=== PATIENT | female | born 1950 | race American Indian/Alaskan Native ===

== ENCOUNTER 2016-10-02 19:10 | Inpatient (IN) | payer MEDICARE ==
[2016-10-02 19:10] VITALS: BMI 28.3
--- NOTE | 2016-10-02 20:00 | C.PDOC ---
History Of Present Illness Patient with a Hx of a spinal tumor presents to the ER with a complaint of a dull, aching, cramping, abdominal pain. Patient is currently speaking in complete sentences; denies nausea, vomiting, or urinary symptoms. Time Seen by Provider: 10/02/16 20:00 Chief Complaint (Nursing): Abdominal Pain History Per: Patient History/Exam Limitations: no limitations Onset/Duration Of Symptoms: Hrs Current Symptoms Are (Timing): Still Present Severity: Moderate Pain Scale Rating Of: 4 Location Of Pain/Discomfort: Diffuse Radiation Of Pain To:: None Quality Of Discomfort: Dull, Aching, Cramping Associated Symptoms: denies: Fever, Chills, Nausea, Vomiting Exacerbating Factors: None Alleviating Factors: None Recent travel outside of the [place]: No Abnormal Vaginal Bleeding: No Past Medical History Reviewed: Historical Data, Nursing Documentation, Vital Signs Vital Signs: Last Vital Signs Temp 97.3 F L 10/02/16 19:15 Pulse 105 H 10/03/16 00:20 Resp 20 10/03/16 00:20 BP 115/78 10/03/16 00:20 Pulse Ox 100 10/03/16 00:20 - Medical History PMH: HTN, Parkinson's Disease Surgical History: No Surg Hx Family History: States: No Known Family Hx - Social History Hx Alcohol Use: No Hx Substance Use: No - Immunization History Hx Tetanus Toxoid Vaccination: Yes Hx Influenza Vaccination: No Hx Pneumococcal Vaccination: No Review Of Systems Constitutional: Negative for: Fever, Chills Gastrointestinal: Positive for: Abdominal Pain. Negative for: Nausea, Vomiting Physical Exam - Physical Exam Appears: Non-toxic Skin: Warm, Dry Head: Normacephalic Eye(s): bilateral: Normal Inspection Oral Mucosa: Dry Neck: Supple Chest: Symmetrical, No Tenderness, Other (port r chest) Cardiovascular: Rhythm Regular, No Murmur Respiratory: Rales (r>L), No Rhonchi, No Wheezing Gastrointestinal/Abdominal: Soft, Tenderness (Diffuse), No Distention, No Rebound Back: No CVA Tenderness Extremity: No Tenderness Extremity: Bilateral: Atraumatic, Normal Color And Temperature Pulses: Left Dorsalis Pedis: Normal, Right Dorsalis Pedis: Normal Neurological/Psych: Oriented x3, Normal Speech, Normal Cognition Gait: Steady ED Course And Treatment - Laboratory Results Result Diagrams: 10/02/16 20:43 10/02/16 20:43 O2 Sat by Pulse Oximetry: 98 (Room air) Pulse Ox Interpretation: Normal Progress Note: Blood work and urinalysis ordered. Pepcid, morphine, zofran, and IV fluids administered. Disposition Discussed With DrJose E: Charu Gustafson Comment: accepted the pt on her service and took over the care at 1AM Doctor Will See Patient In The: Hospital Counseled Patient/Family Regarding: Studies Performed, Diagnosis - Disposition Disposition: HOSPITALIZED Disposition Time: 20:00 Condition: FAIR Forms: Factor 14 (Croatian) - POA Present On Arrival: Poor Glycemic Control - Clinical Impression Clinical Impression: Abdominal pain, Dyspnea, CHF (congestive heart failure), Leukopenia - Scribe Statement The provider has reviewed the documentation as recorded by the Scribe Eugenio Paez All medical record entries made by the Scribe were at my direction and personally dictated by me. I have reviewed the chart and agree that the record accurately reflects my personal performance of the history, physical exam, medical decision making, and the department course for this patient. I have also personally directed, reviewed, and agree with the discharge instructions and disposition. Decision To Admit - Pt Status Changed To: Hospital Disposition Of: Inpatient - Admit Certification Admit to Inpatient:: After my assessment, the patient will require hospitalization for at least two midnights. This is because of the severity of symptoms shown, intensity of services needed, and/or the medical risk in this patient being treated as an outpatient. - InPatient: Physician Admission Certification:: After my assessment, the patient will require hospitalization for at least two midnights. This is because of the severity of symptoms shown, intensity of services needed, and/or the medical risk in this patient being treated as an outpatient. - . Bed Request Type: Telemetry Admitting Physician: Charu Gustafson Patient Diagnosis: Abdominal pain, Dyspnea, CHF (congestive heart failure), Leukopenia
[2016-10-02] MEDS ORDERED: Sodium Chloride 0.9% 1,000 ML IV ONE (20:09)
[2016-10-02 20:47] LABS: BASO % 0.6 % (0.0-2.0); EOS % 0.4 % (0.0-4.0); HEMATOCRIT 42.4 % (34.0-47.0); LYMPH # 1.5 K/uL (1.0-4.3); LYMPH % 48.6 % (20.0-40.0); MEAN CELL VOLUME 95.7 fL (81.0-99.0); MEAN CORPUSCULAR HEMOGLOBIN 31.5 pg (27.0-31.0); MEAN CORPUSCULAR HGB CONC 32.9 g/dL (33.0-37.0); MEAN PLATELET VOLUME 9.8 fL (7.2-11.7); MONO # 0.4 K/uL (0.0-0.8); MONO % 12.2 % (0.0-10.0); NRBC % 0.2 % (0.0-2.0)
[2016-10-02 20:58] LABS: CHLORIDE 106 mmol/L (98-107)
[2016-10-02 20:59] LABS: INR 1.3; POTASSIUM 3.3 mmol/L (3.6-5.2); SODIUM 142 mmol/L (132-148)
[2016-10-02 21:01] LABS: ALB/GLOB RATIO 1.6 (1.0-2.1); AST/SGOT 25 U/L (14-36); BILIRUBIN,TOTAL 1.1 mg/dL (0.2-1.3); BLOOD UREA NITROGEN 18 mg/dL (7-17); CARBON DIOXIDE 20 mmol/L (22-30); GFR AFRICAN-AMERICAN > 60; TOTAL PROTEIN 5.7 g/dL (6.3-8.3)
[2016-10-02 21:02] LABS: ALKALINE PHOSPHATASE 92 U/L (38-126); ALT/SGPT 20 U/L (9-52); GLUCOSE,RANDOM 112 mg/dL (65-105)
[2016-10-02] MEDS ORDERED: Iodixanol 320 MG/ML 100 ML BOTTLE IV ONE (21:26)
--- NOTE | 2016-10-02 22:58 | CT ---
EXAM: CT Abdomen and Pelvis With Intravenous Contrast CLINICAL HISTORY: 65 years old, female; Pain and condition or disease; Cancer; Other: Lymphoma/spine; Abdominal pain; Generalized; Additional info: Abd pain, spinal ca TECHNIQUE: Axial computed tomography images of the abdomen and pelvis with intravenous contrast. This CT exam was performed using one or more of the following dose reduction techniques: automated exposure control, adjustment of the mA and/or kV according to patient size, and/or use of iterative reconstruction technique. Coronal and sagittal reformatted images were created and reviewed. CONTRAST: 100 mL of visipaque 320 administered intravenously. COMPARISON: No relevant prior studies available. FINDINGS: Lower thorax: Moderate bilateral pleural effusions are identified, right greater than left with adjacent compressive atelectasis. The heart is enlarged, with a small pericardial effusion. ABDOMEN: Liver: No acute findings. Gallbladder and bile ducts: The gallbladder is minimally distended, without calcified stones. Pericholecystic fluid is detected with adjacent inflammatory change. No significant intra- or extrahepatic biliary ductal dilation. Pancreas: Enhances homogeneously. No ductal dilation. No discrete mass. Spleen: No acute findings. Adrenals: No acute findings. Kidneys and ureters: No acute findings. No hydronephrosis or renal calculi. No discrete solid mass. PELVIS: Bladder: No acute findings. Reproductive: No acute findings. Appendix: The appendix is of normal caliber (series 3, image 132; series 601, image 47) . ABDOMEN and PELVIS: Stomach and bowel: No obstruction. Trace mural thickening within the pylorus, as well as within multiple loops of nondistended small bowel, possibly reactive. Peritoneum: Free fluid is identified within the right paracolic gutter and retroperitoneum extending into the pelvis. Lymph nodes: Minimally enlarged lymph nodes are identified within the retroperitoneum and at the root of the mesentery, a nonspecific finding. Vasculature: Calcified atherosclerotic disease. Bones: No acute fracture. Prior vertebral augmentation is present within the L4 vertebral body. IMPRESSION: Minimal distention of the gallbladder with pericholecystic fluid and adjacent inflammatory change, for which dedicated ultrasound is suggested.
[2016-10-02 23:22] LABS: RBC URINE 1 /hpf (0-3); URINE BACTERIA OCC (<OCC); URINE BILIRUBIN 1+ (NEGATIVE); URINE BLOOD NEGATIVE (NEGATIVE); URINE COLOR Amber (YELLOW); URINE GLUCOSE (UA) NORMAL (Normal); URINE KETONE 1+ mg/dL (NEGATIVE); URINE LEUKOCYTE ESTERASE NEG Leu/uL (Negative); URINE PROTEIN 1+ mg/dL (NEGATIVE); URINE UROBILINOGEN NORMAL mg/dL (0.2-1.0); WBC URINE 3 /hpf (0-5)
[2016-10-03 01:02] LABS: TROPONIN I 0.061 ng/mL (0.00-0.120)
[2016-10-03] MEDS ORDERED: Potassium Chloride 10 mEq ER Tab PO STA (04:39)
[2016-10-03] MEDS ORDERED: Potassium Chloride 20 mEq ER Tab PO ONE ×2 (05:14→20:15)
--- NOTE | 2016-10-03 08:16 | RAD ---
PROCEDURE: CHEST RADIOGRAPH, 1 VIEW HISTORY: Shortness of breath COMPARISON: None available. FINDINGS: LUNGS: Right chest wall port with tip extending to the cavoatrial junction. Diffuse increased interstitial lung markings bilaterally suggestive for edema and or infiltrate. Right hilar prominence. Prominent increased markings at both lung bases suggestive for infiltrate and or edema. Consolidative changes at the right lung base. Blunted right costophrenic angle. PLEURA: As above. CARDIOVASCULAR: Cardiomegaly. OSSEOUS STRUCTURES: Degenerative changes in the spine with paravertebral osteophytes. VISUALIZED UPPER ABDOMEN: Normal. OTHER FINDINGS: None. IMPRESSION: Right chest wall port with tip extending to the cavoatrial junction. Diffuse increased interstitial lung markings bilaterally suggestive for edema and or infiltrate. Right hilar prominence. Prominent increased markings at both lung bases suggestive for infiltrate and or edema. Consolidative changes at the right lung base. Blunted right costophrenic angle.
[2016-10-03] MEDS ORDERED: HYDROmorphone 0.5 mg/0.5 ml ISec IVP PRN (15:15)
[2016-10-03] MEDS ORDERED: Carbidopa/Levodopa 25/100 CR PO SCH (18:00)
[2016-10-03] MEDS: Carbidopa/Levodopa 25/100 CR PO SCH (19:31)
--- NOTE | 2016-10-04 02:46 | CP.PCM.CON ---
History of Present Illness - History of Present Illness History of Present Illness: Consultation for evaluation of CHF HPI : 65-year-old female with past medical history significant for Parkinson's disease that was diagnosed 3 years ago according to her family members. History was obtained with the help of yi Truong and her sister who are at the bedside. 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 She initially had gone to be [facility] and was subsequently transferred over to [facility] due to inability to walk . After the diagnosis of the lymphoma she had undergone a kyphoplasty. She was followed by Dr. Khushboo Pimentel at [place] who also has a office in [place]. She had undergone chemotherapy and had undergone a PET scan about 10 days ago at [facility] on September 24. According to yi Truong she has been reasonably active was in [place] for 3 month and subsequently in [place] for 3 months and then recently she has been here for the last few months. At baseline she was doing well until recently when she started to have severe shortness of breath wheezing and abdominal discomfort. She was brought to the hospital by her brother for evaluation of worsening shortness of breath new onset and evaluation. She was seen by some bed operator about 5-6 months ago at [facility] and was told that she will have further workup as outpatient was would not follow through. Currently she is laying in bed comfortably. And into initial presentation her BNP was noted to be very high at 6000 for which further workup has to be ordered. Review of Systems - Review of Systems All systems: reviewed and no additional remarkable complaints except - Constitutional Constitutional: As Per HPI, Fatigue, Lethargy, Malaise. absent: Anorexia, Chills, Daytime Sleepiness, Excessive Sweating, Fever, Frequent Falls, Headache , Increased Appetite, Night Sweats, Snoring, Sleep Apnea, Weight Gain, Weight Loss, Weakness, Other - EENT Eyes: As Per HPI. absent: Blind Spots, Blurred Vision, Change in Vision, Decreased Night Vision, Diplopia, Discharge, Dry Eye, Exophthalmos, Floaters, Irritation, Itchy Eyes, Loss of Peripheral Vision, Pain, Photophobia, Requires Corrective Lenses, Sees Flashes, Spots in Vision, Tunnel Vision, Other Visual Disturbances, Loss of Vision, Other Ears: As Per HPI. absent: Decreased Hearing, Ear Discharge, Ear Pain, Tinnitus , Abnormal Hearing, Disequilibrium, Dizziness, Other Nose/Mouth/Throat: As Per HPI. absent: Epistaxis, Nasal Congestion, Nasal Discharge, Nasal Obstruction, Nasal Trauma, Nose Pain, Post Nasal Drip, Sinus Pain, Sinus Pressure, Bleeding Gums, Change in Voice, Dental Pain, Dry Mouth, Dysphagia, Halitosis, Hoarsness, Lip Swelling, Mouth Lesions, Mouth Pain, Odynophagia, Sore Throat, Throat Swelling, Tongue Swelling, Facial Pain, Neck Pain, Neck Mass, Other - Breasts Breasts: As Per HPI. absent: Change in Shape, Mass, Pain, Nipple Discharge, Nipple Inversion, Skin Changes, Swelling, Other - Cardiovascular Cardiovascular: Dyspnea on Exertion, Orthopnea, Paroxysmal Nocturnal Dyspnea, Rapid Heart Rate. absent: As Per HPI, Acrocyanosis, Chest Pain, Chest Pain at Rest, Chest Pain with Activity, Claudication, Diaphoresis, Dyspnea, Edema, Irregular Heart Rhythm, Pain Radiating to Arm/Neck/Jaw, Leg Edema, Leg Ulcers, Lightheadedness, Palpitations, Pedal Edema, Radiating Pain, Slow Heart Rate, Syncope, Other - Respiratory Respiratory: As Per HPI, Cough, Dyspnea, Dyspnea on Exertion. absent: Hemoptysis, Wheezing, Snoring, Stridor, Pain on Inspiration, Chest Congestion, Excessive Mucous Production, Change in Mucous Color, Pain with Coughing, Other - Gastrointestinal Gastrointestinal: As Per HPI, Abdominal Pain, Constipation, Dyspepsia, Nausea. absent: Belching, Bloating, Change in Bowel Habits, Change in Stool Character, Coffee Ground Emesis, Cramping, Diarrhea, Dysphagia, Early Satiety, Excessive Flatus, Fecal Incontinence, Heartburn, Hematemesis, Hematochezia, Loose Stools, Melena, Odynophagia, Temesmus, Vomiting, Other - Genitourinary Genitourinary: As Per HPI. absent: Change in Urinary Stream, Difficulty Urinating, Dysuria, Flank Pain, Hematuria, Pyuria, Nocturia, Urinary Incontinence, Urinary Frequency, Urinary Hesitance, Urinary Urgency, Voiding Freq/Small Amts, Freq UTI, Hx Renal/Bladder Calculi, Hx /Renal Surgery, Bladder Distension, Other - Musculoskeletal Musculoskeletal: As Per HPI. absent: Abnormal Gait, Arthralgias, Atrophy, Back Pain, Deformity, Joint Swelling, Limited Range of Motion, Loss of Height, Muscle Cramps, Muscle Weakness, Myalgias, Neck Pain, Numbness, Radiating Pain into Limb, Stiffness, Tingling, Other - Integumentary Integumentary: As Per HPI - Neurological Neurological: As Per HPI, Abnormal Gait. absent: Abnormal Hearing, Abnormal Movements, Abnormal Speech, Behavioral Changes, Burning Sensations, Confusion, Convulsions, Disequilibrium, Dizziness, Numbness, Focal Weakness, Frequent Falls , Headaches, Lack of Coordination, Loss of Vision, Memory Loss, Paresthesias, Radicular Pain, Restless Legs, Sensory Deficit, Syncope, Tingling, Tremor, Vertigo, Weakness, Other Visual Disturbances, Other - Psychiatric Psychiatric: As Per HPI, Depression. absent: Abnormal Sleep Pattern, Anhedonia , Anxiety, Auditory Hallucinations, Behavioral Changes, Change in Appetite, Change in Libido, Confusion, Difficulty Concentrating, Hallucinations, Homicidal Ideation, Hopelessness, Irritability, Memory Loss, Mood Swings, Panic Attacks, Paranoia, Suicidal Ideation, Visual Hallucinations, Tactile Hallucinations, Other - Endocrine Endocrine: As Per HPI. absent: Change in Body Appearance, Change in Libido, Cold Intolorance, Deepening of Voice, Excessive Sweating, Fatigue, Flushing, Heat Intolorance, Increase in Ring/Shoe/Hat Size, Palpitations, Polydipsia, Polyphagia, Polyuria, Other - Hematologic/Lymphatic Hematologic: As Per HPI. 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 ) Hx Chemotherapy: Yes (R-CHOP therapy ) Other/Comment: " I HAVE SOME KIND OF CANCER IN MY BACK" - MUSCULOSKELETAL/RHEUMATOLOGICAL Hx Back Pain: Yes (kyphoplasty ) Hx Falls: No Hx Herniated Disk: Yes - GASTROINTESTINAL Hx Constipation: Yes - PSYCHIATRIC Hx Substance Use: No - ANESTHESIA Hx Anesthesia: Yes Hx Anesthesia Reactions: No Meds Allergies/Adverse Reactions: Allergies Allergy/AdvReac Type Severity Reaction Status Date / Time No Known Allergies Allergy Unverified 11/29/15 17:54 - Medications Medications: Current Medications Carbidopa/Levodopa (Sinemet Cr) 1 tab PO BID [facility] Last Admin: 10/03/16 19:31 Dose: 1 tab Docusate Sodium (Colace) 100 mg PO TID [facility] Last Admin: 10/03/16 19:23 Dose: 100 mg Entacapone (Comtan) 200 mg PO BID [facility] Last Admin: 10/03/16 19:23 Dose: 200 mg Famotidine (Pepcid) 40 mg PO DAILY [facility] Furosemide (Lasix) 40 mg IVP Q12H [facility] Last Admin: 10/03/16 20:22 Dose: 40 mg Hydromorphone HCl (Dilaudid) 0.5 mg IVP Q4H PRN PRN Reason: Pain, Mild (1-3) Potassium Chloride (K-Dur 20 Meq Er Tab) 20 meq PO DAILY [facility] Sennosides (Senokot Tab) 8.6 mg PO DAILY [facility] Physical Exam - Constitutional Appears: Well - Head Exam Head Exam: ATRAUMATIC, NORMAL INSPECTION, NORMOCEPHALIC - Eye Exam Eye Exam: EOMI, Normal appearance, PERRL Pupil Exam: NORMAL ACCOMODATION, PERRL - ENT Exam ENT Exam: Mucous Membranes Moist, Normal Exam - Neck Exam Neck exam: Positive for: Normal Inspection - Respiratory Exam Respiratory Exam: Rales, Rhonchi, NORMAL BREATHING PATTERN - Cardiovascular Exam Cardiovascular Exam: Tachycardia, REGULAR RHYTHM, +S1, +S2, Systolic Murmur - GI/Abdominal Exam GI & Abdominal Exam: Normal Bowel Sounds, Soft, Tenderness - Extremities Exam Extremities exam: Positive for: normal inspection - Back Exam Back exam: NORMAL INSPECTION - Neurological Exam Neurological exam: Alert, CN II-XII Intact, Oriented x3, Reflexes Normal - Psychiatric Exam Psychiatric exam: Normal Affect, Normal Mood - Skin Skin Exam: Dry, Intact, Normal Color, Warm Results - Vital Signs Recent Vital Signs: Last Vital Signs Temp 97.9 F 10/03/16 23:30 Pulse 113 H 10/03/16 23:44 Resp 20 10/03/16 23:30 BP 105/65 10/03/16 23:30 Pulse Ox 96 10/03/16 23:30 - Labs Result Diagrams: 10/02/16 20:43 10/04/16 10:59 Labs: Laboratory Results - last 24 hr 08/11/1110/03/16 10/03/16 06:26 13:51 22:45 Total Creatine Kinase 74 51 51 CK-MB (Mass) 0.82 0.78 0.72 Troponin I, Quant 0.0480 0.0470 0.0730 Assessment & Plan (1) CHF (congestive heart failure) Assessment and Plan: Acute on chronic systolic heart failure class IV stage D. New onset congestive heart failure. Will need to be have evaluation with her high BNP. Initiate her on low-dose Lasix and rest modulators her creatinine function is normal. Dr. Arnett from oncology told me that she had R CHOP therapy about 6 months ago. An echocardiogram done prior to the arch showed normal ejection fraction. She was not on any rest modulators prior to this admission. Check echocardiogram and if depending on the ejection fraction will need further ischemic evaluation. Status: Acute (2) Dyspnea Status: Acute (3) H/O lymphoma Status: Acute
[2016-10-04] MEDS: Potassium Chloride 20 mEq ER Tab PO SCH (10:21)
[2016-10-04] MEDS: Carbidopa/Levodopa 25/100 CR PO SCH ×3 (10:21→21:03)
[2016-10-04] MEDS: Enoxaparin 40 mg Syringe SC SCH (10:21)
[2016-10-04 11:20] LABS: BLOOD UREA NITROGEN 18 mg/dL (7-17); CALCIUM 8.8 mg/dl (8.6-10.4); CARBON DIOXIDE 26 mmol/L (22-30); CHLORIDE 104 mmol/L (98-107); GFR AFRICAN-AMERICAN > 60; GLUCOSE,RANDOM 119 mg/dL (65-105); POTASSIUM 3.2 mmol/L (3.6-5.2); SODIUM 144 mmol/L (132-148)
--- NOTE | 2016-10-04 11:38 | CP.PCM.CON ---
History of Present Illness - History of Present Illness History of Present Illness: 65 yo female admitted with Sob and exacerbation of CHF. Noted to have diffuse abdominal pain, mainly in upper to mid abdomen, for past 3-4 days. Noted to be constipated and no stool for past [address] showed thickening of GB wall and pericholecystic fluid. NO h/o stones. No bleeding or melena. Has h/o lymphoma deemed to be in remission. Review of Systems - Review of Systems Systems not reviewed;Unavailable: Language Barrier - Cardiovascular Cardiovascular: Dyspnea, Dyspnea on Exertion, Orthopnea - Respiratory Respiratory: Cough, Dyspnea - Gastrointestinal Gastrointestinal: As Per HPI Past Patient History - Past Social History Smoking Status: Never Smoked Alcohol: None Drugs: Denies - CARDIAC Hx Hypertension: Yes - NEUROLOGICAL Hx Parkinson's Disease: Yes - HEMATOLOGICAL/ONCOLOGICAL Other/Comment: " I HAVE SOME KIND OF CANCER IN MY BACK" - MUSCULOSKELETAL/RHEUMATOLOGICAL Hx Falls: No - PSYCHIATRIC Hx Substance Use: No - ANESTHESIA Hx Anesthesia: No Hx Anesthesia Reactions: No Meds Allergies/Adverse Reactions: Allergies Allergy/AdvReac Type Severity Reaction Status Date / Time No Known Allergies Allergy Unverified 11/29/15 17:54 - Medications Medications: Current Medications Carbidopa/Levodopa (Sinemet Cr) 1 tab PO BID REPLACED BY [facility] Last Admin: 10/04/16 10:21 Dose: 1 tab Docusate Sodium (Colace) 100 mg PO TID REPLACED BY [facility] Last Admin: 10/04/16 10:21 Dose: 100 mg Enoxaparin Sodium (Lovenox) 40 mg SC DAILY REPLACED BY [facility] Last Admin: 10/04/16 10:21 Dose: 40 mg Entacapone (Comtan) 200 mg PO BID REPLACED BY [facility] Last Admin: 10/04/16 10:23 Dose: 200 mg Famotidine (Pepcid) 40 mg PO DAILY [facility]PL[facility] BY [facility] Last Admin: 10/04/16 10:21 Dose: 40 mg Furosemide (Lasix) 40 mg IVP Q12H REPLACED BY [facility] Last Admin: 10/04/16 08:50 Dose: Not Given Hydromorphone HCl (Dilaudid) 0.5 mg IVP Q4H PRN PRN Reason: Pain, Mild (1-3) Potassium Chloride (K-Dur 20 Meq Er Tab) 20 meq PO DAILY [facility]PL[facility]ED BY [facility] Last Admin: 10/04/16 10:21 Dose: 20 meq Sennosides (Senokot Tab) 8.6 mg PO DAILY [facility] Last Admin: 10/04/16 10:21 Dose: 8.6 mg Physical Exam - Constitutional Appears: No Acute Distress - Head Exam Head Exam: ATRAUMATIC, NORMOCEPHALIC - Respiratory Exam Respiratory Exam: Decreased Breath Sounds, NORMAL BREATHING PATTERN - Cardiovascular Exam Cardiovascular Exam: REGULAR RHYTHM, +S1 - GI/Abdominal Exam GI & Abdominal Exam: Distended, Normal Bowel Sounds, Soft, Tenderness. absent: Mass, Organomegaly, Rebound Additional comments: Mild midabdominal tenderness to deep palpation with mild gaseous distension. No mass or guarding. - Rectal Exam Rectal Exam: Deferred - Extremities Exam Extremities exam: Positive for: normal inspection - Neurological Exam Neurological exam: Alert Additional comments: Mildly confused to time - Psychiatric Exam Psychiatric exam: Normal Affect, Normal Mood - Skin Skin Exam: Dry, Warm Results - Vital Signs Recent Vital Signs: Last Vital Signs Temp 98.0 F 10/04/16 08:02 Pulse 103 H 10/04/16 10:31 Resp 20 10/04/16 08:02 BP 92/60 L 10/04/16 10:31 Pulse Ox 100 10/04/16 08:02 - Labs Result Diagrams: 10/02/16 20:43 10/04/16 10:59 Labs: Laboratory Results - last 24 hr 10/03/16 10/03/16 10/04/16 13:51 22:45 10:59 Sodium 144 Potassium 3.2 L Chloride 104 Carbon Dioxide 26 Anion Gap 17 BUN 18 H Creatinine 0.7 Est GFR ( Amer) > 60 Est GFR (Non-Af Amer) > 60 Random Glucose 119 H Calcium 8.8 Total Creatine Kinase 51 51 CK-MB (Mass) 0.78 0.72 Troponin I, Quant 0.0470 0.0730 - Imaging and Cardiology CT scan - abdomen Status: Image reviewed by me, Report reviewed by me Assessment & Plan (1) Upper abdominal pain Assessment and Plan: r/o cholecystitis, partial SBO, lymphoma with mesenteric nodes/ascites, other etiology. May be related to constipation. Sono and HIDA Scan ordered to r/o acalculous cholecystitis Stool softener + Miralax prn. Status: Acute (2) Cholecystitis Assessment and Plan: pericholecystic fluid and GB thickening suspicious for cholecystitis. Sono pending per Dr Hawkins Advise HIDA Scan. Status: Acute (3) H/O lymphoma Status: Chronic
--- NOTE | 2016-10-04 11:41 | CP.PCM.HP ---
History of Present Illness - History of Present Illness History of Present Illness: Admitted this patient because of abdominal pains and SOB. Patient claims she started to have the pains all over her abdomen shortness o9f breath for a fews days. No chest pains associated, or palpitations. No nauisrea or vomiting assocaited. She claims she has been Constipated x 3 days now. Present on Admission - Present on Admission Any Indicators Present on Admission: No Review of Systems - Review of Systems Systems not reviewed;Unavailable: Altered Mental Status - Cardiovascular Cardiovascular: Dyspnea - Gastrointestinal Gastrointestinal: Abdominal Pain, Constipation - Reproductive: Female Reproductive:Female: Menopausal - Integumentary Integumentary: absent: As Per HPI, Acne, Alopecia, Bleeding Lesions, Change in Hair, Change in Nails, Change in Pigmentation, Changing Lesions, Dry Skin, Erythema, Furuncle, Hirsutism, Lesions, New Lesions, Non-Healing Lesions, Photosensitivity, Pruritus, Rash, Skin Pain, Skin Ulcer, Sores, Striae, Swelling , Unusual Bruising, Wounds, Jaundice, Other - Neurological Neurological: Confusion Past Patient History - Tetanus Immunizations Tetanus Immunization: Unknown - Past Medical History & Family History Past Medical History?: Yes - Past Social History Smoking Status: Never Smoked Chewing Tobacco Use: No Cigar Use: No Drugs: Denies - CARDIAC Hx Cardiac Disorders: No Hx Hypertension: Yes - PULMONARY Hx Respiratory Disorders: No - NEUROLOGICAL Hx Neurological Disorder: No Hx Parkinson's Disease: Yes - HEENT Hx HEENT Problems: No - RENAL Hx Chronic Kidney Disease: No - HEMATOLOGICAL/ONCOLOGICAL Hx Blood Disorders: No Other/Comment: " I HAVE SOME KIND OF CANCER IN MY BACK" - INTEGUMENTARY Hx Dermatological Problems: No - MUSCULOSKELETAL/RHEUMATOLOGICAL Hx Back Pain: Yes Hx Falls: No - GASTROINTESTINAL Hx Gastrointestinal Disorders: No - PSYCHIATRIC Hx Substance Use: No - ANESTHESIA Hx Anesthesia: No Hx Anesthesia Reactions: No Meds Allergies/Adverse Reactions: Allergies Allergy/AdvReac Type Severity Reaction Status Date / Time No Known Allergies Allergy Unverified 11/29/15 17:54 Physical Exam - Constitutional Appears: Chronically Ill - Head Exam Head Exam: ATRAUMATIC, NORMAL INSPECTION, NORMOCEPHALIC - Eye Exam Eye Exam: Normal appearance Pupil Exam: NORMAL ACCOMODATION, PERRL - ENT Exam ENT Exam: Mucous Membranes Moist, Normal External Ear Exam - Neck Exam Neck exam: Positive for: Tenderness - Respiratory Exam Respiratory Exam: Rales, NORMAL BREATHING PATTERN - Cardiovascular Exam Cardiovascular Exam: Irregular Rhythm - GI/Abdominal Exam GI & Abdominal Exam: Normal Bowel Sounds, Soft, Tenderness - Rectal Exam Rectal Exam: Deferred - Extremities Exam Extremities exam: Positive for: full ROM, normal inspection - Back Exam Back exam: NORMAL INSPECTION - Neurological Exam Neurological exam: Altered - Psychiatric Exam Psychiatric exam: Anxious - Skin Skin Exam: Dry, Intact, Warm Results - Vital Signs Recent Vital Signs: Last Vital Signs Temp 98.0 F 10/04/16 08:02 Pulse 103 H 10/04/16 10:31 Resp 20 10/04/16 08:02 BP 92/60 L 10/04/16 10:31 Pulse Ox 100 10/04/16 08:02 - Labs Result Diagrams: 10/02/16 20:43 10/04/16 10:59 Labs: Laboratory Results - last 24 hr 10/03/16 10/03/16 10/04/16 13:51 22:45 10:59 Sodium 144 Potassium 3.2 L Chloride 104 Carbon Dioxide 26 Anion Gap 17 BUN 18 H Creatinine 0.7 Est GFR ( Amer) > 60 Est GFR (Non-Af Amer) > 60 Random Glucose 119 H Calcium 8.8 Total Creatine Kinase 51 51 CK-MB (Mass) 0.78 0.72 Troponin I, Quant 0.0470 0.0730 Assessment & Plan (1) Abdominal pain Status: Acute (2) CHF (congestive heart failure) Status: Acute (3) Dyspnea Status: Acute - Assessment and Plan (Free Text) Assessment: Assessment: CHF Cardiac arrythymia V Tach. Spinal lymphoma. Situational confusion. Abdominal pains. Plan: Plan: Cardiology consult. GI consult. US abdomen. Fluids PO.
[2016-10-04 12:59] LABS: AMYLASE 45 U/L (30-110)
--- NOTE | 2016-10-04 13:30 | US ---
HISTORY: Abdominal pain COMPARISON: CT abdomen and pelvis with IV contrast performed 10/14/16 TECHNIQUE: Sonographic evaluation of the abdomen. FINDINGS: LIVER: Measures 12.9 cm in sagittal dimension. Echogenic liver may be seen in setting of hepatic parenchymal disease or fatty infiltration. No focal hepatic mass identified. The main portal vein appears patent with normal directional flow. No intrahepatic bile duct dilatation. Perihepatic ascites. GALLBLADDER: No gallstones. Gallbladder wall appears thickened measuring up to 5 mm. Negative sonographic Gallagher's sign as assessed by the rock mason. COMMON BILE DUCT: Measures 2 mm. PANCREAS: Not well visualized. RIGHT KIDNEY: Measures 10.5 x 3.7 x 5.2cm. No obstructing calculus or hydronephrosis identified. 1.2 x 1.0 x 1.3 cm right renal cyst. LEFT KIDNEY: Measures 10.6 x 5.0 x 5.3cm. No obstructing calculus or hydronephrosis identified. SPLEEN: Measures approximately 6.1 cm. AORTA: Limited views appear unremarkable. IVC: Limited views appear unremarkable. OTHER FINDINGS: Incidental note is made of right pleural effusion. IMPRESSION: Echogenic liver may be seen in setting of hepatic parenchymal disease or fatty infiltration. Gallbladder wall appears thickened measuring up to 5 mm. No evidence of gallstones. Negative sonographic Gallagher's sign as assessed by the rock mason. 1.3 cm right renal cyst. Incidental note is made of right-sided pleural effusion. Small perihepatic ascites
--- NOTE | 2016-10-04 19:02 | CP.PCM.PN ---
Subjective - Date & Time of Evaluation Date of Evaluation: 10/04/16 Time of Evaluation: 18:59 - Subjective Subjective: was given a dose of lasix had significant diuresis feeling SOB mildly improved echo done today Objective - Vital Signs/Intake and Output Vital Signs (last 24 hours): Temp Pulse Resp BP Pulse Ox 97.9 F 105 H 20 93/62 L 99 10/04/16 16:00 10/04/16 17:10 10/04/16 16:00 10/04/16 16:00 10/04/16 16:00 Intake and Output: 10/04/16 10/04/16 06:59 18:59 Intake Total 170 500 Output Total 1000 Balance -830 500 - Medications Medications: Current Medications Carbidopa/Levodopa (Sinemet Cr) 2 tab PO QID [facility] Last Admin: 10/04/16 18:19 Dose: 2 tab Docusate Sodium (Colace) 100 mg PO TID [facility] Last Admin: 10/04/16 17:58 Dose: 100 mg Enoxaparin Sodium (Lovenox) 40 mg SC DAILY [facility] Last Admin: 10/04/16 10:21 Dose: 40 mg Entacapone (Comtan) 200 mg PO BID [facility] Last Admin: 10/04/16 17:59 Dose: 200 mg Famotidine (Pepcid) 40 mg PO DAILY [facility] Last Admin: 10/04/16 10:21 Dose: 40 mg Furosemide (Lasix) 40 mg IVP Q12H [facility] Last Admin: 10/04/16 08:50 Dose: Not Given Hydromorphone HCl (Dilaudid) 0.5 mg IVP Q4H PRN PRN Reason: Pain, Mild (1-3) Magnesium Hydroxide (Milk Of Magnesia) 30 ml PO ONCE ONE Stop: 10/04/16 20:01 Potassium Chloride (K-Dur 20 Meq Er Tab) 20 meq PO DAILY [facility] Last Admin: 10/04/16 10:21 Dose: 20 meq Sennosides (Senokot Tab) 8.6 mg PO DAILY [facility] Last Admin: 10/04/16 10:21 Dose: 8.6 mg - Labs Labs: 10/04/16 10:59 PT 14.3 SECONDS (9.7-12.2) H 10/02/16 20:43 INR 1.3 10/02/16 20:43 APTT 30 SECONDS (21-34) 10/02/16 20:43 - Constitutional Appears: Well - Head Exam Head Exam: ATRAUMATIC, NORMAL INSPECTION, NORMOCEPHALIC - Eye Exam Eye Exam: EOMI, Normal appearance, PERRL Pupil Exam: NORMAL ACCOMODATION, PERRL - ENT Exam ENT Exam: Mucous Membranes Moist, Normal Exam - Neck Exam Neck Exam: Full ROM, Normal Inspection. absent: Lymphadenopathy - Respiratory Exam Respiratory Exam: Clear to Ausculation Bilateral, Rales, NORMAL BREATHING PATTERN - Cardiovascular Exam Cardiovascular Exam: Tachycardia, +S1, +S2, Murmur - GI/Abdominal Exam GI & Abdominal Exam: Soft, Normal Bowel Sounds. absent: Tenderness - Extremities Exam Extremities Exam: Full ROM, Normal Capillary Refill, Normal Inspection. absent : Joint Swelling, Pedal Edema - Back Exam Back Exam: NORMAL INSPECTION - Neurological Exam Neurological Exam: Alert, Awake, CN II-XII Intact, Oriented x3 - Psychiatric Exam Psychiatric exam: Normal Affect, Normal Mood - Skin Skin Exam: Dry, Intact, Normal Color, Warm Assessment and Plan (1) CHF (congestive heart failure) Assessment & Plan: Echo reviewed shows EF of 20-25% with MR and TR and dilated LV BB and ACEi low dose lasix therapy plan for complete heart catheterization in am NPO p MN Status: Acute (2) Dyspnea Assessment & Plan: 2' to CHF and pulmonary congestion low dose diuretic therapy Status: Acute (3) H/O lymphoma Assessment & Plan: in remission per oncologist had R-Chop about 6 months ago and had f/u PET scan on 09/24 results of which are not available Status: Acute
[2016-10-04] MEDS ORDERED: Metoprolol Succinate 25 mg XL Tab PO STA (19:07)
[2016-10-04] MEDS ORDERED: Metoprolol Succinate 12.5 mg XL PO ONE (19:30)
[2016-10-04] MEDS ORDERED: Magnesium Hydroxide Susp 30 ml UD PO ONE (20:00)
[2016-10-04] MEDS ORDERED: Potassium Chloride 20 mEq ER Tab PO STA (20:23)
[2016-10-04] MEDS: POLYETHYLENE GLYCOL 3350 17 GM/Dose PACKET PO PRN (22:23)
--- NOTE | 2016-10-05 01:04 | CARD ---
APPROVED REPORT EXAM: Two-dimensional and M-mode echocardiogram with Doppler and color Doppler. Other Information Quality : GoodRhythm : NSR INDICATION Dyspnea Congestive Heart Failure RISK FACTORS Hypertension 2D DIMENSIONS IVSd0.8 (0.7-1.1cm)LVDd5.3 (3.9-5.9cm) PWd0.7 (0.7-1.1cm)LVDs4.8 (2.5-4.0cm) FS (%) 9.3 %LVEF (%)20.4 (>50%) M-Mode DIMENSIONS RVDd2.25 (2.1-3.2cm)Left Atrium (MM)4.83 (2.5-4.0cm) IVSd0.81 (0.7-1.1cm)Aortic Root2.62 (2.2-3.7cm) LVDd6.23 (4.0-5.6cm)Aortic Cusp Exc.0.77 (1.5-2.0cm) PWd0.74 (0.7-1.1cm)FS (%) 13 % LVDs5.42 (2.0-3.8cm)LVEF (%)27 (>50%) Aortic Valve AI P 1/2 [id number] Mitral Valve MV E Owjvuusi35.6cm/sE/A ratio0.0 TDI E/Lateral E'0.0E/Medial E'0.0 Tricuspid Valve TR Peak [id number]/sTR Peak [id number] LEFT VENTRICLE The Left Ventricle is moderately dilated. There is normal left ventricular wall thickness. Left ventricle systolic function is severely impaired. The Ejection Fraction is 25-30%. There is severe dyskinesis in the globally. The left ventricular diastolic function is normal. No left ventricle thrombus noted on this study. RIGHT VENTRICLE The right ventricle is mildly dilated. There is normal right ventricular wall thickness. Systolic function is severely reduced. ATRIA The left atrium is moderately dilated. The right atrium is severely dilated. The interatrial septum is intact with no evidence for an atrial septal defect. AORTIC VALVE The aortic valve is normal in structure. No aortic regurgitation is present. There is no aortic valvular stenosis. There is no aortic valvular vegetation. MITRAL VALVE The mitral valve is normal in structure. There is no evidence of mitral valve prolapse. There is no mitral valve stenosis. Mitral regurgitation is mild to moderate. TRICUSPID VALVE The tricuspid valve is normal in structure. There is mild to moderate tricuspid regurgitation. Right ventricular systolic pressure is estimated at 30-40 mmHg. There is mild pulmonary hypertension. PULMONIC VALVE The pulmonic valve is not well visualized. There is mild pulmonic valvular regurgitation. GREAT VESSELS The aortic root is normal in size. PERICARDIAL EFFUSION There is no significant pericardial effusion. <Conclusion> Dilated cardiomyopathy. Left ventricle systolic function is severely impaired. The Ejection Fraction is 25-30%. No aortic regurgitation is present. Mitral regurgitation is mild to moderate. There is mild to moderate tricuspid regurgitation. There is mild pulmonary hypertension. There is mild pulmonic valvular regurgitation.
--- NOTE | 2016-10-05 06:37 | CP.PCM.PN ---
Subjective - Date & Time of Evaluation Date of Evaluation: 10/05/16 Time of Evaluation: 06:37 - Subjective Subjective: s/p CHCx showing severely elevated filling pressures and severe pulmonary HTN Objective - Vital Signs/Intake and Output Vital Signs (last 24 hours): Temp Pulse Resp BP Pulse Ox 97.8 F 81 20 106/62 97 10/05/16 05:00 10/05/16 05:00 10/05/16 05:00 10/05/16 05:00 10/05/16 05:00 Intake and Output: 10/04/16 10/05/16 18:59 06:59 Intake Total 500 Balance 500 - Medications Medications: Current Medications Carbidopa/Levodopa (Sinemet Cr) 2 tab PO QID [facility] Last Admin: 10/04/16 21:03 Dose: 2 tab Docusate Sodium (Colace) 100 mg PO TID [facility] Last Admin: 10/04/16 17:58 Dose: 100 mg Enoxaparin Sodium (Lovenox) 40 mg SC DAILY [facility] Last Admin: 10/04/16 10:21 Dose: 40 mg Entacapone (Comtan) 200 mg PO BID [facility] Last Admin: 10/04/16 17:59 Dose: 200 mg Famotidine (Pepcid) 40 mg PO DAILY [facility] Last Admin: 10/04/16 10:21 Dose: 40 mg Furosemide (Lasix) 40 mg IVP Q24H [facility] Last Admin: 10/04/16 20:27 Dose: 40 mg Hydromorphone HCl (Dilaudid) 0.5 mg IVP Q4H PRN PRN Reason: Pain, Mild (1-3) Lisinopril (Zestril) 5 mg PO DAILY [facility] Polyethylene Glycol (Miralax) 17 gm PO HS PRN PRN Reason: Constipation Stop: 10/11/16 22:19 Last Admin: 10/04/16 22:23 Dose: 17 gm Potassium Chloride (K-Dur 20 Meq Er Tab) 20 meq PO DAILY [facility] Last Admin: 10/04/16 10:21 Dose: 20 meq - Labs Labs: 10/04/16 10:59 PT 14.3 SECONDS (9.7-12.2) H 10/02/16 20:43 INR 1.3 10/02/16 20:43 APTT 30 SECONDS (21-34) 10/02/16 20:43 - Constitutional Appears: Well - Head Exam Head Exam: ATRAUMATIC, NORMAL INSPECTION, NORMOCEPHALIC - Eye Exam Eye Exam: EOMI, Normal appearance, PERRL Pupil Exam: NORMAL ACCOMODATION, PERRL - ENT Exam ENT Exam: Mucous Membranes Moist, Normal Exam - Neck Exam Neck Exam: Full ROM, Normal Inspection. absent: Lymphadenopathy - Respiratory Exam Respiratory Exam: Rales, Rhonchi, NORMAL BREATHING PATTERN - Cardiovascular Exam Cardiovascular Exam: Tachycardia, +S1, +S2, Murmur - GI/Abdominal Exam GI & Abdominal Exam: Soft, Normal Bowel Sounds. absent: Tenderness - Extremities Exam Extremities Exam: Full ROM, Normal Capillary Refill, Normal Inspection. absent : Joint Swelling, Pedal Edema - Back Exam Back Exam: NORMAL INSPECTION - Neurological Exam Neurological Exam: Alert, Awake, CN II-XII Intact, Normal Gait, Oriented x3 - Psychiatric Exam Psychiatric exam: Normal Affect, Normal Mood - Skin Skin Exam: Dry, Intact, Normal Color, Warm Assessment and Plan (1) CHF (congestive heart failure) Assessment & Plan: Severely decompensated acute systolic heart failure will need inotropic support to help compensated as RA pressures / filling pressure very high consider intiation of milrinone therapy and then titrate RAAS modulation based on BP response after lengthy discussion , pt's PCP who I contacted last evening twice wants to have her pitch worker follow patient patient's family member aunmarva franklin also would like to follow PCP recommendations Status: Acute (2) Dyspnea Status: Acute (3) H/O lymphoma Status: Chronic
[2016-10-05] MEDS ORDERED: Nitroglycerin 50mg in D5W 50 MG/250 ML BOTTLE IV ONE (07:02)
[2016-10-05] MEDS ORDERED: DiphenhydrAMINE 50 mg/ml Inj ONE (07:13)
[2016-10-05] MEDS ORDERED: Midazolam 2 MG/2 ML VIAL ONE (07:14)
[2016-10-05 07:35] LABS: BASO % 0.8 % (0.0-2.0); EOS % 1.5 % (0.0-4.0); HEMATOCRIT 42.8 % (34.0-47.0); LYMPH # 1.4 K/uL (1.0-4.3); LYMPH % 60.2 % (20.0-40.0); MEAN CORPUSCULAR HEMOGLOBIN 31.7 pg (27.0-31.0); MEAN CORPUSCULAR HGB CONC 33.4 g/dL (33.0-37.0); MEAN PLATELET VOLUME 9.7 fL (7.2-11.7); MONO # 0.3 K/uL (0.0-0.8); MONO % 13.6 % (0.0-10.0); NRBC % 0.4 % (0.0-2.0); WHITE BLOOD COUNT 2.4 K/uL (4.8-10.8)
[2016-10-05 07:36] LABS: CHLORIDE 103 mmol/L (98-107); SODIUM 140 mmol/L (132-148)
[2016-10-05 07:37] LABS: POTASSIUM 3.4 mmol/L (3.6-5.2)
[2016-10-05 07:38] LABS: GFR AFRICAN-AMERICAN > 60
[2016-10-05 07:39] LABS: ALB/GLOB RATIO 1.5 (1.0-2.1); ALKALINE PHOSPHATASE 82 U/L (38-126); ALT/SGPT 22 U/L (9-52); AST/SGOT 24 U/L (14-36); BILIRUBIN,DIRECT 0.4 mg/dL (0.0-0.4); BILIRUBIN,TOTAL 1.4 mg/dL (0.2-1.3); BLOOD UREA NITROGEN 14 mg/dL (7-17); CALCIUM 9.3 mg/dl (8.6-10.4); CARBON DIOXIDE 26 mmol/L (22-30); GLUCOSE,RANDOM 78 mg/dL (65-105); TOTAL PROTEIN 5.8 g/dL (6.3-8.3)
--- NOTE | 2016-10-05 08:03 | HP ---
This is a 65-year-old female. The patient was seen in the emergency room on 10/03/2016 with the family. CHIEF COMPLAINT: Weak and tired. HISTORY OF PRESENT ILLNESS: with spinal tumor came to the emergency room complaining of dull aching cramping pain and abdominal pain and denies nausea, vomiting, or urinary symptoms. The patient's sister in law was sitting on the bedside also. Actually, I was carbon blocks press operator, that is why the patient was admitted under my service because according to ER record, patient's family primary care physician does not come in [facility], which is under my service. I saw the patient, put orders. Later on Dr. Diana Hawkins called me that her private patient and then I have discussion with her and we will transfer this patient to her service. As per patient release note exacerbating or relieving factor, patient's pain was moderate, diffuse, dull, aching, cramping. Denies fever, chills, nausea, vomiting. No hematuria, no hematochezia, no swelling of the leg. PAST MEDICAL HISTORY: The patient has a history of hypertension, Parkinson's disease. ALLERGIES: The patient is not allergic with any medications. HABITS: No smoking, no drug, no ethanol. FAMILY HISTORY: Father and mother noncontributory. HOME MEDICATIONS: Reviewed by me. REVIEW OF SYSTEMS: The patient was seen and examined in the emergency room, looks comfortable, positive for abdominal pain. Negative for nausea, vomiting, fever, chills, headache, dizziness. No hematuria or hematochezia. PHYSICAL EXAMINATION VITAL SIGNS: Temperature 97.3, pulse 105, respiratory rate 20, blood pressure 160/78, pulse oximetry 100%. HEENT: Head is normocephalic and atraumatic. Eyes: PERRLA. Extraocular muscles intact. Conjunctivae clear. Nose patent. Mucous membranes moist. NECK: Supple. No carotid bruit. No JVD or thyromegaly. CHEST: Bilaterally symmetrical. HEART: S1 and S2 positive, regular rate and rhythm. LUNGS: Rales more on the right than the left, no rhonchi, no wheezing. ABDOMEN: Soft, tenderness diffuse. No distention and no rebound. EXTREMITIES: No edema, no cyanosis. NEUROLOGIC: The patient is awake, oriented x3, normal speech, moving all 4 extremities. LABORATORY DATA: White blood cells 3.0, hemoglobin 13.9, hematocrit 42.2, platelets 165. Sodium 142, potassium 3.3, BUN 18, creatinine 0.7, glucose 112, BNP 6430. ASSESSMENT AND PLAN: 65-year-old lady with hypokalemia, increased BUN, looks like dehydrated, hyperglycemia, congestive heart failure, BNP is high, leukopenia, ketonuria, Chest x-ray is done. CAT scan of the abdomen and pelvis done, reviewed by me. The patient has minimal distention of the gallbladder with pericholecystic fluid and adjacent inflammatory changes for which a dedicated ultrasound is suggested. The patient came with abdominal pain, weakness, and history of hypertension, Parkinson's disease, admitted for dyspnea, congestive heart failure. The patient still has history of constipation, Colace given. For abdominal pain, hydromorphone and Dilaudid given, replaced potassium,.Lasix given for congestive heart failure, Pepcid for GI prophylaxis. The patient is getting Sinemet for Parkinson's disease, Repeat labs, GI and DVT prophylaxis, and consult with cardiology, Dr. Joaquin Rebolledo for congestive heart failure. We will followup. Charu Gustafson MD MTDD
[2016-10-05 08:06] LABS: ARTERIAL BLOOD HGB O2 SAT 90.6 % (95.0-98.0); CARBOXYHEMOGLOBIN 2.6 % (0.5-1.5); DRAW SITE CATH LAB; HHB 5.7 % (0.0-5.0); METHEMOGLOBIN 1.2 % (0.0-3.0)
[2016-10-05 08:10] LABS: DRAW SITE P VENOUS; VENOUS BLOOD GAS BASE EXCESS 5.3 mmol/L (0.0-2.0); VENOUS BLOOD GAS PCO2 46 mmHg (40-60); VENOUS BLOOD PH 7.43 (7.32-7.43)
[2016-10-05] MEDS: Enoxaparin 40 mg Syringe SC SCH (10:29)
[2016-10-05] MEDS: Potassium Chloride 20 mEq ER Tab PO SCH (10:42)
[2016-10-05] MEDS: Carbidopa/Levodopa 25/100 CR PO SCH ×4 (10:42→21:58)
--- NOTE | 2016-10-05 11:38 | CP.PCM.PN ---
Subjective - Date & Time of Evaluation Date of Evaluation: 10/05/16 Time of Evaluation: 11:30 - Subjective Subjective: Patint is more alert and oriented today. Apparently she had a cardiac cath done by Dr. Rebolledo this Am. I was not informed about this procedure to be done. And I have cancelled this consultatioin with Dr. Rebolledo yesterday at about 11:45 yesterday. The Nurses apparently told Dr. Rebolledo that he is off the case and he told them that he has seen this patient and that he is going to do the procedure anyway. I have consulted Dr. Colin yesterday and he saw the patient yesterday at 8;[address] Rebolledo to get off the case and the patient's aunt was told this and she agreed with me. Objective - Vital Signs/Intake and Output Vital Signs (last 24 hours): Temp Pulse Resp BP Pulse Ox 97.4 F L 77 20 118/83 96 10/05/16 10:39 10/05/16 10:39 10/05/16 10:39 10/05/16 10:39 10/05/16 09:57 - Medications Medications: Current Medications Carbidopa/Levodopa (Sinemet Cr) 2 tab PO QID [facility] Last Admin: 10/05/16 10:42 Dose: 2 tab Docusate Sodium (Colace) 100 mg PO TID [facility] Last Admin: 10/05/16 10:42 Dose: 100 mg Enoxaparin Sodium (Lovenox) 40 mg SC DAILY [facility] Last Admin: 10/05/16 10:29 Dose: Not Given Entacapone (Comtan) 200 mg PO BID [facility] Last Admin: 10/05/16 10:41 Dose: 200 mg Famotidine (Pepcid) 40 mg PO DAILY [facility] Last Admin: 10/05/16 10:42 Dose: 40 mg Furosemide (Lasix) 40 mg IVP Q24H [facility] Last Admin: 10/04/16 20:27 Dose: 40 mg Hydromorphone HCl (Dilaudid) 0.5 mg IVP Q4H PRN PRN Reason: Pain, Mild (1-3) Lisinopril (Zestril) 5 mg PO DAILY [facility] Last Admin: 10/05/16 10:42 Dose: 5 mg Polyethylene Glycol (Miralax) 17 gm PO HS PRN PRN Reason: Constipation Stop: 10/11/16 22:19 Last Admin: 10/04/16 22:23 Dose: 17 gm Potassium Chloride (K-Dur 20 Meq Er Tab) 20 meq PO DAILY [facility] Last Admin: 10/05/16 10:42 Dose: 20 meq - Labs Labs: 10/05/16 07:09 10/05/16 07:09 PT 14.3 SECONDS (9.7-12.2) H 10/02/16 20:43 INR 1.3 10/02/16 20:43 APTT 30 SECONDS (21-34) 10/02/16 20:43 - Constitutional Appears: No Acute Distress, Chronically Ill - Head Exam Head Exam: ATRAUMATIC, NORMAL INSPECTION, NORMOCEPHALIC - Eye Exam Pupil Exam: NORMAL ACCOMODATION - Neck Exam Neck Exam: Full ROM, Normal Inspection - Respiratory Exam Respiratory Exam: NORMAL BREATHING PATTERN - Cardiovascular Exam Cardiovascular Exam: Tachycardia - GI/Abdominal Exam GI & Abdominal Exam: Soft, Tenderness - Rectal Exam Rectal Exam: Deferred - Back Exam Back Exam: NORMAL INSPECTION - Neurological Exam Neurological Exam: Alert, Awake - Psychiatric Exam Psychiatric exam: Normal Affect - Skin Skin Exam: Dry, Intact, Normal Color Assessment and Plan (1) Abdominal pain Status: Acute (2) CHF (congestive heart failure) Status: Acute (3) Dyspnea Status: Acute - Assessment and Plan (Free Text) Assessment: Assessment: Status acute. 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 Abdominal pains cause to be determined Plan: Paln: For Hida Scan Low dose lasia. K as needed. MRI head
--- NOTE | 2016-10-05 13:34 | CP.PCM.PN ---
Subjective - Date & Time of Evaluation Date of Evaluation: 10/05/16 Time of Evaluation: 13:32 - Subjective Subjective: Paatient feelling better with less pain. Had bowel movement In transit to HIDA scan Objective - Vital Signs/Intake and Output Vital Signs (last 24 hours): Temp Pulse Resp BP Pulse Ox 97.4 F L 77 20 107/72 96 10/05/16 10:39 10/05/16 10:39 10/05/16 10:39 10/05/16 12:44 10/05/16 09:57 - Medications Medications: Current Medications Carbidopa/Levodopa (Sinemet Cr) 2 tab PO QID [facility] Last Admin: 10/05/16 10:42 Dose: 2 tab Docusate Sodium (Colace) 100 mg PO TID [facility] Last Admin: 10/05/16 10:42 Dose: 100 mg Enoxaparin Sodium (Lovenox) 40 mg SC DAILY [facility] Last Admin: 10/05/16 10:29 Dose: Not Given Entacapone (Comtan) 200 mg PO BID [facility] Last Admin: 10/05/16 10:41 Dose: 200 mg Famotidine (Pepcid) 40 mg PO DAILY [facility] Last Admin: 10/05/16 10:42 Dose: 40 mg Furosemide (Lasix) 40 mg IVP DAILY [facility] Last Admin: 10/05/16 12:44 Dose: 40 mg Hydromorphone HCl (Dilaudid) 0.5 mg IVP Q4H PRN PRN Reason: Pain, Mild (1-3) Lisinopril (Zestril) 5 mg PO DAILY [facility] Last Admin: 10/05/16 10:42 Dose: 5 mg Polyethylene Glycol (Miralax) 17 gm PO HS PRN PRN Reason: Constipation Stop: 10/11/16 22:19 Last Admin: 10/04/16 22:23 Dose: 17 gm Potassium Chloride (K-Dur 20 Meq Er Tab) 20 meq PO DAILY [facility] Last Admin: 10/05/16 10:42 Dose: 20 meq - Labs Labs: 10/05/16 07:09 10/05/16 07:09 PT 14.3 SECONDS (9.7-12.2) H 10/02/16 20:43 INR 1.3 10/02/16 20:43 APTT 30 SECONDS (21-34) 10/02/16 20:43 - Constitutional Appears: No Acute Distress - Head Exam Head Exam: ATRAUMATIC, NORMOCEPHALIC - Eye Exam Eye Exam: EOMI, PERRL - Respiratory Exam Respiratory Exam: NORMAL BREATHING PATTERN - Cardiovascular Exam Cardiovascular Exam: REGULAR RHYTHM, +S1 - GI/Abdominal Exam GI & Abdominal Exam: Distended, Soft, Normal Bowel Sounds. absent: Tenderness, Organomegaly - Extremities Exam Extremities Exam: Normal Inspection Assessment and Plan (1) Upper abdominal pain Assessment & Plan: Pain improved. Continue current RX Status: Acute (2) Cholecystitis Assessment & Plan: Awaiting HIDA Scan. No stones or obstruction seen on Sono. GB thickening again noted. Status: Acute (3) H/O lymphoma Status: Chronic (4) Constipation Assessment & Plan: Colace and Miralax ordered Colonoscopy can be done as outpatient if needed. Unclear as to prior examination dates?? Status: Acute
--- NOTE | 2016-10-05 16:31 | NM ---
PROCEDURE: Nuclear Medicine Hepatobiliary Scan HISTORY: probable cholecystitis by CT SCan COMPARISON: None available. TECHNIQUE: 6.1 mCi of technetium 99m Mebrofenin was administered intravenously. Planar images of the abdomen were obtained at 5 min intervals to 60 mins. Delayed images were also obtained. FINDINGS: LIVER: Timely and homogenous uptake. COMMON BILE DUCT: identified at 5-10 mins. GALLBLADDER: identified at 15 mins. SMALL BOWEL: Identified at 45 mins. IMPRESSION: Normal Hepatobiliary Scan. No nuclear evidence of cystic or common duct obstruction.
--- NOTE | 2016-10-05 17:10 | MRI ---
PROCEDURE: MRI BRAIN WITH AND WITHOUT CONTRAST HISTORY: confusion COMPARISON: None. TECHNIQUE: Multiplanar, multisequence MR images of the brain were obtained with and without intravenous contrast enhancement. FINDINGS: HEMORRHAGE: None DWI: No evidence of an acute or early subacute infarction. BRAIN PARENCHYMA: No mass,mass effect or edema. Mild atrophy and chronic microvascular ischemic changes. ENHANCEMENT: No abnormal intracranial enhancement. VENTRICLES: Unremarkable. No hydrocephalus. CRANIUM: Unremarkable. ORBITS: Grossly unremarkable. PARANASAL SINUSES/MASTOIDS: Left mastoiditis is incidentally noted. VASCULAR SYSTEM: Skull base flow voids intact. OTHER FINDINGS: Motion artifacts distort numerous sequences, the FLAIR series in particular.. IMPRESSION: Limited examination due to motion artifacts. And mild age related neuro degenerative changes are identified with no suspicious enhancement following intravenous gadolinium throughout the brain. No intracranial enhancing mass identified.
--- NOTE | 2016-10-05 23:51 | CP.PCM.PN ---
Subjective - Date & Time of Evaluation Date of Evaluation: 10/05/16 Time of Evaluation: 19:30 - Subjective Subjective: Patient has no complaint. R and L heart cath and coronary angio this AM reveals normal coronary arteries, marked global hypokinesia of the LV, elevated RV pressure and Pulmonary wedge pressure, compatible with a non ischemic cardiomyopathy. HIDA is also normal. Abdominal pain has resolved. Objective - Vital Signs/Intake and Output Vital Signs (last 24 hours): Temp Pulse Resp BP Pulse Ox 98.1 F 109 H 20 106/73 96 10/05/16 23:00 10/05/16 23:00 10/05/16 23:00 10/05/16 15:40 10/05/16 23:00 Intake and Output: 10/05/16 10/06/16 18:59 06:59 Intake Total 100 Balance 100 - Medications Medications: Current Medications Carbidopa/Levodopa (Sinemet Cr) 2 tab PO QID [facility] Last Admin: 10/05/16 21:58 Dose: 2 tab Docusate Sodium (Colace) 100 mg PO TID [facility] Last Admin: 10/05/16 17:53 Dose: 100 mg Enoxaparin Sodium (Lovenox) 40 mg SC DAILY [facility] Last Admin: 10/05/16 10:29 Dose: Not Given Entacapone (Comtan) 200 mg PO BID [facility] Last Admin: 10/05/16 17:54 Dose: 200 mg Famotidine (Pepcid) 40 mg PO DAILY [facility] Last Admin: 10/05/16 10:42 Dose: 40 mg Furosemide (Lasix) 40 mg IVP DAILY [facility] Last Admin: 10/05/16 12:44 Dose: 40 mg Hydromorphone HCl (Dilaudid) 0.5 mg IVP Q4H PRN PRN Reason: Pain, Mild (1-3) Lisinopril (Zestril) 5 mg PO DAILY [facility] Last Admin: 10/05/16 10:42 Dose: 5 mg Polyethylene Glycol (Miralax) 17 gm PO HS PRN PRN Reason: Constipation Stop: 10/11/16 22:19 Last Admin: 10/04/16 22:23 Dose: 17 gm Potassium Chloride (K-Dur 20 Meq Er Tab) 20 meq PO DAILY [facility] Last Admin: 10/05/16 10:42 Dose: 20 meq - Labs Labs: 10/05/16 07:09 10/05/16 07:09 PT 14.3 SECONDS (9.7-12.2) H 10/02/16 20:43 INR 1.3 10/02/16 20:43 APTT 30 SECONDS (21-34) 10/02/16 20:43 - Constitutional Appears: No Acute Distress - Head Exam Head Exam: NORMAL INSPECTION - Eye Exam Eye Exam: Normal appearance - ENT Exam ENT Exam: Normal Exam - Neck Exam Neck Exam: Normal Inspection - Respiratory Exam Additional comments: Decreased breathing sounds both bases. - Cardiovascular Exam Cardiovascular Exam: REGULAR RHYTHM, Murmur - GI/Abdominal Exam GI & Abdominal Exam: Soft, Normal Bowel Sounds - Rectal Exam Rectal Exam: Deferred - Extremities Exam Extremities Exam: Normal Inspection Additional comments: Right groin slightly tender, but no hematoma. All peripheral pulses palpable. - Back Exam Back Exam: NORMAL INSPECTION - Neurological Exam Neurological Exam: Alert, Awake, Oriented x3 - Psychiatric Exam Psychiatric exam: Anxious - Skin Skin Exam: Dry, Intact, Normal Color, Warm Assessment and Plan (1) Acute systolic heart failure Assessment & Plan: To continue Metoprolol, Lasix and Lisinopril. Status: Acute (2) Non-ischemic cardiomyopathy Status: Acute (3) History of B-cell lymphoma Status: Acute
[2016-10-06 01:35] LABS: BASO % 0.3 % (0.0-2.0); EOS % 0.3 % (0.0-4.0); HEMATOCRIT 43.6 % (34.0-47.0); LYMPH # 0.5 K/uL (1.0-4.3); LYMPH % 14.6 % (20.0-40.0); MEAN CELL VOLUME 94.6 fL (81.0-99.0); MEAN CORPUSCULAR HEMOGLOBIN 31.1 pg (27.0-31.0); MEAN CORPUSCULAR HGB CONC 32.8 g/dL (33.0-37.0); MEAN PLATELET VOLUME 9.1 fL (7.2-11.7); MONO # 0.4 K/uL (0.0-0.8); NRBC % 0.1 % (0.0-2.0); RED CELL DISTRIBUTION WIDTH 17.7 % (11.5-14.5); WHITE BLOOD COUNT 3.7 K/uL (4.8-10.8)
[2016-10-06 01:51] LABS: VENOUS BLOOD GAS BASE EXCESS 8.5 mmol/L (0.0-2.0); VENOUS BLOOD GAS PCO2 38 mmHg (40-60); VENOUS BLOOD PH 7.53 (7.32-7.43)
[2016-10-06] MEDS ORDERED: Potassium Chloride 20 mEq/15 ml LIQ UD PO ONE (02:15)
[2016-10-06 08:08] LABS: BASO % 0.4 % (0.0-2.0); EOS % 0.4 % (0.0-4.0); HEMATOCRIT 44.6 % (34.0-47.0); LYMPH % 20.7 % (20.0-40.0); MEAN CELL VOLUME 94.7 fL (81.0-99.0); MEAN CORPUSCULAR HEMOGLOBIN 31.7 pg (27.0-31.0); MEAN CORPUSCULAR HGB CONC 33.5 g/dL (33.0-37.0); MEAN PLATELET VOLUME 9.4 fL (7.2-11.7); MONO # 0.5 K/uL (0.0-0.8); MONO % 11.2 % (0.0-10.0); NRBC % 0.1 % (0.0-2.0); RED CELL DISTRIBUTION WIDTH 18.2 % (11.5-14.5); WHITE BLOOD COUNT 4.7 K/uL (4.8-10.8)
--- NOTE | 2016-10-06 08:21 | CP.PCM.PN ---
Subjective - Date & Time of Evaluation Date of Evaluation: 10/06/16 Time of Evaluation: 07:15 - Subjective Subjective: Patient is more lucid today. Becomes tachycardic when she moves around. DR. Rodriguez 's notes noted regardingcardiac cath. results. Normal coronarys with global hypokineses. Abdominal US normal. Hida scan negative. Patient given Miralax to evacuate. Patient feels better. Abdominal pains is getting better. Objective - Vital Signs/Intake and Output Vital Signs (last 24 hours): Temp Pulse Resp BP Pulse Ox 98.5 F 94 H 20 100/68 95 10/06/16 07:30 10/06/16 07:49 10/06/16 07:30 10/06/16 07:49 10/06/16 07:30 Intake and Output: 10/06/16 10/06/16 06:59 18:59 Intake Total 200 Balance 200 - Medications Medications: Current Medications Carbidopa/Levodopa (Sinemet Cr) 2 tab PO QID [facility] Last Admin: 10/05/16 21:58 Dose: 2 tab Docusate Sodium (Colace) 100 mg PO TID [facility] Last Admin: 10/05/16 17:53 Dose: 100 mg Enoxaparin Sodium (Lovenox) 40 mg SC DAILY [facility] Last Admin: 10/05/16 10:29 Dose: Not Given Entacapone (Comtan) 200 mg PO BID [facility] Last Admin: 10/05/16 17:54 Dose: 200 mg Famotidine (Pepcid) 40 mg PO DAILY [facility] Last Admin: 10/05/16 10:42 Dose: 40 mg Furosemide (Lasix) 20 mg IVP BID [facility] Hydromorphone HCl (Dilaudid) 0.5 mg IVP Q4H PRN PRN Reason: Pain, Mild (1-3) Lisinopril (Zestril) 5 mg PO DAILY [facility] Last Admin: 10/05/16 10:42 Dose: 5 mg Polyethylene Glycol (Miralax) 17 gm PO HS PRN PRN Reason: Constipation Stop: 10/11/16 22:19 Last Admin: 10/04/16 22:23 Dose: 17 gm Potassium Chloride (K-Dur 20 Meq Er Tab) 20 meq PO DAILY [facility] Last Admin: 10/05/16 10:42 Dose: 20 meq - Labs Labs: 10/06/16 01:27 10/05/16 07:09 PT 14.3 SECONDS (9.7-12.2) H 10/02/16 20:43 INR 1.3 10/02/16 20:43 APTT 30 SECONDS (21-34) 10/02/16 20:43 - Constitutional Appears: No Acute Distress, Chronically Ill - Head Exam Head Exam: ATRAUMATIC, NORMAL INSPECTION, NORMOCEPHALIC - Eye Exam Pupil Exam: PERRL - ENT Exam ENT Exam: Normal External Ear Exam - Neck Exam Neck Exam: Full ROM - Respiratory Exam Respiratory Exam: Clear to Ausculation Bilateral - Cardiovascular Exam Cardiovascular Exam: Tachycardia, REGULAR RHYTHM, +S1, +S2 - GI/Abdominal Exam GI & Abdominal Exam: Soft, Normal Bowel Sounds - Rectal Exam Rectal Exam: Deferred - Extremities Exam Extremities Exam: Full ROM, Normal Capillary Refill - Back Exam Back Exam: NORMAL INSPECTION - Neurological Exam Neurological Exam: Alert, Awake - Psychiatric Exam Psychiatric exam: Normal Affect - Skin Skin Exam: Dry, Intact, Normal Color, Warm Assessment and Plan (1) Abdominal pain Status: Acute (2) CHF (congestive heart failure) Status: Acute (3) Dyspnea Status: Acute (4) Acute systolic heart failure Status: Acute (5) Constipation Status: Acute - Assessment and Plan (Free Text) Assessment: Assessment: Acute Systolic cardiomyopathy. Hx of Large cells diffuse lymphoma. Constipation Plan: Plan: Continue cardiac monitoring. Continue Lasix, Zestril and Metoprolol. Laxatives.
[2016-10-06 08:30] LABS: ALB/GLOB RATIO 1.4 (1.0-2.1); ALKALINE PHOSPHATASE 88 U/L (38-126); ALT/SGPT 28 U/L (9-52); AST/SGOT 25 U/L (14-36); BILIRUBIN,TOTAL 2.8 mg/dL (0.2-1.3); BLOOD UREA NITROGEN 14 mg/dL (7-17); CALCIUM 9.4 mg/dl (8.6-10.4); CARBON DIOXIDE 28 mmol/L (22-30); CHLORIDE 97 mmol/L (98-107); GFR AFRICAN-AMERICAN > 60; GLUCOSE,RANDOM 87 mg/dL (65-105); POTASSIUM 3.8 mmol/L (3.6-5.2); SODIUM 136 mmol/L (132-148); TOTAL PROTEIN 6.4 g/dL (6.3-8.3)
[2016-10-06] MEDS: Metoprolol Succinate 12.5 mg XL PO SCH (09:47)
[2016-10-06] MEDS: Potassium Chloride 20 mEq ER Tab PO SCH (09:54)
[2016-10-06] MEDS: Carbidopa/Levodopa 25/100 CR PO SCH ×4 (09:54→21:59)
--- NOTE | 2016-10-06 10:43 | CP.PCM.PN ---
Subjective - Date & Time of Evaluation Date of Evaluation: 10/06/16 Time of Evaluation: 10:41 - Subjective Subjective: Covering Dr Anguiano CC: abdominal pain Poor historian. Some lower abdominal discomfort and constipation. Denies dyspnea or chest pain. Total bilirubin up today, normal LFTs otherwise Sono and HIDA are not consistent with cholecystitis. Says she has no BMs. On Miralax. No BMs recorded eother Objective - Vital Signs/Intake and Output Vital Signs (last 24 hours): Temp Pulse Resp BP Pulse Ox 98.5 F 100 H 20 89/49 L 99 10/06/16 07:30 10/06/16 09:45 10/06/16 09:45 10/06/16 09:47 10/06/16 09:45 Intake and Output: 10/06/16 10/06/16 06:59 18:59 Intake Total 200 Balance 200 - Medications Medications: Current Medications Carbidopa/Levodopa (Sinemet Cr) 2 tab PO QID [facility] Last Admin: 10/06/16 09:54 Dose: 2 tab Docusate Sodium (Colace) 100 mg PO TID [facility] Last Admin: 10/06/16 09:55 Dose: 100 mg Enoxaparin Sodium (Lovenox) 40 mg SC DAILY [facility] Last Admin: 10/05/16 10:29 Dose: Not Given Entacapone (Comtan) 200 mg PO BID [facility] Last Admin: 10/06/16 09:55 Dose: 200 mg Famotidine (Pepcid) 40 mg PO DAILY [facility] Last Admin: 10/06/16 09:54 Dose: 40 mg Furosemide (Lasix) 20 mg IVP BID [facility] Last Admin: 10/06/16 09:47 Dose: Not Given Hydromorphone HCl (Dilaudid) 0.5 mg IVP Q4H PRN PRN Reason: Pain, Mild (1-3) Lisinopril (Zestril) 5 mg PO DAILY [facility] Last Admin: 10/06/16 09:47 Dose: Not Given Metoprolol Succinate (Toprol Xl) 12.5 mg PO DAILY [facility] Last Admin: 10/06/16 09:47 Dose: Not Given Polyethylene Glycol (Miralax) 17 gm PO HS PRN PRN Reason: Constipation Stop: 10/11/16 22:19 Last Admin: 10/04/16 22:23 Dose: 17 gm Potassium Chloride (K-Dur 20 Meq Er Tab) 20 meq PO DAILY [facility] Last Admin: 10/06/16 09:54 Dose: 20 meq - Labs Labs: 10/06/16 07:56 10/06/16 07:56 PT 14.3 SECONDS (9.7-12.2) H 10/02/16 20:43 INR 1.3 10/02/16 20:43 APTT 30 SECONDS (21-34) 10/02/16 20:43 - Constitutional Appears: No Acute Distress, Chronically Ill - Head Exam Head Exam: NORMOCEPHALIC - Eye Exam Eye Exam: absent: Scleral icterus - Respiratory Exam Respiratory Exam: Clear to Ausculation Bilateral - GI/Abdominal Exam GI & Abdominal Exam: Soft. absent: Tenderness, Mass, Organomegaly, Rebound Assessment and Plan (1) Hyperbilirubinemia Assessment & Plan: Isolated total birirubin elevation. No evidence of acute liver disease on imaging studies. Patient has cardiac EF 25%, perhaps element of CHF, also blood pressures are running low- to be addressed by Cardiology following patient. Rec: check direct bilirubin and monitor Status: Acute (2) Abdominal pain Assessment & Plan: Lower abdominal pain. Likely related to fecal stasis Status: Acute (3) Constipation Assessment & Plan: On Miralax. No documented BMs. Will order additional laxatives and monitor Status: Acute (4) Non-ischemic cardiomyopathy Assessment & Plan: Managed by Cardiology Status: Acute
[2016-10-06] MEDS: Enoxaparin 40 mg Syringe SC SCH (10:58)
[2016-10-06 11:18] LABS: BILIRUBIN,DIRECT 0.9 mg/dL (0.0-0.4)
--- NOTE | 2016-10-06 13:22 | PCM.RRTMUL ---
CLIENT COORDINATOR Nurses Assessment - Situation CLIENT COORDINATOR Responder Arrival Time:: 12:59 Location:: [address] [place] [address] Room Number:: 656A CLIENT COORDINATOR Called By: RN - IV IV Inserted during CLIENT COORDINATOR?: No - Respiratory Oxygen Delivery Method:: Room Air - Diagnostic Test Ordered EKG:: Yes CPR started during CLIENT COORDINATOR?: No - Vital Signs Blood Pressure:: 92/60 Pulse Rate:: 100 Respiratory Rate:: 20 Temperature:: 98.2 F Oxygen Saturation:: 95 - Armando Coma Scale Coma Scale Eye Opening:: Spontaneous Coma Scale Motor:: Obeys Commands Movement Coma Scale Verbal:: Oriented Coma Scale Total:: 15 - Time CLIENT COORDINATOR Ended Time CLIENT COORDINATOR Ended:: 13:10 - Vital Signs at end of CLIENT COORDINATOR Blood Pressure:: 92/60 Pulse Rate:: 115 O2 Sat by Pulse Oximetry:: 95 - Recommendations 5) CLIENT COORDINATOR Level of Care Recommendations: Remain in current setting 6) Notifications: Family or Designated Caregiver I.Reason for CLIENT COORDINATOR - A) Acute Change in Patient: (Select all that apply): Staff member or family is worried about patient Subjective: Rapid response was called to Room 656A at 12:58PM. Patient was found to have weakness by her TORQUE TESTER after helping her back into her bed from the bathroom. Patient just a bowel movement in the bathroom. Patient was given 10mg of Dulcolax [place] 30 minutes prior due to her constipation. Patient never loss consciousness or had any falls during the event. Patient was placed in Trendelenburg position and the symptoms resolved shortly after. At the beginning of the CLIENT COORDINATOR patient BP was found to 92/60 and ended at 114/76 without any intervention. EKG ordered and review, NSR appreciated. Patient's brother and attending notified. - A) Initial Vital Signs: Blood Pressure: 92/60 Pulse Rate: 115 O2 Sat by Pulse Oximetry: 95 - B) Neurological Status (Select all that apply): Alert, Responsive, Oriented, Verbal, Follows Commands - C) Respiratory Oxygen Delivery Method: Room Air - Constitutional Appears: Well, No Acute Distress - Head Head Exam: ATRAUMATIC, NORMAL INSPECTION - Eyes Eye Exam: Normal appearance - Respiratory Exam Respiratory Exam: NORMAL BREATHING PATTERN. absent: Respiratory Distress - Cardiovascular Exam Cardiovascular Exam: REGULAR RHYTHM, +S1, +S2 - GI/Abdominal Exam GI & Abdominal Exam: Soft, Normal Bowel Sounds. absent: Tenderness - Neurological Exam Neurological Exam: Alert, Awake, Oriented x3 - Extremities Exam Extremities Exam: Normal Capillary Refill, Normal Inspection Plan - A. End of CLIENT COORDINATOR Vital Signs: Blood Pressure: 114/76 Pulse Rate: 86 - B. Assessment of Findings&Treatment Plan Vasovagal episode -Patient was placed in trendelenburg position -Symptoms resolved without medical intervention -EKG review, NSR appreciated -Patient's attending Dr. Hawkins was notified after CLIENT COORDINATOR ended
[2016-10-07 07:45] LABS: ALB/GLOB RATIO 1.4 (1.0-2.1); BILIRUBIN,DIRECT 0.5 mg/dL (0.0-0.4); BILIRUBIN,TOTAL 1.8 mg/dL (0.2-1.3)
--- NOTE | 2016-10-07 08:33 | CP.PCM.PN ---
Subjective - Date & Time of Evaluation Date of Evaluation: 10/07/16 Time of Evaluation: 08:29 - Subjective Subjective: Rapid response was called yesterday afternoon after patient complained of weakness and was found to be hypotensive, BP 92/60. She recovered without specific intervention. This morning, she states that the abdominal discomfort is much improved. She denies having nausea or vomiting. She had a soft bowel movement yesterday after taking Dulcolax. Objective - Vital Signs/Intake and Output Vital Signs (last 24 hours): Temp Pulse Resp BP Pulse Ox 98.2 F 111 H 18 91/58 L 97 10/07/16 00:14 10/07/16 04:26 10/07/16 00:14 10/07/16 00:14 10/07/16 00:14 Intake and Output: 10/07/16 10/07/16 06:59 18:59 Intake Total 440 Balance 440 - Medications Medications: Current Medications Carbidopa/Levodopa (Sinemet Cr) 2 tab PO QID [facility] Last Admin: 10/06/16 21:59 Dose: 2 tab Docusate Sodium (Colace) 100 mg PO TID [facility] Last Admin: 10/06/16 18:32 Dose: 100 mg Enoxaparin Sodium (Lovenox) 40 mg SC DAILY [facility] Last Admin: 10/06/16 10:58 Dose: 40 mg Entacapone (Comtan) 200 mg PO BID [facility] Last Admin: 10/06/16 18:31 Dose: 200 mg Famotidine (Pepcid) 40 mg PO DAILY [facility] Last Admin: 10/06/16 09:54 Dose: 40 mg Furosemide (Lasix) 20 mg IVP BID [facility] Last Admin: 10/06/16 18:33 Dose: Not Given Hydromorphone HCl (Dilaudid) 0.5 mg IVP Q4H PRN PRN Reason: Pain, Mild (1-3) Lisinopril (Zestril) 5 mg PO DAILY [facility] Last Admin: 10/06/16 09:47 Dose: Not Given Metoprolol Succinate (Toprol Xl) 12.5 mg PO DAILY [facility] Last Admin: 10/06/16 09:47 Dose: Not Given Polyethylene Glycol (Miralax) 17 gm PO HS PRN PRN Reason: Constipation Stop: 10/11/16 22:19 Last Admin: 10/04/16 22:23 Dose: 17 gm Potassium Chloride (K-Dur 20 Meq Er Tab) 20 meq PO DAILY [facility] Last Admin: 10/06/16 09:54 Dose: 20 meq - Labs Labs: 10/06/16 07:56 10/06/16 07:56 PT 14.3 SECONDS (9.7-12.2) H 10/02/16 20:43 INR 1.3 10/02/16 20:43 APTT 30 SECONDS (21-34) 10/02/16 20:43 - Constitutional Appears: No Acute Distress - Head Exam Head Exam: ATRAUMATIC, NORMOCEPHALIC - Eye Exam Eye Exam: EOMI, PERRL - Neck Exam Neck Exam: absent: Lymphadenopathy, Thyromegaly - Respiratory Exam Respiratory Exam: NORMAL BREATHING PATTERN. absent: Rales, Rhonchi, Wheezes - Cardiovascular Exam Cardiovascular Exam: REGULAR RHYTHM, +S1, +S2. absent: Gallop, Rubs, Murmur - GI/Abdominal Exam GI & Abdominal Exam: Soft, Normal Bowel Sounds. absent: Tenderness, Mass, Organomegaly - Rectal Exam Rectal Exam: Deferred - Extremities Exam Extremities Exam: absent: Calf Tenderness, Pedal Edema Assessment and Plan (1) Abdominal pain Assessment & Plan: Abdominal pain is improving. Sonogram suggested thickening of the wall of the GB, but HIDA scan showed no cystic duct obstruction. The total bilirubin came down to 1.8 (from 2.8), with direct bilirubin 0.5 (0.9). She had a bowel movement after taking Dulcolax. Recommend repeat LFTs, haptoglobin, BNP. Status: Acute
[2016-10-07] MEDS: Enoxaparin 40 mg Syringe SC SCH (10:55)
[2016-10-07] MEDS: Carbidopa/Levodopa 25/100 CR PO SCH ×4 (10:55→21:39)
[2016-10-07] MEDS: Potassium Chloride 20 mEq ER Tab PO SCH (10:56)
[2016-10-07] MEDS: Metoprolol Succinate 12.5 mg XL PO SCH (11:00)
--- NOTE | 2016-10-07 16:02 | CP.PCM.PN ---
Subjective - Date & Time of Evaluation Date of Evaluation: 10/07/16 Time of Evaluation: 03:50 - Subjective Subjective: Patient is more oriented today. Claims she still has SOB, Abdominal pains is improving. Patient had a soft stool yesterday after taking Dulcolax.Anorexic. Patient had an epoisode of feeling weak and faint yesterday when she was 8in the bathroom. BP was 124 sytolic aaaaaaaaaaaand tachycardic which she had before. Parient felt better after the episode no treatment given. Objective - Vital Signs/Intake and Output Vital Signs (last 24 hours): Temp Pulse Resp BP Pulse Ox 98.2 F 88 20 90/55 L 99 10/07/16 08:00 10/07/16 08:00 10/07/16 08:00 10/07/16 10:50 10/07/16 08:00 Intake and Output: 10/07/16 10/07/16 06:59 18:59 Intake Total 440 Balance 440 - Medications Medications: Current Medications Carbidopa/Levodopa (Sinemet Cr) 2 tab PO QID [facility] Last Admin: 10/07/16 14:29 Dose: 2 tab Docusate Sodium (Colace) 100 mg PO TID [facility] Last Admin: 10/07/16 14:29 Dose: 100 mg Enoxaparin Sodium (Lovenox) 40 mg SC DAILY [facility] Last Admin: 10/07/16 10:55 Dose: 40 mg Entacapone (Comtan) 200 mg PO BID [facility] Last Admin: 10/07/16 10:55 Dose: 200 mg Famotidine (Pepcid) 40 mg PO DAILY [facility] Last Admin: 10/07/16 10:56 Dose: 40 mg Furosemide (Lasix) 20 mg IVP BID [facility] Last Admin: 10/07/16 11:00 Dose: Not Given Lisinopril (Zestril) 5 mg PO DAILY [facility] Last Admin: 10/07/16 11:00 Dose: Not Given Metoprolol Succinate (Toprol Xl) 12.5 mg PO DAILY [facility] Last Admin: 10/07/16 11:00 Dose: Not Given Polyethylene Glycol (Miralax) 17 gm PO HS PRN PRN Reason: Constipation Stop: 10/11/16 22:19 Last Admin: 10/04/16 22:23 Dose: 17 gm Potassium Chloride (K-Dur 20 Meq Er Tab) 20 meq PO DAILY [facility] Last Admin: 10/07/16 10:56 Dose: 20 meq - Labs Labs: 10/06/16 07:56 10/06/16 07:56 PT 14.3 SECONDS (9.7-12.2) H 10/02/16 20:43 INR 1.3 10/02/16 20:43 APTT 30 SECONDS (21-34) 10/02/16 20:43 - Constitutional Appears: No Acute Distress, Chronically Ill - Head Exam Head Exam: ATRAUMATIC, NORMAL INSPECTION, NORMOCEPHALIC - Eye Exam Eye Exam: Scleral icterus Pupil Exam: PERRL - Neck Exam Neck Exam: Full ROM, Normal Inspection - Respiratory Exam Respiratory Exam: Clear to Ausculation Bilateral, NORMAL BREATHING PATTERN - Cardiovascular Exam Cardiovascular Exam: Tachycardia, +S1, +S2 - GI/Abdominal Exam GI & Abdominal Exam: Soft, Normal Bowel Sounds - Rectal Exam Rectal Exam: Deferred - Extremities Exam Extremities Exam: Full ROM, Normal Inspection - Back Exam Back Exam: Full ROM, NORMAL INSPECTION - Neurological Exam Neurological Exam: Awake, Oriented x3, Reflexes Normal - Psychiatric Exam Psychiatric exam: Normal Affect - Skin Skin Exam: Dry, Intact, Normal Color, Warm Assessment and Plan (1) Abdominal pain Status: Acute (2) CHF (congestive heart failure) Status: Acute (3) Dyspnea Status: Acute (4) Acute systolic heart failure Status: Acute (5) Constipation Status: Acute - Assessment and Plan (Free Text) Assessment: Assssment: Status--Acute. Acute systolic cardiomyopathy. Diffuse large B Cell Lympoma in remission. Abdominal pains? constipation Hypokalemia. Plan: Plan: Continue cardiac monitoring. K supplement,PO. Lasix, Metoprolol, Lisinopril when her BP is 100 systolic and above. Laxatives.
[2016-10-08] MEDS: POLYETHYLENE GLYCOL 3350 17 GM/Dose PACKET PO PRN (00:40)
--- NOTE | 2016-10-08 07:20 | CARDCATH ---
PROCEDURE DATE: 10/05/2016 INDICATIONS: Ms. Fam Walker is a 65-year-old female with the history of lymphoma status post R-CHOP chemotherapy presenting with symptoms or shortness of breath and abdominal discomfort. The patient was found to be in acute decompensated heart failure, new onset CHF, ejection fraction of 20% to 25% echocardiogram. Therefore, she was brought to the lab rn for evaluation of new onset cardiomyopathy. PROCEDURES PERFORMED: Complete heart catheterization via 6-[place] right femoral and 7-[place] right femoral venous access. TECHNIQUE PROCEDURE: After obtaining informed consent, the patient was brought to the cardiac lab in post-absorptive non-sedated state. The patient was prepped and draped in the usual sterile fashion. A 2% lidocaine was used for infiltration anesthesia. Using a modified Seldinger technique, a 6-[place] sheath was introduced into the right femoral artery and a 7-[place] sheath was introduced into the right femoral vein. Subsequently over a J-wire, 6-[place] JL-4 and JR-4 diagnostic catheters and a pigtail catheter were advanced across the aortic valve into the LV. Selective coronary artery angiograms of the left and right coronary systems were obtained in different orthogonal views and an LV gram was obtained in the LOMAX view. After obtaining the diagnostic coronary angiogram, attention was paid to the right heart cath balloon inflated, [place]-Sha catheter was serially advanced under fluoroscopic guidance through the IVC into the RA, RV, PA and wedge position. Serial saturations along with hemodynamics were obtained. Right heart cath findings: Right atrial pressures 38/34/32 with a mean right atrial pressure of 32, RV pressure 64/23/32 with RV EDP of 32. Pulmonary arterial pressures; 69/49/58, mean pulmonary arterial pressure of 58. Pulmonary capillary wedge pressures 50/47/44. Left heart findings: Left coronary system showed left main artery bifurcating into the left anterior descending and left circumflex coronary artery. The left main is a large size vessel which bifurcates into a large sized left anterior descending and a circumflex artery. The left anterior descending artery gives off one large sized diagonal branch and three small diagonals after that. LAD had mild luminal irregularities, the diagonal mild luminal irregularities. The last medium sized diagonal had ostial 55% stenosis. The left circumflex gives off a large OM and two small sized OM's, mild luminal irregularities noted. Right coronary artery bifurcates into the right PDA and PLV branches, which has mild luminal irregularities. IMPRESSION: 1)Nonobstructive coronary artery disease. 2) Left ventricularejection fraction 20 to 25% consistent with nonischemic cardiomyopathy. 3) Severely elevated filling pressures. 4) Severe pulmonary hypertension. RECOMMENDATIONS: The patient is to be titrated for acute decompensated heart failure. We will initiate the patient on IV Milrinone and IV Lasix therapy and add RAAS modulators for preload and afterload optimization. Thank you Dr. Diana Hawkins for letting me participate in the care of patient. Joaquin Rebolledo MD MTDD
[2016-10-08 07:33] LABS: CHLORIDE 94 mmol/L (98-107)
[2016-10-08 07:34] LABS: SODIUM 131 mmol/L (132-148)
[2016-10-08 07:36] LABS: ALB/GLOB RATIO 1.3 (1.0-2.1); AST/SGOT 20 U/L (14-36); BILIRUBIN,DIRECT 0.5 mg/dL (0.0-0.4); BILIRUBIN,TOTAL 1.3 mg/dL (0.2-1.3); BLOOD UREA NITROGEN 16 mg/dL (7-17); CARBON DIOXIDE 30 mmol/L (22-30); GFR AFRICAN-AMERICAN > 60; TOTAL PROTEIN 6.1 g/dL (6.3-8.3)
[2016-10-08 07:37] LABS: ALKALINE PHOSPHATASE 80 U/L (38-126); ALT/SGPT 22 U/L (9-52); CALCIUM 9.1 mg/dl (8.6-10.4); GLUCOSE,RANDOM 93 mg/dL (65-105)
[2016-10-08 08:23] LABS: T4 6.43 ug/dL (5.5-11.0)
--- NOTE | 2016-10-08 08:26 | CP.PCM.PN ---
Subjective - Date & Time of Evaluation Date of Evaluation: 10/08/16 Time of Evaluation: 08:24 - Subjective Subjective: Pain is better after bowel movement Still claims to be SOB appears comfortable Objective - Vital Signs/Intake and Output Vital Signs (last 24 hours): Temp Pulse Resp BP Pulse Ox 98.3 F 83 20 90/59 L 98 10/07/16 23:10 10/08/16 04:45 10/07/16 23:10 10/07/16 23:10 10/07/16 23:10 Intake and Output: 10/08/16 10/08/16 06:59 18:59 Intake Total 560 Balance 560 - Medications Medications: Current Medications Carbidopa/Levodopa (Sinemet Cr) 2 tab PO QID [facility] Last Admin: 10/07/16 21:39 Dose: 2 tab Docusate Sodium (Colace) 100 mg PO TID [facility] Last Admin: 10/07/16 18:07 Dose: 100 mg Enoxaparin Sodium (Lovenox) 40 mg SC DAILY [facility] Last Admin: 10/07/16 10:55 Dose: 40 mg Entacapone (Comtan) 200 mg PO BID [facility] Last Admin: 10/07/16 18:07 Dose: 200 mg Famotidine (Pepcid) 40 mg PO DAILY [facility] Last Admin: 10/07/16 10:56 Dose: 40 mg Furosemide (Lasix) 20 mg IVP BID [facility] Last Admin: 10/07/16 18:08 Dose: Not Given Lisinopril (Zestril) 5 mg PO DAILY [facility] Last Admin: 10/07/16 11:00 Dose: Not Given Metoprolol Succinate (Toprol Xl) 12.5 mg PO DAILY [facility] Last Admin: 10/07/16 11:00 Dose: Not Given Polyethylene Glycol (Miralax) 17 gm PO HS PRN PRN Reason: Constipation Stop: 10/11/16 22:19 Last Admin: 10/08/16 00:40 Dose: 17 gm Potassium Chloride (K-Dur 20 Meq Er Tab) 20 meq PO DAILY [facility] Last Admin: 10/07/16 10:56 Dose: 20 meq - Labs Labs: 10/06/16 07:56 10/08/16 07:18 PT 14.3 SECONDS (9.7-12.2) H 10/02/16 20:43 INR 1.3 10/02/16 20:43 APTT 30 SECONDS (21-34) 10/02/16 20:43 - Constitutional Appears: No Acute Distress - Head Exam Head Exam: ATRAUMATIC, NORMOCEPHALIC - Respiratory Exam Respiratory Exam: Decreased Breath Sounds, NORMAL BREATHING PATTERN - Cardiovascular Exam Cardiovascular Exam: REGULAR RHYTHM, +S1 - GI/Abdominal Exam GI & Abdominal Exam: Soft, Normal Bowel Sounds. absent: Distended, Tenderness, Mass, Rebound - Rectal Exam Rectal Exam: Deferred - Extremities Exam Extremities Exam: Normal Inspection Assessment and Plan (1) Upper abdominal pain Assessment & Plan: Likely related to constipation Still not stable from CHF standpoint as BNP elevated and reports SOB Defer any endoscopic work up at this time. Would benefit from colonoscopy, if not done recently, to assess the pain and constipation. This can be done as outpatient if needed. Status: Acute (2) Cholecystitis Status: Ruled-out (3) H/O lymphoma Status: Chronic (4) Constipation Assessment & Plan: Better with Dulcolax Continue Colace and Miralax hs prn. Status: Acute (5) Abnormal bilirubin test Assessment & Plan: Bilirubin improving. Possibly due to hepatic congestion due to CHF. LFTs normal today. Status: Acute
[2016-10-08 08:34] LABS: THYROID STIMULATING HORMONE 6.61 mIU/L (0.46-4.68)
[2016-10-08] MEDS ORDERED: Aluminum Hydroxide/Magnesium Hydroxide Susp (30 mL) PO ONE (09:49)
[2016-10-08] MEDS ORDERED: Potassium Chloride 20 mEq ER Tab PO STA (10:38)
[2016-10-08] MEDS: Carbidopa/Levodopa 25/100 CR PO SCH ×4 (10:57→21:32)
[2016-10-08] MEDS: Enoxaparin 40 mg Syringe SC SCH (10:58)
[2016-10-08] MEDS: Metoprolol Succinate 12.5 mg XL PO SCH (10:58)
[2016-10-08] MEDS: Potassium Chloride 20 mEq ER Tab PO SCH (15:00)
--- NOTE | 2016-10-08 20:40 | CP.PCM.PN ---
Subjective - Date & Time of Evaluation Date of Evaluation: 10/08/16 Time of Evaluation: 08:35 - Subjective Subjective: Pain at abdomen subsiding. Pateient claims she feels better when she has a BM. Dr. Anguiano notes appreciated. Lasix and metoprolo can not be given due to BP of below 100 systolic. She becomes very tachycardic when she moves. Objective - Vital Signs/Intake and Output Vital Signs (last 24 hours): Temp Pulse Resp BP Pulse Ox 98.2 F 112 H 20 90/63 L 100 10/08/16 15:00 10/08/16 15:00 10/08/16 15:00 10/08/16 17:59 10/08/16 15:00 Intake and Output: 10/08/16 10/09/16 18:59 06:59 Intake Total 400 Balance 400 - Medications Medications: Current Medications Carbidopa/Levodopa (Sinemet Cr) 2 tab PO QID [facility] Last Admin: 10/08/16 18:18 Dose: 2 tab Docusate Sodium (Colace) 100 mg PO TID [facility] Last Admin: 10/08/16 17:58 Dose: 100 mg Enoxaparin Sodium (Lovenox) 40 mg SC DAILY [facility] Last Admin: 10/08/16 10:58 Dose: 40 mg Entacapone (Comtan) 200 mg PO BID [facility] Last Admin: 10/08/16 17:58 Dose: 200 mg Famotidine (Pepcid) 40 mg PO DAILY [facility] Last Admin: 10/08/16 10:57 Dose: 40 mg Furosemide (Lasix) 20 mg IVP BID [facility] Last Admin: 10/08/16 17:59 Dose: Not Given Lisinopril (Zestril) 5 mg PO DAILY [facility] Last Admin: 10/08/16 13:00 Dose: Not Given Metoprolol Succinate (Toprol Xl) 12.5 mg PO DAILY [facility] Last Admin: 10/08/16 10:58 Dose: 12.5 mg Polyethylene Glycol (Miralax) 17 gm PO HS PRN PRN Reason: Constipation Stop: 10/11/16 22:19 Last Admin: 10/08/16 00:40 Dose: 17 gm Potassium Chloride (K-Dur 20 Meq Er Tab) 20 meq PO DAILY [facility] Last Admin: 10/08/16 15:00 Dose: 20 meq - Labs Labs: 10/06/16 07:56 10/08/16 07:18 PT 14.3 SECONDS (9.7-12.2) H 10/02/16 20:43 INR 1.3 10/02/16 20:43 APTT 30 SECONDS (21-34) 10/02/16 20:43 - Constitutional Appears: Chronically Ill - Head Exam Head Exam: ATRAUMATIC, NORMAL INSPECTION, NORMOCEPHALIC - Eye Exam Pupil Exam: NORMAL ACCOMODATION, PERRL - ENT Exam ENT Exam: Mucous Membranes Moist - Neck Exam Neck Exam: Tenderness - Respiratory Exam Respiratory Exam: Clear to Ausculation Bilateral - Cardiovascular Exam Cardiovascular Exam: Tachycardia, +S1, +S2 - GI/Abdominal Exam GI & Abdominal Exam: Soft - Rectal Exam Rectal Exam: Deferred - Extremities Exam Extremities Exam: Full ROM, Normal Inspection - Back Exam Back Exam: Full ROM, NORMAL INSPECTION - Neurological Exam Neurological Exam: Alert, Awake, Oriented x3 - Skin Skin Exam: Dry, Intact, Normal Color, Warm Assessment and Plan (1) Abdominal pain Status: Acute (2) CHF (congestive heart failure) Status: Acute (3) Dyspnea Status: Acute (4) Acute systolic heart failure Status: Acute (5) Constipation Status: Acute - Assessment and Plan (Free Text) Assessment: Assessment: Status-Acute 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 Acute systolic cardiomyopathy. Acute comgestive heart . Plan: Plan: Continue cardiac monitoring. Lasix, metoprolo,l and Zestril when BP is 100 and above.
[2016-10-09 07:11] LABS: CHLORIDE 96 mmol/L (98-107); POTASSIUM 3.5 mmol/L (3.6-5.2); SODIUM 135 mmol/L (132-148)
[2016-10-09 07:13] LABS: AST/SGOT 23 U/L (14-36); CARBON DIOXIDE 31 mmol/L (22-30); GFR AFRICAN-AMERICAN > 60
[2016-10-09 07:14] LABS: ALB/GLOB RATIO 1.3 (1.0-2.1); ALKALINE PHOSPHATASE 84 U/L (38-126); ALT/SGPT 19 U/L (9-52); BLOOD UREA NITROGEN 17 mg/dL (7-17); CALCIUM 9.4 mg/dl (8.6-10.4); GLUCOSE,RANDOM 96 mg/dL (65-105); TOTAL PROTEIN 6.2 g/dL (6.3-8.3)
--- NOTE | 2016-10-09 10:29 | CP.PCM.PN ---
Subjective - Date & Time of Evaluation Date of Evaluation: 10/09/16 Time of Evaluation: 10:26 - Subjective Subjective: Feeling better after bowel movements No pain complaints today, tolerating breakfast tray Objective - Vital Signs/Intake and Output Vital Signs (last 24 hours): Temp Pulse Resp BP Pulse Ox 98.1 F 101 H 20 99/64 L 96 10/09/16 08:12 10/09/16 08:12 10/09/16 08:12 10/09/16 08:12 10/09/16 08:12 - Medications Medications: Current Medications Carbidopa/Levodopa (Sinemet Cr) 2 tab PO QID [facility] Last Admin: 10/08/16 21:32 Dose: 2 tab Docusate Sodium (Colace) 100 mg PO TID [facility] Last Admin: 10/08/16 17:58 Dose: 100 mg Enoxaparin Sodium (Lovenox) 40 mg SC DAILY [facility] Last Admin: 10/08/16 10:58 Dose: 40 mg Entacapone (Comtan) 200 mg PO BID [facility] Last Admin: 10/08/16 17:58 Dose: 200 mg Famotidine (Pepcid) 40 mg PO DAILY [facility] Last Admin: 10/08/16 10:57 Dose: 40 mg Furosemide (Lasix) 20 mg IVP BID [facility] Last Admin: 10/08/16 17:59 Dose: Not Given Lisinopril (Zestril) 5 mg PO DAILY [facility] Last Admin: 10/08/16 13:00 Dose: Not Given Metoprolol Succinate (Toprol Xl) 12.5 mg PO DAILY [facility] Last Admin: 10/08/16 10:58 Dose: 12.5 mg Polyethylene Glycol (Miralax) 17 gm PO HS PRN PRN Reason: Constipation Stop: 10/11/16 22:19 Last Admin: 10/08/16 00:40 Dose: 17 gm Potassium Chloride (K-Dur 20 Meq Er Tab) 20 meq PO DAILY [facility] Last Admin: 10/08/16 15:00 Dose: 20 meq - Labs Labs: 10/06/16 07:56 10/09/16 06:07 PT 14.3 SECONDS (9.7-12.2) H 10/02/16 20:43 INR 1.3 10/02/16 20:43 APTT 30 SECONDS (21-34) 08/08/17 20:43 - Head Exam Head Exam: NORMAL INSPECTION - Eye Exam Eye Exam: EOMI, PERRL - Respiratory Exam Respiratory Exam: NORMAL BREATHING PATTERN - Cardiovascular Exam Cardiovascular Exam: REGULAR RHYTHM - GI/Abdominal Exam GI & Abdominal Exam: Soft, Normal Bowel Sounds. absent: Distended, Guarding, Tenderness, Mass, Rebound Assessment and Plan (1) Upper abdominal pain Assessment & Plan: Clinically improved Continue PPI Status: Acute (2) Cholecystitis Status: Ruled-out (3) H/O lymphoma Status: Chronic (4) Constipation Assessment & Plan: Continue Colace plus Miralax hs as needed Consider outpatient colonoscopy when medically stable and CHF controlled ( patient unaware if one has been done recently) Will discuss with Dr Hawkins Will follow as needed Thank you. Status: Acute (5) Abnormal bilirubin test Status: Resolved
[2016-10-09] MEDS: Carbidopa/Levodopa 25/100 CR PO SCH ×4 (10:45→21:31)
[2016-10-09] MEDS: Enoxaparin 40 mg Syringe SC SCH (10:45)
[2016-10-09] MEDS: Metoprolol Succinate 12.5 mg XL PO SCH (10:45)
[2016-10-09] MEDS: Potassium Chloride 20 mEq ER Tab PO SCH (10:45)
--- NOTE | 2016-10-09 11:30 | RAD ---
HISTORY: CHF COMPARISON: 10/02/2016 TECHNIQUE: Chest PA and lateral FINDINGS: LUNGS: The prior right basal infiltrate/atelectasis and pleural effusion has cleared with right basal improved aeration now present. No residual underlying pathology here appreciated. Elsewhere, lungs are clear. PLEURA: No significant pleural effusion identified. No pneumothorax apparent. CARDIOVASCULAR: Cardiomegaly-as before. No pulmonary vascular congestion suggested. Right Port-A-Cath inserted tip superior vena cava - right atrial junction as before. OSSEOUS STRUCTURES: Thoracic spondylosis VISUALIZED UPPER ABDOMEN: Normal. OTHER FINDINGS: None. IMPRESSION: Interval clearance of the prior right basal pathology. No residual or interval pathology suggested
--- NOTE | 2016-10-09 15:11 | CP.PCM.PN ---
Subjective - Date & Time of Evaluation Date of Evaluation: 10/09/16 Time of Evaluation: 15:08 - Subjective Subjective: Patient less SOB. BP: 99/60 HR: 106 Na+: 135 K+:3.5 Creatinine 0.7 BUN: 17 TSH: 6.6 CXR: clear lungs. Will reduce Lasix: 20 mg IV qd and add Spironolactone 25 mg PO qd. Objective - Vital Signs/Intake and Output Vital Signs (last 24 hours): Temp Pulse Resp BP Pulse Ox 98.1 F 101 H 20 99/71 L 96 10/09/16 08:12 10/09/16 08:12 10/09/16 08:12 10/09/16 11:25 10/09/16 08:12 - Medications Medications: Current Medications Carbidopa/Levodopa (Sinemet Cr) 2 tab PO QID [facility] Last Admin: 10/09/16 14:55 Dose: 2 tab Docusate Sodium (Colace) 100 mg PO TID [facility] Last Admin: 10/09/16 14:55 Dose: 100 mg Enoxaparin Sodium (Lovenox) 40 mg SC DAILY [facility] Last Admin: 10/09/16 10:45 Dose: 40 mg Entacapone (Comtan) 200 mg PO BID [facility] Last Admin: 10/09/16 10:45 Dose: 200 mg Famotidine (Pepcid) 20 mg PO DAILY [facility] Furosemide (Lasix) 20 mg IVP Q12 [facility] Lisinopril (Zestril) 5 mg PO DAILY [facility] Last Admin: 10/09/16 10:45 Dose: Not Given Metoprolol Succinate (Toprol Xl) 12.5 mg PO DAILY [facility] Last Admin: 10/09/16 10:45 Dose: Not Given Polyethylene Glycol (Miralax) 17 gm PO HS PRN PRN Reason: Constipation Stop: 10/11/16 22:19 Last Admin: 10/08/16 00:40 Dose: 17 gm Potassium Chloride (K-Dur 20 Meq Er Tab) 20 meq PO DAILY [facility] Last Admin: 10/09/16 10:45 Dose: 20 meq - Labs Labs: 10/06/16 07:56 10/09/16 06:07 PT 14.3 SECONDS (9.7-12.2) H 10/02/16 20:43 INR 1.3 10/02/16 20:43 APTT 30 SECONDS (21-34) 10/02/16 20:43 - Constitutional Appears: Well, Chronically Ill - Head Exam Head Exam: NORMAL INSPECTION - Eye Exam Eye Exam: Normal appearance Pupil Exam: NORMAL ACCOMODATION - ENT Exam ENT Exam: Normal Exam - Neck Exam Neck Exam: Normal Inspection - Respiratory Exam Additional comments: Few crackles heard at both bases. - Cardiovascular Exam Cardiovascular Exam: REGULAR RHYTHM - GI/Abdominal Exam GI & Abdominal Exam: Soft, Normal Bowel Sounds - Extremities Exam Extremities Exam: Normal Inspection - Back Exam Back Exam: NORMAL INSPECTION - Neurological Exam Neurological Exam: Alert, Awake, Oriented x3 - Skin Skin Exam: Dry, Intact, Normal Color, Warm Assessment and Plan (1) Acute systolic heart failure Assessment & Plan: Much improved. To reduce Lasix to 20 mg IV qd and add Spironolactone 25 mg PO qd Status: Acute (2) Non-ischemic cardiomyopathy Assessment & Plan: Rx as above. To reassess LV function in 3 months with Echocardiogram before deciding for an ICD. Status: Acute (3) History of B-cell lymphoma Assessment & Plan: As per Oncologist. Status: Acute
--- NOTE | 2016-10-09 18:18 | CP.PCM.PN ---
Subjective - Date & Time of Evaluation Date of Evaluation: 10/09/16 Time of Evaluation: 06:15 - Subjective Subjective: Lessr SOB. Still tachycardic specialy when she moves . Chest x-ray pleural effusion has resolved. Metropolol, and lisinopril could not be given at this time for her BP is below 100. Spironolactone was added and lasix reduced to 20 mgm. daily. Objective - Vital Signs/Intake and Output Vital Signs (last 24 hours): Temp Pulse Resp BP Pulse Ox 97.8 F 107 H 20 98/62 L 96 10/09/16 15:00 10/09/16 15:00 10/09/16 15:00 10/09/16 15:00 10/09/16 15:00 - Medications Medications: Current Medications Carbidopa/Levodopa (Sinemet Cr) 2 tab PO QID [facility] Last Admin: 10/09/16 14:55 Dose: 2 tab Docusate Sodium (Colace) 100 mg PO TID [facility] Last Admin: 10/09/16 14:55 Dose: 100 mg Enoxaparin Sodium (Lovenox) 40 mg SC DAILY [facility] Last Admin: 10/09/16 10:45 Dose: 40 mg Entacapone (Comtan) 200 mg PO BID [facility] Last Admin: 10/09/16 10:45 Dose: 200 mg Famotidine (Pepcid) 20 mg PO DAILY [facility] Furosemide (Lasix) 20 mg IVP DAILY [facility] Lisinopril (Zestril) 5 mg PO DAILY [facility] Last Admin: 10/09/16 10:45 Dose: Not Given Metoprolol Succinate (Toprol Xl) 12.5 mg PO DAILY [facility] Last Admin: 10/09/16 10:45 Dose: Not Given Polyethylene Glycol (Miralax) 17 gm PO HS PRN PRN Reason: Constipation Stop: 10/11/16 22:19 Last Admin: 10/08/16 00:40 Dose: 17 gm Potassium Chloride (K-Dur 20 Meq Er Tab) 20 meq PO DAILY [facility] Last Admin: 10/09/16 10:45 Dose: 20 meq Spironolactone (Aldactone) 25 mg PO DAILY [facility] - Labs Labs: 10/06/16 07:56 10/09/16 06:07 PT 14.3 SECONDS (9.7-12.2) H 10/02/16 20:43 INR 1.3 10/02/16 20:43 APTT 30 SECONDS (21-34) 10/02/16 20:43 - Constitutional Appears: No Acute Distress, Chronically Ill - Head Exam Head Exam: ATRAUMATIC, NORMAL INSPECTION, NORMOCEPHALIC - Eye Exam Pupil Exam: PERRL - ENT Exam ENT Exam: Mucous Membranes Moist, Normal External Ear Exam - Neck Exam Neck Exam: Full ROM, Normal Inspection - Respiratory Exam Respiratory Exam: Clear to Ausculation Bilateral - Cardiovascular Exam Cardiovascular Exam: Tachycardia - GI/Abdominal Exam GI & Abdominal Exam: Soft, Normal Bowel Sounds - Rectal Exam Rectal Exam: Deferred - Extremities Exam Extremities Exam: Full ROM, Normal Inspection - Back Exam Back Exam: Full ROM, NORMAL INSPECTION - Neurological Exam Neurological Exam: Alert, Awake - Skin Skin Exam: Intact, Normal Color Assessment and Plan (1) Abdominal pain Status: Acute (2) CHF (congestive heart failure) Status: Acute (3) Dyspnea Status: Acute (4) Acute systolic heart failure Status: Acute (5) Constipation Status: Acute - Assessment and Plan (Free Text) Assessment: Assessment: Status-acute Acute cardiomyopathy Hx of diffuse large cell lymphoma. Constipation Plan: Plan: Continue cardiac monitoring . PT evaluation for subacute rehab. Continue aldactone and lasix
[2016-10-10 07:37] LABS: CHLORIDE 101 mmol/L (98-107)
[2016-10-10 07:38] LABS: POTASSIUM 3.3 mmol/L (3.6-5.2); SODIUM 135 mmol/L (132-148)
[2016-10-10 07:40] LABS: GFR AFRICAN-AMERICAN > 60
[2016-10-10 07:41] LABS: BLOOD UREA NITROGEN 16 mg/dL (7-17); CALCIUM 9.7 mg/dl (8.6-10.4); CARBON DIOXIDE 25 mmol/L (22-30); GLUCOSE,RANDOM 98 mg/dL (65-105)
[2016-10-10 08:10] LABS: FREE T4 1.26 ng/dL (0.78-2.19)
[2016-10-10 08:24] LABS: THYROID STIMULATING HORMONE 7.24 mIU/L (0.46-4.68)
--- NOTE | 2016-10-10 11:04 | CP.PCM.PN ---
Subjective - Date & Time of Evaluation Date of Evaluation: 10/10/16 Time of Evaluation: 11:00 - Subjective Subjective: Afebrile. Lesser SOB. Patient' s BP 104 systolic this AM. Still tachycardic at 100. No pedal edema. Objective - Vital Signs/Intake and Output Vital Signs (last 24 hours): Temp Pulse Resp BP Pulse Ox 98.2 F 100 H 20 105/66 97 10/10/16 07:00 10/10/16 07:00 10/10/16 07:00 10/10/16 07:00 10/10/16 07:00 Intake and Output: 10/10/16 10/10/16 06:59 18:59 Intake Total 400 Output Total 300 Balance 100 - Medications Medications: Current Medications Carbidopa/Levodopa (Sinemet Cr) 2 tab PO QID [facility] Last Admin: 10/09/16 21:31 Dose: 2 tab Docusate Sodium (Colace) 100 mg PO TID [facility] Last Admin: 10/09/16 18:22 Dose: 100 mg Enoxaparin Sodium (Lovenox) 40 mg SC DAILY [facility] Last Admin: 10/09/16 10:45 Dose: 40 mg Entacapone (Comtan) 200 mg PO BID [facility] Last Admin: 10/09/16 18:23 Dose: 200 mg Famotidine (Pepcid) 20 mg PO DAILY [facility] Furosemide (Lasix) 20 mg IVP DAILY [facility] Lisinopril (Zestril) 5 mg PO DAILY [facility] Last Admin: 10/09/16 10:45 Dose: Not Given Metoprolol Succinate (Toprol Xl) 12.5 mg PO DAILY [facility] Last Admin: 10/09/16 10:45 Dose: Not Given Polyethylene Glycol (Miralax) 17 gm PO PRN PRN Reason: Constipation Stop: 10/11/16 22:19 Last Admin: 10/08/16 00:40 Dose: 17 gm Potassium Chloride (K-Dur 20 Meq Er Tab) 20 meq PO DAILY [facility] Last Admin: 10/09/16 10:45 Dose: 20 meq Spironolactone (Aldactone) 25 mg PO DAILY [facility] - Labs Labs: 10/06/16 07:56 10/10/16 07:00 PT 14.3 SECONDS (9.7-12.2) H 10/02/16 20:43 INR 1.3 10/02/16 20:43 APTT 30 SECONDS (21-34) 10/02/16 20:43 - Constitutional Appears: No Acute Distress, Chronically Ill - Head Exam Head Exam: ATRAUMATIC, NORMAL INSPECTION, NORMOCEPHALIC - Eye Exam Pupil Exam: PERRL - ENT Exam ENT Exam: Normal Exam - Neck Exam Neck Exam: Full ROM, Normal Inspection - Respiratory Exam Respiratory Exam: Clear to Ausculation Bilateral - Cardiovascular Exam Cardiovascular Exam: Tachycardia, REGULAR RHYTHM, +S1, +S2 - GI/Abdominal Exam GI & Abdominal Exam: Soft, Normal Bowel Sounds - Rectal Exam Rectal Exam: Deferred - Extremities Exam Extremities Exam: Normal Inspection - Back Exam Back Exam: Full ROM, NORMAL INSPECTION - Neurological Exam Neurological Exam: Alert, Awake, Oriented x3 - Psychiatric Exam Psychiatric exam: Flat Affect - Skin Skin Exam: Dry, Intact, Normal Color, Warm Assessment and Plan (1) Abdominal pain Status: Resolved (2) CHF (congestive heart failure) Status: Acute (3) Dyspnea Status: Acute (4) Acute systolic heart failure Status: Acute (5) Constipation Status: Chronic - Assessment and Plan (Free Text) Assessment: Status-Acute Assessment: Acute systolic non ischemic congestive cardiomyopathy Diffuse Large Cell Lymphoma underwent R Chop therapy in remission. Abdominal pains resolved. Plan: Plan Continue Spironolactone, Lasix Physial therapy. Possible tranfer to Subacute Rehab.
[2016-10-10] MEDS: Carbidopa/Levodopa 25/100 CR PO SCH ×4 (11:09→22:00)
[2016-10-10] MEDS: Enoxaparin 40 mg Syringe SC SCH (11:10)
[2016-10-10] MEDS: Potassium Chloride 20 mEq ER Tab PO SCH (11:11)
[2016-10-10] MEDS: Metoprolol Succinate 12.5 mg XL PO SCH (11:14)
[2016-10-10] MEDS ORDERED: Potassium Chloride 20 mEq ER Tab PO STA (18:25)
--- NOTE | 2016-10-10 19:16 | CP.PCM.PN ---
Subjective - Date & Time of Evaluation Date of Evaluation: 10/10/16 Time of Evaluation: 19:13 - Subjective Subjective: Patient has no SOB, but is slightly hypotensive, tachycardic, with a poor appetite. All her cardiac meds on hold because of the low BP. K+: 3.3 TSH: 7.7. Will replace K= and start on Levothyroxine 25 mcg PO qd. May go to subacute rehab. Objective - Vital Signs/Intake and Output Vital Signs (last 24 hours): Temp Pulse Resp BP Pulse Ox 97.9 F 123 H 22 91/59 L 98 10/10/16 17:01 10/10/16 17:01 10/10/16 17:01 10/10/16 17:01 10/10/16 17:01 - Medications Medications: Current Medications Carbidopa/Levodopa (Sinemet Cr) 2 tab PO QID [facility] Last Admin: 10/10/16 18:28 Dose: 2 tab Docusate Sodium (Colace) 100 mg PO TID [facility] Last Admin: 10/10/16 18:28 Dose: 100 mg Enoxaparin Sodium (Lovenox) 40 mg SC DAILY [facility] Last Admin: 10/10/16 11:10 Dose: 40 mg Entacapone (Comtan) 200 mg PO BID [facility] Last Admin: 10/10/16 18:29 Dose: 200 mg Famotidine (Pepcid) 20 mg PO DAILY [facility] Last Admin: 10/10/16 11:10 Dose: 20 mg Furosemide (Lasix) 20 mg IVP DAILY [facility] Last Admin: 10/10/16 11:13 Dose: Not Given Levothyroxine Sodium (Synthroid) 25 mcg PO DAILY@0630 [facility] Lisinopril (Zestril) 5 mg PO DAILY [facility] Last Admin: 10/10/16 11:12 Dose: Not Given Metoprolol Succinate (Toprol Xl) 12.5 mg PO DAILY [facility] Last Admin: 10/10/16 11:14 Dose: Not Given Polyethylene Glycol (Miralax) 17 gm PO HS PRN PRN Reason: Constipation Stop: 10/11/16 22:19 Last Admin: 10/08/16 00:40 Dose: 17 gm Potassium Chloride (K-Dur 20 Meq Er Tab) 20 meq PO DAILY [facility] Last Admin: 10/10/16 11:11 Dose: 20 meq Spironolactone (Aldactone) 25 mg PO DAILY [facility] Last Admin: 10/10/16 11:09 Dose: 25 mg - Labs Labs: 10/06/16 07:56 10/10/16 07:00 PT 14.3 SECONDS (9.7-12.2) H 10/02/16 20:43 INR 1.3 10/02/16 20:43 APTT 30 SECONDS (21-34) 10/02/16 20:43 - Constitutional Appears: No Acute Distress, Chronically Ill - Head Exam Head Exam: NORMAL INSPECTION - Eye Exam Eye Exam: Normal appearance - ENT Exam ENT Exam: Normal Exam - Neck Exam Neck Exam: Normal Inspection - Respiratory Exam Respiratory Exam: Clear to Ausculation Bilateral - Cardiovascular Exam Cardiovascular Exam: REGULAR RHYTHM - GI/Abdominal Exam GI & Abdominal Exam: Soft, Normal Bowel Sounds - Extremities Exam Extremities Exam: Normal Inspection - Back Exam Back Exam: NORMAL INSPECTION - Neurological Exam Neurological Exam: Alert, Awake, Oriented x3 - Psychiatric Exam Psychiatric exam: Anxious - Skin Skin Exam: Dry, Intact, Normal Color Assessment and Plan (1) Acute systolic heart failure Assessment & Plan: Much improved. To continue same meds. Status: Acute (2) Non-ischemic cardiomyopathy Assessment & Plan: To continue same meds. Status: Acute (3) History of B-cell lymphoma Assessment & Plan: As per her Oncologist. Status: Acute
[2016-10-11 01:51] VITALS: RESP 20
[2016-10-11] MEDS: Levothyroxine 25 MCG TAB PO SCH (05:39)
[2016-10-11 07:46] LABS: BASO % 0.4 % (0.0-2.0); EOS % 1.2 % (0.0-4.0); HEMATOCRIT 41.6 % (34.0-47.0); LYMPH % 33.9 % (20.0-40.0); MEAN CELL VOLUME 94.1 fL (81.0-99.0); MEAN CORPUSCULAR HEMOGLOBIN 31.2 pg (27.0-31.0); MEAN CORPUSCULAR HGB CONC 33.2 g/dL (33.0-37.0); MONO # 0.6 K/uL (0.0-0.8); NRBC % 0.1 % (0.0-2.0); RED CELL DISTRIBUTION WIDTH 17.1 % (11.5-14.5)
--- NOTE | 2016-10-11 10:47 | CP.PCM.PN ---
Subjective - Date & Time of Evaluation Date of Evaluation: 10/11/16 Time of Evaluation: 10:45 - Subjective Subjective: Lesser SOB. Patient is more comfortable. Still with slight tachycardia. K is 3.2 yesterday despite patient on aldactone and k suplement. Objective - Vital Signs/Intake and Output Vital Signs (last 24 hours): Temp Pulse Resp BP Pulse Ox 97.6 F 95 H 20 91/58 L 99 10/11/16 07:00 10/11/16 07:55 10/11/16 07:00 10/11/16 07:00 10/11/16 07:00 Intake and Output: 10/11/16 10/11/16 06:59 18:59 Intake Total 240 Output Total 200 Balance 40 - Medications Medications: Current Medications Carbidopa/Levodopa (Sinemet Cr) 2 tab PO QID [facility] Last Admin: 10/10/16 22:00 Dose: 2 tab Docusate Sodium (Colace) 100 mg PO TID [facility] Last Admin: 10/10/16 18:28 Dose: 100 mg Enoxaparin Sodium (Lovenox) 40 mg SC DAILY [facility] Last Admin: 10/10/16 11:10 Dose: 40 mg Entacapone (Comtan) 200 mg PO BID [facility] Last Admin: 10/10/16 18:29 Dose: 200 mg Famotidine (Pepcid) 20 mg PO DAILY [facility] Last Admin: 10/10/16 11:10 Dose: 20 mg Furosemide (Lasix) 20 mg IVP DAILY [facility] Last Admin: 10/10/16 11:13 Dose: Not Given Levothyroxine Sodium (Synthroid) 25 mcg PO DAILY@0630 [facility] Last Admin: 10/11/16 05:39 Dose: 25 mcg Lisinopril (Zestril) 5 mg PO DAILY [facility] Last Admin: 10/10/16 11:12 Dose: Not Given Metoprolol Succinate (Toprol Xl) 12.5 mg PO DAILY [facility] Last Admin: 10/10/16 11:14 Dose: Not Given Polyethylene Glycol (Miralax) 17 gm PO HS PRN PRN Reason: Constipation Stop: 10/11/16 22:19 Last Admin: 10/08/16 00:40 Dose: 17 gm Potassium Chloride (K-Dur 20 Meq Er Tab) 20 meq PO DAILY [facility] Last Admin: 10/10/16 11:11 Dose: 20 meq Spironolactone (Aldactone) 25 mg PO DAILY [facility] Last Admin: 10/10/16 11:09 Dose: 25 mg - Labs Labs: 10/11/16 07:18 10/10/16 07:00 PT 14.3 SECONDS (9.7-12.2) H 10/02/16 20:43 INR 1.3 10/02/16 20:43 APTT 30 SECONDS (21-34) 10/02/16 20:43 - Constitutional Appears: No Acute Distress, Chronically Ill - Head Exam Head Exam: ATRAUMATIC, NORMAL INSPECTION, NORMOCEPHALIC - Eye Exam Pupil Exam: PERRL - ENT Exam ENT Exam: Normal External Ear Exam - Neck Exam Neck Exam: Full ROM - Respiratory Exam Respiratory Exam: Clear to Ausculation Bilateral, NORMAL BREATHING PATTERN - Cardiovascular Exam Cardiovascular Exam: Tachycardia, REGULAR RHYTHM - GI/Abdominal Exam GI & Abdominal Exam: Soft - Rectal Exam Rectal Exam: Deferred - Back Exam Back Exam: Full ROM, NORMAL INSPECTION - Neurological Exam Neurological Exam: Alert, Awake, Oriented x3 - Psychiatric Exam Psychiatric exam: Flat Affect - Skin Skin Exam: Dry, Intact, Normal Color, Warm Assessment and Plan (1) Abdominal pain Status: Resolved (2) CHF (congestive heart failure) Status: Acute (3) Dyspnea Status: Acute (4) Acute systolic heart failure Status: Acute (5) Constipation Status: Resolved - Assessment and Plan (Free Text) Assessment: Status-Acute Assessment: Acute systolic non ischemic cardiomyopathy. Diffuse large ce3ll lymphoma in remission. Abdominal pains resolved Hypokalemia. Plan: Plan: For discaharge in AM if approved by the Ins. Co. to the Subacute Facility. To continue Lasix, Aldactone, To continue Lisinopril and metoprolol if BP is 100 sys and above. Physical therapy.
[2016-10-11] MEDS: Enoxaparin 40 mg Syringe SC SCH (10:56)
[2016-10-11] MEDS: Carbidopa/Levodopa 25/100 CR PO SCH ×4 (11:10→22:16)
[2016-10-11] MEDS: Potassium Chloride 20 mEq ER Tab PO SCH (11:10)
[2016-10-11 13:13] LABS: CHLORIDE 101 mmol/L (98-107); POTASSIUM 3.3 mmol/L (3.6-5.2); SODIUM 135 mmol/L (132-148)
[2016-10-11 13:16] LABS: BLOOD UREA NITROGEN 17 mg/dL (7-17); CALCIUM 9.5 mg/dl (8.6-10.4); CARBON DIOXIDE 26 mmol/L (22-30); GFR AFRICAN-AMERICAN > 60; GLUCOSE,RANDOM 104 mg/dL (65-105)
[2016-10-12] MEDS: Levothyroxine 25 MCG TAB PO SCH (05:30)
[2016-10-12 08:25] VITALS: BP 94/65; PULSE 100; TEMP 98; O2SAT 99
[2016-10-12] MEDS: Potassium Chloride 20 mEq ER Tab PO SCH (09:12)
[2016-10-12] MEDS: Metoprolol Succinate 12.5 mg XL PO SCH (09:15)
[2016-10-12] MEDS: Carbidopa/Levodopa 25/100 CR PO SCH ×2 (09:15→13:51)
--- NOTE | 2016-10-12 11:11 | CP.PCM.PN ---
Subjective - Date & Time of Evaluation Date of Evaluation: 10/12/16 Time of Evaluation: 11:10 - Subjective Subjective: Lesser4 SOB. More comfortable today. Still tachycardic on exertion. BP still in the 90's. For discharge to subacute Facility this AM. Objective - Vital Signs/Intake and Output Vital Signs (last 24 hours): Temp Pulse Resp BP Pulse Ox 98.0 F 100 H 20 94/65 L 99 10/12/16 07:00 10/12/16 07:00 10/12/16 07:00 10/12/16 07:00 10/12/16 07:00 Intake and Output: 10/12/16 10/12/16 06:59 18:59 Intake Total 340 Balance 340 - Medications Medications: Current Medications Carbidopa/Levodopa (Sinemet Cr) 2 tab PO QID [facility] Last Admin: 10/12/16 09:15 Dose: 2 tab Docusate Sodium (Colace) 100 mg PO TID [facility] Last Admin: 10/12/16 09:12 Dose: 100 mg Entacapone (Comtan) 200 mg PO BID [facility] Last Admin: 10/12/16 09:14 Dose: 200 mg Famotidine (Pepcid) 20 mg PO DAILY [facility] Last Admin: 10/12/16 09:12 Dose: 20 mg Furosemide (Lasix) 20 mg IVP DAILY [facility] Last Admin: 10/12/16 09:15 Dose: Not Given Levothyroxine Sodium (Synthroid) 25 mcg PO DAILY@0630 [facility] Last Admin: 10/12/16 05:30 Dose: 25 mcg Lisinopril (Zestril) 5 mg PO DAILY [facility] Last Admin: 10/12/16 09:15 Dose: Not Given Metoprolol Succinate (Toprol Xl) 12.5 mg PO DAILY [facility] Last Admin: 10/12/16 09:15 Dose: Not Given Potassium Chloride (K-Dur 20 Meq Er Tab) 20 meq PO DAILY [facility] Last Admin: 10/12/16 09:12 Dose: 20 meq Spironolactone (Aldactone) 25 mg PO DAILY [facility] Last Admin: 10/12/16 09:15 Dose: Not Given - Labs Labs: 10/11/16 07:18 10/11/16 10:55 PT 14.3 SECONDS (9.7-12.2) H 10/02/16 20:43 INR 1.3 10/02/16 20:43 APTT 30 SECONDS (21-34) 10/02/16 20:43 - Constitutional Appears: No Acute Distress, Chronically Ill - Head Exam Head Exam: ATRAUMATIC, NORMAL INSPECTION, NORMOCEPHALIC - Eye Exam Pupil Exam: PERRL - ENT Exam ENT Exam: Mucous Membranes Moist - Neck Exam Neck Exam: Full ROM, Normal Inspection - Respiratory Exam Respiratory Exam: Clear to Ausculation Bilateral - Cardiovascular Exam Cardiovascular Exam: Tachycardia, +S1, +S2 - GI/Abdominal Exam GI & Abdominal Exam: Soft, Normal Bowel Sounds - Rectal Exam Rectal Exam: Deferred - Extremities Exam Extremities Exam: Full ROM - Back Exam Back Exam: Full ROM - Neurological Exam Neurological Exam: Alert, Awake, Oriented x3 - Psychiatric Exam Psychiatric exam: Flat Affect - Skin Skin Exam: Dry, Intact, Normal Color, Warm Assessment and Plan (1) Abdominal pain Status: Resolved (2) CHF (congestive heart failure) Status: Acute (3) Dyspnea Status: Acute (4) Acute systolic heart failure Status: Acute (5) Constipation Status: Resolved - Assessment and Plan (Free Text) Assessment: Status--Improved. Assessment: Acute systolic non ischemic cardiomyopathy. Acute congestive heart failure. Hx. of Diffuse Large Cell Lymphoma in remission. S/P R Chop therapy. Hypokalemia [id number] debility. Plan: Plan: Discharge to Subacute Rehabilitation today.
--- NOTE | 2016-10-12 11:54 | CP.PCM.DIS ---
Provider - Provider Date of Admission: 10/03/16 01:04 Attending physician: Diana Hawkins MD Time Spent in preparation of Discharge (in minutes): 60 Diagnosis - Discharge Diagnosis (1) Abdominal pain Status: Resolved (2) CHF (congestive heart failure) Status: Acute (3) Dyspnea Status: Acute (4) Acute systolic heart failure Status: Acute (5) Constipation Status: Resolved Hospital Course - Lab Results Lab Results: Most Recent Lab Values WBC 3.0 K/uL (4.8-10.8) L 10/11/16 07:18 RBC 4.43 Mil/uL (3.80-5.20) 10/11/16 07:18 Hgb 13.8 g/dL (11.0-16.0) 10/11/16 07:18 Hct 41.6 % (34.0-47.0) 10/11/16 07:18 MCV 94.1 fL (81.0-99.0) 10/11/16 07:18 MCH 31.2 pg (27.0-31.0) H 10/11/16 07:18 MCHC 33.2 g/dL (33.0-37.0) 10/11/16 07:18 RDW 17.1 % (11.5-14.5) H 10/11/16 07:18 Plt Count 193 K/uL (130-400) 10/11/16 07:18 MPV 9.0 fL (7.2-11.7) 10/11/16 07:18 Neut % (Auto) 45.5 % (50.0-75.0) L 10/11/16 07:18 Lymph % (Auto) 33.9 % (20.0-40.0) 10/11/16 07:18 [place] % (Auto) 19.0 % (0.0-10.0) H 10/11/16 07:18 Eos % (Auto) 1.2 % (0.0-4.0) 10/11/16 07:18 Baso % (Auto) 0.4 % (0.0-2.0) 10/11/16 07:18 Neut # 1.4 K/uL (1.8-7.0) L 10/11/16 07:18 Lymph # 1.0 K/uL (1.0-4.3) 10/11/16 07:18 [place] # 0.6 K/uL (0.0-0.8) 10/11/16 07:18 Eos # 0.0 K/uL (0.0-0.7) 10/11/16 07:18 Baso # 0.0 K/uL (0.0-0.2) 10/11/16 07:18 Haptoglobin 82 mg/dL (43-212) 10/08/16 07:18 PT 14.3 SECONDS (9.7-12.2) H 10/02/16 20:43 INR 1.3 10/02/16 20:43 APTT 30 SECONDS (21-34) 10/02/16 20:43 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 10/05/16 08:03 pCO2 49 mm/Hg (35-45) H 10/05/16 08:03 pO2 56 mm/Hg (30-55) H 10/06/16 01:46 HCO3 28.9 mmol/L (21-28) H 10/05/16 08:03 ABG pH 7.41 (7.35-7.45) 10/05/16 08:03 ABG Total CO2 32.6 mmol/L (22-28) H 10/05/16 08:03 ABG O2 Saturation 94.1 % (95-98) L 10/05/16 08:03 ABG Base Excess 5.3 mmol/L (-2.0-3.0) H 10/05/16 08:03 ABG Hemoglobin 13.8 g/dL (11.7-17.4) 10/05/16 08:03 ABG Carboxyhemoglobin 2.6 % (0.5-1.5) H 10/05/16 08:03 POC ABG HHb (Measured) 5.7 % (0.0-5.0) H 10/05/16 08:03 ABG Methemoglobin 1.2 % (0.0-3.0) 10/05/16 08:03 [place] Test Na 10/05/16 08:03 VBG pH 7.53 (7.32-7.43) H 10/06/16 01:46 VBG pCO2 38 mmHg (40-60) L 10/06/16 01:46 VBG HCO3 31.4 mmol/L 10/06/16 01:46 VBG Total CO2 33.0 mmol/L (22-28) H 10/06/16 01:46 VBG O2 Sat (Calc) 91.4 % (40-65) H 10/06/16 01:46 VBG Base Excess 8.5 mmol/L (0.0-2.0) H 10/06/16 01:46 VBG Potassium 2.8 mmol/L (3.6-5.2) L 10/06/16 01:46 Hgb O2 Saturation 90.6 % (95.0-98.0) L 10/05/16 08:03 Sodium 136.0 mmol/l (132-148) 10/06/16 01:46 Chloride 100.0 mmol/L (98-107) 10/06/16 01:46 Glucose 100 mg/dl (65-105) 10/06/16 01:46 Lactate 1.1 mmol/L (0.7-2.1) 10/06/16 01:46 Sodium 135 mmol/L (132-148) 10/11/16 10:55 Potassium 3.3 mmol/L (3.6-5.2) L 10/11/16 10:55 Chloride 101 mmol/L (98-107) 10/11/16 10:55 Carbon Dioxide 26 mmol/L (22-30) 10/11/16 10:55 Anion Gap 12 (10-20) 10/11/16 10:55 BUN 17 mg/dL (7-17) 10/11/16 10:55 Creatinine 0.5 MG/DL (0.7-1.2) L 10/11/16 10:55 Est GFR ( Amer) > 60 10/11/16 10:55 Est GFR (Non-Af Amer) > 60 10/11/16 10:55 POC Glucose (mg/dL) 106 mg/dL (65-110) 10/06/16 13:02 Random Glucose 104 mg/dL (65-105) 10/11/16 10:55 Calcium 9.5 mg/dl (8.6-10.4) 10/11/16 10:55 Magnesium 2.0 mg/dL (1.6-2.3) 10/05/16 07:09 Total Bilirubin 1.0 mg/dL (0.2-1.3) 10/09/16 06:07 Direct Bilirubin 0.5 mg/dL (0.0-0.4) H 10/08/16 07:18 AST 23 U/L (14-36) 10/09/16 06:07 ALT 19 U/L (9-52) 10/09/16 06:07 Alkaline Phosphatase 84 U/L (38-126) 10/09/16 06:07 Total Creatine Kinase 51 U/L (30-135) 10/03/16 22:45 CK-MB (Mass) 0.72 ng/mL (0.0-3.38) 10/03/16 22:45 Troponin I 0.0610 ng/mL (0.00-0.120) 10/03/16 00:35 Troponin I, Quant 0.0730 ng/mL (0.00-0.120) 10/03/16 22:45 NT-Pro-B Natriuret Pep 3140 pg/mL (0-900) H 10/08/16 07:18 Total Protein 6.2 g/dL (6.3-8.3) L 10/09/16 06:07 Albumin 3.5 g/dL (3.5-5.0) 10/09/16 06:07 Globulin 2.7 gm/dL (2.2-3.9) 10/09/16 06:07 Albumin/Globulin Ratio 1.3 (1.0-2.1) 10/09/16 06:07 Amylase 45 U/L (30-110) 10/04/16 10:59 Lipase 64 U/L (23-300) 10/04/16 10:59 Free T4 1.26 ng/dL (0.78-2.19) 10/10/16 07:00 Thyroxine (T4) 6.43 ug/dL (5.5-11.0) 10/08/16 07:18 TSH 3rd Generation 7.24 mIU/L (0.46-4.68) H 10/10/16 07:00 Venous Blood Potassium 2.8 mmol/L (3.6-5.2) L 10/06/16 01:46 Urine Color [place] (YELLOW) 10/02/16 23:09 Urine Clarity Hazy (Clear) 10/02/16 23:09 Urine pH 5.0 (5.0-8.0) 10/02/16 23:09 Ur Specific [place] 1.036 (1.003-1.030) H 10/02/16 23:09 Urine Protein 1+ mg/dL (NEGATIVE) H 10/02/16 23:09 Urine Glucose (UA) Normal mg/dL (Normal) 10/02/16 23:09 Urine Ketones 1+ mg/dL (NEGATIVE) H 10/02/16 23:09 Urine Blood Negative (NEGATIVE) 10/02/16 23:09 Urine Nitrate Negative (NEGATIVE) 10/02/16 23:09 Urine Bilirubin 1+ (NEGATIVE) H 10/02/16 23:09 Urine Urobilinogen Normal mg/dL (0.2-1.0) 10/02/16 23:09 Ur Leukocyte Esterase Neg Martine/uL (Negative) 10/02/16 23:09 Urine WBC (Auto) 3 /hpf (0-5) 10/02/16 23:09 Urine RBC (Auto) 1 /hpf (0-3) 10/02/16 23:09 Ur Squamous Epith Cells 100 /hpf (0-5) H 10/02/16 23:09 Urine Bacteria Occ (<OCC) H 10/02/16 23:09 - Hospital Course Hospital Course: Patient5 was ademitted via the ER because of abdominal pains and SOB. Patient [facility] she was tachaycardic for a few months prior to admission and she was sdvised by another MD to be admitted for a work-up which she did not do. 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 In the ER an abdominal CAT scan was done which showed a perichole inflamatory like picture. She was also constipated. Patient was in congestive heart failure and an Echo done showed an EF 25to35. Cardiac cath was done which was normal. Her abdominal pains subsided when she was given laxatives. Iniatiall her chest x-ray on admission showed a right sided pleural effusion which subsided on discharge. Patient's BP was always on the low side of below 100 thereby Lsix and metoprolol could not be given. Patient is very weak she could hardly hardly amubulate so she has to go to a subacute facility for rehab. On discharge patient's SOB still persist especially on exertion and ambulation. Still with tachycardia . All of these sypmtoms will persist for as long as her EF is this low, but we can not push the medications because of a very low BP. Will continue the Spirinolactone and metropolol and lisnopril if her BP is 100 systolic and above. An ICD will be considered when patient is more stable. - Date & Time of H&P Date of H&P: 10/12/16 Time of H&P: 11:20 Discharge Exam - Head Exam Head Exam: ATRAUMATIC, NORMAL INSPECTION, NORMOCEPHALIC - Eye Exam Pupil Exam: PERRL - Neck Exam Neck exam: Full Rom, Normal Inspection - Respiratory Exam Respiratory Exam: Clear to PA & Lateral - Cardiovascular Exam Cardiovascular Exam: Tachycardia, REGULAR RHYTHM, +S1, +S2 - GI/Abdominal Exam GI & Abdominal Exam: Normal Bowel Sounds, Soft - Rectal Exam Rectal Exam: Deferred - Back Exam Back exam: FULL ROM - Neurological Exam Neurological exam: Alert, Oriented x3, Reflexes Normal - Psychiatric Exam Psychiatric exam: Flat Affect - Skin Skin Exam: Dry, Intact, Normal Color, Warm Discharge Plan - Discharge Medications Prescriptions: Furosemide [Lasix] 20 mg PO DAILY #100 tab Levothyroxine Sodium 50 mcg PO AC #100 tablet Metoprolol Succinate XL [Toprol XL] 12.5 mg PO BRK #100 tab Lisinopril [Zestril] 2.5 mg PO DAILY #100 tablet - Follow Up Plan Condition: FAIR
--- NOTE | 2016-10-12 17:15 | PCM.HF ---
Heart Failure Core Measure - Heart Failure Ejection Fraction: Less Than 40 % JOSIANE Inhibitor Prescribed: Yes Beta-Angel Prescribed: Metoprolol Succinate Angiotensin II Receptor Angel Prescribed: No Contraindication/Reason for not providing: ON JOSIANE AnticoagulationTherapy for Atrial Fibrillation/Atrialflutter: No Contraindication/Reason for not providing: NO AFIB Aldosterone Antagonist Prescribed: No Contraindication/Reason for not providing: HYPOTENSION; WILL HAVE ICD PLACED ONCE MORE STABLE OUTPATIENT Hydralazine Nitrate Prescribed: No Contraindication/Reason for not providing: HYPOTENSION; WILL HAVE ICD PLACED ONCE MORE STABLE OUTPATIENT Implantable Cardioverter Defibrillator Therapy: No Contraindication/Reason for not providing: WILL HAVE ICD PLACED ONCE MORE STABLE OUTPATIENT Cardiac Resynchronization Therapy Prescribed: No Contraindication/Reason for not providing: WILL HAVE ICD PLACED ONCE MORE STABLE OUTPATIENT - Follow up Will be discharged to: [facility] ([facility]) Follow Up Date (must be within 7 days from discharge): 10/15/16 Follow Up Time: 09:00
--- NOTE | 2016-10-16 20:28 | CARD ---
APPROVED REPORT EKG Measurement Heart [id number] 134P35 [id number] <Conclusion> Normal sinus rhythm T wave abnormality, consider lateral ischemia Abnormal ECG
--- NOTE | 2016-10-17 14:32 | CARD ---
APPROVED REPORT EKG Measurement Heart [id number] 156P51 [id number] <Conclusion> Sinus tachycardia Cannot rule out Anterior infarct, age undetermined Abnormal ECG
--- NOTE | 2016-10-17 14:33 | CARD ---
APPROVED REPORT EKG Measurement Heart [id number] <Conclusion> Sinus tachycardia Low voltage QRS Septal infarct, age undetermined Abnormal ECG
--- NOTE | 2016-10-18 12:57 | CARD ---
APPROVED REPORT EKG Measurement Heart [id number] 164P50 [id number] <Conclusion> Sinus tachycardia Nonspecific T wave abnormality Abnormal ECG
== END 2016-10-12 14:36 | DRG 287 ==
LOC: C.ER 19:10 → C.9E 10-03 01:04 → C.6T 10-03 10:09
PROVIDERS: ADMIT Legal Medicine; ATTEND Legal Medicine
PROC: 4A023N8 Measurement of Cardiac Sampling and Pressure, Bilateral, Percutaneous Approach (ICD-10-PCS; principal; 2016-10-05)
PROC: B2151ZZ Fluoroscopy of Left Heart using Low Osmolar Contrast (ICD-10-PCS; 2016-10-05)
PROC: B2111ZZ Fluoroscopy of Multiple Coronary Arteries using Low Osmolar Contrast (ICD-10-PCS; 2016-10-05)
DX: I11.0 Hypertensive heart disease with heart failure (principal); I47.2 Ventricular tachycardia; I95.9 Hypotension, unspecified; G20 Parkinson's disease; C83.39 Diffuse large B-cell lymphoma, extranodal and solid organ sites; I42.0 Dilated cardiomyopathy; I27.2 Other secondary pulmonary hypertension; E86.0 Dehydration; K81.9 Cholecystitis, unspecified; I50.23 Acute on chronic systolic (congestive) heart failure; I25.10 Atherosclerotic heart disease of native coronary artery without angina pectoris; E87.6 Hypokalemia; D72.819 Decreased white blood cell count, unspecified; K59.00 Constipation, unspecified; Z85.6 Personal history of leukemia; Z82.0 Family history of epilepsy and other diseases of the nervous system; Z82.5 Family history of asthma and other chronic lower respiratory diseases; Z82.49 Family history of ischemic heart disease and other diseases of the circulatory system; Z83.3 Family history of diabetes mellitus; R73.9 Hyperglycemia, unspecified; Z92.21 Personal history of antineoplastic chemotherapy

== ENCOUNTER 2016-12-11 12:21 | Inpatient (IN) | payer MEDICARE, BC ==
[2016-12-11 12:22] VITALS: BMI 28.3
[2016-12-11 13:30] LABS: VENOUS BLOOD GAS BASE EXCESS -3.1 mmol/L (0.0-2.0); VENOUS BLOOD GAS PCO2 39 mmHg (40-60); VENOUS BLOOD PH 7.36 (7.32-7.43)
[2016-12-11] MEDS ORDERED: Cefepime 1 GM in Sodium Chloride 0.9% 50 ML IVPB ONE (13:39)
[2016-12-11 13:41] LABS: LYMPH # 0.4 K/uL (1.0-4.3); MONO # 0.8 K/uL (0.0-0.8)
--- NOTE | 2016-12-11 13:42 | RAD ---
HISTORY: Confusion. Technique: Single view portable semi erect @ 13:25. COMPARISON: 10/09/2016. FINDINGS: LUNGS: No active pulmonary disease. PLEURA: No significant pleural effusion identified, no pneumothorax apparent. CARDIOVASCULAR: Cardiomegaly. No evidence of acute, significant cardiovascular disease. Venous access catheter in stable, satisfactory position. OSSEOUS STRUCTURES: No significant abnormalities. VISUALIZED UPPER ABDOMEN: Normal. OTHER FINDINGS: None. IMPRESSION: No active disease. No significant interval change compared to the prior examination(s). Please note: No preliminary report/ innterpretation of this examination provided by emergency department personnel.
[2016-12-11 13:45] LABS: BASO % 0.2 % (0.0-2.0); EOS % 0.2 % (0.0-4.0); HEMATOCRIT 36.7 % (34.0-47.0); MEAN CELL VOLUME 93.1 fL (81.0-99.0); MEAN CORPUSCULAR HEMOGLOBIN 31.2 pg (27.0-31.0); MEAN CORPUSCULAR HGB CONC 33.5 g/dL (33.0-37.0); MEAN PLATELET VOLUME 10.2 fL (7.2-11.7); MONO % 8.3 % (0.0-10.0); PLATELET COUNT 119 K/uL (130-400); RED CELL DISTRIBUTION WIDTH 19.7 % (11.5-14.5); WHITE BLOOD COUNT 9.1 K/uL (4.8-10.8)
[2016-12-11 13:47] LABS: POTASSIUM 4.8 mmol/L (3.6-5.2)
[2016-12-11 13:49] LABS: BILIRUBIN,TOTAL 4.1 mg/dL (0.2-1.3); INR 1.5
[2016-12-11 13:50] LABS: ALB/GLOB RATIO 1.1 (1.0-2.1); CALCIUM 8.8 mg/dl (8.6-10.4); TOTAL PROTEIN 6.6 g/dL (6.3-8.3)
[2016-12-11 13:50] LABS: RBC URINE 76 /hpf (0-3); URINE BACTERIA FEW (<OCC); URINE BILIRUBIN NEGATIVE (NEGATIVE); URINE BLOOD 3+ (NEGATIVE); URINE COLOR Amber (YELLOW); URINE GLUCOSE (UA) NORMAL (Normal); URINE KETONE NEGATIVE (NEGATIVE); URINE LEUKOCYTE ESTERASE 3+ Leu/uL (Negative); URINE PROTEIN 2+ mg/dL (NEGATIVE); URINE UROBILINOGEN NORMAL mg/dL (0.2-1.0); WBC CLUMPS MANY /hpf; WBC URINE 988 /hpf (0-5)
--- NOTE | 2016-12-11 13:53 | C.PDOC ---
History Of Present Illness 65 y/o F c PMHx HTN, CHF, Parkinson's Disease p/w altered mental status x 2 weeks. Family states patient has been with increased confusion, hallucinations, and decreased appetite for the last 2 weeks. Parkinson's medications were recently decreased due to these symptoms. Patient answers simple questions, denies pain or shortness of breath. Full ROS unobtainable due to clinical condition. Time Seen by Provider: 12/11/16 13:04 Chief Complaint (Nursing): Altered Mental Status Past Medical History Vital Signs: Last Vital Signs Temp 99.5 F 12/11/16 13:10 Pulse 118 H 12/11/16 14:12 Resp 36 H 12/11/16 14:12 BP 114/87 12/11/16 14:12 Pulse Ox 100 12/11/16 15:15 - Medical History PMH: CHF, HTN, Parkinson's Disease Denies: Chronic Kidney Disease - [facility] Procedures FLUOROSCOPY OF LEFT HEART USING LOW OSMOLAR CONTRAST (10/03/16) FLUOROSCOPY OF MULT COR ART USING L OSM CONTRAST (10/03/16) MEASURE CARDIAC SAMPL & PRESSURE, BILATERAL, PERC (10/03/16) Family History: States: No Known Family Hx - Social History Hx Alcohol Use: No Hx Substance Use: No - Immunization History Hx Tetanus Toxoid Vaccination: (unk) Hx Influenza Vaccination: Yes (2016) Hx Pneumococcal Vaccination: No (unk) Review Of Systems Review Of Systems: ROS cannot be obtained secondary to pt's inabilty to answer questions. Physical Exam - Physical Exam Additional Physical Exam Comments: Constitutional: No acute distress. Head: Normocephalic. Atraumatic. Eyes: PERRL. ENT: Moist mucous membranes. Neck: Supple. Cardiovascular: Tachycardic. Radial pulse 2+ bilaterally. Chest: No tenderness. Respiratory: Clear to auscultation bilaterally. GI: Soft. Nontender. Nondistended. : Malodorous urine. Back: No CVA tenderness. Musculoskeletal: No tenderness or swelling of extremities. Skin: No rash. Neurologic: Oriented x 2 (person/place). ED Course And Treatment - Laboratory Results Result Diagrams: 12/11/16 13:34 12/11/16 13:34 O2 Sat by Pulse Oximetry: 100 Medical Decision Making Medical Decision Making: Lactate over 2. CODE SEPSIS called. Will not administer full dose of IVF 30cc/ kg due to history of CHF with stable blood pressure. Antibiotics administered. EKG 128 bpm, normal sinus, no ST/T wave changes. FINDINGS: LUNGS: No active pulmonary disease. PLEURA: No significant pleural effusion identified, no pneumothorax apparent. CARDIOVASCULAR: Cardiomegaly. No evidence of acute, significant cardiovascular disease. Venous access catheter in stable, satisfactory position. OSSEOUS STRUCTURES: No significant abnormalities. VISUALIZED UPPER ABDOMEN: Normal. OTHER FINDINGS: None. IMPRESSION: No active disease. No significant interval change compared to the prior examination(s). Dr. Hawkins accepts patient to her service. Recommends CT Head due to history of lymphoma. States that HR is at this rate at baseline. ICU consulted, Dr. Lyles recommends telemetry admission at this time. Disposition Discussed With : Diana Hawkins Doctor Will See Patient In The: Hospital - Disposition Disposition: HOSPITALIZED Disposition Time: 14:20 Condition: GUARDED Forms: [facility] (Thai) - POA Core Measure Indicators: Code Sepsis - Clinical Impression Clinical Impression: UTI (urinary tract infection), Sepsis
[2016-12-11] MEDS ORDERED: Cefepime 1 GM in Sodium Chloride 0.9% 100 ML IVPB ONE (14:00)
[2016-12-11 14:02] LABS: TROPONIN I 0.049 ng/mL (0.00-0.120)
[2016-12-11 14:07] LABS: NEUTROPHIL 81 % (50-75); NUCLEATED RED BLOOD CELL 1 % (0-0); TOTAL CELLS COUNTED 100
[2016-12-11] MEDS ORDERED: Vancomycin 1 GM 1 GM/250 ML BAG IVPB ONE (14:58)
--- NOTE | 2016-12-11 15:52 | CT ---
PROCEDURE: CT HEAD WITHOUT CONTRAST. HISTORY: confusion, h/o lymphoma COMPARISON: Brain MRI without contrast 10/05/2016. TECHNIQUE: Axial computed tomography images were obtained through the head/brain without intravenous contrast. Radiation dose: Total exam DLP = 982.82 mGy-cm. This CT exam was performed using one or more of the following dose reduction techniques: Automated exposure control, adjustment of the mA and/or kV according to patient size, and/or use of iterative reconstruction technique. FINDINGS: HEMORRHAGE: No intracranial hemorrhage. BRAIN: Mild diffuse cerebral atrophy and chronic microangiopathy appear reiterated. No suspicious interval findings are identified. There is no mass effect or suspicious extra-axial collection identified. Midline brain and appears grossly nonfocal once again. The visualized craniocervical junction appears intact. VENTRICLES: Unremarkable. No hydrocephalus. CALVARIUM: Unremarkable. PARANASAL SINUSES: Unremarkable as visualized. No significant inflammatory changes. MASTOID AIR CELLS: Unremarkable as visualized. No inflammatory changes. OTHER FINDINGS: None. IMPRESSION: Stable limited age related neuro degenerative changes appear reiterated without definite acute interval findings as discussed above. Follow-up CT or MRI are available as clinically warranted.
[2016-12-11 17:12] LABS: VENOUS BLOOD GAS BASE EXCESS -3.8 mmol/L (0.0-2.0); VENOUS BLOOD GAS PCO2 35 mmHg (40-60); VENOUS BLOOD PH 7.38 (7.32-7.43)
[2016-12-11] MEDS ORDERED: SODIUM CHLORIDE 0.9% IVPB SCH (18:45)
[2016-12-11] MEDS ORDERED: VANCOMYCIN IVPB SCH (18:45)
[2016-12-11] MEDS ORDERED: Cefepime IV 1 gm in Dextrose 1 GM/50 ML BAG IVPB SCH (18:45)
[2016-12-11] MEDS ORDERED: Dextrose 5%/0.45% NS 1,000 ML IV SCH (19:00)
--- NOTE | 2016-12-11 19:04 | CP.PCM.HP ---
History of Present Illness - History of Present Illness History of Present Illness: Admitted this patient age 65 because Of confusion and not eating for the past 4 days. Patient was just discharged from the subacute rehabilatation faci for debility for Non ischemic cardiomyopathy, Parkinson's disease, congestive heart failure, and hypotension, and diffuse large cell lymphoma on remission. Present on Admission - Present on Admission Any Indicators Present on Admission: No Review of Systems - Review of Systems Systems not reviewed;Unavailable: Altered Mental Status - EENT Nose/Mouth/Throat: Dry Mouth - Cardiovascular Cardiovascular: Palpitations - Reproductive: Female Reproductive:Female: Menopausal - Menstruation Menstruation: Post Menopausal - Musculoskeletal Musculoskeletal: Muscle Weakness Past Patient History - Tetanus Immunizations Tetanus Immunization: Unknown - Past Medical History & Family History Past Medical History?: Yes - Past Social History Smoking Status: Never Smoked Alcohol: None Drugs: Denies Home Situation {Lives}: With Family Domestic Violence: Negative - CARDIAC Hx Cardiac Disorders: Yes Hx Congestive Heart Failure: Yes - PULMONARY Hx Respiratory Disorders: No - NEUROLOGICAL Hx Parkinson's Disease: Yes - HEENT Hx HEENT Problems: No - RENAL Hx Chronic Kidney Disease: No - ENDOCRINE/METABOLIC Hx Endocrine Disorders: No - HEMATOLOGICAL/ONCOLOGICAL Hx Blood Disorders: No Hx Lymphoma: Yes Other/Comment: " I HAVE SOME KIND OF CANCER IN MY BACK" - INTEGUMENTARY Hx Dermatological Problems: No - MUSCULOSKELETAL/RHEUMATOLOGICAL Hx Falls: No - GASTROINTESTINAL Hx Constipation: Yes - PSYCHIATRIC Hx Hallucinations: Yes Hx Substance Use: No - SURGICAL HISTORY Hx Surgeries: Yes Other/Comment: R subclavian shunt - ANESTHESIA Hx Anesthesia: Yes Hx Anesthesia Reactions: No Meds Allergies/Adverse Reactions: Allergies Allergy/AdvReac Type Severity Reaction Status Date / Time No Known Allergies Allergy Verified 12/11/16 12:40 Physical Exam - Constitutional Appears: Agitated, Confused, Chronically Ill - Head Exam Head Exam: ATRAUMATIC, NORMAL INSPECTION, NORMOCEPHALIC - Eye Exam Eye Exam: Normal appearance Pupil Exam: PERRL - ENT Exam ENT Exam: Mucous Membranes Dry - Neck Exam Neck exam: Positive for: Full Rom - Respiratory Exam Respiratory Exam: Clear to Auscultation Bilateral, NORMAL BREATHING PATTERN - Cardiovascular Exam Cardiovascular Exam: Tachycardia, +S1, +S2 - GI/Abdominal Exam GI & Abdominal Exam: Normal Bowel Sounds - Rectal Exam Rectal Exam: Deferred - Extremities Exam Extremities exam: Positive for: normal inspection - Back Exam Back exam: NORMAL INSPECTION - Neurological Exam Neurological exam: Altered - Skin Skin Exam: Intact, Normal Color Results - Vital Signs Recent Vital Signs: Last Vital Signs Temp 99.1 F 12/11/16 18:10 Pulse 118 H 12/11/16 18:10 Resp 20 12/11/16 18:10 BP 93/62 L 12/11/16 18:10 Pulse Ox 100 12/11/16 18:10 - Labs Result Diagrams: 12/11/16 13:34 12/11/16 13:34 Labs: Laboratory Results - last 24 hr 12/11/16 12/11/16 12/11/16 13:26 13:34 13:34 WBC 9.1 D RBC 3.95 Hgb 12.3 Hct 36.7 MCV 93.1 MCH 31.2 H MCHC 33.5 RDW 19.7 H Plt Count 119 L D MPV 10.2 Neut % (Auto) 87.3 H Lymph % (Auto) 4.0 L [place] % (Auto) 8.3 Eos % (Auto) 0.2 Baso % (Auto) 0.2 Neut # 7.9 H Lymph # 0.4 L [place] # 0.8 Eos # 0.0 Baso # 0.0 Neutrophils % (Manual) 81 H Band Neutrophils % 11 H* Lymphocytes % (Manual) 4 L Monocytes % (Manual) 4 Nucleated RBC % 1 H Platelet Estimate Slightly decreased L Poikilocytosis (manual Slight Anisocytosis (manual) Moderate Target Cells Slight [place] Cells Moderate PT 16.7 H INR 1.5 APTT 30 pO2 18 L VBG pH 7.36 VBG pCO2 39 L VBG HCO3 20.5 VBG Total CO2 23.2 VBG O2 Sat (Calc) 23.0 L VBG Base Excess -3.1 L VBG Potassium 4.8 Sodium 139.0 Chloride 107.0 Glucose 97 Lactate 2.3 H Potassium Carbon Dioxide Anion Gap BUN Creatinine Est GFR ( Amer) Est GFR (Non-Af Amer) Random Glucose Calcium Total Bilirubin AST ALT Alkaline Phosphatase Total Creatine Kinase CK-MB (Mass) Troponin I NT-Pro-B Natriuret Pep Total Protein Albumin Globulin Albumin/Globulin Ratio Lipase Venous Blood Potassium 4.8 Urine Color Urine Clarity Urine pH Ur Specific [place] Urine Protein Urine Glucose (UA) Urine Ketones Urine Blood Urine Nitrate Urine Bilirubin Urine Urobilinogen Ur Leukocyte Esterase Urine WBC (Auto) Urine RBC (Auto) Urine WBC Clumps (Auto) Ur Squamous Epith Cells Urine Bacteria 12/11/16 12/11/16 12/11/16 13:34 13:41 16:58 WBC RBC Hgb Hct MCV MCH MCHC RDW Plt Count MPV Neut % (Auto) Lymph % (Auto) [place] % (Auto) Eos % (Auto) Baso % (Auto) Neut # Lymph # [place] # Eos # Baso # Neutrophils % (Manual) Band Neutrophils % Lymphocytes % (Manual) Monocytes % (Manual) Nucleated RBC % Platelet Estimate Poikilocytosis (manual Anisocytosis (manual) Target Cells [place] Cells PT INR APTT pO2 22 L VBG pH 7.38 VBG pCO2 35 L VBG HCO3 20.3 VBG Total CO2 21.8 L VBG O2 Sat (Calc) 33.5 L VBG Base Excess -3.8 L VBG Potassium 5.0 Sodium 136 139.0 Chloride 105 107.0 Glucose 94 Lactate 3.7 H Potassium 4.8 Carbon Dioxide 22 Anion Gap 14 BUN 49 H Creatinine 1.3 H Est GFR ( Amer) 49 Est GFR (Non-Af Amer) 41 Random Glucose 85 Calcium 8.8 Total Bilirubin 4.1 H AST 23 ALT 44 Alkaline Phosphatase 74 Total Creatine Kinase 73 CK-MB (Mass) 0.63 Troponin I 0.0490 NT-Pro-B Natriuret Pep 93139 H Total Protein 6.6 Albumin 3.5 Globulin 3.1 Albumin/Globulin Ratio 1.1 Lipase 18 L Venous Blood Potassium 5.0 Urine Color [place] Urine Clarity Hazy Urine pH 5.0 Ur Specific [place] 1.015 Urine Protein 2+ H Urine Glucose (UA) Normal Urine Ketones Negative Urine Blood 3+ H Urine Nitrate Negative Urine Bilirubin Negative Urine Urobilinogen Normal Ur Leukocyte Esterase 3+ H Urine WBC (Auto) 988 H Urine RBC (Auto) 76 H Urine WBC Clumps (Auto) Many H Ur Squamous Epith Cells 1 Urine Bacteria Few H Assessment & Plan (1) Altered mental status Status: Acute (2) Sepsis Status: Acute (3) UTI (urinary tract infection) Status: Acute Priority: High (4) History of B-cell lymphoma Status: Acute (5) Parkinson disease Status: Acute - Assessment and Plan (Free Text) Assessment: Assessment: Dehydration Urosepsis. Non Ischemic cardiomyopathy Hx Of CHF parkinsons Diffuse large cell lymphoma. lactic acid acidosis. Plan: Plan: ID consult with Dr. Prudence Lynn Vancomycin by IV. Maxipine by IV. Continue Contam and Sinemet Iv Fluids.
--- NOTE | 2016-12-11 21:06 | CP.PCM.CON ---
History of Present Illness - History of Present Illness History of Present Illness: INFECTIOUS DISEASE CONSULT; HPI. 65 y/o F c PMHx HTN, CHF, Parkinson's Disease p/w altered mental status x 2 weeks. Family states patient has been with increased confusion, hallucinations, and decreased appetite for the last 2 weeks. Parkinson's medications were recently decreased due to these symptoms. Patient answers simple questions, denies pain or shortness of breath. Patient was just discharged from the subacute rehabilatation for debility for Non ischemic cardiomyopathy, Parkinson's disease, congestive heart failure, and hypotension, and diffuse large cell lymphoma presumably in remission. patient was found to have increased bandemia and also with urinalysis showing 3 + blood and many WBCs of 988 with 3+ urinary leukocytes Patient was given a dose of IV vancomycin 1 g in the ER and started on IV Maxipime 1 g every 12 hourly. PMH: CHF, HTN, Parkinson's Disease Denies: Chronic Kidney Disease - [facility] Procedures FLUOROSCOPY OF LEFT HEART USING LOW OSMOLAR CONTRAST (10/03/16) FLUOROSCOPY OF MULT COR ART USING L OSM CONTRAST (10/03/16) MEASURE CARDIAC SAMPL & PRESSURE, BILATERAL, PERC (10/03/16) Family History: States: No Known Family Hx - Social History Hx Alcohol Use: No Hx Substance Use: No - Immunization History Hx Tetanus Toxoid Vaccination: (unk) Hx Influenza Vaccination: Yes (2016) Hx Pneumococcal Vaccination: No (unk) Allergy; NKA Full ROS unobtainable due to clinical condition Past Patient History - Tetanus Immunizations Tetanus Immunization: Unknown - Past Medical History & Family History Past Medical History?: Yes - Past Social History Smoking Status: Never Smoked Alcohol: None Drugs: Denies Home Situation {Lives}: With Family Domestic Violence: Negative - CARDIAC Hx Cardiac Disorders: Yes Hx Congestive Heart Failure: Yes - PULMONARY Hx Respiratory Disorders: No - NEUROLOGICAL Hx Parkinson's Disease: Yes - HEENT Hx HEENT Problems: No - RENAL Hx Chronic Kidney Disease: No - ENDOCRINE/METABOLIC Hx Endocrine Disorders: No - HEMATOLOGICAL/ONCOLOGICAL Hx Blood Disorders: Yes Other/Comment: " I HAVE SOME KIND OF CANCER IN MY BACK" - INTEGUMENTARY Hx Dermatological Problems: No - MUSCULOSKELETAL/RHEUMATOLOGICAL Hx Falls: No - GASTROINTESTINAL Hx Constipation: Yes - PSYCHIATRIC Hx Hallucinations: Yes Hx Substance Use: No - SURGICAL HISTORY Hx Surgeries: Yes Other/Comment: R subclavian shunt - ANESTHESIA Hx Anesthesia: Yes Hx Anesthesia Reactions: No Meds Allergies/Adverse Reactions: Allergies Allergy/AdvReac Type Severity Reaction Status Date / Time No Known Allergies Allergy Verified 12/11/16 12:40 - Medications Medications: Current Medications Carbidopa/Levodopa (Sinemet ) 2 tab PO TID [facility] Entacapone (Comtan) 200 mg PO ACBD [facility] Furosemide (Lasix) 20 mg PO DAILY [facility] Dextrose/Sodium Chloride (Dextrose 5%/0.45% Ns 1000 Ml) 1,000 mls @ 50 mls/hr IV .Q20H [facility] Last Admin: 12/11/16 19:20 Dose: 50 mls/hr Cefepime HCl (Maxipime Iv 1 Gm Premix) 1 gm in 50 mls @ 100 mls/hr IVPB Q12H [facility] Vancomycin HCl/Dextrose (Vancocin) 500 mg in 100 mls @ 100 mls/hr IVPB Q24H [facility] Stop: 12/17/16 03:01 Spironolactone (Aldactone) 25 mg PO DAILY [facility] Physical Exam - Constitutional Appears: Cachectic, Chronically Ill - Head Exam Head Exam: NORMAL INSPECTION - Eye Exam Eye Exam: PERRL, Scleral icterus - ENT Exam ENT Exam: Normal Oropharynx - Neck Exam Neck exam: Positive for: Normal Inspection - Respiratory Exam Respiratory Exam: Decreased Breath Sounds - Cardiovascular Exam Cardiovascular Exam: REGULAR RHYTHM, +S1, +S2 - GI/Abdominal Exam GI & Abdominal Exam: Normal Bowel Sounds, Soft - Extremities Exam Extremities exam: Positive for: pedal edema, pedal pulses present. Negative for : calf tenderness - Neurological Exam Neurological exam: Altered, CN II-XII Intact - Psychiatric Exam Psychiatric exam: Flat Affect - Skin Skin Exam: Dry, Warm Results - Vital Signs Recent Vital Signs: Last Vital Signs Temp 99.1 F 12/11/16 18:10 Pulse 118 H 12/11/16 18:10 Resp 20 12/11/16 18:10 BP 93/62 L 12/11/16 18:10 Pulse Ox 100 12/11/16 18:10 - Labs Result Diagrams: 12/12/16 07:59 12/12/16 07:59 Labs: Laboratory Results - last 24 hr 12/11/16 12/11/16 12/11/16 13:26 13:34 13:34 WBC 9.1 D RBC 3.95 Hgb 12.3 Hct 36.7 MCV 93.1 MCH 31.2 H MCHC 33.5 RDW 19.7 H Plt Count 119 L D MPV 10.2 Neut % (Auto) 87.3 H Lymph % (Auto) 4.0 L [place] % (Auto) 8.3 Eos % (Auto) 0.2 Baso % (Auto) 0.2 Neut # 7.9 H Lymph # 0.4 L [place] # 0.8 Eos # 0.0 Baso # 0.0 Neutrophils % (Manual) 81 H Band Neutrophils % 11 H* Lymphocytes % (Manual) 4 L Monocytes % (Manual) 4 Nucleated RBC % 1 H Platelet Estimate Slightly decreased L Poikilocytosis (manual Slight Anisocytosis (manual) Moderate Target Cells Slight [place] Cells Moderate PT 16.7 H INR 1.5 APTT 30 pO2 18 L VBG pH 7.36 VBG pCO2 39 L VBG HCO3 20.5 VBG Total CO2 23.2 VBG O2 Sat (Calc) 23.0 L VBG Base Excess -3.1 L VBG Potassium 4.8 Sodium 139.0 Chloride 107.0 Glucose 97 Lactate 2.3 H Potassium Carbon Dioxide Anion Gap BUN Creatinine Est GFR ( Amer) Est GFR (Non-Af Amer) Random Glucose Lactic Acid Calcium Total Bilirubin AST ALT Alkaline Phosphatase Total Creatine Kinase CK-MB (Mass) Troponin I NT-Pro-B Natriuret Pep Total Protein Albumin Globulin Albumin/Globulin Ratio Lipase Venous Blood Potassium 4.8 Urine Color Urine Clarity Urine pH Ur Specific [place] Urine Protein Urine Glucose (UA) Urine Ketones Urine Blood Urine Nitrate Urine Bilirubin Urine Urobilinogen Ur Leukocyte Esterase Urine WBC (Auto) Urine RBC (Auto) Urine WBC Clumps (Auto) Ur Squamous Epith Cells Urine Bacteria 12/11/16 12/11/16 12/11/16 13:34 13:41 16:58 WBC RBC Hgb Hct MCV MCH MCHC RDW Plt Count MPV Neut % (Auto) Lymph % (Auto) [place] % (Auto) Eos % (Auto) Baso % (Auto) Neut # Lymph # [place] # Eos # Baso # Neutrophils % (Manual) Band Neutrophils % Lymphocytes % (Manual) Monocytes % (Manual) Nucleated RBC % Platelet Estimate Poikilocytosis (manual Anisocytosis (manual) Target Cells [place] Cells PT INR APTT pO2 22 L VBG pH 7.38 VBG pCO2 35 L VBG HCO3 20.3 VBG Total CO2 21.8 L VBG O2 Sat (Calc) 33.5 L VBG Base Excess -3.8 L VBG Potassium 5.0 Sodium 136 139.0 Chloride 105 107.0 Glucose 94 Lactate 3.7 H Potassium 4.8 Carbon Dioxide 22 Anion Gap 14 BUN 49 H Creatinine 1.3 H Est GFR ( Amer) 49 Est GFR (Non-Af Amer) 41 Random Glucose 85 Lactic Acid Calcium 8.8 Total Bilirubin 4.1 H AST 23 ALT 44 Alkaline Phosphatase 74 Total Creatine Kinase 73 CK-MB (Mass) 0.63 Troponin I 0.0490 NT-Pro-B Natriuret Pep 33174 H Total Protein 6.6 Albumin 3.5 Globulin 3.1 Albumin/Globulin Ratio 1.1 Lipase 18 L Venous Blood Potassium 5.0 Urine Color [place] Urine Clarity Hazy Urine pH 5.0 Ur Specific [place] 1.015 Urine Protein 2+ H Urine Glucose (UA) Normal Urine Ketones Negative Urine Blood 3+ H Urine Nitrate Negative Urine Bilirubin Negative Urine Urobilinogen Normal Ur Leukocyte Esterase 3+ H Urine WBC (Auto) 988 H Urine RBC (Auto) 76 H Urine WBC Clumps (Auto) Many H Ur Squamous Epith Cells 1 Urine Bacteria Few H 12/11/16 19:29 WBC RBC Hgb Hct MCV MCH MCHC RDW Plt Count MPV Neut % (Auto) Lymph % (Auto) [place] % (Auto) Eos % (Auto) Baso % (Auto) Neut # Lymph # [place] # Eos # Baso # Neutrophils % (Manual) Band Neutrophils % Lymphocytes % (Manual) Monocytes % (Manual) Nucleated RBC % Platelet Estimate Poikilocytosis (manual Anisocytosis (manual) Target Cells [place] Cells PT INR APTT pO2 VBG pH VBG pCO2 VBG HCO3 VBG Total CO2 VBG O2 Sat (Calc) VBG Base Excess VBG Potassium Sodium Chloride Glucose Lactate Potassium Carbon Dioxide Anion Gap BUN Creatinine Est GFR ( Amer) Est GFR (Non-Af Amer) Random Glucose Lactic Acid 1.5 Calcium Total Bilirubin AST ALT Alkaline Phosphatase Total Creatine Kinase CK-MB (Mass) Troponin I NT-Pro-B Natriuret Pep Total Protein Albumin Globulin Albumin/Globulin Ratio Lipase Venous Blood Potassium Urine Color Urine Clarity Urine pH Ur Specific [place] Urine Protein Urine Glucose (UA) Urine Ketones Urine Blood Urine Nitrate Urine Bilirubin Urine Urobilinogen Ur Leukocyte Esterase Urine WBC (Auto) Urine RBC (Auto) Urine WBC Clumps (Auto) Ur Squamous Epith Cells Urine Bacteria - Imaging and Cardiology Chest x-ray Status: Report reviewed by me (no active disease) Assessment & Plan (1) Altered mental status Status: Acute (2) Sepsis Status: Acute (3) UTI (urinary tract infection) Status: Chronic Priority: High (4) CHF (congestive heart failure) Status: Chronic (5) History of B-cell lymphoma Status: Chronic (6) Parkinson disease Status: Acute - Assessment and Plan (Free Text) Plan: PANCULTURES. ESR CRP. CONTINUE iv MAXIPIME 1 G EVERY 12 HOURLY. 12/11/16. D/C IV VANCOMYCIN. IV AMIKACIN 500 MG STAT DOSE FOR BROADER ESBL-ENTEROBACTERICIAE COVERAGE. VANCO RANDOM LEVEL IN A.M. BMP IN A.M. CBC WITH DIFFERENTIAL IN A.M. FOLLOW-UP CULTURES TO ADJUST ANTIBIOTICS. REVIEW CT SCAN OF THE HEAD. MONITOR CLOSELY NEURO STATUS. WILL FOLLOW WITH YOU,AND MAKE ADJUSTMENTS NEEDED. THANK YOU.
[2016-12-12] MEDS: Cefepime IV 1 gm in Dextrose 1 GM/50 ML BAG IVPB SCH ×2 (01:05→13:00)
[2016-12-12] MEDS ORDERED: Vancomycin 500mg/D5W 100 ml 500 MG/100 ML BAG IVPB SCH (03:00)
[2016-12-12 08:18] LABS: BASO % 0.1 % (0.0-2.0); EOS % 0.4 % (0.0-4.0); HEMATOCRIT 37.9 % (34.0-47.0); LYMPH # 0.2 K/uL (1.0-4.3); LYMPH % 2.9 % (20.0-40.0); MEAN CELL VOLUME 93.2 fL (81.0-99.0); MEAN CORPUSCULAR HEMOGLOBIN 30.9 pg (27.0-31.0); MEAN CORPUSCULAR HGB CONC 33.1 g/dL (33.0-37.0); MEAN PLATELET VOLUME 10.1 fL (7.2-11.7); MONO # 0.4 K/uL (0.0-0.8); MONO % 5.6 % (0.0-10.0); NRBC % 0.1 % (0.0-2.0); PLATELET COUNT 112 K/uL (130-400); RED CELL DISTRIBUTION WIDTH 19.7 % (11.5-14.5); WHITE BLOOD COUNT 7.8 K/uL (4.8-10.8)
[2016-12-12 08:30] LABS: CHLORIDE 107 mmol/L (98-107); POTASSIUM 4.4 mmol/L (3.6-5.2); SODIUM 137 mmol/L (132-148)
[2016-12-12 08:32] LABS: ALB/GLOB RATIO 1.2 (1.0-2.1); ALKALINE PHOSPHATASE 66 U/L (38-126); AST/SGOT 27 U/L (14-36); BILIRUBIN,DIRECT 1.6 mg/dL (0.0-0.4); BLOOD UREA NITROGEN 46 mg/dL (7-17); CARBON DIOXIDE 19 mmol/L (22-30); GFR AFRICAN-AMERICAN > 60; GLUCOSE,RANDOM 102 mg/dL (65-105); TOTAL PROTEIN 5.6 g/dL (6.3-8.3)
[2016-12-12 08:33] LABS: ALT/SGPT 44 U/L (9-52); CALCIUM 8.5 mg/dl (8.6-10.4)
[2016-12-12 10:26] LABS: NEUTROPHIL 72 % (50-75); REACTIVE LYMPHOCYTES 2 % (0-0); TOTAL CELLS COUNTED 100
--- NOTE | 2016-12-12 10:49 | CP.PCM.PN ---
Subjective - Date & Time of Evaluation Date of Evaluation: 12/12/16 Time of Evaluation: 10:45 - Subjective Subjective: Patient is afebrile. Confused and disoriented. Urine ouypuy last night was 600 cc. Urine culture preliminary was gram negative rods, sensitivity pending. WBC count not elevated but the bands increased to 14% this AM. Pt. is not eating well. On IV fluids 5% d/0.45 NSS at 50 cc /hourly. On Amikacin by IV and Maxipine by IVPB Objective - Vital Signs/Intake and Output Vital Signs (last 24 hours): Temp Pulse Resp BP Pulse Ox 97.6 F 114 H 18 95/56 L 95 12/12/16 07:20 12/12/16 08:33 12/12/16 07:20 12/12/16 09:40 12/12/16 07:20 Intake and Output: 12/12/16 12/12/16 06:59 18:59 Intake Total 400 400 Output Total 600 Balance -200 400 - Medications Medications: Current Medications Carbidopa/Levodopa (Sinemet Cr) 1 tab PO QID [facility] Entacapone (Comtan) 200 mg PO ACBD [facility] Last Admin: 12/12/16 08:00 Dose: 200 mg Furosemide (Lasix) 20 mg PO DAILY [facility] Last Admin: 12/12/16 09:40 Dose: Not Given Dextrose/Sodium Chloride (Dextrose 5%/0.45% Ns 1000 Ml) 1,000 mls @ 50 mls/hr IV .Q20H [facility] Last Admin: 12/11/16 19:20 Dose: 50 mls/hr Cefepime HCl (Maxipime Iv 1 Gm Premix) 1 gm in 50 mls @ 100 mls/hr IVPB Q12H [facility] Last Admin: 12/12/16 01:05 Dose: 100 mls/hr Spironolactone (Aldactone) 25 mg PO DAILY [facility] Last Admin: 12/12/16 09:42 Dose: Not Given - Labs Labs: 12/12/16 07:59 12/12/16 07:59 PT 16.7 SECONDS (9.7-12.2) H 12/11/16 13:34 INR 1.5 12/11/16 13:34 APTT 30 SECONDS (21-34) 12/11/16 13:34 - Constitutional Appears: Confused, Chronically Ill - Head Exam Head Exam: ATRAUMATIC, NORMAL INSPECTION, NORMOCEPHALIC - Eye Exam Pupil Exam: PERRL - ENT Exam ENT Exam: Mucous Membranes Dry - Neck Exam Neck Exam: Full ROM - Respiratory Exam Respiratory Exam: Clear to Ausculation Bilateral, NORMAL BREATHING PATTERN - Cardiovascular Exam Cardiovascular Exam: Tachycardia, +S1, +S2 - GI/Abdominal Exam GI & Abdominal Exam: Soft, Normal Bowel Sounds - Rectal Exam Rectal Exam: Deferred - Extremities Exam Extremities Exam: Normal Inspection - Back Exam Back Exam: NORMAL INSPECTION - Neurological Exam Neurological Exam: Altered, Awake - Skin Skin Exam: Dry, Intact Assessment and Plan (1) Altered mental status Status: Acute (2) Sepsis Status: Acute (3) UTI (urinary tract infection) Status: Chronic (4) History of B-cell lymphoma Status: Chronic (5) Parkinson disease Status: Acute (6) CHF (congestive heart failure) Status: Chronic (7) Congestive cardiomyopathy Status: Chronic - Assessment and Plan (Free Text) Assessment: Status---Acute Plan: Plan: Increase IV fluids to 75 cc/hourly Continue IV Amikacin and Vanco. ABG stat. I&O Continue Sinemet and Contam
[2016-12-12 11:17] LABS: ABG ALLEN TEST POS; DRAW SITE RRA
[2016-12-12] MEDS: Dextrose 5%/0.45% NS 1,000 ML IV SCH (11:30)
--- NOTE | 2016-12-12 13:33 | CP.PCM.PN ---
Subjective - Date & Time of Evaluation Date of Evaluation: 12/12/16 Time of Evaluation: 13:33 Objective - Vital Signs/Intake and Output Vital Signs (last 24 hours): Temp Pulse Resp BP Pulse Ox 97.6 F 114 H 18 95/56 L 95 12/12/16 07:20 12/12/16 08:33 12/12/16 07:20 12/12/16 09:40 12/12/16 07:20 Intake and Output: 12/12/16 12/12/16 06:59 18:59 Intake Total 400 400 Output Total 600 Balance -200 400 - Medications Medications: Current Medications Carbidopa/Levodopa (Sinemet Cr) 1 tab PO QID [facility] Entacapone (Comtan) 200 mg PO ACBD [facility] Last Admin: 12/12/16 08:00 Dose: 200 mg Furosemide (Lasix) 20 mg PO DAILY [facility] Last Admin: 12/12/16 09:40 Dose: Not Given Cefepime HCl (Maxipime Iv 1 Gm Premix) 1 gm in 50 mls @ 100 mls/hr IVPB Q12H [facility] Last Admin: 12/12/16 01:05 Dose: 100 mls/hr Dextrose/Sodium Chloride (Dextrose 5%/0.45% Ns 1000 Ml) 1,000 mls @ 75 mls/hr IV .[id number] [facility] Amikacin Sulfate 350 mg/ (Sodium Chloride) 251.4 mls @ 250 mls/hr IVPB Q24H [facility] Spironolactone (Aldactone) 25 mg PO DAILY [facility] Last Admin: 12/12/16 09:42 Dose: Not Given - Labs Labs: 12/12/16 07:59 12/12/16 07:59 PT 16.7 SECONDS (9.7-12.2) H 12/11/16 13:34 INR 1.5 12/11/16 13:34 APTT 30 SECONDS (21-34) 12/11/16 13:34 Assessment and Plan (1) Altered mental status Status: Acute (2) Sepsis Status: Acute (3) UTI (urinary tract infection) Status: Chronic (4) CHF (congestive heart failure) Status: Chronic (5) History of B-cell lymphoma Status: Chronic (6) Parkinson disease Status: Acute
--- NOTE | 2016-12-12 13:36 | CARD ---
APPROVED REPORT EKG Measurement Heart [id number] <Conclusion> Sinus tachycardia with premature supraventricular complexes Possible Left atrial enlargement Cannot rule out Anterior infarct, age undetermined Abnormal ECG
--- NOTE | 2016-12-12 13:40 | CARD ---
APPROVED REPORT EKG Measurement Heart [id number] <Conclusion> Sinus tachycardia Low voltage QRS Cannot rule out Anterior infarct, age undetermined Abnormal ECG
[2016-12-12] MEDS: SODIUM CHLORIDE 0.9% IVPB SCH (14:22)
[2016-12-12] MEDS: AMIKACIN SULFATE IVPB SCH (14:22)
[2016-12-12] MEDS: Carbidopa/Levodopa 25/100 CR PO SCH ×3 (14:23→22:44)
--- NOTE | 2016-12-12 18:26 | CP.PCM.CON ---
History of Present Illness - History of Present Illness History of Present Illness: Reason for consultation: Sepsis, change in mental status 65-year-old female with history of large cell lymphoma, cardiomyopathy/ congestive heart failure, Parkinson's disease, hypertension was admitted with increasing confusion, poor appetite for the past 2 weeks. In the emergency room patient found to have elevated lactate level with bandemia and many WBCs in the urine. Patient was seen by infectious disease and started on IV antibiotics. Review of Systems - Review of Systems Systems not reviewed;Unavailable: Altered Mental Status Past Patient History - Tetanus Immunizations Tetanus Immunization: Unknown - Past Medical History & Family History Past Medical History?: Yes - Past Social History Smoking Status: Never Smoked Alcohol: None Drugs: Denies Home Situation {Lives}: With Family Domestic Violence: Negative - CARDIAC Hx Cardiac Disorders: Yes Hx Congestive Heart Failure: Yes - PULMONARY Hx Respiratory Disorders: No - NEUROLOGICAL Hx Parkinson's Disease: Yes - HEENT Hx HEENT Problems: No - RENAL Hx Chronic Kidney Disease: No - ENDOCRINE/METABOLIC Hx Endocrine Disorders: No - HEMATOLOGICAL/ONCOLOGICAL Hx Blood Disorders: Yes Other/Comment: " I HAVE SOME KIND OF CANCER IN MY BACK" - INTEGUMENTARY Hx Dermatological Problems: No - MUSCULOSKELETAL/RHEUMATOLOGICAL Hx Falls: No - GASTROINTESTINAL Hx Constipation: Yes - PSYCHIATRIC Hx Hallucinations: Yes Hx Substance Use: No - SURGICAL HISTORY Hx Surgeries: Yes Other/Comment: R subclavian shunt - ANESTHESIA Hx Anesthesia: Yes Hx Anesthesia Reactions: No Meds Allergies/Adverse Reactions: Allergies Allergy/AdvReac Type Severity Reaction Status Date / Time No Known Allergies Allergy Verified 12/11/16 12:40 - Medications Medications: Current Medications Carbidopa/Levodopa (Sinemet Cr) 1 tab PO QID [facility] Last Admin: 12/12/16 14:23 Dose: 1 tab Entacapone (Comtan) 200 mg PO ACBD [facility] Last Admin: 12/12/16 08:00 Dose: 200 mg Furosemide (Lasix) 20 mg PO DAILY [facility] Last Admin: 12/12/16 09:40 Dose: Not Given Cefepime HCl (Maxipime Iv 1 Gm Premix) 1 gm in 50 mls @ 100 mls/hr IVPB Q12H [facility] Last Admin: 12/12/16 13:00 Dose: 100 mls/hr Dextrose/Sodium Chloride (Dextrose 5%/0.45% Ns 1000 Ml) 1,000 mls @ 75 mls/hr IV .[id number] [facility] Last Admin: 12/12/16 11:30 Dose: 75 mls/hr Amikacin Sulfate 350 mg/ (Sodium Chloride) 251.4 mls @ 250 mls/hr IVPB Q24H [facility] Last Admin: 12/12/16 14:22 Dose: 250 mls/hr Spironolactone (Aldactone) 25 mg PO DAILY [facility] Last Admin: 12/12/16 09:42 Dose: Not Given Physical Exam - Head Exam Head Exam: ATRAUMATIC, NORMOCEPHALIC - ENT Exam ENT Exam: Mucous Membranes Dry - Neck Exam Neck exam: Positive for: Normal Inspection - Respiratory Exam Respiratory Exam: Clear to Auscultation Bilateral - Cardiovascular Exam Cardiovascular Exam: REGULAR RHYTHM - GI/Abdominal Exam GI & Abdominal Exam: Normal Bowel Sounds - Extremities Exam Extremities exam: Positive for: normal inspection Results - Vital Signs Recent Vital Signs: Last Vital Signs Temp 97.5 F L 12/12/16 15:57 Pulse 120 H 12/12/16 15:57 Resp 20 12/12/16 15:57 BP 167/75 H 12/12/16 16:00 Pulse Ox 95 12/12/16 15:57 - Labs Result Diagrams: 12/12/16 07:59 12/12/16 07:59 Labs: Laboratory Results - last 24 hr 12/11/16 12/12/16 12/12/16 19:29 07:59 07:59 WBC 7.8 RBC 4.06 Hgb 12.5 Hct 37.9 MCV 93.2 MCH 30.9 MCHC 33.1 RDW 19.7 H Plt Count 112 L MPV 10.1 Neut % (Auto) 91.0 H Lymph % (Auto) 2.9 L [place] % (Auto) 5.6 Eos % (Auto) 0.4 Baso % (Auto) 0.1 Neut # 7.1 H Lymph # 0.2 L [place] # 0.4 Eos # 0.0 Baso # 0.0 Neutrophils % (Manual) 72 Band Neutrophils % 14 H* Lymphocytes % (Manual) 6 L Reactive Lymphs % 2 H Monocytes % (Manual) 6 Platelet Estimate Slightly decreased L Poikilocytosis (manual Slight Anisocytosis (manual) Moderate Target Cells Slight [place] Cells Marked Puncture Site pCO2 pO2 HCO3 ABG pH ABG Total CO2 ABG O2 Saturation ABG Base Excess [place] Test ABG Potassium A-a O2 Difference Respiratory Index Glucose Lactate Liter Flow FiO2 Sodium 137 Potassium 4.4 Chloride 107 Carbon Dioxide 19 L Anion Gap 15 BUN 46 H Creatinine 0.9 Est GFR ( Amer) > 60 Est GFR (Non-Af Amer) > 60 POC Glucose (mg/dL) Random Glucose 102 Lactic Acid 1.5 Calcium 8.5 L Total Bilirubin 3.0 H Direct Bilirubin 1.6 H AST 27 ALT 44 Alkaline Phosphatase 66 Total Protein 5.6 L Albumin 3.1 L Globulin 2.5 Albumin/Globulin Ratio 1.2 Arterial Blood Potassium Random Vancomycin 12/12/16 12/12/16 12/12/16 07:59 11:07 11:14 WBC RBC Hgb Hct MCV MCH MCHC RDW Plt Count MPV Neut % (Auto) Lymph % (Auto) [place] % (Auto) Eos % (Auto) Baso % (Auto) Neut # Lymph # [place] # Eos # Baso # Neutrophils % (Manual) Band Neutrophils % Lymphocytes % (Manual) Reactive Lymphs % Monocytes % (Manual) Platelet Estimate Poikilocytosis (manual Anisocytosis (manual) Target Cells [place] Cells Puncture Site Rra pCO2 22 L pO2 92 HCO3 19.8 L ABG pH 7.45 ABG Total CO2 16.0 L ABG O2 Saturation 98.7 H ABG Base Excess -6.6 L [place] Test Pos ABG Potassium 4.0 A-a O2 Difference 80.0 Respiratory Index 0.9 Glucose 158 H Lactate 3.7 H Liter Flow 2.0 FiO2 28.0 Sodium 139.0 Potassium Chloride 110.0 H Carbon Dioxide Anion Gap BUN Creatinine Est GFR ( Amer) Est GFR (Non-Af Amer) POC Glucose (mg/dL) 153 H Random Glucose Lactic Acid Calcium Total Bilirubin Direct Bilirubin AST ALT Alkaline Phosphatase Total Protein Albumin Globulin Albumin/Globulin Ratio Arterial Blood Potassium 4.0 Random Vancomycin 8.16 12/12/16 16:32 WBC RBC Hgb Hct MCV MCH MCHC RDW Plt Count MPV Neut % (Auto) Lymph % (Auto) [place] % (Auto) Eos % (Auto) Baso % (Auto) Neut # Lymph # [place] # Eos # Baso # Neutrophils % (Manual) Band Neutrophils % Lymphocytes % (Manual) Reactive Lymphs % Monocytes % (Manual) Platelet Estimate Poikilocytosis (manual Anisocytosis (manual) Target Cells [place] Cells Puncture Site pCO2 pO2 HCO3 ABG pH ABG Total CO2 ABG O2 Saturation ABG Base Excess [place] Test ABG Potassium A-a O2 Difference Respiratory Index Glucose Lactate Liter Flow FiO2 Sodium Potassium Chloride Carbon Dioxide Anion Gap BUN Creatinine Est GFR ( Amer) Est GFR (Non-Af Amer) POC Glucose (mg/dL) 95 Random Glucose Lactic Acid Calcium Total Bilirubin Direct Bilirubin AST ALT Alkaline Phosphatase Total Protein Albumin Globulin Albumin/Globulin Ratio Arterial Blood Potassium Random Vancomycin Assessment & Plan (1) Altered mental status Status: Acute Comment: Secondary to sepsis. IV antibiotics per infectious disease. Follow- up culture and sensitivity. Gentle hydration. Follow-up lactate level (2) Parkinson disease Status: Acute (3) Congestive cardiomyopathy Status: Chronic (4) History of B-cell lymphoma Status: Chronic
--- NOTE | 2016-12-12 19:44 | CP.PCM.PN ---
Subjective - Date & Time of Evaluation Date of Evaluation: 12/12/16 Time of Evaluation: 19:44 - Subjective Subjective: CHIEF COMPLAINTS TODAY : afebrile Awake but confused Unable to answer questions. Aunt by her side. patient with Rodriguez placed in ER-debbie colored and hazy. ROS..on observation only HEENT : N. Resp : No SOB wheezing, cough Cardio : No CP, PND orthopnea GI : No abd. Pain, n/v [employer] : No headache , focal deficit. Musculoskel : N Ext. : Pedal pulses intact, no edema or calf pain Derm : N Psych : N. PE. Pt. is awake ,CONFUSED,in no distress. V.S As noted in the chart Head ,ear nose,throat and eyes : Normal. Neck : Supple with normal carotids. Lungs: Clear air entry. Heart : S1 & S2 normal . . No murmur. S4 + Abd : Soft non tender with normal bowel sounds. Neuro : Moves all ext. with no localized deficit. Ext : No edema with intact pulses. Neg. calf tenderness Derm : No rashes or decubitus ulcer. Radiology/Labs . BLOOD CULTURES NEGATIVE GROWTH TO DATE .URINE CULTURE +VE GRAM-NEGATIVE ARETHA. CT HEAD UNREMARKABLE. Asssessment : SEPSIS SYNDROME/ AMS UROSEPSIS. CHF BY HISTORY HISTORY OF B CELL- LYMPHOMA ( IN REMISSION ) PARKINSONISM. Plan : CONTINUE iv MAXIPIME 1 G EVERY 12 HOURLY. 12/11/16 PATIENT GOT 1 DOSE OF AMIKACIN 500 MG ON 12/11/16. CONTINUE iv AMIKACIN 350 MG iv PIGGYBACK EVERY 24 HOURLY 2 DOSES FOLLOW-UP CULTURES TO ADJUST ANTIBIOTICS. fOLLOW-UP RENAL FUNCTIONS CLOSELY. Objective - Vital Signs/Intake and Output Vital Signs (last 24 hours): Temp Pulse Resp BP Pulse Ox 97.5 F L 120 H 20 167/75 H 95 12/12/16 15:57 12/12/16 15:57 12/12/16 15:57 12/12/16 16:00 12/12/16 15:57 Intake and Output: 12/12/16 12/13/16 18:59 06:59 Intake Total 400 Output Total 300 Balance 100 - Medications Medications: Current Medications Carbidopa/Levodopa (Sinemet Cr) 1 tab PO QID [facility] Last Admin: 12/12/16 19:03 Dose: 1 tab Entacapone (Comtan) 200 mg PO ACBD [facility] Last Admin: 12/12/16 18:59 Dose: 200 mg Furosemide (Lasix) 20 mg PO DAILY [facility] [place] Last Admin: 12/12/16 09:40 Dose: Not Given Cefepime HCl (Maxipime Iv 1 Gm Premix) 1 gm in 50 mls @ 100 mls/hr IVPB Q12H [facility] Last Admin: 12/12/16 13:00 Dose: 100 mls/hr Dextrose/Sodium Chloride (Dextrose 5%/0.45% Ns 1000 Ml) 1,000 mls @ 75 mls/hr IV .[id number] [facility] Last Admin: 12/12/16 11:30 Dose: 75 mls/hr Amikacin Sulfate 350 mg/ (Sodium Chloride) 251.4 mls @ 250 mls/hr IVPB Q24H [facility] Last Admin: 12/12/16 14:22 Dose: 250 mls/hr Spironolactone (Aldactone) 25 mg PO DAILY [facility] Last Admin: 12/12/16 09:42 Dose: Not Given - Labs Labs: 12/12/16 07:59 12/12/16 07:59 PT 16.7 SECONDS (9.7-12.2) H 12/11/16 13:34 INR 1.5 12/11/16 13:34 APTT 30 SECONDS (21-34) 12/11/16 13:34 Assessment and Plan (1) Altered mental status Status: Acute (2) Sepsis Status: Acute (3) UTI (urinary tract infection) Status: Chronic (4) CHF (congestive heart failure) Status: Chronic (5) History of B-cell lymphoma Status: Chronic (6) Parkinson disease Status: Acute
--- NOTE | 2016-12-12 22:08 | CP.PCM.CON ---
History of Present Illness - History of Present Illness History of Present Illness: 65 years old female brought to the ED because of increasing confusion, poor appetite and generalized weakness for the past few days. In the ED, she was found to be tachycardic, hypotensive, with a UTI and an elevated lactic acid. She was started on Cefepime, Vancomycine and Amikacin. She is known to me from the last admission for a non-ischemic dilated cardiomyopathy, a Parkinson's disease, a large B cell lymphoma in remission, a hypertension, a hypothyroidism. Her ECG revealed a sinus tachycardia, with no acute ST-T change. The CXR showed a cardomegaly with clear lungs. BUN:49 creatinine 1.6 and Pro-BNP 29,400. She denies any shortness of breath. Review of Systems - Review of Systems Systems not reviewed;Unavailable: Altered Mental Status - Constitutional Constitutional: Anorexia, Weakness - Cardiovascular Cardiovascular: Rapid Heart Rate - Musculoskeletal Musculoskeletal: Muscle Weakness - Neurological Neurological: Confusion - Psychiatric Psychiatric: Confusion Past Patient History - Tetanus Immunizations Tetanus Immunization: Unknown - Past Medical History & Family History Past Medical History?: Yes - Past Social History Smoking Status: Never Smoked Alcohol: None Drugs: Denies Home Situation {Lives}: With Family Domestic Violence: Negative - CARDIAC Hx Cardiac Disorders: Yes Hx Congestive Heart Failure: Yes - PULMONARY Hx Respiratory Disorders: No - NEUROLOGICAL Hx Parkinson's Disease: Yes - HEENT Hx HEENT Problems: No - RENAL Hx Chronic Kidney Disease: No - ENDOCRINE/METABOLIC Hx Endocrine Disorders: No - HEMATOLOGICAL/ONCOLOGICAL Hx Blood Disorders: Yes Hx Chemotherapy: Yes Hx Lymphoma: Yes Other/Comment: " I HAVE SOME KIND OF CANCER IN MY BACK" - INTEGUMENTARY Hx Dermatological Problems: No - MUSCULOSKELETAL/RHEUMATOLOGICAL Hx Falls: No - GASTROINTESTINAL Hx Constipation: Yes - PSYCHIATRIC Hx Hallucinations: Yes Hx Schizophrenia: Yes Hx Substance Use: No - SURGICAL HISTORY Hx Surgeries: Yes Hx Orthopedic Surgery: Yes (Spine surgery ) Other/Comment: R subclavian shunt - ANESTHESIA Hx Anesthesia: Yes Hx Anesthesia Reactions: No Meds Allergies/Adverse Reactions: Allergies Allergy/AdvReac Type Severity Reaction Status Date / Time No Known Allergies Allergy Verified 12/11/16 12:40 - Medications Medications: Current Medications Carbidopa/Levodopa (Sinemet Cr) 1 tab PO QID [facility] Last Admin: 12/12/16 19:03 Dose: 1 tab Entacapone (Comtan) 200 mg PO ACBD [facility] Last Admin: 12/12/16 18:59 Dose: 200 mg Furosemide (Lasix) 20 mg PO DAILY [facility] Last Admin: 12/12/16 09:40 Dose: Not Given Cefepime HCl (Maxipime Iv 1 Gm Premix) 1 gm in 50 mls @ 100 mls/hr IVPB Q12H [facility] Last Admin: 12/12/16 13:00 Dose: 100 mls/hr Dextrose/Sodium Chloride (Dextrose 5%/0.45% Ns 1000 Ml) 1,000 mls @ 75 mls/hr IV .[id number] [facility] Last Admin: 12/12/16 11:30 Dose: 75 mls/hr Amikacin Sulfate 350 mg/ (Sodium Chloride) 251.4 mls @ 250 mls/hr IVPB Q24H [facility] Last Admin: 12/12/16 14:22 Dose: 250 mls/hr Spironolactone (Aldactone) 25 mg PO DAILY [facility] Last Admin: 12/12/16 09:42 Dose: Not Given Physical Exam - Constitutional Appears: No Acute Distress, Confused, Chronically Ill - Head Exam Head Exam: NORMAL INSPECTION - Eye Exam Eye Exam: Normal appearance - ENT Exam ENT Exam: Normal Exam - Neck Exam Neck exam: Positive for: Normal Inspection - Respiratory Exam Respiratory Exam: Clear to Auscultation Bilateral, NORMAL BREATHING PATTERN - Cardiovascular Exam Cardiovascular Exam: Tachycardia, REGULAR RHYTHM - GI/Abdominal Exam GI & Abdominal Exam: Normal Bowel Sounds, Soft - Rectal Exam Rectal Exam: Deferred - Extremities Exam Extremities exam: Positive for: normal inspection - Back Exam Back exam: NORMAL INSPECTION - Neurological Exam Neurological exam: Alert Additional comments: Non verbal. - Psychiatric Exam Psychiatric exam: Flat Affect - Skin Skin Exam: Dry, Intact, Normal Color, Warm Results - Vital Signs Recent Vital Signs: Last Vital Signs Temp 97.5 F L 12/12/16 15:57 Pulse 120 H 12/12/16 15:57 Resp 20 12/12/16 15:57 BP 167/75 H 12/12/16 16:00 Pulse Ox 95 12/12/16 15:57 - Labs Result Diagrams: 12/12/16 07:59 12/12/16 07:59 Labs: Laboratory Results - last 24 hr 10/18/17 10/18/17 10/18/17 07:59 07:59 07:59 WBC 7.8 RBC 4.06 Hgb 12.5 Hct 37.9 MCV 93.2 MCH 30.9 MCHC 33.1 RDW 19.7 H Plt Count 112 L MPV 10.1 Neut % (Auto) 91.0 H Lymph % (Auto) 2.9 L [place] % (Auto) 5.6 Eos % (Auto) 0.4 Baso % (Auto) 0.1 Neut # 7.1 H Lymph # 0.2 L [place] # 0.4 Eos # 0.0 Baso # 0.0 Neutrophils % (Manual) 72 Band Neutrophils % 14 H* Lymphocytes % (Manual) 6 L Reactive Lymphs % 2 H Monocytes % (Manual) 6 Platelet Estimate Slightly decreased L Poikilocytosis (manual Slight Anisocytosis (manual) Moderate Target Cells Slight [place] Cells Marked Puncture Site pCO2 pO2 HCO3 ABG pH ABG Total CO2 ABG O2 Saturation ABG Base Excess [place] Test ABG Potassium A-a O2 Difference Respiratory Index Glucose Lactate Liter Flow FiO2 Sodium 137 Potassium 4.4 Chloride 107 Carbon Dioxide 19 L Anion Gap 15 BUN 46 H Creatinine 0.9 Est GFR ( Amer) > 60 Est GFR (Non-Af Amer) > 60 POC Glucose (mg/dL) Random Glucose 102 Calcium 8.5 L Total Bilirubin 3.0 H Direct Bilirubin 1.6 H AST 27 ALT 44 Alkaline Phosphatase 66 Total Protein 5.6 L Albumin 3.1 L Globulin 2.5 Albumin/Globulin Ratio 1.2 Arterial Blood Potassium Random Vancomycin 8.16 12/12/16 12/12/16 12/12/16 11:07 11:14 16:32 WBC RBC Hgb Hct MCV MCH MCHC RDW Plt Count MPV Neut % (Auto) Lymph % (Auto) [place] % (Auto) Eos % (Auto) Baso % (Auto) Neut # Lymph # [place] # Eos # Baso # Neutrophils % (Manual) Band Neutrophils % Lymphocytes % (Manual) Reactive Lymphs % Monocytes % (Manual) Platelet Estimate Poikilocytosis (manual Anisocytosis (manual) Target Cells [place] Cells Puncture Site Rra pCO2 22 L pO2 92 HCO3 19.8 L ABG pH 7.45 ABG Total CO2 16.0 L ABG O2 Saturation 98.7 H ABG Base Excess -6.6 L [place] Test Pos ABG Potassium 4.0 A-a O2 Difference 80.0 Respiratory Index 0.9 Glucose 158 H Lactate 3.7 H Liter Flow 2.0 FiO2 28.0 Sodium 139.0 Potassium Chloride 110.0 H Carbon Dioxide Anion Gap BUN Creatinine Est GFR ( Amer) Est GFR (Non-Af Amer) POC Glucose (mg/dL) 153 H 95 Random Glucose Calcium Total Bilirubin Direct Bilirubin AST ALT Alkaline Phosphatase Total Protein Albumin Globulin Albumin/Globulin Ratio Arterial Blood Potassium 4.0 Random Vancomycin 12/12/16 21:40 WBC RBC Hgb Hct MCV MCH MCHC RDW Plt Count MPV Neut % (Auto) Lymph % (Auto) [place] % (Auto) Eos % (Auto) Baso % (Auto) Neut # Lymph # [place] # Eos # Baso # Neutrophils % (Manual) Band Neutrophils % Lymphocytes % (Manual) Reactive Lymphs % Monocytes % (Manual) Platelet Estimate Poikilocytosis (manual Anisocytosis (manual) Target Cells [place] Cells Puncture Site pCO2 pO2 HCO3 ABG pH ABG Total CO2 ABG O2 Saturation ABG Base Excess [place] Test ABG Potassium A-a O2 Difference Respiratory Index Glucose Lactate Liter Flow FiO2 Sodium Potassium Chloride Carbon Dioxide Anion Gap BUN Creatinine Est GFR ( Amer) Est GFR (Non-Af Amer) POC Glucose (mg/dL) 128 H Random Glucose Calcium Total Bilirubin Direct Bilirubin AST ALT Alkaline Phosphatase Total Protein Albumin Globulin Albumin/Globulin Ratio Arterial Blood Potassium Random Vancomycin Assessment & Plan (1) Altered mental status Assessment and Plan: Secondary to sepsis caused by UTI. CT scan of the head was unremarkable. Status: Acute (2) Parkinson disease Assessment and Plan: To continue Sinemet Status: Acute (3) UTI (urinary tract infection) Assessment and Plan: Causing sepsis. To continue IV antibiotica as per Dr Prudence Lynn. Status: Acute Priority: High (4) Non-ischemic cardiomyopathy Assessment and Plan: So far, stable. To continue Lasix, Spironolactone, Lisinopril and Metoprolol when the BP is more stable. Status: Acute
[2016-12-13] MEDS: Dextrose 5%/0.45% NS 1,000 ML IV SCH ×2 (00:20→14:09)
[2016-12-13] MEDS: Cefepime IV 1 gm in Dextrose 1 GM/50 ML BAG IVPB SCH (02:41)
[2016-12-13 07:24] LABS: BASO % 0.6 % (0.0-2.0); EOS % 0.3 % (0.0-4.0); HEMATOCRIT 35.4 % (34.0-47.0); LYMPH # 0.4 K/uL (1.0-4.3); LYMPH % 6.6 % (20.0-40.0); MEAN CELL VOLUME 92.9 fL (81.0-99.0); MEAN CORPUSCULAR HEMOGLOBIN 31.3 pg (27.0-31.0); MEAN CORPUSCULAR HGB CONC 33.7 g/dL (33.0-37.0); MEAN PLATELET VOLUME 10.4 fL (7.2-11.7); MONO # 0.7 K/uL (0.0-0.8); MONO % 10.8 % (0.0-10.0); PLATELET COUNT 104 K/uL (130-400); RED CELL DISTRIBUTION WIDTH 19.5 % (11.5-14.5); WHITE BLOOD COUNT 6.2 K/uL (4.8-10.8)
[2016-12-13 07:34] LABS: CHLORIDE 110 mmol/L (98-107)
[2016-12-13 07:35] LABS: SODIUM 137 mmol/L (132-148)
[2016-12-13 07:37] LABS: ALB/GLOB RATIO 1.1 (1.0-2.1); AST/SGOT 29 U/L (14-36); BILIRUBIN,TOTAL 2.5 mg/dL (0.2-1.3); BLOOD UREA NITROGEN 40 mg/dL (7-17); CARBON DIOXIDE 19 mmol/L (22-30); GFR AFRICAN-AMERICAN > 60; TOTAL PROTEIN 5.3 g/dL (6.3-8.3)
[2016-12-13 07:38] LABS: ALKALINE PHOSPHATASE 66 U/L (38-126); ALT/SGPT 34 U/L (9-52); CALCIUM 8.3 mg/dl (8.6-10.4); GLUCOSE,RANDOM 106 mg/dL (65-105)
[2016-12-13] MEDS ORDERED: Propofol 10 mg/ml Inj (20 ML) ONE (07:54)
[2016-12-13] MEDS ORDERED: Midazolam 2 MG/2 ML VIAL ONE (07:54)
[2016-12-13] MEDS: Carbidopa/Levodopa 25/100 CR PO SCH ×5 (09:23→22:26)
[2016-12-13 09:40] LABS: NEUTROPHIL 73 % (50-75); TOTAL CELLS COUNTED 100
[2016-12-13 09:41] LABS: ACANTHOCYTES SLIGHT
--- NOTE | 2016-12-13 10:57 | CP.PCM.PN ---
Subjective - Date & Time of Evaluation Date of Evaluation: 12/13/16 Time of Evaluation: 10:50 - Subjective Subjective: Very confused. Will not take her medications today. Comtan and sinemet will come only in pill form. On IV 5% d/0.45NSS. Output is adequate. BUN-40 Normal creatinine and normal GFR. Blood c/ s came back positive for gram negative rods. Patient on IV Amikacin and Maxipine. Will get an MRI of the head W/WO contrast to evaluate cause of confusion. Objective - Vital Signs/Intake and Output Vital Signs (last 24 hours): Temp Pulse Resp BP Pulse Ox 97.8 F 128 H 20 122/85 100 12/13/16 08:50 12/13/16 09:05 12/13/16 08:50 12/13/16 08:50 12/13/16 08:50 Intake and Output: 12/13/16 12/13/16 06:59 18:59 Intake Total 1400 Output Total 500 Balance 900 - Medications Medications: Current Medications Carbidopa/Levodopa (Sinemet Cr) 1 tab PO QID [facility] Last Admin: 12/13/16 09:23 Dose: Not Given Entacapone (Comtan) 200 mg PO ACBD [facility] Last Admin: 12/13/16 09:24 Dose: Not Given Furosemide (Lasix) 20 mg PO DAILY [facility] Last Admin: 12/13/16 09:24 Dose: Not Given Cefepime HCl (Maxipime Iv 1 Gm Premix) 1 gm in 50 mls @ 100 mls/hr IVPB Q12H [facility] Last Admin: 12/13/16 02:41 Dose: 100 mls/hr Dextrose/Sodium Chloride (Dextrose 5%/0.45% Ns 1000 Ml) 1,000 mls @ 75 mls/hr IV .[id number] [facility] Last Admin: 12/13/16 00:20 Dose: Not Given Amikacin Sulfate 350 mg/ (Sodium Chloride) 251.4 mls @ 250 mls/hr IVPB Q24H [facility] Last Admin: 12/12/16 14:22 Dose: 250 mls/hr Metoprolol Tartrate (Lopressor) 12.5 mg PO BID [facility] Last Admin: 12/13/16 09:23 Dose: Not Given Spironolactone (Aldactone) 25 mg PO DAILY [facility] Last Admin: 12/13/16 09:24 Dose: Not Given - Labs Labs: 12/13/16 06:45 12/13/16 06:45 PT 16.7 SECONDS (9.7-12.2) H 12/11/16 13:34 INR 1.5 12/11/16 13:34 APTT 30 SECONDS (21-34) 12/11/16 13:34 - Constitutional Appears: Chronically Ill - Head Exam Head Exam: ATRAUMATIC, NORMAL INSPECTION, NORMOCEPHALIC - Eye Exam Pupil Exam: PERRL - ENT Exam ENT Exam: Mucous Membranes Dry - Neck Exam Neck Exam: Full ROM - Respiratory Exam Respiratory Exam: Clear to Ausculation Bilateral, NORMAL BREATHING PATTERN - Cardiovascular Exam Cardiovascular Exam: Tachycardia, REGULAR RHYTHM, +S1 - GI/Abdominal Exam GI & Abdominal Exam: Soft, Normal Bowel Sounds - Rectal Exam Rectal Exam: Deferred - Neurological Exam Neurological Exam: Altered, Awake - Skin Skin Exam: Dry, Intact, Normal Color Assessment and Plan (1) Altered mental status Status: Acute (2) Sepsis Status: Acute (3) UTI (urinary tract infection) Status: Acute (4) History of B-cell lymphoma Status: Chronic (5) Parkinson disease Status: Chronic (6) CHF (congestive heart failure) Status: Chronic (7) Congestive cardiomyopathy Status: Chronic - Assessment and Plan (Free Text) Plan: Status-Acute Plan: Continue Comtan and sinemet. Continue IV antibiotics Amikacin and Maxipine. Continue IV fluids. MRI of the brain. Continue Spironolacton and Lasix
[2016-12-13] MEDS ORDERED: Gadodiamide 287 MG/ML VIAL (15ML) IV ONE (12:25)
[2016-12-13] MEDS: Imipenem/Cilastatin 500 MG in Dextrose 5% In Water 100 ML IVPB SCH ×2 (14:05→18:04)
--- NOTE | 2016-12-13 14:09 | MRI ---
PROCEDURE: MRI BRAIN WITH AND WITHOUT CONTRAST HISTORY: AMS, HX OF LYMPHOMA COMPARISON: Comparison is made to the previous exam dated 10/05/2016 TECHNIQUE: Multiplanar, multisequence MR images of the brain were obtained with and without intravenous contrast enhancement. 12 mL of Omniscan was injected intravenously. FINDINGS: This study is again suboptimal due to patient's motion. HEMORRHAGE: None DWI: No evidence of an acute or early subacute infarction. BRAIN PARENCHYMA: No mass,mass effect or edema. Mild age-appropriate volume loss is again noted. ENHANCEMENT: No abnormal intracranial enhancement. VENTRICLES: Unremarkable. No hydrocephalus. CRANIUM: Unremarkable. ORBITS: Grossly unremarkable. PARANASAL SINUSES/MASTOIDS: Partial opacification of the left mastoid is again noted. No evidence of acute sinusitis. VASCULAR SYSTEM: Skull base flow voids intact. OTHER FINDINGS: None . IMPRESSION: Optimal study due to patient's motion. No evidence of acute pathology in the brain. No evidence of enhancing mass lesion mass effect or midline shift. No significant interval change noted since the previous exam.
[2016-12-13] MEDS: SODIUM CHLORIDE 0.9% IVPB SCH (14:47)
[2016-12-13] MEDS: AMIKACIN SULFATE IVPB SCH (14:47)
--- NOTE | 2016-12-13 16:26 | CP.PCM.PN ---
Subjective - Date & Time of Evaluation Date of Evaluation: 12/13/16 Time of Evaluation: 16:22 - Subjective Subjective: Patient lethargic, refuses all PO meds. On IVF at 75 ml/Hr. BP:120/60 HR: 120/ 60 HR: 120 ( sinus tachycardia) Afebrile, in no respiratory distress. Lungs: clear on auscultation. Heart: S1, S2 regular Urine output: 350 ml, concentrated. Objective - Vital Signs/Intake and Output Vital Signs (last 24 hours): Temp Pulse Resp BP Pulse Ox 97.8 F 128 H 20 122/85 100 12/13/16 08:50 12/13/16 09:05 12/13/16 08:50 12/13/16 08:50 12/13/16 08:50 Intake and Output: 12/13/16 12/13/16 06:59 18:59 Intake Total 1400 Output Total 500 Balance 900 - Medications Medications: Current Medications Carbidopa/Levodopa (Sinemet Cr) 1 tab PO QID [facility] Last Admin: 12/13/16 14:05 Dose: Not Given Entacapone (Comtan) 200 mg PO ACBD [facility] Last Admin: 12/13/16 09:24 Dose: Not Given Furosemide (Lasix) 20 mg PO DAILY [facility] Last Admin: 12/13/16 09:24 Dose: Not Given Dextrose/Sodium Chloride (Dextrose 5%/0.45% Ns 1000 Ml) 1,000 mls @ 75 mls/hr IV .[id number] [facility] Last Admin: 12/13/16 14:09 Dose: Not Given Amikacin Sulfate 350 mg/ (Sodium Chloride) 251.4 mls @ 250 mls/hr IVPB Q24H [facility] Last Admin: 12/13/16 14:47 Dose: 250 mls/hr Imipenem/Cilastatin Sodium 500 (mg/ Dextrose) 100 mls @ 100 mls/hr IVPB Q6H [facility] Last Admin: 12/13/16 14:05 Dose: 100 mls/hr Metoprolol Tartrate (Lopressor) 12.5 mg PO BID [facility] Last Admin: 12/13/16 09:23 Dose: Not Given Spironolactone (Aldactone) 25 mg PO DAILY [facility] Last Admin: 12/13/16 09:24 Dose: Not Given - Labs Labs: 12/13/16 06:45 12/13/16 06:45 PT 16.7 SECONDS (9.7-12.2) H 12/11/16 13:34 INR 1.5 12/11/16 13:34 APTT 30 SECONDS (21-34) 12/11/16 13:34 - Constitutional Appears: No Acute Distress, Confused, Chronically Ill - Head Exam Head Exam: NORMAL INSPECTION - Eye Exam Eye Exam: Normal appearance - ENT Exam ENT Exam: Normal Exam - Neck Exam Neck Exam: Normal Inspection - Respiratory Exam Respiratory Exam: Clear to Ausculation Bilateral, NORMAL BREATHING PATTERN - Cardiovascular Exam Cardiovascular Exam: Tachycardia, REGULAR RHYTHM - GI/Abdominal Exam GI & Abdominal Exam: Soft, Normal Bowel Sounds - Rectal Exam Rectal Exam: Deferred - Extremities Exam Extremities Exam: Normal Inspection - Back Exam Back Exam: NORMAL INSPECTION - Neurological Exam Additional comments: Arousable, non verbal. - Psychiatric Exam Psychiatric exam: Flat Affect - Skin Skin Exam: Dry, Intact, Normal Color, Warm Assessment and Plan (1) Altered mental status Assessment & Plan: Probable secondary to UTI, sepis. No clinical sign of heart failure. Status: Acute (2) Parkinson disease Assessment & Plan: To continue Sinemet PO if patient agrees to take her medications PO. Status: Chronic (3) UTI (urinary tract infection) Assessment & Plan: IV antibiotics as per DR. Prudence CORTES. Status: Acute (4) Non-ischemic cardiomyopathy Assessment & Plan: Stable. No sign of CHF. Status: Chronic
--- NOTE | 2016-12-13 20:05 | CP.PCM.PN ---
Subjective - Date & Time of Evaluation Date of Evaluation: 12/13/16 Time of Evaluation: 20:05 - Subjective Subjective: CHIEF COMPLAINTS TODAY : afebrile more confused Unable to answer questions. REFUSING MEDS BLOOD CULTURE +VE GRAM-NEGATIVE RODS. URINE CULTURE +VE ESBL E. COLI S-Primaxin/ amikacin R- CEFEPIME ROS..on observation only HEENT : N. Resp : No SOB wheezing, cough Cardio : No CP, PND orthopnea GI : No abd. Pain, n/v [employer] : No headache , focal deficit. Musculoskel : N Ext. : Pedal pulses intact, no edema or calf pain Derm : N Psych : N. PE. Pt. is awake ,CONFUSED,in no distress. V.S As noted in the chart Head ,ear nose,throat and eyes : Normal. Neck : Supple with normal carotids. Lungs: Clear air entry. Heart : S1 & S2 normal . . No murmur. S4 + Abd : Soft non tender with normal bowel sounds. Neuro : Moves all ext. with no localized deficit. Ext : No edema with intact pulses. Neg. calf tenderness Derm : No rashes or decubitus ulcer. Radiology/Labs . wbc 6.2, HEMOGLOBIN 11.9. pLATELETS 104 K-DECREASING CREATININE 0.8/bun 40 LFTS -N CT HEAD UNREMARKABLE. Asssessment : GRAM-NEGATIVE SEPSIS SEPSIS SYNDROME/ AMS UROSEPSIS. CHF BY HISTORY HISTORY OF B CELL- LYMPHOMA ( IN REMISSION ) PARKINSONISM. Plan : DC iv MAXIPIME 1 G EVERY 12 HOURLY. 12/11/16 START iv pRIMAXIN 500 MG EVERY 6 HOURLY .12/13/16. iNFUSE SLOWLY OVER 30MIN wATCH FOR SEIZURES PATIENT GOT 1 DOSE OF AMIKACIN 500 MG ON 12/11/16. CONTINUE iv AMIKACIN 350 MG iv PIGGYBACK EVERY 24 HOURLY 2 DOSES FOLLOW-UP CULTURES TO ADJUST ANTIBIOTICS. fOLLOW-UP RENAL FUNCTIONS CLOSELY. Objective - Vital Signs/Intake and Output Vital Signs (last 24 hours): Temp Pulse Resp BP Pulse Ox 97.4 F L 104 H 22 92/52 L 96 12/13/16 16:00 12/13/16 16:00 12/13/16 16:00 12/13/16 16:00 12/13/16 16:00 - Medications Medications: Current Medications Carbidopa/Levodopa (Sinemet Cr) 1 tab PO QID [facility] Last Admin: 10/19/17 18:06 Dose: Not Given Entacapone (Comtan) 200 mg PO ACBD [facility] Last Admin: 12/13/16 18:05 Dose: Not Given Furosemide (Lasix) 20 mg PO DAILY [facility] Last Admin: 12/13/16 09:24 Dose: Not Given Dextrose/Sodium Chloride (Dextrose 5%/0.45% Ns 1000 Ml) 1,000 mls @ 75 mls/hr IV .[id number] [facility] Last Admin: 12/13/16 14:09 Dose: Not Given Amikacin Sulfate 350 mg/ (Sodium Chloride) 251.4 mls @ 250 mls/hr IVPB Q24H [facility] Last Admin: 12/13/16 14:47 Dose: 250 mls/hr Imipenem/Cilastatin Sodium 500 (mg/ Dextrose) 100 mls @ 100 mls/hr IVPB Q6H [facility] Last Admin: 12/13/16 18:04 Dose: 100 mls/hr Metoprolol Tartrate (Lopressor) 12.5 mg PO BID [facility] Last Admin: 12/13/16 18:05 Dose: Not Given Spironolactone (Aldactone) 25 mg PO DAILY [facility] Last Admin: 12/13/16 09:24 Dose: Not Given - Labs Labs: 12/13/16 06:45 12/13/16 06:45 PT 16.7 SECONDS (9.7-12.2) H 12/11/16 13:34 INR 1.5 12/11/16 13:34 APTT 30 SECONDS (21-34) 12/11/16 13:34 Assessment and Plan (1) Altered mental status Status: Acute (2) Sepsis Status: Acute (3) UTI (urinary tract infection) Status: Acute (4) CHF (congestive heart failure) Status: Chronic (5) History of B-cell lymphoma Status: Chronic (6) Parkinson disease Status: Chronic
[2016-12-14] MEDS: Imipenem/Cilastatin 500 MG in Dextrose 5% In Water 100 ML IVPB SCH (00:53)
[2016-12-14] MEDS: Dextrose 5%/0.45% NS 1,000 ML IV SCH ×2 (05:49→17:09)
[2016-12-14 08:06] LABS: BASO % 0.2 % (0.0-2.0); EOS % 0.2 % (0.0-4.0); HEMATOCRIT 39.8 % (34.0-47.0); LYMPH # 0.7 K/uL (1.0-4.3); LYMPH % 12.8 % (20.0-40.0); MEAN CELL VOLUME 93.6 fL (81.0-99.0); MEAN CORPUSCULAR HEMOGLOBIN 31.2 pg (27.0-31.0); MEAN CORPUSCULAR HGB CONC 33.3 g/dL (33.0-37.0); MEAN PLATELET VOLUME 10.6 fL (7.2-11.7); MONO # 0.6 K/uL (0.0-0.8); MONO % 11.1 % (0.0-10.0); NRBC % 0.1 % (0.0-2.0); RED CELL DISTRIBUTION WIDTH 19.9 % (11.5-14.5); WHITE BLOOD COUNT 5.6 K/uL (4.8-10.8)
[2016-12-14 08:22] LABS: CHLORIDE 109 mmol/L (98-107)
[2016-12-14 08:23] LABS: POTASSIUM 3.7 mmol/L (3.6-5.2); SODIUM 140 mmol/L (132-148)
[2016-12-14 08:25] LABS: ALB/GLOB RATIO 1.1 (1.0-2.1); ALKALINE PHOSPHATASE 67 U/L (38-126); ALT/SGPT 39 U/L (9-52); AST/SGOT 22 U/L (14-36); BILIRUBIN,TOTAL 2.3 mg/dL (0.2-1.3); BLOOD UREA NITROGEN 31 mg/dL (7-17); CARBON DIOXIDE 20 mmol/L (22-30); GFR AFRICAN-AMERICAN > 60; GLUCOSE,RANDOM 99 mg/dL (65-105); TOTAL PROTEIN 5.7 g/dL (6.3-8.3)
[2016-12-14 08:28] LABS: CALCIUM 8.6 mg/dl (8.6-10.4)
[2016-12-14] MEDS: Carbidopa/Levodopa 25/100 CR PO SCH ×4 (10:46→21:03)
[2016-12-14] MEDS ORDERED: POLYETHYLENE GLYCOL 3350 17 GM/Dose PACKET PO PRN (11:09)
--- NOTE | 2016-12-14 11:15 | CP.PCM.PN ---
Subjective - Date & Time of Evaluation Date of Evaluation: 12/14/16 Time of Evaluation: 11:10 - Subjective Subjective: Patient still very confused. Ate a little bit this AM. Will barelly take her medications. MRI of the brain is negative. WBC is normal. Bands was not reported back today. BUN and creatinine wanda.; Blood culture is positive for gram negative rods. Sensitivity pending. Objective - Vital Signs/Intake and Output Vital Signs (last 24 hours): Temp Pulse Resp BP Pulse Ox 97.4 F L 106 H 18 94/52 L 106 H 12/14/16 07:05 12/14/16 09:00 12/14/16 07:05 12/14/16 10:43 12/14/16 10:00 Intake and Output: 12/14/16 12/14/16 06:59 18:59 Intake Total 600 Output Total 600 Balance 0 - Medications Medications: Current Medications Carbidopa/Levodopa (Sinemet Cr) 1 tab PO QID [facility] Last Admin: 12/14/16 10:46 Dose: 1 tab Docusate Sodium (Colace) 100 mg PO TID [facility] Entacapone (Comtan) 200 mg PO ACBD [facility] Last Admin: 12/14/16 08:30 Dose: 200 mg Furosemide (Lasix) 20 mg PO DAILY [facility] Last Admin: 12/14/16 10:43 Dose: Not Given Home Med (Polyethylene Glycol 3350 [Glycolax]) 119 gm PO Q8H PRN PRN Reason: Constipation Dextrose/Sodium Chloride (Dextrose 5%/0.45% Ns 1000 Ml) 1,000 mls @ 75 mls/hr IV .[id number] [facility] Last Admin: 12/14/16 05:49 Dose: 75 mls/hr Amikacin Sulfate 350 mg/ (Sodium Chloride) 251.4 mls @ 250 mls/hr IVPB Q24H [facility] Last Admin: 12/13/16 14:47 Dose: 250 mls/hr Imipenem/Cilastatin Sodium 500 (mg/ Sodium Chloride) 100 mls @ 100 mls/hr IVPB Q6H [facility] Metoprolol Tartrate (Lopressor) 12.5 mg PO BID [facility] Last Admin: 12/14/16 10:44 Dose: Not Given Spironolactone (Aldactone) 25 mg PO DAILY [facility] Last Admin: 12/14/16 10:42 Dose: Not Given Spironolactone (Aldactone) 25 mg PO DAILY [facility] - Labs Labs: 12/14/16 07:55 12/14/16 07:55 PT 16.7 SECONDS (9.7-12.2) H 12/11/16 13:34 INR 1.5 12/11/16 13:34 APTT 30 SECONDS (21-34) 12/11/16 13:34 - Constitutional Appears: Chronically Ill - Head Exam Head Exam: ATRAUMATIC, NORMAL INSPECTION, NORMOCEPHALIC - Eye Exam Pupil Exam: PERRL - ENT Exam ENT Exam: Mucous Membranes Dry - Respiratory Exam Respiratory Exam: Clear to Ausculation Bilateral, NORMAL BREATHING PATTERN - Cardiovascular Exam Cardiovascular Exam: Tachycardia, REGULAR RHYTHM, +S1, +S2 - GI/Abdominal Exam GI & Abdominal Exam: Soft, Normal Bowel Sounds - Rectal Exam Rectal Exam: Deferred - Extremities Exam Extremities Exam: Full ROM - Back Exam Back Exam: NORMAL INSPECTION - Neurological Exam Neurological Exam: Altered, Awake - Skin Skin Exam: Dry, Intact, Normal Color, Warm Assessment and Plan (1) Altered mental status Status: Acute (2) Sepsis Status: Acute (3) UTI (urinary tract infection) Status: Acute (4) History of B-cell lymphoma Status: Chronic (5) Parkinson disease Status: Chronic (6) CHF (congestive heart failure) Status: Chronic (7) Congestive cardiomyopathy Status: Chronic - Assessment and Plan (Free Text) Plan: Plan: Continue IV fluids and antibiotics Cosultation with Dr. Patricio FRITZ
[2016-12-14] MEDS: AMIKACIN SULFATE IVPB SCH (13:48)
[2016-12-14] MEDS: SODIUM CHLORIDE 0.9% IVPB SCH (13:48)
--- NOTE | 2016-12-14 13:49 | CP.PCM.PN ---
Subjective - Date & Time of Evaluation Date of Evaluation: 12/14/16 Time of Evaluation: 13:49 - Subjective Subjective: CHIEF COMPLAINTS TODAY : afebrile AWAKE BUT CONFUSED . Unable to answer questions. WENT FOR MRI OF THE BRAIN BLOOD CULTURE +VE 2:2 SETS ESBL +VE ESCHERICHIA COLI URINE CULTURE +VE ESBL E. COLI S-Primaxin/ amikacin R- CEFEPIME ROS..on observation only HEENT : N. Resp : No SOB wheezing, cough Cardio : No CP, PND orthopnea GI : No abd. Pain, n/v [employer] : No headache , focal deficit. Musculoskel : N Ext. : Pedal pulses intact, no edema or calf pain Derm : N Psych : N. PE. Pt. is awake ,CONFUSED,in no distress. V.S As noted in the chart Head ,ear nose,throat and eyes : Normal. Neck : Supple with normal carotids. Lungs: Clear air entry. Heart : S1 & S2 normal . . No murmur. S4 + Abd : Soft non tender with normal bowel sounds. Neuro : Moves all ext. with no localized deficit. Ext : No edema with intact pulses. Neg. calf tenderness Derm : No rashes or decubitus ulcer. Radiology/Labs . MRI of the brain NEGATIVE. See full report CT HEAD UNREMARKABLE. renal function stable. Asssessment : GRAM-NEGATIVE SEPSIS +VE ESBL +VE E. COLI 2:2 SETS source of sepsis most likely vs GI R/O BACTERIAL ENDOCARDITIS. SEPSIS SYNDROME/ AMS UROSEPSIS. CHF BY HISTORY HISTORY OF B CELL- LYMPHOMA ( IN REMISSION ) PARKINSONISM. Plan : 2 D ECHO R/O BACTERIAL ENDOCARDITIS. STOOLS FOR OCCULT BLOOD. ON IV PRIMAXIN 500 MG EVERY 6 HOURLY .12/13/16. iNFUSE SLOWLY OVER 30MIN WATCH FOR SEIZURES PATIENT GOT 1 DOSE OF AMIKACIN 500 MG ON 12/11/16. CONTINUE iv AMIKACIN 350 MG iv PIGGYBACK EVERY 24 HOURLY -DAY3 FOLLOW-UP repeat blood cultures in a.m. fOLLOW-UP RENAL FUNCTIONS CLOSELY. Objective - Vital Signs/Intake and Output Vital Signs (last 24 hours): Temp Pulse Resp BP Pulse Ox 97.4 F L 106 H 18 94/52 L 106 H 12/14/16 07:05 12/14/16 09:00 12/14/16 07:05 12/14/16 10:43 12/14/16 10:00 Intake and Output: 12/14/16 12/14/16 06:59 18:59 Intake Total 600 Output Total 600 Balance 0 - Medications Medications: Current Medications Carbidopa/Levodopa (Sinemet Cr) 1 tab PO QID [facility] Last Admin: 12/14/16 10:46 Dose: 1 tab Docusate Sodium (Colace) 100 mg PO TID [facility] Entacapone (Comtan) 200 mg PO ACBD [facility] Last Admin: 12/14/16 08:30 Dose: 200 mg Furosemide (Lasix) 20 mg PO DAILY [facility] Last Admin: 12/14/16 10:43 Dose: Not Given Home Med (Polyethylene Glycol 3350 [Glycolax]) 119 gm PO Q8H PRN PRN Reason: Constipation Dextrose/Sodium Chloride (Dextrose 5%/0.45% Ns 1000 Ml) 1,000 mls @ 75 mls/hr IV .[id number] [facility] Last Admin: 12/14/16 05:49 Dose: 75 mls/hr Amikacin Sulfate 350 mg/ (Sodium Chloride) 251.4 mls @ 250 mls/hr IVPB Q24H [facility] Last Admin: 12/13/16 14:47 Dose: 250 mls/hr Imipenem/Cilastatin Sodium 500 (mg/ Sodium Chloride) 100 mls @ 100 mls/hr IVPB Q6H [facility] Last Admin: 12/14/16 11:45 Dose: 100 mls/hr Metoprolol Tartrate (Lopressor) 12.5 mg PO BID [facility] Last Admin: 12/14/16 10:44 Dose: Not Given Spironolactone (Aldactone) 25 mg PO DAILY [facility] - Labs Labs: 12/14/16 07:55 12/14/16 07:55 PT 16.7 SECONDS (9.7-12.2) H 12/11/16 13:34 INR 1.5 12/11/16 13:34 APTT 30 SECONDS (21-34) 12/11/16 13:34 Assessment and Plan (1) Altered mental status Status: Acute (2) Sepsis Status: Acute (3) UTI (urinary tract infection) Status: Acute (4) CHF (congestive heart failure) Status: Chronic (5) History of B-cell lymphoma Status: Chronic (6) Parkinson disease Status: Chronic
--- NOTE | 2016-12-15 00:21 | CON ---
PSYCHIATRIC CONSULTATION DATE: 12/14/2016 CHIEF COMPLAINT AND REASON FOR CONSULTATION: The patient is referred by Dr. Hawkins for evaluation and co-management of the patient's history of Parkinson's that is exhibiting change in mental status, being increasingly getting confused, having hallucination, not eating, not drinking, and getting weak. HISTORY OF PRESENT ILLNESS: The patient is a 65-year-old female with history of Parkinson's according to her for about 2 years, history of CHF, hypertension. The patient was admitted here for altered mental status. According to the brother, the patient has not been eating and sleeping for the last few days and also not taking her medication. She also was reported to be hallucinating and getting more confused and getting weak. The patient was admitted here for urinary tract infection as noted by her urinalysis result and referred co-management because of persistent confusion. The patient was seen today with her brother, was noted to be somewhat confused, not really very verbal, and disoriented. She also has not been drinking enough fluids and also has not been eating well despite encouragement from the family. The patient has been also found not taking her medication. PAST PSYCHIATRIC HISTORY: Denies any. PAST MEDICAL HISTORY. As stated, history of Parkinson disease, history of hypertension, CHF. DRUG AND ALCOHOL HISTORY: Denies any. ALLERGIES: THE PATIENT HAS NO KNOWN ALLERGIES. SOCIAL HISTORY: The patient lives at two-family house. She is retired. LIST OF MEDICATIONS: Include spironolactone, Colace, Comtan, imipenem, duloxetine, Lasix, Lopressor, Sinemet. According to the patient, she was taking her medicine faithfully until a few days ago. PHYSICAL EXAMINATION VITAL SIGNS: Temperature is 97.4, pulse rate is 106, blood pressure is 94/53, respirations 18, oxygen saturation is about 100%. GENERAL: The patient is drowsy, but arousable, appears to have confused ans seen with brother. The patient is refusing to eat or drink. SKIN: No diaphoresis. HEENT: No headache or dizziness. NECK: Supple. RESPIRATORY: No dyspnea. CARDIOVASCULAR: No chest pain. GASTROINTESTINAL: Poor appetite. EXTREMITIES: Has bradykinesia and no tremors noted. MUSCULOSKELETAL: Feels weak. NEUROLOGIC: Alert with periods of confusion. GENITOURINARY: Not complaining of dysuria. MENTAL STATUS EXAMINATION: An elderly female, who looks stated age, alert with periods of confusion. Mental status seems to be waxing and waning. Affect is restricted to flat. Speech is slow, somewhat hypophonic. Mood is dysphoric. Thought process is confused off and on. Thought content, no overt paranoia or hallucinations. No suicidal or homicidal ideation. Attention and memory seem to be limited. Insight and judgment limited. Impulse control is fair at this time. LABORATORY DATA: Review of her labs, WBC is 5.6, platelets is 114. Her sodium is 140, creatinine is 0.6. Liver function tests are within normal limit. UA showed evidence of urinary tract infection. The patient also had a CAT scan of the head done as well as MRI did show no acute abnormalities. IMPRESSION: Delirium, metabolic encephalopathy secondary to urinary tract infection as well as possible drug-induced from the medications for Parkinson's. PLAN AND RECOMMENDATIONS: The patient is seen, meds reviewed, continue present management, continue antibiotics as ordered. For now, the patient is manageable. We will hold of any psych meds for now as the patient is redirectable. She is not having any florid psychotic symptoms and the patient is manageable currently as stated. We will hold off any psych meds for now. Continue treatment plan as outlined. Patricio Maciel MD MTDD
[2016-12-15 06:51] LABS: BASO % 0.5 % (0.0-2.0); EOS % 0.6 % (0.0-4.0); LYMPH # 0.8 K/uL (1.0-4.3); LYMPH % 15.9 % (20.0-40.0); MEAN CORPUSCULAR HEMOGLOBIN 30.9 pg (27.0-31.0); MEAN CORPUSCULAR HGB CONC 32.9 g/dL (33.0-37.0); MEAN PLATELET VOLUME 10.3 fL (7.2-11.7); MONO # 0.4 K/uL (0.0-0.8); MONO % 8.8 % (0.0-10.0); NRBC % 0.4 % (0.0-2.0); RED CELL DISTRIBUTION WIDTH 19.9 % (11.5-14.5); WHITE BLOOD COUNT 4.8 K/uL (4.8-10.8)
[2016-12-15 07:47] LABS: CHLORIDE 109 mmol/L (98-107); POTASSIUM 4.2 mmol/L (3.6-5.2); SODIUM 135 mmol/L (132-148)
[2016-12-15 07:49] LABS: ALB/GLOB RATIO 1.4 (1.0-2.1); ALKALINE PHOSPHATASE 64 U/L (38-126); AST/SGOT 25 U/L (14-36); BILIRUBIN,TOTAL 2.3 mg/dL (0.2-1.3); CARBON DIOXIDE 16 mmol/L (22-30); GFR AFRICAN-AMERICAN > 60; TOTAL PROTEIN 5.1 g/dL (6.3-8.3)
[2016-12-15 07:50] LABS: ALT/SGPT 30 U/L (9-52); BLOOD UREA NITROGEN 28 mg/dL (7-17); CALCIUM 8.1 mg/dl (8.6-10.4); GLUCOSE,RANDOM 87 mg/dL (65-105)
[2016-12-15] MEDS: Carbidopa/Levodopa 25/100 CR PO SCH (09:43)
[2016-12-15] MEDS: AMIKACIN SULFATE IVPB SCH (14:56)
[2016-12-15] MEDS: SODIUM CHLORIDE 0.9% IVPB SCH (14:56)
--- NOTE | 2016-12-15 16:12 | CP.PCM.PN ---
Subjective - Date & Time of Evaluation Date of Evaluation: 12/15/16 Time of Evaluation: 04:05 - Subjective Subjective: Awake. More responsive.Patient still not eating or drinking. On Iv Fluids. Tachycardic. BP on the low side so lasix, spironolactone and moroprolol could not be given. Objective - Vital Signs/Intake and Output Vital Signs (last 24 hours): Temp Pulse Resp BP Pulse Ox 98.1 F 120 H 20 99/65 L 98 12/15/16 07:00 12/15/16 07:00 12/15/16 07:00 12/15/16 10:00 12/15/16 07:00 Intake and Output: 12/15/16 12/15/16 06:59 18:59 Intake Total 650 Output Total 450 Balance 200 - Medications Medications: Current Medications Carbidopa/Levodopa (Sinemet) 1 tab PO QID [facility] Last Admin: 12/15/16 14:15 Dose: Not Given Docusate Sodium (Colace) 100 mg PO TID [facility] Last Admin: 12/15/16 14:14 Dose: Not Given Entacapone (Comtan) 200 mg PO ACBD [facility] Last Admin: 12/15/16 09:43 Dose: 200 mg Furosemide (Lasix) 20 mg PO DAILY [facility] Last Admin: 12/15/16 10:00 Dose: Not Given Amikacin Sulfate 350 mg/ (Sodium Chloride) 251.4 mls @ 250 mls/hr IVPB Q24H [facility] Last Admin: 12/15/16 14:56 Dose: 250 mls/hr Imipenem/Cilastatin Sodium 500 (mg/ Sodium Chloride) 100 mls @ 100 mls/hr IVPB Q6H [facility] Last Admin: 12/15/16 13:32 Dose: 100 mls/hr Metoprolol Tartrate (Lopressor) 12.5 mg PO BID [facility] Last Admin: 12/15/16 14:14 Dose: Not Given Polyethylene Glycol (Miralax) 17 gm PO Q8H PRN PRN Reason: Constipation Spironolactone (Aldactone) 25 mg PO DAILY [facility] Last Admin: 12/15/16 10:00 Dose: Not Given - Labs Labs: 12/15/16 06:44 12/15/16 06:44 PT 16.7 SECONDS (9.7-12.2) H 12/11/16 13:34 INR 1.5 12/11/16 13:34 APTT 30 SECONDS (21-34) 12/11/16 13:34 - Constitutional Appears: No Acute Distress, Chronically Ill - Head Exam Head Exam: ATRAUMATIC, NORMAL INSPECTION, NORMOCEPHALIC - Eye Exam Pupil Exam: PERRL - ENT Exam ENT Exam: Mucous Membranes Dry - Neck Exam Neck Exam: Full ROM - Respiratory Exam Respiratory Exam: Clear to Ausculation Bilateral, NORMAL BREATHING PATTERN - Cardiovascular Exam Cardiovascular Exam: Tachycardia, REGULAR RHYTHM, +S1, +S2 - GI/Abdominal Exam GI & Abdominal Exam: Soft - Rectal Exam Rectal Exam: Deferred - Back Exam Back Exam: NORMAL INSPECTION - Neurological Exam Neurological Exam: Altered, Awake - Psychiatric Exam Psychiatric exam: Anxious, Depressed - Skin Skin Exam: Dry, Intact Assessment and Plan (1) Altered mental status Status: Acute (2) Sepsis Status: Acute (3) UTI (urinary tract infection) Status: Acute (4) History of B-cell lymphoma Status: Chronic (5) Parkinson disease Status: Chronic (6) CHF (congestive heart failure) Status: Chronic (7) Congestive cardiomyopathy Status: Chronic - Assessment and Plan (Free Text) Plan: Plan: ABG stat Continue IV antibiotics. IV fluids PEG if patient continues to not eating or drinking.
[2016-12-15 16:32] LABS: DRAW SITE RB
--- NOTE | 2016-12-15 17:00 | CP.PCM.PN ---
Subjective - Date & Time of Evaluation Date of Evaluation: 12/15/16 Time of Evaluation: 14:30 - Subjective Subjective: patient seen and examined. Mental status improving But still that he feels with poor appetite Persistent tachycardia Afebrile Normal anion gap acidosis Escherichia coli in the urine and blood Lactate level is improving Objective - Vital Signs/Intake and Output Vital Signs (last 24 hours): Temp Pulse Resp BP Pulse Ox 98.1 F 120 H 20 99/65 L 98 12/15/16 07:00 12/15/16 07:00 12/15/16 07:00 12/15/16 10:00 12/15/16 07:00 Intake and Output: 12/15/16 12/15/16 06:59 18:59 Intake Total 650 830 Output Total 450 200 Balance 200 630 - Medications Medications: Current Medications Carbidopa/Levodopa (Sinemet) 1 tab PO QID [facility] Last Admin: 12/15/16 14:15 Dose: Not Given Docusate Sodium (Colace) 100 mg PO TID [facility] Last Admin: 12/15/16 14:14 Dose: Not Given Entacapone (Comtan) 200 mg PO ACBD [facility] Last Admin: 12/15/16 09:43 Dose: 200 mg Furosemide (Lasix) 20 mg PO DAILY [facility] Last Admin: 12/15/16 10:00 Dose: Not Given Amikacin Sulfate 350 mg/ (Sodium Chloride) 251.4 mls @ 250 mls/hr IVPB Q24H [facility] Last Admin: 12/15/16 14:56 Dose: 250 mls/hr Imipenem/Cilastatin Sodium 500 (mg/ Sodium Chloride) 100 mls @ 100 mls/hr IVPB Q6H [facility] Last Admin: 12/15/16 13:32 Dose: 100 mls/hr Metoprolol Tartrate (Lopressor) 12.5 mg PO BID [facility] Last Admin: 12/15/16 14:14 Dose: Not Given Polyethylene Glycol (Miralax) 17 gm PO Q8H PRN PRN Reason: Constipation Spironolactone (Aldactone) 25 mg PO DAILY [facility] Last Admin: 12/15/16 10:00 Dose: Not Given - Labs Labs: 12/15/16 06:44 12/15/16 06:44 PT 16.7 SECONDS (9.7-12.2) H 12/11/16 13:34 INR 1.5 12/11/16 13:34 APTT 30 SECONDS (21-34) 12/11/16 13:34 - Head Exam Head Exam: ATRAUMATIC - Eye Exam Eye Exam: Normal appearance - ENT Exam ENT Exam: Normal Exam - Neck Exam Neck Exam: Normal Inspection - Respiratory Exam Respiratory Exam: Clear to Ausculation Bilateral - Cardiovascular Exam Cardiovascular Exam: Tachycardia, REGULAR RHYTHM - GI/Abdominal Exam GI & Abdominal Exam: Soft, Normal Bowel Sounds - Neurological Exam Neurological Exam: Awake Assessment and Plan (1) Sepsis Assessment & Plan: Escherichia coli sepsis secondary to uterine tract infect Continue antibiotics Continue IV fluids Monitor lactate level Consider NG tube feeding Status: Acute (2) Parkinson disease Status: Chronic (3) Congestive cardiomyopathy Status: Chronic (4) History of B-cell lymphoma Status: Chronic
[2016-12-15] MEDS: Dextrose 5%/0.45% NS 1,000 ML IV SCH (18:55)
--- NOTE | 2016-12-15 20:13 | CP.PCM.PN ---
Subjective - Date & Time of Evaluation Date of Evaluation: 12/15/16 Time of Evaluation: 20:12 - Subjective Subjective: CHIEF COMPLAINTS TODAY : afebrile, BLOOD PRESSURE ON THE LOW SIDE Weak, appetite poor As per RN patient having loose stools. BLOOD CULTURE +VE 2:2 SETS ESBL +VE ESCHERICHIA COLI URINE CULTURE +VE ESBL E. COLI S-Primaxin/ amikacin R- CEFEPIME ROS..on observation only HEENT : N. Resp : No SOB wheezing, cough Cardio : No CP, PND orthopnea GI : No abd. Pain, n/v [employer] : No headache , focal deficit. Musculoskel : N Ext. : Pedal pulses intact, no edema or calf pain Derm : N Psych : N. PE. Pt. is more awake , in no distress. V.S As noted in the chart Head ,ear nose,throat and eyes : Normal. Neck : Supple with normal carotids. Lungs: Clear air entry. Heart : S1 & S2 normal .TACHYCARDIC . No murmur. Abd : Soft non tender with normal bowel sounds. Neuro : Moves all ext. with no localized deficit. Ext : No edema with intact pulses. Neg. calf tenderness Derm : No rashes or decubitus ulcer. Radiology/Labs . MRI of the brain NEGATIVE. See full report CT HEAD UNREMARKABLE. renal function stable. Asssessment : GRAM-NEGATIVE SEPSIS +VE ESBL +VE E. COLI 2:2 SETS source of sepsis most likely vs GI R/O BACTERIAL ENDOCARDITIS. SEPSIS SYNDROME UROSEPSIS. CHF BY HISTORY HISTORY OF B CELL- LYMPHOMA ( IN REMISSION ) PARKINSONISM. Plan : 2 D ECHO R/O BACTERIAL ENDOCARDITIS. STOOLS FOR OCCULT BLOOD. stools for C. difficile toxin CONTINUE IV PRIMAXIN 500 MG EVERY 6 HOURLY .12/13/16. iNFUSE SLOWLY OVER 30MIN WATCH FOR SEIZURES PATIENT GOT 1 DOSE OF AMIKACIN 500 MG ON 12/11/16. DISCONTINUE iv AMIKACIN 350 MG DAILY -DAY4 FOLLOW-UP repeat blood cultures . fOLLOW-UP RENAL FUNCTIONS. Objective - Vital Signs/Intake and Output Vital Signs (last 24 hours): Temp Pulse Resp BP Pulse Ox 98.3 F 129 H 18 112/79 99 12/15/16 15:21 12/15/16 15:21 12/15/16 15:21 12/15/16 15:21 12/15/16 15:21 Intake and Output: 12/15/16 12/16/16 18:59 06:59 Intake Total 830 Output Total 200 Balance 630 - Medications Medications: Current Medications Carbidopa/Levodopa (Sinemet) 1 tab PO QID [facility] Last Admin: 12/15/16 18:58 Dose: Not Given Docusate Sodium (Colace) 100 mg PO TID [facility] Last Admin: 12/15/16 18:41 Dose: 100 mg Entacapone (Comtan) 200 mg PO ACBD [facility] Last Admin: 12/15/16 18:57 Dose: Not Given Furosemide (Lasix) 20 mg PO DAILY [facility] Last Admin: 12/15/16 10:00 Dose: Not Given Amikacin Sulfate 350 mg/ (Sodium Chloride) 251.4 mls @ 250 mls/hr IVPB Q24H [facility] Last Admin: 12/15/16 14:56 Dose: 250 mls/hr Imipenem/Cilastatin Sodium 500 (mg/ Sodium Chloride) 100 mls @ 100 mls/hr IVPB Q6H [facility] Last Admin: 12/15/16 19:41 Dose: 100 mls/hr Metoprolol Tartrate (Lopressor) 12.5 mg PO BID [facility] Last Admin: 12/15/16 18:57 Dose: Not Given Polyethylene Glycol (Miralax) 17 gm PO Q8H PRN PRN Reason: Constipation Spironolactone (Aldactone) 25 mg PO DAILY [facility] Last Admin: 12/15/16 10:00 Dose: Not Given - Labs Labs: 12/15/16 06:44 12/15/16 06:44 PT 16.7 SECONDS (9.7-12.2) H 12/11/16 13:34 INR 1.5 12/11/16 13:34 APTT 30 SECONDS (21-34) 12/11/16 13:34 Assessment and Plan (1) Altered mental status Status: Acute (2) Sepsis Status: Acute (3) UTI (urinary tract infection) Status: Acute (4) CHF (congestive heart failure) Status: Chronic (5) History of B-cell lymphoma Status: Chronic (6) Parkinson disease Status: Chronic
--- NOTE | 2016-12-15 21:50 | CP.PCM.PN ---
Subjective - Date & Time of Evaluation Date of Evaluation: 12/15/16 Time of Evaluation: 18:30 - Subjective Subjective: Patient is more alert, but still with poor appetite. Had diarrhea x3 today. Stools for C. Difficile ordered. Appears to be in no respiratory diffficulty. Urine concenttrated. Still tachycardic. Will hold diuretics and continue IVF. Objective - Vital Signs/Intake and Output Vital Signs (last 24 hours): Temp Pulse Resp BP Pulse Ox 98.3 F 129 H 18 112/79 99 12/15/16 15:21 12/15/16 15:21 12/15/16 15:21 12/15/16 15:21 12/15/16 15:21 Intake and Output: 12/15/16 12/16/16 18:59 06:59 Intake Total 830 Output Total 200 Balance 630 - Medications Medications: Current Medications Carbidopa/Levodopa (Sinemet) 1 tab PO QID [facility] Last Admin: 12/15/16 18:58 Dose: Not Given Docusate Sodium (Colace) 100 mg PO TID [facility] Last Admin: 12/15/16 18:41 Dose: 100 mg Entacapone (Comtan) 200 mg PO ACBD [facility] Last Admin: 12/15/16 18:57 Dose: Not Given Furosemide (Lasix) 20 mg PO DAILY [facility] Last Admin: 12/15/16 10:00 Dose: Not Given Amikacin Sulfate 350 mg/ (Sodium Chloride) 251.4 mls @ 250 mls/hr IVPB Q24H [facility] Last Admin: 12/15/16 14:56 Dose: 250 mls/hr Imipenem/Cilastatin Sodium 500 (mg/ Sodium Chloride) 100 mls @ 100 mls/hr IVPB Q6H [facility] Last Admin: 12/15/16 19:41 Dose: 100 mls/hr Metoprolol Tartrate (Lopressor) 12.5 mg PO BID [facility] Last Admin: 12/15/16 18:57 Dose: Not Given Polyethylene Glycol (Miralax) 17 gm PO Q8H PRN PRN Reason: Constipation Spironolactone (Aldactone) 25 mg PO DAILY [facility] Last Admin: 12/15/16 10:00 Dose: Not Given - Labs Labs: 12/15/16 06:44 12/15/16 06:44 PT 16.7 SECONDS (9.7-12.2) H 12/11/16 13:34 INR 1.5 12/11/16 13:34 APTT 30 SECONDS (21-34) 12/11/16 13:34 - Constitutional Appears: No Acute Distress, Chronically Ill - Head Exam Head Exam: NORMAL INSPECTION - Eye Exam Eye Exam: Normal appearance - ENT Exam ENT Exam: Normal Exam - Neck Exam Neck Exam: Normal Inspection - Respiratory Exam Respiratory Exam: Clear to Ausculation Bilateral, NORMAL BREATHING PATTERN - Cardiovascular Exam Cardiovascular Exam: REGULAR RHYTHM - GI/Abdominal Exam GI & Abdominal Exam: Soft, Normal Bowel Sounds - Rectal Exam Rectal Exam: Deferred - Extremities Exam Extremities Exam: Normal Inspection - Back Exam Back Exam: NORMAL INSPECTION - Neurological Exam Additional comments: Patient arousable. - Psychiatric Exam Psychiatric exam: Flat Affect - Skin Skin Exam: Dry, Intact, Normal Color Assessment and Plan (1) Altered mental status Status: Acute (2) Parkinson disease Status: Chronic (3) UTI (urinary tract infection) Assessment & Plan: Blood culturre grew E. Coli. To continue IV antibiotics as per Dr Prudence Lynn. Status: Acute (4) Non-ischemic cardiomyopathy Assessment & Plan: So far stable. Status: Chronic
[2016-12-16 08:59] LABS: CHLORIDE 110 mmol/L (98-107)
[2016-12-16 09:00] LABS: SODIUM 138 mmol/L (132-148)
[2016-12-16 09:02] LABS: AST/SGOT 27 U/L (14-36); BILIRUBIN,TOTAL 2.3 mg/dL (0.2-1.3); CARBON DIOXIDE 19 mmol/L (22-30); GFR AFRICAN-AMERICAN > 60
[2016-12-16 09:03] LABS: ALKALINE PHOSPHATASE 68 U/L (38-126); ALT/SGPT 39 U/L (9-52); BLOOD UREA NITROGEN 26 mg/dL (7-17); CALCIUM 8.6 mg/dl (8.6-10.4); GLUCOSE,RANDOM 86 mg/dL (65-105); TOTAL PROTEIN 5.1 g/dL (6.3-8.3)
[2016-12-16 09:04] LABS: ALB/GLOB RATIO 1.6 (1.0-2.1)
--- NOTE | 2016-12-16 10:49 | CP.PCM.PN ---
Subjective - Date & Time of Evaluation Date of Evaluation: 12/16/16 Time of Evaluation: 10:45 - Subjective Subjective: Afebrile. Patient will not take her medications at all. Will not open her mouth. Intake is only 1250 / 24 hours. Output had decreased quite a bit to 150/24 hours and is concentrated. Patient' BP is still in he mid 90's. Diuretics can not be given due to the low BP. Creatinine is normal GFR is above 60. Objective - Vital Signs/Intake and Output Vital Signs (last 24 hours): Temp Pulse Resp BP Pulse Ox 97.6 F 113 H 20 95/73 L 100 12/16/16 08:32 12/16/16 08:32 12/16/16 08:32 12/16/16 08:32 12/16/16 08:32 Intake and Output: 12/16/16 12/16/16 06:59 18:59 Intake Total 625 Output Total 150 Balance 475 - Medications Medications: Current Medications Carbidopa/Levodopa (Sinemet) [address] [facility] Last Admin: 12/15/16 23:03 Dose: Not Given Docusate Sodium (Colace) [address] [facility] Last Admin: 12/15/16 18:41 Dose: 100 mg Entacapone (Comtan) [address] [facility] Last Admin: 12/15/16 18:57 Dose: Not Given Furosemide (Lasix) [address] [facility] Last Admin: 12/15/16 10:00 Dose: Not Given Imipenem/Cilastatin Sodium 500 (mg/ Sodium Chloride) 100 mls @ 100 mls/hr IVPB Q6H [facility] Last Admin: 12/16/16 06:26 Dose: 100 mls/hr Metoprolol Tartrate (Lopressor) 12.[address] [facility] Last Admin: 12/15/16 18:57 Dose: Not Given Polyethylene Glycol (Miralax) 17 gm PO Q8H PRN PRN Reason: Constipation Spironolactone (Aldactone) [address] [facility] Last Admin: 12/15/16 10:00 Dose: Not Given - Labs Labs: 12/15/16 06:44 12/16/16 08:20 PT 16.7 SECONDS (9.7-12.2) H 12/11/16 13:34 INR 1.5 10/17/17 13:34 APTT 30 SECONDS (21-34) 12/11/16 13:34 - Constitutional Appears: No Acute Distress, Chronically Ill - Eye Exam Pupil Exam: PERRL - ENT Exam ENT Exam: Mucous Membranes Dry - Neck Exam Neck Exam: Normal Inspection - Respiratory Exam Respiratory Exam: Clear to Ausculation Bilateral, NORMAL BREATHING PATTERN - Cardiovascular Exam Cardiovascular Exam: Tachycardia, +S1, +S2 - GI/Abdominal Exam GI & Abdominal Exam: Soft, Normal Bowel Sounds - Rectal Exam Rectal Exam: Deferred - Extremities Exam Extremities Exam: Normal Inspection - Back Exam Back Exam: NORMAL INSPECTION - Neurological Exam Neurological Exam: Altered, Awake - Psychiatric Exam Psychiatric exam: Depressed - Skin Skin Exam: Dry, Intact, Warm Assessment and Plan (1) Altered mental status Status: Acute (2) Sepsis Status: Acute (3) UTI (urinary tract infection) Status: Acute (4) History of B-cell lymphoma Status: Chronic (5) Parkinson disease Status: Chronic (6) CHF (congestive heart failure) Status: Chronic (7) Congestive cardiomyopathy Status: Chronic - Assessment and Plan (Free Text) Plan: Status---Acute Plan: Continue IV fluids for now. Continue IV antibiotics. Will try to increase IV fluds to 100/hr and give a dose of Lasix 20 mgm., if jamal with DR> Rekha.
[2016-12-16] MEDS: Dextrose 5%/0.45% NS 1,000 ML IV SCH (12:50)
--- NOTE | 2016-12-16 14:40 | PN ---
DATE: 12/16/2016 SUBJECTIVE: The patient is seen. The patient is more alert today and engageable, but still reluctant to take her medications according to her family member who was with her. The patient has been eating little by little. The patient is complaining of pain, but still has problems taking her medications for Parkinson. The patient is currently being treated for urinary tract infection. PHYSICAL EXAMINATION: VITAL SIGNS: Temperature 97.6, pulse rate 113, blood pressure 95/70, respirations 20, and oxygen saturation is 100%. GENERAL: The patient is more alert, verbal, still with periods of confusion, seen in her room with a family member trying at this time to feed her. SKIN: No diaphoresis. HEENT: No headache or dizziness. NECK: Supple. RESPIRATORY: No dyspnea. CARDIOVASCULAR: No chest pain. GASTROINTESTINAL: Appetite is still poor. No nausea or vomiting. EXTREMITIES: The patient is moving her extremities, but she is bradykinetic. MUSCULOSKELETAL: Feels weak. NEUROLOGIC: Alert with periods of confusion, but seems to be better. MENTAL STATUS EXAMINATION: Elderly female, who looks her age. Still with periods of confusion. Oriented to place and person. Affect is flat. Speech is hypophonic, slow. Mood is dysphoric, seems depressed. Thought process confused at times. Thought content, no overt psychosis. No suicidal or homicidal ideation. Attention and memory seems to be limited. Insight and judgment limited. Impulse control is fair at this time. IMPRESSION: Delirium, metabolic encephalopathy secondary to urinary tract infection versus drug induced and history of Parkinson's disease. RECOMMENDATIONS: The patient is seen. Medications reviewed. We will continue present management. For now, we will keep the patient off any psych medications. Continue treatment plan as outlined. Continue antibiotics as ordered. If the patient continues to deteriorate, we will have p.o. intake, the patient may benefit from PEG tube. She is not complaining of problem swallowing at this time, but she has no appetite and also reluctant to take her Parkinson's medications. Compliance to take her Parkinson's medications were enforced with the patient, so her Parkinson do not deteriorate. Patricio Maciel MD
--- NOTE | 2016-12-16 20:36 | PN ---
DATE: 12/15/2016 SUBJECTIVE: The patient is seen. The patient was noted to be very weak, still with periods of confusion, refusing to eat or drink despite encouragement and also reluctant to take her meds. She is not agitated at this time. The patient denies psych meds, but again encouraged to eat especially that she is refusing to take at times her Parkinson meds and according to one of her family visitors, the patient is probably swallowing. The patient can swallow, but she needs to take her Parkinson medication faithfully. PHYSICAL EXAMINATION VITAL SIGNS: Temperature is 98.1, pulse rate is 120, blood pressure 99/65, respirations 20, oxygen saturations 98%. GENERAL: The patient is currently not taking her psychiatric medications. The patient is alert, but feels very weak with periods of confusion, seen in her room. SKIN: No diaphoresis. HEENT: No headache or dizziness. NECK: Supple. RESPIRATORY: No dyspnea. CARDIOVASCULAR: No chest pain. GASTROINTESTINAL: The patient has very poor appetite. No nausea, no vomiting. EXTREMITIES: The patient is moving extremities, is still bradykinetic. MUSCULOSKELETAL: Feels weak. NEUROLOGIC: Alert with periods of confusion. GENITOURINARY: Not complaining of dysuria or hematuria. MENTAL STATUS EXAMINATION: A frail looking elderly female who looks stated age, oriented to place and person. Speech is slow, hypophonic. Affect is restricted to flat. Mood is depressed, dysphoric. Thought process, confused at times. Thought content, the patient is refusing to eat or take medicines even if encouraged by staff. No overt paranoia. No suicidal or homicidal ideation. Attention and memory seems to be impaired. Insight and judgement impaired. Impulse control is fair at this time. IMPRESSION: Delirium, metabolic encephalopathy secondary to the urinary tract infection versus drug-induced. PLAN AND RECOMMENDATIONS: The patient is seen, medications reviewed, continue present management, continue antibiotics as ordered. Encouraged the patient to eat. The patient is followed by Dr. Lynn, Infectious Disease, for her UTI. For now, we will hold off any psych meds. Patricio Maciel MD MTDD
[2016-12-17 09:17] LABS: CHLORIDE 111 mmol/L (98-107); POTASSIUM 4.1 mmol/L (3.6-5.2); SODIUM 138 mmol/L (132-148)
[2016-12-17 09:19] LABS: GFR AFRICAN-AMERICAN > 60
[2016-12-17 09:20] LABS: BLOOD UREA NITROGEN 25 mg/dL (7-17); CALCIUM 8.6 mg/dl (8.6-10.4); CARBON DIOXIDE 18 mmol/L (22-30); GLUCOSE,RANDOM 98 mg/dL (65-105)
--- NOTE | 2016-12-17 10:45 | CP.PCM.PN ---
<Mirta Armstrong - Last Filed: 12/17/16 11:55> Subjective - Date & Time of Evaluation Date of Evaluation: 12/17/16 Time of Evaluation: 08:00 - Subjective Subjective: Pulm progress note for Dr. Lyles: Patient seen and examined at bedside this morning. Patient is not verbally communicating but is awake. Per nursing she has poor appetite and is refusing meds. Remains afebrile but with lower BP and remains tachycardic. Saturating well on NC. Patient is septic with E coli in the urine and blood. Objective - Vital Signs/Intake and Output Vital Signs (last 24 hours): Temp Pulse Resp BP Pulse Ox 98.2 F 102 H 18 98/53 L 98 12/17/16 07:50 12/17/16 07:50 12/17/16 07:50 12/17/16 09:21 12/17/16 07:50 Intake and Output: 12/17/16 12/17/16 06:59 18:59 Intake Total 890 Output Total 250 Balance 640 - Medications Medications: Current Medications Carbidopa/Levodopa (Sinemet) 1 tab PO QID [facility] Last Admin: 12/17/16 09:22 Dose: 1 tab Docusate Sodium (Colace) 100 mg PO TID [facility] Last Admin: 12/17/16 09:20 Dose: 100 mg Entacapone (Comtan) 200 mg PO ACBD [facility] Last Admin: 12/17/16 09:20 Dose: 200 mg Furosemide (Lasix) 20 mg PO DAILY [facility] Last Admin: 12/17/16 09:21 Dose: Not Given Imipenem/Cilastatin Sodium 500 (mg/ Sodium Chloride) 100 mls @ 100 mls/hr IVPB Q6H [facility] Last Admin: 12/17/16 05:56 Dose: 100 mls/hr Metoprolol Tartrate (Lopressor) 12.5 mg PO BID [facility] Last Admin: 12/17/16 09:21 Dose: Not Given Polyethylene Glycol (Miralax) 17 gm PO Q8H PRN PRN Reason: Constipation Spironolactone (Aldactone) 25 mg PO DAILY [facility] Last Admin: 12/17/16 09:20 Dose: Not Given - Labs Labs: 12/15/16 06:44 12/17/16 08:37 PT 16.7 SECONDS (9.7-12.2) H 12/11/16 13:34 INR 1.5 12/11/16 13:34 APTT 30 SECONDS (21-34) 12/11/16 13:34 - Constitutional Appears: No Acute Distress, Chronically Ill - Head Exam Head Exam: ATRAUMATIC - Respiratory Exam Respiratory Exam: Clear to Ausculation Bilateral, NORMAL BREATHING PATTERN Additional comments: on NC - GI/Abdominal Exam GI & Abdominal Exam: Soft, Normal Bowel Sounds - Neurological Exam Neurological Exam: Awake. absent: Oriented x3 - Psychiatric Exam Psychiatric exam: Normal Affect, Normal Mood Assessment and Plan (1) Sepsis Assessment & Plan: Escherichia coli sepsis secondary to uterine tract infect Continue antibiotics Continue IV fluids Monitor lactate level Consider NG tube feeding Chest X ray no active disease on 12/11 - f/u repeat chest Xray Status: Acute (2) Congestive cardiomyopathy Status: Chronic (3) Parkinson disease Status: Chronic (4) History of B-cell lymphoma Status: Chronic <Yordan Lyles S - Last Filed: 12/17/16 13:23> Objective - Vital Signs/Intake and Output Vital Signs (last 24 hours): Temp Pulse Resp BP Pulse Ox 98.2 F 102 H 18 98/53 L 98 12/17/16 07:50 12/17/16 07:50 12/17/16 07:50 12/17/16 09:21 12/17/16 07:50 Intake and Output: 12/17/16 12/17/16 06:59 18:59 Intake Total 890 Output Total 250 Balance 640 - Medications Medications: Current Medications Carbidopa/Levodopa (Sinemet) 1 tab PO QID [facility] Last Admin: 12/17/16 09:22 Dose: 1 tab Docusate Sodium (Colace) 100 mg PO TID [facility] Last Admin: 12/17/16 09:20 Dose: 100 mg Entacapone (Comtan) 200 mg PO ACBD [facility] Last Admin: 12/17/16 09:20 Dose: 200 mg Furosemide (Lasix) 20 mg PO DAILY [facility] Last Admin: 12/17/16 09:21 Dose: Not Given Imipenem/Cilastatin Sodium 500 (mg/ Sodium Chloride) 100 mls @ 100 mls/hr IVPB Q6H [facility] Last Admin: 12/17/16 13:03 Dose: 100 mls/hr Metoprolol Tartrate (Lopressor) 12.5 mg PO BID [facility] Last Admin: 12/17/16 09:21 Dose: Not Given Polyethylene Glycol (Miralax) 17 gm PO Q8H PRN PRN Reason: Constipation Spironolactone (Aldactone) 25 mg PO DAILY [facility] Last Admin: 12/17/16 09:20 Dose: Not Given - Labs Labs: 12/15/16 06:44 12/17/16 08:37 PT 16.7 SECONDS (9.7-12.2) H 12/11/16 13:34 INR 1.5 12/11/16 13:34 APTT 30 SECONDS (21-34) 12/11/16 13:34 Assessment and Plan (1) Sepsis Status: Acute (2) Parkinson disease Status: Chronic (3) Congestive cardiomyopathy Status: Chronic (4) History of B-cell lymphoma Status: Chronic Attending/Attestation - Attestation I have personally seen and examined this patient.: Yes I have fully participated in the care of the patient.: Yes I have reviewed all pertinent clinical information, including history, physical exam and plan: Yes Notes (Text): 12/17/16 13:17 patient seen and examined Patient remains confused with poor appetite On and off shortness of breath Persistent tachycardia Afebrile Being treated for UTI Seen by cardiology Patient refusing meds
--- NOTE | 2016-12-17 13:36 | RAD ---
Chest x-ray single frontal view History: Shortness of breath. Comparison: 12/11/2016 Findings: Right chest wall port with tip extending to the cavoatrial junction. Moderate venous congestion with patchy bibasilar airspace opacities and small left pleural effusion. Right hilar prominence. Mild cardiomegaly. Calcification at the aortic knob. Impression: Right chest wall port with tip extending to the cavoatrial junction. Moderate venous congestion with patchy bibasilar airspace opacities and small left pleural effusion. Right hilar prominence. Mild cardiomegaly. Calcification at the aortic knob.
--- NOTE | 2016-12-17 14:13 | CP.PCM.PN ---
Subjective - Date & Time of Evaluation Date of Evaluation: 12/17/16 Time of Evaluation: 14:11 - Subjective Subjective: Patient awake, in no respiratory difficulty, answering questions adequately. Afebrile, slightly hypotensive but much less tachycardic. CXR today: right hiilar prominence. Drinks Ensure a little. Objective - Vital Signs/Intake and Output Vital Signs (last 24 hours): Temp Pulse Resp BP Pulse Ox 98.2 F 102 H 18 98/53 L 98 12/17/16 07:50 12/17/16 07:50 12/17/16 07:50 12/17/16 09:21 12/17/16 07:50 Intake and Output: 12/17/16 12/17/16 06:59 18:59 Intake Total 890 Output Total 250 Balance 640 - Medications Medications: Current Medications Carbidopa/Levodopa (Sinemet) 1 tab PO QID [facility] Last Admin: 12/17/16 09:22 Dose: 1 tab Docusate Sodium (Colace) 100 mg PO TID [facility] Last Admin: 12/17/16 09:20 Dose: 100 mg Entacapone (Comtan) 200 mg PO ACBD [facility] Last Admin: 12/17/16 09:20 Dose: 200 mg Furosemide (Lasix) 20 mg PO DAILY [facility] Last Admin: 12/17/16 09:21 Dose: Not Given Imipenem/Cilastatin Sodium 500 (mg/ Sodium Chloride) 100 mls @ 100 mls/hr IVPB Q6H [facility] Last Admin: 12/17/16 13:03 Dose: 100 mls/hr Metoprolol Tartrate (Lopressor) 12.5 mg PO BID [facility] Last Admin: 12/17/16 09:21 Dose: Not Given Polyethylene Glycol (Miralax) 17 gm PO Q8H PRN PRN Reason: Constipation Spironolactone (Aldactone) 25 mg PO DAILY [facility] Last Admin: 12/17/16 09:20 Dose: Not Given - Labs Labs: 12/15/16 06:44 12/17/16 08:37 PT 16.7 SECONDS (9.7-12.2) H 12/11/16 13:34 INR 1.5 12/11/16 13:34 APTT 30 SECONDS (21-34) 12/11/16 13:34 - Constitutional Appears: No Acute Distress, Confused, Cachectic, Chronically Ill - Head Exam Head Exam: NORMAL INSPECTION - Eye Exam Eye Exam: Normal appearance - ENT Exam ENT Exam: Normal Exam - Respiratory Exam Additional comments: Few rhonchi heard at both bases. - Cardiovascular Exam Cardiovascular Exam: REGULAR RHYTHM Additional comments: No gallop. - GI/Abdominal Exam GI & Abdominal Exam: Soft, Normal Bowel Sounds - Rectal Exam Rectal Exam: Deferred - Back Exam Back Exam: NORMAL INSPECTION - Neurological Exam Neurological Exam: Alert, Awake, Oriented x3 - Psychiatric Exam Psychiatric exam: Anxious - Skin Skin Exam: Dry, Intact, Normal Color, Warm Assessment and Plan (1) Altered mental status Assessment & Plan: Improving slightly today. Status: Acute (2) Parkinson disease Status: Chronic (3) UTI (urinary tract infection) Assessment & Plan: E Coli in the urine and blood. To continue IV antibiotics as per Dr Sridhar Lynn. Status: Acute (4) Non-ischemic cardiomyopathy Assessment & Plan: Stable. Sinus tachycardia secondary to hypovolemia and infection. To continue IVF since the patient' s appetite is still very poor. Status: Chronic
--- NOTE | 2016-12-17 17:17 | PN ---
DATE: 12/17/2016 SUBJECTIVE: The patient seen. The patient is more or less verbal, but still feels weak. The patient seen with her brother. The patient has been drinking better fluids, but still has poor appetite. She, however, has been compliant with her Parkinson meds. PHYSICAL EXAMINATION VITAL SIGNS: Temperature is 98.2, pulse rate 102, blood pressure 98/52, respiration is 18, oxygen sat 98%. The patient has bouts of low blood pressure. REVIEW OF SYSTEMS: GENERAL: The patient is feeling weak, but alert. Seemed a little bit more responsive. SKIN: No diaphoresis. HEENT: No headache. No dizziness. NECK: Supple. RESPIRATORY: No dyspnea. CARDIOVASCULAR: No chest pain. GASTROINTESTINAL: The patient's appetite is still poor, but no nausea or vomiting, no abdominal pain. EXTREMITIES: The patient seems to be bradykinetic. MUSCULOSKELETAL: Feels weak. NEUROLOGIC: Alert with periods of confusion. GENITOURINARY: No dysuria. MENTAL STATUS EXAMINATION: Elderly female who looks her age, seen in her room, seen with her brother. Mood is dysphoric. Affect is restricted to flat. The patient is hypophonic. Thought process is confused at times. Thought content, no overt psychosis. No suicidal ideation. Attention and memory seem to be limited. Insight and judgement are limited. Impulse control is fair at this time. IMPRESSION: Delirium, metabolic encephalopathy secondary to urinary tract infection versus drug-induced, history of Parkinson disease. PLAN AND RECOMMENDATIONS: The patient is seen. Meds reviewed. Continue present management. The patient is currently receiving antibiotics for her urinary tract infection. The patient has very low blood pressure and also I will hold off any psychiatric medicines for now until the patient is more medically stable as her blood pressure might drop with drug interaction of psychiatric medications together with her nonpsychiatric medications. Patricio Maciel MD cc:
--- NOTE | 2016-12-17 22:59 | CP.PCM.PN ---
Subjective - Date & Time of Evaluation Date of Evaluation: 12/17/16 Time of Evaluation: 22:59 - Subjective Subjective: CHIEF COMPLAINTS TODAY : afebrile, MORE RESPONSIVE AWAKE, BP ON LOW SIDE. appetite poor BLOOD CULTURE 12/11/16 +VE 2:2 SETS ESBL +VE ESCHERICHIA COLI URINE CULTURE 12/11/16 +VE ESBL E. COLI S-Primaxin/ amikacin R- CEFEPIME ROS..on observation only HEENT : N. Resp : No SOB wheezing, cough Cardio : No CP, PND orthopnea GI : No abd. Pain, n/v [employer]OOKER : No headache , focal deficit. Musculoskel : N Ext. : Pedal pulses intact, no edema or calf pain Derm : N Psych : N. PE. Pt. is more awake , in no distress. V.S As noted in the chart Head ,ear nose,throat and eyes : Normal. Neck : Supple with normal carotids. Lungs: Clear air entry. Heart : S1 & S2 normal .TACHYCARDIC . No murmur. Abd : Soft non tender with normal bowel sounds. Neuro : Moves all ext. with no localized deficit. Ext : No edema with intact pulses. Neg. calf tenderness Derm : No rashes or decubitus ulcer. Radiology/Labs . MRI of the brain NEGATIVE. See full report CT HEAD UNREMARKABLE. renal function stable. CREATININE 0.7/bun 25 TODAY. 12/16/16 lftS BILI 2.3, TRANSAMINASES NORMAL. Asssessment : GRAM-NEGATIVE SEPSIS +VE ESBL +VE E. COLI 2:2 SETS source of sepsis most likely vs GI R/O BACTERIAL ENDOCARDITIS. SEPSIS SYNDROME UROSEPSIS. CHF BY HISTORY HISTORY OF B CELL- LYMPHOMA ( IN REMISSION ) PARKINSONISM. Plan : 2 D ECHO R/O BACTERIAL ENDOCARDITIS. STOOLS FOR OCCULT BLOOD. stools for C. difficile toxin CONTINUE IV PRIMAXIN 500 MG EVERY 6 HOURLY .12/13/16. off IV amikacin FOLLOW-UP repeat blood cultures . fOLLOW-UP RENAL FUNCTIONS. CBC with differential in a.m. Discussed with nichidi at the bedside. Objective - Vital Signs/Intake and Output Vital Signs (last 24 hours): Temp Pulse Resp BP Pulse Ox 98.1 F 119 H 20 103/70 100 12/17/16 15:50 12/17/16 15:50 12/17/16 15:50 12/17/16 15:50 12/17/16 15:50 Intake and Output: 12/17/16 12/18/16 18:59 06:59 Output Total 650 Balance -650 - Medications Medications: Current Medications Carbidopa/Levodopa (Sinemet) 1 tab PO QID [facility] Last Admin: 12/17/16 22:36 Dose: 1 tab Docusate Sodium (Colace) 100 mg PO TID [facility] Last Admin: 12/17/16 19:00 Dose: 100 mg Entacapone (Comtan) 200 mg PO ACBD [facility] Last Admin: 12/17/16 17:30 Dose: 200 mg Furosemide (Lasix) 20 mg PO DAILY [facility] Last Admin: 12/17/16 14:12 Dose: 20 mg Imipenem/Cilastatin Sodium 500 (mg/ Sodium Chloride) 100 mls @ 100 mls/hr IVPB Q6H [facility] Last Admin: 12/17/16 19:09 Dose: 100 mls/hr Metoprolol Tartrate (Lopressor) 12.5 mg PO BID [facility] Last Admin: 12/17/16 19:00 Dose: Not Given Polyethylene Glycol (Miralax) 17 gm PO Q8H PRN PRN Reason: Constipation Spironolactone (Aldactone) 25 mg PO DAILY [facility] Last Admin: 12/17/16 09:20 Dose: Not Given - Labs Labs: 12/15/16 06:44 12/17/16 08:37 PT 16.7 SECONDS (9.7-12.2) H 12/11/16 13:34 INR 1.5 12/11/16 13:34 APTT 30 SECONDS (21-34) 12/11/16 13:34 Assessment and Plan (1) Altered mental status Status: Acute (2) Sepsis Status: Acute (3) UTI (urinary tract infection) Status: Acute (4) CHF (congestive heart failure) Status: Chronic (5) History of B-cell lymphoma Status: Chronic (6) Parkinson disease Status: Chronic
[2016-12-18 13:08] LABS: RBC URINE 19 /hpf (0-3); URINE BACTERIA RARE (<OCC); URINE BILIRUBIN NEGATIVE (NEGATIVE); URINE BLOOD 1+ (NEGATIVE); URINE COLOR Amber (YELLOW); URINE GLUCOSE (UA) 1+ mg/dL (Normal); URINE HYALINE CAST >20 /lpf (0-2); URINE KETONE TRACE mg/dL (NEGATIVE); URINE LEUKOCYTE ESTERASE 3+ Leu/uL (Negative); URINE PROTEIN 1+ mg/dL (NEGATIVE); WBC URINE 181 /hpf (0-5)
--- NOTE | 2016-12-18 14:38 | CP.PCM.PN ---
<Mirta Armstrong - Last Filed: 12/18/16 14:35> Subjective - Date & Time of Evaluation Date of Evaluation: 12/18/16 Time of Evaluation: 08:00 - Subjective Subjective: Pulm progress note for Dr. Lyles: Patient seen and examined at bedside this morning. Patient had improved mental status and was able to communicate today. She denied chest pain, SOB< cough. She stated her breathing improved after the dose of lasix yesterday. Per nursing she has poor appetite and is refusing meds. Remains afebrile but with lower BP and remains tachycardic. Saturating well on NC. Patient is septic with E coli in the urine and blood. Objective - Vital Signs/Intake and Output Vital Signs (last 24 hours): Temp Pulse Resp BP Pulse Ox 97.5 F L 123 H 18 112/70 98 12/18/16 08:03 12/18/16 08:03 12/18/16 08:03 12/18/16 09:27 12/17/16 23:30 Intake and Output: 12/18/16 12/18/16 06:59 18:59 Intake Total 320 Output Total 1150 Balance -830 - Medications Medications: Current Medications Carbidopa/Levodopa (Sinemet) 1 tab PO QID [facility] Last Admin: 12/18/16 09:27 Dose: 1 tab Docusate Sodium (Colace) 100 mg PO TID [facility] Last Admin: 12/18/16 09:27 Dose: 100 mg Entacapone (Comtan) 200 mg PO ACBD [facility] Last Admin: 12/18/16 09:28 Dose: 200 mg Furosemide (Lasix) 20 mg PO DAILY [facility] Last Admin: 12/18/16 09:27 Dose: 20 mg Imipenem/Cilastatin Sodium 500 (mg/ Sodium Chloride) 100 mls @ 100 mls/hr IVPB Q6H [facility] Last Admin: 12/18/16 12:13 Dose: 100 mls/hr Metoprolol Tartrate (Lopressor) 12.5 mg PO BID [facility] Last Admin: 12/18/16 09:26 Dose: 12.5 mg Polyethylene Glycol (Miralax) 17 gm PO Q8H PRN PRN Reason: Constipation Spironolactone (Aldactone) 25 mg PO DAILY [facility] Last Admin: 12/18/16 09:28 Dose: 25 mg - Labs Labs: 12/15/16 06:44 12/17/16 08:37 PT 16.7 SECONDS (9.7-12.2) H 12/11/16 13:34 INR 1.5 12/11/16 13:34 APTT 30 SECONDS (21-34) 12/11/16 13:34 - Constitutional Appears: Non-toxic, No Acute Distress, Chronically Ill - Head Exam Head Exam: NORMAL INSPECTION - Respiratory Exam Respiratory Exam: Decreased Breath Sounds, Rales, NORMAL BREATHING PATTERN. absent: Accessory Muscle Use, Clear to Ausculation Bilateral, Respiratory Distress - Cardiovascular Exam Cardiovascular Exam: Tachycardia, REGULAR RHYTHM, +S1, +S2 - GI/Abdominal Exam GI & Abdominal Exam: Soft, Normal Bowel Sounds. absent: Distended, Firm, Guarding, Tenderness - Neurological Exam Neurological Exam: Alert, Awake - Psychiatric Exam Psychiatric exam: Normal Affect, Normal Mood Assessment and Plan (1) Sepsis Assessment & Plan: Escherichia coli sepsis secondary to uterine tract infect Continue antibiotics Continue IV fluids Monitor lactate level Consider NG tube feeding Chest Xray on 12/18 showed venous congestion, was given one dose of Lasix 20mg IV, breathing now improved Status: Acute (2) Congestive cardiomyopathy Status: Chronic (3) Parkinson disease Status: Chronic (4) History of B-cell lymphoma Status: Chronic <Yordan Lyles - Last Filed: 12/18/16 18:38> Objective - Vital Signs/Intake and Output Vital Signs (last 24 hours): Temp Pulse Resp BP Pulse Ox 98 F 120 H 20 106/60 98 12/18/16 16:00 12/18/16 16:00 12/18/16 16:00 12/18/16 16:00 12/18/16 16:00 Intake and Output: 12/18/16 12/18/16 06:59 18:59 Intake Total 380 800 Output Total 1150 350 Balance -770 450 - Medications Medications: Current Medications Carbidopa/Levodopa (Sinemet) 1 tab PO QID [facility] Last Admin: 12/18/16 18:31 Dose: 1 tab Docusate Sodium (Colace) 100 mg PO TID [facility] Last Admin: 12/18/16 18:31 Dose: 100 mg Entacapone (Comtan) 200 mg PO ACBD [facility] Last Admin: 12/18/16 18:31 Dose: 200 mg Furosemide (Lasix) 20 mg PO DAILY [facility] Last Admin: 12/18/16 09:27 Dose: 20 mg Imipenem/Cilastatin Sodium 500 (mg/ Sodium Chloride) 100 mls @ 100 mls/hr IVPB Q6H [facility] Last Admin: 12/18/16 18:31 Dose: 100 mls/hr Metoprolol Tartrate (Lopressor) 12.5 mg PO BID [facility] Last Admin: 12/18/16 18:32 Dose: Not Given Polyethylene Glycol (Miralax) 17 gm PO Q8H PRN PRN Reason: Constipation Spironolactone (Aldactone) 25 mg PO DAILY [facility] Last Admin: 12/18/16 09:28 Dose: 25 mg - Labs Labs: 12/15/16 06:44 12/17/16 08:37 PT 16.7 SECONDS (9.7-12.2) H 12/11/16 13:34 INR 1.5 12/11/16 13:34 APTT 30 SECONDS (21-34) 12/11/16 13:34 Assessment and Plan (1) Sepsis Status: Acute (2) Parkinson disease Status: Chronic (3) Congestive cardiomyopathy Status: Chronic (4) History of B-cell lymphoma Status: Chronic Attending/Attestation - Attestation I have personally seen and examined this patient.: Yes I have fully participated in the care of the patient.: Yes I have reviewed all pertinent clinical information, including history, physical exam and plan: Yes Notes (Text): 12/18/16 18:37 Patient seen and examined. Persistent tachycardia as patient is refusing metoprolol Patient is more awake and responsive Continue antibiotics
--- NOTE | 2016-12-18 16:59 | CP.PCM.PN ---
Subjective - Date & Time of Evaluation Date of Evaluation: 12/18/16 Time of Evaluation: 16:59 - Subjective Subjective: CHIEF COMPLAINTS TODAY : afebrile, MORE RESPONSIVE AWAKE, TALKATIVE. Appetite still poor. denies abdominal pain, chest pain. BLOOD CULTURE 12/11/16 +VE 2:2 SETS ESBL +VE ESCHERICHIA COLI URINE CULTURE 12/11/16 +VE ESBL E. COLI S-Primaxin/ amikacin R- CEFEPIME ROS.. HEENT : N. Resp : No SOB wheezing, cough Cardio : No CP, PND orthopnea GI : No abd. Pain, n/v [employer] : No headache , focal deficit. Musculoskel : N Ext. : Pedal pulses intact, no edema or calf pain Derm : N Psych : N. PE. Pt. is more awake , in no distress. V.S As noted in the chart Head ,ear nose,throat and eyes : Normal. Neck : Supple with normal carotids. Lungs: few basilar rales Heart : S1 & S2 normal .TACHYCARDIC . No murmur. Abd : Soft non tender with normal bowel sounds. Neuro : Moves all ext. with no localized deficit. Ext : No edema with intact pulses. Neg. calf tenderness Derm : No rashes or decubitus ulcer. Radiology/Labs . repeat UA noted 3+ urinary leukocytes, wbc's 181, many budding yeasts. Creatinine 0.7/BUN 25. MRI of the brain NEGATIVE. See full report CT HEAD UNREMARKABLE. renal function stable. CREATININE 0.7/bun 25 TODAY. 12/16/16 lftS BILI 2.3, TRANSAMINASES NORMAL. Asssessment : GRAM-NEGATIVE SEPSIS +VE ESBL +VE E. COLI 2:2 SETS source of sepsis most likely vs GI SEPSIS SYNDROME UROSEPSIS. CHF BY HISTORY HISTORY OF B CELL- LYMPHOMA ( IN REMISSION ) PARKINSONISM. Plan : 2 D ECHO R/O BACTERIAL ENDOCARDITIS. STOOLS FOR OCCULT BLOOD. stools for C. difficile toxin CONTINUE IV PRIMAXIN 500 MG EVERY 6 HOURLY .12/13/16. follow-up repeat urine cultures. FOLLOW-UP repeat blood cultures . fOLLOW-UP RENAL FUNCTIONS. CBC with differential in a.m. Discussed with niece at the bedside. Objective - Vital Signs/Intake and Output Vital Signs (last 24 hours): Temp Pulse Resp BP Pulse Ox 98 F 120 H 20 106/60 98 12/18/16 16:00 12/18/16 16:00 12/18/16 16:00 12/18/16 16:00 12/18/16 16:00 Intake and Output: 12/18/16 12/18/16 06:59 18:59 Intake Total 380 800 Output Total 1150 350 Balance -770 450 - Medications Medications: Current Medications Carbidopa/Levodopa (Sinemet) 1 tab PO QID [facility] Last Admin: 12/18/16 16:18 Dose: 1 tab Docusate Sodium (Colace) 100 mg PO TID [facility] Last Admin: 12/18/16 15:53 Dose: Not Given Entacapone (Comtan) 200 mg PO ACBD [facility] Last Admin: 12/18/16 09:28 Dose: 200 mg Furosemide (Lasix) 20 mg PO DAILY [facility] Last Admin: 12/18/16 09:27 Dose: 20 mg Imipenem/Cilastatin Sodium 500 (mg/ Sodium Chloride) 100 mls @ 100 mls/hr IVPB Q6H [facility] Last Admin: 12/18/16 12:13 Dose: 100 mls/hr Metoprolol Tartrate (Lopressor) 12.5 mg PO BID [facility] Last Admin: 12/18/16 09:26 Dose: 12.5 mg Polyethylene Glycol (Miralax) 17 gm PO Q8H PRN PRN Reason: Constipation Spironolactone (Aldactone) 25 mg PO DAILY [facility] Last Admin: 12/18/16 09:28 Dose: 25 mg - Labs Labs: 12/15/16 06:44 12/17/16 08:37 PT 16.7 SECONDS (9.7-12.2) H 12/11/16 13:34 INR 1.5 12/11/16 13:34 APTT 30 SECONDS (21-34) 12/11/16 13:34 Assessment and Plan (1) Altered mental status Status: Acute (2) Sepsis Status: Acute (3) UTI (urinary tract infection) Status: Acute (4) CHF (congestive heart failure) Status: Chronic (5) History of B-cell lymphoma Status: Chronic (6) Parkinson disease Status: Chronic
--- NOTE | 2016-12-18 23:31 | PN ---
DATE: 12/18/2016 SUBJECTIVE: The patient is seen today, is more alert, verbal, less confused. She states she took her medication; however, her appetite still poor. PHYSICAL EXAMINATION GENERAL: The patient is more alert, verbal, less confused and more engageable, seen in her room, she was complaining of pain on her lower extremities. VITAL SIGNS: Temperature 98, pulse is 120, blood pressure 106/60, respirations 20, and oxygen saturation is 98%. SKIN: No diaphoresis. HEENT: No headache or dizziness. NECK: Supple. RESPIRATORY: No dyspnea. CARDIOVASCULAR: No chest pain. GASTROINTESTINAL: No nausea or vomiting. EXTREMITIES: Complaining of pain. She is moving her extremities. NEUROLOGIC: Alert and oriented x2. Less confused. GENITOURINARY: No dysuria. MENTAL STATUS EXAMINATION: Elderly female who looks stated age, oriented x2. Mood is dysphoric. Affect is constricted. Speech is spontaneous. Thought process is less confused. Thought content, no overt hallucination. No paranoia. No suicidal ideation. Attention and memory seem to be limited. Insight and judgement are limited. Impulse control is fair at this time. IMPRESSION: Delirium, metabolic encephalopathy secondary to urinary tract infection versus drug-induced. PLAN AND RECOMMENDATIONS: The patient is seen, medications reviewed, continue present management, continue antibiotics as ordered. The patient is followed by Dr. Lynn for urosepsis. Continue treatment plans as outlined. Psych roberts, we will hold off any psych meds for now. Patricio Maciel MD
--- NOTE | 2016-12-18 23:50 | CP.PCM.PN ---
Subjective - Date & Time of Evaluation Date of Evaluation: 12/18/16 Time of Evaluation: 18:00 - Subjective Subjective: Patient more responsive, appetite improving, less tachycardic, in no respiratory distress. Objective - Vital Signs/Intake and Output Vital Signs (last 24 hours): Temp Pulse Resp BP Pulse Ox 98 F 120 H 20 106/60 98 12/18/16 16:00 12/18/16 16:00 12/18/16 16:00 12/18/16 16:00 12/18/16 16:00 Intake and Output: 12/18/16 12/19/16 18:59 06:59 Intake Total 800 100 Output Total 350 200 Balance 450 -100 - Medications Medications: Current Medications Carbidopa/Levodopa (Sinemet) 1 tab PO QID [facility] Last Admin: 12/18/16 21:22 Dose: 1 tab Docusate Sodium (Colace) 100 mg PO TID [facility] Last Admin: 12/18/16 18:31 Dose: 100 mg Entacapone (Comtan) 200 mg PO ACBD [facility] Last Admin: 12/18/16 18:31 Dose: 200 mg Furosemide (Lasix) 20 mg PO DAILY [facility] Last Admin: 12/18/16 09:27 Dose: 20 mg Imipenem/Cilastatin Sodium 500 (mg/ Sodium Chloride) 100 mls @ 100 mls/hr IVPB Q6H [facility] Last Admin: 12/18/16 18:31 Dose: 100 mls/hr Metoprolol Tartrate (Lopressor) 12.5 mg PO BID [facility] Last Admin: 12/18/16 18:32 Dose: Not Given Polyethylene Glycol (Miralax) 17 gm PO Q8H PRN PRN Reason: Constipation Spironolactone (Aldactone) 25 mg PO DAILY [facility] Last Admin: 12/18/16 09:28 Dose: 25 mg - Labs Labs: 12/15/16 06:44 12/17/16 08:37 PT 16.7 SECONDS (9.7-12.2) H 12/11/16 13:34 INR 1.5 12/11/16 13:34 APTT 30 SECONDS (21-34) 12/11/16 13:34 - Constitutional Appears: No Acute Distress, Chronically Ill - Head Exam Head Exam: NORMOCEPHALIC - Eye Exam Eye Exam: Normal appearance - ENT Exam ENT Exam: Normal Exam - Neck Exam Neck Exam: Normal Inspection - Respiratory Exam Additional comments: Few bibasilar rhochi heard. - Cardiovascular Exam Cardiovascular Exam: Tachycardia, REGULAR RHYTHM - GI/Abdominal Exam GI & Abdominal Exam: Soft, Normal Bowel Sounds - Rectal Exam Rectal Exam: Deferred - Extremities Exam Extremities Exam: Normal Inspection - Back Exam Back Exam: NORMAL INSPECTION - Neurological Exam Neurological Exam: Awake - Psychiatric Exam Psychiatric exam: Flat Affect - Skin Skin Exam: Dry, Intact, Normal Color, Warm Assessment and Plan (1) Altered mental status Assessment & Plan: More responsive. Status: Acute (2) Parkinson disease Status: Chronic (3) UTI (urinary tract infection) Assessment & Plan: To continue IV antibiotics as per Dr Sridhar Lynn. Status: Acute (4) Non-ischemic cardiomyopathy Assessment & Plan: Stable. Status: Chronic
[2016-12-19 07:34] LABS: BASO % 0.3 % (0.0-2.0); EOS % 0.6 % (0.0-4.0); HEMATOCRIT 36.2 % (34.0-47.0); LYMPH # 1.2 K/uL (1.0-4.3); MEAN CELL VOLUME 95.6 fL (81.0-99.0); MEAN CORPUSCULAR HEMOGLOBIN 31.7 pg (27.0-31.0); MEAN CORPUSCULAR HGB CONC 33.2 g/dL (33.0-37.0); MEAN PLATELET VOLUME 10.7 fL (7.2-11.7); MONO # 0.5 K/uL (0.0-0.8); MONO % 7.5 % (0.0-10.0); NRBC % 0.7 % (0.0-2.0); RED CELL DISTRIBUTION WIDTH 20.2 % (11.5-14.5)
[2016-12-19 07:36] LABS: CHLORIDE 113 mmol/L (98-107)
[2016-12-19 07:37] LABS: POTASSIUM 3.7 mmol/L (3.6-5.2); SODIUM 143 mmol/L (132-148)
[2016-12-19 07:39] LABS: ALB/GLOB RATIO 1.4 (1.0-2.1); ALKALINE PHOSPHATASE 94 U/L (38-126); AST/SGOT 29 U/L (14-36); BILIRUBIN,TOTAL 1.8 mg/dL (0.2-1.3); CARBON DIOXIDE 19 mmol/L (22-30); GFR AFRICAN-AMERICAN > 60; TOTAL PROTEIN 4.5 g/dL (6.3-8.3)
[2016-12-19 07:40] LABS: ALT/SGPT 27 U/L (9-52); BLOOD UREA NITROGEN 26 mg/dL (7-17); CALCIUM 8.7 mg/dl (8.6-10.4); GLUCOSE,RANDOM 83 mg/dL (65-105)
--- NOTE | 2016-12-19 14:13 | RAD ---
HISTORY: labored breathing, eval for fluid overload COMPARISON: Portable chest 12/17/2016. FINDINGS: LUNGS: Right life port catheter unchanged in position. ACH image density seen at the right hemithorax may reflect subtle pleural effusion no history disease not completely excluded. Limited atelectasis or infiltrate is seen at the left retrocardiac space laterally. Trace of pleural effusion may blunts the left costophrenic sulcus in the interval. . CARDIOVASCULAR: Cardiac silhouette remains prominent appearing limited underlying CHF not excluded. OSSEOUS STRUCTURES: No significant abnormalities. VISUALIZED UPPER ABDOMEN: Normal. OTHER FINDINGS: None. IMPRESSION: Increased right-sided opacity may reflect infiltrate or pleural effusion. Trace left pleural effusion not excluded with atelectasis or infiltrate posterior to the left heart appearing increased. Stable cardiomegaly.
--- NOTE | 2016-12-19 14:16 | CP.PCM.PN ---
Subjective - Date & Time of Evaluation Date of Evaluation: 12/19/16 Time of Evaluation: 08:00 - Subjective Subjective: Pulm progress note for Dr. Lyles: Patient seen and examined at bedside this morning. Patient had improved mental status but still iwht low appeitite and refusing medications. She denied chest pain, SOB, and cough but she appeared to be breathing with increased effort today. Remains afebrile but with lower BP and remains tachycardic. Saturating well on NC. Patient is septic with E coli in the urine and blood. Repeat Chest X ray was done which shows worsening of fluid in the lungs. Will transfer to ICU for closer monitoring. Objective - Vital Signs/Intake and Output Vital Signs (last 24 hours): Temp Pulse Resp BP Pulse Ox 97.9 F 91 H 20 124/69 100 12/19/16 07:00 12/19/16 07:00 12/19/16 07:00 12/19/16 07:00 12/19/16 07:00 Intake and Output: 12/19/16 12/19/16 06:59 18:59 Intake Total 300 Output Total 475 Balance -175 - Medications Medications: Current Medications Carbidopa/Levodopa (Sinemet) 1 tab PO QID [facility] Last Admin: 12/19/16 10:52 Dose: Not Given Docusate Sodium (Colace) 100 mg PO TID [facility] Last Admin: 12/19/16 10:53 Dose: Not Given Entacapone (Comtan) 200 mg PO ACBD [facility] Last Admin: 12/19/16 08:00 Dose: 200 mg Furosemide (Lasix) 20 mg PO DAILY [facility] Last Admin: 12/19/16 10:53 Dose: Not Given Imipenem/Cilastatin Sodium 500 (mg/ Sodium Chloride) 100 mls @ 100 mls/hr IVPB Q6H [facility] Last Admin: 12/19/16 11:42 Dose: 100 mls/hr Metoprolol Tartrate (Lopressor) 12.5 mg PO BID [facility] Last Admin: 12/19/16 10:53 Dose: Not Given Polyethylene Glycol (Miralax) 17 gm PO Q8H PRN PRN Reason: Constipation Spironolactone (Aldactone) 25 mg PO DAILY [facility] Last Admin: 12/19/16 10:52 Dose: Not Given - Labs Labs: 12/19/16 07:06 12/19/16 04:00 PT 16.7 SECONDS (9.7-12.2) H 12/11/16 13:34 INR 1.5 12/11/16 13:34 APTT 30 SECONDS (21-34) 12/11/16 13:34 - Constitutional Appears: Non-toxic, No Acute Distress, Chronically Ill - Respiratory Exam Respiratory Exam: Accessory Muscle Use, Decreased Breath Sounds, Rales, NORMAL BREATHING PATTERN. absent: Respiratory Distress - Cardiovascular Exam Cardiovascular Exam: Tachycardia, REGULAR RHYTHM, +S1, +S2 - GI/Abdominal Exam GI & Abdominal Exam: Soft, Normal Bowel Sounds. absent: Distended, Firm, Guarding, Tenderness - Neurological Exam Neurological Exam: Alert, Awake - Psychiatric Exam Psychiatric exam: Normal Affect, Normal Mood Assessment and Plan (1) Fluid overload Assessment & Plan: Patient with worsening chest X ray and increased breathing effort. Will transfer to ICU for closer monitoring and diuresis Status: Acute (2) Sepsis Assessment & Plan: Escherichia coli sepsis secondary to uterine tract infect Continue antibiotics Continue IV fluids Monitor lactate level Consider NG tube feeding Chest Xray on 12/18 showed venous congestion and repeat today showed worsening of fluid in lungs Status: Acute (3) Congestive cardiomyopathy Status: Chronic (4) Parkinson disease Status: Chronic (5) History of B-cell lymphoma Status: Chronic
--- NOTE | 2016-12-19 15:21 | CP.PCM.CON ---
<Daja Cruz - Last Filed: 12/19/16 18:02> History of Present Illness - History of Present Illness History of Present Illness: HPI: Patient is a 65 y/o F with pmhx of non-ischemic cardiomyopathy, Parkinson' s disease, CHF, hypotension, and diffuse large cell lymphoma in remission. Patient was admitted to [facility] on 12/11/16 because of confusion and not having eaten for 4 days. Blood and urine culture were positive for E. Coli on 12/11. Blood culture from 12/18 has no growth for 24 hours. Patient transferred to ICU for tachypnea and use of accessory muscles. Patient needs to be closely monitored for persistent tachycardia and respiratory distress. ROS unobtainable due to patient's current clinical status. Further history obtained from patient's Aunt, Kelly Whipple (Aunt-cell: [phone]) Heme/Onc: Dr. Moody, Dr. Nichole- [place] PMHx: non-ischemic cardiomyopathy, Parkinson's disease, CHF, hypotension, and diffuse large cell lymphoma in remission PSurg: none known as per Aunt Psoc: Aunt believes no alcohol, tobacco, or drugs All: NKDA Full code Meds (from EMR): carbidopa/levodopa 1 tab PO QID entacapone 200mg PO ACBD docusate 10mg PO TID furosemide 20mg PO QD Imipenem/Cilastatin 500mg @100mls/hr IVPB Q6H lopressor 12.5 mg PO BID polyethylene glycol 17g PO Q8h PRN spironolactone 25mg PO QD Review of Systems - Review of Systems Systems not reviewed;Unavailable: Intubated Past Patient History - Tetanus Immunizations Tetanus Immunization: Unknown - Past Medical History & Family History Past Medical History?: Yes - Past Social History Smoking Status: Never Smoked Alcohol: None Drugs: Denies Home Situation {Lives}: With Family Domestic Violence: Negative - CARDIAC Hx Congestive Heart Failure: Yes Hx Hypertension: Yes - PULMONARY Hx Respiratory Disorders: No - NEUROLOGICAL Hx Parkinson's Disease: Yes - HEENT Hx HEENT Problems: No - RENAL Hx Chronic Kidney Disease: No - ENDOCRINE/METABOLIC Hx Endocrine Disorders: No - HEMATOLOGICAL/ONCOLOGICAL Hx Blood Disorders: Yes Hx Chemotherapy: Yes Other/Comment: " I HAVE SOME KIND OF CANCER IN MY BACK" - INTEGUMENTARY Hx Dermatological Problems: No - MUSCULOSKELETAL/RHEUMATOLOGICAL Hx Falls: No - GASTROINTESTINAL Hx Constipation: Yes - PSYCHIATRIC Hx Hallucinations: Yes Hx Schizophrenia: Yes Hx Substance Use: No - SURGICAL HISTORY Hx Surgeries: Yes Hx Orthopedic Surgery: Yes (Spine surgery ) Other/Comment: R subclavian shunt - ANESTHESIA Hx Anesthesia: Yes Hx Anesthesia Reactions: No Meds Allergies/Adverse Reactions: Allergies Allergy/AdvReac Type Severity Reaction Status Date / Time No Known Allergies Allergy Verified 12/11/16 12:40 - Medications Medications: Current Medications Carbidopa/Levodopa (Sinemet) 1 tab PO QID [facility] Last Admin: 12/19/16 10:52 Dose: Not Given Docusate Sodium (Colace) 100 mg PO TID [facility] Last Admin: 12/19/16 10:53 Dose: Not Given Entacapone (Comtan) 200 mg PO ACBD [facility] Last Admin: 12/19/16 08:00 Dose: 200 mg Furosemide (Lasix) 20 mg IVP STAT STA Stop: 12/19/16 15:07 Imipenem/Cilastatin Sodium 500 (mg/ Sodium Chloride) 100 mls @ 100 mls/hr IVPB Q6H [facility] Last Admin: 12/19/16 11:42 Dose: 100 mls/hr Metoprolol Tartrate (Lopressor) 12.5 mg PO BID [facility] Last Admin: 12/19/16 10:53 Dose: Not Given Polyethylene Glycol (Miralax) 17 gm PO Q8H PRN PRN Reason: Constipation Spironolactone (Aldactone) 25 mg PO DAILY [facility] Last Admin: 12/19/16 10:52 Dose: Not Given Physical Exam - Constitutional Appears: Non-toxic, In Acute Distress, Confused - Head Exam Head Exam: ATRAUMATIC, NORMAL INSPECTION, NORMOCEPHALIC - Eye Exam Eye Exam: EOMI - ENT Exam ENT Exam: Mucous Membranes Dry - Respiratory Exam Respiratory Exam: Accessory Muscle Use, Decreased Breath Sounds, Rales, Wheezes , Respiratory Distress - Cardiovascular Exam Cardiovascular Exam: Tachycardia, +S1, +S2 - GI/Abdominal Exam GI & Abdominal Exam: Soft. absent: Tenderness - Extremities Exam Extremities exam: Negative for: pedal edema - Neurological Exam Neurological exam: Altered - Psychiatric Exam Psychiatric exam: Agitated, Anxious - Skin Skin Exam: Intact, Normal Color, Warm Results - Vital Signs Recent Vital Signs: Last Vital Signs Temp 97.9 F 12/19/16 07:00 Pulse 91 H 12/19/16 07:00 Resp 20 12/19/16 07:00 BP 124/69 12/19/16 07:00 Pulse Ox 100 12/19/16 07:00 - Labs Result Diagrams: 12/19/16 07:06 12/19/16 04:00 Labs: Laboratory Results - last 24 hr 12/18/16 12/18/16 12/19/16 16:53 21:40 04:00 WBC RBC Hgb Hct MCV MCH MCHC RDW Plt Count MPV Neut % (Auto) Lymph % (Auto) [place] % (Auto) Eos % (Auto) Baso % (Auto) Neut # Lymph # [place] # Eos # Baso # Sodium 143 Potassium 3.7 Chloride 113 H Carbon Dioxide 19 L Anion Gap 15 BUN 26 H Creatinine 0.7 Est GFR ( Amer) > 60 Est GFR (Non-Af Amer) > 60 POC Glucose (mg/dL) 86 126 H Random Glucose 83 Calcium 8.7 Total Bilirubin 1.8 H AST 29 ALT 27 Alkaline Phosphatase 94 Total Protein 4.5 L Albumin 2.6 L Globulin 1.8 L Albumin/Globulin Ratio 1.4 12/19/16 12/19/16 12/19/16 06:55 07:06 11:41 WBC 6.0 RBC 3.78 L Hgb 12.0 Hct 36.2 MCV 95.6 MCH 31.7 H MCHC 33.2 RDW 20.2 H Plt Count 181 MPV 10.7 Neut % (Auto) 71.6 Lymph % (Auto) 20.0 [place] % (Auto) 7.5 Eos % (Auto) 0.6 Baso % (Auto) 0.3 Neut # 4.3 Lymph # 1.2 [place] # 0.5 Eos # 0.0 Baso # 0.0 Sodium Potassium Chloride Carbon Dioxide Anion Gap BUN Creatinine Est GFR ( Amer) Est GFR (Non-Af Amer) POC Glucose (mg/dL) 93 124 H Random Glucose Calcium Total Bilirubin AST ALT Alkaline Phosphatase Total Protein Albumin Globulin Albumin/Globulin Ratio Assessment & Plan - Assessment and Plan (Free Text) Assessment: Patient is 65 y/o F with Pmhx of non-ischemic cardiomyopathy, Parkinson's disease, CHF, hypotension, and diffuse large cell lymphoma admitted for urosepsis on 12/11 transferred to ICU on 12/19 for worsening respiratory distress. Neuro: AMS, hx Parkinson disease * Carbidopa/Levodopa * Comtan 200mg po ACBD * Head CT (12/11): stable limited age related neuro degeneraative changes appear reiterated without definite acute interval findings as discussed in full report * Brain MRI (12/13): no evidence of acute pathology in the brain. No evidence of enhancing mass lesion, mess effect, or midline shift. Cardio: hx CHF with dilated cardiomyopathy * Echo 10/04/16 showed LVEF 27%, pulmonary HTN and evidence of dilated cardiomyopathy. ICD implantation was recommended for when patient was more stable * patient having persistent tachycardia, but refusing oral medications * Lopressor 12.5 mg po BID * Aldactone 25mg po daily * Dr. Da Silva consulted, help appreciated Pulm: respiratory distress 2/2 CHF * placed on BiPAP, ABG: pCO2: 25, pO2: 182, HCO3: 22.2, pH:7.48 * f/u sputum culture * Cxray (12/19): increased right sided opacity may reflect infiltrate or pleural effusion. Trace left pleural effusion not excluded with atelectasis or infilitrate posterior to the left heart appearing increased. Stable cardiomegaly. * f/u CTA (12/19) Heme: hx of large cell lymphoma * in remission * heme/onc doctors: Dr. Moody, Dr. Nichole in [place] * needs port flushed (due, last done 6 weeks ago) GI: No acute symptoms at this time * Miralax as needed : Urosepsis 2/2 e. coli (12/11), yeast(12/18) in urine * Imipenem/cilastin * started Fluconazole (12/19/16) ID: * Blood and urine culture 12/11/16: E. Coli * Blood culture 12/18/16: negative * Urine culture 12/18/16: yeast * Imipenem/cilastin * started Fluconazole (12/19/16) * Dr. Lynn consulted, help appreciated Psych: delirium vs. anti-parkinson medication induced * Per Dr. Mishra, psych meds being held at this time Prophylaxis: * GI: Protonix 40mg daily * DVT: Heparin 5000 u q12h <Yordan Lyles - Last Filed: 12/19/16 18:21> Meds - Medications Medications: Current Medications Carbidopa/Levodopa (Sinemet) 1 tab PO QID [facility] Last Admin: 12/19/16 17:55 Dose: 1 tab Docusate Sodium (Colace) 100 mg PO TID [facility] Last Admin: 12/19/16 18:04 Dose: Not Given Entacapone (Comtan) 200 mg PO ACBD [facility] Last Admin: 12/19/16 17:05 Dose: 200 mg Heparin Sodium (Porcine) (Heparin) 5,000 units SC Q12H [facility] Last Admin: 12/19/16 17:00 Dose: 5,000 units Imipenem/Cilastatin Sodium 500 (mg/ Sodium Chloride) 100 mls @ 100 mls/hr IVPB Q6H [facility] Last Admin: 12/19/16 11:42 Dose: 100 mls/hr Fluconazole (Diflucan Iv 100 Mg/50 Ml Ns) 50 mls @ 100 mls/hr IVPB DAILY [facility] Last Admin: 12/19/16 16:53 Dose: 100 mls/hr Metoprolol Tartrate (Lopressor) 12.5 mg PO BID [facility] Last Admin: 12/19/16 17:55 Dose: 12.5 mg Pantoprazole Sodium (Protonix Inj) 40 mg IVP DAILY [facility] Last Admin: 12/19/16 17:55 Dose: 40 mg Polyethylene Glycol (Miralax) 17 gm PO Q8H PRN PRN Reason: Constipation Spironolactone (Aldactone) 25 mg PO DAILY [facility] Last Admin: 12/19/16 10:52 Dose: Not Given Results - Vital Signs Recent Vital Signs: Last Vital Signs Temp 97.9 F 12/19/16 07:00 Pulse 111 H 12/19/16 15:40 Resp 20 12/19/16 07:00 BP 124/69 12/19/16 07:00 Pulse Ox 100 12/19/16 07:00 - Labs Result Diagrams: 12/19/16 07:06 12/19/16 04:00 Labs: Laboratory Results - last 24 hr 12/18/16 12/19/16 12/19/16 21:40 04:00 06:55 WBC RBC Hgb Hct MCV MCH MCHC RDW Plt Count MPV Neut % (Auto) Lymph % (Auto) [place] % (Auto) Eos % (Auto) Baso % (Auto) Neut # Lymph # [place] # Eos # Baso # Puncture Site pCO2 pO2 HCO3 ABG pH ABG Total CO2 ABG O2 Saturation ABG Base Excess ABG Hemoglobin ABG Carboxyhemoglobin POC ABG HHb (Measured) ABG Methemoglobin [place] Test A-a O2 Difference Respiratory Index Hgb O2 Saturation FiO2 Sodium 143 Potassium 3.7 Chloride 113 H Carbon Dioxide 19 L Anion Gap 15 BUN 26 H Creatinine 0.7 Est GFR ( Amer) > 60 Est GFR (Non-Af Amer) > 60 POC Glucose (mg/dL) 126 H 93 Random Glucose 83 Calcium 8.7 Total Bilirubin 1.8 H AST 29 ALT 27 Alkaline Phosphatase 94 Total Protein 4.5 L Albumin 2.6 L Globulin 1.8 L Albumin/Globulin Ratio 1.4 12/19/16 12/19/16 12/19/16 07:06 11:41 16:10 WBC 6.0 RBC 3.78 L Hgb 12.0 Hct 36.2 MCV 95.6 MCH 31.7 H MCHC 33.2 RDW 20.2 H Plt Count 181 MPV 10.7 Neut % (Auto) 71.6 Lymph % (Auto) 20.0 [place] % (Auto) 7.5 Eos % (Auto) 0.6 Baso % (Auto) 0.3 Neut # 4.3 Lymph # 1.2 [place] # 0.5 Eos # 0.0 Baso # 0.0 Puncture Site Rra pCO2 25 L pO2 182 H HCO3 22.2 ABG pH 7.48 H ABG Total CO2 19.4 L ABG O2 Saturation 99.8 H ABG Base Excess -3.5 L ABG Hemoglobin 11.9 ABG Carboxyhemoglobin 1.8 H POC ABG HHb (Measured) 0.2 ABG Methemoglobin 1.4 [place] Test Pos A-a O2 Difference 72.0 Respiratory Index 0.4 Hgb O2 Saturation 96.6 FiO2 40.0 Sodium Potassium Chloride Carbon Dioxide Anion Gap BUN Creatinine Est GFR ( Amer) Est GFR (Non-Af Amer) POC Glucose (mg/dL) 124 H Random Glucose Calcium Total Bilirubin AST ALT Alkaline Phosphatase Total Protein Albumin Globulin Albumin/Globulin Ratio Assessment & Plan (1) Sepsis Status: Acute (2) Parkinson disease Status: Chronic (3) Congestive cardiomyopathy Status: Chronic (4) History of B-cell lymphoma Status: Chronic Attending/Attestation - Attestation I have personally seen and examined this patient.: Yes I have fully participated in the care of the patient.: Yes I have reviewed all pertinent clinical information: Yes Notes (Text): 12/19/16 18:20 Patient seen and examined. Patient transferred to intensive care unit for persistent tachycardia, shortness of breath, worsening lung infiltrate and lethargy Being treated for Escherichia coli sepsis CAT scan of the chest with contrast Lasix as started. Pressors if needed Patient refusing medication
[2016-12-19 16:16] LABS: ABG ALLEN TEST POS; ARTERIAL BLOOD HGB O2 SAT 96.6 % (95.0-98.0); CARBOXYHEMOGLOBIN 1.8 % (0.5-1.5); DRAW SITE RRA; HHB 0.2 % (0.0-5.0); METHEMOGLOBIN 1.4 % (0.0-3.0)
[2016-12-19] MEDS: Fluconazole IV 100mg/50 ml NS 50 ML IVPB SCH (16:53)
--- NOTE | 2016-12-19 18:54 | CT ---
EXAM: CT Angiography Chest With Intravenous Contrast EXAM DATE/TIME: Exam ordered 12/19/2016 5:05 PM CLINICAL HISTORY: 65 years old, female; Signs and symptoms; Other: Persistent tachy , SOB; Additional info: Persistent tachy, fluid overload TECHNIQUE: Axial computed tomographic angiography images of the chest with intravenous contrast using pulmonary embolism protocol. All CT scans at this facility use one or more dose reduction techniques, viz.: automated exposure control; ma/kV adjustment per patient size (including targeted exams where dose is matched to indication; i.e. head); or iterative reconstruction technique. MIP reconstructed images were created and reviewed. Coronal and sagittal reformatted images were created and reviewed. CONTRAST: 100 mL of visipaque administered intravenously. COMPARISON: No relevant prior studies available. FINDINGS: Pulmonary arteries: Unremarkable. No pulmonary embolism. Aorta: No acute findings. No thoracic aortic aneurysm. Lungs: There is a large right pleural effusion with compression atelectasis in the dependent right lung. There is moderate perihepatic and perisplenic ascites. No mass. Pleural space: See above. Heart: The heart is mildly enlarged. No significant pericardial effusion. Bones/joints: No acute fracture. No dislocation. Soft tissues: There is anasarca. A port is implanted within the soft tissues of the right upper anterior chest wall with Lymph nodes: Unremarkable. No enlarged lymph nodes. IMPRESSION: 1. No pulmonary embolism. 2. Large right pleural effusion with compression atelectasis in the dependent portion of the right lung. 3. Mild cardiomegaly with Moderate to large intra-abdominal ascites and anasarca
--- NOTE | 2016-12-19 19:05 | CP.PCM.PN ---
Subjective - Date & Time of Evaluation Date of Evaluation: 12/19/16 Time of Evaluation: 19:05 - Subjective Subjective: CHIEF COMPLAINTS TODAY : events noted .Patient transferred to ICU bed 6 because of respiratory distress .Presently on BiPAP.. Awake, confused at times. BLOOD CULTURE 12/11/16 +VE 2:2 SETS ESBL +VE ESCHERICHIA COLI URINE CULTURE 12/11/16 +VE ESBL E. COLI S-Primaxin/ amikacin R- CEFEPIME ROS.on observation. HEENT : N.PT. ON BIPAP Resp : No SOB wheezing, cough Cardio : No CP, PND orthopnea GI : No abd. Pain, n/v TRIAL JUDGE : No headache , focal deficit. Musculoskel : N Ext. : Pedal pulses intact, no edema or calf pain Derm : N Psych : N. PE. Pt. AWAKE ON BIPAP V.S As noted in the chart Head ,ear nose,throat and eyes : Normal. Neck : Supple with normal carotids. Lungs: BILATERAL RALES RT>LT Heart : S1 & S2 normal .TACHYCARDIC . No murmur. Abd : Soft non tender with normal bowel sounds. Neuro : Moves all ext. with no localized deficit. Ext : No edema with intact pulses. Neg. calf tenderness Derm : No rashes or decubitus ulcer. Radiology/Labs . ANGIO - CHEST 12/19/16 -VE PULMONARY EMBOLISM. lARGE RIGHT PLEURAL EFFUSION WITH COMPRESSIVE ATELECTASIS RIGHT LOWER LOBE ( see full report ) urine culture +ve yeast. Creatinine 0.7/BUN 26. REPEAT BLOOD CULTURES -VE GROWTH FOR 24 HOURS. Asssessment : RESPIRATORY FAILURE /CHF WITH LARGE RIGHT EFFUSION. GRAM-NEGATIVE SEPSIS +VE ESBL +VE E. COLI 2:2 SETS source of sepsis most likely vs GI CANDIDURIA CHF HISTORY OF B CELL- LYMPHOMA ( IN REMISSION ) PARKINSONISM. Plan : CONTINUE IV PRIMAXIN 500 MG EVERY 6 HOURLY .12/13/16. ADD iv DIFLUCAN 100 MG iv PIGGYBACK ONCE A DAY DAILY.12/19/16. FOLLOW-UP repeat blood cultures . fOLLOW-UP RENAL FUNCTIONS. DIURESIS IS PER CARDIOLOGY. CBC with differential in a.m. Discussed with niece at the bedside. DISCUSSED WITH STAFF AND RESIDENTS. Objective - Vital Signs/Intake and Output Vital Signs (last 24 hours): Temp Pulse Resp BP Pulse Ox 97.9 F 111 H 20 124/69 100 12/19/16 07:00 12/19/16 15:40 12/19/16 07:00 12/19/16 07:00 12/19/16 07:00 - Medications Medications: Current Medications Carbidopa/Levodopa (Sinemet) 1 tab PO QID [facility] Last Admin: 12/19/16 17:55 Dose: 1 tab Docusate Sodium (Colace) 100 mg PO TID [facility] Last Admin: 12/19/16 18:04 Dose: Not Given Entacapone (Comtan) 200 mg PO ACBD [facility] Last Admin: 12/19/16 17:05 Dose: 200 mg Heparin Sodium (Porcine) (Heparin) 5,000 units SC Q12H [facility] Last Admin: 12/19/16 17:00 Dose: 5,000 units Imipenem/Cilastatin Sodium 500 (mg/ Sodium Chloride) 100 mls @ 100 mls/hr IVPB Q6H [facility] Last Admin: 12/19/16 11:42 Dose: 100 mls/hr Fluconazole (Diflucan Iv 100 Mg/50 Ml Ns) 50 mls @ 100 mls/hr IVPB DAILY [facility] Last Admin: 12/19/16 16:53 Dose: 100 mls/hr Metoprolol Tartrate (Lopressor) 12.5 mg PO BID [facility] Last Admin: 12/19/16 17:55 Dose: 12.5 mg Pantoprazole Sodium (Protonix Inj) 40 mg IVP DAILY [facility] Last Admin: 12/19/16 17:55 Dose: 40 mg Polyethylene Glycol (Miralax) 17 gm PO Q8H PRN PRN Reason: Constipation Spironolactone (Aldactone) 25 mg PO DAILY [facility] Last Admin: 12/19/16 10:52 Dose: Not Given - Labs Labs: 12/19/16 07:06 12/19/16 04:00 PT 16.7 SECONDS (9.7-12.2) H 12/11/16 13:34 INR 1.5 12/11/16 13:34 APTT 30 SECONDS (21-34) 12/11/16 13:34 Assessment and Plan (1) Altered mental status Status: Acute (2) Sepsis Status: Acute (3) UTI (urinary tract infection) Status: Acute (4) CHF (congestive heart failure) Status: Chronic (5) History of B-cell lymphoma Status: Chronic (6) Parkinson disease Status: Chronic
[2016-12-19] MEDS ORDERED: Iodixanol 320 MG/ML 100 ML BOTTLE IV ONE (19:09)
--- NOTE | 2016-12-19 20:20 | PN ---
DATE: 12/19/2016 SUBJECTIVE: The patient is seen. The patient was transferred to ICU as she declined medically. She has been refusing to take her meds and also the patient has been refusing to eat. Today, she received BiPAP in ICU. Her blood pressure seems to be low at times. PHYSICAL EXAMINATION: VITAL SIGNS: Temperature 97.9, pulse rate is 91, blood pressure 124/69, respirations 20, oxygen saturation is 100%. REVIEW OF SYSTEMS: GENERAL: The patient is feeling weak, but seen in her room in the ICU, bed #6, with BiPAP. SKIN: No diaphoresis. HEENT: No headache. No dizziness. NECK: Supple. RESPIRATORY: Not in acute respiratory distress. CARDIOVASCULAR: No chest pain. GASTROINTESTINAL: Very poor appetite, refusing even to eat and take her meds. EXTREMITIES: The patient is moving extremities. MUSCULOSKELETAL: Feels week. NEUROLOGIC: Alert with periods of confusion. MENTAL STATUS EXAMINATION: An elderly female who looks very weak and frail, confused, seen in her room with BiPAP. Mood is dysphoric. Affect is constricted. Speech is slow. Thought process confused off and on. Thought content, no overt psychosis. No suicidal or homicidal ideation. Attention and memory seem to be limited. Insight and judgment limited. Impulse control is fair at this time. The patient had a chest x-ray done earlier that showed the following report: The patient's chest x-ray showed the increased right-sided opacity, which may reflect infiltrate or pleural effusion. Stable cardiomegaly. Trace left pleural infiltrate not excluded. Atelectasis or infiltrate posterior to the left heart appearing increased. IMPRESSION: Delirium and metabolic encephalopathy secondary to urinary tract infection. PLAN AND RECOMMENDATIONS: The patient is seen. Meds reviewed. Continue present management. The patient got transferred to ICU. The patient has very p.o .intake and also refusing to take her meds. The patient may benefit from parenteral nutrition to help her with nutrition. Patricio Maciel MD
--- NOTE | 2016-12-19 23:50 | CP.PCM.PN ---
Subjective - Date & Time of Evaluation Date of Evaluation: 12/19/16 Time of Evaluation: 19:30 - Subjective Subjective: Patient to ICU because of SOB. CT scan of the chest revealed a large pleural effusion and no pulmonary embolism. Patient is alert, on BIPAP, has no complaint. Objective - Vital Signs/Intake and Output Vital Signs (last 24 hours): Temp Pulse Resp BP Pulse Ox 98.7 F 117 H 28 H 104/78 100 12/19/16 18:00 12/19/16 22:20 12/19/16 22:20 12/19/16 22:12 12/19/16 22:20 Intake and Output: 12/19/16 12/20/16 18:59 06:59 Intake Total 80 0 Output Total 100 200 Balance -20 -200 - Medications Medications: Current Medications Carbidopa/Levodopa (Sinemet) 1 tab PO QID [facility] Last Admin: 12/19/16 21:09 Dose: 1 tab Docusate Sodium (Colace) 100 mg PO TID [facility] Last Admin: 12/19/16 18:04 Dose: Not Given Entacapone (Comtan) 200 mg PO ACBD [facility] Last Admin: 12/19/16 17:05 Dose: 200 mg Furosemide (Lasix) 20 mg IVP DAILY [facility] Heparin Sodium (Porcine) (Heparin) 5,000 units SC Q12H [facility] Last Admin: 12/19/16 17:00 Dose: 5,000 units Imipenem/Cilastatin Sodium 500 (mg/ Sodium Chloride) 100 mls @ 100 mls/hr IVPB Q6H [facility] Last Admin: 12/19/16 18:45 Dose: 100 mls/hr Fluconazole (Diflucan Iv 100 Mg/50 Ml Ns) 50 mls @ 100 mls/hr IVPB DAILY [facility] Last Admin: 12/19/16 16:53 Dose: 100 mls/hr Metoprolol Tartrate (Lopressor) 12.5 mg PO BID [facility] Last Admin: 12/19/16 17:55 Dose: 12.5 mg Pantoprazole Sodium (Protonix Inj) 40 mg IVP DAILY [facility] Last Admin: 12/19/16 17:55 Dose: 40 mg Polyethylene Glycol (Miralax) 17 gm PO Q8H PRN PRN Reason: Constipation Spironolactone (Aldactone) 25 mg PO DAILY [facility] Last Admin: 12/19/16 10:52 Dose: Not Given - Labs Labs: 12/19/16 07:06 12/19/16 04:00 PT 16.7 SECONDS (9.7-12.2) H 12/11/16 13:34 INR 1.5 12/11/16 13:34 APTT 30 SECONDS (21-34) 12/11/16 13:34 - Constitutional Appears: No Acute Distress, Confused, Chronically Ill - Head Exam Head Exam: NORMAL INSPECTION - Eye Exam Eye Exam: Normal appearance - ENT Exam ENT Exam: Normal Exam - Neck Exam Neck Exam: Normal Inspection - Respiratory Exam Additional comments: Rhonchi heard at both bases - Cardiovascular Exam Cardiovascular Exam: REGULAR RHYTHM, Murmur - GI/Abdominal Exam GI & Abdominal Exam: Soft, Normal Bowel Sounds - Rectal Exam Rectal Exam: Deferred - Extremities Exam Extremities Exam: Normal Inspection - Back Exam Back Exam: NORMAL INSPECTION - Neurological Exam Neurological Exam: Alert, Awake - Psychiatric Exam Psychiatric exam: Flat Affect - Skin Skin Exam: Dry, Intact, Normal Color, Warm Assessment and Plan (1) Altered mental status Status: Acute (2) Parkinson disease Status: Chronic (3) UTI (urinary tract infection) Assessment & Plan: To continue IV antibiotics as per Dr Prudence Lynn. Status: Acute (4) Non-ischemic cardiomyopathy Assessment & Plan: Acute heart failure from fluid overload. To order Lasix 20 mg IV stat and daily. For a thoracentesisi in AM. Status: Chronic
[2016-12-20 06:37] LABS: BASO # 0.1 K/uL (0.0-0.2); BASO % 0.9 % (0.0-2.0); CHLORIDE 112 mmol/L (98-107); EOS % 0.3 % (0.0-4.0); HEMATOCRIT 39.6 % (34.0-47.0); LYMPH # 0.9 K/uL (1.0-4.3); LYMPH % 15.3 % (20.0-40.0); MEAN CORPUSCULAR HEMOGLOBIN 31.8 pg (27.0-31.0); MEAN CORPUSCULAR HGB CONC 33.1 g/dL (33.0-37.0); MEAN PLATELET VOLUME 10.7 fL (7.2-11.7); MONO # 0.4 K/uL (0.0-0.8); MONO % 6.8 % (0.0-10.0); NRBC % 0.3 % (0.0-2.0); POTASSIUM 3.8 mmol/L (3.6-5.2); RED CELL DISTRIBUTION WIDTH 20.4 % (11.5-14.5); SODIUM 141 mmol/L (132-148); WHITE BLOOD COUNT 6.2 K/uL (4.8-10.8)
[2016-12-20 06:39] LABS: ALKALINE PHOSPHATASE 104 U/L (38-126); ALT/SGPT 25 U/L (9-52); AST/SGOT 35 U/L (14-36); BILIRUBIN,TOTAL 2.2 mg/dL (0.2-1.3); BLOOD UREA NITROGEN 25 mg/dL (7-17); CARBON DIOXIDE 20 mmol/L (22-30); GFR AFRICAN-AMERICAN > 60; TOTAL PROTEIN 5.1 g/dL (6.3-8.3)
[2016-12-20 06:40] LABS: CALCIUM 8.8 mg/dl (8.6-10.4); GLUCOSE,RANDOM 77 mg/dL (65-105); MAGNESIUM 1.7 mg/dL (1.6-2.3); PHOSPHOROUS 3.2 mg/dL (2.5-4.5)
[2016-12-20 06:44] LABS: ALB/GLOB RATIO 1.6 (1.0-2.1)
--- NOTE | 2016-12-20 07:07 | CP.CCUPN ---
<Sarath Hatfield - Last Filed: 12/20/16 16:40> CCU Objective - Vital Signs / Intake & Output Vital Signs (Last 4 hours): Vital Signs Pulse Resp BP 12/20/16 16:30 127 H 28 H 12/20/16 16:12 127 H 27 H 117/65 12/20/16 16:00 126 H 25 H 12/20/16 15:42 129 H 31 H 117/70 12/20/16 15:30 129 H 30 H 12/20/16 15:12 133 H 31 H 126/82 12/20/16 15:00 133 H 32 H 12/20/16 14:42 121 H 13 119/77 12/20/16 14:30 127 H 21 12/20/16 14:12 120 H 15 110/79 12/20/16 14:00 121 H 28 H 12/20/16 13:42 95 H 38 H 101/68 12/20/16 13:30 125 H 22 12/20/16 13:12 127 H 33 H 122/86 12/20/16 13:00 126 H 32 H 12/20/16 12:42 124 H 29 H 119/80 Intake and Output (Last 8hrs): Intake & Output 12/20/16 12/20/16 12/20/16 06:59 14:59 22:59 Intake Total 250 740 300 Output Total 1100 900 200 Balance -850 -160 100 Weight 137 lb Intake: Intake, IV Amount 200 0 0 Right Wrist 200 0 0 Oral 50 740 300 Output: Urine 1100 900 200 Urethral (Marlow) 1100 900 200 Stool 0 0 Emesis 0 0 Other: # Bowel Movements 0 - Medications Active Medications: Active Medications Generic Name Dose Route Start Last Admin Trade Name Freq PRN Reason Stop Dose Admin Carbidopa/Levodopa 1 tab 12/15/16 14:00 12/20/16 13:41 Sinemet PO Not Given QID [facility] Docusate Sodium 100 mg 12/14/16 14:00 12/20/16 13:41 Colace PO Not Given TID ANALISA Entacapone 200 mg 12/11/16 19:30 12/20/16 16:30 Comtan PO Not Given ACBD ANALISA Furosemide 20 mg 12/20/16 10:00 12/20/16 09:44 Lasix IVP Not Given DAILY [facility] Heparin Sodium (Porcine) 5,000 units 12/19/16 17:00 12/20/16 16:30 Heparin SC Not Given Q12H ANALISA Fluconazole 50 mls @ 100 mls/hr 12/19/16 16:00 12/20/16 10:50 Diflucan Iv 100 Mg/50 Ml Ns IVPB 100 mls/hr DAILY ANALISA Administration Imipenem/Cilastatin Sodium 500 100 mls @ 100 mls/hr 12/20/16 18:30 mg/ Dextrose IVPB Q6H [facility] Metoprolol Tartrate 12.5 mg 12/12/16 22:30 12/20/16 09:44 Lopressor PO Not Given BID ANALISA Pantoprazole Sodium 40 mg 12/19/16 17:00 12/20/16 10:50 Protonix Inj IVP 40 mg DAILY ANALISA Administration Polyethylene Glycol 17 gm 12/14/16 11:09 Miralax PO Q8H PRN Constipation Spironolactone 25 mg 12/15/16 10:00 12/20/16 09:44 Aldactone PO Not Given DAILY ANALISA - Patient Studies Lab Studies: Microbiology Studies 12/20/16 09:51 Gram Stain - Preliminary Pleural Fluid 12/18/16 05:40 Blood Culture - Preliminary Blood-Thru Central Line NO GROWTH AFTER 48 HOURS 12/18/16 07:05 Blood Culture - Preliminary Blood-Thru Central Line NO GROWTH AFTER 48 HOURS 12/18/16 07:47 Urine Culture - Final Urine,[place] Yeast Species Lab Studies 12/20/16 12/20/16 12/20/16 Range/Units 12:51 11:56 09:51 WBC (4.8-10.8) K/uL RBC (3.80-5.20) Mil/uL Hgb (11.0-16.0) g/dL Hct (34.0-47.0) % MCV (81.0-99.0) fL MCH (27.0-31.0) pg MCHC (33.0-37.0) g/dL RDW (11.5-14.5) % Plt Count (130-400) K/uL MPV (7.2-11.7) fL Neut % (Auto) (50.0-75.0) % Lymph % (Auto) (20.0-40.0) % [place] % (Auto) (0.0-10.0) % Eos % (Auto) (0.0-4.0) % Baso % (Auto) (0.0-2.0) % Neut # (1.8-7.0) K/uL Lymph # (1.0-4.3) K/uL [place] # (0.0-0.8) K/uL Eos # (0.0-0.7) K/uL Baso # (0.0-0.2) K/uL Puncture Site Rr pCO2 36 (35-45) mm/Hg pO2 123 H (80-100) mm/Hg HCO3 22.3 (21-28) mmol/L ABG pH 7.38 (7.35-7.45) ABG Total CO2 22.4 (22-28) mmol/L ABG O2 Saturation 99.2 H (95-98) % ABG Base Excess -3.3 L (-2.0-3.0) mmol/L ABG Hemoglobin 12.4 (11.7-17.4) g/dL ABG Carboxyhemoglobin 2.0 H (0.5-1.5) % POC ABG HHb (Measured) 0.8 (0.0-5.0) % ABG Methemoglobin 0.7 (0.0-3.0) % Elton Test Pos A-a O2 Difference 46.0 mm/Hg Respiratory Index 0.4 Hgb O2 Saturation 96.5 (95.0-98.0) % Liter Flow 3.0 FiO2 30.0 % Sodium (132-148) mmol/L Potassium (3.6-5.2) mmol/L Chloride (98-107) mmol/L Carbon Dioxide (22-30) mmol/L Anion Gap (10-20) BUN (7-17) mg/dL Creatinine (0.7-1.2) mg/dL Est GFR ( Amer) Est GFR (Non-Af Amer) POC Glucose (mg/dL) 121 H (65-110) mg/dL Random Glucose (65-105) mg/dL Calcium (8.6-10.4) mg/dl Phosphorus (2.5-4.5) mg/dL Magnesium (1.6-2.3) mg/dL Total Bilirubin (0.2-1.3) mg/dL AST (14-36) U/L ALT (9-52) U/L Alkaline Phosphatase (38-126) U/L Total Protein (6.3-8.3) g/dL Albumin (3.5-5.0) g/dL Globulin (2.2-3.9) gm/dL Albumin/Globulin Ratio (1.0-2.1) Fluid Source Pleural/thoracentesi Fluid Appearance Sl cloudy (CLEAR) Fluid WBC 522.0 H (0.0-300.0) /mm3 Fluid RBC 324.0 H (0.0-0.0) /mm3 Fluid Tot Cell Count 100 H (0-0) Fluid Neutrophils 92.0 H (0-0) % Fluid Lymphocytes 7.0 H (0-0) % Fld Monocyte/Macrophag 1 H (0-0) % Fluid Comment 12/20/16 12/20/16 Range/Units 06:25 06:25 WBC 6.2 (4.8-10.8) K/uL RBC 4.13 (3.80-5.20) Mil/uL Hgb 13.1 (11.0-16.0) g/dL Hct 39.6 (34.0-47.0) % MCV 96.0 (81.0-99.0) fL MCH 31.8 H (27.0-31.0) pg MCHC 33.1 (33.0-37.0) g/dL RDW 20.4 H (11.5-14.5) % Plt Count 165 (130-400) K/uL MPV 10.7 (7.2-11.7) fL Neut % (Auto) 76.7 H (50.0-75.0) % Lymph % (Auto) 15.3 L (20.0-40.0) % [place] % (Auto) 6.8 (0.0-10.0) % Eos % (Auto) 0.3 (0.0-4.0) % Baso % (Auto) 0.9 (0.0-2.0) % Neut # 4.7 (1.8-7.0) K/uL Lymph # 0.9 L (1.0-4.3) K/uL [place] # 0.4 (0.0-0.8) K/uL Eos # 0.0 (0.0-0.7) K/uL Baso # 0.1 (0.0-0.2) K/uL Puncture Site pCO2 (35-45) mm/Hg pO2 (80-100) mm/Hg HCO3 (21-28) mmol/L ABG pH (7.35-7.45) ABG Total CO2 (22-28) mmol/L ABG O2 Saturation (95-98) % ABG Base Excess (-2.0-3.0) mmol/L ABG Hemoglobin (11.7-17.4) g/dL ABG Carboxyhemoglobin (0.5-1.5) % POC ABG HHb (Measured) (0.0-5.0) % ABG Methemoglobin (0.0-3.0) % Elton Test A-a O2 Difference mm/Hg Respiratory Index Hgb O2 Saturation (95.0-98.0) % Liter Flow FiO2 % Sodium 141 (132-148) mmol/L Potassium 3.8 (3.6-5.2) mmol/L Chloride 112 H (98-107) mmol/L Carbon Dioxide 20 L (22-30) mmol/L Anion Gap 13 (10-20) BUN 25 H (7-17) mg/dL Creatinine 0.6 L (0.7-1.2) mg/dL Est GFR ( Amer) > 60 Est GFR (Non-Af Amer) > 60 POC Glucose (mg/dL) (65-110) mg/dL Random Glucose 77 (65-105) mg/dL Calcium 8.8 (8.6-10.4) mg/dl Phosphorus 3.2 (2.5-4.5) mg/dL Magnesium 1.7 (1.6-2.3) mg/dL Total Bilirubin 2.2 H (0.2-1.3) mg/dL AST 35 (14-36) U/L ALT 25 (9-52) U/L Alkaline Phosphatase 104 (38-126) U/L Total Protein 5.1 L (6.3-8.3) g/dL Albumin 3.1 L (3.5-5.0) g/dL Globulin 2.0 L (2.2-3.9) gm/dL Albumin/Globulin Ratio 1.6 (1.0-2.1) Fluid Source Fluid Appearance (CLEAR) Fluid WBC (0.0-300.0) /mm3 Fluid RBC (0.0-0.0) /mm3 Fluid Tot Cell Count (0-0) Fluid Neutrophils (0-0) % Fluid Lymphocytes (0-0) % Fld Monocyte/Macrophag (0-0) % Fluid Comment Laboratory Results - last 24 hr 12/20/16 12/20/16 12/20/16 06:25 06:25 09:51 WBC 6.2 RBC 4.13 Hgb 13.1 Hct 39.6 MCV 96.0 MCH 31.8 H MCHC 33.1 RDW 20.4 H Plt Count 165 MPV 10.7 Neut % (Auto) 76.7 H Lymph % (Auto) 15.3 L [place] % (Auto) 6.8 Eos % (Auto) 0.3 Baso % (Auto) 0.9 Neut # 4.7 Lymph # 0.9 L [place] # 0.4 Eos # 0.0 Baso # 0.1 Puncture Site pCO2 pO2 HCO3 ABG pH ABG Total CO2 ABG O2 Saturation ABG Base Excess ABG Hemoglobin ABG Carboxyhemoglobin POC ABG HHb (Measured) ABG Methemoglobin Elton Test A-a O2 Difference Respiratory Index Hgb O2 Saturation Liter Flow FiO2 Sodium 141 Potassium 3.8 Chloride 112 H Carbon Dioxide 20 L Anion Gap 13 BUN 25 H Creatinine 0.6 L Est GFR ( Amer) > 60 Est GFR (Non-Af Amer) > 60 POC Glucose (mg/dL) Random Glucose 77 Calcium 8.8 Phosphorus 3.2 Magnesium 1.7 Total Bilirubin 2.2 H AST 35 ALT 25 Alkaline Phosphatase 104 Total Protein 5.1 L Albumin 3.1 L Globulin 2.0 L Albumin/Globulin Ratio 1.6 Fluid Source Pleural/thoracentesi Fluid Appearance Sl cloudy Fluid WBC 522.0 H Fluid RBC 324.0 H Fluid Tot Cell Count 100 H Fluid Neutrophils 92.0 H Fluid Lymphocytes 7.0 H Fld Monocyte/Macrophag 1 H Fluid Comment 12/20/16 12/20/16 11:56 12:51 WBC RBC Hgb Hct MCV MCH MCHC RDW Plt Count MPV Neut % (Auto) Lymph % (Auto) [place] % (Auto) Eos % (Auto) Baso % (Auto) Neut # Lymph # [place] # Eos # Baso # Puncture Site Rr pCO2 36 pO2 123 H HCO3 22.3 ABG pH 7.38 ABG Total CO2 22.4 ABG O2 Saturation 99.2 H ABG Base Excess -3.3 L ABG Hemoglobin 12.4 ABG Carboxyhemoglobin 2.0 H POC ABG HHb (Measured) 0.8 ABG Methemoglobin 0.7 Elton Test Pos A-a O2 Difference 46.0 Respiratory Index 0.4 Hgb O2 Saturation 96.5 Liter Flow 3.0 FiO2 30.0 Sodium Potassium Chloride Carbon Dioxide Anion Gap BUN Creatinine Est GFR ( Amer) Est GFR (Non-Af Amer) POC Glucose (mg/dL) 121 H Random Glucose Calcium Phosphorus Magnesium Total Bilirubin AST ALT Alkaline Phosphatase Total Protein Albumin Globulin Albumin/Globulin Ratio Fluid Source Fluid Appearance Fluid WBC Fluid RBC Fluid Tot Cell Count Fluid Neutrophils Fluid Lymphocytes Fld Monocyte/Macrophag Fluid Comment Critical Care Progress Note - Nutrition Nutrition: Nutrition Category Date Time Status Heart Healthy Diet [DIET] Diets 12/11/16 Dinner Active Attending/Attestation - Attestation I have personally seen and examined this patient.: Yes I have fully participated in the care of the patient.: Yes I have reviewed all pertinent clinical information: Yes Notes (Text): 12/20/16 16:40 I have seen and examined the patient. Medical records, lab studies, and imaging were reviewed by me and a management plan was formulated on multidisciplinary rounds with resident Dr. Cruz. I agree with their documented assessment and plan. Patient underwent thoracentesis today, with good improvement in breathing and CXR appearance. effusion most likely secondary to CHF. Starting on diuretic Lasix. Sepsis secondary to UTI with gram negative sepsis on Meropenem, also on fluconazole for incidental yeast (unsure whether pathogen, treating in critically ill patient). Critical Care Time 35 minutes. Multi-disciplinary rounds were performed with house staff, nursing, speech therapy, respiratory therapy, pharmacy and nutrition with integrated input from the primary team/attending and other consulting services. The documented time is cumulative and includes review of patient data/exams/labs/chart review and examination of the patient on rounds and throughout the day; time is exclusive of any procedures or teaching time. 12/20/16 16:42 <Daja Cruz - Last Filed: 12/20/16 18:38> CCU Subjective - Physician Review Subjective (Free Text): Patient seen and examined at bedside and in no acute distress. Patient says she feels "alright." Patient denies shortness of breath, chest pain, abdominal pain , nausea, vomiting, constipation or diarrhea. CCU Objective - Vital Signs / Intake & Output Vital Signs (Last 4 hours): Vital Signs Pulse Resp BP Pulse Ox 12/20/16 06:42 99 H 24 115/77 100 12/20/16 06:12 126 H 25 H 120/79 100 12/20/16 06:00 96 H 19 100 12/20/16 05:42 97 H 31 H 111/81 100 12/20/16 05:12 108 H 30 H 124/80 100 12/20/16 05:00 130 H 21 100 12/20/16 04:42 127 H 26 H 117/80 100 12/20/16 04:12 100 H 28 H 110/59 L 100 12/20/16 04:00 106 H 35 H 100 12/20/16 03:42 89 23 94/55 L 100 12/20/16 03:30 112 H 16 100 12/20/16 03:12 111 H 13 105/59 L 100 Intake and Output (Last 8hrs): Intake & Output 12/19/16 12/20/16 12/20/16 22:59 06:59 14:59 Intake Total 230 250 Output Total 900 1100 Balance -670 -850 Weight 137 lb Intake: Intake, IV Amount 150 200 Right Wrist 150 200 Oral 80 50 Output: Urine 900 1100 Urethral (Marlow) 900 1100 Other: # Bowel Movements 0 0 - Physical Exam Head: Positive for: Atraumatic, Normocephalic Extroacular Muscles: Positive for: EOMI Mouth: Positive for: Moist Mucous Membranes Respiratory/Chest: Positive for: Good Air Exchange, Tachypneic Cardiovascular: Positive for: Normal S1, S2, Tachycardic Abdomen: Negative for: Tenderness, Distention Neurological: Positive for: GCS=15 Skin: Positive for: Warm Psychiatric: Positive for: Alert. Negative for: Oriented x 3 - Medications Active Medications: Active Medications Generic Name Dose Route Start Last Admin Trade Name Freq PRN Reason Stop Dose Admin Carbidopa/Levodopa 1 tab 12/15/16 14:00 12/19/16 21:09 Sinemet PO 1 tab QID ANALISA Administration Docusate Sodium 100 mg 12/14/16 14:00 12/19/16 18:04 Colace PO Not Given TID ANALISA Entacapone 200 mg 12/11/16 19:30 12/19/16 17:05 Comtan PO 200 mg ACBD ANALISA Administration Furosemide 20 mg 12/20/16 10:00 Lasix IVP DAILY [facility] Heparin Sodium (Porcine) 5,000 units 12/19/16 17:00 12/20/16 05:54 Heparin SC 5,000 units Q12H ANALISA Administration Imipenem/Cilastatin Sodium 500 100 mls @ 100 mls/hr 12/14/16 12:30 12/20/16 06:31 mg/ Sodium Chloride IVPB 100 mls/hr Q6H ANALISA Administration Fluconazole 50 mls @ 100 mls/hr 12/19/16 16:00 12/19/16 16:53 Diflucan Iv 100 Mg/50 Ml Ns IVPB 100 mls/hr DAILY ANALISA Administration Metoprolol Tartrate 12.5 mg 12/12/16 22:30 12/19/16 17:55 Lopressor PO 12.5 mg BID ANALISA Administration Pantoprazole Sodium 40 mg 12/19/16 17:00 12/19/16 17:55 Protonix Inj IVP 40 mg DAILY ANALISA Administration Polyethylene Glycol 17 gm 12/14/16 11:09 Miralax PO Q8H PRN Constipation Spironolactone 25 mg 12/15/16 10:00 12/19/16 10:52 Aldactone PO Not Given DAILY ANALISA - Patient Studies Lab Studies: Microbiology Studies 12/18/16 07:05 Blood Culture - Preliminary Blood-Thru Central Line NO GROWTH AFTER 48 HOURS 12/18/16 07:47 Urine Culture - Final Urine,[place] Yeast Species 12/18/16 05:40 Blood Culture - Preliminary Blood-Thru Central Line NO GROWTH AFTER 24 HOURS Lab Studies 12/20/16 12/20/16 12/19/16 Range/Units 06:25 06:25 16:10 WBC 6.2 (4.8-10.8) K/uL RBC 4.13 (3.80-5.20) Mil/uL Hgb 13.1 (11.0-16.0) g/dL Hct 39.6 (34.0-47.0) % MCV 96.0 (81.0-99.0) fL MCH 31.8 H (27.0-31.0) pg MCHC 33.1 (33.0-37.0) g/dL RDW 20.4 H (11.5-14.5) % Plt Count 165 (130-400) K/uL MPV 10.7 (7.2-11.7) fL Neut % (Auto) 76.7 H (50.0-75.0) % Lymph % (Auto) 15.3 L (20.0-40.0) % [place] % (Auto) 6.8 (0.0-10.0) % Eos % (Auto) 0.3 (0.0-4.0) % Baso % (Auto) 0.9 (0.0-2.0) % Neut # 4.7 (1.8-7.0) K/uL Lymph # 0.9 L (1.0-4.3) K/uL [place] # 0.4 (0.0-0.8) K/uL Eos # 0.0 (0.0-0.7) K/uL Baso # 0.1 (0.0-0.2) K/uL Puncture Site Rra pCO2 25 L (35-45) mm/Hg pO2 182 H (80-100) mm/Hg HCO3 22.2 (21-28) mmol/L ABG pH 7.48 H (7.35-7.45) ABG Total CO2 19.4 L (22-28) mmol/L ABG O2 Saturation 99.8 H (95-98) % ABG Base Excess -3.5 L (-2.0-3.0) mmol/L ABG Hemoglobin 11.9 (11.7-17.4) g/dL ABG Carboxyhemoglobin 1.8 H (0.5-1.5) % POC ABG HHb (Measured) 0.2 (0.0-5.0) % ABG Methemoglobin 1.4 (0.0-3.0) % Elton Test Pos A-a O2 Difference 72.0 mm/Hg Respiratory Index 0.4 Hgb O2 Saturation 96.6 (95.0-98.0) % FiO2 40.0 % Sodium 141 (132-148) mmol/L Potassium 3.8 (3.6-5.2) mmol/L Chloride 112 H (98-107) mmol/L Carbon Dioxide 20 L (22-30) mmol/L Anion Gap 13 (10-20) BUN 25 H (7-17) mg/dL Creatinine 0.6 L (0.7-1.2) mg/dL Est GFR ( Amer) > 60 Est GFR (Non-Af Amer) > 60 POC Glucose (mg/dL) (65-110) mg/dL Random Glucose 77 (65-105) mg/dL Calcium 8.8 (8.6-10.4) mg/dl Phosphorus 3.2 (2.5-4.5) mg/dL Magnesium 1.7 (1.6-2.3) mg/dL Total Bilirubin 2.2 H (0.2-1.3) mg/dL AST 35 (14-36) U/L ALT 25 (9-52) U/L Alkaline Phosphatase 104 (38-126) U/L Total Protein 5.1 L (6.3-8.3) g/dL Albumin 3.1 L (3.5-5.0) g/dL Globulin 2.0 L (2.2-3.9) gm/dL Albumin/Globulin Ratio 1.6 (1.0-2.1) 12/19/16 12/19/16 12/19/16 Range/Units 11:41 07:06 06:55 WBC 6.0 (4.8-10.8) K/uL RBC 3.78 L (3.80-5.20) Mil/uL Hgb 12.0 (11.0-16.0) g/dL Hct 36.2 (34.0-47.0) % MCV 95.6 (81.0-99.0) fL MCH 31.7 H (27.0-31.0) pg MCHC 33.2 (33.0-37.0) g/dL RDW 20.2 H (11.5-14.5) % Plt Count 181 (130-400) K/uL MPV 10.7 (7.2-11.7) fL Neut % (Auto) 71.6 (50.0-75.0) % Lymph % (Auto) 20.0 (20.0-40.0) % [place] % (Auto) 7.5 (0.0-10.0) % Eos % (Auto) 0.6 (0.0-4.0) % Baso % (Auto) 0.3 (0.0-2.0) % Neut # 4.3 (1.8-7.0) K/uL Lymph # 1.2 (1.0-4.3) K/uL [place] # 0.5 (0.0-0.8) K/uL Eos # 0.0 (0.0-0.7) K/uL Baso # 0.0 (0.0-0.2) K/uL Puncture Site pCO2 (35-45) mm/Hg pO2 (80-100) mm/Hg HCO3 (21-28) mmol/L ABG pH (7.35-7.45) ABG Total CO2 (22-28) mmol/L ABG O2 Saturation (95-98) % ABG Base Excess (-2.0-3.0) mmol/L ABG Hemoglobin (11.7-17.4) g/dL ABG Carboxyhemoglobin (0.5-1.5) % POC ABG HHb (Measured) (0.0-5.0) % ABG Methemoglobin (0.0-3.0) % Elton Test A-a O2 Difference mm/Hg Respiratory Index Hgb O2 Saturation (95.0-98.0) % FiO2 % Sodium (132-148) mmol/L Potassium (3.6-5.2) mmol/L Chloride (98-107) mmol/L Carbon Dioxide (22-30) mmol/L Anion Gap (10-20) BUN (7-17) mg/dL Creatinine (0.7-1.2) mg/dL Est GFR ( Amer) Est GFR (Non-Af Amer) POC Glucose (mg/dL) 124 H 93 (65-110) mg/dL Random Glucose (65-105) mg/dL Calcium (8.6-10.4) mg/dl Phosphorus (2.5-4.5) mg/dL Magnesium (1.6-2.3) mg/dL Total Bilirubin (0.2-1.3) mg/dL AST (14-36) U/L ALT (9-52) U/L Alkaline Phosphatase (38-126) U/L Total Protein (6.3-8.3) g/dL Albumin (3.5-5.0) g/dL Globulin (2.2-3.9) gm/dL Albumin/Globulin Ratio (1.0-2.1) 12/19/16 Range/Units 04:00 WBC (4.8-10.8) K/uL RBC (3.80-5.20) Mil/uL Hgb (11.0-16.0) g/dL Hct (34.0-47.0) % MCV (81.0-99.0) fL MCH (27.0-31.0) pg MCHC (33.0-37.0) g/dL RDW (11.5-14.5) % Plt Count (130-400) K/uL MPV (7.2-11.7) fL Neut % (Auto) (50.0-75.0) % Lymph % (Auto) (20.0-40.0) % [place] % (Auto) (0.0-10.0) % Eos % (Auto) (0.0-4.0) % Baso % (Auto) (0.0-2.0) % Neut # (1.8-7.0) K/uL Lymph # (1.0-4.3) K/uL [place] # (0.0-0.8) K/uL Eos # (0.0-0.7) K/uL Baso # (0.0-0.2) K/uL Puncture Site pCO2 (35-45) mm/Hg pO2 (80-100) mm/Hg HCO3 (21-28) mmol/L ABG pH (7.35-7.45) ABG Total CO2 (22-28) mmol/L ABG O2 Saturation (95-98) % ABG Base Excess (-2.0-3.0) mmol/L ABG Hemoglobin (11.7-17.4) g/dL ABG Carboxyhemoglobin (0.5-1.5) % POC ABG HHb (Measured) (0.0-5.0) % ABG Methemoglobin (0.0-3.0) % Elton Test A-a O2 Difference mm/Hg Respiratory Index Hgb O2 Saturation (95.0-98.0) % FiO2 % Sodium 143 (132-148) mmol/L Potassium 3.7 (3.6-5.2) mmol/L Chloride 113 H (98-107) mmol/L Carbon Dioxide 19 L (22-30) mmol/L Anion Gap 15 (10-20) BUN 26 H (7-17) mg/dL Creatinine 0.7 (0.7-1.2) mg/dL Est GFR ( Amer) > 60 Est GFR (Non-Af Amer) > 60 POC Glucose (mg/dL) (65-110) mg/dL Random Glucose 83 (65-105) mg/dL Calcium 8.7 (8.6-10.4) mg/dl Phosphorus (2.5-4.5) mg/dL Magnesium (1.6-2.3) mg/dL Total Bilirubin 1.8 H (0.2-1.3) mg/dL AST 29 (14-36) U/L ALT 27 (9-52) U/L Alkaline Phosphatase 94 (38-126) U/L Total Protein 4.5 L (6.3-8.3) g/dL Albumin 2.6 L (3.5-5.0) g/dL Globulin 1.8 L (2.2-3.9) gm/dL Albumin/Globulin Ratio 1.4 (1.0-2.1) Laboratory Results - last 24 hr 12/19/16 12/19/16 12/19/16 04:00 06:55 07:06 WBC 6.0 RBC 3.78 L Hgb 12.0 Hct 36.2 MCV 95.6 MCH 31.7 H MCHC 33.2 RDW 20.2 H Plt Count 181 MPV 10.7 Neut % (Auto) 71.6 Lymph % (Auto) 20.0 [place] % (Auto) 7.5 Eos % (Auto) 0.6 Baso % (Auto) 0.3 Neut # 4.3 Lymph # 1.2 [place] # 0.5 Eos # 0.0 Baso # 0.0 Puncture Site pCO2 pO2 HCO3 ABG pH ABG Total CO2 ABG O2 Saturation ABG Base Excess ABG Hemoglobin ABG Carboxyhemoglobin POC ABG HHb (Measured) ABG Methemoglobin Elton Test A-a O2 Difference Respiratory Index Hgb O2 Saturation FiO2 Sodium 143 Potassium 3.7 Chloride 113 H Carbon Dioxide 19 L Anion Gap 15 BUN 26 H Creatinine 0.7 Est GFR ( Amer) > 60 Est GFR (Non-Af Amer) > 60 POC Glucose (mg/dL) 93 Random Glucose 83 Calcium 8.7 Phosphorus Magnesium Total Bilirubin 1.8 H AST 29 ALT 27 Alkaline Phosphatase 94 Total Protein 4.5 L Albumin 2.6 L Globulin 1.8 L Albumin/Globulin Ratio 1.4 12/19/16 12/19/16 12/20/16 11:41 16:10 06:25 WBC 6.2 RBC 4.13 Hgb 13.1 Hct 39.6 MCV 96.0 MCH 31.8 H MCHC 33.1 RDW 20.4 H Plt Count 165 MPV 10.7 Neut % (Auto) 76.7 H Lymph % (Auto) 15.3 L [place] % (Auto) 6.8 Eos % (Auto) 0.3 Baso % (Auto) 0.9 Neut # 4.7 Lymph # 0.9 L [place] # 0.4 Eos # 0.0 Baso # 0.1 Puncture Site Rra pCO2 25 L pO2 182 H HCO3 22.2 ABG pH 7.48 H ABG Total CO2 19.4 L ABG O2 Saturation 99.8 H ABG Base Excess -3.5 L ABG Hemoglobin 11.9 ABG Carboxyhemoglobin 1.8 H POC ABG HHb (Measured) 0.2 ABG Methemoglobin 1.4 [place] Test Pos A-a O2 Difference 72.0 Respiratory Index 0.4 Hgb O2 Saturation 96.6 FiO2 40.0 Sodium Potassium Chloride Carbon Dioxide Anion Gap BUN Creatinine Est GFR ( Amer) Est GFR (Non-Af Amer) POC Glucose (mg/dL) 124 H Random Glucose Calcium Phosphorus Magnesium Total Bilirubin AST ALT Alkaline Phosphatase Total Protein Albumin Globulin Albumin/Globulin Ratio 12/20/16 06:25 WBC RBC Hgb Hct MCV MCH MCHC RDW Plt Count MPV Neut % (Auto) Lymph % (Auto) [place] % (Auto) Eos % (Auto) Baso % (Auto) Neut # Lymph # [place] # Eos # Baso # Puncture Site pCO2 pO2 HCO3 ABG pH ABG Total CO2 ABG O2 Saturation ABG Base Excess ABG Hemoglobin ABG Carboxyhemoglobin POC ABG HHb (Measured) ABG Methemoglobin [place] Test A-a O2 Difference Respiratory Index Hgb O2 Saturation FiO2 Sodium 141 Potassium 3.8 Chloride 112 H Carbon Dioxide 20 L Anion Gap 13 BUN 25 H Creatinine 0.6 L Est GFR ( Amer) > 60 Est GFR (Non-Af Amer) > 60 POC Glucose (mg/dL) Random Glucose 77 Calcium 8.8 Phosphorus 3.2 Magnesium 1.7 Total Bilirubin 2.2 H AST 35 ALT 25 Alkaline Phosphatase 104 Total Protein 5.1 L Albumin 3.1 L Globulin 2.0 L Albumin/Globulin Ratio 1.6 Fingerstick Blood Sugar Results: 124 Review of Systems - Constitutional Constitutional: absent: Chills, Sweats - Cardiovascular Cardiovascular: absent: Chest Pain, Dyspnea, Leg Edema - Respiratory Respiratory: absent: Cough, Wheezing - Gastrointestinal Gastrointestinal: absent: Constipation, Diarrhea, Nausea, Vomiting - Genitourinary Genitourinary: absent: Difficulty Urinating Additional comments: marlow in place - Integumentary Integumentary: absent: Rash - Psychiatric Psychiatric: Confusion Critical Care Progress Note - Nutrition Nutrition: Nutrition Category Date Time Status Heart Healthy Diet [DIET] Diets 12/11/16 Dinner Active Assessment/Plan - Assessment and Plan (Free Text) Assessment: Patient is 65 y/o F with Pmhx of non-ischemic cardiomyopathy, Parkinson's disease, CHF, hypotension, and diffuse large cell lymphoma admitted for urosepsis on 12/11 transferred to ICU on 12/19 for worsening respiratory distress. Neuro: AMS, hx Parkinson disease * Carbidopa/Levodopa * Comtan 200mg po ACBD * Head CT (12/11): stable limited age related neuro degeneraative changes appear reiterated without definite acute interval findings as discussed in full report * Brain MRI (12/13): no evidence of acute pathology in the brain. No evidence of enhancing mass lesion, mess effect, or midline shift. Cardio: hx CHF with dilated cardiomyopathy * Echo 10/04/16 showed LVEF 27%, pulmonary HTN and evidence of dilated cardiomyopathy. ICD implantation was recommended for when patient was more stable * patient having persistent tachycardia, but refusing oral medications * Lopressor 12.5 mg po BID * Aldactone 25mg po daily * Dr. Da Silva consulted, help appreciated Pulm: respiratory distress 2/2 CHF * placed on BiPAP, ABG: pCO2: 25, pO2: 182, HCO3: 22.2, pH:7.48 * 12/20 off BiPAP, on NC @ 3L * f/u sputum culture * Lasix 20 mg daily * Cxray (12/19): increased right sided opacity may reflect infiltrate or pleural effusion. Trace left pleural effusion not excluded with atelectasis or infilitrate posterior to the left heart appearing increased. Stable cardiomegaly. * CTA (12/19): No pulmonary embolism, large right pleural effusion with compression atelectasis in the dependent portion of the right lung, mild cardiomegaly with moderate to large intra-abdominal ascites and anascara. * thoracentesis performed by Dr. Tang - 500cc clear yellow fluid removed * f/u pleural fluid studies Heme: hx of large cell lymphoma * in remission * heme/onc doctors: Dr. Moody, Dr. Nichole in [place] * needs port flushed (due, last done 6 weeks ago) GI: No acute symptoms at this time * Miralax as needed : Urosepsis 2/2 e. coli (12/11), yeast(12/18) in urine * Imipenem/cilastin * started Fluconazole (12/19/16) ID: * Blood and urine culture 12/11/16: E. Coli * Blood culture 12/18/16: negative * Urine culture 12/18/16: yeast * Imipenem/cilastin * started Fluconazole (12/19/16) * Dr. Lynn consulted, help appreciated Psych: delirium vs. anti-parkinson medication induced * Per Dr. Mishra, psych meds being held at this time Prophylaxis: * GI: Protonix 40mg daily * DVT: Heparin 5000 u q12h
[2016-12-20 09:53] LABS: BODY FLUID TYPE PLEURAL/THORACENTESI
--- NOTE | 2016-12-20 10:01 | PCM.SURG1 ---
Surgeon's Initial Post Op Note - Surgeon's Notes Surgeon: Monroe Tang MD Art Objects Repairer: NONE Type of Anesthesia: Local Pre-Operative Diagnosis: Right pleural effusion Operative Findings: US showed moderate right effusion Post-Operative Diagnosis: Right pleural effusion Operation Performed: US guided right thoracentesis Specimen/Specimens Removed: 500 cc of clear yellow fluid Estimated Blood Loss: EBL {In ML}: 0 Blood Products Given: N/A Drains Used: No Drains Post-Op Condition: Fair Date of Surgery/Procedure: 12/20/16 Time of Surgery/Procedure: 09:45
--- NOTE | 2016-12-20 10:11 | CP.PCM.CON ---
History of Present Illness - History of Present Illness History of Present Illness: Pulmonology Consult Note for Dr. Lyles's Service Reason for Consult: " " HPI: PMHx: PSHx: Meds: All: SHx FHx: Past Patient History - Tetanus Immunizations Tetanus Immunization: Unknown - Past Medical History & Family History Past Medical History?: Yes - Past Social History Smoking Status: Never Smoked Alcohol: None Drugs: Denies Home Situation {Lives}: With Family Domestic Violence: Negative - CARDIAC Hx Congestive Heart Failure: Yes Hx Hypertension: Yes - PULMONARY Hx Respiratory Disorders: No - NEUROLOGICAL Hx Parkinson's Disease: Yes - HEENT Hx HEENT Problems: No - RENAL Hx Chronic Kidney Disease: No - ENDOCRINE/METABOLIC Hx Endocrine Disorders: No - HEMATOLOGICAL/ONCOLOGICAL Hx Blood Disorders: Yes Hx Chemotherapy: Yes Other/Comment: " I HAVE SOME KIND OF CANCER IN MY BACK" - INTEGUMENTARY Hx Dermatological Problems: No - MUSCULOSKELETAL/RHEUMATOLOGICAL Hx Falls: No - GASTROINTESTINAL Hx Constipation: Yes - PSYCHIATRIC Hx Hallucinations: Yes Hx Schizophrenia: Yes Hx Substance Use: No - SURGICAL HISTORY Hx Surgeries: Yes Hx Orthopedic Surgery: Yes (Spine surgery ) Other/Comment: R subclavian shunt - ANESTHESIA Hx Anesthesia: Yes Hx Anesthesia Reactions: No Meds Allergies/Adverse Reactions: Allergies Allergy/AdvReac Type Severity Reaction Status Date / Time No Known Allergies Allergy Verified 12/11/16 12:40 - Medications Medications: Current Medications Carbidopa/Levodopa (Sinemet) 1 tab PO QID [facility] Last Admin: 12/20/16 09:46 Dose: Not Given Docusate Sodium (Colace) 100 mg PO TID [facility] Last Admin: 12/20/16 09:43 Dose: Not Given Entacapone (Comtan) 200 mg PO ACBD [facility] Last Admin: 12/20/16 09:43 Dose: Not Given Furosemide (Lasix) 20 mg IVP DAILY [facility] Last Admin: 12/20/16 09:44 Dose: Not Given Heparin Sodium (Porcine) (Heparin) 5,000 units SC Q12H [facility] Last Admin: 12/20/16 05:54 Dose: 5,000 units Imipenem/Cilastatin Sodium 500 (mg/ Sodium Chloride) 100 mls @ 100 mls/hr IVPB Q6H [facility] Last Admin: 12/20/16 06:31 Dose: 100 mls/hr Fluconazole (Diflucan Iv 100 Mg/50 Ml Ns) 50 mls @ 100 mls/hr IVPB DAILY [facility] Last Admin: 12/19/16 16:53 Dose: 100 mls/hr Metoprolol Tartrate (Lopressor) 12.5 mg PO BID [facility] Last Admin: 12/20/16 09:44 Dose: Not Given Pantoprazole Sodium (Protonix Inj) 40 mg IVP DAILY [facility] Last Admin: 12/19/16 17:55 Dose: 40 mg Polyethylene Glycol (Miralax) 17 gm PO Q8H PRN PRN Reason: Constipation Spironolactone (Aldactone) 25 mg PO DAILY [facility] Last Admin: 12/20/16 09:44 Dose: Not Given Results - Vital Signs Recent Vital Signs: Last Vital Signs Temp 98.7 F 12/19/16 18:00 Pulse 138 H 12/20/16 09:00 Resp 21 12/20/16 09:00 BP 87/48 L 12/20/16 09:44 Pulse Ox 100 12/20/16 08:42 - Labs Result Diagrams: 12/20/16 06:25 12/20/16 06:25 Labs: Laboratory Results - last 24 hr 12/19/16 12/19/16 12/20/16 11:41 16:10 06:25 WBC 6.2 RBC 4.13 Hgb 13.1 Hct 39.6 MCV 96.0 MCH 31.8 H MCHC 33.1 RDW 20.4 H Plt Count 165 MPV 10.7 Neut % (Auto) 76.7 H Lymph % (Auto) 15.3 L Holt % (Auto) 6.8 Eos % (Auto) 0.3 Baso % (Auto) 0.9 Neut # 4.7 Lymph # 0.9 L Holt # 0.4 Eos # 0.0 Baso # 0.1 Puncture Site Rra pCO2 25 L pO2 182 H HCO3 22.2 ABG pH 7.48 H ABG Total CO2 19.4 L ABG O2 Saturation 99.8 H ABG Base Excess -3.5 L ABG Hemoglobin 11.9 ABG Carboxyhemoglobin 1.8 H POC ABG HHb (Measured) 0.2 ABG Methemoglobin 1.4 Elton Test Pos A-a O2 Difference 72.0 Respiratory Index 0.4 Hgb O2 Saturation 96.6 FiO2 40.0 Sodium Potassium Chloride Carbon Dioxide Anion Gap BUN Creatinine Est GFR ( Amer) Est GFR (Non-Af Amer) POC Glucose (mg/dL) 124 H Random Glucose Calcium Phosphorus Magnesium Total Bilirubin AST ALT Alkaline Phosphatase Total Protein Albumin Globulin Albumin/Globulin Ratio Fluid Source 12/20/16 12/20/16 06:25 09:51 WBC RBC Hgb Hct MCV MCH MCHC RDW Plt Count MPV Neut % (Auto) Lymph % (Auto) Holt % (Auto) Eos % (Auto) Baso % (Auto) Neut # Lymph # Holt # Eos # Baso # Puncture Site pCO2 pO2 HCO3 ABG pH ABG Total CO2 ABG O2 Saturation ABG Base Excess ABG Hemoglobin ABG Carboxyhemoglobin POC ABG HHb (Measured) ABG Methemoglobin Elton Test A-a O2 Difference Respiratory Index Hgb O2 Saturation FiO2 Sodium 141 Potassium 3.8 Chloride 112 H Carbon Dioxide 20 L Anion Gap 13 BUN 25 H Creatinine 0.6 L Est GFR ( Amer) > 60 Est GFR (Non-Af Amer) > 60 POC Glucose (mg/dL) Random Glucose 77 Calcium 8.8 Phosphorus 3.2 Magnesium 1.7 Total Bilirubin 2.2 H AST 35 ALT 25 Alkaline Phosphatase 104 Total Protein 5.1 L Albumin 3.1 L Globulin 2.0 L Albumin/Globulin Ratio 1.6 Fluid Source Pleural/thoracentesi Assessment & Plan - Assessment and Plan (Free Text) Plan: CT Chest 12/19: 1. No pulmonary embolism. 2. Large right pleural effusion with compression atelectasis in the dependent portion of the right lung. 3. Mild cardiomegaly with Moderate to large intra-abdominal ascites and anasarca DW Ritchie Rosales DO, PGY-1
--- NOTE | 2016-12-20 10:29 | US ---
PROCEDURE: Date of procedure: 12/20/2016 Procedure: 1. Ultrasound-guided Right thoracentesis, CPT 73017 Medications: 6cc 1% Lidocaine HISTORY: Right pleural effusion TECHNIQUE: Following informed consent ,the Patients' right chest was marked. Procedure time-out was called, and the patient was placed in the sitting position and limited ultrasound showed a small right effusion. The patient's right back was prepped and draped in the usual sterile fashion. After the skin was anesthetized with lidocaine, a drainage catheter was advanced under ultrasound guidance into the pleural space. Ultrasound-guided thoracentesis was performed. A total of 500 cubic centimeters of straw-colored fluid removed without complication. A Xeroform dressing was applied. IMPRESSION: Ultrasound guided Right thoracentesis. There were no immediate complications.
[2016-12-20] MEDS: Fluconazole IV 100mg/50 ml NS 50 ML IVPB SCH (10:50)
[2016-12-20 10:51] LABS: BF GROSS APPEARANCE SL CLOUDY (CLEAR); BODY FLUID TOTAL COUNT 100 (0-0)
[2016-12-20 12:57] LABS: ABG ALLEN TEST POS; ARTERIAL BLOOD HGB O2 SAT 96.5 % (95.0-98.0); DRAW SITE RR; HHB 0.8 % (0.0-5.0); METHEMOGLOBIN 0.7 % (0.0-3.0)
--- NOTE | 2016-12-20 13:25 | RAD ---
HISTORY: post thoracentesis COMPARISON: Chest x-ray performed 12/19/16 TECHNIQUE: Chest, one view. FINDINGS: Examination limited by habitus. Right-sided MediPort extends to the SVC. LUNGS: Mild interstitial prominence may reflect infection or edema. Please note that chest x-ray has limited sensitivity for the detection of pulmonary masses. PLEURA: No significant pleural effusion identified. No definite pneumothorax . CARDIOVASCULAR: Cardiomegaly. OSSEOUS STRUCTURES: Degenerative changes of the spine. VISUALIZED UPPER ABDOMEN: Elevation of the right hemidiaphragm. OTHER FINDINGS: None. IMPRESSION: Right-sided MediPort. Mild interstitial prominence may reflect infection or edema. Cardiomegaly.
--- NOTE | 2016-12-20 15:48 | CP.PCM.PN ---
<Sahil Dugana - Last Filed: 12/20/16 15:57> Subjective - Date & Time of Evaluation Date of Evaluation: 12/20/16 Time of Evaluation: 09:00 - Subjective Subjective: Pulmonology Consult Note for Dr. Lyles's Service Patient was seen and examined at bedside. Patient is breathing better s/p thoracentesis - 500cc removed. Objective - Vital Signs/Intake and Output Vital Signs (last 24 hours): Temp Pulse Resp BP Pulse Ox 98.7 F 129 H 35 H 101/69 100 12/19/16 18:00 12/20/16 12:30 12/20/16 12:30 12/20/16 12:12 12/20/16 11:42 Intake and Output: 12/20/16 12/20/16 06:59 18:59 Intake Total 350 440 Output Total 1700 700 Balance -1350 -260 - Medications Medications: Current Medications Carbidopa/Levodopa (Sinemet) 1 tab PO QID [facility] Last Admin: 12/20/16 13:41 Dose: Not Given Docusate Sodium (Colace) 100 mg PO TID [facility] Last Admin: 12/20/16 13:41 Dose: Not Given Entacapone (Comtan) 200 mg PO ACBD [facility] Last Admin: 12/20/16 09:43 Dose: Not Given Furosemide (Lasix) 20 mg IVP DAILY [facility] Last Admin: 12/20/16 09:44 Dose: Not Given Heparin Sodium (Porcine) (Heparin) 5,000 units SC Q12H [facility] Last Admin: 12/20/16 05:54 Dose: 5,000 units Fluconazole (Diflucan Iv 100 Mg/50 Ml Ns) 50 mls @ 100 mls/hr IVPB DAILY [facility] Last Admin: 12/20/16 10:50 Dose: 100 mls/hr Imipenem/Cilastatin Sodium 500 (mg/ Dextrose) 100 mls @ 100 mls/hr IVPB Q6H [facility] Metoprolol Tartrate (Lopressor) 12.5 mg PO BID [facility] Last Admin: 12/20/16 09:44 Dose: Not Given Pantoprazole Sodium (Protonix Inj) 40 mg IVP DAILY [facility] Last Admin: 12/20/16 10:50 Dose: 40 mg Polyethylene Glycol (Miralax) 17 gm PO Q8H PRN PRN Reason: Constipation Spironolactone (Aldactone) 25 mg PO DAILY [facility] Last Admin: 12/20/16 09:44 Dose: Not Given - Labs Labs: 12/20/16 06:25 12/20/16 06:25 PT 16.7 SECONDS (9.7-12.2) H 12/11/16 13:34 INR 1.5 12/11/16 13:34 APTT 30 SECONDS (21-34) 12/11/16 13:34 - Additional Findings Additional findings: - Constitutional Appears: Non-toxic, No Acute Distress, Chronically Ill - Respiratory Exam Respiratory Exam: Accessory Muscle Use, Decreased Breath Sounds, Rales, NORMAL BREATHING PATTERN. absent: Respiratory Distress - Cardiovascular Exam Cardiovascular Exam: Tachycardia, REGULAR RHYTHM, +S1, +S2 - GI/Abdominal Exam GI & Abdominal Exam: Soft, Normal Bowel Sounds. absent: Distended, Firm, Guarding, Tenderness - Neurological Exam Neurological Exam: Alert, Awake - Psychiatric Exam Psychiatric exam: Normal Affect, Normal Mood Assessment and Plan - Assessment and Plan (Free Text) Plan: Fluid overload Assessment & Plan: Patient with worsening chest X ray and increased breathing effort. Placed on BiPAP, ABG: pCO2: 25, pO2: 182, HCO3: 22.2, pH:7.48 CT Chest 12/19: 1. No pulmonary embolism. 2. Large right pleural effusion with compression atelectasis in the dependent portion of the right lung. 3. Mild cardiomegaly with Moderate to large intra-abdominal ascites and anasarca Currently in ICU for closer monitoring and diuresis S/P thoracentesis - 500 cc removed Status: Acute Sepsis Assessment & Plan: Escherichia coli sepsis secondary to uterine tract infect Continue antibiotics Continue IV fluids Monitor lactate level Consider NG tube feeding Chest Xray on 12/18 showed venous congestion and repeat today showed worsening of fluid in lungs Status: Acute Congestive cardiomyopathy Status: Chronic Parkinson disease Status: Chronic History of B-cell lymphoma Status: Chronic DW Ritchie Rosales DO, PGY-1 <Yordan Lyles - Last Filed: 12/20/16 17:39> Subjective - Date & Time of Evaluation Time of Evaluation: 11:00 Objective - Vital Signs/Intake and Output Vital Signs (last 24 hours): Temp Pulse Resp BP Pulse Ox 98.7 F 127 H 28 H 117/65 100 12/19/16 18:00 12/20/16 16:30 12/20/16 16:30 12/20/16 16:12 12/20/16 11:42 Intake and Output: 12/20/16 12/20/16 06:59 18:59 Intake Total 350 1040 Output Total 1700 1100 Balance -1350 -60 - Medications Medications: Current Medications Carbidopa/Levodopa (Sinemet) 1 tab PO QID [facility] Last Admin: 12/20/16 13:41 Dose: Not Given Docusate Sodium (Colace) 100 mg PO TID [facility] Last Admin: 12/20/16 13:41 Dose: Not Given Entacapone (Comtan) 200 mg PO ACBD [facility] Last Admin: 12/20/16 16:30 Dose: Not Given Furosemide (Lasix) 20 mg IVP DAILY [facility] Last Admin: 12/20/16 09:44 Dose: Not Given Heparin Sodium (Porcine) (Heparin) 5,000 units SC Q12H [facility] Last Admin: 12/20/16 16:30 Dose: Not Given Fluconazole (Diflucan Iv 100 Mg/50 Ml Ns) 50 mls @ 100 mls/hr IVPB DAILY [facility] Last Admin: 12/20/16 10:50 Dose: 100 mls/hr Imipenem/Cilastatin Sodium 500 (mg/ Dextrose) 100 mls @ 100 mls/hr IVPB Q6H [facility] Metoprolol Tartrate (Lopressor) 12.5 mg PO BID [facility] Last Admin: 12/20/16 09:44 Dose: Not Given Pantoprazole Sodium (Protonix Inj) 40 mg IVP DAILY [facility] Last Admin: 12/20/16 10:50 Dose: 40 mg Polyethylene Glycol (Miralax) 17 gm PO Q8H PRN PRN Reason: Constipation Spironolactone (Aldactone) 25 mg PO DAILY [facility] Last Admin: 12/20/16 09:44 Dose: Not Given - Labs Labs: 12/20/16 06:25 12/20/16 06:25 PT 16.7 SECONDS (9.7-12.2) H 12/11/16 13:34 INR 1.5 12/11/16 13:34 APTT 30 SECONDS (21-34) 12/11/16 13:34 Assessment and Plan (1) Sepsis Status: Acute (2) Parkinson disease Status: Chronic (3) Congestive cardiomyopathy Status: Chronic (4) History of B-cell lymphoma Status: Chronic Attending/Attestation - Attestation I have personally seen and examined this patient.: Yes I have fully participated in the care of the patient.: Yes I have reviewed all pertinent clinical information, including history, physical exam and plan: Yes Notes (Text): 12/20/16 17:38 patient seen and examined. Status post thoracentesis Remains tachycardic No pulmonary embolism Continue antibiotics Nutritional support
[2016-12-20] MEDS: Imipenem/Cilastatin 500 MG in Dextrose 5% In Water 100 ML IVPB SCH (19:28)
--- NOTE | 2016-12-20 21:51 | CP.PCM.PN ---
Subjective - Date & Time of Evaluation Date of Evaluation: 12/20/16 Time of Evaluation: 16:30 - Subjective Subjective: Patient still in CCU. She had a right thoracentesis this AM, removing 500 ml of debbie fluid. The patient is alert, talking, in no respiratory difficulty, but still with poor appetite. Repeated CXR today: No more pleural effusion. To resume Lasix and spironolactone. Objective - Vital Signs/Intake and Output Vital Signs (last 24 hours): Temp Pulse Resp BP Pulse Ox 98.5 F 115 H 18 103/65 100 12/20/16 20:00 12/20/16 21:12 12/20/16 21:12 12/20/16 21:12 12/20/16 11:42 Intake and Output: 12/20/16 12/21/16 18:59 06:59 Intake Total 1190 350 Output Total 1300 200 Balance -110 150 - Medications Medications: Current Medications Carbidopa/Levodopa (Sinemet) 1 tab PO QID [facility] Last Admin: 12/20/16 17:45 Dose: Not Given Docusate Sodium (Colace) 100 mg PO TID [facility] Last Admin: 12/20/16 17:45 Dose: Not Given Entacapone (Comtan) 200 mg PO ACBD [facility] Last Admin: 12/20/16 16:30 Dose: Not Given Furosemide (Lasix) 20 mg IVP DAILY [facility] Last Admin: 12/20/16 09:44 Dose: Not Given Heparin Sodium (Porcine) (Heparin) 5,000 units SC Q12H [facility] Last Admin: 12/20/16 16:30 Dose: Not Given Fluconazole (Diflucan Iv 100 Mg/50 Ml Ns) 50 mls @ 100 mls/hr IVPB DAILY [facility] Last Admin: 12/20/16 10:50 Dose: 100 mls/hr Imipenem/Cilastatin Sodium 500 (mg/ Dextrose) 100 mls @ 100 mls/hr IVPB Q6H [facility] Last Admin: 12/20/16 19:28 Dose: 100 mls/hr Metoprolol Tartrate (Lopressor) 12.5 mg PO BID [facility] Last Admin: 12/20/16 17:45 Dose: Not Given Pantoprazole Sodium (Protonix Inj) 40 mg IVP DAILY [facility] Last Admin: 12/20/16 10:50 Dose: 40 mg Polyethylene Glycol (Miralax) 17 gm PO Q8H PRN PRN Reason: Constipation Spironolactone (Aldactone) 25 mg PO DAILY [facility] Last Admin: 12/20/16 09:44 Dose: Not Given - Labs Labs: 12/20/16 06:25 12/20/16 06:25 PT 16.7 SECONDS (9.7-12.2) H 12/11/16 13:34 INR 1.5 12/11/16 13:34 APTT 30 SECONDS (21-34) 12/11/16 13:34 - Constitutional Appears: No Acute Distress, Chronically Ill - Head Exam Head Exam: NORMOCEPHALIC - Eye Exam Eye Exam: Normal appearance - ENT Exam ENT Exam: Normal Exam - Neck Exam Neck Exam: Normal Inspection - Respiratory Exam Respiratory Exam: Rhonchi Additional comments: Rhonchi heard at both bases. - Cardiovascular Exam Cardiovascular Exam: REGULAR RHYTHM, Murmur - GI/Abdominal Exam GI & Abdominal Exam: Soft, Normal Bowel Sounds - Rectal Exam Rectal Exam: Deferred - Extremities Exam Extremities Exam: Normal Inspection - Neurological Exam Neurological Exam: Alert, Awake - Psychiatric Exam Psychiatric exam: Flat Affect - Skin Skin Exam: Dry, Intact, Normal Color, Warm Assessment and Plan (1) Altered mental status Assessment & Plan: Mental status better now. But still slightly confused, with poor appetite. Status: Acute (2) Parkinson disease Status: Chronic (3) UTI (urinary tract infection) Assessment & Plan: To continue IV antibiotics as per Dr Prudence Lynn. Status: Acute (4) Non-ischemic cardiomyopathy Assessment & Plan: Had right thoracentesis this AM. No more SOB. To resume diuretics and beta- rober. Status: Chronic
--- NOTE | 2016-12-20 23:32 | CP.PCM.PN ---
Subjective - Date & Time of Evaluation Date of Evaluation: 12/20/16 Time of Evaluation: 23:32 - Subjective Subjective: CHIEF COMPLAINTS TODAY : PATIENT SEEN, CHART REVIEWED .Patient in ICU bed 6 because of respiratory distress s/p thoracentesism 500 mL /debbie colored fluid obtained breathing better. ROS.on observation. HEENT : N.PT. ON BIPAP Resp : No SOB wheezing, cough Cardio : No CP, PND orthopnea GI : No abd. 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 Musculoskel : N Ext. : Pedal pulses intact, no edema or calf pain Derm : N Psych : N. PE. Pt. AWAKE ON BIPAP V.S As noted in the chart Head ,ear nose,throat and eyes : Normal. Neck : Supple with normal carotids. Lungs: BILATERAL RALES RT>LT Heart : S1 & S2 normal .TACHYCARDIC . No murmur. Abd : Soft non tender with normal bowel sounds. Neuro : Moves all ext. with no localized deficit. Ext : No edema with intact pulses. Neg. calf tenderness Derm : No rashes or decubitus ulcer. Radiology/Labs . ANGIO - CHEST 12/19/16 -VE PULMONARY EMBOLISM. lARGE RIGHT PLEURAL EFFUSION WITH COMPRESSIVE ATELECTASIS RIGHT LOWER LOBE ( see full report ) urine culture +ve yeast. Creatinine 0.7/BUN 26. REPEAT BLOOD CULTURES -VE GROWTH FOR 24 HOURS. Asssessment : RESPIRATORY FAILURE /CHF WITH LARGE RIGHT EFFUSION. s/p right thoracentesis. GRAM-NEGATIVE SEPSIS +VE ESBL +VE E. COLI 2:2 SETS source of sepsis most likely vs GI CANDIDURIA CHF HISTORY OF B CELL- LYMPHOMA ( IN REMISSION ) PARKINSONISM. Plan : CONTINUE IV PRIMAXIN 500 MG EVERY 6 HOURLY .12/13/16. on iv DIFLUCAN 100 MG iv PIGGYBACK ONCE A DAY DAILY.12/19/16. FOLLOW-UP thoracentesis fluid. fOLLOW-UP RENAL FUNCTIONS. Objective - Vital Signs/Intake and Output Vital Signs (last 24 hours): Temp Pulse Resp BP Pulse Ox 98.5 F 115 H 18 99/68 L 100 12/20/16 20:00 12/20/16 22:12 12/20/16 22:12 12/20/16 22:12 12/20/16 11:42 Intake and Output: 12/20/16 12/21/16 18:59 06:59 Intake Total 1190 350 Output Total 1300 250 Balance -110 100 - Medications Medications: Current Medications Carbidopa/Levodopa (Sinemet) 1 tab PO QID [facility] Last Admin: 12/20/16 17:45 Dose: Not Given Docusate Sodium (Colace) 100 mg PO TID [facility] Last Admin: 12/20/16 17:45 Dose: Not Given Entacapone (Comtan) 200 mg PO ACBD [facility] Last Admin: 12/20/16 16:30 Dose: Not Given Furosemide (Lasix) 20 mg IVP DAILY [facility] Last Admin: 12/20/16 09:44 Dose: Not Given Heparin Sodium (Porcine) (Heparin) 5,000 units SC Q12H [facility] Last Admin: 12/20/16 16:30 Dose: Not Given Fluconazole (Diflucan Iv 100 Mg/50 Ml Ns) 50 mls @ 100 mls/hr IVPB DAILY [facility] Last Admin: 12/20/16 10:50 Dose: 100 mls/hr Imipenem/Cilastatin Sodium 500 (mg/ Dextrose) 100 mls @ 100 mls/hr IVPB Q6H [facility] Last Admin: 12/20/16 19:28 Dose: 100 mls/hr Metoprolol Tartrate (Lopressor) 12.5 mg PO BID [facility] Last Admin: 12/20/16 17:45 Dose: Not Given Pantoprazole Sodium (Protonix Inj) 40 mg IVP DAILY [facility] Last Admin: 12/20/16 10:50 Dose: 40 mg Polyethylene Glycol (Miralax) 17 gm PO Q8H PRN PRN Reason: Constipation Spironolactone (Aldactone) 25 mg PO DAILY [facility] Last Admin: 12/20/16 09:44 Dose: Not Given - Labs Labs: 12/20/16 06:25 12/20/16 06:25 PT 16.7 SECONDS (9.7-12.2) H 12/11/16 13:34 INR 1.5 12/11/16 13:34 APTT 30 SECONDS (21-34) 12/11/16 13:34 Assessment and Plan (1) Altered mental status Status: Acute (2) Sepsis Status: Acute (3) UTI (urinary tract infection) Status: Acute (4) CHF (congestive heart failure) Status: Chronic (5) History of B-cell lymphoma Status: Chronic (6) Parkinson disease Status: Chronic
[2016-12-21] MEDS: Imipenem/Cilastatin 500 MG in Dextrose 5% In Water 100 ML IVPB SCH ×2 (00:30→06:30)
--- NOTE | 2016-12-21 01:27 | PN ---
DATE: 12/20/2016 SUBJECTIVE: The patient is seen. The patient states feeling weak, still with periods of confusion. The patient had earlier thoracentesis. The patient still not eating well and still with periods of confusion. PHYSICAL EXAMINATION: VITAL SIGNS: Temperature is 98.7, pulse rate is 102, blood pressure 107/61, respirations 26, oxygen saturation is now 100%. REVIEW OF SYSTEMS: GENERAL: The patient is still feeling weak, but more verbal and seem today still with confusion. Was moving extremities when seen. Still has poor appetite and at times reluctant to take her meds. SKIN: No diaphoresis. HEENT: No headache or dizziness. NECK: Supple. RESPIRATORY: Not in acute respiratory distress. CARDIOVASCULAR: No chest pain. GASTROINTESTINAL: Appetite is still poor. EXTREMITIES: The patient is moving extremities. MUSCULOSKELETAL: Feels weak. NEUROLOGIC: Alert with periods of confusion. GENITOURINARY: No dysuria. MENTAL STATUS EXAMINATION: An elderly female who looks stated age, still with periods of confusion. The patient thought that she is in the medical center. The patient reoriented to [facility]. The patient oriented to person, not to place and time. Mood is dysphoric. Affect constricted. Speech is slow. Thought process confused off and on. Thought content, no overt psychosis. No suicidal or homicidal ideation. Attention and memory seems to be limited. Insight and judgment limited. Impulse control is fair at this time. IMPRESSION: Delirium and metabolic encephalopathy, multifactorial, secondary to urinary tract infection. PLAN AND RECOMMENDATIONS: The patient is seen. Meds reviewed. Continue present management. We will hold off his psych meds for now. Continue treatment plan as outlined. Patricio Maciel MD
[2016-12-21 07:08] LABS: BASO % 0.4 % (0.0-2.0); EOS % 0.2 % (0.0-4.0); HEMATOCRIT 39.6 % (34.0-47.0); LYMPH # 0.7 K/uL (1.0-4.3); MEAN CELL VOLUME 97.7 fL (81.0-99.0); MEAN CORPUSCULAR HEMOGLOBIN 31.4 pg (27.0-31.0); MEAN CORPUSCULAR HGB CONC 32.1 g/dL (33.0-37.0); MONO # 0.4 K/uL (0.0-0.8); MONO % 7.9 % (0.0-10.0); NRBC % 0.8 % (0.0-2.0); RED CELL DISTRIBUTION WIDTH 22.1 % (11.5-14.5); WHITE BLOOD COUNT 4.9 K/uL (4.8-10.8)
[2016-12-21 07:11] LABS: CHLORIDE 111 mmol/L (98-107); SODIUM 141 mmol/L (132-148)
[2016-12-21 07:12] LABS: POTASSIUM 3.3 mmol/L (3.6-5.2)
[2016-12-21 07:14] LABS: ALB/GLOB RATIO 1.4 (1.0-2.1); ALKALINE PHOSPHATASE 93 U/L (38-126); ALT/SGPT 36 U/L (9-52); AST/SGOT 28 U/L (14-36); BILIRUBIN,TOTAL 2.4 mg/dL (0.2-1.3); BLOOD UREA NITROGEN 23 mg/dL (7-17); CARBON DIOXIDE 22 mmol/L (22-30); GFR AFRICAN-AMERICAN > 60; GLUCOSE,RANDOM 86 mg/dL (65-105); TOTAL PROTEIN 4.6 g/dL (6.3-8.3)
[2016-12-21 07:15] LABS: CALCIUM 8.7 mg/dl (8.6-10.4); MAGNESIUM 1.8 mg/dL (1.6-2.3)
[2016-12-21] MEDS: Fluconazole IV 100mg/50 ml NS 50 ML IVPB SCH (10:38)
--- NOTE | 2016-12-21 12:11 | CP.CCUPN ---
<StormdiogoDaja Clyde - Last Filed: 12/21/16 12:07> CCU Subjective - Physician Review Subjective (Free Text): Patient seen and examined at bedside and in no acute distress. Patient says she feels okay and her breathing is better. Patient has little appetite. Patient denies shortness of breath, chest pain, abdominal pain, nausea, vomiting, constipation or diarrhea. CCU Objective - Vital Signs / Intake & Output Vital Signs (Last 4 hours): Vital Signs BP 12/21/16 10:36 119/62 Intake and Output (Last 8hrs): Intake & Output 12/20/16 12/21/16 12/21/16 22:59 06:59 14:59 Intake Total 800 100 Output Total 650 400 Balance 150 -300 Weight 137 lb Intake: Intake, IV Amount 100 100 Right Wrist 100 100 Oral 700 Output: Urine 650 400 Urethral (Rodriguez) 650 400 Stool 0 Emesis 0 - Physical Exam Head: Positive for: Atraumatic, Normocephalic Extroacular Muscles: Positive for: EOMI Mouth: Positive for: Moist Mucous Membranes Respiratory/Chest: Positive for: Good Air Exchange. Negative for: Accessory Muscle Use Cardiovascular: Positive for: Normal S1, S2, Tachycardic Abdomen: Negative for: Tenderness, Distention Neurological: Positive for: GCS=15 Skin: Positive for: Warm Psychiatric: Positive for: Alert. Negative for: Oriented x 3 - Medications Active Medications: Active Medications Generic Name Dose Route Start Last Admin Trade Name Freq PRN Reason Stop Dose Admin Carbidopa/Levodopa 1 tab 12/15/16 14:00 12/21/16 10:38 Sinemet PO 1 tab QID ANALISA Administration Docusate Sodium 100 mg 12/14/16 14:00 12/21/16 10:37 Colace PO 100 mg TID ANALISA Administration Entacapone 200 mg 12/11/16 19:30 12/21/16 06:51 Comtan PO 200 mg ACBD ANALISA Administration Furosemide 20 mg 12/20/16 10:00 12/21/16 10:36 Lasix IVP 20 mg DAILY ANALISA Administration Heparin Sodium (Porcine) 5,000 units 12/19/16 17:00 12/21/16 06:49 Heparin SC 5,000 units Q12H ANALISA Administration Fluconazole 50 mls @ 100 mls/hr 12/19/16 16:00 12/21/16 10:38 Diflucan Iv 100 Mg/50 Ml Ns IVPB 100 mls/hr DAILY ANALISA Administration Imipenem/Cilastatin Sodium 500 100 mls @ 100 mls/hr 12/21/16 18:30 mg/ Sodium Chloride IVPB Q6H ANALISA Metoprolol Tartrate 12.5 mg 12/12/16 22:30 12/21/16 10:37 Lopressor PO 12.5 mg BID ANALISA Administration Pantoprazole Sodium 40 mg 12/19/16 17:00 12/21/16 10:36 Protonix Inj IVP 40 mg DAILY ANALISA Administration Polyethylene Glycol 17 gm 12/14/16 11:09 Miralax PO Q8H PRN Constipation Spironolactone 25 mg 12/15/16 10:00 12/21/16 10:37 Aldactone PO 25 mg DAILY ANALISA Administration - Patient Studies Lab Studies: Microbiology Studies 12/18/16 05:40 Blood Culture - Preliminary Blood-Thru Central Line NO GROWTH AFTER 3 DAYS 12/20/16 09:51 Gram Stain - Preliminary Pleural Fluid Body Fluid Culture - Preliminary NO GROWTH AFTER 24 HOURS 12/20/16 09:51 Fungal Culture - Preliminary Pleural Cavity 12/18/16 07:05 Blood Culture - Preliminary Blood-Thru Central Line NO GROWTH AFTER 3 DAYS 12/19/16 16:40 MRSA Culture (Admit) - Final Naris MRSA NOT DETECTED Lab Studies 12/21/16 12/21/16 12/20/16 Range/Units 06:53 06:53 16:28 WBC 4.9 (4.8-10.8) K/uL RBC 4.05 (3.80-5.20) Mil/uL Hgb 12.7 (11.0-16.0) g/dL Hct 39.6 (34.0-47.0) % MCV 97.7 (81.0-99.0) fL MCH 31.4 H (27.0-31.0) pg MCHC 32.1 L (33.0-37.0) g/dL RDW 22.1 H (11.5-14.5) % Plt Count 174 (130-400) K/uL MPV 11.0 (7.2-11.7) fL Neut % (Auto) 77.5 H (50.0-75.0) % Lymph % (Auto) 14.0 L (20.0-40.0) % Meade % (Auto) 7.9 (0.0-10.0) % Eos % (Auto) 0.2 (0.0-4.0) % Baso % (Auto) 0.4 (0.0-2.0) % Neut # 3.8 (1.8-7.0) K/uL Lymph # 0.7 L (1.0-4.3) K/uL Meade # 0.4 (0.0-0.8) K/uL Eos # 0.0 (0.0-0.7) K/uL Baso # 0.0 (0.0-0.2) K/uL Puncture Site pCO2 (35-45) mm/Hg pO2 (80-100) mm/Hg HCO3 (21-28) mmol/L ABG pH (7.35-7.45) ABG Total CO2 (22-28) mmol/L ABG O2 Saturation (95-98) % ABG Base Excess (-2.0-3.0) mmol/L ABG Hemoglobin (11.7-17.4) g/dL ABG Carboxyhemoglobin (0.5-1.5) % POC ABG HHb (Measured) (0.0-5.0) % ABG Methemoglobin (0.0-3.0) % Elton Test A-a O2 Difference mm/Hg Respiratory Index Hgb O2 Saturation (95.0-98.0) % Liter Flow FiO2 % Sodium 141 (132-148) mmol/L Potassium 3.3 L (3.6-5.2) mmol/L Chloride 111 H (98-107) mmol/L Carbon Dioxide 22 (22-30) mmol/L Anion Gap 12 (10-20) BUN 23 H (7-17) mg/dL Creatinine 0.6 L (0.7-1.2) mg/dL Est GFR ( Amer) > 60 Est GFR (Non-Af Amer) > 60 POC Glucose (mg/dL) 95 (65-110) mg/dL Random Glucose 86 (65-105) mg/dL Calcium 8.7 (8.6-10.4) mg/dl Phosphorus 3.0 (2.5-4.5) mg/dL Magnesium 1.8 (1.6-2.3) mg/dL Total Bilirubin 2.4 H (0.2-1.3) mg/dL AST 28 (14-36) U/L ALT 36 (9-52) U/L Alkaline Phosphatase 93 (38-126) U/L Total Protein 4.6 L (6.3-8.3) g/dL Albumin 2.7 L (3.5-5.0) g/dL Globulin 1.9 L (2.2-3.9) gm/dL Albumin/Globulin Ratio 1.4 (1.0-2.1) 12/20/16 Range/Units 12:51 WBC (4.8-10.8) K/uL RBC (3.80-5.20) Mil/uL Hgb (11.0-16.0) g/dL Hct (34.0-47.0) % MCV (81.0-99.0) fL MCH (27.0-31.0) pg MCHC (33.0-37.0) g/dL RDW (11.5-14.5) % Plt Count (130-400) K/uL MPV (7.2-11.7) fL Neut % (Auto) (50.0-75.0) % Lymph % (Auto) (20.0-40.0) % Meade % (Auto) (0.0-10.0) % Eos % (Auto) (0.0-4.0) % Baso % (Auto) (0.0-2.0) % Neut # (1.8-7.0) K/uL Lymph # (1.0-4.3) K/uL Meade # (0.0-0.8) K/uL Eos # (0.0-0.7) K/uL Baso # (0.0-0.2) K/uL Puncture Site Rr pCO2 36 (35-45) mm/Hg pO2 123 H (80-100) mm/Hg HCO3 22.3 (21-28) mmol/L ABG pH 7.38 (7.35-7.45) ABG Total CO2 22.4 (22-28) mmol/L ABG O2 Saturation 99.2 H (95-98) % ABG Base Excess -3.3 L (-2.0-3.0) mmol/L ABG Hemoglobin 12.4 (11.7-17.4) g/dL ABG Carboxyhemoglobin 2.0 H (0.5-1.5) % POC ABG HHb (Measured) 0.8 (0.0-5.0) % ABG Methemoglobin 0.7 (0.0-3.0) % Elton Test Pos A-a O2 Difference 46.0 mm/Hg Respiratory Index 0.4 Hgb O2 Saturation 96.5 (95.0-98.0) % Liter Flow 3.0 FiO2 30.0 % Sodium (132-148) mmol/L Potassium (3.6-5.2) mmol/L Chloride (98-107) mmol/L Carbon Dioxide (22-30) mmol/L Anion Gap (10-20) BUN (7-17) mg/dL Creatinine (0.7-1.2) mg/dL Est GFR ( Amer) Est GFR (Non-Af Amer) POC Glucose (mg/dL) (65-110) mg/dL Random Glucose (65-105) mg/dL Calcium (8.6-10.4) mg/dl Phosphorus (2.5-4.5) mg/dL Magnesium (1.6-2.3) mg/dL Total Bilirubin (0.2-1.3) mg/dL AST (14-36) U/L ALT (9-52) U/L Alkaline Phosphatase (38-126) U/L Total Protein (6.3-8.3) g/dL Albumin (3.5-5.0) g/dL Globulin (2.2-3.9) gm/dL Albumin/Globulin Ratio (1.0-2.1) Laboratory Results - last 24 hr 12/20/16 12/20/16 12/21/16 12:51 16:28 06:53 WBC 4.9 RBC 4.05 Hgb 12.7 Hct 39.6 MCV 97.7 MCH 31.4 H MCHC 32.1 L RDW 22.1 H Plt Count 174 MPV 11.0 Neut % (Auto) 77.5 H Lymph % (Auto) 14.0 L Meade % (Auto) 7.9 Eos % (Auto) 0.2 Baso % (Auto) 0.4 Neut # 3.8 Lymph # 0.7 L Meade # 0.4 Eos # 0.0 Baso # 0.0 Puncture Site Rr pCO2 36 pO2 123 H HCO3 22.3 ABG pH 7.38 ABG Total CO2 22.4 ABG O2 Saturation 99.2 H ABG Base Excess -3.3 L ABG Hemoglobin 12.4 ABG Carboxyhemoglobin 2.0 H POC ABG HHb (Measured) 0.8 ABG Methemoglobin 0.7 Elton Test Pos A-a O2 Difference 46.0 Respiratory Index 0.4 Hgb O2 Saturation 96.5 Liter Flow 3.0 FiO2 30.0 Sodium Potassium Chloride Carbon Dioxide Anion Gap BUN Creatinine Est GFR ( Amer) Est GFR (Non-Af Amer) POC Glucose (mg/dL) 95 Random Glucose Calcium Phosphorus Magnesium Total Bilirubin AST ALT Alkaline Phosphatase Total Protein Albumin Globulin Albumin/Globulin Ratio 12/21/16 06:53 WBC RBC Hgb Hct MCV MCH MCHC RDW Plt Count MPV Neut % (Auto) Lymph % (Auto) Meade % (Auto) Eos % (Auto) Baso % (Auto) Neut # Lymph # Meade # Eos # Baso # Puncture Site pCO2 pO2 HCO3 ABG pH ABG Total CO2 ABG O2 Saturation ABG Base Excess ABG Hemoglobin ABG Carboxyhemoglobin POC ABG HHb (Measured) ABG Methemoglobin Elton Test A-a O2 Difference Respiratory Index Hgb O2 Saturation Liter Flow FiO2 Sodium 141 Potassium 3.3 L Chloride 111 H Carbon Dioxide 22 Anion Gap 12 BUN 23 H Creatinine 0.6 L Est GFR ( Amer) > 60 Est GFR (Non-Af Amer) > 60 POC Glucose (mg/dL) Random Glucose 86 Calcium 8.7 Phosphorus 3.0 Magnesium 1.8 Total Bilirubin 2.4 H AST 28 ALT 36 Alkaline Phosphatase 93 Total Protein 4.6 L Albumin 2.7 L Globulin 1.9 L Albumin/Globulin Ratio 1.4 Fingerstick Blood Sugar Results: 124 Review of Systems - Constitutional Constitutional: absent: Chills, Sweats, Weakness - Cardiovascular Cardiovascular: absent: Chest Pain, Chest Pain at Rest, Diaphoresis, Dyspnea, Leg Edema - Respiratory Respiratory: absent: Cough, Dyspnea - Gastrointestinal Gastrointestinal: absent: Constipation, Diarrhea, Nausea, Vomiting - Genitourinary Genitourinary: absent: Difficulty Urinating - Integumentary Integumentary: absent: Rash - Psychiatric Psychiatric: Confusion - Hematologic/Lymphatic Hematologic: absent: Easy Bleeding, Easy Bruising Critical Care Progress Note - Nutrition Nutrition: Nutrition Category Date Time Status Heart Healthy Diet [DIET] Diets 12/11/16 Dinner Active Assessment/Plan - Assessment and Plan (Free Text) Assessment: Patient is 65 y/o F with Pmhx of non-ischemic cardiomyopathy, Parkinson's disease, CHF, hypotension, and diffuse large cell lymphoma admitted for urosepsis on 12/11 transferred to ICU on 12/19 for worsening respiratory distress. Today's Plan: Patient stable for transfer to med/surg. Neuro: AMS, hx Parkinson disease * Carbidopa/Levodopa * Comtan 200mg po ACBD * Head CT (12/11): stable limited age related neuro degeneraative changes appear reiterated without definite acute interval findings as discussed in full report * Brain MRI (12/13): no evidence of acute pathology in the brain. No evidence of enhancing mass lesion, mess effect, or midline shift. Cardio: hx CHF with dilated cardiomyopathy * Echo 10/04/16 showed LVEF 27%, pulmonary HTN and evidence of dilated cardiomyopathy. ICD implantation was recommended for when patient was more stable * patient having persistent tachycardia, but refusing oral medications * Lopressor 12.5 mg po BID * Aldactone 25mg po daily * Dr. Da Silva consulted, help appreciated Pulm: respiratory distress 2/2 CHF * placed on BiPAP, ABG: pCO2: 25, pO2: 182, HCO3: 22.2, pH:7.48 * 12/20 off BiPAP, on NC @ 3L * f/u sputum culture * Lasix 20 mg daily * Cxray (12/19): increased right sided opacity may reflect infiltrate or pleural effusion. Trace left pleural effusion not excluded with atelectasis or infilitrate posterior to the left heart appearing increased. Stable cardiomegaly. * CTA (12/19): No pulmonary embolism, large right pleural effusion with compression atelectasis in the dependent portion of the right lung, mild cardiomegaly with moderate to large intra-abdominal ascites and anascara. * thoracentesis performed by Dr. Tang - 500cc clear yellow fluid removed * f/u pleural fluid studies Heme: hx of large cell lymphoma * in remission * heme/onc doctors: Dr. Moody, Dr. Nichole in [place] * needs port flushed (due, last done 6 weeks ago) GI: No acute symptoms at this time * Miralax as needed : Urosepsis 2/2 e. coli (12/11), yeast(12/18) in urine * Imipenem/cilastin * started Fluconazole (12/19/16) ID: * Blood and urine culture 12/11/16: E. Coli * Blood culture 12/18/16: negative * Urine culture 12/18/16: yeast * Imipenem/cilastin * started Fluconazole (12/19/16) * Dr. Lynn consulted, help appreciated Psych: delirium vs. anti-parkinson medication induced * Per Dr. Mishra, psych meds being held at this time Prophylaxis: * GI: Protonix 40mg daily * DVT: Heparin 5000 u q12h <Carlos Lo - Last Filed: 12/21/16 13:48> CCU Objective - Vital Signs / Intake & Output Vital Signs (Last 4 hours): Vital Signs Temp Pulse Resp BP Pulse Ox 12/21/16 12:12 127 H 25 H 107/61 100 12/21/16 12:00 97.6 F 126 H 17 100 12/21/16 11:42 86 18 109/69 100 12/21/16 11:30 121 H 28 H 98 12/21/16 11:18 127 H 27 H 112/74 98 12/21/16 11:00 127 H 24 12/21/16 10:42 100 H 30 H 113/65 12/21/16 10:36 119/62 12/21/16 10:30 123 H 27 H 12/21/16 10:12 129 H 24 119/62 12/21/16 10:00 102 H 17 Intake and Output (Last 8hrs): Intake & Output 12/20/16 12/21/16 12/21/16 22:59 06:59 14:59 Intake Total 800 100 510 Output Total 650 400 Balance 150 -300 510 Weight 137 lb Intake: Intake, IV Amount 100 100 150 Right Wrist 100 100 150 Oral 700 360 Output: Urine 650 400 Urethral (Rodriguez) 650 400 Stool 0 Emesis 0 Other: # Voids Urine, Voided 1 - Medications Active Medications: Active Medications Generic Name Dose Route Start Last Admin Trade Name Freq PRN Reason Stop Dose Admin Carbidopa/Levodopa 1 tab 12/15/16 14:00 12/21/16 13:08 Sinemet PO 1 tab QID ANALISA Administration Docusate Sodium 100 mg 12/14/16 14:00 12/21/16 13:08 Colace PO 100 mg TID ANALISA Administration Entacapone 200 mg 12/11/16 19:30 12/21/16 06:51 Comtan PO 200 mg ACBD ANALISA Administration Furosemide 20 mg 12/20/16 10:00 12/21/16 10:36 Lasix IVP 20 mg DAILY ANALISA Administration Heparin Sodium (Porcine) 5,000 units 12/19/16 17:00 12/21/16 06:49 Heparin SC 5,000 units Q12H ANALISA Administration Fluconazole 50 mls @ 100 mls/hr 12/19/16 16:00 12/21/16 10:38 Diflucan Iv 100 Mg/50 Ml Ns IVPB 100 mls/hr DAILY ANALISA Administration Imipenem/Cilastatin Sodium 500 100 mls @ 100 mls/hr 12/21/16 18:30 mg/ Sodium Chloride IVPB Q6H ANALISA Metoprolol Tartrate 12.5 mg 12/12/16 22:30 12/21/16 10:37 Lopressor PO 12.5 mg BID ANALISA Administration Pantoprazole Sodium 40 mg 12/19/16 17:00 12/21/16 10:36 Protonix Inj IVP 40 mg DAILY ANALISA Administration Polyethylene Glycol 17 gm 12/14/16 11:09 Miralax PO Q8H PRN Constipation Spironolactone 25 mg 12/15/16 10:00 12/21/16 10:37 Aldactone PO 25 mg DAILY ANALISA Administration - Patient Studies Lab Studies: Microbiology Studies 12/18/16 05:40 Blood Culture - Preliminary Blood-Thru Central Line NO GROWTH AFTER 3 DAYS 12/20/16 09:51 Gram Stain - Preliminary Pleural Fluid Body Fluid Culture - Preliminary NO GROWTH AFTER 24 HOURS 12/20/16 09:51 Fungal Culture - Preliminary Pleural Cavity 12/18/16 07:05 Blood Culture - Preliminary Blood-Thru Central Line NO GROWTH AFTER 3 DAYS 12/19/16 16:40 MRSA Culture (Admit) - Final Naris MRSA NOT DETECTED Lab Studies 12/21/16 12/21/16 12/20/16 Range/Units 06:53 06:53 16:28 WBC 4.9 (4.8-10.8) K/uL RBC 4.05 (3.80-5.20) Mil/uL Hgb 12.7 (11.0-16.0) g/dL Hct 39.6 (34.0-47.0) % MCV 97.7 (81.0-99.0) fL MCH 31.4 H (27.0-31.0) pg MCHC 32.1 L (33.0-37.0) g/dL RDW 22.1 H (11.5-14.5) % Plt Count 174 (130-400) K/uL MPV 11.0 (7.2-11.7) fL Neut % (Auto) 77.5 H (50.0-75.0) % Lymph % (Auto) 14.0 L (20.0-40.0) % Meade % (Auto) 7.9 (0.0-10.0) % Eos % (Auto) 0.2 (0.0-4.0) % Baso % (Auto) 0.4 (0.0-2.0) % Neut # 3.8 (1.8-7.0) K/uL Lymph # 0.7 L (1.0-4.3) K/uL Meade # 0.4 (0.0-0.8) K/uL Eos # 0.0 (0.0-0.7) K/uL Baso # 0.0 (0.0-0.2) K/uL Sodium 141 (132-148) mmol/L Potassium 3.3 L (3.6-5.2) mmol/L Chloride 111 H (98-107) mmol/L Carbon Dioxide 22 (22-30) mmol/L Anion Gap 12 (10-20) BUN 23 H (7-17) mg/dL Creatinine 0.6 L (0.7-1.2) mg/dL Est GFR ( Amer) > 60 Est GFR (Non-Af Amer) > 60 POC Glucose (mg/dL) 95 (65-110) mg/dL Random Glucose 86 (65-105) mg/dL Calcium 8.7 (8.6-10.4) mg/dl Phosphorus 3.0 (2.5-4.5) mg/dL Magnesium 1.8 (1.6-2.3) mg/dL Total Bilirubin 2.4 H (0.2-1.3) mg/dL AST 28 (14-36) U/L ALT 36 (9-52) U/L Alkaline Phosphatase 93 (38-126) U/L Total Protein 4.6 L (6.3-8.3) g/dL Albumin 2.7 L (3.5-5.0) g/dL Globulin 1.9 L (2.2-3.9) gm/dL Albumin/Globulin Ratio 1.4 (1.0-2.1) Laboratory Results - last 24 hr 12/20/16 12/21/16 12/21/16 16:28 06:53 06:53 WBC 4.9 RBC 4.05 Hgb 12.7 Hct 39.6 MCV 97.7 MCH 31.4 H MCHC 32.1 L RDW 22.1 H Plt Count 174 MPV 11.0 Neut % (Auto) 77.5 H Lymph % (Auto) 14.0 L Meade % (Auto) 7.9 Eos % (Auto) 0.2 Baso % (Auto) 0.4 Neut # 3.8 Lymph # 0.7 L Meade # 0.4 Eos # 0.0 Baso # 0.0 Sodium 141 Potassium 3.3 L Chloride 111 H Carbon Dioxide 22 Anion Gap 12 BUN 23 H Creatinine 0.6 L Est GFR ( Amer) > 60 Est GFR (Non-Af Amer) > 60 POC Glucose (mg/dL) 95 Random Glucose 86 Calcium 8.7 Phosphorus 3.0 Magnesium 1.8 Total Bilirubin 2.4 H AST 28 ALT 36 Alkaline Phosphatase 93 Total Protein 4.6 L Albumin 2.7 L Globulin 1.9 L Albumin/Globulin Ratio 1.4 Critical Care Progress Note - Nutrition Nutrition: Nutrition Category Date Time Status Heart Healthy Diet [DIET] Diets 12/11/16 Dinner Active Assessment/Plan - Assessment and Plan (Free Text) Plan: CCM Alert, responisve/ no new compliant Neck- no jvdlungs- bilat bs Heart-rr aBd- benign eXt- nontender Labs-reviewed A&P Sepsis UTI CHF CMP Pl. Eff/ s/p Thoracentesis Parkinsons Large Cell Lymphoma Hx Schizophrenia cont meds cont Ab PO as tolerated maintain optimal lytes DVT prophylaxis stable for medical floor d/w housesta
--- NOTE | 2016-12-21 15:10 | CP.PCM.PN ---
Subjective - Date & Time of Evaluation Date of Evaluation: 12/21/16 Time of Evaluation: 09:00 - Subjective Subjective: Pulmonology Consult Note for Dr. Lyles's Service Patient was seen and examined at bedside. s/p thoracentesis - 500cc removed. continues to be tachycardic and tachypneic Objective - Vital Signs/Intake and Output Vital Signs (last 24 hours): Temp Pulse Resp BP Pulse Ox 97.6 F 127 H 25 H 107/61 100 12/21/16 12:00 12/21/16 12:12 12/21/16 12:12 12/21/16 12:12 12/21/16 12:12 Intake and Output: 12/21/16 12/21/16 06:59 18:59 Intake Total 450 510 Output Total 650 Balance -200 510 - Medications Medications: Current Medications Carbidopa/Levodopa (Sinemet) 1 tab PO QID [facility] Last Admin: 12/21/16 13:08 Dose: 1 tab Docusate Sodium (Colace) 100 mg PO TID [facility] Last Admin: 12/21/16 13:08 Dose: 100 mg Entacapone (Comtan) 200 mg PO ACBD [facility] Last Admin: 12/21/16 06:51 Dose: 200 mg Furosemide (Lasix) 20 mg IVP DAILY [facility] Last Admin: 12/21/16 10:36 Dose: 20 mg Heparin Sodium (Porcine) (Heparin) 5,000 units SC Q12H [facility] Last Admin: 12/21/16 06:49 Dose: 5,000 units Fluconazole (Diflucan Iv 100 Mg/50 Ml Ns) 50 mls @ 100 mls/hr IVPB DAILY [facility] Last Admin: 12/21/16 10:38 Dose: 100 mls/hr Imipenem/Cilastatin Sodium 500 (mg/ Sodium Chloride) 100 mls @ 100 mls/hr IVPB Q6H [facility] Metoprolol Tartrate (Lopressor) 12.5 mg PO BID [facility] Last Admin: 12/21/16 10:37 Dose: 12.5 mg Pantoprazole Sodium (Protonix Inj) 40 mg IVP DAILY [facility] Last Admin: 12/21/16 10:36 Dose: 40 mg Polyethylene Glycol (Miralax) 17 gm PO Q8H PRN PRN Reason: Constipation Spironolactone (Aldactone) 25 mg PO DAILY [facility] Last Admin: 12/21/16 10:37 Dose: 25 mg - Labs Labs: 12/21/16 06:53 12/21/16 06:53 PT 16.7 SECONDS (9.7-12.2) H 12/11/16 13:34 INR 1.5 12/11/16 13:34 APTT 30 SECONDS (21-34) 12/11/16 13:34 - Additional Findings Additional findings: - Constitutional Appears: Non-toxic, No Acute Distress, Chronically Ill - Respiratory Exam Respiratory Exam: Accessory Muscle Use, Decreased Breath Sounds, Rales, NORMAL BREATHING PATTERN. absent: Respiratory Distress - Cardiovascular Exam Cardiovascular Exam: Tachycardia, REGULAR RHYTHM, +S1, +S2 - GI/Abdominal Exam GI & Abdominal Exam: Soft, Normal Bowel Sounds. absent: Distended, Firm, Guarding, Tenderness - Neurological Exam Neurological Exam: Alert, Awake - Psychiatric Exam Psychiatric exam: Normal Affect, Normal Mood Assessment and Plan - Assessment and Plan (Free Text) Plan: Fluid overload Assessment & Plan: Patient with worsening chest X ray and increased breathing effort. Placed on BiPAP, ABG: pCO2: 25, pO2: 182, HCO3: 22.2, pH:7.48 CT Chest 12/19: 1. No pulmonary embolism. 2. Large right pleural effusion with compression atelectasis in the dependent portion of the right lung. 3. Mild cardiomegaly with Moderate to large intra-abdominal ascites and anasarca Currently in ICU for closer monitoring and diuresis S/P thoracentesis - 500 cc removed Status: Acute Sepsis Assessment & Plan: Escherichia coli sepsis secondary to uterine tract infect Continue antibiotics - primaxin as per ID Continue IV fluids Monitor lactate level Consider NG tube feeding Chest Xray on 12/18 showed venous congestion and repeat today showed worsening of fluid in lungs Status: Acute Congestive cardiomyopathy Status: Chronic Parkinson disease Status: Chronic History of B-cell lymphoma Status: Chronic DW Ritchie Rosales DO, PGY-1
--- NOTE | 2016-12-21 20:41 | PN ---
DATE: 12/21/2016 SUBJECTIVE: The patient is seen with her family member. According to the nurse, patient is refusing to eat or take her medication. Patient has a history of Parkinson's disease and has been refusing to take her medications and eat. The patient also having respiratory problems. The patient, due to her poor p.o. intake, may benefit from having a GI consult to evaluate the patient if the patient is a candidate for PEG tube feeding. The patient has a history of Parkinson's for 2 to 3 years and has been having problems with swallowing. She remains confused, but the patient may eventually need a PEG tube, so patient will be able to take her medications as well as for nutritional support. REVIEW OF SYSTEMS: The patient was seen in her room. The patient has a history of recent thoracentesis. PHYSICAL EXAMINATION: VITAL SIGNS: Temperature is 97.6, pulse rate is 96, blood pressure is low 92/46, respiration is 17, oxygen saturation is 98%. GENERAL: She was seen with her sister. Patient is still confused. SKIN: No diaphoresis. HEENT: No headache or dizziness. NECK: Supple. RESPIRATORY: [id number] dyspnea. CARDIOVASCULAR: No chest pain. GASTROINTESTINAL: Patient's p.o. intake is very poor. She is refusing to eat or take one or two sips according to the sister and also not eating and reluctant to take her medications. EXTREMITIES: Patient moving extremities. MUSCULOSKELETAL: Feels weak. NEUROLOGIC: Alert with periods of confusion. MENTAL STATUS EXAMINATION: A frail-looking elderly female, who looks very frail and sick, oriented x1. Patient is oriented to place and time. Seen in her room with her sister. Mood is dysphoric to flat, depressed. Affect is restricted. Speech is slow. Thought process confused, off and on. Thought content, the patient refusing to eat. No overt psychosis. No suicidal or homicidal ideation. Attention and memory seem to be limited. Insight and judgment limited. Impulse control is fair at this time. IMPRESSION: Delirium and metabolic encephalopathy secondary to urinary tract infection. PLAN AND RECOMMENDATIONS: The patient is seen. Medications reviewed. Continue treatment plan. We will keep patient off psych medications for now as the patient's blood pressure is low. I do suggest the patient may benefit from GI consult and the patient may need PEG tube, so the patient may able to take her medications without any problems as well as also have some nutritional support. Patricio Maciel MD [email or web address]
--- NOTE | 2016-12-21 23:43 | CP.PCM.PN ---
Subjective - Date & Time of Evaluation Date of Evaluation: 12/21/16 Time of Evaluation: 23:43 - Subjective Subjective: CHIEF COMPLAINTS TODAY : PATIENT SEEN, CHART REVIEWED .Patient in ICU bed 6 s/p thoracentesism 500 mL /debbie colored fluid obtained breathing better. ROS.on observation. HEENT : N. Resp : No SOB wheezing, cough Cardio : No CP, PND orthopnea GI : No abd. 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 Musculoskel : N Ext. : Pedal pulses intact, no edema or calf pain Derm : N Psych : N. PE. Pt. AWAKE , COMFORTABLE V.S As noted in the chart Head ,ear nose,throat and eyes : Normal. Neck : Supple with normal carotids. Lungs: BILATERAL RALES RT>LT Heart : S1 & S2 normal .TACHYCARDIC . No murmur. Abd : Soft non tender with normal bowel sounds. Neuro : Moves all ext. with no localized deficit. Ext : No edema with intact pulses. Neg. calf tenderness Derm : No rashes or decubitus ulcer. Radiology/Labs . PLEURAL FLUID-wbcS 522, 92% NEUTROPHILS, 7% LYMPHOCYTES- ANGIO - CHEST 12/19/16 -VE PULMONARY EMBOLISM. lARGE RIGHT PLEURAL EFFUSION WITH COMPRESSIVE ATELECTASIS RIGHT LOWER LOBE ( see full report ) urine culture +ve yeast. Creatinine 0.7/BUN 26. REPEAT BLOOD CULTURES -VE GROWTH FOR 24 HOURS. Asssessment : RESPIRATORY FAILURE /CHF WITH LARGE NEUTROPHILIC RIGHT EFFUSION. s/p RT.THORACENTESIS GRAM-NEGATIVE SEPSIS +VE ESBL +VE E. COLI 2:2 SETS source of sepsis most likely vs GI CANDIDURIA CHF HISTORY OF B CELL- LYMPHOMA ( IN REMISSION ) PARKINSONISM. Plan : CONTINUE IV PRIMAXIN 500 MG EVERY 6 HOURLY .12/13/16. on iv DIFLUCAN 100 MG iv PIGGYBACK ONCE A DAY DAILY.12/19/16. FOLLOW-UP thoracentesis fluid cultures. As per care management specialist fOLLOW-UP RENAL FUNCTIONS. Objective - Vital Signs/Intake and Output Vital Signs (last 24 hours): Temp Pulse Resp BP Pulse Ox 97.6 F 89 18 85/53 L 97 12/21/16 12:00 12/21/16 18:41 12/21/16 18:41 12/21/16 18:43 12/21/16 18:41 Intake and Output: 12/21/16 12/22/16 18:59 06:59 Intake Total 510 Balance 510 - Medications Medications: Current Medications Carbidopa/Levodopa (Sinemet) 1 tab PO QID [facility] Last Admin: 12/21/16 22:45 Dose: Not Given Docusate Sodium (Colace) 100 mg PO TID [facility] Last Admin: 12/21/16 18:04 Dose: 100 mg Entacapone (Comtan) 200 mg PO ACBD [facility] Last Admin: 12/21/16 17:00 Dose: 200 mg Furosemide (Lasix) 20 mg IVP DAILY [facility] Last Admin: 12/21/16 10:36 Dose: 20 mg Heparin Sodium (Porcine) (Heparin) 5,000 units SC Q12H [facility] Last Admin: 12/21/16 18:00 Dose: 5,000 units Fluconazole (Diflucan Iv 100 Mg/50 Ml Ns) 50 mls @ 100 mls/hr IVPB DAILY [facility] Last Admin: 12/21/16 10:38 Dose: 100 mls/hr Imipenem/Cilastatin Sodium 500 (mg/ Sodium Chloride) 100 mls @ 100 mls/hr IVPB Q6H [facility] Last Admin: 12/21/16 18:00 Dose: 100 mls/hr Metoprolol Tartrate (Lopressor) 12.5 mg PO BID [facility] Last Admin: 12/21/16 18:03 Dose: 12.5 mg Pantoprazole Sodium (Protonix Inj) 40 mg IVP DAILY [facility] Last Admin: 12/21/16 10:36 Dose: 40 mg Polyethylene Glycol (Miralax) 17 gm PO Q8H PRN PRN Reason: Constipation Spironolactone (Aldactone) 25 mg PO DAILY [facility] Last Admin: 12/21/16 10:37 Dose: 25 mg - Labs Labs: 12/21/16 06:53 12/21/16 06:53 PT 16.7 SECONDS (9.7-12.2) H 12/11/16 13:34 INR 1.5 12/11/16 13:34 APTT 30 SECONDS (21-34) 12/11/16 13:34 Assessment and Plan (1) Altered mental status Status: Acute (2) Sepsis Status: Acute (3) UTI (urinary tract infection) Status: Acute (4) CHF (congestive heart failure) Status: Chronic (5) History of B-cell lymphoma Status: Chronic (6) Parkinson disease Status: Chronic
[2016-12-22 06:35] LABS: BASO % 0.5 % (0.0-2.0); EOS % 0.1 % (0.0-4.0); HEMATOCRIT 40.4 % (34.0-47.0); LYMPH # 0.8 K/uL (1.0-4.3); LYMPH % 13.9 % (20.0-40.0); MEAN CELL VOLUME 97.1 fL (81.0-99.0); MEAN CORPUSCULAR HEMOGLOBIN 31.3 pg (27.0-31.0); MEAN CORPUSCULAR HGB CONC 32.2 g/dL (33.0-37.0); MEAN PLATELET VOLUME 10.8 fL (7.2-11.7); MONO # 0.3 K/uL (0.0-0.8); MONO % 6.1 % (0.0-10.0); NRBC % 0.2 % (0.0-2.0); RED CELL DISTRIBUTION WIDTH 24.2 % (11.5-14.5); WHITE BLOOD COUNT 5.5 K/uL (4.8-10.8)
[2016-12-22 06:46] LABS: CHLORIDE 111 mmol/L (98-107); POTASSIUM 3.6 mmol/L (3.6-5.2); SODIUM 142 mmol/L (132-148)
[2016-12-22 06:48] LABS: ALKALINE PHOSPHATASE 88 U/L (38-126); AST/SGOT 28 U/L (14-36); CARBON DIOXIDE 19 mmol/L (22-30); GFR AFRICAN-AMERICAN > 60; TOTAL PROTEIN 5.5 g/dL (6.3-8.3)
[2016-12-22 06:49] LABS: ALT/SGPT 30 U/L (9-52); BLOOD UREA NITROGEN 20 mg/dL (7-17); CALCIUM 8.7 mg/dl (8.6-10.4); GLUCOSE,RANDOM 75 mg/dL (65-105); MAGNESIUM 1.7 mg/dL (1.6-2.3); PHOSPHOROUS 3.1 mg/dL (2.5-4.5)
[2016-12-22] MEDS: Fluconazole IV 100mg/50 ml NS 50 ML IVPB SCH (11:00)
--- NOTE | 2016-12-22 20:21 | CP.PCM.PN ---
Subjective - Date & Time of Evaluation Date of Evaluation: 12/22/16 Time of Evaluation: 20:18 - Subjective Subjective: Patient is now on the regular floor. Slightly more alert, with a a still poor appetite, afebrile and in no respiratory distress. WES:( HR: 108 regular Objective - Vital Signs/Intake and Output Vital Signs (last 24 hours): Temp Pulse Resp BP Pulse Ox 98.6 F 116 H 20 97/63 L 97 12/22/16 16:00 12/22/16 16:00 12/22/16 16:00 12/22/16 16:00 12/22/16 16:00 Intake and Output: 12/22/16 12/23/16 18:59 06:59 Intake Total 240 Output Total 1100 Balance -860 - Medications Medications: Current Medications Carbidopa/Levodopa (Sinemet) 1 tab PO QID [facility] Last Admin: 12/22/16 18:04 Dose: 1 tab Docusate Sodium (Colace) 100 mg PO TID [facility] Last Admin: 12/22/16 18:04 Dose: 100 mg Entacapone (Comtan) 200 mg PO ACBD [facility] Last Admin: 12/22/16 18:04 Dose: 200 mg Furosemide (Lasix) 20 mg IVP DAILY [facility] Last Admin: 12/22/16 11:00 Dose: Not Given Fluconazole (Diflucan Iv 100 Mg/50 Ml Ns) 50 mls @ 100 mls/hr IVPB DAILY [facility] Last Admin: 12/22/16 11:00 Dose: 100 mls/hr Imipenem/Cilastatin Sodium 500 (mg/ Sodium Chloride) 100 mls @ 100 mls/hr IVPB Q6H [facility] Last Admin: 12/22/16 18:05 Dose: 100 mls/hr Metoprolol Tartrate (Lopressor) 12.5 mg PO BID [facility] Last Admin: 12/22/16 18:04 Dose: Not Given Pantoprazole Sodium (Protonix Inj) 40 mg IVP DAILY [facility] Last Admin: 12/22/16 12:20 Dose: 40 mg Polyethylene Glycol (Miralax) 17 gm PO Q8H PRN PRN Reason: Constipation Spironolactone (Aldactone) 25 mg PO DAILY [facility] Last Admin: 12/22/16 12:16 Dose: Not Given - Labs Labs: 12/22/16 06:27 12/22/16 06:27 PT 16.7 SECONDS (9.7-12.2) H 12/11/16 13:34 INR 1.5 12/11/16 13:34 APTT 30 SECONDS (21-34) 12/11/16 13:34 - Constitutional Appears: Non-toxic, No Acute Distress, Chronically Ill - Head Exam Head Exam: NORMAL INSPECTION - Eye Exam Eye Exam: Normal appearance - ENT Exam ENT Exam: Normal Exam - Neck Exam Neck Exam: Normal Inspection - Respiratory Exam Additional comments: Rhonchi heard bibasilarly. - Cardiovascular Exam Cardiovascular Exam: Tachycardia, REGULAR RHYTHM - GI/Abdominal Exam GI & Abdominal Exam: Soft, Normal Bowel Sounds - Rectal Exam Rectal Exam: Deferred - Extremities Exam Extremities Exam: Normal Inspection - Back Exam Back Exam: NORMAL INSPECTION - Neurological Exam Neurological Exam: Alert, Awake - Psychiatric Exam Psychiatric exam: Flat Affect - Skin Skin Exam: Dry, Intact, Normal Color, Warm Assessment and Plan (1) Altered mental status Assessment & Plan: Improving mental status. Status: Acute (2) Parkinson disease Status: Chronic (3) UTI (urinary tract infection) Assessment & Plan: On Azactam. Status: Acute (4) Non-ischemic cardiomyopathy Assessment & Plan: S/p CHF, s/p left thoracentesis. To continue Diuretics. Status: Chronic
--- NOTE | 2016-12-22 22:58 | CP.PCM.PN ---
Subjective - Date & Time of Evaluation Date of Evaluation: 12/22/16 Time of Evaluation: 22:58 - Subjective Subjective: CHIEF COMPLAINTS TODAY : PATIENT SEENON F MORE AWAKE APPETITE IMPROVED. s/p thoracentesism 500 mL /debbie colored fluid obtained 12/20 breathing better. ROS.on observation. HEENT : N. Resp : No SOB wheezing, cough Cardio : No CP, PND orthopnea GI : No abd. 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 Musculoskel : N Ext. : Pedal pulses intact, no edema or calf pain Derm : N Psych : N. PE. Pt. AWAKE , COMFORTABLE V.S As noted in the chart Head ,ear nose,throat and eyes : Normal. Neck : Supple with normal carotids. Lungs: BILATERAL RALES RT>LT Heart : S1 & S2 normal .TACHYCARDIC . No murmur. Abd : Soft non tender with normal bowel sounds. Neuro : Moves all ext. with no localized deficit. Ext : No edema with intact pulses. Neg. calf tenderness Derm : No rashes or decubitus ulcer. Radiology/Labs . PLEURAL FLUID-wbcS 522, 92% NEUTROPHILS, 7% LYMPHOCYTES- ldh 77, TOTAL PROTEINS < 3.0 PLEURAL FLUID 12/20/16 -VE GROWTH. ANGIO - CHEST 12/19/16 -VE PULMONARY EMBOLISM. lARGE RIGHT PLEURAL EFFUSION WITH COMPRESSIVE ATELECTASIS RIGHT LOWER LOBE ( see full report ) urine culture +ve yeast. Creatinine 0.5/BUN 20-12/22/16 REPEAT BLOOD CULTURES -VE GROWTH Asssessment : RESPIRATORY FAILURE /CHF WITH LARGE NEUTROPHILIC RIGHT EFFUSION. s/p RT.THORACENTESIS GRAM-NEGATIVE SEPSIS +VE ESBL +VE E. COLI 2:2 SETS source of sepsis most likely vs GI CANDIDURIA CHF HISTORY OF B CELL- LYMPHOMA ( IN REMISSION ) PARKINSONISM. Plan : CONTINUE IV PRIMAXIN 500 MG EVERY 6 HOURLY .12/13/16. on iv DIFLUCAN 100 MG iv PIGGYBACK ONCE A DAY DAILY.12/19/16. FOLLOW-UP thoracentesis fluid cultures. fOLLOW-UP RENAL FUNCTIONS. DIET TOLERATED. Objective - Vital Signs/Intake and Output Vital Signs (last 24 hours): Temp Pulse Resp BP Pulse Ox 98.6 F 116 H 20 97/63 L 97 12/22/16 16:00 12/22/16 16:00 12/22/16 16:00 12/22/16 16:00 12/22/16 16:00 Intake and Output: 12/22/16 12/23/16 18:59 06:59 Intake Total 240 Output Total 1100 Balance -860 - Medications Medications: Current Medications Carbidopa/Levodopa (Sinemet) 1 tab PO QID [facility] Last Admin: 12/22/16 22:02 Dose: 1 tab Docusate Sodium (Colace) 100 mg PO TID [facility] Last Admin: 12/22/16 18:04 Dose: 100 mg Entacapone (Comtan) 200 mg PO ACBD [facility] Last Admin: 12/22/16 18:04 Dose: 200 mg Furosemide (Lasix) 20 mg IVP DAILY [facility] Last Admin: 12/22/16 11:00 Dose: Not Given Heparin Sodium (Porcine) (Heparin) 5,000 units SC Q12H [facility] Fluconazole (Diflucan Iv 100 Mg/50 Ml Ns) 50 mls @ 100 mls/hr IVPB DAILY [facility] Last Admin: 12/22/16 11:00 Dose: 100 mls/hr Imipenem/Cilastatin Sodium 500 (mg/ Sodium Chloride) 100 mls @ 100 mls/hr IVPB Q6H [facility] Last Admin: 12/22/16 18:05 Dose: 100 mls/hr Metoprolol Tartrate (Lopressor) 12.5 mg PO BID [facility] Last Admin: 12/22/16 18:04 Dose: Not Given Pantoprazole Sodium (Protonix Inj) 40 mg IVP DAILY [facility] Last Admin: 12/22/16 12:20 Dose: 40 mg Polyethylene Glycol (Miralax) 17 gm PO Q8H PRN PRN Reason: Constipation Spironolactone (Aldactone) 25 mg PO DAILY [facility] Last Admin: 12/22/16 12:16 Dose: Not Given - Labs Labs: 12/22/16 06:27 12/22/16 06:27 PT 16.7 SECONDS (9.7-12.2) H 12/11/16 13:34 INR 1.5 12/11/16 13:34 APTT 30 SECONDS (21-34) 12/11/16 13:34 Assessment and Plan (1) Altered mental status Status: Acute (2) Sepsis Status: Acute (3) UTI (urinary tract infection) Status: Acute (4) CHF (congestive heart failure) Status: Chronic (5) History of B-cell lymphoma Status: Chronic (6) Parkinson disease Status: Chronic
[2016-12-22 23:44] LABS: LDH PLEURAL FLUID 77 U/L
--- NOTE | 2016-12-23 09:57 | RAD ---
HISTORY: S/p left thoracentesis COMPARISON: 12/20/2016 FINDINGS: LUNGS: Right chest wall port with tip extending into the SVC. Prominent airspace consolidative changes throughout the right lung and left lung base. Small to moderate right and small left pleural effusion. PLEURA: As above. CARDIOVASCULAR: Cardiomegaly. Calcification at the aortic knob. OSSEOUS STRUCTURES: Degenerative changes in the spine and shoulders. VISUALIZED UPPER ABDOMEN: Normal. OTHER FINDINGS: None. IMPRESSION: Right chest wall port with tip extending into the SVC. Prominent airspace consolidative changes throughout the right lung and left lung base. Small to moderate right and small left pleural effusion.
[2016-12-23] MEDS: Fluconazole IV 100mg/50 ml NS 50 ML IVPB SCH (11:24)
--- NOTE | 2016-12-23 11:50 | CP.PCM.PN ---
Subjective - Date & Time of Evaluation Date of Evaluation: 12/23/16 Time of Evaluation: 11:50 - Subjective Subjective: patient is more alert now. She is eating better. Not in respiratory distress.. Objective - Vital Signs/Intake and Output Vital Signs (last 24 hours): Temp Pulse Resp BP Pulse Ox 98.6 F 110 H 20 100/65 97 12/23/16 08:34 12/23/16 08:34 12/23/16 08:34 12/23/16 11:34 12/23/16 08:34 Intake and Output: 12/23/16 12/23/16 06:59 18:59 Intake Total 200 300 Balance 200 300 - Medications Medications: Current Medications Carbidopa/Levodopa (Sinemet) 1 tab PO QID [facility] Last Admin: 12/23/16 11:26 Dose: 1 tab Docusate Sodium (Colace) 100 mg PO TID [facility] Last Admin: 12/23/16 11:26 Dose: 100 mg Entacapone (Comtan) 200 mg PO ACBD [facility] Last Admin: 12/23/16 06:29 Dose: 200 mg Furosemide (Lasix) 20 mg IVP DAILY [facility] Last Admin: 12/23/16 11:34 Dose: 20 mg Heparin Sodium (Porcine) (Heparin) 5,000 units SC Q12H [facility] Last Admin: 12/23/16 06:28 Dose: 5,000 units Fluconazole (Diflucan Iv 100 Mg/50 Ml Ns) 50 mls @ 100 mls/hr IVPB DAILY [facility] Last Admin: 12/23/16 11:24 Dose: 100 mls/hr Imipenem/Cilastatin Sodium 500 (mg/ Sodium Chloride) 100 mls @ 100 mls/hr IVPB Q6H [facility] Last Admin: 12/23/16 05:37 Dose: 100 mls/hr Metoprolol Tartrate (Lopressor) 12.5 mg PO BID [facility] Last Admin: 12/23/16 11:28 Dose: 12.5 mg Pantoprazole Sodium (Protonix Inj) 40 mg IVP DAILY [facility] Last Admin: 12/23/16 11:27 Dose: 40 mg Polyethylene Glycol (Miralax) 17 gm PO Q8H PRN PRN Reason: Constipation Spironolactone (Aldactone) 25 mg PO DAILY [facility] Last Admin: 12/23/16 11:27 Dose: Not Given - Labs Labs: 12/22/16 06:27 12/22/16 06:27 PT 16.7 SECONDS (9.7-12.2) H 12/11/16 13:34 INR 1.5 12/11/16 13:34 APTT 30 SECONDS (21-34) 12/11/16 13:34 - Constitutional Appears: Chronically Ill - Head Exam Head Exam: ATRAUMATIC, NORMAL INSPECTION, NORMOCEPHALIC - Eye Exam Eye Exam: Normal appearance Pupil Exam: PERRL - ENT Exam ENT Exam: Normal Exam - Neck Exam Neck Exam: Full ROM - Respiratory Exam Respiratory Exam: NORMAL BREATHING PATTERN - Cardiovascular Exam Cardiovascular Exam: Tachycardia, REGULAR RHYTHM - GI/Abdominal Exam GI & Abdominal Exam: Normal Bowel Sounds - Rectal Exam Rectal Exam: Deferred - Extremities Exam Extremities Exam: Full ROM, Normal Inspection - Back Exam Back Exam: NORMAL INSPECTION - Neurological Exam Neurological Exam: Altered, Awake - Psychiatric Exam Psychiatric exam: Depressed - Skin Skin Exam: Dry, Intact, Warm Assessment and Plan (1) Altered mental status Status: Acute (2) Sepsis Status: Acute (3) UTI (urinary tract infection) Status: Acute (4) History of B-cell lymphoma Status: Chronic (5) Parkinson disease Status: Chronic (6) CHF (congestive heart failure) Status: Chronic (7) Congestive cardiomyopathy Status: Chronic (8) Pleural effusion Status: Acute - Assessment and Plan (Free Text) Plan: Status---Acute Plan: Continue Diflucan Lasix and Spironolactone
--- NOTE | 2016-12-23 14:23 | CP.PCM.PN ---
Subjective - Date & Time of Evaluation Date of Evaluation: 12/23/16 Time of Evaluation: 13:00 - Subjective Subjective: patient seen and examined. Much more awake and responsive Fair appetite no shortness of breath Afebrile Objective - Vital Signs/Intake and Output Vital Signs (last 24 hours): Temp Pulse Resp BP Pulse Ox 98.6 F 110 H 20 100/65 97 12/23/16 08:34 12/23/16 08:34 12/23/16 08:34 12/23/16 11:34 12/23/16 08:34 Intake and Output: 12/23/16 12/23/16 06:59 18:59 Intake Total 200 300 Balance 200 300 - Medications Medications: Current Medications Carbidopa/Levodopa (Sinemet) 1 tab PO QID [facility] Last Admin: 12/23/16 11:26 Dose: 1 tab Docusate Sodium (Colace) 100 mg PO TID [facility] Last Admin: 12/23/16 12:52 Dose: Not Given Entacapone (Comtan) 200 mg PO ACBD [facility] Last Admin: 12/23/16 06:29 Dose: 200 mg Furosemide (Lasix) 20 mg IVP DAILY [facility] Last Admin: 12/23/16 11:34 Dose: 20 mg Heparin Sodium (Porcine) (Heparin) 5,000 units SC Q12H [facility] Last Admin: 12/23/16 06:28 Dose: 5,000 units Fluconazole (Diflucan Iv 100 Mg/50 Ml Ns) 50 mls @ 100 mls/hr IVPB DAILY [facility] Last Admin: 12/23/16 11:24 Dose: 100 mls/hr Imipenem/Cilastatin Sodium 500 (mg/ Sodium Chloride) 100 mls @ 100 mls/hr IVPB Q6H [facility] Last Admin: 12/23/16 12:51 Dose: 100 mls/hr Metoprolol Tartrate (Lopressor) 12.5 mg PO BID [facility] Last Admin: 12/23/16 11:28 Dose: 12.5 mg Pantoprazole Sodium (Protonix Inj) 40 mg IVP DAILY [facility] Last Admin: 12/23/16 11:27 Dose: 40 mg Polyethylene Glycol (Miralax) 17 gm PO Q8H PRN PRN Reason: Constipation Spironolactone (Aldactone) 25 mg PO DAILY [facility] Last Admin: 12/23/16 11:27 Dose: Not Given - Labs Labs: 12/22/16 06:27 12/22/16 06:27 PT 16.7 SECONDS (9.7-12.2) H 12/11/16 13:34 INR 1.5 12/11/16 13:34 APTT 30 SECONDS (21-34) 12/11/16 13:34 - Head Exam Head Exam: ATRAUMATIC, NORMOCEPHALIC - Eye Exam Eye Exam: Normal appearance - ENT Exam ENT Exam: Mucous Membranes Moist - Neck Exam Neck Exam: Full ROM, Normal Inspection - Respiratory Exam Respiratory Exam: Clear to Ausculation Bilateral - Cardiovascular Exam Cardiovascular Exam: Tachycardia, REGULAR RHYTHM - GI/Abdominal Exam GI & Abdominal Exam: Soft, Normal Bowel Sounds - Extremities Exam Extremities Exam: Normal Inspection - Neurological Exam Neurological Exam: Alert Assessment and Plan (1) Sepsis Assessment & Plan: continue antibiotics as per infectious disease Status post thoracentesis The patient is more awake and responsive Continue present treatment Status: Acute (2) Parkinson disease Status: Chronic (3) Congestive cardiomyopathy Status: Chronic (4) History of B-cell lymphoma Status: Chronic
[2016-12-24] MEDS: Pantoprazole 40 mg EC Tab PO SCH (09:56)
[2016-12-24] MEDS: Fluconazole IV 100mg/50 ml NS 50 ML IVPB SCH (09:59)
--- NOTE | 2016-12-24 10:36 | CP.PCM.PN ---
<Mirta Armstrong - Last Filed: 12/24/16 10:34> Subjective - Date & Time of Evaluation Date of Evaluation: 12/24/16 Time of Evaluation: 08:00 - Subjective Subjective: Pulmonology progress Note for Dr. Lyles: Patient was seen and examined at bedside. Patient is breathing better s/p thoracentesis. She was awake, alert and very responsive today. She was on NC but stated she was not SOB and that her breathing is improved. Still reporting minimal appetite but the family states she is slowly eating more than she was last week. Objective - Vital Signs/Intake and Output Vital Signs (last 24 hours): Temp Pulse Resp BP Pulse Ox 98.2 F 98 H 20 94/61 L 100 12/24/16 08:32 12/24/16 08:32 12/24/16 08:32 12/24/16 10:11 12/24/16 08:32 Intake and Output: 12/24/16 12/24/16 06:59 18:59 Intake Total 300 Balance 300 - Medications Medications: Current Medications Carbidopa/Levodopa (Sinemet) 1 tab PO QID [facility] Last Admin: 12/24/16 09:56 Dose: 1 tab Docusate Sodium (Colace) 100 mg PO TID [facility] Last Admin: 12/24/16 09:56 Dose: 100 mg Entacapone (Comtan) 200 mg PO ACBD [facility] Last Admin: 12/24/16 06:44 Dose: 200 mg Furosemide (Lasix) 20 mg IVP DAILY [facility] Last Admin: 12/24/16 09:57 Dose: Not Given Heparin Sodium (Porcine) (Heparin) 5,000 units SC Q12H [facility] Last Admin: 12/24/16 06:07 Dose: 5,000 units Fluconazole (Diflucan Iv 100 Mg/50 Ml Ns) 50 mls @ 100 mls/hr IVPB DAILY [facility] Last Admin: 12/24/16 09:59 Dose: 100 mls/hr Imipenem/Cilastatin Sodium 500 (mg/ Sodium Chloride) 100 mls @ 100 mls/hr IVPB Q6H [facility] Last Admin: 12/24/16 05:30 Dose: 100 mls/hr Metoprolol Tartrate (Lopressor) 12.5 mg PO BID [facility] Last Admin: 12/24/16 09:57 Dose: Not Given Pantoprazole Sodium (Protonix Ec Tab) 40 mg PO DAILY [facility] Last Admin: 12/24/16 09:56 Dose: 40 mg Polyethylene Glycol (Miralax) 17 gm PO Q8H PRN PRN Reason: Constipation Spironolactone (Aldactone) 25 mg PO DAILY [facility] Last Admin: 12/24/16 10:06 Dose: Not Given - Labs Labs: 12/22/16 06:27 12/22/16 06:27 PT 16.7 SECONDS (9.7-12.2) H 12/11/16 13:34 INR 1.5 12/11/16 13:34 APTT 30 SECONDS (21-34) 12/11/16 13:34 - Constitutional Appears: Non-toxic, No Acute Distress, Chronically Ill - Head Exam Head Exam: NORMAL INSPECTION - Respiratory Exam Respiratory Exam: Rales, NORMAL BREATHING PATTERN. absent: Accessory Muscle Use , Clear to Ausculation Bilateral, Respiratory Distress - Cardiovascular Exam Cardiovascular Exam: REGULAR RHYTHM, +S1, +S2 - GI/Abdominal Exam GI & Abdominal Exam: Soft, Normal Bowel Sounds. absent: Distended, Firm, Guarding, Tenderness - Extremities Exam Extremities Exam: Normal Inspection - Neurological Exam Neurological Exam: Alert, Awake, Oriented x3 - Psychiatric Exam Psychiatric exam: Normal Affect, Normal Mood - Skin Skin Exam: Dry, Intact, Normal Color, Warm Assessment and Plan (1) Pleural effusion Assessment & Plan: Resolved - likely secondary to fluid overload secondary to CHF Fluid gram stain negative Patient's mental status improving Continue antibiotics for UTI sepsis Status: Acute (2) Sepsis Assessment & Plan: Improving Continue abx Mental status improving Status: Acute (3) Congestive cardiomyopathy Status: Chronic (4) Parkinson disease Status: Chronic (5) History of B-cell lymphoma Status: Chronic <Yordan Lyles S - Last Filed: 12/24/16 11:52> Subjective - Date & Time of Evaluation Time of Evaluation: 09:00 Objective - Vital Signs/Intake and Output Vital Signs (last 24 hours): Temp Pulse Resp BP Pulse Ox 98.2 F 98 H 20 94/61 L 100 12/24/16 08:32 12/24/16 08:32 12/24/16 08:32 12/24/16 10:11 12/24/16 08:32 Intake and Output: 12/24/16 12/24/16 06:59 18:59 Intake Total 300 Balance 300 - Medications Medications: Current Medications Carbidopa/Levodopa (Sinemet) 1 tab PO QID [facility] Last Admin: 12/24/16 09:56 Dose: 1 tab Docusate Sodium (Colace) 100 mg PO TID [facility] Last Admin: 12/24/16 09:56 Dose: 100 mg Entacapone (Comtan) 200 mg PO ACBD [facility] Last Admin: 12/24/16 06:44 Dose: 200 mg Furosemide (Lasix) 20 mg IVP DAILY [facility] Last Admin: 12/24/16 09:57 Dose: Not Given Heparin Sodium (Porcine) (Heparin) 5,000 units SC Q12H [facility] Last Admin: 12/24/16 06:07 Dose: 5,000 units Fluconazole (Diflucan Iv 100 Mg/50 Ml Ns) 50 mls @ 100 mls/hr IVPB DAILY [facility] Last Admin: 12/24/16 09:59 Dose: 100 mls/hr Imipenem/Cilastatin Sodium 500 (mg/ Dextrose) 100 mls @ 100 mls/hr IVPB Q6H [facility] Metoprolol Tartrate (Lopressor) 12.5 mg PO BID [facility] Last Admin: 12/24/16 09:57 Dose: Not Given Pantoprazole Sodium (Protonix Ec Tab) 40 mg PO DAILY [facility] Last Admin: 12/24/16 09:56 Dose: 40 mg Polyethylene Glycol (Miralax) 17 gm PO Q8H PRN PRN Reason: Constipation Spironolactone (Aldactone) 25 mg PO DAILY [facility] Last Admin: 12/24/16 10:06 Dose: Not Given - Labs Labs: 12/22/16 06:27 12/22/16 06:27 PT 16.7 SECONDS (9.7-12.2) H 12/11/16 13:34 INR 1.5 12/11/16 13:34 APTT 30 SECONDS (21-34) 12/11/16 13:34 Assessment and Plan (1) Sepsis Status: Acute (2) Parkinson disease Status: Chronic (3) Congestive cardiomyopathy Status: Chronic (4) History of B-cell lymphoma Status: Chronic Attending/Attestation - Attestation I have personally seen and examined this patient.: Yes I have fully participated in the care of the patient.: Yes I have reviewed all pertinent clinical information, including history, physical exam and plan: Yes Notes (Text): 12/24/16 11:52 patient seen and examined. denies any shortness of breath, no chest pain Tachycardic Being treated for sepsis Physical therapy
--- NOTE | 2016-12-24 13:44 | CP.PCM.PN ---
Subjective - Date & Time of Evaluation Date of Evaluation: 12/24/16 Time of Evaluation: 01:45 - Subjective Subjective: Afebrile. Awake but non verbal at times. Eating slightly better. taking her medications with difficultiy. Lesser SOB, Less tachycardic. Objective - Vital Signs/Intake and Output Vital Signs (last 24 hours): Temp Pulse Resp BP Pulse Ox 98.2 F 98 H 20 94/61 L 100 12/24/16 08:32 12/24/16 08:32 12/24/16 08:32 12/24/16 10:11 12/24/16 08:32 Intake and Output: 12/24/16 12/24/16 06:59 18:59 Intake Total 300 Balance 300 - Medications Medications: Current Medications Carbidopa/Levodopa (Sinemet) 1 tab PO QID [facility] Last Admin: 12/24/16 09:56 Dose: 1 tab Docusate Sodium (Colace) 100 mg PO TID [facility] Last Admin: 12/24/16 09:56 Dose: 100 mg Entacapone (Comtan) 200 mg PO ACBD [facility] Last Admin: 12/24/16 06:44 Dose: 200 mg Furosemide (Lasix) 20 mg IVP DAILY [facility] Last Admin: 12/24/16 09:57 Dose: Not Given Heparin Sodium (Porcine) (Heparin) 5,000 units SC Q12H [facility] Last Admin: 12/24/16 06:07 Dose: 5,000 units Fluconazole (Diflucan Iv 100 Mg/50 Ml Ns) 50 mls @ 100 mls/hr IVPB DAILY [facility] Last Admin: 12/24/16 09:59 Dose: 100 mls/hr Imipenem/Cilastatin Sodium 500 (mg/ Dextrose) 100 mls @ 100 mls/hr IVPB Q6H [facility] Metoprolol Tartrate (Lopressor) 12.5 mg PO BID [facility] Last Admin: 12/24/16 09:57 Dose: Not Given Pantoprazole Sodium (Protonix Ec Tab) 40 mg PO DAILY [facility] Last Admin: 12/24/16 09:56 Dose: 40 mg Polyethylene Glycol (Miralax) 17 gm PO Q8H PRN PRN Reason: Constipation Spironolactone (Aldactone) 25 mg PO DAILY [facility] Last Admin: 12/24/16 10:06 Dose: Not Given - Labs Labs: 12/22/16 06:27 12/22/16 06:27 PT 16.7 SECONDS (9.7-12.2) H 12/11/16 13:34 INR 1.5 12/11/16 13:34 APTT 30 SECONDS (21-34) 12/11/16 13:34 - Constitutional Appears: Confused, Chronically Ill - Head Exam Head Exam: ATRAUMATIC, NORMAL INSPECTION, NORMOCEPHALIC - Eye Exam Pupil Exam: PERRL - ENT Exam ENT Exam: Mucous Membranes Moist - Neck Exam Neck Exam: Full ROM - Respiratory Exam Respiratory Exam: Decreased Breath Sounds - Cardiovascular Exam Cardiovascular Exam: Tachycardia, REGULAR RHYTHM, +S1, +S2 - GI/Abdominal Exam GI & Abdominal Exam: Soft, Normal Bowel Sounds - Rectal Exam Rectal Exam: Deferred - Extremities Exam Extremities Exam: Full ROM, Normal Inspection - Back Exam Back Exam: Full ROM - Neurological Exam Neurological Exam: Alert, Altered, Awake - Psychiatric Exam Psychiatric exam: Depressed - Skin Skin Exam: Dry, Intact, Warm Assessment and Plan (1) Altered mental status Status: Acute (2) Sepsis Status: Acute (3) UTI (urinary tract infection) Status: Acute (4) History of B-cell lymphoma Status: Chronic (5) Parkinson disease Status: Chronic (6) CHF (congestive heart failure) Status: Chronic (7) Congestive cardiomyopathy Status: Chronic (8) Pleural effusion Status: Acute - Assessment and Plan (Free Text) Plan: Status---Acute Plan: Continue IV antibiotics. Continue SINEMET, and COMYAN Continue LASIX and Spironolactone.
[2016-12-24 14:32] LABS: BASO % 0.7 % (0.0-2.0); EOS % 0.2 % (0.0-4.0); HEMATOCRIT 37.2 % (34.0-47.0); LYMPH # 0.7 K/uL (1.0-4.3); MEAN CELL VOLUME 96.7 fL (81.0-99.0); MEAN CORPUSCULAR HEMOGLOBIN 31.8 pg (27.0-31.0); MEAN CORPUSCULAR HGB CONC 32.9 g/dL (33.0-37.0); MEAN PLATELET VOLUME 10.4 fL (7.2-11.7); MONO # 0.4 K/uL (0.0-0.8); MONO % 10.7 % (0.0-10.0); NRBC % 0.2 % (0.0-2.0); RED CELL DISTRIBUTION WIDTH 23.2 % (11.5-14.5); WHITE BLOOD COUNT 3.6 K/uL (4.8-10.8)
[2016-12-24 14:36] LABS: CHLORIDE 106 mmol/L (98-107); SODIUM 136 mmol/L (132-148)
[2016-12-24 14:37] LABS: POTASSIUM 2.7 mmol/L (3.6-5.2)
[2016-12-24 14:39] LABS: CARBON DIOXIDE 26 mmol/L (22-30); GFR AFRICAN-AMERICAN > 60
[2016-12-24 14:40] LABS: BLOOD UREA NITROGEN 16 mg/dL (7-17); CALCIUM 8.2 mg/dl (8.6-10.4); GLUCOSE,RANDOM 94 mg/dL (65-105)
--- NOTE | 2016-12-24 14:51 | PN ---
DATE: 12/24/2016 SUBJECTIVE: The patient is seen. The patient is clinically improved. She is more alert, verbal, oriented x3. She is eating and taking her meds regularly. The patient also is willing to go for subacute rehab at [facility] as she was there before a few months ago. The patient is seen with her family and her daughter wants to take her to [place] once she is finished with her subacute rehab. PHYSICAL EXAMINATION: VITAL SIGNS: Temperature 98.2, pulse rate is 98, blood pressure is 94/61, respiration is 20, oxygen saturation is 100%. REVIEW OF SYSTEMS: GENERAL: The patient is alert, oriented x3, feeling better, seen in her room with her family. SKIN: No diaphoresis. HEENT: No headache. No dizziness. NECK: Supple. RESPIRATORY: No dyspnea. CARDIOVASCULAR: Chest pain. GASTROINTESTINAL: The patient is eating better and more compliant with her meds. Her family is asking if patient can have Ensure supplement twice a day. EXTREMITIES: The patient is moving extremities. MUSCULOSKELETAL: Feels weak. NEUROLOGIC: Alert and oriented x3. GENITOURINARY: No dysuria. MENTAL STATUS EXAMINATION: Elderly female, looks stated age, oriented x3. Mood is dysphoric but a little brighter. Affect is restricted, flat. Speech spontaneous. Thought process coherent. Thought content: No psychosis or suicidal ideation. Attention and memory seems to be fair. Insight and judgment fair. Impulse control is fair. IMPRESSION: Delirium, metabolic encephalopathy secondary to urinary tract infection, improving. PLAN AND RECOMMENDATIONS: The patient is seen, meds reviewed. Continue present management. May have supplement of Ensure twice a day. Continue antibiotics as ordered. The patient is amenable to go to subacute rehab to [facility] once medically stable. Psych roberts, the patient is improving clinically. There is no need to add any psych medication at this time. The patient was off psych medications as her blood pressure tends to be low but now that she is improving clinically, there is really no need to add antidepressant at this time, although the patient has a history of Parkinson's and is at high risk for depression. Continue treatment plan as outlined. Patricio Maciel MD [facility] # [id number] MTDD
[2016-12-24] MEDS: Potassium Chloride 20 mEq/15 ml LIQ UD PO SCH ×2 (17:35→23:06)
--- NOTE | 2016-12-24 17:52 | CP.PCM.PN ---
Subjective - Date & Time of Evaluation Date of Evaluation: 12/24/16 Time of Evaluation: 17:52 - Subjective Subjective: CHIEF COMPLAINTS TODAY : afebrile, still lethargic, no shortness of breath. appetite improving but still eating very little. s/p thoracentesism 500 mL /debbie colored fluid obtained 12/20 NIECE BY HER SIDE. ROS.on observation. HEENT : N. Resp : No SOB wheezing, cough Cardio : No CP, PND orthopnea GI : No abd. Pain, n/v FIT MODEL : No headache , focal deficit. Musculoskel : N Ext. : Pedal pulses intact, no edema or calf pain Derm : N Psych : N. PE. Pt. AWAKE , COMFORTABLE V.S As noted in the chart Head ,ear nose,throat and eyes : Normal. Neck : Supple with normal carotids. Lungs: BILATERAL RALES RT>LT Heart : S1 & S2 normal .TACHYCARDIC . No murmur. Abd : Soft non tender with normal bowel sounds. Neuro : Moves all ext. with no localized deficit. Ext : No edema with intact pulses. Neg. calf tenderness Derm : No rashes or decubitus ulcer. Radiology/Labs . wbc 3.6 LOW h&h 12.2/ cREATININE 0.6/bun 16 K2.5 PLEURAL FLUID-wbcS 522, 92% NEUTROPHILS, 7% LYMPHOCYTES- ldh 77, TOTAL PROTEINS < 3.0 PLEURAL FLUID 12/20/16 -VE GROWTH. PLEURAL FLUID CONSISTENT WITH TRANSUDATE. CHEST X-RAY 12/23/16 NOTEDprominent air space consolidative changes throughout right lung and left lower base. ANGIO - CHEST 12/19/16 -VE PULMONARY EMBOLISM. lARGE RIGHT PLEURAL EFFUSION WITH COMPRESSIVE ATELECTASIS RIGHT LOWER LOBE ( see full report ) urine culture +ve yeast. Creatinine 0.5/BUN 20-12/22/16 REPEAT BLOOD CULTURES -VE GROWTH Asssessment : S/P RESPIRATORY FAILURE / PNEUMONIA CHF WITH RIGHT-SIDED LARGE EFFUSION s/p RT.THORACENTESIS GRAM-NEGATIVE SEPSIS +VE ESBL +VE E. COLI 2:2 SETS source of sepsis most likely vs GI CANDIDURIA HISTORY OF B CELL- LYMPHOMA ( IN REMISSION ) PARKINSONISM. Plan : CONTINUE IV PRIMAXIN 500 MG EVERY 6 HOURLY .12/13/16. DECREASE DOSE TO 500 MG EVERY 12 HOURLY-DAY 12 X ONE WEEK MORE DC iv DIFLUCAN 100 MG iv PIGGYBACK ONCE A DAY DAILY.12/19/16 IN A.M. REPEAT ua URINE CULTURE STRAIGHT CATHETER. fOLLOW-UP RENAL FUNCTIONS. DIET TOLERATED. wILL DISCUSS WITH PMD.. Objective - Vital Signs/Intake and Output Vital Signs (last 24 hours): Temp Pulse Resp BP Pulse Ox 97.5 F L 115 H 20 97/61 L 95 12/24/16 17:50 12/24/16 17:50 12/24/16 17:50 12/24/16 17:50 12/24/16 17:50 Intake and Output: 12/24/16 12/24/16 06:59 18:59 Intake Total 300 150 Balance 300 150 - Medications Medications: Current Medications Carbidopa/Levodopa (Sinemet) 1 tab PO QID [facility] Last Admin: 12/24/16 17:14 Dose: 1 tab Docusate Sodium (Colace) 100 mg PO TID [facility] Last Admin: 12/24/16 17:14 Dose: 100 mg Entacapone (Comtan) 200 mg PO ACBD [facility] Last Admin: 12/24/16 17:01 Dose: 200 mg Furosemide (Lasix) 20 mg IVP DAILY [facility] Last Admin: 12/24/16 09:57 Dose: Not Given Heparin Sodium (Porcine) (Heparin) 5,000 units SC Q12H [facility] Last Admin: 12/24/16 06:07 Dose: 5,000 units Fluconazole (Diflucan Iv 100 Mg/50 Ml Ns) 50 mls @ 100 mls/hr IVPB DAILY [facility] Last Admin: 12/24/16 09:59 Dose: 100 mls/hr Imipenem/Cilastatin Sodium 500 (mg/ Dextrose) 100 mls @ 100 mls/hr IVPB Q6H [facility] Potassium Chloride (Potassium Chloride 10 Meq/100 Ml) 10 meq in 100 mls @ 100 mls/hr IVPB Q2H [facility] Stop: 12/24/16 18:59 Last Admin: 12/24/16 17:00 Dose: 100 mls/hr Metoprolol Tartrate (Lopressor) 12.5 mg PO BID [facility] Last Admin: 12/24/16 17:40 Dose: Not Given Pantoprazole Sodium (Protonix Ec Tab) 40 mg PO DAILY [facility] Last Admin: 12/24/16 09:56 Dose: 40 mg Polyethylene Glycol (Miralax) 17 gm PO Q8H PRN PRN Reason: Constipation Potassium Chloride (Potassium Chloride Oral Soln) 40 meq PO Q4H [facility] Stop: 12/24/16 20:01 Last Admin: 12/24/16 17:35 Dose: 40 meq Spironolactone (Aldactone) 25 mg PO DAILY [facility] Last Admin: 12/24/16 10:06 Dose: Not Given - Labs Labs: 12/24/16 14:19 12/24/16 14:19 PT 16.7 SECONDS (9.7-12.2) H 12/11/16 13:34 INR 1.5 12/11/16 13:34 APTT 30 SECONDS (21-34) 12/11/16 13:34 Assessment and Plan (1) Altered mental status Status: Acute (2) Sepsis Status: Acute (3) UTI (urinary tract infection) Status: Acute (4) CHF (congestive heart failure) Status: Chronic (5) History of B-cell lymphoma Status: Chronic (6) Parkinson disease Status: Chronic
[2016-12-24] MEDS: Imipenem/Cilastatin 500 MG in Dextrose 5% In Water 100 ML IVPB SCH ×4 (21:08→23:12)
[2016-12-24] MEDS ORDERED: Potassium Chloride 20 mEq/15 ml LIQ UD PO SCH ×2 (21:15→22:30)
[2016-12-25 00:46] LABS: RBC URINE 1 /hpf (0-3); URINE BILIRUBIN NEGATIVE (NEGATIVE); URINE BLOOD NEGATIVE (NEGATIVE); URINE COLOR Amber (YELLOW); URINE GLUCOSE (UA) 1+ mg/dL (Normal); URINE KETONE TRACE mg/dL (NEGATIVE); URINE LEUKOCYTE ESTERASE TRACE Leu/uL (Negative); URINE PROTEIN NEGATIVE (NEGATIVE); WBC URINE 5 /hpf (0-5)
[2016-12-25 07:40] LABS: BASO % 0.5 % (0.0-2.0); EOS % 0.5 % (0.0-4.0); HEMATOCRIT 36.7 % (34.0-47.0); LYMPH # 0.8 K/uL (1.0-4.3); MEAN CELL VOLUME 96.6 fL (81.0-99.0); MEAN CORPUSCULAR HEMOGLOBIN 31.8 pg (27.0-31.0); MEAN CORPUSCULAR HGB CONC 32.9 g/dL (33.0-37.0); MEAN PLATELET VOLUME 9.9 fL (7.2-11.7); MONO # 0.4 K/uL (0.0-0.8); MONO % 12.2 % (0.0-10.0); NRBC % 0.1 % (0.0-2.0)
[2016-12-25 07:46] LABS: CHLORIDE 106 mmol/L (98-107); POTASSIUM 3.1 mmol/L (3.6-5.2); SODIUM 139 mmol/L (132-148)
[2016-12-25 07:48] LABS: GFR AFRICAN-AMERICAN > 60
[2016-12-25 07:49] LABS: ALB/GLOB RATIO 1.4 (1.0-2.1); ALKALINE PHOSPHATASE 96 U/L (38-126); ALT/SGPT 25 U/L (9-52); AST/SGOT 24 U/L (14-36); BILIRUBIN,DIRECT 1.3 mg/dL (0.0-0.4); BLOOD UREA NITROGEN 16 mg/dL (7-17); CALCIUM 8.1 mg/dl (8.6-10.4); CARBON DIOXIDE 25 mmol/L (22-30); GLUCOSE,RANDOM 80 mg/dL (65-105); TOTAL PROTEIN 4.3 g/dL (6.3-8.3)
[2016-12-25 07:50] LABS: MAGNESIUM 1.5 mg/dL (1.6-2.3)
[2016-12-25] MEDS ORDERED: Potassium Chloride 20 mEq ER Tab PO STA (08:59)
[2016-12-25] MEDS: Pantoprazole 40 mg EC Tab PO SCH (09:27)
[2016-12-25] MEDS: Imipenem/Cilastatin 500 MG in Dextrose 5% In Water 100 ML IVPB SCH ×2 (09:30→22:06)
--- NOTE | 2016-12-25 09:46 | CP.PCM.PN ---
<Mirta Armstrong - Last Filed: 12/25/16 12:47> Subjective - Date & Time of Evaluation Date of Evaluation: 12/25/16 Time of Evaluation: 08:00 - Subjective Subjective: Pulmonology progress Note for Dr. Lyles: Patient was seen and examined at bedside. Patient is breathing better but ROS unreliable. She was awake, alert and very responsive today. She was on NC but stated she was not SOB and that her breathing is improved. Still reporting minimal appetite but the family states she is slowly eating more than she was last week. Objective - Vital Signs/Intake and Output Vital Signs (last 24 hours): Temp Pulse Resp BP Pulse Ox 98.5 F 121 H 20 90/66 L 99 12/25/16 09:00 12/25/16 09:00 12/25/16 09:00 12/25/16 09:28 12/25/16 09:00 Intake and Output: 12/25/16 12/25/16 06:59 18:59 Intake Total 550 Balance 550 - Medications Medications: Current Medications Carbidopa/Levodopa (Sinemet) 1 tab PO QID [facility] Last Admin: 12/25/16 09:27 Dose: 1 tab Docusate Sodium (Colace) 100 mg PO TID [facility] Last Admin: 12/25/16 09:23 Dose: 100 mg Entacapone (Comtan) 200 mg PO ACBD [facility] Last Admin: 12/25/16 06:42 Dose: 200 mg Furosemide (Lasix) 20 mg IVP DAILY [facility] Last Admin: 12/25/16 09:28 Dose: Not Given Heparin Sodium (Porcine) (Heparin) 5,000 units SC Q12H [facility] Last Admin: 12/25/16 06:03 Dose: 5,000 units Imipenem/Cilastatin Sodium 500 (mg/ Dextrose) 100 mls @ 100 mls/hr IVPB Q12H [facility] Last Admin: 12/25/16 09:30 Dose: 100 mls/hr Magnesium Sulfate/Dextrose (Magnesium Sulfate 1 Gm/100 Ml D5w) 1 gm in 100 mls @ 300 mls/hr IVPB Q30M [facility] Stop: 12/25/16 10:19 Metoprolol Tartrate (Lopressor) 12.5 mg PO BID [facility] Last Admin: 12/25/16 09:28 Dose: Not Given Pantoprazole Sodium (Protonix Ec Tab) 40 mg PO DAILY [facility] Last Admin: 12/25/16 09:27 Dose: 40 mg Polyethylene Glycol (Miralax) 17 gm PO Q8H PRN PRN Reason: Constipation Potassium Chloride (K-Dur 20 Meq Er Tab) 40 meq PO DAILY [facility] Potassium Chloride (Potassium Chloride Oral Soln) 40 meq PO STAT [facility] Stop: 12/25/16 09:31 Spironolactone (Aldactone) 25 mg PO DAILY [facility] Last Admin: 12/25/16 09:28 Dose: Not Given - Labs Labs: 12/25/16 07:28 12/25/16 07:28 PT 16.7 SECONDS (9.7-12.2) H 12/11/16 13:34 INR 1.5 12/11/16 13:34 APTT 30 SECONDS (21-34) 12/11/16 13:34 - Constitutional Appears: Non-toxic, No Acute Distress, Chronically Ill - ENT Exam ENT Exam: Mucous Membranes Moist - Respiratory Exam Respiratory Exam: Decreased Breath Sounds, Rales, NORMAL BREATHING PATTERN. absent: Accessory Muscle Use, Clear to Ausculation Bilateral, Respiratory Distress - Cardiovascular Exam Cardiovascular Exam: REGULAR RHYTHM, +S1, +S2 - GI/Abdominal Exam GI & Abdominal Exam: Soft, Normal Bowel Sounds. absent: Distended, Guarding, Tenderness - Neurological Exam Neurological Exam: Alert, Awake, Oriented x3 - Psychiatric Exam Psychiatric exam: Normal Affect, Normal Mood - Skin Skin Exam: Dry, Intact, Normal Color, Warm Assessment and Plan (1) Pleural effusion Assessment & Plan: Pleural effusion is returning and has been increasing. Patient has not been receiving CHF meds/diuretics due to bp in 90s systolic. Will consult IR for pigtail cath insertion. Fluid gram stain negative from thoracentesis on 12/20. Cytology negative for malignant cells. Patient's mental status improving Continue antibiotics for UTI sepsis Status: Acute (2) Sepsis Assessment & Plan: Improving Continue abx Mental status improving Status: Acute (3) Congestive cardiomyopathy Status: Chronic (4) Parkinson disease Status: Chronic (5) History of B-cell lymphoma Status: Chronic (6) Electrolyte abnormality Assessment & Plan: Mg and K low Status: Acute <Yordan Lyles - Last Filed: 12/25/16 18:38> Subjective - Date & Time of Evaluation Time of Evaluation: 09:20 Objective - Vital Signs/Intake and Output Vital Signs (last 24 hours): Temp Pulse Resp BP Pulse Ox 98.4 F 117 H 20 101/64 97 12/25/16 16:00 12/25/16 16:00 12/25/16 16:00 12/25/16 16:00 12/25/16 16:00 Intake and Output: 12/25/16 12/25/16 06:59 18:59 Intake Total 550 350 Balance 550 350 - Medications Medications: Current Medications Carbidopa/Levodopa (Sinemet) 1 tab PO QID [facility] Last Admin: 12/25/16 14:35 Dose: 1 tab Docusate Sodium (Colace) 100 mg PO TID [facility] Last Admin: 12/25/16 14:35 Dose: 100 mg Entacapone (Comtan) 200 mg PO ACBD [facility] Last Admin: 12/25/16 17:09 Dose: 200 mg Furosemide (Lasix) 20 mg IVP DAILY [facility] Last Admin: 12/25/16 09:28 Dose: Not Given Heparin Sodium (Porcine) (Heparin) 5,000 units SC Q12H [facility] Last Admin: 12/25/16 06:03 Dose: 5,000 units Imipenem/Cilastatin Sodium 500 (mg/ Dextrose) 100 mls @ 100 mls/hr IVPB Q12H [facility] Last Admin: 12/25/16 09:30 Dose: 100 mls/hr Magnesium Oxide (Mag-Ox) 400 mg PO BID [facility] Last Admin: 12/25/16 12:40 Dose: 400 mg Metoprolol Tartrate (Lopressor) 12.5 mg PO BID [facility] Last Admin: 12/25/16 09:28 Dose: Not Given Pantoprazole Sodium (Protonix Ec Tab) 40 mg PO DAILY [facility] Last Admin: 12/25/16 09:27 Dose: 40 mg Polyethylene Glycol (Miralax) 17 gm PO Q8H PRN PRN Reason: Constipation Potassium Chloride (K-Dur 20 Meq Er Tab) 40 meq PO DAILY [facility] Spironolactone (Aldactone) 25 mg PO DAILY [facility] Last Admin: 12/25/16 09:28 Dose: Not Given - Labs Labs: 12/25/16 07:28 12/25/16 07:28 PT 16.7 SECONDS (9.7-12.2) H 12/11/16 13:34 INR 1.5 12/11/16 13:34 APTT 30 SECONDS (21-34) 12/11/16 13:34 Assessment and Plan (1) Sepsis Status: Acute (2) Parkinson disease Status: Chronic (3) Congestive cardiomyopathy Status: Chronic (4) History of B-cell lymphoma Status: Chronic Attending/Attestation - Attestation I have personally seen and examined this patient.: Yes I have fully participated in the care of the patient.: Yes I have reviewed all pertinent clinical information, including history, physical exam and plan: Yes Notes (Text): 12/25/16 18:06 Patient seen and examined. Dyspnea on minimal exertion Reaccumulation of fluid noted IR for pigtail catheter Lasix on hold
[2016-12-25] MEDS ORDERED: Potassium Chloride 20 mEq/15 ml LIQ UD PO ONE (10:00)
[2016-12-25] MEDS ORDERED: Magnesium Sulfate 1 gm in D5W 1 GM/100 ML BAG IVPB ONE (11:00)
--- NOTE | 2016-12-25 11:24 | CP.PCM.PN ---
Subjective - Date & Time of Evaluation Date of Evaluation: 12/25/16 Time of Evaluation: 11:20 - Subjective Subjective: Afebrile. Awake, alert. eating very little. K -3.1, MG 1.1. In no respiratory distress. Objective - Vital Signs/Intake and Output Vital Signs (last 24 hours): Temp Pulse Resp BP Pulse Ox 98.5 F 121 H 20 90/66 L 99 12/25/16 09:00 12/25/16 09:00 12/25/16 09:00 12/25/16 09:28 12/25/16 09:00 Intake and Output: 12/25/16 12/25/16 06:59 18:59 Intake Total 550 Balance 550 - Medications Medications: Current Medications Carbidopa/Levodopa (Sinemet) 1 tab PO QID [facility] Last Admin: 12/25/16 09:27 Dose: 1 tab Docusate Sodium (Colace) 100 mg PO TID [facility] Last Admin: 12/25/16 09:23 Dose: 100 mg Entacapone (Comtan) 200 mg PO ACBD [facility] Last Admin: 12/25/16 06:42 Dose: 200 mg Furosemide (Lasix) 20 mg IVP DAILY [facility] Last Admin: 12/25/16 09:28 Dose: Not Given Heparin Sodium (Porcine) (Heparin) 5,000 units SC Q12H [facility] Last Admin: 12/25/16 06:03 Dose: 5,000 units Imipenem/Cilastatin Sodium 500 (mg/ Dextrose) 100 mls @ 100 mls/hr IVPB Q12H [facility] Last Admin: 12/25/16 09:30 Dose: 100 mls/hr Magnesium Oxide (Mag-Ox) 400 mg PO BID [facility] Metoprolol Tartrate (Lopressor) 12.5 mg PO BID [facility] Last Admin: 12/25/16 09:28 Dose: Not Given Pantoprazole Sodium (Protonix Ec Tab) 40 mg PO DAILY [facility] Last Admin: 12/25/16 09:27 Dose: 40 mg Polyethylene Glycol (Miralax) 17 gm PO Q8H PRN PRN Reason: Constipation Potassium Chloride (K-Dur 20 Meq Er Tab) 40 meq PO DAILY [facility] Spironolactone (Aldactone) 25 mg PO DAILY [facility] Last Admin: 12/25/16 09:28 Dose: Not Given - Labs Labs: 12/25/16 07:28 12/25/16 07:28 PT 16.7 SECONDS (9.7-12.2) H 12/11/16 13:34 INR 1.5 12/11/16 13:34 APTT 30 SECONDS (21-34) 12/11/16 13:34 - Constitutional Appears: Chronically Ill - Head Exam Head Exam: ATRAUMATIC, NORMAL INSPECTION, NORMOCEPHALIC - Eye Exam Eye Exam: Normal appearance Pupil Exam: PERRL - ENT Exam ENT Exam: Mucous Membranes Dry, Normal External Ear Exam - Neck Exam Neck Exam: Full ROM - Respiratory Exam Respiratory Exam: Decreased Breath Sounds, Rhonchi - Cardiovascular Exam Cardiovascular Exam: Tachycardia, REGULAR RHYTHM, +S1, +S2 - GI/Abdominal Exam GI & Abdominal Exam: Soft, Normal Bowel Sounds - Rectal Exam Rectal Exam: Deferred - Extremities Exam Extremities Exam: Full ROM, Normal Inspection - Neurological Exam Neurological Exam: Altered, Awake - Psychiatric Exam Psychiatric exam: Depressed - Skin Skin Exam: Dry, Intact, Normal Color Assessment and Plan (1) Altered mental status Status: Acute (2) Sepsis Status: Acute (3) UTI (urinary tract infection) Status: Acute (4) History of B-cell lymphoma Status: Chronic (5) Parkinson disease Status: Chronic (6) CHF (congestive heart failure) Status: Chronic (7) Congestive cardiomyopathy Status: Chronic (8) Pleural effusion Status: Acute - Assessment and Plan (Free Text) Plan: Plan: K-Dur 20 meq BID [facility] Oxide 400 mgm po bid. Check Ct Scan chest done today. Check result of Urine C/S
[2016-12-25] MEDS: Magnesium Oxide 400 mg Tab UD PO SCH ×2 (12:40→18:41)
--- NOTE | 2016-12-25 12:40 | CT ---
PROCEDURE: CT Chest without contrast HISTORY: eval pleural effusion vs mass COMPARISON: CT chest 12/19/2026 TECHNIQUE: Contiguous axial images were obtained through the chest without intravenous contrast enhancement. Sagittal and coronal reconstructions were performed. Radiation dose (DLP): 367.96 mGy-cm. This CT exam was performed using one or more of the following dose reduction techniques: Automated exposure control, adjustment of the mA and/or kV according to patient size, and/or use of iterative reconstruction technique. FINDINGS: LUNGS: Right lower lobe subsegmental atelectasis. Likely secondary to pleural effusion. Trace left lower lobe subsegmental atelectasis. Moderate right pleural effusion and trace left pleural effusion. Minimal right upper lobe subsegmental atelectasis likely secondary to pleural effusion. No pulmonary infiltrate. MEDIASTINUM: Unremarkable thoracic aorta. No aneurysm. Cardiomegaly. Right subclavian central venous infusion port. . Main pulmonary artery unremarkable. No vascular congestion. No lymphadenopathy. PLEURA: As above BONES: No fracture. No destructive lesion. UPPER ABDOMEN: Mild generalized ascites noted. OTHER FINDINGS: None. IMPRESSION: Moderate right and small left pleural effusion. Compressive atelectasis right lower lobe and minimal compressive atelectasis right upper lobe. Trace subsegmental atelectasis left lower lobe. Cardiomegaly. Central venous infusion port. Ascites.
[2016-12-25] MEDS: Magnesium Sulfate 1 gm in D5W 1 GM/100 ML BAG IVPB SCH ×2 (12:44→12:45)
--- NOTE | 2016-12-25 23:39 | CP.PCM.PN ---
Subjective - Date & Time of Evaluation Date of Evaluation: 12/25/16 Time of Evaluation: 23:39 - Subjective Subjective: CHIEF COMPLAINTS TODAY : afebrile, still lethargic, dyspneic, BP 90/60 eating poorly.. s/p CT chest today ROS.on observation. HEENT : N. Resp : +ve SOB wheezing, cough Cardio : No CP, PND orthopnea GI : No abd. Pain, n/v PHOTOCOPY OPERATOR : No headache , focal deficit. Musculoskel : N Ext. : Pedal pulses intact, no edema or calf pain Derm : N Psych : N. PE. Pt. AWAKE , COMFORTABLE V.S As noted in the chart Head ,ear nose,throat and eyes : Normal. Neck : Supple with normal carotids. Lungs: DIMINISHED BREATH SOUNDS AT THE BASES RT> LT Heart : S1 & S2 normal .TACHYCARDIC . No murmur. Abd : Soft non tender with normal bowel sounds. Neuro : Moves all ext. with no localized deficit. Ext : No edema with intact pulses. Neg. calf tenderness Derm : No rashes or decubitus ulcer. Radiology/Labs . wbc 3.[address] CHEST NOTED.12/25/16 MODERATE RIGHT AND LEFT PLEURAL EFFUSION, BILATERAL COMPRESSIVE ATELECTASIS CENTRAL VENOUS PORT, +VE ASCITES PLEURAL FLUID 12/20/16 -VE GROWTH. PLEURAL FLUID CONSISTENT WITH TRANSUDATE. CHEST X-RAY 12/23/16 NOTED prominent air space consolidative changes throughout right lung and left lower base. REPEAT BLOOD CULTURES -VE GROWTH Asssessment : S/P RESPIRATORY FAILURE / PNEUMONIA CHF WITH RIGHT-SIDED LARGE EFFUSION s/p RT.THORACENTESIS 12/20/16. GRAM-NEGATIVE SEPSIS +VE ESBL +VE E. COLI 2:2 SETS source of sepsis most likely vs GI CANDIDURIA HISTORY OF B CELL- LYMPHOMA ( IN REMISSION ) PARKINSONISM. Plan : CONTINUE IV PRIMAXIN 500 MG EVERY 6 HOURLY .12/13/16. DECREASE DOSE TO 500 MG EVERY 12 HOURLY-DAY 12 X ONE WEEK MORE REPEAT ua URINE CULTURE STRAIGHT CATHETER.- PENDING CASE DISCUSSED WITH STAFF /PULMONARY TEAM PATIENT FOR RT CHEST PIGTAIL CATHETER. dIURESIS GENTLY, PATIENT'S BLOOD PRESSURE VERY LABILE KaND MAGNESIUM SUPPLEMENT fOLLOW-UP RENAL FUNCTIONS. DIET TOLERATED. Objective - Vital Signs/Intake and Output Vital Signs (last 24 hours): Temp Pulse Resp BP Pulse Ox 98.4 F 117 H 20 101/64 97 12/25/16 16:00 12/25/16 16:00 12/25/16 16:00 12/25/16 16:00 12/25/16 16:00 Intake and Output: 12/25/16 12/26/16 18:59 06:59 Intake Total 350 500 Balance 350 500 - Medications Medications: Current Medications Carbidopa/Levodopa (Sinemet) 1 tab PO QID [facility] Last Admin: 12/25/16 22:06 Dose: 1 tab Docusate Sodium (Colace) 100 mg PO TID [facility] Last Admin: 12/25/16 18:43 Dose: 100 mg Entacapone (Comtan) 200 mg PO ACBD [facility] Last Admin: 12/25/16 17:09 Dose: 200 mg Furosemide (Lasix) 20 mg IVP DAILY [facility] Last Admin: 12/25/16 09:28 Dose: Not Given Heparin Sodium (Porcine) (Heparin) 5,000 units SC Q12H [facility] Last Admin: 12/25/16 18:41 Dose: 5,000 units Imipenem/Cilastatin Sodium 500 (mg/ Dextrose) 100 mls @ 100 mls/hr IVPB Q12H [facility] Last Admin: 12/25/16 22:06 Dose: 100 mls/hr Magnesium Oxide (Mag-Ox) 400 mg PO BID [facility] Last Admin: 12/25/16 18:41 Dose: 400 mg Metoprolol Tartrate (Lopressor) 12.5 mg PO BID [facility] Last Admin: 12/25/16 18:42 Dose: Not Given Pantoprazole Sodium (Protonix Ec Tab) 40 mg PO DAILY [facility] Last Admin: 12/25/16 09:27 Dose: 40 mg Polyethylene Glycol (Miralax) 17 gm PO Q8H PRN PRN Reason: Constipation Potassium Chloride (K-Dur 20 Meq Er Tab) 40 meq PO DAILY [facility] Spironolactone (Aldactone) 25 mg PO DAILY [facility] Last Admin: 12/25/16 09:28 Dose: Not Given - Labs Labs: 12/25/16 07:28 12/25/16 07:28 PT 16.7 SECONDS (9.7-12.2) H 12/11/16 13:34 INR 1.5 12/11/16 13:34 APTT 30 SECONDS (21-34) 12/11/16 13:34 Assessment and Plan (1) Altered mental status Status: Acute (2) Sepsis Status: Acute (3) UTI (urinary tract infection) Status: Acute (4) CHF (congestive heart failure) Status: Chronic (5) History of B-cell lymphoma Status: Chronic (6) Parkinson disease Status: Chronic
[2016-12-26 08:28] LABS: CHLORIDE 105 mmol/L (98-107); POTASSIUM 3.6 mmol/L (3.6-5.2); SODIUM 137 mmol/L (132-148)
[2016-12-26 08:31] LABS: BLOOD UREA NITROGEN 18 mg/dL (7-17); CARBON DIOXIDE 23 mmol/L (22-30); GFR AFRICAN-AMERICAN > 60
[2016-12-26 08:32] LABS: CALCIUM 8.3 mg/dl (8.6-10.4); GLUCOSE,RANDOM 64 mg/dL (65-105)
--- NOTE | 2016-12-26 10:03 | PCM.SURG1 ---
Surgeon's Initial Post Op Note - Surgeon's Notes Surgeon: ANGELO Hines Tree Feller Operator: None Type of Anesthesia: Local Pre-Operative Diagnosis: Moderate right pleural effusion Operative Findings: US showed a moderate right pleural effusion that appears simple Post-Operative Diagnosis: Moderate right pleural effusion Operation Performed: US guided right thoracentesis Specimen/Specimens Removed: 500 cc of straw colored fluid Estimated Blood Loss: EBL {In ML}: 0 Blood Products Given: N/A Drains Used: No Drains Post-Op Condition: Fair Date of Surgery/Procedure: 12/26/16 Time of Surgery/Procedure: 10:00
[2016-12-26] MEDS: Pantoprazole 40 mg EC Tab PO SCH (11:17)
[2016-12-26] MEDS: Imipenem/Cilastatin 500 MG in Dextrose 5% In Water 100 ML IVPB SCH ×2 (11:18→22:09)
[2016-12-26] MEDS: Magnesium Oxide 400 mg Tab UD PO SCH ×2 (11:18→18:08)
[2016-12-26] MEDS: Potassium Chloride 20 mEq ER Tab PO SCH (11:18)
--- NOTE | 2016-12-26 11:39 | CP.PCM.PN ---
Subjective - Date & Time of Evaluation Date of Evaluation: 12/26/16 Time of Evaluation: 11:25 - Subjective Subjective: Patient is afebrile. Just came back from thoracentesis for moderate pleural effusion. Obtained 500 cc of sroue fluids. Patient is not eating well nor drinking enough fluids. Cat scan of lungs showed atelectasis, and also showed ascites. Will have to get CAT Scan of the abdomen to assess the cause of the ascites knowing that she had diffuse large cell lymphoma . Objective - Vital Signs/Intake and Output Vital Signs (last 24 hours): Temp Pulse Resp BP Pulse Ox 98.4 F 80 20 81/40 L 94 L 12/26/16 07:54 12/26/16 07:54 12/26/16 07:54 12/26/16 07:54 12/26/16 07:54 Intake and Output: 12/26/16 12/26/16 06:59 18:59 Intake Total 500 Balance 500 - Medications Medications: Current Medications Carbidopa/Levodopa (Sinemet) 1 tab PO QID [facility] Last Admin: 12/25/16 22:06 Dose: 1 tab Docusate Sodium (Colace) 100 mg PO TID [facility] Last Admin: 12/25/16 18:43 Dose: 100 mg Entacapone (Comtan) 200 mg PO ACBD [facility] Last Admin: 12/26/16 08:30 Dose: Not Given Furosemide (Lasix) 20 mg IVP DAILY [facility] Last Admin: 12/25/16 09:28 Dose: Not Given Heparin Sodium (Porcine) (Heparin) 5,000 units SC Q12H [facility] Last Admin: 12/26/16 08:00 Dose: Not Given Imipenem/Cilastatin Sodium 500 (mg/ Dextrose) 100 mls @ 100 mls/hr IVPB Q12H [facility] Last Admin: 12/25/16 22:06 Dose: 100 mls/hr Magnesium Oxide (Mag-Ox) 400 mg PO BID [facility] Last Admin: 12/25/16 18:41 Dose: 400 mg Metoprolol Tartrate (Lopressor) 12.5 mg PO BID [facility] Last Admin: 12/25/16 18:42 Dose: Not Given Pantoprazole Sodium (Protonix Ec Tab) 40 mg PO DAILY [facility] Last Admin: 12/25/16 09:27 Dose: 40 mg Polyethylene Glycol (Miralax) 17 gm PO Q8H PRN PRN Reason: Constipation Potassium Chloride (K-Dur 20 Meq Er Tab) 40 meq PO DAILY [facility] Spironolactone (Aldactone) 25 mg PO DAILY [facility] Last Admin: 12/25/16 09:28 Dose: Not Given - Labs Labs: 12/25/16 07:28 12/26/16 07:36 PT 16.7 SECONDS (9.7-12.2) H 12/11/16 13:34 INR 1.5 12/11/16 13:34 APTT 30 SECONDS (21-34) 12/11/16 13:34 - Constitutional Appears: No Acute Distress, Chronically Ill - Head Exam Head Exam: ATRAUMATIC, NORMAL INSPECTION, NORMOCEPHALIC - Eye Exam Eye Exam: Normal appearance Pupil Exam: PERRL - ENT Exam ENT Exam: Normal External Ear Exam - Neck Exam Neck Exam: Full ROM - Respiratory Exam Respiratory Exam: Decreased Breath Sounds, NORMAL BREATHING PATTERN - Cardiovascular Exam Cardiovascular Exam: Tachycardia, +S1, +S2 - GI/Abdominal Exam GI & Abdominal Exam: Soft, Normal Bowel Sounds - Rectal Exam Rectal Exam: Deferred - Extremities Exam Extremities Exam: Full ROM - Neurological Exam Neurological Exam: Alert, Awake - Psychiatric Exam Psychiatric exam: Depressed - Skin Skin Exam: Dry, Intact Assessment and Plan (1) Altered mental status Status: Acute (2) Sepsis Status: Acute (3) UTI (urinary tract infection) Status: Acute (4) History of B-cell lymphoma Status: Chronic (5) Parkinson disease Status: Chronic (6) CHF (congestive heart failure) Status: Chronic (7) Congestive cardiomyopathy Status: Chronic (8) Pleural effusion Status: Acute - Assessment and Plan (Free Text) Plan: Plan: Continue IV antibiotics. CAT SCAN abdomen. Check urine C/S. Check result of pleural fluid.
[2016-12-26 11:54] LABS: MAGNESIUM 1.8 mg/dL (1.6-2.3)
--- NOTE | 2016-12-26 14:23 | US ---
PROCEDURE: Date of procedure: 12/26/2016 Procedure: 1. Ultrasound-guided Right thoracentesis, CPT 71912 Medications: 6cc 1% Lidocaine HISTORY: Right pleural effusion, shortness of breath TECHNIQUE: Following informed consent ,the Patients' right chest was marked. Procedure time-out was called, and the patient was placed in the sitting position and limited ultrasound showed a large right effusion. The patient's right back was prepped and draped in the usual sterile fashion. After the skin was anesthetized with lidocaine, a drainage catheter was advanced under ultrasound guidance into the pleural space. Ultrasound-guided thoracentesis was performed. A total of 500 cubic centimeters of straw-colored fluid removed without complication. A Xeroform dressing was applied. IMPRESSION: Ultrasound guided Right thoracentesis. There were no immediate complications.
--- NOTE | 2016-12-26 14:59 | CP.PCM.PN ---
<Mirta Armstrong - Last Filed: 12/26/16 14:52> Subjective - Date & Time of Evaluation Date of Evaluation: 12/26/16 Time of Evaluation: 08:00 - Subjective Subjective: Pulmonology progress Note for Dr. Lyles: Patient was seen and examined at bedside. Patient is breathing better but ROS unreliable. She was awake, alert. Full ROS not obtained due to patient's mental status. Per the family she was eating more for lunch today but still has a poor appetite. Objective - Vital Signs/Intake and Output Vital Signs (last 24 hours): Temp Pulse Resp BP Pulse Ox 98.4 F 80 20 93/59 L 94 L 12/26/16 07:54 12/26/16 07:54 12/26/16 07:54 12/26/16 11:00 12/26/16 07:54 Intake and Output: 12/26/16 12/26/16 06:59 18:59 Intake Total 500 Balance 500 - Medications Medications: Current Medications Carbidopa/Levodopa (Sinemet) 1 tab PO QID [facility] Last Admin: 12/26/16 11:17 Dose: 1 tab Docusate Sodium (Colace) 100 mg PO TID [facility] Last Admin: 12/26/16 11:17 Dose: 100 mg Entacapone (Comtan) 200 mg PO ACBD [facility] Last Admin: 12/26/16 08:30 Dose: Not Given Furosemide (Lasix) 20 mg IVP DAILY [facility] Last Admin: 12/26/16 11:00 Dose: Not Given Heparin Sodium (Porcine) (Heparin) 5,000 units SC Q12H [facility] Last Admin: 12/26/16 08:00 Dose: Not Given Imipenem/Cilastatin Sodium 500 (mg/ Dextrose) 100 mls @ 100 mls/hr IVPB Q12H [facility] Last Admin: 12/26/16 11:18 Dose: 100 mls/hr Magnesium Oxide (Mag-Ox) 400 mg PO BID [facility] Last Admin: 12/26/16 11:18 Dose: 400 mg Metoprolol Tartrate (Lopressor) 12.5 mg PO BID [facility] Last Admin: 12/26/16 11:00 Dose: Not Given Pantoprazole Sodium (Protonix Ec Tab) 40 mg PO DAILY [facility] Last Admin: 12/26/16 11:17 Dose: 40 mg Polyethylene Glycol (Miralax) 17 gm PO Q8H PRN PRN Reason: Constipation Potassium Chloride (K-Dur 20 Meq Er Tab) 40 meq PO DAILY [facility] Last Admin: 12/26/16 11:18 Dose: 40 meq Spironolactone (Aldactone) 25 mg PO DAILY [facility] Last Admin: 12/26/16 11:00 Dose: Not Given - Labs Labs: 12/25/16 07:28 12/26/16 07:36 PT 16.7 SECONDS (9.7-12.2) H 12/11/16 13:34 INR 1.5 12/11/16 13:34 APTT 30 SECONDS (21-34) 12/11/16 13:34 - Constitutional Appears: Non-toxic, No Acute Distress, Chronically Ill - Head Exam Head Exam: NORMAL INSPECTION - Respiratory Exam Respiratory Exam: Decreased Breath Sounds, Rales, NORMAL BREATHING PATTERN. absent: Accessory Muscle Use, Wheezes, Respiratory Distress - Cardiovascular Exam Cardiovascular Exam: REGULAR RHYTHM, +S1, +S2 Assessment and Plan (1) Pleural effusion Assessment & Plan: S/P thoracentesis 12/26 -> 500 CC fluid removed from right lung Pleural effusion is returning and has been increasing. Patient has not been receiving CHF meds/diuretics due to bp in 90s systolic. Fluid gram stain negative from thoracentesis on 12/20. Cytology negative for malignant cells. Patient's mental status improving Continue antibiotics for UTI sepsis Status: Acute (2) Sepsis Assessment & Plan: Improved Status: Acute (3) Congestive cardiomyopathy Assessment & Plan: Metoprolol and Lasix being held due to lower BP. Status: Chronic (4) Parkinson disease Status: Chronic (5) History of B-cell lymphoma Status: Chronic (6) Electrolyte abnormality Status: Acute <Yordan Lyles S - Last Filed: 12/26/16 16:14> Subjective - Date & Time of Evaluation Time of Evaluation: 09:00 Objective - Vital Signs/Intake and Output Vital Signs (last 24 hours): Temp Pulse Resp BP Pulse Ox 98.4 F 80 20 93/59 L 94 L 12/26/16 07:54 12/26/16 07:54 12/26/16 07:54 12/26/16 11:00 12/26/16 07:54 Intake and Output: 12/26/16 12/26/16 06:59 18:59 Intake Total 500 Balance 500 - Medications Medications: Current Medications Carbidopa/Levodopa (Sinemet) 1 tab PO QID [facility] Last Admin: 12/26/16 15:00 Dose: 1 tab Docusate Sodium (Colace) 100 mg PO TID [facility] Last Admin: 12/26/16 15:00 Dose: 100 mg Entacapone (Comtan) 200 mg PO ACBD [facility] Last Admin: 12/26/16 08:30 Dose: Not Given Furosemide (Lasix) 20 mg IVP DAILY [facility] Last Admin: 12/26/16 11:00 Dose: Not Given Heparin Sodium (Porcine) (Heparin) 5,000 units SC Q12H [facility] Last Admin: 12/26/16 08:00 Dose: Not Given Imipenem/Cilastatin Sodium 500 (mg/ Dextrose) 100 mls @ 100 mls/hr IVPB Q12H [facility] Last Admin: 12/26/16 11:18 Dose: 100 mls/hr Magnesium Oxide (Mag-Ox) 400 mg PO BID [facility] Last Admin: 12/26/16 11:18 Dose: 400 mg Metoprolol Tartrate (Lopressor) 12.5 mg PO BID [facility] Last Admin: 12/26/16 11:00 Dose: Not Given Pantoprazole Sodium (Protonix Ec Tab) 40 mg PO DAILY [facility] Last Admin: 12/26/16 11:17 Dose: 40 mg Polyethylene Glycol (Miralax) 17 gm PO Q8H PRN PRN Reason: Constipation Potassium Chloride (K-Dur 20 Meq Er Tab) 40 meq PO DAILY [facility] Last Admin: 12/26/16 11:18 Dose: 40 meq Spironolactone (Aldactone) 25 mg PO DAILY [facility] Last Admin: 12/26/16 11:00 Dose: Not Given - Labs Labs: 12/25/16 07:28 12/26/16 07:36 PT 16.7 SECONDS (9.7-12.2) H 12/11/16 13:34 INR 1.5 12/11/16 13:34 APTT 30 SECONDS (21-34) 12/11/16 13:34 Assessment and Plan (1) Sepsis Status: Acute (2) Parkinson disease Status: Chronic (3) Congestive cardiomyopathy Status: Chronic (4) History of B-cell lymphoma Status: Chronic Attending/Attestation - Attestation I have personally seen and examined this patient.: Yes I have fully participated in the care of the patient.: Yes I have reviewed all pertinent clinical information, including history, physical exam and plan: Yes Notes (Text): 12/26/16 16:05 Patient seen and examined . Case discussed with house staff Status post thoracentesis Patient is much more awake and responsive Able to tolerate food with fair appetite Continue antibiotics We will consider ICU if any change in patient's status
--- NOTE | 2016-12-26 23:16 | CP.PCM.PN ---
Subjective - Date & Time of Evaluation Date of Evaluation: 12/26/16 Time of Evaluation: 23:16 - Subjective Subjective: S/P RIGHT THORACENTESIS BY IR.TODAY. 500 ML STRAW-COLORED PLEURAL FLUID DRAINED. PATIENT PRESENTLY COMFORTABLE BUT DROWSY. EATING POORLY . Objective - Vital Signs/Intake and Output Vital Signs (last 24 hours): Temp Pulse Resp BP Pulse Ox 98.4 F 123 H 22 97/59 L 98 12/26/16 07:54 12/26/16 10:45 12/26/16 10:45 12/26/16 16:35 12/26/16 10:45 Intake and Output: 12/26/16 12/27/16 18:59 06:59 Intake Total 300 350 Balance 300 350 - Medications Medications: Current Medications Carbidopa/Levodopa (Sinemet) 1 tab PO QID [facility] Last Admin: 12/26/16 22:09 Dose: 1 tab Docusate Sodium (Colace) 100 mg PO TID [facility] Last Admin: 12/26/16 22:01 Dose: Not Given Entacapone (Comtan) 200 mg PO ACBD [facility] Last Admin: 12/26/16 18:07 Dose: 200 mg Furosemide (Lasix) 20 mg IVP DAILY [facility] Last Admin: 12/26/16 11:00 Dose: Not Given Heparin Sodium (Porcine) (Heparin) 5,000 units SC Q12H [facility] Last Admin: 12/26/16 18:56 Dose: 5,000 units Imipenem/Cilastatin Sodium 500 (mg/ Dextrose) 100 mls @ 100 mls/hr IVPB Q12H [facility] Last Admin: 12/26/16 22:09 Dose: 100 mls/hr Magnesium Oxide (Mag-Ox) 400 mg PO BID [facility] Last Admin: 12/26/16 18:08 Dose: 400 mg Metoprolol Tartrate (Lopressor) 12.5 mg PO BID [facility] Last Admin: 12/26/16 18:15 Dose: Not Given Pantoprazole Sodium (Protonix Ec Tab) 40 mg PO DAILY [facility] Last Admin: 12/26/16 11:17 Dose: 40 mg Polyethylene Glycol (Miralax) 17 gm PO Q8H PRN PRN Reason: Constipation Potassium Chloride (K-Dur 20 Meq Er Tab) 40 meq PO DAILY [facility] Last Admin: 12/26/16 11:18 Dose: 40 meq Spironolactone (Aldactone) 25 mg PO DAILY [facility] Last Admin: 12/26/16 11:00 Dose: Not Given - Labs Labs: 12/25/16 07:28 12/26/16 07:36 PT 16.7 SECONDS (9.7-12.2) H 12/11/16 13:34 INR 1.5 12/11/16 13:34 APTT 30 SECONDS (21-34) 12/11/16 13:34 - Constitutional Appears: No Acute Distress, Cachectic, Chronically Ill - Head Exam Head Exam: NORMAL INSPECTION - Eye Exam Eye Exam: PERRL - ENT Exam ENT Exam: Normal Oropharynx Additional comments: ON NASAL OXYGEN, 2L. - Neck Exam Neck Exam: Normal Inspection (BETTER AERATION BILATERALLY.) - Cardiovascular Exam Cardiovascular Exam: REGULAR RHYTHM, +S1, +S2 - GI/Abdominal Exam GI & Abdominal Exam: Soft, Hypoactive Bowel Sounds - Extremities Exam Extremities Exam: absent: Calf Tenderness, Pedal Edema - Neurological Exam Neurological Exam: Altered (DROWSY.) - Psychiatric Exam Psychiatric exam: Flat Affect - Skin Skin Exam: Dry, Warm Assessment and Plan (1) Altered mental status Status: Acute (2) Sepsis Status: Acute (3) UTI (urinary tract infection) Status: Acute (4) CHF (congestive heart failure) Status: Chronic (5) History of B-cell lymphoma Status: Chronic (6) Parkinson disease Status: Chronic - Assessment and Plan (Free Text) Assessment: Asssessment : S/P RESPIRATORY FAILURE / PNEUMONIA CHF WITH RIGHT-SIDED LARGE EFFUSION s/p RT.THORACENTESIS 12/20/16. S/P REPEAT THORACENTESIS 12/24/16 S/P GRAM-NEGATIVE SEPSIS +VE ESBL +VE E. COLI . source of sepsis most likely vs GI CANDIDURIA HISTORY OF B CELL- LYMPHOMA ( IN REMISSION ) PARKINSONISM. Plan : CONTINUE IV PRIMAXIN 500 MG EVERY 6 HOURLY .12/13/16. DECREASE DOSE TO 500 MG EVERY 12 HOURLY-DAY 12 X ONE WEEK MORE CASE DISCUSSED WITH STAFF /PULMONARY TEAM dIURESIS GENTLY, PATIENT'S BLOOD PRESSURE VERY LABILE KaND MAGNESIUM SUPPLEMENT fOLLOW-UP RENAL FUNCTIONS. DIET TOLERATED.
[2016-12-27] MEDS: Potassium Chloride 20 mEq ER Tab PO SCH (09:52)
[2016-12-27] MEDS: Pantoprazole 40 mg EC Tab PO SCH (09:52)
[2016-12-27] MEDS: Magnesium Oxide 400 mg Tab UD PO SCH (09:52)
[2016-12-27] MEDS: Imipenem/Cilastatin 500 MG in Dextrose 5% In Water 100 ML IVPB SCH ×2 (09:55→21:34)
--- NOTE | 2016-12-27 10:13 | CP.PCM.PN ---
<Aidee Dugan - Last Filed: 12/27/16 11:29> Subjective - Date & Time of Evaluation Date of Evaluation: 12/27/16 Time of Evaluation: 09:00 - Subjective Subjective: Pulmonology Note for Dr. Lyles's Service Patient seen and examined at bedside this morning. Patient is breathing better s /p 2nd thoracentesis with 500cc removed, but ROS unreliable. She was awake, alert. Full ROS not obtained due to patient's mental status. Objective - Vital Signs/Intake and Output Vital Signs (last 24 hours): Temp Pulse Resp BP Pulse Ox 98.1 F 111 H 20 95/69 L 99 12/27/16 08:26 12/27/16 08:26 12/27/16 08:26 12/27/16 09:54 12/27/16 08:26 Intake and Output: 12/27/16 12/27/16 06:59 18:59 Intake Total 350 Balance 350 - Medications Medications: Current Medications Carbidopa/Levodopa (Sinemet) 1 tab PO QID [facility] Last Admin: 12/27/16 09:52 Dose: 1 tab Docusate Sodium (Colace) 100 mg PO TID [facility] Last Admin: 12/27/16 09:54 Dose: 100 mg Entacapone (Comtan) 200 mg PO ACBD [facility] Last Admin: 12/27/16 08:30 Dose: 200 mg Furosemide (Lasix) 20 mg IVP DAILY [facility] Last Admin: 12/27/16 09:54 Dose: Not Given Heparin Sodium (Porcine) (Heparin) 5,000 units SC Q12H [facility] Last Admin: 12/27/16 06:52 Dose: 5,000 units Imipenem/Cilastatin Sodium 500 (mg/ Dextrose) 100 mls @ 100 mls/hr IVPB Q12H [facility] Last Admin: 12/27/16 09:55 Dose: 100 mls/hr Magnesium Oxide (Mag-Ox) 400 mg PO BID [facility] Last Admin: 12/27/16 09:52 Dose: 400 mg Metoprolol Tartrate (Lopressor) 12.5 mg PO BID [facility] Last Admin: 12/27/16 09:54 Dose: Not Given Pantoprazole Sodium (Protonix Ec Tab) 40 mg PO DAILY [facility] Last Admin: 12/27/16 09:52 Dose: 40 mg Polyethylene Glycol (Miralax) 17 gm PO Q8H PRN PRN Reason: Constipation Potassium Chloride (K-Dur 20 Meq Er Tab) 40 meq PO DAILY [facility] Last Admin: 12/27/16 09:52 Dose: 40 meq Spironolactone (Aldactone) 25 mg PO DAILY [facility] Last Admin: 12/27/16 09:54 Dose: Not Given - Labs Labs: 12/25/16 07:28 12/26/16 07:36 PT 16.7 SECONDS (9.7-12.2) H 12/11/16 13:34 INR 1.5 12/11/16 13:34 APTT 30 SECONDS (21-34) 12/11/16 13:34 - Constitutional Appears: No Acute Distress - Head Exam Head Exam: NORMAL INSPECTION, NORMOCEPHALIC - Eye Exam Eye Exam: EOMI, Normal appearance, PERRL Pupil Exam: NORMAL ACCOMODATION - ENT Exam ENT Exam: Mucous Membranes Dry - Respiratory Exam Respiratory Exam: Decreased Breath Sounds - Cardiovascular Exam Cardiovascular Exam: REGULAR RHYTHM, RRR - GI/Abdominal Exam GI & Abdominal Exam: Soft, Normal Bowel Sounds. absent: Distended, Tenderness - Extremities Exam Extremities Exam: Normal Inspection. absent: Pedal Edema, Tenderness - Neurological Exam Neurological Exam: Alert, Awake, Oriented x3 - Psychiatric Exam Psychiatric exam: Normal Mood - Skin Skin Exam: Dry, Intact, Normal Color, Warm Assessment and Plan - Assessment and Plan (Free Text) Plan: (1) Pleural effusion Assessment & Plan: S/P thoracentesis 12/26 -> 500 CC fluid removed from right lung Pleural effusion is returning and has been increasing. Patient has not been receiving CHF meds/diuretics due to bp in 90s systolic. Fluid gram stain negative from thoracentesis on 12/20. Cytology negative for malignant cells. Patient's mental status improving F/U CXR (2) Sepsis Assessment & Plan: Improved (3) Congestive cardiomyopathy Assessment & Plan: Metoprolol and Lasix being held due to lower BP. (4) Parkinson disease (5) History of B-cell lymphoma (6) Electrolyte abnormality (7) Ascities F/U CT AB and Pelvis DW Ritchie Rosales DO, PGY-1 <Yordan Lyles S - Last Filed: 12/27/16 16:37> Subjective - Date & Time of Evaluation Time of Evaluation: 10:30 Objective - Vital Signs/Intake and Output Vital Signs (last 24 hours): Temp Pulse Resp BP Pulse Ox 98.1 F 111 H 20 95/69 L 99 12/27/16 08:26 12/27/16 08:26 12/27/16 08:26 12/27/16 15:53 12/27/16 08:26 Intake and Output: 12/27/16 12/27/16 06:59 18:59 Intake Total 350 Balance 350 - Medications Medications: Current Medications Carbidopa/Levodopa (Sinemet) 1 tab PO QID [facility] Last Admin: 12/27/16 14:54 Dose: 1 tab Docusate Sodium (Colace) 100 mg PO TID [facility] Last Admin: 12/27/16 14:54 Dose: 100 mg Entacapone (Comtan) 200 mg PO ACBD [facility] Last Admin: 12/27/16 08:30 Dose: 200 mg Furosemide (Lasix) 20 mg IVP DAILY [facility] Last Admin: 12/27/16 09:54 Dose: Not Given Heparin Sodium (Porcine) (Heparin) 5,000 units SC Q12H [facility] Last Admin: 12/27/16 06:52 Dose: 5,000 units Imipenem/Cilastatin Sodium 500 (mg/ Dextrose) 100 mls @ 100 mls/hr IVPB Q12H [facility] Last Admin: 12/27/16 09:55 Dose: 100 mls/hr Metoprolol Tartrate (Lopressor) 12.5 mg PO BID [facility] Last Admin: 12/27/16 09:54 Dose: Not Given Pantoprazole Sodium (Protonix Ec Tab) 40 mg PO DAILY [facility] Last Admin: 12/27/16 09:52 Dose: 40 mg Polyethylene Glycol (Miralax) 17 gm PO Q8H PRN PRN Reason: Constipation Potassium Chloride (K-Dur 20 Meq Er Tab) 40 meq PO DAILY [facility] Last Admin: 12/27/16 09:52 Dose: 40 meq Spironolactone (Aldactone) 25 mg PO DAILY [facility] Last Admin: 12/27/16 09:54 Dose: Not Given - Labs Labs: 12/25/16 07:28 12/26/16 07:36 PT 16.7 SECONDS (9.7-12.2) H 12/11/16 13:34 INR 1.5 12/11/16 13:34 APTT 30 SECONDS (21-34) 12/11/16 13:34 Assessment and Plan (1) Sepsis Status: Acute (2) Parkinson disease Status: Chronic (3) Congestive cardiomyopathy Status: Chronic (4) History of B-cell lymphoma Status: Chronic Attending/Attestation - Attestation I have personally seen and examined this patient.: Yes I have fully participated in the care of the patient.: Yes I have reviewed all pertinent clinical information, including history, physical exam and plan: Yes Notes (Text): 12/27/16 16:37 patient seen and examined. Status post thoracentesis with less shortness of breath On antibiotics per ID Continue present treatment
[2016-12-27] MEDS ORDERED: Iohexol 240 (50 ml) PO PRN (10:24)
--- NOTE | 2016-12-27 11:11 | CP.PCM.PN ---
Subjective - Date & Time of Evaluation Date of Evaluation: 12/27/16 Time of Evaluation: 11:05 - Subjective Subjective: Patient is afebrile. Awake , but not too alert. eating a litlle bit better. Understands she has to, to get better. BP still in the 90's so metoprolol, lasix and spironolactone can not be given . Breathing easier. For repeat cxr and abdominal cat scan today. Objective - Vital Signs/Intake and Output Vital Signs (last 24 hours): Temp Pulse Resp BP Pulse Ox 98.1 F 111 H 20 95/69 L 99 12/27/16 08:26 12/27/16 08:26 12/27/16 08:26 12/27/16 09:54 12/27/16 08:26 Intake and Output: 12/27/16 12/27/16 06:59 18:59 Intake Total 350 Balance 350 - Medications Medications: Current Medications Carbidopa/Levodopa (Sinemet) 1 tab PO QID [facility] Last Admin: 12/27/16 09:52 Dose: 1 tab Docusate Sodium (Colace) 100 mg PO TID [facility] Last Admin: 12/27/16 09:54 Dose: 100 mg Entacapone (Comtan) 200 mg PO ACBD [facility] Last Admin: 12/27/16 08:30 Dose: 200 mg Furosemide (Lasix) 20 mg IVP DAILY [facility] Last Admin: 12/27/16 09:54 Dose: Not Given Heparin Sodium (Porcine) (Heparin) 5,000 units SC Q12H [facility] Last Admin: 12/27/16 06:52 Dose: 5,000 units Imipenem/Cilastatin Sodium 500 (mg/ Dextrose) 100 mls @ 100 mls/hr IVPB Q12H [facility] Last Admin: 12/27/16 09:55 Dose: 100 mls/hr Iohexol (Omnipaque 240 (50 Ml)) 50 ml PO ONCE PRN Stop: 12/27/16 11:59 Metoprolol Tartrate (Lopressor) 12.5 mg PO BID [facility] Last Admin: 12/27/16 09:54 Dose: Not Given Pantoprazole Sodium (Protonix Ec Tab) 40 mg PO DAILY [facility] Last Admin: 12/27/16 09:52 Dose: 40 mg Polyethylene Glycol (Miralax) 17 gm PO Q8H PRN PRN Reason: Constipation Potassium Chloride (K-Dur 20 Meq Er Tab) 40 meq PO DAILY [facility] Last Admin: 12/27/16 09:52 Dose: 40 meq Spironolactone (Aldactone) 25 mg PO DAILY [facility] Last Admin: 12/27/16 09:54 Dose: Not Given - Labs Labs: 12/25/16 07:28 12/26/16 07:36 PT 16.7 SECONDS (9.7-12.2) H 12/11/16 13:34 INR 1.5 12/11/16 13:34 APTT 30 SECONDS (21-34) 12/11/16 13:34 - Constitutional Appears: Chronically Ill - Head Exam Head Exam: ATRAUMATIC, NORMAL INSPECTION, NORMOCEPHALIC - Eye Exam Eye Exam: Normal appearance Pupil Exam: PERRL - ENT Exam ENT Exam: Mucous Membranes Dry, Normal External Ear Exam - Neck Exam Neck Exam: Full ROM, Normal Inspection - Respiratory Exam Respiratory Exam: Decreased Breath Sounds Additional comments: Moderate ronchi. No rales. - Cardiovascular Exam Cardiovascular Exam: Tachycardia, +S1, +S2 - GI/Abdominal Exam GI & Abdominal Exam: Soft - Rectal Exam Rectal Exam: Deferred - Back Exam Back Exam: NORMAL INSPECTION - Neurological Exam Neurological Exam: Altered, Awake - Psychiatric Exam Psychiatric exam: Normal Affect - Skin Skin Exam: Dry, Normal Color Assessment and Plan (1) Altered mental status Status: Acute (2) Sepsis Status: Acute (3) UTI (urinary tract infection) Status: Acute (4) History of B-cell lymphoma Status: Chronic (5) Parkinson disease Status: Chronic (6) CHF (congestive heart failure) Status: Chronic (7) Congestive cardiomyopathy Status: Chronic (8) Pleural effusion Status: Acute - Assessment and Plan (Free Text) Plan: Status----Acute Continue IV antibiotics. Lasix and spironolactone if BP is 100 and above. CXR and abdominal CAT SCAN today.
[2016-12-27] MEDS ORDERED: Iodixanol 320 MG/ML 100 ML BOTTLE IV ONE (14:41)
--- NOTE | 2016-12-27 14:52 | RAD ---
Chest x-ray single frontal view History: Pleural effusion. Comparison: 12/23/2016 Findings: Right chest wall port with tip extending to the cavoatrial junction. Moderate venous congestion with patchy airspace opacifications noted within the right mid to lower lung zone as well as the left lung base. Small bilateral pleural effusions. Cardiomegaly. Tortuous ectatic aorta with calcification at the aortic knob. Degenerative changes in the spine. Impression: Moderate venous congestion with patchy airspace opacifications noted within the right mid to lower lung zone as well as the left lung base. Small bilateral pleural effusions. Cardiomegaly.
--- NOTE | 2016-12-27 16:25 | CT ---
PROCEDURE: CT Abdomen and Pelvis with contrast HISTORY: Abdominal ascites COMPARISON: None. TECHNIQUE: Contrast dose: 100 cc Visipaque 320 Radiation dose: Total exam DLP = 789.06 mGy-cm. This CT exam was performed using one or more of the following dose reduction techniques: Automated exposure control, adjustment of the mA and/or kV according to patient size, and/or use of iterative reconstruction technique. FINDINGS: LOWER THORAX: Decrease in right pleural effusion, commensurate re-expansion right lung following thoracentesis performed December 26, 2016. By history approximately 500 mL was removed at the time of the thoracentesis. The degree to which to the inferior vena cava and hepatic veins opacify suggests a component of right heart failure. LIVER: Hepatic steatosis. No focal masses. No intrahepatic bile duct dilatation or perihepatic ascites. GALLBLADDER AND BILE DUCTS: Unremarkable. PANCREAS: Unremarkable. No gross lesion or ductal dilatation. SPLEEN: Unremarkable. ADRENALS: Unremarkable. No mass. KIDNEYS AND URETERS: Unremarkable. No hydronephrosis. No solid mass. VASCULATURE: Unremarkable. No aortic aneurysm. BOWEL: Fecal impaction, constipation without mechanical obstruction. APPENDIX: Normal appendix. PERITONEUM: Low volume primarily pelvic ascites, trace perihepatic and subhepatic ascites, fluid tracks along the pericolic gutters bilaterally. LYMPH NODES: Unremarkable. No enlarged lymph nodes. BLADDER: Unremarkable. REPRODUCTIVE: Unremarkable. BONES: No acute fracture. Findings related to kyphoplasty L4 vertebral body. OTHER FINDINGS: Mild and symmetrical anasarca. None. IMPRESSION: Small volume abdominal pelvic ascites. Mild mild-moderate anasarca, findings suggestive of right heart failure. Otherwise unremarkable examination.
--- NOTE | 2016-12-27 22:36 | CP.PCM.PN ---
Subjective - Date & Time of Evaluation Date of Evaluation: 12/27/16 Time of Evaluation: 22:36 - Subjective Subjective: afebrile BP 95/69, TACHYCARDIC HEART RATE 111/M. pULSE OX 99%. PATIENT APPEARS COMFORTABLE/ WEAK. NIECE BY HER SIDE. PATIENT WENT FOR CT OF THE ABDOMEN AND PELVIS AND CHEST X-RAY TODAY labs;reviewed Repeat urine culture negative growth. ROS ;NA Objective - Vital Signs/Intake and Output Vital Signs (last 24 hours): Temp Pulse Resp BP Pulse Ox 97.7 F 128 H 20 102/67 100 12/27/16 16:00 12/27/16 16:00 12/27/16 16:00 12/27/16 16:00 12/27/16 16:00 Intake and Output: 12/27/16 12/28/16 18:59 06:59 Intake Total 1100 Balance 1100 - Medications Medications: Current Medications Carbidopa/Levodopa (Sinemet) 1 tab PO QID [facility] Last Admin: 12/27/16 21:32 Dose: 1 tab Docusate Sodium (Colace) 100 mg PO TID [facility] Last Admin: 12/27/16 18:26 Dose: 100 mg Entacapone (Comtan) 200 mg PO ACBD [facility] Last Admin: 12/27/16 18:25 Dose: 200 mg Furosemide (Lasix) 20 mg IVP DAILY [facility] Last Admin: 12/27/16 09:54 Dose: Not Given Heparin Sodium (Porcine) (Heparin) 5,000 units SC Q12H [facility] Last Admin: 12/27/16 18:27 Dose: 5,000 units Imipenem/Cilastatin Sodium 500 (mg/ Dextrose) 100 mls @ 100 mls/hr IVPB Q12H [facility] Last Admin: 12/27/16 21:34 Dose: 100 mls/hr Metoprolol Tartrate (Lopressor) 12.5 mg PO BID [facility] Last Admin: 12/27/16 18:28 Dose: Not Given Pantoprazole Sodium (Protonix Ec Tab) 40 mg PO DAILY [facility] Last Admin: 12/27/16 09:52 Dose: 40 mg Polyethylene Glycol (Miralax) 17 gm PO Q8H PRN PRN Reason: Constipation Potassium Chloride (K-Dur 20 Meq Er Tab) 40 meq PO DAILY [facility] Last Admin: 12/27/16 09:52 Dose: 40 meq Spironolactone (Aldactone) 25 mg PO DAILY [facility] Last Admin: 12/27/16 09:54 Dose: Not Given - Labs Labs: 12/25/16 07:28 12/26/16 07:36 PT 16.7 SECONDS (9.7-12.2) H 12/11/16 13:34 INR 1.5 12/11/16 13:34 APTT 30 SECONDS (21-34) 12/11/16 13:34 - Constitutional Appears: No Acute Distress, Cachectic, Chronically Ill - Eye Exam Eye Exam: PERRL - ENT Exam ENT Exam: Normal Oropharynx (FEW BASILAR RHONCHI.) - Cardiovascular Exam Cardiovascular Exam: Tachycardia, REGULAR RHYTHM, +S1, +S2 - GI/Abdominal Exam GI & Abdominal Exam: Soft, Normal Bowel Sounds. absent: Tenderness - Extremities Exam Extremities Exam: Pedal Edema. absent: Calf Tenderness - Neurological Exam Neurological Exam: Awake - Psychiatric Exam Psychiatric exam: Flat Affect - Skin Skin Exam: Dry, Warm Assessment and Plan (1) Sepsis Status: Acute (2) Pneumonia Status: Acute (3) CHF (congestive heart failure) Status: Chronic (4) Altered mental status Status: Acute (5) UTI (urinary tract infection) Status: Acute (6) History of B-cell lymphoma Status: Chronic (7) Parkinson disease Status: Chronic - Assessment and Plan (Free Text) Assessment: Asssessment : S/P RESPIRATORY FAILURE / PNEUMONIA CHF WITH RIGHT-SIDED LARGE EFFUSION s/p RT.THORACENTESIS 12/20/16. S/P REPEAT THORACENTESIS 12/24/16 S/P GRAM-NEGATIVE SEPSIS +VE ESBL +VE E. COLI . source of sepsis most likely vs GI s/p CANDIDURIA HISTORY OF B CELL- LYMPHOMA ( IN REMISSION ) PARKINSONISM. Plan : CONTINUE IV PRIMAXIN 500 MG EVERY 6 HOURLY .12/13/16. DECREASE DOSE TO 500 MG EVERY 12 HOURLY -day14 CASE DISCUSSED WITH STAFF /PULMONARY TEAM. Will review CT of the abdomen and pelvis and chest x-ray.
--- NOTE | 2016-12-28 09:54 | CP.PCM.PN ---
Subjective - Date & Time of Evaluation Date of Evaluation: 12/28/16 Time of Evaluation: 08:00 - Subjective Subjective: Pulmonology Note for Dr. Lyles's Service Patient seen and examined at bedside this morning. Patient is breathing better s /p 2nd thoracentesis with 500cc removed, but ROS unreliable. She was awake, alert. Full ROS not obtained due to patient's mental status. Objective - Vital Signs/Intake and Output Vital Signs (last 24 hours): Temp Pulse Resp BP Pulse Ox 98.1 F 85 20 95/62 L 98 12/28/16 08:23 12/28/16 08:23 12/28/16 08:23 12/28/16 08:23 12/28/16 08:23 Intake and Output: 12/28/16 12/28/16 06:59 18:59 Intake Total 600 Balance 600 - Medications Medications: Current Medications Carbidopa/Levodopa (Sinemet) 1 tab PO QID [facility] Last Admin: 12/27/16 21:32 Dose: 1 tab Docusate Sodium (Colace) 100 mg PO TID [facility] Last Admin: 12/27/16 18:26 Dose: 100 mg Entacapone (Comtan) 200 mg PO ACBD [facility] Last Admin: 12/28/16 08:15 Dose: 200 mg Furosemide (Lasix) 20 mg IVP DAILY [facility] Last Admin: 12/27/16 09:54 Dose: Not Given Heparin Sodium (Porcine) (Heparin) 5,000 units SC Q12H [facility] Last Admin: 12/28/16 08:13 Dose: 5,000 units Imipenem/Cilastatin Sodium 500 (mg/ Dextrose) 100 mls @ 100 mls/hr IVPB Q12H [facility] Last Admin: 12/27/16 21:34 Dose: 100 mls/hr Metoprolol Tartrate (Lopressor) 12.5 mg PO BID [facility] Last Admin: 12/27/16 18:28 Dose: Not Given Pantoprazole Sodium (Protonix Ec Tab) 40 mg PO DAILY [facility] Last Admin: 12/27/16 09:52 Dose: 40 mg Polyethylene Glycol (Miralax) 17 gm PO Q8H PRN PRN Reason: Constipation Potassium Chloride (K-Dur 20 Meq Er Tab) 40 meq PO DAILY [facility] Last Admin: 12/27/16 09:52 Dose: 40 meq Spironolactone (Aldactone) 25 mg PO DAILY [facility] Last Admin: 12/27/16 09:54 Dose: Not Given - Labs Labs: 12/25/16 07:28 12/26/16 07:36 PT 16.7 SECONDS (9.7-12.2) H 12/11/16 13:34 INR 1.5 12/11/16 13:34 APTT 30 SECONDS (21-34) 12/11/16 13:34 - Constitutional Appears: Non-toxic, No Acute Distress, Chronically Ill - Head Exam Head Exam: ATRAUMATIC - ENT Exam ENT Exam: Mucous Membranes Moist - Respiratory Exam Respiratory Exam: Decreased Breath Sounds, Rales, NORMAL BREATHING PATTERN. absent: Accessory Muscle Use, Clear to Ausculation Bilateral, Respiratory Distress - Cardiovascular Exam Cardiovascular Exam: REGULAR RHYTHM, +S1, +S2 - GI/Abdominal Exam GI & Abdominal Exam: Soft, Normal Bowel Sounds. absent: Distended, Firm, Guarding, Tenderness - Neurological Exam Neurological Exam: Alert, Awake - Psychiatric Exam Psychiatric exam: Normal Affect, Normal Mood - Skin Skin Exam: Dry, Intact, Normal Color, Warm Assessment and Plan (1) Pleural effusion Assessment & Plan: S/P thoracentesis 12/26 -> 500 CC fluid removed from right lung Pleural effusion is returning and has been increasing. Patient has not been receiving CHF meds/diuretics due to bp in 90s systolic. Fluid gram stain negative from thoracentesis on 12/20. Cytology negative for malignant cells. Patient's mental status improving Status: Acute (2) Sepsis Assessment & Plan: Improved Status: Acute (3) Congestive cardiomyopathy Assessment & Plan: Metoprolol and Lasix being held due to lower BP. Status: Chronic (4) Parkinson disease Status: Chronic (5) History of B-cell lymphoma Status: Chronic (6) Electrolyte abnormality Status: Acute (7) Ascites Assessment & Plan: mild amount seen on CT scan Status: Acute
--- NOTE | 2016-12-28 11:01 | CP.PCM.DIS ---
Provider - Provider Date of Admission: 12/11/16 15:15 Attending physician: Diana Hawkins MD Time Spent in preparation of Discharge (in minutes): 60 Diagnosis - Discharge Diagnosis (1) Altered mental status Status: Acute (2) Sepsis Status: Acute (3) UTI (urinary tract infection) Status: Acute Priority: High (4) History of B-cell lymphoma Status: Chronic (5) Parkinson disease Status: Chronic (6) CHF (congestive heart failure) Status: Chronic (7) Congestive cardiomyopathy Status: Chronic (8) Pleural effusion Status: Acute (9) VRE infection (vancomycin resistant Enterococcus) Status: Acute (10) Infection due to ESBL-producing Escherichia coli Status: Acute Hospital Course - Lab Results Lab Results: Micro Results 12/25/16 00:07 Urine,Clean Catch Urine Culture - Final No Growth (<1,000 CFU/ML) 12/20/16 09:51 Pleural Fluid Gram Stain - Final 12/20/16 09:51 Pleural Fluid Anaerobic Culture - Final No growth. 12/20/16 09:51 Pleural Fluid Body Fluid Culture - Final No growth. 12/22/16 Unknown Naris MRSA Culture - Final MRSA NOT DETECTED 12/18/16 05:40 Blood-Thru Central Line Blood Culture - Final NO GROWTH AFTER 5 DAYS 12/18/16 05:40 Blood-Thru Central Line Gram Stain - Final TEST NOT PERFORMED 12/18/16 07:05 Blood-Thru Central Line Blood Culture - Final NO GROWTH AFTER 5 DAYS 12/18/16 07:05 Blood-Thru Central Line Gram Stain - Final TEST NOT PERFORMED 12/20/16 09:51 Pleural Cavity Fungal Culture - Preliminary 12/19/16 16:40 Naris MRSA Culture (Admit) - Final MRSA NOT DETECTED 12/18/16 07:47 Urine,Rodriguez Urine Culture - Final Yeast Species 12/11/16 13:46 Blood-Venous Blood Culture - Final Escherichia Coli 12/11/16 13:46 Blood-Venous Gram Stain - Final 12/11/16 01:30 Blood-Venous Blood Culture - Final Escherichia Coli 12/11/16 01:30 Blood-Venous Gram Stain - Final 12/11/16 13:42 Urine,Clean Catch Urine Culture - Final Escherichia Coli Most Recent Lab Values WBC 3.0 K/uL (4.8-10.8) L 12/25/16 07:28 RBC 3.80 Mil/uL (3.80-5.20) 12/25/16 07:28 Hgb 12.1 g/dL (11.0-16.0) 12/25/16 07: Hct 36.7 % (34.0-47.0) 12/25/16 07:28 MCV 96.6 fL (81.0-99.0) 12/25/16 07: MCH 31.8 pg (27.0-31.0) H 12/25/16 07:28 MCHC 32.9 g/dL (33.0-37.0) L 12/25/16 07: RDW 23.0 % (11.5-14.5) H 12/25/16 07:28 Plt Count 161 K/uL (130-400) 12/25/16 07:28 MPV 9.9 fL (7.2-11.7) 12/25/16 07:28 Neut % (Auto) 61.8 % (50.0-75.0) 12/25/16 07:28 Lymph % (Auto) 25.0 % (20.0-40.0) 12/25/16 07:28 Real % (Auto) 12.2 % (0.0-10.0) H 12/25/16 07:28 Eos % (Auto) 0.5 % (0.0-4.0) 12/25/16 07:28 Baso % (Auto) 0.5 % (0.0-2.0) 12/25/16 07:28 Neut # 1.9 K/uL (1.8-7.0) 12/25/16 07:28 Lymph # 0.8 K/uL (1.0-4.3) L 12/25/16 07:28 Real # 0.4 K/uL (0.0-0.8) 12/25/16 07:28 Eos # 0.0 K/uL (0.0-0.7) 12/25/16 07:28 Baso # 0.0 K/uL (0.0-0.2) 12/25/16 07:28 Neutrophils % (Manual) 73 % (50-75) 12/13/16 06:45 Band Neutrophils % 9 % (0-2) H 12/13/16 06:45 Lymphocytes % (Manual) 9 % (20-40) L 12/13/16 06:45 Reactive Lymphs % 2 % (0-0) H 12/12/16 07:59 Monocytes % (Manual) 9 % (0-10) 12/13/16 06:45 Nucleated RBC % 1 % (0-0) H 12/11/16 13:34 Platelet Estimate Decreased (NORMAL) L 12/13/16 06:45 Hypochromasia (manual) Slight 12/13/16 06:45 Poikilocytosis (manual Slight 12/13/16 06:45 Anisocytosis (manual) Slight 12/13/16 06:45 Target Cells Slight 12/13/16 06:45 Ovalocytes Slight 12/13/16 06:45 [place] Cells Moderate 12/13/16 06:45 Acanthocytes (Spur) Slight 12/13/16 06:45 PT 16.7 SECONDS (9.7-12.2) H 12/11/16 13:34 INR 1.5 12/11/16 13:34 APTT 30 SECONDS (21-34) 12/11/16 13:34 Puncture Site Rr 12/20/16 12:51 pCO2 36 mm/Hg (35-45) 12/20/16 12:51 pO2 123 mm/Hg (80-100) H 12/20/16 12:51 HCO3 22.3 mmol/L (21-28) 12/20/16 12:51 ABG pH 7.38 (7.35-7.45) 12/20/16 12:51 ABG Total CO2 22.4 mmol/L (22-28) 12/20/16 12:51 ABG O2 Saturation 99.2 % (95-98) H 12/20/16 12:51 ABG Base Excess -3.3 mmol/L (-2.0-3.0) L 12/20/16 12:51 ABG Hemoglobin 12.4 g/dL (11.7-17.4) 12/20/16 12:51 ABG Carboxyhemoglobin 2.0 % (0.5-1.5) H 12/20/16 12:51 POC ABG HHb (Measured) 0.8 % (0.0-5.0) 12/20/16 12:51 ABG Methemoglobin 0.7 % (0.0-3.0) 12/20/16 12:51 Elton Test Pos 12/20/16 12:51 ABG Potassium 3.8 mmol/L (3.6-5.2) 12/15/16 16:28 VBG pH 7.38 (7.32-7.43) 12/11/16 16:58 VBG pCO2 35 mmHg (40-60) L 12/11/16 16:58 VBG HCO3 20.3 mmol/L 12/11/16 16:58 VBG Total CO2 21.8 mmol/L (22-28) L 12/11/16 16:58 VBG O2 Sat (Calc) 33.5 % (40-65) L 12/11/16 16:58 VBG Base Excess -3.8 mmol/L (0.0-2.0) L 12/11/16 16:58 VBG Potassium 5.0 mmol/L (3.6-5.2) 12/11/16 16:58 A-a O2 Difference 46.0 mm/Hg 12/20/16 12:51 Respiratory Index 0.4 12/20/16 12:51 Hgb O2 Saturation 96.5 % (95.0-98.0) 12/20/16 12:51 Sodium 140.0 mmol/l (132-148) 12/15/16 16:28 Chloride 117.0 mmol/L (98-107) H 12/15/16 16:28 Glucose 111 mg/dl (65-105) H 12/15/16 16:28 Lactate 2.3 mmol/L (0.7-2.1) H 12/15/16 16:28 Liter Flow 3.0 12/20/16 12:51 FiO2 30.0 % 12/20/16 12:51 Sodium 137 mmol/L (132-148) 12/26/16 07:36 Potassium 3.6 mmol/L (3.6-5.2) 12/26/16 07:36 Chloride 105 mmol/L (98-107) 12/26/16 07:36 Carbon Dioxide 23 mmol/L (22-30) 12/26/16 07:36 Anion Gap 12 (10-20) 12/26/16 07:36 BUN 18 mg/dL (7-17) H 12/26/16 07:36 Creatinine 0.6 mg/dL (0.7-1.2) L 12/26/16 07:36 Est GFR ( Amer) > 60 12/26/16 07:36 Est GFR (Non-Af Amer) > 60 12/26/16 07:36 POC Glucose (mg/dL) 111 mg/dL (65-110) H 12/26/16 16:42 Random Glucose 64 mg/dL (65-105) L 12/26/16 07:36 Lactic Acid 1.5 mmol/L (0.7-2.1) 12/11/16 19:29 Calcium 8.3 mg/dl (8.6-10.4) L 12/26/16 07:36 Phosphorus 3.1 mg/dL (2.5-4.5) 12/22/16 06:27 Magnesium 1.8 mg/dL (1.6-2.3) 12/26/16 07:36 Total Bilirubin 2.0 mg/dL (0.2-1.3) H 12/25/16 07:28 Direct Bilirubin 1.3 mg/dL (0.0-0.4) H 12/25/16 07:28 AST 24 U/L (14-36) 12/25/16 07:28 ALT 25 U/L (9-52) 12/25/16 07:28 Alkaline Phosphatase 96 U/L (38-126) 12/25/16 07:28 Total Creatine Kinase 73 U/L (30-135) 12/11/16 13:34 CK-MB (Mass) 0.63 ng/mL (0.0-3.38) 12/11/16 13:34 Troponin I 0.0490 ng/mL (0.00-0.120) 12/11/16 13:34 NT-Pro-B Natriuret Pep 27799 pg/mL (0-900) H 12/11/16 13:34 Total Protein 4.3 g/dL (6.3-8.3) L 12/25/16 07:28 Albumin 2.5 g/dL (3.5-5.0) L 12/25/16 07:28 Globulin 1.8 gm/dL (2.2-3.9) L 12/25/16 07:28 Albumin/Globulin Ratio 1.4 (1.0-2.1) 12/25/16 07:28 Lipase 18 U/L (23-300) L 12/11/16 13:34 Arterial Blood Potassium 3.8 mmol/L (3.6-5.2) 12/15/16 16:28 Venous Blood Potassium 5.0 mmol/L (3.6-5.2) 12/11/16 16:58 Urine Color [place] (YELLOW) 12/25/16 00:32 Urine Clarity Hazy (Clear) 12/25/16 00:32 Urine pH 6.0 (5.0-8.0) 12/25/16 00:32 Ur Specific [place] 1.016 (1.003-1.030) 12/25/16 00:32 Urine Protein Negative mg/dL (NEGATIVE) 12/25/16 00:32 Urine Glucose (UA) 1+ mg/dL (Normal) 12/25/16 00:32 Urine Ketones Trace mg/dL (NEGATIVE) 12/25/16 00:32 Urine Blood Negative (NEGATIVE) 12/25/16 00:32 Urine Nitrate Negative (NEGATIVE) 12/25/16 00:32 Urine Bilirubin Negative (NEGATIVE) 12/25/16 00:32 Urine Urobilinogen 4.0 mg/dL (0.2-1.0) H 12/25/16 00:32 Ur Leukocyte Esterase Trace Martine/uL (Negative) 12/25/16 00:32 Urine WBC (Auto) 5 /hpf (0-5) 12/25/16 00:32 Urine RBC (Auto) 1 /hpf (0-3) 12/25/16 00:32 Urine WBC Clumps (Auto) Many /hpf (NONE) H 12/11/16 13:41 Ur Squamous Epith Cells 35 /hpf (0-5) H 12/25/16 00:32 Urine Bacteria Rare (<OCC) 12/18/16 12:44 Hyaline Casts >20 /lpf (0-2) H 12/18/16 12:44 Urine Yeast (Budding) Many /hpf (NEGATIVE) H 12/18/16 12:44 Fluid Source Pleural/thoracentesi 12/20/16 09:51 Fluid Appearance Sl cloudy (CLEAR) 12/20/16 09:51 Fluid WBC 522.0 /mm3 (0.0-300.0) H 12/20/16 09:51 Fluid RBC 324.0 /mm3 (0.0-0.0) H 12/20/16 09:51 Fluid Tot Cell Count 100 (0-0) H 12/20/16 09:51 Fluid Neutrophils 92.0 % (0-0) H 12/20/16 09:51 Fluid Lymphocytes 7.0 % (0-0) H 12/20/16 09:51 Fld Monocyte/Macrophag 1 % (0-0) H 12/20/16 09:51 Fluid Comment 12/20/16 09:51 Pleural Total Protein <3.0 g/dL 12/20/16 09:51 Pleural LDH 77 U/L 12/20/16 09:51 Random Vancomycin 8.16 ug/mL 12/12/16 07:59 - Hospital Course Hospital Course: Admitted this 66 years olfd female because of altered mentation and not eating X 3 days. Patient was hospitalized here for non ischemic carmyopathy and congestive heart failure, diffuse large cell lymphoma, and parkinsons disease. Unfortunately her BP had been below 100 systolic so lasix and metoprolol could not be given. This time she came into the hospital because of urosepsis with altered mental status. Blood cultures and urine cultures came back positive for E. Coli, VRE , and EBSL. Due to her severe right sided heart failure she developed a resp[iratory failre and developed a massive left pleural effusion. Initially 1000 cc was 9obtained and a second tap yielded 500 cc of pleral flud. Cell block was negatuve for malignancy, and negative for infection. Patient did well after this. Respiratory difficulty subsisded, she was afebrile. and discharged to the subacute rehab facility. patient had a very poor appetite but hopefully she will regain her appetite when she is in a different environment. IV Primaxin has to be continue for anothe 4 days. She is to continue Lsix, Metopolol, and spironolactone if her BP is 100 and above. She is to continue Comtan and Sinemet. - Date & Time of H&P Date of H&P: 12/28/16 Time of H&P: 10:55 Discharge Exam - Head Exam Head Exam: ATRAUMATIC, NORMAL INSPECTION - Eye Exam Eye Exam: Normal appearance Pupil Exam: PERRL - ENT Exam ENT Exam: Normal External Ear Exam - Neck Exam Neck exam: Full Rom, Normal Inspection - Respiratory Exam Respiratory Exam: Clear to PA & Lateral, NORMAL BREATHING PATTERN - Cardiovascular Exam Cardiovascular Exam: Tachycardia, +S1, +S2 - GI/Abdominal Exam GI & Abdominal Exam: Normal Bowel Sounds - Rectal Exam Rectal Exam: Deferred - Back Exam Back exam: FULL ROM - Neurological Exam Neurological exam: Altered - Psychiatric Exam Psychiatric exam: Depressed - Skin Skin Exam: Dry, Intact, Warm Discharge Plan - Follow Up Plan Condition: IMPROVED Disposition: REHAB FACILITY/REHAB UNIT Patient education suggested?: No
[2016-12-28] MEDS: Imipenem/Cilastatin 500 MG in Dextrose 5% In Water 100 ML IVPB SCH ×2 (11:29→22:05)
[2016-12-28] MEDS: Pantoprazole 40 mg EC Tab PO SCH (11:29)
--- NOTE | 2016-12-28 12:40 | PCM.HF ---
Heart Failure Core Measure - Heart Failure Ejection Fraction: Less Than 40 % (EF 25-30%) JOSIANE Inhibitor Prescribed: No Contraindication/Reason for not providing: low BP Beta-Angel Prescribed: Metoprolol Succinate Angiotensin II Receptor Angel Prescribed: No Contraindication/Reason for not providing: low BP AnticoagulationTherapy for Atrial Fibrillation/Atrialflutter: No Contraindication/Reason for not providing: No afib Aldosterone Antagonist Prescribed: Yes Hydralazine Nitrate Prescribed: No Contraindication/Reason for not providing: low BP Implantable Cardioverter Defibrillator Therapy: No Contraindication/Reason for not providing: will f/u with air pollution inspector Cardiac Resynchronization Therapy Prescribed: No Contraindication/Reason for not providing: not indicated
[2016-12-28] MEDS: Potassium Chloride 20 mEq/15 ml LIQ UD PO SCH (16:27)
--- NOTE | 2016-12-28 23:24 | CP.PCM.PN ---
Subjective - Date & Time of Evaluation Date of Evaluation: 12/28/16 Time of Evaluation: 16:30 - Subjective Subjective: patient seen this afternoon Afebrile BP 95/65, NOT DYSPNEIC AT PRESENT PATIENT APPEARS COMFORTABLE AFTER 2ND THORACENTESIS BUT WEAK. APPETITE STILL POOR. CT OF THE ABDOMEN AND PELVIS; WITH BY MOUTH AND iv CONTRAST NOTED SMALL PELVIC ASCITES WITH MILD TO MODERATE ANASARCA SECONDARY TO HER RIGHT HEART FAILURE . No enlarged lymph nodes. ( see full report ) CHEST X-RAY 12/27/16 NOTED MILD VENOUS CONGESTION WITH PATCHY OPACIFICATION WITHIN RML/RLL/AND LEFT LUNG. PATIENT FOR SUBACUTE REHABILITATION TODAY BUT CANCELED PATIENT NOT EATING WELL AND VERY WEAK. Objective - Vital Signs/Intake and Output Vital Signs (last 24 hours): Temp Pulse Resp BP Pulse Ox 98.2 F 118 H 20 91/57 L 98 12/28/16 16:00 12/28/16 16:00 12/28/16 16:00 12/28/16 16:00 12/28/16 16:00 Intake and Output: 12/28/16 12/29/16 18:59 06:59 Intake Total 280 Balance 280 - Medications Medications: Current Medications Carbidopa/Levodopa (Sinemet) 1 tab PO QID [facility] Last Admin: 12/28/16 22:05 Dose: 1 tab Docusate Sodium (Colace) 100 mg PO TID [facility] Last Admin: 12/28/16 18:14 Dose: Not Given Entacapone (Comtan) 200 mg PO ACBD [facility] Last Admin: 12/28/16 16:44 Dose: 200 mg Furosemide (Lasix) 20 mg IVP DAILY [facility] Last Admin: 12/28/16 11:30 Dose: Not Given Imipenem/Cilastatin Sodium 500 (mg/ Dextrose) 100 mls @ 100 mls/hr IVPB Q12H [facility] Last Admin: 12/28/16 22:05 Dose: 100 mls/hr Metoprolol Tartrate (Lopressor) 12.5 mg PO BID [facility] Last Admin: 12/28/16 17:57 Dose: Not Given Pantoprazole Sodium (Protonix Ec Tab) 40 mg PO DAILY [facility] Last Admin: 12/28/16 11:29 Dose: 40 mg Polyethylene Glycol (Miralax) 17 gm PO Q8H PRN PRN Reason: Constipation Potassium Chloride (Potassium Chloride Oral Soln) 40 meq PO DAILY [facility] Last Admin: 12/28/16 16:27 Dose: 40 meq Spironolactone (Aldactone) 25 mg PO DAILY [facility] Last Admin: 12/28/16 11:28 Dose: Not Given - Labs Labs: 12/25/16 07:28 12/26/16 07:36 PT 16.7 SECONDS (9.7-12.2) H 12/11/16 13:34 INR 1.5 12/11/16 13:34 APTT 30 SECONDS (21-34) 12/11/16 13:34 - Constitutional Appears: No Acute Distress, Cachectic, Chronically Ill - Head Exam Head Exam: NORMAL INSPECTION - Eye Exam Eye Exam: PERRL - ENT Exam ENT Exam: Mucous Membranes Dry - Neck Exam Neck Exam: Normal Inspection - Respiratory Exam Respiratory Exam: Decreased Breath Sounds - Cardiovascular Exam Cardiovascular Exam: Tachycardia, REGULAR RHYTHM, +S1, +S2 - GI/Abdominal Exam GI & Abdominal Exam: Soft, Normal Bowel Sounds - Extremities Exam Extremities Exam: absent: Calf Tenderness, Pedal Edema - Neurological Exam Neurological Exam: Altered, Awake - Psychiatric Exam Psychiatric exam: Flat Affect - Skin Skin Exam: Dry, Warm Assessment and Plan (1) Altered mental status Status: Acute (2) Sepsis Status: Acute (3) UTI (urinary tract infection) Status: Acute (4) CHF (congestive heart failure) Status: Chronic (5) History of B-cell lymphoma Status: Chronic (6) Parkinson disease Status: Chronic - Assessment and Plan (Free Text) Assessment: Asssessment : S/P RESPIRATORY FAILURE / PNEUMONIA CHF WITH RIGHT-SIDED LARGE EFFUSION s/p RT.THORACENTESIS 12/20/16. S/P REPEAT THORACENTESIS 12/24/16 S/P GRAM-NEGATIVE SEPSIS +VE ESBL +VE E. COLI . source of sepsis most likely vs GI s/p CANDIDURIA HISTORY OF B CELL- LYMPHOMA ( IN REMISSION ) PARKINSONISM. Plan : CONTINUE IV PRIMAXIN 500 MG EVERY 6 HOURLY .12/13/16. DECREASE DOSE TO 500 MG EVERY 12 HOURLY -day16 for 5 more days. ( total of 3 weeks ) PULMONARY TOILET. ? PEG FOR FEEDINGS. PER CONSULTANTS.
--- NOTE | 2016-12-29 07:49 | CP.PCM.PN ---
Subjective - Date & Time of Evaluation Date of Evaluation: 12/29/16 Time of Evaluation: 07:40 - Subjective Subjective: patient still is not eating. Sup[posed to be discharged howevr with her not eating the family finally consented to have a feeding tube pout in for she will just be readmitted if she gets dehydrated. So a GOI consult was put in to Dr. Anguiano for a PEG. Objective - Vital Signs/Intake and Output Vital Signs (last 24 hours): Temp Pulse Resp BP Pulse Ox 98.3 F 116 H 20 110/77 98 12/29/16 00:00 12/29/16 00:00 12/29/16 00:00 12/29/16 00:00 12/29/16 00:00 Intake and Output: 12/29/16 12/29/16 06:59 18:59 Intake Total 480 Output Total 1 Balance 479 - Medications Medications: Current Medications Carbidopa/Levodopa (Sinemet) 1 tab PO QID [facility] Last Admin: 12/28/16 22:05 Dose: 1 tab Docusate Sodium (Colace) 100 mg PO TID [facility] Last Admin: 12/28/16 18:14 Dose: Not Given Entacapone (Comtan) 200 mg PO ACBD [facility] Last Admin: 12/28/16 16:44 Dose: 200 mg Furosemide (Lasix) 20 mg IVP DAILY [facility] Last Admin: 12/28/16 11:30 Dose: Not Given Imipenem/Cilastatin Sodium 500 (mg/ Dextrose) 100 mls @ 100 mls/hr IVPB Q12H [facility] Last Admin: 12/28/16 22:05 Dose: 100 mls/hr Metoprolol Tartrate (Lopressor) 12.5 mg PO BID [facility] Last Admin: 12/28/16 17:57 Dose: Not Given Pantoprazole Sodium (Protonix Ec Tab) 40 mg PO DAILY [facility] Last Admin: 12/28/16 11:29 Dose: 40 mg Polyethylene Glycol (Miralax) 17 gm PO Q8H PRN PRN Reason: Constipation Potassium Chloride (Potassium Chloride Oral Soln) 40 meq PO DAILY [facility] Last Admin: 12/28/16 16:27 Dose: 40 meq Spironolactone (Aldactone) 25 mg PO DAILY [facility] Last Admin: 12/28/16 11:28 Dose: Not Given - Labs Labs: 12/25/16 07:28 12/26/16 07:36 PT 16.7 SECONDS (9.7-12.2) H 12/11/16 13:34 INR 1.5 12/11/16 13:34 APTT 30 SECONDS (21-34) 12/11/16 13:34 - Constitutional Appears: No Acute Distress, Chronically Ill - Head Exam Head Exam: ATRAUMATIC, NORMAL INSPECTION - Eye Exam Eye Exam: Normal appearance Pupil Exam: PERRL - ENT Exam ENT Exam: Mucous Membranes Dry - Neck Exam Neck Exam: Full ROM - Respiratory Exam Respiratory Exam: NORMAL BREATHING PATTERN - Cardiovascular Exam Cardiovascular Exam: Tachycardia, +S1, +S2 - GI/Abdominal Exam GI & Abdominal Exam: Normal Bowel Sounds - Rectal Exam Rectal Exam: Deferred - Extremities Exam Extremities Exam: Full ROM - Back Exam Back Exam: NORMAL INSPECTION - Neurological Exam Neurological Exam: Altered, Awake - Psychiatric Exam Psychiatric exam: Depressed - Skin Skin Exam: Dry, Intact, Normal Color, Warm Assessment and Plan (1) Altered mental status Status: Acute (2) Sepsis Status: Acute (3) UTI (urinary tract infection) Status: Acute (4) History of B-cell lymphoma Status: Chronic (5) Parkinson disease Status: Chronic (6) CHF (congestive heart failure) Status: Chronic (7) Congestive cardiomyopathy Status: Chronic (8) Pleural effusion Status: Acute (9) VRE infection (vancomycin resistant Enterococcus) Status: Acute (10) Infection due to ESBL-producing Escherichia coli Status: Acute - Assessment and Plan (Free Text) Plan: Status---Acute Plan: Continue IV maxipine For PEG insertion.
--- NOTE | 2016-12-29 09:34 | CP.PCM.CON ---
History of Present Illness - History of Present Illness History of Present Illness: COvering DR Ballesteros ASked to see pt for dysphagia h/o AMS, sepsis, UTI, lymphoma, parkensons, CHF Pt not eating well on her own. Review of Systems - Constitutional Constitutional: Anorexia, Fatigue. absent: Fever - Cardiovascular Cardiovascular: absent: Chest Pain, Dyspnea - Respiratory Respiratory: absent: Dyspnea, Hemoptysis - Gastrointestinal Gastrointestinal: absent: Abdominal Pain, Constipation, Diarrhea, Dyspepsia, Dysphagia, Hematemesis, Hematochezia, Melena - Genitourinary Genitourinary: absent: Hematuria - Musculoskeletal Musculoskeletal: absent: Muscle Cramps - Integumentary Integumentary: absent: Jaundice - Neurological Neurological: absent: Convulsions Past Patient History - Tetanus Immunizations Tetanus Immunization: Unknown - Past Medical History & Family History Past Medical History?: Yes - Past Social History Smoking Status: Never Smoked Alcohol: None Drugs: Denies Home Situation {Lives}: With Family Domestic Violence: Negative - CARDIAC Hx Congestive Heart Failure: Yes Hx Hypertension: Yes - PULMONARY Hx Respiratory Disorders: No - NEUROLOGICAL Hx Parkinson's Disease: Yes - HEENT Hx HEENT Problems: No - RENAL Hx Chronic Kidney Disease: No - ENDOCRINE/METABOLIC Hx Endocrine Disorders: No - HEMATOLOGICAL/ONCOLOGICAL Hx Blood Disorders: Yes Hx Chemotherapy: Yes Other/Comment: " I HAVE SOME KIND OF CANCER IN MY BACK" - INTEGUMENTARY Hx Dermatological Problems: No - MUSCULOSKELETAL/RHEUMATOLOGICAL Hx Falls: No - GASTROINTESTINAL Hx Constipation: Yes - PSYCHIATRIC Hx Hallucinations: Yes Hx Schizophrenia: Yes Hx Substance Use: No - SURGICAL HISTORY Hx Surgeries: Yes Hx Orthopedic Surgery: Yes (Spine surgery ) Other/Comment: R subclavian shunt - ANESTHESIA Hx Anesthesia: Yes Hx Anesthesia Reactions: No Meds Home Medications: Home Medication List Medication Instructions Recorded Confirmed Type Carbidopa/Levodopa 25/100 mg 1 tab PO QID tab 12/28/16 Rx [Sinemet] Entacapone [Comtan] 200 mg PO ACBD tab 12/28/16 Rx Imipenem/Cilastatin [Primaxin IV] 500 mg IVPB Q12H vial 12/28/16 Rx Metoprolol Tartrate [Lopressor] 12.5 mg PO BID tab 12/28/16 Rx Pantoprazole [Protonix EC Tab] 40 mg PO DAILY ect 12/28/16 Rx Polyethylene Glycol 3350 [Miralax] 17 gm PO Q8H PRN packet 12/28/16 Rx Spironolactone [Aldactone] 25 mg PO DAILY tab 12/28/16 Rx Allergies/Adverse Reactions: Allergies Allergy/AdvReac Type Severity Reaction Status Date / Time No Known Allergies Allergy Verified 12/11/16 12:40 - Medications Medications: Current Medications Carbidopa/Levodopa (Sinemet) 1 tab PO QID [facility] Last Admin: 12/28/16 22:05 Dose: 1 tab Docusate Sodium (Colace) 100 mg PO TID [facility] Last Admin: 12/28/16 18:14 Dose: Not Given Entacapone (Comtan) 200 mg PO ACBD [facility] Last Admin: 12/29/16 08:30 Dose: 200 mg Furosemide (Lasix) 20 mg IVP DAILY [facility] Last Admin: 12/28/16 11:30 Dose: Not Given Imipenem/Cilastatin Sodium 500 (mg/ Dextrose) 100 mls @ 100 mls/hr IVPB Q12H [facility] Last Admin: 12/28/16 22:05 Dose: 100 mls/hr Metoprolol Tartrate (Lopressor) 12.5 mg PO BID [facility] Last Admin: 12/28/16 17:57 Dose: Not Given Pantoprazole Sodium (Protonix Ec Tab) 40 mg PO DAILY [facility] Last Admin: 12/28/16 11:29 Dose: 40 mg Polyethylene Glycol (Miralax) 17 gm PO Q8H PRN PRN Reason: Constipation Potassium Chloride (Potassium Chloride Oral Soln) 40 meq PO DAILY [facility] Last Admin: 12/28/16 16:27 Dose: 40 meq Spironolactone (Aldactone) 25 mg PO DAILY [facility] Last Admin: 12/28/16 11:28 Dose: Not Given Physical Exam - Constitutional Appears: Non-toxic - Respiratory Exam Respiratory Exam: Clear to Auscultation Bilateral - Cardiovascular Exam Cardiovascular Exam: RRR - Extremities Exam Extremities exam: Negative for: pedal edema - Neurological Exam Neurological exam: Alert Results - Vital Signs Recent Vital Signs: Last Vital Signs Temp 97 F L 12/29/16 08:52 Pulse 96 H 12/29/16 08:52 Resp 20 12/29/16 08:52 BP 98/64 L 12/29/16 08:52 Pulse Ox 100 12/29/16 08:52 - Labs Result Diagrams: 12/25/16 07:28 12/26/16 07:36 Assessment & Plan (1) Altered mental status Status: Acute (2) Pleural effusion Assessment and Plan: small Status: Acute (3) Sepsis Status: Acute (4) Congestive cardiomyopathy Status: Chronic (5) Parkinson disease Status: Chronic (6) Hyperbilirubinemia Assessment and Plan: TB-2 Status: Acute (7) CHF (congestive heart failure) Status: Chronic (8) Ascites Assessment and Plan: Minimal- oN CT 12/27/16 Status: Acute (9) Dysphagia Assessment and Plan: poor p.o. intake. Rec- Check swallow eval Consider PEG Status: Acute
[2016-12-29] MEDS: Potassium Chloride 20 mEq/15 ml LIQ UD PO SCH (10:55)
[2016-12-29] MEDS: Imipenem/Cilastatin 500 MG in Dextrose 5% In Water 100 ML IVPB SCH ×2 (10:57→21:50)
[2016-12-29] MEDS: Pantoprazole 40 mg EC Tab PO SCH (10:57)
[2016-12-29] MEDS: Potassium Chloride 20 mEq ER Tab PO SCH (10:57)
--- NOTE | 2016-12-29 11:51 | CP.PCM.PN ---
Subjective - Date & Time of Evaluation Date of Evaluation: 12/29/16 Time of Evaluation: 11:51 - Subjective Subjective: AFEBRILE aPPETITE POOR MENTAL STATUS WAXING AND WANING SEEN BY GI FOR FOR PEG. PATIENT FOR SWALLOW EVALUATION FIRST PER GI PATIENT ON IV ANTIBIOTICS FOR GNS/UTI. Objective - Vital Signs/Intake and Output Vital Signs (last 24 hours): Temp Pulse Resp BP Pulse Ox 97 F L 96 H 20 98/64 L 100 12/29/16 08:52 12/29/16 08:52 12/29/16 08:52 12/29/16 10:58 12/29/16 08:52 Intake and Output: 12/29/16 12/29/16 06:59 18:59 Intake Total 480 Output Total 1 Balance 479 - Medications Medications: Current Medications Carbidopa/Levodopa (Sinemet) 1 tab PO QID [facility] Last Admin: 12/29/16 10:57 Dose: 1 tab Docusate Sodium (Colace) 100 mg PO TID [facility] Last Admin: 12/29/16 10:57 Dose: 100 mg Entacapone (Comtan) 200 mg PO ACBD [facility] Last Admin: 12/29/16 08:30 Dose: 200 mg Furosemide (Lasix) 20 mg IVP DAILY [facility] Last Admin: 12/29/16 10:58 Dose: Not Given Imipenem/Cilastatin Sodium 500 (mg/ Dextrose) 100 mls @ 100 mls/hr IVPB Q12H [facility] Last Admin: 12/29/16 10:57 Dose: 100 mls/hr Metoprolol Tartrate (Lopressor) 12.5 mg PO BID [facility] Last Admin: 12/29/16 10:58 Dose: Not Given Pantoprazole Sodium (Protonix Ec Tab) 40 mg PO DAILY [facility] Last Admin: 12/29/16 10:57 Dose: 40 mg Polyethylene Glycol (Miralax) 17 gm PO Q8H PRN PRN Reason: Constipation Potassium Chloride (K-Dur 20 Meq Er Tab) 40 meq PO DAILY [facility] Last Admin: 12/29/16 10:57 Dose: 40 meq Spironolactone (Aldactone) 25 mg PO DAILY [facility] Last Admin: 12/29/16 10:58 Dose: Not Given - Labs Labs: 12/25/16 07:28 12/26/16 07:36 PT 16.7 SECONDS (9.7-12.2) H 12/11/16 13:34 INR 1.5 12/11/16 13:34 APTT 30 SECONDS (21-34) 12/11/16 13:34 - Constitutional Appears: No Acute Distress, Cachectic, Chronically Ill - Eye Exam Eye Exam: PERRL - ENT Exam ENT Exam: Mucous Membranes Dry - Respiratory Exam Respiratory Exam: Decreased Breath Sounds (AT THE BASES.), Rhonchi - Cardiovascular Exam Cardiovascular Exam: REGULAR RHYTHM, +S1, +S2 - GI/Abdominal Exam GI & Abdominal Exam: Soft, Normal Bowel Sounds - Extremities Exam Extremities Exam: Normal Capillary Refill. absent: Calf Tenderness, Pedal Edema - Neurological Exam Neurological Exam: Altered - Psychiatric Exam Psychiatric exam: Flat Affect - Skin Skin Exam: Dry, Warm Assessment and Plan (1) Altered mental status Status: Acute (2) Sepsis Status: Acute (3) UTI (urinary tract infection) Status: Acute (4) CHF (congestive heart failure) Status: Chronic (5) History of B-cell lymphoma Status: Chronic (6) Parkinson disease Status: Chronic - Assessment and Plan (Free Text) Assessment: Asssessment : S/P RESPIRATORY FAILURE / PNEUMONIA CHF WITH RIGHT-SIDED LARGE EFFUSION s/p RT.THORACENTESIS 12/20/16. S/P REPEAT THORACENTESIS 12/24/16 S/P GRAM-NEGATIVE SEPSIS +VE ESBL +VE E. COLI . source of sepsis most likely vs GI s/p CANDIDURIA HISTORY OF B CELL- LYMPHOMA ( IN REMISSION ) PARKINSONISM. Plan : CONTINUE IV PRIMAXIN 500 MG EVERY 6 HOURLY .12/13/16. DECREASE DOSE TO 500 MG EVERY 12 HOURLY -day16 for 4 more days. ( total of 3 weeks ) PULMONARY TOILET. ? PEG FOR FEEDINGS. PER CONSULTANTS.
--- NOTE | 2016-12-29 19:26 | CP.PCM.PN ---
Subjective - Date & Time of Evaluation Date of Evaluation: 12/29/16 Time of Evaluation: 16:00 - Subjective Subjective: the patient seen and examined In mild respiratory distress on exertion Not eating and seen by gastroenterology for possible PEG Status post thoracentesis Mental status waxing and waning Objective - Vital Signs/Intake and Output Vital Signs (last 24 hours): Temp Pulse Resp BP Pulse Ox 97.8 F 125 H 20 103/73 99 12/29/16 16:00 12/29/16 16:00 12/29/16 16:00 12/29/16 16:00 12/29/16 16:00 Intake and Output: 12/29/16 12/30/16 18:59 05:59 Intake Total 340 Balance 340 - Medications Medications: Current Medications Carbidopa/Levodopa (Sinemet) 1 tab PO QID [facility] Last Admin: 12/29/16 17:31 Dose: 1 tab Entacapone (Comtan) 200 mg PO ACBD [facility] Last Admin: 12/29/16 17:30 Dose: 200 mg Furosemide (Lasix) 20 mg IVP DAILY [facility] Last Admin: 12/29/16 10:58 Dose: Not Given Imipenem/Cilastatin Sodium 500 (mg/ Dextrose) 100 mls @ 100 mls/hr IVPB Q12H [facility] Last Admin: 12/29/16 10:57 Dose: 100 mls/hr Metoprolol Tartrate (Lopressor) 12.5 mg PO BID [facility] Last Admin: 12/29/16 17:30 Dose: 12.5 mg Pantoprazole Sodium (Protonix Ec Tab) 40 mg PO DAILY [facility] Last Admin: 12/29/16 10:57 Dose: 40 mg Polyethylene Glycol (Miralax) 17 gm PO Q8H PRN PRN Reason: Constipation Potassium Chloride (K-Dur 20 Meq Er Tab) 40 meq PO DAILY [facility] Last Admin: 12/29/16 10:57 Dose: 40 meq Spironolactone (Aldactone) 25 mg PO DAILY [facility] Last Admin: 12/29/16 10:58 Dose: Not Given - Labs Labs: 12/25/16 07:28 12/26/16 07:36 PT 16.7 SECONDS (9.7-12.2) H 12/11/16 13:34 INR 1.5 12/11/16 13:34 APTT 30 SECONDS (21-34) 12/11/16 13:34 - Head Exam Head Exam: ATRAUMATIC, NORMOCEPHALIC - ENT Exam ENT Exam: Mucous Membranes Dry - Neck Exam Neck Exam: Normal Inspection - Respiratory Exam Respiratory Exam: Decreased Breath Sounds - Cardiovascular Exam Cardiovascular Exam: REGULAR RHYTHM - GI/Abdominal Exam GI & Abdominal Exam: Soft, Normal Bowel Sounds Assessment and Plan (1) Sepsis Assessment & Plan: continue antibiotics as per ID Seen by gastroenterology Consider PEG Followup chest x-ray Status: Acute (2) Parkinson disease Status: Chronic (3) Congestive cardiomyopathy Status: Chronic (4) History of B-cell lymphoma Status: Chronic
[2016-12-29 23:41] LABS: RBC URINE < 1 /hpf (0-3); URINE BACTERIA RARE (<OCC); URINE BILIRUBIN 1+ (NEGATIVE); URINE BLOOD NEGATIVE (NEGATIVE); URINE GLUCOSE (UA) 1+ mg/dL (Normal); URINE HYALINE CAST 0-2 /lpf (0-2); URINE KETONE 1+ mg/dL (NEGATIVE); URINE LEUKOCYTE ESTERASE TRACE Leu/uL (Negative); URINE PROTEIN NEGATIVE (NEGATIVE); WBC URINE 12 /hpf (0-5)
[2016-12-29 23:42] LABS: URINE COLOR YELLOW (YELLOW)
[2016-12-30 07:18] LABS: INR 1.8
--- NOTE | 2016-12-30 10:09 | CP.PCM.PN ---
Subjective - Date & Time of Evaluation Date of Evaluation: 12/30/16 Time of Evaluation: 10:07 - Subjective Subjective: F/U dysphagia Covering DR Ballesteros No reprot of fever, RB, melena, MARTINES , cough SZ, hemoptysis, hematuuria Objective - Vital Signs/Intake and Output Vital Signs (last 24 hours): Temp Pulse Resp BP Pulse Ox 97.8 F 123 H 20 104/70 99 12/30/16 09:39 12/30/16 09:39 12/30/16 09:39 12/30/16 09:39 12/30/16 09:39 Intake and Output: 12/30/16 12/30/16 06:59 18:59 Intake Total Output Total Balance - Medications Medications: Current Medications Carbidopa/Levodopa (Sinemet) 1 tab PO QID [facility] Last Admin: 12/29/16 21:21 Dose: 1 tab Entacapone (Comtan) 200 mg PO ACBD [facility] Last Admin: 12/30/16 07:03 Dose: Not Given Furosemide (Lasix) 20 mg IVP DAILY [facility] Last Admin: 12/29/16 10:58 Dose: Not Given Imipenem/Cilastatin Sodium 500 (mg/ Dextrose) 100 mls @ 100 mls/hr IVPB Q12H [facility] Last Admin: 12/29/16 21:50 Dose: 100 mls/hr Metoprolol Tartrate (Lopressor) 12.5 mg PO BID [facility] Last Admin: 12/29/16 17:30 Dose: 12.5 mg Pantoprazole Sodium (Protonix Ec Tab) 40 mg PO DAILY [facility] Last Admin: 12/29/16 10:57 Dose: 40 mg Polyethylene Glycol (Miralax) 17 gm PO Q8H PRN PRN Reason: Constipation Potassium Chloride (K-Dur 20 Meq Er Tab) 40 meq PO DAILY [facility] Last Admin: 12/29/16 10:57 Dose: 40 meq Spironolactone (Aldactone) 25 mg PO DAILY [facility] Last Admin: 12/29/16 10:58 Dose: Not Given - Labs Labs: 12/25/16 07:28 12/26/16 07:36 PT 20.4 SECONDS (9.7-12.2) H 12/30/16 07:04 INR 1.8 12/30/16 07:04 APTT 32 SECONDS (21-34) 12/30/16 07:04 - Constitutional Appears: Non-toxic - Respiratory Exam Respiratory Exam: Rhonchi - Cardiovascular Exam Cardiovascular Exam: RRR - GI/Abdominal Exam GI & Abdominal Exam: Soft, Normal Bowel Sounds. absent: Tenderness - Extremities Exam Extremities Exam: absent: Calf Tenderness, Pedal Edema - Neurological Exam Neurological Exam: Alert, Awake. absent: Oriented x3 Assessment and Plan (1) Altered mental status Status: Acute (2) Pleural effusion Assessment & Plan: s/p tap 12/20 and 12/24 Status: Acute (3) Sepsis Assessment & Plan: On ABx. Pneumonia Status: Acute (4) Congestive cardiomyopathy Status: Chronic (5) Parkinson disease Status: Chronic (6) Hyperbilirubinemia Status: Acute (7) CHF (congestive heart failure) Status: Chronic (8) Ascites Status: Acute (9) Dysphagia Assessment & Plan: Sepsis, pneumonia, recent thorocentesis x 2. INR is elevated. Ordered speech eval. Consider PEG. Status: Acute
--- NOTE | 2016-12-30 10:28 | CP.PCM.PN ---
Subjective - Date & Time of Evaluation Date of Evaluation: 12/30/16 Time of Evaluation: 11:05 Objective - Vital Signs/Intake and Output Vital Signs (last 24 hours): Temp Pulse Resp BP Pulse Ox 97.8 F 123 H 20 104/70 99 12/30/16 09:39 12/30/16 09:39 12/30/16 09:39 12/30/16 09:39 12/30/16 09:39 Intake and Output: 12/30/16 12/30/16 06:59 18:59 Intake Total Output Total Balance - Medications Medications: Current Medications Carbidopa/Levodopa (Sinemet) 1 tab PO QID [facility] Last Admin: 12/29/16 21:21 Dose: 1 tab Entacapone (Comtan) 200 mg PO ACBD [facility] Last Admin: 12/30/16 07:03 Dose: Not Given Furosemide (Lasix) 20 mg IVP DAILY [facility] Last Admin: 12/29/16 10:58 Dose: Not Given Imipenem/Cilastatin Sodium 500 (mg/ Dextrose) 100 mls @ 100 mls/hr IVPB Q12H [facility] Last Admin: 12/29/16 21:50 Dose: 100 mls/hr Metoprolol Tartrate (Lopressor) 12.5 mg PO BID [facility] Last Admin: 12/29/16 17:30 Dose: 12.5 mg Pantoprazole Sodium (Protonix Ec Tab) 40 mg PO DAILY [facility] Last Admin: 12/29/16 10:57 Dose: 40 mg Polyethylene Glycol (Miralax) 17 gm PO Q8H PRN PRN Reason: Constipation Potassium Chloride (K-Dur 20 Meq Er Tab) 40 meq PO DAILY [facility] Last Admin: 12/29/16 10:57 Dose: 40 meq Spironolactone (Aldactone) 25 mg PO DAILY [facility] Last Admin: 12/29/16 10:58 Dose: Not Given - Labs Labs: 12/25/16 07:28 12/26/16 07:36 PT 20.4 SECONDS (9.7-12.2) H 12/30/16 07:04 INR 1.8 12/30/16 07:04 APTT 32 SECONDS (21-34) 12/30/16 07:04 Assessment and Plan (1) Altered mental status Status: Acute (2) Sepsis Status: Acute (3) UTI (urinary tract infection) Status: Acute (4) History of B-cell lymphoma Status: Chronic (5) Parkinson disease Status: Chronic (6) CHF (congestive heart failure) Status: Chronic (7) Congestive cardiomyopathy Status: Chronic (8) Pleural effusion Status: Acute (9) VRE infection (vancomycin resistant Enterococcus) Status: Acute (10) Infection due to ESBL-producing Escherichia coli Status: Acute
--- NOTE | 2016-12-30 10:36 | CP.PCM.PN ---
Subjective - Date & Time of Evaluation Date of Evaluation: 12/30/16 Time of Evaluation: 11:15 - Subjective Subjective: Patient is more alert toiday. Still will not eat or drink. Needs to have a PEG inserted. Her BP today is 104 systolic so lasis can be given. Arcadio by GI. For PEG tomorrow. Objective - Vital Signs/Intake and Output Vital Signs (last 24 hours): Temp Pulse Resp BP Pulse Ox 97.8 F 123 H 20 104/70 99 12/30/16 09:39 12/30/16 09:39 12/30/16 09:39 12/30/16 09:39 12/30/16 09:39 Intake and Output: 12/30/16 12/30/16 06:59 18:59 Intake Total Output Total Balance - Medications Medications: Current Medications Carbidopa/Levodopa (Sinemet) 1 tab PO QID [facility] Last Admin: 12/29/16 21:21 Dose: 1 tab Entacapone (Comtan) 200 mg PO ACBD [facility] Last Admin: 12/30/16 07:03 Dose: Not Given Furosemide (Lasix) 20 mg IVP DAILY [facility] Last Admin: 12/29/16 10:58 Dose: Not Given Imipenem/Cilastatin Sodium 500 (mg/ Dextrose) 100 mls @ 100 mls/hr IVPB Q12H [facility] Last Admin: 12/29/16 21:50 Dose: 100 mls/hr Metoprolol Tartrate (Lopressor) 12.5 mg PO BID [facility] Last Admin: 12/29/16 17:30 Dose: 12.5 mg Pantoprazole Sodium (Protonix Ec Tab) 40 mg PO DAILY [facility] Last Admin: 12/29/16 10:57 Dose: 40 mg Polyethylene Glycol (Miralax) 17 gm PO Q8H PRN PRN Reason: Constipation Potassium Chloride (K-Dur 20 Meq Er Tab) 40 meq PO DAILY [facility] Last Admin: 12/29/16 10:57 Dose: 40 meq Spironolactone (Aldactone) 25 mg PO DAILY [facility] Last Admin: 12/29/16 10:58 Dose: Not Given - Labs Labs: 12/25/16 07:28 12/26/16 07:36 PT 20.4 SECONDS (9.7-12.2) H 12/30/16 07:04 INR 1.8 12/30/16 07:04 APTT 32 SECONDS (21-34) 12/30/16 07:04 - Constitutional Appears: Non-toxic - Head Exam Head Exam: ATRAUMATIC, NORMAL INSPECTION, NORMOCEPHALIC - Eye Exam Eye Exam: Normal appearance Pupil Exam: PERRL - ENT Exam ENT Exam: Mucous Membranes Dry - Neck Exam Neck Exam: Full ROM - Respiratory Exam Respiratory Exam: NORMAL BREATHING PATTERN - Cardiovascular Exam Cardiovascular Exam: Tachycardia, REGULAR RHYTHM, +S1, +S2 - GI/Abdominal Exam GI & Abdominal Exam: Soft - Rectal Exam Rectal Exam: Deferred - Extremities Exam Extremities Exam: Full ROM - Neurological Exam Neurological Exam: Altered, Awake - Psychiatric Exam Psychiatric exam: Depressed - Skin Skin Exam: Dry, Intact, Warm Assessment and Plan (1) Altered mental status Status: Acute (2) Sepsis Status: Acute (3) UTI (urinary tract infection) Status: Acute (4) History of B-cell lymphoma Status: Chronic (5) Parkinson disease Status: Chronic (6) CHF (congestive heart failure) Status: Chronic (7) Congestive cardiomyopathy Status: Chronic (8) Pleural effusion Status: Acute (9) VRE infection (vancomycin resistant Enterococcus) Status: Acute (10) Infection due to ESBL-producing Escherichia coli Status: Acute - Assessment and Plan (Free Text) Plan: Continue all meications and IV antibiotics For PEG in AM.
[2016-12-30] MEDS: Pantoprazole 40 mg EC Tab PO SCH (11:00)
[2016-12-30] MEDS: Potassium Chloride 20 mEq ER Tab PO SCH (11:00)
[2016-12-30] MEDS: Imipenem/Cilastatin 500 MG in Dextrose 5% In Water 100 ML IVPB SCH ×2 (11:03→21:39)
[2016-12-30 11:18] LABS: BASO % 0.5 % (0.0-2.0); EOS % 0.2 % (0.0-4.0); HEMATOCRIT 38.3 % (34.0-47.0); LYMPH # 0.8 K/uL (1.0-4.3); LYMPH % 31.1 % (20.0-40.0); MEAN CELL VOLUME 96.8 fL (81.0-99.0); MEAN CORPUSCULAR HEMOGLOBIN 31.6 pg (27.0-31.0); MEAN CORPUSCULAR HGB CONC 32.6 g/dL (33.0-37.0); MEAN PLATELET VOLUME 10.3 fL (7.2-11.7); MONO # 0.3 K/uL (0.0-0.8); MONO % 11.3 % (0.0-10.0); NRBC % 0.1 % (0.0-2.0); RED CELL DISTRIBUTION WIDTH 24.4 % (11.5-14.5); WHITE BLOOD COUNT 2.7 K/uL (4.8-10.8)
[2016-12-30 11:24] LABS: CHLORIDE 108 mmol/L (98-107)
[2016-12-30 11:25] LABS: SODIUM 137 mmol/L (132-148)
[2016-12-30 11:27] LABS: ALKALINE PHOSPHATASE 106 U/L (38-126); AST/SGOT 23 U/L (14-36); BILIRUBIN,TOTAL 1.9 mg/dL (0.2-1.3); CARBON DIOXIDE 19 mmol/L (22-30); GFR AFRICAN-AMERICAN > 60; TOTAL PROTEIN 5.6 g/dL (6.3-8.3)
[2016-12-30 11:28] LABS: ALT/SGPT 36 U/L (9-52); BLOOD UREA NITROGEN 20 mg/dL (7-17); CALCIUM 8.8 mg/dl (8.6-10.4); GLUCOSE,RANDOM 82 mg/dL (65-105)
[2016-12-31] MEDS: Imipenem/Cilastatin 500 MG in Dextrose 5% In Water 100 ML IVPB SCH ×2 (10:24→21:53)
[2016-12-31] MEDS ORDERED: Phytonadione 10 mg/ml Inj (Adult) IV STA (10:28)
--- NOTE | 2016-12-31 10:33 | CP.PCM.PN ---
Subjective - Date & Time of Evaluation Date of Evaluation: 12/31/16 Time of Evaluation: 10:30 - Subjective Subjective: Paient seen and examined. Still not wanting to eat. She can eat but refuses to. Afebrile. Lesser SOB. Objective - Vital Signs/Intake and Output Vital Signs (last 24 hours): Temp Pulse Resp BP Pulse Ox 97.4 F L 118 H 18 99/70 L 98 12/30/16 23:55 12/30/16 23:55 12/30/16 23:55 12/30/16 23:55 12/30/16 23:55 Intake and Output: 12/31/16 12/31/16 06:59 18:59 Intake Total 180 Balance 180 - Medications Medications: Current Medications Carbidopa/Levodopa (Sinemet) 1 tab PO QID [facility] Last Admin: 12/30/16 21:39 Dose: Not Given Entacapone (Comtan) 200 mg PO ACBD [facility] Last Admin: 12/31/16 08:18 Dose: 200 mg Furosemide (Lasix) 20 mg IVP DAILY [facility] Last Admin: 12/30/16 11:00 Dose: 20 mg Imipenem/Cilastatin Sodium 500 (mg/ Dextrose) 100 mls @ 100 mls/hr IVPB Q12H [facility] Last Admin: 12/31/16 10:24 Dose: 100 mls/hr Metoprolol Tartrate (Lopressor) 12.5 mg PO BID [facility] Last Admin: 12/30/16 17:18 Dose: 12.5 mg Pantoprazole Sodium (Protonix Ec Tab) 40 mg PO DAILY [facility] Last Admin: 12/30/16 11:00 Dose: 40 mg Phytonadione (Vitamin K Inj) 10 mg IV STAT STA Stop: 12/31/16 10:29 Polyethylene Glycol (Miralax) 17 gm PO Q8H PRN PRN Reason: Constipation Potassium Chloride (K-Dur 20 Meq Er Tab) 40 meq PO DAILY [facility] Last Admin: 12/30/16 11:00 Dose: 40 meq Spironolactone (Aldactone) 25 mg PO DAILY [facility] Last Admin: 12/30/16 12:00 Dose: Not Given - Labs Labs: 12/30/16 11:08 12/30/16 11:08 PT 20.4 SECONDS (9.7-12.2) H 12/30/16 07:04 INR 1.8 12/30/16 07:04 APTT 32 SECONDS (21-34) 12/30/16 07:04 - Constitutional Appears: Non-toxic, No Acute Distress - Head Exam Head Exam: ATRAUMATIC, NORMAL INSPECTION, NORMOCEPHALIC - Eye Exam Eye Exam: Normal appearance Pupil Exam: PERRL - ENT Exam ENT Exam: Mucous Membranes Dry - Neck Exam Neck Exam: Full ROM - Respiratory Exam Respiratory Exam: Decreased Breath Sounds, NORMAL BREATHING PATTERN - Cardiovascular Exam Cardiovascular Exam: Tachycardia, +S1, +S2 - GI/Abdominal Exam GI & Abdominal Exam: Soft, Hypoactive Bowel Sounds - Rectal Exam Rectal Exam: Deferred - Neurological Exam Neurological Exam: Altered, Awake - Psychiatric Exam Psychiatric exam: Depressed - Skin Skin Exam: Dry, Intact, Normal Color Assessment and Plan (1) Altered mental status Status: Acute (2) Sepsis Status: Acute (3) UTI (urinary tract infection) Status: Acute (4) History of B-cell lymphoma Status: Chronic (5) Parkinson disease Status: Chronic (6) CHF (congestive heart failure) Status: Chronic (7) Congestive cardiomyopathy Status: Chronic (8) Pleural effusion Status: Acute (9) VRE infection (vancomycin resistant Enterococcus) Status: Acute (10) Infection due to ESBL-producing Escherichia coli Status: Acute - Assessment and Plan (Free Text) Plan: Plan: Continue present teatment. Continue IV antibiotics. Vit K. PEG insertion.
[2016-12-31] MEDS ORDERED: Phytonadione 10 MG in Sodium Chloride 0.9% 50 ML IV ONE (11:30)
--- NOTE | 2016-12-31 11:50 | RAD ---
PROCEDURE: CHEST RADIOGRAPH, 1 VIEW HISTORY: Pleural effusion. COMPARISON: 12/27/2016 FINDINGS: LUNGS: Stable consolidative changes in both lower lobes right greater than left. PLEURA: Stable pleural effusions. CARDIOVASCULAR: No radiographic findings to suggest acute or significant cardiovascular disease. Venous access catheter in stable, satisfactory position. OSSEOUS STRUCTURES: No significant abnormalities. VISUALIZED UPPER ABDOMEN: Normal. OTHER FINDINGS: None. IMPRESSION: No significant interval change compared to the prior examination(s).
--- NOTE | 2016-12-31 15:45 | CP.PCM.PN ---
Subjective - Date & Time of Evaluation Date of Evaluation: 12/31/16 Time of Evaluation: 15:44 - Subjective Subjective: Still minimal po intake and no desire to eat. Spoke with POA to agrees to insertion of PEG tube. Telephone consent obtained. Awaiting PT-Inr repeat today. Objective - Vital Signs/Intake and Output Vital Signs (last 24 hours): Temp Pulse Resp BP Pulse Ox 97.4 F L 118 H 18 100/70 98 12/30/16 23:55 12/30/16 23:55 12/30/16 23:55 12/31/16 11:20 12/30/16 23:55 Intake and Output: 12/31/16 12/31/16 06:59 18:59 Intake Total 180 Balance 180 - Medications Medications: Current Medications Carbidopa/Levodopa (Sinemet) 1 tab PO QID [facility] Last Admin: 12/31/16 11:20 Dose: 1 tab Entacapone (Comtan) 200 mg PO ACBD [facility] Last Admin: 12/31/16 08:18 Dose: 200 mg Furosemide (Lasix) 20 mg IVP DAILY [facility] Last Admin: 12/31/16 11:20 Dose: 20 mg Imipenem/Cilastatin Sodium 500 (mg/ Dextrose) 100 mls @ 100 mls/hr IVPB Q12H [facility] Last Admin: 12/31/16 10:24 Dose: 100 mls/hr Metoprolol Tartrate (Lopressor) 12.5 mg PO BID [facility] Last Admin: 12/31/16 11:19 Dose: 12.5 mg Pantoprazole Sodium (Protonix Ec Tab) 40 mg PO DAILY [facility] Last Admin: 12/30/16 11:00 Dose: 40 mg Polyethylene Glycol (Miralax) 17 gm PO Q8H PRN PRN Reason: Constipation Potassium Chloride (K-Dur 20 Meq Er Tab) 40 meq PO DAILY [facility] Last Admin: 12/30/16 11:00 Dose: 40 meq Spironolactone (Aldactone) 25 mg PO DAILY [facility] Last Admin: 12/31/16 11:20 Dose: 25 mg - Labs Labs: 12/30/16 11:08 12/30/16 11:08 PT 20.4 SECONDS (9.7-12.2) H 12/30/16 07:04 INR 1.8 12/30/16 07:04 APTT 32 SECONDS (21-34) 12/30/16 07:04 - Constitutional Appears: No Acute Distress - Head Exam Head Exam: ATRAUMATIC, NORMOCEPHALIC - Eye Exam Eye Exam: EOMI, PERRL - Respiratory Exam Respiratory Exam: Decreased Breath Sounds, NORMAL BREATHING PATTERN - Cardiovascular Exam Cardiovascular Exam: REGULAR RHYTHM - GI/Abdominal Exam GI & Abdominal Exam: Soft, Normal Bowel Sounds. absent: Guarding, Tenderness, Hernia, Mass, Rebound - Extremities Exam Extremities Exam: Normal Inspection Assessment and Plan (1) Malnutrition Assessment & Plan: LIkely due to poor intake due to Parkinsons, CHF and possible Dementia. Family and Attending request PEG for further nutitional management. Status: Acute (2) Dysphagia Assessment & Plan: Case discussed with several attendings involved and agree PEG will assist with proper po intake. Will plan to insert PEG in am if PT-INR is corrected with Vit K and/or FFP. ( 1.80) Status: Acute (3) Parkinson disease Status: Chronic (4) Coagulopathy Assessment & Plan: Will give FFP if INR not corrected by Vit K. Potential procedure today cancelled due to bleeding risk. Status: Acute
[2016-12-31 17:06] LABS: INR 1.8
[2016-12-31] MEDS: Potassium Chloride 20 mEq ER Tab PO SCH (17:18)
[2016-12-31] MEDS: Pantoprazole 40 mg EC Tab PO SCH (17:19)
--- NOTE | 2016-12-31 17:24 | CP.PCM.PN ---
Subjective - Date & Time of Evaluation Date of Evaluation: 12/31/16 Time of Evaluation: 09:45 - Subjective Subjective: patient seen and examined Awake and responsive And no respirator stress Poor appetite For PEG insertion Status post thoracentesis Continue antibiotics per ID Objective - Vital Signs/Intake and Output Vital Signs (last 24 hours): Temp Pulse Resp BP Pulse Ox 97.4 F L 123 H 20 108/72 98 12/31/16 15:00 12/31/16 15:00 12/31/16 15:00 12/31/16 15:00 12/31/16 15:00 Intake and Output: 12/31/16 12/31/16 06:59 18:59 Intake Total 180 Balance 180 - Medications Medications: Current Medications Carbidopa/Levodopa (Sinemet) 1 tab PO QID [facility] Last Admin: 12/31/16 17:21 Dose: 1 tab Entacapone (Comtan) 200 mg PO ACBD [facility] Last Admin: 12/31/16 17:21 Dose: 200 mg Furosemide (Lasix) 20 mg IVP DAILY [facility] Last Admin: 12/31/16 11:20 Dose: 20 mg Imipenem/Cilastatin Sodium 500 (mg/ Dextrose) 100 mls @ 100 mls/hr IVPB Q12H [facility] Last Admin: 12/31/16 10:24 Dose: 100 mls/hr Metoprolol Tartrate (Lopressor) 12.5 mg PO BID [facility] Last Admin: 12/31/16 11:19 Dose: 12.5 mg Pantoprazole Sodium (Protonix Ec Tab) 40 mg PO DAILY [facility] Last Admin: 12/31/16 17:19 Dose: 40 mg Polyethylene Glycol (Miralax) 17 gm PO Q8H PRN PRN Reason: Constipation Potassium Chloride (K-Dur 20 Meq Er Tab) 40 meq PO DAILY [facility] Last Admin: 12/31/16 17:18 Dose: 40 meq Spironolactone (Aldactone) 25 mg PO DAILY [facility] Last Admin: 12/31/16 11:20 Dose: 25 mg - Labs Labs: 12/30/16 11:08 12/30/16 11:08 PT 20.1 SECONDS (9.7-12.2) H 12/31/16 16:50 INR 1.8 12/31/16 16:50 APTT 32 SECONDS (21-34) 12/30/16 07:04 - Head Exam Head Exam: ATRAUMATIC, NORMOCEPHALIC - Eye Exam Eye Exam: Normal appearance - ENT Exam ENT Exam: Mucous Membranes Moist - Respiratory Exam Respiratory Exam: Decreased Breath Sounds - Cardiovascular Exam Cardiovascular Exam: REGULAR RHYTHM - GI/Abdominal Exam GI & Abdominal Exam: Soft, Normal Bowel Sounds - Extremities Exam Extremities Exam: Normal Inspection - Neurological Exam Neurological Exam: Alert Assessment and Plan (1) Sepsis Assessment & Plan: continue antibiotics per ID For PEG insertion Status post thoracentesis Followup chest x-ray Status: Acute (2) Parkinson disease Status: Chronic (3) Congestive cardiomyopathy Status: Chronic (4) History of B-cell lymphoma Status: Chronic
--- NOTE | 2016-12-31 20:08 | CP.PCM.PN ---
Subjective - Date & Time of Evaluation Date of Evaluation: 12/31/16 Time of Evaluation: 20:08 - Subjective Subjective: AFEBRILE MORE AWAKE, NO SHORTNESS OF BREATH, ON NASAL CANNULA 2L/O2 APPETITE POOR SEEN BY GI FOR FOR PEG. INR HIGH AT 1.8, PATIENT GIVEN VIT K . PEG POSTPONED FOR A.M. PER DR. ENRIQUEZ GI. LABS REVIEWED. PLEURAL FLUID NEGATIVE CULTURE GROWTH. WBC 2.7 LEUKOPENIC ? IMMUNE VERSUS DRUGS Objective - Vital Signs/Intake and Output Vital Signs (last 24 hours): Temp Pulse Resp BP Pulse Ox 97.4 F L 123 H 20 108/72 98 12/31/16 15:00 12/31/16 15:00 12/31/16 15:00 12/31/16 15:00 12/31/16 15:00 - Medications Medications: Current Medications Carbidopa/Levodopa (Sinemet) 1 tab PO QID [facility] Last Admin: 12/31/16 17:21 Dose: 1 tab Entacapone (Comtan) 200 mg PO ACBD [facility] Last Admin: 12/31/16 17:21 Dose: 200 mg Furosemide (Lasix) 20 mg IVP DAILY [facility] Last Admin: 12/31/16 11:20 Dose: 20 mg Imipenem/Cilastatin Sodium 500 (mg/ Dextrose) 100 mls @ 100 mls/hr IVPB Q12H [facility] Last Admin: 12/31/16 10:24 Dose: 100 mls/hr Metoprolol Tartrate (Lopressor) 12.5 mg PO BID [facility] Last Admin: 12/31/16 11:19 Dose: 12.5 mg Pantoprazole Sodium (Protonix Ec Tab) 40 mg PO DAILY [facility] Last Admin: 12/31/16 17:19 Dose: 40 mg Polyethylene Glycol (Miralax) 17 gm PO Q8H PRN PRN Reason: Constipation Potassium Chloride (K-Dur 20 Meq Er Tab) 40 meq PO DAILY [facility] Last Admin: 12/31/16 17:18 Dose: 40 meq Spironolactone (Aldactone) 25 mg PO DAILY [facility] Last Admin: 12/31/16 11:20 Dose: 25 mg - Labs Labs: 12/30/16 11:08 12/30/16 11:08 PT 20.1 SECONDS (9.7-12.2) H 12/31/16 16:50 INR 1.8 12/31/16 16:50 APTT 32 SECONDS (21-34) 12/30/16 07:04 - Constitutional Appears: No Acute Distress, Cachectic, Chronically Ill - Head Exam Head Exam: NORMAL INSPECTION - Eye Exam Eye Exam: EOMI, PERRL, Scleral icterus - ENT Exam ENT Exam: Normal Oropharynx - Neck Exam Neck Exam: Normal Inspection - Respiratory Exam Respiratory Exam: Decreased Breath Sounds - Cardiovascular Exam Cardiovascular Exam: REGULAR RHYTHM, +S1, +S2 - GI/Abdominal Exam GI & Abdominal Exam: Soft, Normal Bowel Sounds - Extremities Exam Extremities Exam: absent: Calf Tenderness, Pedal Edema - Neurological Exam Neurological Exam: Awake - Psychiatric Exam Psychiatric exam: Flat Affect - Skin Skin Exam: Dry, Warm Assessment and Plan (1) Altered mental status Status: Acute (2) Sepsis Status: Acute (3) UTI (urinary tract infection) Status: Acute (4) CHF (congestive heart failure) Status: Chronic (5) History of B-cell lymphoma Status: Chronic (6) Parkinson disease Status: Chronic - Assessment and Plan (Free Text) Assessment: FAILURE TO THRIVE/ANOREXIA. LEUKOPENIA ? IMMUNE VS DRUGS ? SINEMET, ? ABX S/P RESPIRATORY FAILURE / PNEUMONIA CHF WITH RIGHT-SIDED LARGE EFFUSION s/p RT.THORACENTESIS 12/20/16. S/P REPEAT THORACENTESIS 12/24/16 S/P GRAM-NEGATIVE SEPSIS +VE ESBL +VE E. COLI . source of sepsis most likely vs GI s/p CANDIDURIA HISTORY OF B CELL- LYMPHOMA ( IN REMISSION ) PARKINSONISM. Plan : CONTINUE IV PRIMAXIN 500 MG EVERY 6 HOURLY .12/13/16. DECREASE DOSE TO 500 MG EVERY 12 HOURLY - May DC IV Primaxin post-PEG insertion. f/u CBC with differential post PEG. PULMONARY TOILET. PEG IN A.M. PER CONSULTANTS.
[2017-01-01 08:06] LABS: MEAN CELL VOLUME 96.6 fL (81.0-99.0); MEAN CORPUSCULAR HEMOGLOBIN 31.7 pg (27.0-31.0); MEAN CORPUSCULAR HGB CONC 32.8 g/dL (33.0-37.0); MEAN PLATELET VOLUME 10.9 fL (7.2-11.7); RED CELL DISTRIBUTION WIDTH 24.4 % (11.5-14.5); WHITE BLOOD COUNT 2.3 K/uL (4.8-10.8)
[2017-01-01 08:14] LABS: INR 1.5
[2017-01-01 08:38] LABS: CHLORIDE 104 mmol/L (98-107); POTASSIUM 2.8 mmol/L (3.6-5.2); SODIUM 135 mmol/L (132-148)
[2017-01-01 08:40] LABS: GFR AFRICAN-AMERICAN > 60
[2017-01-01 08:41] LABS: ALB/GLOB RATIO 1.5 (1.0-2.1); ALKALINE PHOSPHATASE 99 U/L (38-126); ALT/SGPT 35 U/L (9-52); AST/SGOT 24 U/L (14-36); BILIRUBIN,TOTAL 2.2 mg/dL (0.2-1.3); BLOOD UREA NITROGEN 20 mg/dL (7-17); CALCIUM 7.9 mg/dl (8.6-10.4); CARBON DIOXIDE 23 mmol/L (22-30); GLUCOSE,RANDOM 75 mg/dL (65-105); TOTAL PROTEIN 4.5 g/dL (6.3-8.3)
[2017-01-01] MEDS: Potassium Chloride 20 mEq ER Tab PO SCH (09:16)
[2017-01-01] MEDS: Pantoprazole 40 mg EC Tab PO SCH (09:17)
[2017-01-01] MEDS ORDERED: Propofol 10 mg/ml Inj (20 ML) ONE (09:53)
[2017-01-01] MEDS ORDERED: Lidocaine Hydrochloride 5 ML INJ ONE (10:03)
[2017-01-01] MEDS ORDERED: Phytonadione 10 mg/ml Inj (Adult) SC ONE ×2 (10:30→12:45)
--- NOTE | 2017-01-01 10:48 | CP.PCM.PN ---
Subjective - Date & Time of Evaluation Date of Evaluation: 01/01/17 Time of Evaluation: 10:45 - Subjective Subjective: Afebrile. Patient seen in the endoscxopy room. Awake, with preiod s of disorientation For PEG insertion today.. Objective - Vital Signs/Intake and Output Vital Signs (last 24 hours): Temp Pulse Resp BP Pulse Ox 97.7 F 117 H 21 104/72 100 01/01/17 08:25 01/01/17 08:25 01/01/17 08:25 01/01/17 08:25 01/01/17 08:25 Intake and Output: 01/01/17 01/01/17 06:59 18:59 Intake Total 160 420 Balance 160 420 - Medications Medications: Current Medications Carbidopa/Levodopa (Sinemet) 1 tab PO QID [facility] Last Admin: 01/01/17 09:17 Dose: Not Given Entacapone (Comtan) 200 mg PO ACBD [facility] Last Admin: 01/01/17 07:59 Dose: 200 mg Furosemide (Lasix) 20 mg IVP DAILY [facility] Last Admin: 01/01/17 09:16 Dose: Not Given Imipenem/Cilastatin Sodium 500 (mg/ Dextrose) 100 mls @ 100 mls/hr IVPB Q12H [facility] Last Admin: 12/31/16 21:53 Dose: 100 mls/hr Potassium Chloride (Potassium Chloride 20 Meq/100 Ml) 20 meq in 100 mls @ 50 mls/hr IVPB ONCE ONE Stop: 01/01/17 12:12 Metoprolol Tartrate (Lopressor) 12.5 mg PO BID [facility] Last Admin: 01/01/17 09:17 Dose: Not Given Pantoprazole Sodium (Protonix Ec Tab) 40 mg PO DAILY [facility] Last Admin: 01/01/17 09:17 Dose: Not Given Polyethylene Glycol (Miralax) 17 gm PO Q8H PRN PRN Reason: Constipation Potassium Chloride (K-Dur 20 Meq Er Tab) 40 meq PO DAILY [facility] Last Admin: 01/01/17 09:16 Dose: Not Given Spironolactone (Aldactone) 25 mg PO DAILY [facility] Last Admin: 01/01/17 09:16 Dose: Not Given - Labs Labs: 01/01/17 08:00 01/01/17 08:00 PT 17.6 SECONDS (9.7-12.2) H 01/01/17 08:00 INR 1.5 01/01/17 08:00 APTT 32 SECONDS (21-34) 12/30/16 07:04 - Constitutional Appears: Non-toxic - Head Exam Head Exam: ATRAUMATIC, NORMAL INSPECTION, NORMOCEPHALIC - Eye Exam Eye Exam: Normal appearance Pupil Exam: PERRL - ENT Exam ENT Exam: Mucous Membranes Dry - Neck Exam Neck Exam: Full ROM, Normal Inspection - Respiratory Exam Respiratory Exam: Clear to Ausculation Bilateral, NORMAL BREATHING PATTERN - Cardiovascular Exam Cardiovascular Exam: Tachycardia, +S1, +S2 - GI/Abdominal Exam GI & Abdominal Exam: Soft - Rectal Exam Rectal Exam: Deferred - Back Exam Back Exam: Full ROM, NORMAL INSPECTION - Neurological Exam Neurological Exam: Altered, Awake - Psychiatric Exam Psychiatric exam: Depressed Assessment and Plan (1) Altered mental status Status: Acute (2) Sepsis Status: Acute (3) UTI (urinary tract infection) Status: Acute (4) History of B-cell lymphoma Status: Chronic (5) Parkinson disease Status: Chronic (6) CHF (congestive heart failure) Status: Chronic (7) Congestive cardiomyopathy Status: Chronic (8) Pleural effusion Status: Acute (9) VRE infection (vancomycin resistant Enterococcus) Status: Acute (10) Infection due to ESBL-producing Escherichia coli Status: Acute - Assessment and Plan (Free Text) Plan: Plan: Continue IV antibiotics. PEG toiday and to start her on tube feeding in AM.
--- NOTE | 2017-01-01 10:58 | CP.PCM.PN ---
Subjective - Date & Time of Evaluation Date of Evaluation: 01/01/17 Time of Evaluation: 10:56 - Subjective Subjective: Procedure summary: 20Fr Ponsky PEG tube device inserted in area of maximal transillumination in LUQ without difficulty and anchored in sterile fashion. Begin tube feedings slowly in 8 hours. Continue abx as per ID. Monitor for bleeding, FFP given and INR-1.5 was prior to second FFP being given. Vit K one further dose ordered Case d/w Dr [place] of KCl was ordered prior to the procedure as well. Objective - Vital Signs/Intake and Output Vital Signs (last 24 hours): Temp Pulse Resp BP Pulse Ox 97.7 F 117 H 21 104/72 100 01/01/17 08:25 01/01/17 08:25 01/01/17 08:25 01/01/17 08:25 01/01/17 08:25 Intake and Output: 01/01/17 01/01/17 06:59 18:59 Intake Total 160 420 Balance 160 420 - Medications Medications: Current Medications Carbidopa/Levodopa (Sinemet) 1 tab PO QID [facility] Last Admin: 01/01/17 09:17 Dose: Not Given Entacapone (Comtan) 200 mg PO ACBD [facility] Last Admin: 01/01/17 07:59 Dose: 200 mg Furosemide (Lasix) 20 mg IVP DAILY [facility] Last Admin: 01/01/17 09:16 Dose: Not Given Imipenem/Cilastatin Sodium 500 (mg/ Dextrose) 100 mls @ 100 mls/hr IVPB Q12H [facility] Last Admin: 12/31/16 21:53 Dose: 100 mls/hr Potassium Chloride (Potassium Chloride 20 Meq/100 Ml) 20 meq in 100 mls @ 50 mls/hr IVPB ONCE ONE Stop: 01/01/17 12:12 Metoprolol Tartrate (Lopressor) 12.5 mg PO BID [facility] Last Admin: 01/01/17 09:17 Dose: Not Given Pantoprazole Sodium (Protonix Ec Tab) 40 mg PO DAILY [facility] Last Admin: 01/01/17 09:17 Dose: Not Given Polyethylene Glycol (Miralax) 17 gm PO Q8H PRN PRN Reason: Constipation Potassium Chloride (K-Dur 20 Meq Er Tab) 40 meq PO DAILY [facility] Last Admin: 01/01/17 09:16 Dose: Not Given Spironolactone (Aldactone) 25 mg PO DAILY [facility] Last Admin: 01/01/17 09:16 Dose: Not Given - Labs Labs: 01/01/17 08:00 01/01/17 08:00 PT 17.6 SECONDS (9.7-12.2) H 01/01/17 08:00 INR 1.5 01/01/17 08:00 APTT 32 SECONDS (21-34) 12/30/16 07:04 Assessment and Plan (1) Malnutrition Status: Acute (2) Dysphagia Status: Acute (3) Parkinson disease Status: Chronic (4) Coagulopathy Status: Acute
[2017-01-01] MEDS ORDERED: Lactated Ringer's 500 ML IV SCH (11:15)
[2017-01-01] MEDS: Imipenem/Cilastatin 500 MG in Dextrose 5% In Water 100 ML IVPB SCH (12:59)
--- NOTE | 2017-01-01 13:43 | CP.PCM.PN ---
Subjective - Date & Time of Evaluation Date of Evaluation: 01/01/17 Time of Evaluation: 13:43 - Subjective Subjective: AFEBRILE BP 101/65. S/P PEG INSERTION TODAY PATIENT TOLERATED PROCEDURE WELL Objective - Vital Signs/Intake and Output Vital Signs (last 24 hours): Temp Pulse Resp BP Pulse Ox 96.7 F L 107 H 18 101/67 100 01/01/17 11:06 01/01/17 11:36 01/01/17 11:36 01/01/17 11:36 01/01/17 11:36 Intake and Output: 01/01/17 01/01/17 06:59 18:59 Intake Total 160 420 Balance 160 420 - Medications Medications: Current Medications Carbidopa/Levodopa (Sinemet) 1 tab PO QID [facility] Last Admin: 01/01/17 09:17 Dose: Not Given Entacapone (Comtan) 200 mg PO ACBD [facility] Last Admin: 01/01/17 07:59 Dose: 200 mg Furosemide (Lasix) 20 mg IVP DAILY [facility] Last Admin: 01/01/17 09:16 Dose: Not Given Imipenem/Cilastatin Sodium 500 (mg/ Dextrose) 100 mls @ 100 mls/hr IVPB Q12H [facility] Last Admin: 01/01/17 12:59 Dose: 100 mls/hr Lactated Ringer's (Lactated Ringer's 500ml) 500 mls @ 75 mls/hr IV .Q6H40M [facility] Potassium Chloride (Potassium Chloride 20 Meq/100 Ml) 20 meq in 100 mls @ 50 mls/hr IVPB ONCE ONE Stop: 01/01/17 15:59 Metoprolol Tartrate (Lopressor) 12.5 mg PO BID [facility] Last Admin: 01/01/17 09:17 Dose: Not Given Pantoprazole Sodium (Protonix Ec Tab) 40 mg PO DAILY [facility] Last Admin: 01/01/17 09:17 Dose: Not Given Polyethylene Glycol (Miralax) 17 gm PO Q8H PRN PRN Reason: Constipation Potassium Chloride (K-Dur 20 Meq Er Tab) 40 meq PO DAILY [facility] Last Admin: 01/01/17 09:16 Dose: Not Given Spironolactone (Aldactone) 25 mg PO DAILY [facility] Last Admin: 01/01/17 09:16 Dose: Not Given - Labs Labs: 01/01/17 08:00 01/01/17 08:00 PT 17.6 SECONDS (9.7-12.2) H 01/01/17 08:00 INR 1.5 01/01/17 08:00 APTT 32 SECONDS (21-34) 12/30/16 07:04 - Constitutional Appears: No Acute Distress, Cachectic, Chronically Ill - Head Exam Head Exam: NORMAL INSPECTION - Eye Exam Eye Exam: EOMI, PERRL - ENT Exam ENT Exam: Normal Oropharynx - Neck Exam Neck Exam: Normal Inspection - Respiratory Exam Respiratory Exam: Decreased Breath Sounds - GI/Abdominal Exam GI & Abdominal Exam: Soft, Hypoactive Bowel Sounds (S/P PEG.) - Extremities Exam Extremities Exam: absent: Calf Tenderness, Pedal Edema - Neurological Exam Neurological Exam: Awake - Psychiatric Exam Psychiatric exam: Flat Affect - Skin Skin Exam: Dry, Warm Assessment and Plan (1) Altered mental status Status: Acute (2) Sepsis Status: Acute (3) UTI (urinary tract infection) Status: Acute (4) CHF (congestive heart failure) Status: Chronic (5) History of B-cell lymphoma Status: Chronic (6) Parkinson disease Status: Chronic - Assessment and Plan (Free Text) Assessment: Assessment: FAILURE TO THRIVE/ANOREXIA S/P PEG 01/01/17 LEUKOPENIA ? IMMUNE VS DRUGS ? SINEMET, ? ABX S/P RESPIRATORY FAILURE / PNEUMONIA CHF WITH RIGHT-SIDED LARGE EFFUSION s/p RT.THORACENTESIS 12/20/16. S/P REPEAT THORACENTESIS 12/24/16 S/P GRAM-NEGATIVE SEPSIS +VE ESBL +VE E. COLI . source of sepsis most likely vs GI s/p CANDIDURIA HISTORY OF B CELL- LYMPHOMA ( IN REMISSION ) PARKINSONISM. Plan : DC IV Primaxin post-PEG insertion. f/u CBC with differential post PEG. PEG FEEDINGS TO BE STARTED 8 HOURS AFTER INSERTION PER GI -NOTED .
[2017-01-01] MEDS ORDERED: Sodium Chloride 0.9% 500 ML IV ONE ×2 (22:11→22:18)
--- NOTE | 2017-01-01 22:16 | PCM.RRT ---
GLASS CUT OFF TENDER Nurses Assessment - Situation Date: 01/01/17 Time GLASS CUT OFF TENDER was called: 21:58 GLASS CUT OFF TENDER Responder Arrival Time:: 21:59 GLASS CUT OFF TENDER Location:: Med/Oncology Room Number: 370A GLASS CUT OFF TENDER Reason for Call: Hypotension, Change in Mental Status GLASS CUT OFF TENDER Called By: RN - IV IV Inserted during GLASS CUT OFF TENDER?: No - Respiratory GLASS CUT OFF TENDER Delivery Method: Nasal Cannula @L/min (3) Oxygen Flow Rate: 3 Received Nebulizer Treatments: No Was the Patient Ventilated with Bag/Mask 100% O2?: No - Ventilator Settings FIO2 (% Oxygen): 30 - Diagnostic Test Ordered EKG: Yes Chest X-Ray: No CT Scan: No - Stat Labs Ordered GLASS CUT OFF TENDER Stat Labs Ordered: CBC, BMP, TROPONIN GLASS CUT OFF TENDER Other Labs Ordered: Electrolytes CPR started during GLASS CUT OFF TENDER?: No - [place] Coma Scale Coma Scale Eye Opening: To verbal stimuli Coma Scale Motor: Movement to pain stimulus Coma Scale Verbal: Confused/able to answer Coma Scale Total: 12 - Sepsis Screen Part 1 Sepsis Screen Part 1: Hypotensive - Time GLASS CUT OFF TENDER Ended Time GLASS CUT OFF TENDER Ended: 22:17 - Recommendations 5) GLASS CUT OFF TENDER Level of Care Recommendations: Remain in current setting Notifications: Attending Physician I.Reason for GLASS CUT OFF TENDER - A) Acute Change in Patient: (Select all that apply): Acute change in SBP below (<90) Subjective: GLASS CUT OFF TENDER called at for hypotension by nursing staff. Nursing reports patient at baseline confused/altered (Parkinson's Disease). Patient oriented to person only. She does not follow commands. Initially BP machine at bedside could not [employer] a blood pressure. Manual at bedside initially 112/64, but repeats 88/ 62. Patient denies acute compliants, but again patient mental status altered at baseline. - Neurological Status (Select all that apply): Alert, Verbal, Disoriented (baseline due to parkinsons dementia), Confused (baseline due to parkinsons dementia). absent: Oriented, Follows Commands - Respiratory Oxygen Delivery Method: Nasal Cannula @L/min (2L) - Constitutional Appears: No Acute Distress, Chronically Ill - Head Head Exam: ATRAUMATIC, NORMAL INSPECTION - Eyes Eye Exam: EOMI, Normal appearance. absent: Scleral icterus - Respiratory Exam Respiratory Exam: Decreased Breath Sounds. absent: Rales, Rhonchi, Wheezes - Cardiovascular Exam Cardiovascular Exam: Tachycardia, +S1, +S2 - GI/Abdominal Exam GI & Abdominal Exam: Soft, Normal Bowel Sounds. absent: Tenderness - Neurological Exam Neurological Exam: Alert, Altered. absent: Oriented x3 - Extremities Exam Extremities Exam: Normal Inspection. absent: Calf Tenderness, Pedal Edema Plan - Assessment of Findings&Treatment Plan Reviewed ECHO: EF ~30%, severe LV systolic dysfunction Plan: Spoke to PMD, Dr. De Leon - she recommends holding off on bolus for now, due to CHF. Also advises against Lasix as patient BP will bottom out. Ordered EKG: Sinus Tach (111 bpm), No acute ST/T wave changes, poor voltage STAT CBC, CMP, Mg , Phos, Troponin Vitals Q2H to monitor BP
[2017-01-01 22:45] LABS: BASO % 0.5 % (0.0-2.0); EOS % 0.7 % (0.0-4.0); HEMATOCRIT 39.7 % (34.0-47.0); LYMPH # 1.6 K/uL (1.0-4.3); MEAN CELL VOLUME 98.2 fL (81.0-99.0); MEAN CORPUSCULAR HEMOGLOBIN 31.4 pg (27.0-31.0); MEAN PLATELET VOLUME 10.2 fL (7.2-11.7); MONO # 0.4 K/uL (0.0-0.8); MONO % 11.7 % (0.0-10.0); NRBC % 0.6 % (0.0-2.0); RED CELL DISTRIBUTION WIDTH 25.5 % (11.5-14.5); WHITE BLOOD COUNT 3.8 K/uL (4.8-10.8)
[2017-01-01 22:51] LABS: CHLORIDE 104 mmol/L (98-107)
[2017-01-01 22:52] LABS: POTASSIUM 3.5 mmol/L (3.6-5.2); SODIUM 135 mmol/L (132-148)
[2017-01-01 22:54] LABS: AST/SGOT 28 U/L (14-36); BILIRUBIN,TOTAL 2.1 mg/dL (0.2-1.3); CARBON DIOXIDE 21 mmol/L (22-30); GFR AFRICAN-AMERICAN > 60
[2017-01-01 22:55] LABS: ALKALINE PHOSPHATASE 107 U/L (38-126); ALT/SGPT 33 U/L (9-52); BLOOD UREA NITROGEN 20 mg/dL (7-17); CALCIUM 8.3 mg/dl (8.6-10.4); GLUCOSE,RANDOM 90 mg/dL (65-105); MAGNESIUM 1.8 mg/dL (1.6-2.3); PHOSPHOROUS 3.2 mg/dL (2.5-4.5)
[2017-01-01] MEDS: Acetaminophen 650mg/20.3ml solution UD PEG PRN (23:01)
[2017-01-02 06:59] LABS: HEMATOCRIT 38.5 % (34.0-47.0); MEAN CELL VOLUME 97.1 fL (81.0-99.0); MEAN CORPUSCULAR HEMOGLOBIN 31.8 pg (27.0-31.0); MEAN CORPUSCULAR HGB CONC 32.7 g/dL (33.0-37.0); MEAN PLATELET VOLUME 10.7 fL (7.2-11.7); RED CELL DISTRIBUTION WIDTH 25.6 % (11.5-14.5); WHITE BLOOD COUNT 3.3 K/uL (4.8-10.8)
[2017-01-02 07:11] LABS: INR 1.7
[2017-01-02] MEDS: Pantoprazole 40 mg EC Tab PO SCH (10:17)
[2017-01-02] MEDS: Potassium Chloride 20 mEq ER Tab PO SCH (10:23)
--- NOTE | 2017-01-02 11:11 | CP.PCM.PN ---
Subjective - Date & Time of Evaluation Date of Evaluation: 01/02/17 Time of Evaluation: 11:09 - Subjective Subjective: No pain and PEG infusing well Spoke with family at bedside about bolus feeding options and ability to take food and meds po Objective - Vital Signs/Intake and Output Vital Signs (last 24 hours): Temp Pulse Resp BP Pulse Ox 97.4 F L 118 H 19 96/55 L 95 01/02/17 07:47 01/02/17 07:47 01/02/17 07:47 01/02/17 10:19 01/02/17 07:47 Intake and Output: 01/02/17 01/02/17 06:59 18:59 Intake Total 440 Balance 440 - Medications Medications: Current Medications Acetaminophen (Tylenol 650mg/20.3ml Solution Ud) 650 mg PEG Q6 PRN PRN Reason: Pain, moderate (4-7) Last Admin: 01/01/17 23:01 Dose: 650 mg Carbidopa/Levodopa (Sinemet) 1 tab PO QID [facility] Last Admin: 01/02/17 10:12 Dose: 1 tab Entacapone (Comtan) 200 mg PO ACBD [facility] Last Admin: 01/02/17 08:11 Dose: 200 mg Furosemide (Lasix) 20 mg IVP DAILY [facility] Last Admin: 01/02/17 10:19 Dose: Not Given Metoprolol Tartrate (Lopressor) 12.5 mg PO BID [facility] Last Admin: 01/02/17 10:17 Dose: Not Given Pantoprazole Sodium (Protonix Ec Tab) 40 mg PO DAILY [facility] Last Admin: 01/02/17 10:17 Dose: 40 mg Polyethylene Glycol (Miralax) 17 gm PO Q8H PRN PRN Reason: Constipation Potassium Chloride (K-Dur 20 Meq Er Tab) 40 meq PO DAILY [facility] Last Admin: 01/02/17 10:23 Dose: 40 meq Spironolactone (Aldactone) 25 mg PO DAILY [facility] Last Admin: 01/02/17 10:20 Dose: Not Given - Labs Labs: 01/02/17 06:48 01/01/17 22:40 PT 19.3 SECONDS (9.7-12.2) H 01/02/17 06:48 INR 1.7 01/02/17 06:48 APTT 32 SECONDS (21-34) 12/30/16 07:04 - Head Exam Head Exam: NORMAL INSPECTION - Eye Exam Eye Exam: EOMI, PERRL - Respiratory Exam Respiratory Exam: NORMAL BREATHING PATTERN - Cardiovascular Exam Cardiovascular Exam: REGULAR RHYTHM, +S1 - GI/Abdominal Exam GI & Abdominal Exam: Soft, Normal Bowel Sounds. absent: Tenderness Additional comments: GT site intact and infusing well. No leakage or bleeding. Assessment and Plan (1) Malnutrition Assessment & Plan: Advance feedings to meet needs and may switch to bolus with assistance of charge nurse. Able to take po meds and food as desired. Proper tube care Recall as needed, thank you. Status: Acute (2) Dysphagia Status: Acute (3) Parkinson disease Status: Chronic (4) Coagulopathy Status: Acute
--- NOTE | 2017-01-02 11:19 | CP.PCM.PN ---
Subjective - Date & Time of Evaluation Date of Evaluation: 01/02/17 Time of Evaluation: 11:10 - Subjective Subjective: Status post PEG. Patient is confused. , Tolerated the procedure very well. Tolerating trhe feeding so far. Urine culture is positive for VRE, sensitive to Tigecycline, and Linezolid. Call put in for DR. Prudence Lynn to order the antibiotic. Pt has to be isolated. Objective - Vital Signs/Intake and Output Vital Signs (last 24 hours): Temp Pulse Resp BP Pulse Ox 97.4 F L 118 H 19 96/55 L 95 01/02/17 07:47 01/02/17 07:47 01/02/17 07:47 01/02/17 10:19 01/02/17 07:47 Intake and Output: 01/02/17 01/02/17 06:59 18:59 Intake Total 440 Balance 440 - Medications Medications: Current Medications Acetaminophen (Tylenol 650mg/20.3ml Solution Ud) 650 mg PEG Q6 PRN PRN Reason: Pain, moderate (4-7) Last Admin: 01/01/17 23:01 Dose: 650 mg Carbidopa/Levodopa (Sinemet) 1 tab PO QID [facility] Last Admin: 01/02/17 10:12 Dose: 1 tab Entacapone (Comtan) 200 mg PO ACBD [facility] Last Admin: 01/02/17 08:11 Dose: 200 mg Furosemide (Lasix) 20 mg IVP DAILY [facility] Last Admin: 01/02/17 10:19 Dose: Not Given Metoprolol Tartrate (Lopressor) 12.5 mg PO BID [facility] Last Admin: 01/02/17 10:17 Dose: Not Given Pantoprazole Sodium (Protonix Ec Tab) 40 mg PO DAILY [facility] Last Admin: 01/02/17 10:17 Dose: 40 mg Polyethylene Glycol (Miralax) 17 gm PO Q8H PRN PRN Reason: Constipation Potassium Chloride (K-Dur 20 Meq Er Tab) 40 meq PO DAILY [facility] Last Admin: 01/02/17 10:23 Dose: 40 meq Spironolactone (Aldactone) 25 mg PO DAILY [facility] Last Admin: 01/02/17 10:20 Dose: Not Given - Labs Labs: 01/02/17 06:48 01/01/17 22:40 PT 19.3 SECONDS (9.7-12.2) H 01/02/17 06:48 INR 1.7 01/02/17 06:48 APTT 32 SECONDS (21-34) 12/30/16 07:04 - Constitutional Appears: No Acute Distress, Confused, Chronically Ill - Head Exam Head Exam: ATRAUMATIC, NORMAL INSPECTION, NORMOCEPHALIC - Eye Exam Eye Exam: Normal appearance, PERRL Pupil Exam: PERRL - ENT Exam ENT Exam: Mucous Membranes Dry - Neck Exam Neck Exam: Full ROM, Normal Inspection - Respiratory Exam Respiratory Exam: NORMAL BREATHING PATTERN - Cardiovascular Exam Cardiovascular Exam: Tachycardia, REGULAR RHYTHM, +S1, +S2 - GI/Abdominal Exam GI & Abdominal Exam: Soft - Rectal Exam Rectal Exam: Deferred - Extremities Exam Extremities Exam: Full ROM, Normal Inspection - Back Exam Back Exam: NORMAL INSPECTION - Neurological Exam Neurological Exam: Altered, Awake - Psychiatric Exam Psychiatric exam: Depressed - Skin Skin Exam: Dry, Intact, Warm Assessment and Plan (1) Altered mental status Status: Acute (2) Sepsis Status: Acute (3) UTI (urinary tract infection) Status: Acute (4) History of B-cell lymphoma Status: Chronic (5) Parkinson disease Status: Chronic (6) CHF (congestive heart failure) Status: Chronic (7) Congestive cardiomyopathy Status: Chronic (8) Pleural effusion Status: Acute (9) VRE infection (vancomycin resistant Enterococcus) Status: Acute (10) Infection due to ESBL-producing Escherichia coli Status: Acute - Assessment and Plan (Free Text) Plan: Status: Acute. Plan: Continue Tube Feeding. [place] inf disease to call in for the antibiotics for the VRE.
--- NOTE | 2017-01-02 11:23 | CARD ---
APPROVED REPORT EKG Measurement Heart [id number] <Conclusion> Sinus tachycardia Possible Anterior infarct, age undetermined Abnormal ECG
[2017-01-02] MEDS ORDERED: Tigecycline 100 MG in Dextrose 5% In Water 100 ML IVPB ONE (12:30)
[2017-01-02] MEDS: Acetaminophen 650mg/20.3ml solution UD PEG PRN (13:23)
--- NOTE | 2017-01-02 15:41 | CP.PCM.PN ---
Subjective - Date & Time of Evaluation Date of Evaluation: 01/02/17 Time of Evaluation: 11:20 - Subjective Subjective: Patient seen and examined. Status post PEG insertion and tolerating feeding Urine culture positive for VRE Still very weak and lethargic No shortness of breath Status post thoracentesis Objective - Vital Signs/Intake and Output Vital Signs (last 24 hours): Temp Pulse Resp BP Pulse Ox 97.4 F L 118 H 19 96/55 L 95 01/02/17 07:47 01/02/17 07:47 01/02/17 07:47 01/02/17 10:19 01/02/17 07:47 Intake and Output: 01/02/17 01/02/17 06:59 18:59 Intake Total 440 Balance 440 - Medications Medications: Current Medications Acetaminophen (Tylenol 650mg/20.3ml Solution Ud) 650 mg PEG Q6 PRN PRN Reason: Pain, moderate (4-7) Last Admin: 01/02/17 13:23 Dose: 650 mg Carbidopa/Levodopa (Sinemet) 1 tab PO QID [facility] Last Admin: 01/02/17 13:22 Dose: 1 tab Entacapone (Comtan) 200 mg PO ACBD [facility] Last Admin: 01/02/17 08:11 Dose: 200 mg Furosemide (Lasix) 20 mg IVP DAILY [facility] Last Admin: 01/02/17 10:19 Dose: Not Given Tigecycline 25 mg/ Dextrose 100 mls @ 100 mls/hr IVPB Q12 [facility] Metoprolol Tartrate (Lopressor) 12.5 mg PO BID [facility] Last Admin: 01/02/17 10:17 Dose: Not Given Pantoprazole Sodium (Protonix Ec Tab) 40 mg PO DAILY [facility] Last Admin: 01/02/17 10:17 Dose: 40 mg Polyethylene Glycol (Miralax) 17 gm PO Q8H PRN PRN Reason: Constipation Potassium Chloride (K-Dur 20 Meq Er Tab) 40 meq PO DAILY [facility] Last Admin: 01/02/17 10:23 Dose: 40 meq Spironolactone (Aldactone) 25 mg PO DAILY [facility] Last Admin: 01/02/17 10:20 Dose: Not Given - Labs Labs: 01/02/17 06:48 01/01/17 22:40 PT 19.3 SECONDS (9.7-12.2) H 01/02/17 06:48 INR 1.7 01/02/17 06:48 APTT 32 SECONDS (21-34) 12/30/16 07:04 - Head Exam Head Exam: ATRAUMATIC, NORMOCEPHALIC - Eye Exam Eye Exam: Normal appearance - ENT Exam ENT Exam: Mucous Membranes Moist - Neck Exam Neck Exam: Normal Inspection - Respiratory Exam Respiratory Exam: Rales - GI/Abdominal Exam GI & Abdominal Exam: Soft, Normal Bowel Sounds - Extremities Exam Extremities Exam: Normal Inspection - Neurological Exam Neurological Exam: Alert, Oriented x3 Assessment and Plan (1) Sepsis Assessment & Plan: Urine culture positive for VRE Antibiotics as per infectious disease Continue PEG feeding Follow-up if necessary Status: Acute (2) Parkinson disease Status: Chronic (3) Congestive cardiomyopathy Status: Chronic (4) History of B-cell lymphoma Status: Chronic
[2017-01-02] MEDS: Tigecycline 25 MG in Dextrose 5% In Water 100 ML IVPB SCH (21:31)
[2017-01-03] MEDS: Tigecycline 25 MG in Dextrose 5% In Water 100 ML IVPB SCH ×2 (10:41→21:37)
--- NOTE | 2017-01-03 10:52 | CP.PCM.PN ---
Subjective - Date & Time of Evaluation Date of Evaluation: 01/03/17 Time of Evaluation: 10:49 - Subjective Subjective: Asked to see patient due to possible leak around peg site with dressing "damp". No N/V and not given a po diet as recommended Objective - Vital Signs/Intake and Output Vital Signs (last 24 hours): Temp Pulse Resp BP Pulse Ox 98.4 F 105 H 21 96/59 L 97 01/03/17 07:51 01/03/17 09:30 01/03/17 07:51 01/03/17 09:30 01/03/17 09:30 Intake and Output: 01/03/17 01/03/17 06:59 18:59 Intake Total 570 Balance 570 - Medications Medications: Current Medications Acetaminophen (Tylenol 650mg/20.3ml Solution Ud) 650 mg PEG Q6 PRN PRN Reason: Pain, moderate (4-7) Last Admin: 01/02/17 13:23 Dose: 650 mg Carbidopa/Levodopa (Sinemet) 1 tab PO QID [facility] Last Admin: 01/02/17 21:32 Dose: 1 tab Entacapone (Comtan) 200 mg PO ACBD [facility] Last Admin: 01/03/17 08:17 Dose: 200 mg Tigecycline 25 mg/ Dextrose 100 mls @ 100 mls/hr IVPB Q12 [facility] Last Admin: 01/03/17 10:41 Dose: 100 mls/hr Metoprolol Tartrate (Lopressor) 12.5 mg PO BID [facility] Last Admin: 01/02/17 17:36 Dose: Not Given Pantoprazole Sodium (Protonix Ec Tab) 40 mg PO DAILY [facility] Last Admin: 01/02/17 10:17 Dose: 40 mg Polyethylene Glycol (Miralax) 17 gm PO Q8H PRN PRN Reason: Constipation Potassium Chloride (K-Dur 20 Meq Er Tab) 40 meq PO DAILY [facility] Last Admin: 01/02/17 10:23 Dose: 40 meq Spironolactone (Aldactone) 25 mg PO DAILY [facility] Last Admin: 01/02/17 10:20 Dose: Not Given - Labs Labs: 01/02/17 06:48 01/01/17 22:40 PT 19.3 SECONDS (9.7-12.2) H 01/02/17 06:48 INR 1.7 11/08/17 06:48 APTT 32 SECONDS (21-34) 12/30/16 07:04 - Constitutional Appears: No Acute Distress - Respiratory Exam Respiratory Exam: NORMAL BREATHING PATTERN - Cardiovascular Exam Cardiovascular Exam: REGULAR RHYTHM - GI/Abdominal Exam GI & Abdominal Exam: Soft, Normal Bowel Sounds. absent: Tenderness Additional comments: GT site intact without extravasation and bumper device appears to be tight (T- piece bumper was not included in the PEG kit utilized for some unknown reason) Assessment and Plan (1) Malnutrition Assessment & Plan: S/P PEG POD #2 and infusing well at reduced rate Needs to be given oral diet as tolerated Status: Acute (2) Dysphagia Status: Acute (3) Parkinson disease Status: Chronic (4) Coagulopathy Status: Resolved (5) PEG tube malfunction Assessment & Plan: Tube appears to be intact and no leak since rate was dropped. Unclear if perhaps connector was loose? Over flow due to overdistension of stomach with feedings and water? Continue lower rate and observe Begin po feedings as tolerated to decrease needs from GT. Will follow as needed. If leak continues with need a gastrograffin tube study in radiology but no need at present. Status: Acute
[2017-01-03] MEDS: Pantoprazole 40 mg EC Tab PO SCH (11:00)
--- NOTE | 2017-01-03 11:08 | CP.PCM.PN ---
Subjective - Date & Time of Evaluation Date of Evaluation: 01/03/17 Time of Evaluation: 11:05 - Subjective Subjective: Patient is afebrile. Weak and confused. Tolerating the tube feeding very well. patient started on tygesil yesterday foir VRE. Objective - Vital Signs/Intake and Output Vital Signs (last 24 hours): Temp Pulse Resp BP Pulse Ox 98.4 F 105 H 21 96/59 L 97 01/03/17 07:51 01/03/17 09:30 01/03/17 07:51 01/03/17 09:30 01/03/17 09:30 Intake and Output: 01/03/17 01/03/17 06:59 18:59 Intake Total 570 Balance 570 - Medications Medications: Current Medications Acetaminophen (Tylenol 650mg/20.3ml Solution Ud) 650 mg PEG Q6 PRN PRN Reason: Pain, moderate (4-7) Last Admin: 01/02/17 13:23 Dose: 650 mg Carbidopa/Levodopa (Sinemet) 1 tab PO QID [facility] Last Admin: 01/02/17 21:32 Dose: 1 tab Entacapone (Comtan) 200 mg PO ACBD [facility] Last Admin: 01/03/17 08:17 Dose: 200 mg Tigecycline 25 mg/ Dextrose 100 mls @ 100 mls/hr IVPB Q12 [facility] Last Admin: 01/03/17 10:41 Dose: 100 mls/hr Metoprolol Tartrate (Lopressor) 12.5 mg PO BID [facility] Last Admin: 01/02/17 17:36 Dose: Not Given Pantoprazole Sodium (Protonix Ec Tab) 40 mg PO DAILY [facility] Last Admin: 01/02/17 10:17 Dose: 40 mg Polyethylene Glycol (Miralax) 17 gm PO Q8H PRN PRN Reason: Constipation Potassium Chloride (K-Dur 20 Meq Er Tab) 40 meq PO DAILY [facility] Last Admin: 01/02/17 10:23 Dose: 40 meq Spironolactone (Aldactone) 25 mg PO DAILY [facility] Last Admin: 01/02/17 10:20 Dose: Not Given - Labs Labs: 01/02/17 06:48 01/01/17 22:40 PT 19.3 SECONDS (9.7-12.2) H 01/02/17 06:48 INR 1.7 01/02/17 06:48 APTT 32 SECONDS (21-34) 12/30/16 07:04 - Constitutional Appears: No Acute Distress, Confused, Chronically Ill - Head Exam Head Exam: ATRAUMATIC, NORMAL INSPECTION, NORMOCEPHALIC - Eye Exam Eye Exam: Normal appearance Pupil Exam: PERRL - ENT Exam ENT Exam: Mucous Membranes Dry - Neck Exam Neck Exam: Full ROM - Respiratory Exam Respiratory Exam: Clear to Ausculation Bilateral, NORMAL BREATHING PATTERN - Cardiovascular Exam Cardiovascular Exam: Tachycardia, +S1, +S2 - GI/Abdominal Exam GI & Abdominal Exam: Soft - Rectal Exam Rectal Exam: Deferred - Extremities Exam Extremities Exam: Normal Inspection - Back Exam Back Exam: Full ROM - Neurological Exam Neurological Exam: Altered, Awake - Psychiatric Exam Psychiatric exam: Depressed - Skin Skin Exam: Dry, Intact, Warm Assessment and Plan (1) Altered mental status Status: Acute (2) Sepsis Status: Acute (3) UTI (urinary tract infection) Status: Acute (4) History of B-cell lymphoma Status: Chronic (5) Parkinson disease Status: Chronic (6) CHF (congestive heart failure) Status: Chronic (7) Congestive cardiomyopathy Status: Chronic (8) Pleural effusion Status: Acute (9) VRE infection (vancomycin resistant Enterococcus) Status: Acute (10) Infection due to ESBL-producing Escherichia coli Status: Acute - Assessment and Plan (Free Text) Plan: Status---Acute plan: Continue IV tygasil. Continue tube feeding.
[2017-01-03] MEDS: Potassium Chloride 20 mEq ER Tab PO SCH (11:14)
[2017-01-03] MEDS ORDERED: Potassium Chloride 20 mEq/15 ml LIQ UD PO SCH (11:15)
[2017-01-03] MEDS: Acetaminophen 650mg/20.3ml solution UD PEG PRN (13:33)
[2017-01-03 14:43] LABS: BASO % 0.7 % (0.0-2.0); EOS % 0.4 % (0.0-4.0); HEMATOCRIT 41.1 % (34.0-47.0); LYMPH # 1.6 K/uL (1.0-4.3); LYMPH % 33.9 % (20.0-40.0); MEAN CELL VOLUME 98.4 fL (81.0-99.0); MEAN CORPUSCULAR HEMOGLOBIN 31.4 pg (27.0-31.0); MEAN CORPUSCULAR HGB CONC 31.9 g/dL (33.0-37.0); MEAN PLATELET VOLUME 10.5 fL (7.2-11.7); MONO # 0.5 K/uL (0.0-0.8); MONO % 10.1 % (0.0-10.0); NRBC % 0.4 % (0.0-2.0); RED CELL DISTRIBUTION WIDTH 25.5 % (11.5-14.5); WHITE BLOOD COUNT 4.7 K/uL (4.8-10.8)
[2017-01-03 14:44] LABS: CHLORIDE 104 mmol/L (98-107); POTASSIUM 5.3 mmol/L (3.6-5.2); SODIUM 137 mmol/L (132-148)
[2017-01-03 14:47] LABS: BLOOD UREA NITROGEN 28 mg/dL (7-17); CARBON DIOXIDE 19 mmol/L (22-30); GFR AFRICAN-AMERICAN > 60; GLUCOSE,RANDOM 126 mg/dL (65-105)
--- NOTE | 2017-01-03 14:47 | RAD ---
Chest x-ray single frontal view History: Shortness of breath. Comparison: 12/31/2016 Findings: Lines and tubes in stable position. Persistent moderate loculated right pleural effusion. Patchy airspace opacification in the right mid to lower lung zone. Moderate venous congestion. Biapical pleural thickening. Right hilar prominence. Cardiomegaly. Tortuous ectatic aorta. Degenerative changes in the spine with paravertebral osteophytes. Impression: Lines and tubes in stable position. Persistent moderate loculated right pleural effusion. Patchy airspace opacification in the right mid to lower lung zone. Moderate venous congestion. Biapical pleural thickening. Right hilar prominence. Cardiomegaly. Tortuous ectatic aorta. Degenerative changes in the spine with paravertebral osteophytes.
[2017-01-03 14:48] LABS: CALCIUM 8.1 mg/dl (8.6-10.4)
--- NOTE | 2017-01-03 21:59 | CP.PCM.PN ---
Subjective - Date & Time of Evaluation Date of Evaluation: 01/03/17 Time of Evaluation: 21:59 - Subjective Subjective: AFEBRILE BP 99/55 S/P PEG INSERTION TOLERATING FEEDINGS PATIENT WITH VRE IN URINE. ABX ADJUSTED TO IV TYGACIL Objective - Vital Signs/Intake and Output Vital Signs (last 24 hours): Temp Pulse Resp BP Pulse Ox 98.6 F 99 H 20 90/55 L 100 01/03/17 21:03 01/03/17 21:03 01/03/17 21:03 01/03/17 21:03 01/03/17 15:00 Intake and Output: 01/03/17 01/04/17 18:59 06:59 Intake Total 430 Balance 430 - Medications Medications: Current Medications Acetaminophen (Tylenol 650mg/20.3ml Solution Ud) 650 mg PEG Q6 PRN PRN Reason: Pain, moderate (4-7) Last Admin: 01/03/17 13:33 Dose: 650 mg Carbidopa/Levodopa (Sinemet) 1 tab PO QID [facility] Last Admin: 01/03/17 21:37 Dose: 1 tab Entacapone (Comtan) 200 mg PO ACBD [facility] Last Admin: 01/03/17 17:15 Dose: 200 mg Tigecycline 25 mg/ Dextrose 100 mls @ 100 mls/hr IVPB Q12 [facility] Last Admin: 01/03/17 21:37 Dose: 100 mls/hr Metoprolol Tartrate (Lopressor) 12.5 mg PO BID [facility] Last Admin: 01/03/17 17:15 Dose: Not Given Pantoprazole Sodium (Protonix Ec Tab) 40 mg PO DAILY [facility] Last Admin: 01/03/17 11:00 Dose: 40 mg Polyethylene Glycol (Miralax) 17 gm PO Q8H PRN PRN Reason: Constipation Spironolactone (Aldactone) 25 mg PO DAILY [facility] Last Admin: 01/03/17 11:00 Dose: Not Given - Labs Labs: 01/03/17 14:29 01/03/17 14:29 PT 19.3 SECONDS (9.7-12.2) H 01/02/17 06:48 INR 1.7 01/02/17 06:48 APTT 32 SECONDS (21-34) 12/30/16 07:04 - Constitutional Appears: No Acute Distress, Cachectic, Chronically Ill - Eye Exam Eye Exam: PERRL - ENT Exam ENT Exam: Normal Oropharynx - Neck Exam Neck Exam: Normal Inspection - Respiratory Exam Respiratory Exam: Decreased Breath Sounds, Rhonchi - Cardiovascular Exam Cardiovascular Exam: REGULAR RHYTHM, +S1, +S2 - GI/Abdominal Exam GI & Abdominal Exam: Soft, Normal Bowel Sounds - Extremities Exam Extremities Exam: absent: Calf Tenderness, Pedal Edema - Neurological Exam Neurological Exam: Awake - Psychiatric Exam Psychiatric exam: Flat Affect - Skin Skin Exam: Dry, Warm Assessment and Plan (1) Altered mental status Status: Acute (2) Sepsis Status: Acute (3) UTI (urinary tract infection) Status: Acute (4) CHF (congestive heart failure) Status: Chronic (5) History of B-cell lymphoma Status: Chronic (6) Parkinson disease Status: Chronic - Assessment and Plan (Free Text) Assessment: Assessment: SEPSIS -UROSEPSIS RECURRENT +VE 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 IMMUNE VS DRUGS ? SINEMET, ? ABX S/P RESPIRATORY FAILURE / PNEUMONIA CHF WITH RIGHT-SIDED LARGE EFFUSION S/P GRAM-NEGATIVE SEPSIS +VE ESBL +VE E. COLI . HISTORY OF B CELL- LYMPHOMA ( IN REMISSION ) PARKINSONISM. Plan : PT ON IV TYGACIL 25MG IV Q 12HRLY( STARTED 01/01 AFTER A LOADING DOSE.) PT WILL NEED TOTAL OF 10 DAYS. F/U LFTS F/U URINE CULTURES ON SATURDAY CONTACT PRECAUTIONS. FEEDINGS PER GI.. PEG CARE PER GI. .
[2017-01-04 06:52] LABS: BLOOD UREA NITROGEN 31 mg/dL (7-17); CALCIUM 8.3 mg/dl (8.6-10.4); CARBON DIOXIDE 22 mmol/L (22-30); CHLORIDE 105 mmol/L (98-107); GFR AFRICAN-AMERICAN > 60; GLUCOSE,RANDOM 103 mg/dL (65-105); POTASSIUM 4.8 mmol/L (3.6-5.2); SODIUM 140 mmol/L (132-148)
--- NOTE | 2017-01-04 10:29 | CP.PCM.PN ---
Subjective - Date & Time of Evaluation Date of Evaluation: 01/04/17 Time of Evaluation: 10:25 - Subjective Subjective: patient is not eating again today. On tube feeding at 35 cc per hourly. Will increase it to q 4 hours total of 250 cc q 4 h X 4 times daily. to make a total of 1000 cc a day. patient has no SOB. More alert today. Objective - Vital Signs/Intake and Output Vital Signs (last 24 hours): Temp Pulse Resp BP Pulse Ox 98.2 F 119 H 21 90/59 L 100 01/04/17 07:36 01/04/17 07:36 01/04/17 07:36 01/04/17 07:36 01/04/17 07:36 Intake and Output: 01/04/17 01/04/17 06:59 18:59 Intake Total 770 Balance 770 - Medications Medications: Current Medications Acetaminophen (Tylenol 650mg/20.3ml Solution Ud) 650 mg PEG Q6 PRN PRN Reason: Pain, moderate (4-7) Last Admin: 01/03/17 13:33 Dose: 650 mg Carbidopa/Levodopa (Sinemet) 1 tab PO QID [facility] Last Admin: 01/03/17 21:37 Dose: 1 tab Entacapone (Comtan) 200 mg PO ACBD [facility] Last Admin: 01/04/17 08:07 Dose: 200 mg Tigecycline 25 mg/ Dextrose 100 mls @ 100 mls/hr IVPB Q12 [facility] Last Admin: 01/03/17 21:37 Dose: 100 mls/hr Metoprolol Tartrate (Lopressor) 12.5 mg PO BID [facility] Last Admin: 01/03/17 17:15 Dose: Not Given Pantoprazole Sodium (Protonix Ec Tab) 40 mg PO DAILY [facility] Last Admin: 01/03/17 11:00 Dose: 40 mg Polyethylene Glycol (Miralax) 17 gm PO Q8H PRN PRN Reason: Constipation Spironolactone (Aldactone) 25 mg PO DAILY [facility] Last Admin: 01/03/17 11:00 Dose: Not Given - Labs Labs: 01/03/17 14:29 01/04/17 06:31 PT 19.3 SECONDS (9.7-12.2) H 01/02/17 06:48 INR 1.7 01/02/17 06:48 APTT 32 SECONDS (21-34) 12/30/16 07:04 - Constitutional Appears: No Acute Distress, Confused, Chronically Ill - Head Exam Head Exam: ATRAUMATIC, NORMAL INSPECTION, NORMOCEPHALIC - Eye Exam Eye Exam: Normal appearance Pupil Exam: PERRL - ENT Exam ENT Exam: Mucous Membranes Moist - Neck Exam Neck Exam: Full ROM - Respiratory Exam Respiratory Exam: Clear to Ausculation Bilateral, NORMAL BREATHING PATTERN - Cardiovascular Exam Cardiovascular Exam: Tachycardia, REGULAR RHYTHM, +S1, +S2 - GI/Abdominal Exam GI & Abdominal Exam: Soft, Normal Bowel Sounds - Rectal Exam Rectal Exam: Deferred - Extremities Exam Extremities Exam: Normal Inspection - Back Exam Back Exam: Full ROM, NORMAL INSPECTION - Neurological Exam Neurological Exam: Altered, Awake - Psychiatric Exam Psychiatric exam: Depressed - Skin Skin Exam: Dry, Intact, Warm Assessment and Plan (1) Altered mental status Status: Acute (2) Sepsis Status: Acute (3) UTI (urinary tract infection) Status: Acute (4) History of B-cell lymphoma Status: Chronic (5) Parkinson disease Status: Chronic (6) CHF (congestive heart failure) Status: Chronic (7) Congestive cardiomyopathy Status: Chronic (8) Pleural effusion Status: Acute (9) VRE infection (vancomycin resistant Enterococcus) Status: Acute (10) Infection due to ESBL-producing Escherichia coli Status: Acute - Assessment and Plan (Free Text) Plan: Plan: Continue Tygasil for 10 days for the VRE Continue the tube feeding. Continue Sinemet, Comtan for the parkinsons. Continue Lasix, spironolactone amd metoprolol if her BP is 100 systolic and above.
[2017-01-04] MEDS: Tigecycline 25 MG in Dextrose 5% In Water 100 ML IVPB SCH ×2 (10:57→21:21)
[2017-01-04 11:09] LABS: BILIRUBIN,DIRECT 1.9 mg/dL (0.0-0.4); BILIRUBIN,TOTAL 2.5 mg/dL (0.2-1.3)
[2017-01-04 11:10] LABS: TOTAL PROTEIN 5.7 g/dL (6.3-8.3)
[2017-01-04] MEDS: Pantoprazole 40 mg EC Tab PO SCH (11:37)
--- NOTE | 2017-01-04 14:15 | CP.PCM.PN ---
Subjective - Date & Time of Evaluation Date of Evaluation: 01/04/17 Time of Evaluation: 14:14 - Subjective Subjective: Tolerating feedings but not eating. No new leakage reported Objective - Vital Signs/Intake and Output Vital Signs (last 24 hours): Temp Pulse Resp BP Pulse Ox 98.2 F 119 H 21 90/59 L 100 01/04/17 07:36 01/04/17 07:36 01/04/17 07:36 01/04/17 07:36 01/04/17 07:36 Intake and Output: 01/04/17 01/04/17 06:59 18:59 Intake Total 770 Balance 770 - Medications Medications: Current Medications Acetaminophen (Tylenol 650mg/20.3ml Solution Ud) 650 mg PEG Q6 PRN PRN Reason: Pain, moderate (4-7) Last Admin: 01/03/17 13:33 Dose: 650 mg Carbidopa/Levodopa (Sinemet) 1 tab PO QID [facility] Last Admin: 01/04/17 10:59 Dose: 1 tab Entacapone (Comtan) 200 mg PO ACBD [facility] Last Admin: 01/04/17 08:07 Dose: 200 mg Tigecycline 25 mg/ Dextrose 100 mls @ 100 mls/hr IVPB Q12 [facility] Last Admin: 01/04/17 10:57 Dose: 100 mls/hr Metoprolol Tartrate (Lopressor) 12.5 mg PO BID [facility] Last Admin: 01/04/17 11:37 Dose: Not Given Pantoprazole Sodium (Protonix Ec Tab) 40 mg PO DAILY [facility] Last Admin: 01/04/17 11:37 Dose: 40 mg Polyethylene Glycol (Miralax) 17 gm PO Q8H PRN PRN Reason: Constipation Spironolactone (Aldactone) 25 mg PO DAILY [facility] Last Admin: 01/04/17 11:38 Dose: Not Given - Labs Labs: 01/03/17 14:29 01/04/17 06:31 PT 19.3 SECONDS (9.7-12.2) H 01/02/17 06:48 INR 1.7 01/02/17 06:48 APTT 32 SECONDS (21-34) 12/30/16 07:04 - Respiratory Exam Respiratory Exam: NORMAL BREATHING PATTERN - Cardiovascular Exam Cardiovascular Exam: REGULAR RHYTHM - GI/Abdominal Exam GI & Abdominal Exam: Soft, Normal Bowel Sounds. absent: Tenderness Additional comments: GT intact and infusing. Dressing dry. Assessment and Plan (1) Malnutrition Assessment & Plan: Advance feedings to meet needs. Limit volume of flushes to prevent over- distension. Tube appears to be functioning well. No need for tube study at this time. Status: Acute (2) Dysphagia Status: Acute (3) Parkinson disease Status: Chronic (4) Coagulopathy Status: Resolved (5) PEG tube malfunction Assessment & Plan: as above. Status: Acute
--- NOTE | 2017-01-04 23:30 | CP.PCM.PN ---
Subjective - Date & Time of Evaluation Date of Evaluation: 01/04/17 Time of Evaluation: 23:30 - Subjective Subjective: AFEBRILE. WEAK, GT FUNCTIONING. WBC 4.7 BETTER H/H STABLE LFTS T.BILI 2.5 / TRANSAMINITIS INCREASING ? ABX /CONGESTION LIVER CASE DISCUSSED WITH DIRECTOR EXPORT. MS PITT REPEAT UA/URINE CULTURE CLEAN CATCH STAT . F/U LFTS AND CBC IN AM ON IV TYGACIL FOR NOW Objective - Vital Signs/Intake and Output Vital Signs (last 24 hours): Temp Pulse Resp BP Pulse Ox 97.8 F 119 H 20 95/60 L 96 01/04/17 23:21 01/04/17 23:21 01/04/17 23:21 01/04/17 23:21 01/04/17 23:21 Intake and Output: 01/04/17 01/05/17 18:59 06:59 Intake Total 450 Balance 450 - Medications Medications: Current Medications Acetaminophen (Tylenol 650mg/20.3ml Solution Ud) 650 mg PEG Q6 PRN PRN Reason: Pain, moderate (4-7) Last Admin: 01/03/17 13:33 Dose: 650 mg Carbidopa/Levodopa (Sinemet) 1 tab PO QID [facility] Last Admin: 01/04/17 21:21 Dose: 1 tab Entacapone (Comtan) 200 mg PO ACBD [facility] Last Admin: 01/04/17 17:08 Dose: 200 mg Tigecycline 25 mg/ Dextrose 100 mls @ 100 mls/hr IVPB Q12 [facility] Last Admin: 01/04/17 21:21 Dose: 100 mls/hr Metoprolol Tartrate (Lopressor) 12.5 mg PO BID [facility] Last Admin: 01/04/17 18:00 Dose: Not Given Pantoprazole Sodium (Protonix Ec Tab) 40 mg PO DAILY [facility] Last Admin: 01/04/17 11:37 Dose: 40 mg Polyethylene Glycol (Miralax) 17 gm PO Q8H PRN PRN Reason: Constipation Spironolactone (Aldactone) 25 mg PO DAILY [facility] Last Admin: 01/04/17 11:38 Dose: Not Given - Labs Labs: 01/03/17 14:29 01/04/17 06:31 PT 19.3 SECONDS (9.7-12.2) H 01/02/17 06:48 INR 1.7 01/02/17 06:48 APTT 32 SECONDS (21-34) 12/30/16 07:04 - Constitutional Appears: No Acute Distress, Cachectic, Chronically Ill - Eye Exam Eye Exam: PERRL, Scleral icterus - ENT Exam ENT Exam: Mucous Membranes Moist - Neck Exam Neck Exam: Normal Inspection - Respiratory Exam Respiratory Exam: Decreased Breath Sounds (BASES) - Cardiovascular Exam Cardiovascular Exam: Tachycardia, +S1, +S2 - GI/Abdominal Exam GI & Abdominal Exam: Soft, Normal Bowel Sounds - Extremities Exam Extremities Exam: absent: Calf Tenderness, Pedal Edema - Neurological Exam Neurological Exam: Awake - Psychiatric Exam Psychiatric exam: Flat Affect - Skin Skin Exam: Normal Color Assessment and Plan (1) Altered mental status Status: Acute (2) Sepsis Status: Acute (3) UTI (urinary tract infection) Status: Acute (4) CHF (congestive heart failure) Status: Chronic (5) History of B-cell lymphoma Status: Chronic (6) Parkinson disease Status: Chronic - Assessment and Plan (Free Text) Assessment: SEPSIS -UROSEPSIS RECURRENT +VE 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 IMMUNE VS DRUGS ? SINEMET, ? ABX S/P RESPIRATORY FAILURE / PNEUMONIA CHF WITH RIGHT-SIDED LARGE EFFUSION S/P GRAM-NEGATIVE SEPSIS +VE ESBL +VE E. COLI . HISTORY OF B CELL- LYMPHOMA ( IN REMISSION ) PARKINSONISM. Plan : PT ON IV TYGACIL 25MG IV Q 12HRLY( STARTED 01/01 AFTER A LOADING DOSE.) F/U LFTS F/U URINE CULTURES CLEAN CATCH. CONTACT PRECAUTIONS. PER PMD AND CONSULTANTS.
[2017-01-05 07:59] LABS: CHLORIDE 105 mmol/L (98-107); POTASSIUM 4.3 mmol/L (3.6-5.2); SODIUM 138 mmol/L (132-148)
[2017-01-05 08:02] LABS: ALB/GLOB RATIO 1.1 (1.0-2.1); ALKALINE PHOSPHATASE 281 U/L (38-126); ALT/SGPT 54 U/L (9-52); AST/SGOT 102 U/L (14-36); BLOOD UREA NITROGEN 37 mg/dL (7-17); CARBON DIOXIDE 21 mmol/L (22-30); GFR AFRICAN-AMERICAN > 60; GLUCOSE,RANDOM 93 mg/dL (65-105); TOTAL PROTEIN 5.7 g/dL (6.3-8.3)
[2017-01-05 08:03] LABS: CALCIUM 8.3 mg/dl (8.6-10.4)
--- NOTE | 2017-01-05 08:04 | CP.PCM.PN ---
Subjective - Date & Time of Evaluation Date of Evaluation: 01/05/17 Time of Evaluation: 07:00 - Subjective Subjective: patient is very confused today. Will not allow for a staight cath to do a urine culture. Tolerating the bolius of of 20 cc of tube feeding q 4 hours X 4 . Objective - Vital Signs/Intake and Output Vital Signs (last 24 hours): Temp Pulse Resp BP Pulse Ox 97.8 F 119 H 20 95/60 L 96 01/04/17 23:21 01/04/17 23:21 01/04/17 23:21 01/04/17 23:21 01/04/17 23:21 Intake and Output: 01/05/17 01/05/17 06:59 18:59 Intake Total 800 Balance 800 - Medications Medications: Current Medications Acetaminophen (Tylenol 650mg/20.3ml Solution Ud) 650 mg PEG Q6 PRN PRN Reason: Pain, moderate (4-7) Last Admin: 01/03/17 13:33 Dose: 650 mg Carbidopa/Levodopa (Sinemet) 1 tab PO QID [facility] Last Admin: 01/04/17 21:21 Dose: 1 tab Entacapone (Comtan) 200 mg PO ACBD [facility] Last Admin: 01/04/17 17:08 Dose: 200 mg Tigecycline 25 mg/ Dextrose 100 mls @ 100 mls/hr IVPB Q12 [facility] Last Admin: 01/04/17 21:21 Dose: 100 mls/hr Metoprolol Tartrate (Lopressor) 12.5 mg PO BID [facility] Last Admin: 01/04/17 18:00 Dose: Not Given Pantoprazole Sodium (Protonix Ec Tab) 40 mg PO DAILY [facility] Last Admin: 01/04/17 11:37 Dose: 40 mg Polyethylene Glycol (Miralax) 17 gm PO Q8H PRN PRN Reason: Constipation Spironolactone (Aldactone) 25 mg PO DAILY [facility] Last Admin: 01/04/17 11:38 Dose: Not Given - Labs Labs: 01/03/17 14:29 01/05/17 07:38 PT 19.3 SECONDS (9.7-12.2) H 01/02/17 06:48 INR 1.7 01/02/17 06:48 APTT 32 SECONDS (21-34) 12/30/16 07:04 - Constitutional Appears: No Acute Distress, Confused, Chronically Ill - Head Exam Head Exam: ATRAUMATIC, NORMAL INSPECTION, NORMOCEPHALIC - Eye Exam Pupil Exam: PERRL - ENT Exam ENT Exam: Mucous Membranes Dry - Neck Exam Neck Exam: Tenderness - Respiratory Exam Respiratory Exam: Clear to Ausculation Bilateral, NORMAL BREATHING PATTERN - Cardiovascular Exam Cardiovascular Exam: Tachycardia, REGULAR RHYTHM, +S1, +S2 - GI/Abdominal Exam GI & Abdominal Exam: Soft - Rectal Exam Rectal Exam: Deferred - Extremities Exam Extremities Exam: Full ROM, Normal Inspection - Back Exam Back Exam: NORMAL INSPECTION - Neurological Exam Neurological Exam: Altered - Skin Skin Exam: Dry, Intact, Warm Assessment and Plan (1) Altered mental status Status: Acute (2) Sepsis Status: Acute (3) UTI (urinary tract infection) Status: Acute (4) History of B-cell lymphoma Status: Chronic (5) Parkinson disease Status: Chronic (6) CHF (congestive heart failure) Status: Chronic (7) Congestive cardiomyopathy Status: Chronic (8) Pleural effusion Status: Acute (9) 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 Continue tube feeding. Supportive care.
[2017-01-05 08:16] LABS: BASO % 0.2 % (0.0-2.0); EOS % 0.2 % (0.0-4.0); HEMATOCRIT 37.5 % (34.0-47.0); LYMPH # 1.1 K/uL (1.0-4.3); MEAN CELL VOLUME 97.2 fL (81.0-99.0); MEAN CORPUSCULAR HEMOGLOBIN 32.3 pg (27.0-31.0); MEAN CORPUSCULAR HGB CONC 33.3 g/dL (33.0-37.0); MEAN PLATELET VOLUME 11.1 fL (7.2-11.7); MONO # 0.6 K/uL (0.0-0.8); MONO % 10.7 % (0.0-10.0); NRBC % 0.2 % (0.0-2.0); RED CELL DISTRIBUTION WIDTH 25.2 % (11.5-14.5); WHITE BLOOD COUNT 5.5 K/uL (4.8-10.8)
--- NOTE | 2017-01-05 08:33 | CP.PCM.PN ---
Subjective - Date & Time of Evaluation Date of Evaluation: 01/05/17 Time of Evaluation: 08:31 - Subjective Subjective: confused today, tolerating tube feedings thus far by bolus technique Objective - Vital Signs/Intake and Output Vital Signs (last 24 hours): Temp Pulse Resp BP Pulse Ox 97.6 F 113 H 20 93/60 L 100 01/05/17 08:00 01/05/17 08:00 01/05/17 08:00 01/05/17 08:00 01/05/17 08:00 Intake and Output: 01/05/17 01/05/17 06:59 18:59 Intake Total 800 Balance 800 - Medications Medications: Current Medications Acetaminophen (Tylenol 650mg/20.3ml Solution Ud) 650 mg PEG Q6 PRN PRN Reason: Pain, moderate (4-7) Last Admin: 01/03/17 13:33 Dose: 650 mg Carbidopa/Levodopa (Sinemet) 1 tab PO QID [facility] Last Admin: 01/04/17 21:21 Dose: 1 tab Entacapone (Comtan) 200 mg PO ACBD [facility] Last Admin: 01/05/17 08:03 Dose: 200 mg Tigecycline 25 mg/ Dextrose 100 mls @ 100 mls/hr IVPB Q12 [facility] Last Admin: 01/04/17 21:21 Dose: 100 mls/hr Metoprolol Tartrate (Lopressor) 12.5 mg PO BID [facility] Last Admin: 01/04/17 18:00 Dose: Not Given Pantoprazole Sodium (Protonix Ec Tab) 40 mg PO DAILY [facility] Last Admin: 01/04/17 11:37 Dose: 40 mg Polyethylene Glycol (Miralax) 17 gm PO Q8H PRN PRN Reason: Constipation Spironolactone (Aldactone) 25 mg PO DAILY [facility] Last Admin: 01/04/17 11:38 Dose: Not Given - Labs Labs: 01/05/17 07:38 01/05/17 07:38 PT 19.3 SECONDS (9.7-12.2) H 01/02/17 06:48 INR 1.7 01/02/17 06:48 APTT 32 SECONDS (21-34) 12/30/16 07:04 - Constitutional Appears: No Acute Distress - Head Exam Head Exam: ATRAUMATIC, NORMOCEPHALIC - Respiratory Exam Respiratory Exam: NORMAL BREATHING PATTERN - Cardiovascular Exam Cardiovascular Exam: REGULAR RHYTHM - GI/Abdominal Exam GI & Abdominal Exam: Soft, Normal Bowel Sounds. absent: Tenderness Additional comments: GT intact Assessment and Plan (1) Malnutrition Assessment & Plan: Advance feedings to 250cc (one can) four times daily. Give free water at separate time from feedings to decrease gastric distension and aspiration risk. Encourage po intake Status: Acute (2) Dysphagia Status: Acute (3) Parkinson disease Status: Chronic (4) Coagulopathy Status: Resolved (5) PEG tube malfunction Status: Ruled-out
[2017-01-05] MEDS: Pantoprazole 40 mg EC Tab PO SCH (10:52)
[2017-01-05] MEDS: Tigecycline 25 MG in Dextrose 5% In Water 100 ML IVPB SCH (10:53)
--- NOTE | 2017-01-05 22:26 | CP.PCM.PN ---
Subjective - Date & Time of Evaluation Date of Evaluation: 01/05/17 Time of Evaluation: 22:26 - Subjective Subjective: AFEBRILE , TACHCARDIC. CLINICALLY SAME LABS NOTED . CASE DISCUSSED W CREDIT RISK MODELER MS PITT. DC IV TYGACIL . F/U LFT ON SATURDAY. UA/AND URINE CULTURE REPEAT TODAY . CASE DISCUSSED W ATTENDING DR BANDA. Objective - Vital Signs/Intake and Output Vital Signs (last 24 hours): Temp Pulse Resp BP Pulse Ox 97.4 F L 103 H 22 90/61 L 100 01/05/17 15:15 01/05/17 15:15 01/05/17 15:15 01/05/17 15:15 01/05/17 15:15 Intake and Output: 01/05/17 01/06/17 18:59 06:59 Intake Total 800 Balance 800 - Medications Medications: Current Medications Acetaminophen (Tylenol 650mg/20.3ml Solution Ud) 650 mg PEG Q6 PRN PRN Reason: Pain, moderate (4-7) Last Admin: 01/03/17 13:33 Dose: 650 mg Carbidopa/Levodopa (Sinemet) 1 tab PO QID [facility] Last Admin: 01/05/17 21:20 Dose: 1 tab Entacapone (Comtan) 200 mg PO ACBD [facility] Last Admin: 01/05/17 17:29 Dose: 200 mg Metoprolol Tartrate (Lopressor) 12.5 mg PO BID [facility] Last Admin: 01/05/17 17:30 Dose: Not Given Pantoprazole Sodium (Protonix Ec Tab) 40 mg PO DAILY [facility] Last Admin: 01/05/17 10:52 Dose: 40 mg Polyethylene Glycol (Miralax) 17 gm PO Q8H PRN PRN Reason: Constipation Spironolactone (Aldactone) 25 mg PO DAILY [facility] Last Admin: 01/05/17 10:50 Dose: Not Given - Labs Labs: 01/05/17 07:38 01/05/17 07:38 PT 19.3 SECONDS (9.7-12.2) H 01/02/17 06:48 INR 1.7 01/02/17 06:48 APTT 32 SECONDS (21-34) 12/30/16 07:04 - Constitutional Appears: No Acute Distress, Cachectic, Chronically Ill - Eye Exam Eye Exam: EOMI, Scleral icterus - ENT Exam ENT Exam: Normal Oropharynx - Respiratory Exam Respiratory Exam: Decreased Breath Sounds - Cardiovascular Exam Cardiovascular Exam: Tachycardia, +S1, +S2 - GI/Abdominal Exam GI & Abdominal Exam: Soft, Normal Bowel Sounds (PEG IN PLACE.) - Extremities Exam Extremities Exam: absent: Calf Tenderness, Pedal Edema - Neurological Exam Neurological Exam: Awake - Skin Skin Exam: Dry Assessment and Plan (1) Altered mental status Status: Acute (2) Sepsis Status: Acute (3) UTI (urinary tract infection) Status: Acute (4) CHF (congestive heart failure) Status: Chronic (5) History of B-cell lymphoma Status: Chronic (6) Parkinson disease Status: Chronic - Assessment and Plan (Free Text) Assessment: Assessment: SEPSIS -UROSEPSIS RECURRENT +VE 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 IMMUNE VS DRUGS ? SINEMET, ? ABX S/P RESPIRATORY FAILURE / PNEUMONIA CHF WITH RIGHT-SIDED LARGE EFFUSION S/P GRAM-NEGATIVE SEPSIS +VE ESBL +VE E. COLI . HISTORY OF B CELL- LYMPHOMA ( IN REMISSION ) PARKINSONISM. Plan : DC IV TYGACIL 25MG IV Q 12HRLY( STARTED 01/01 ---01/05/17 ) F/U CBC ON SATURDAY F/U LFTS / BMP ON SATURDAY. F/U URINE CULTURES CLEAN CATCH. STAT TODAY CONTACT PRECAUTIONS. PER PMD AND CONSULTANTS.
--- NOTE | 2017-01-06 07:38 | CP.PCM.PN ---
Subjective - Date & Time of Evaluation Date of Evaluation: 01/06/17 Time of Evaluation: 07:30 - Subjective Subjective: Patient is very confused this AM. Still in the same condition. T this AM 99.3 Objective - Vital Signs/Intake and Output Vital Signs (last 24 hours): Temp Pulse Resp BP Pulse Ox 99.3 F 103 H 23 96/67 L 100 01/06/17 00:00 01/05/17 15:15 01/06/17 00:00 01/06/17 00:00 01/06/17 00:00 - Medications Medications: Current Medications Acetaminophen (Tylenol 650mg/20.3ml Solution Ud) 650 mg PEG Q6 PRN PRN Reason: Pain, moderate (4-7) Last Admin: 01/03/17 13:33 Dose: 650 mg Carbidopa/Levodopa (Sinemet) 1 tab PO QID [facility] Last Admin: 01/05/17 21:20 Dose: 1 tab Entacapone (Comtan) 200 mg PO ACBD [facility] Last Admin: 01/05/17 17:29 Dose: 200 mg Metoprolol Tartrate (Lopressor) 12.5 mg PO BID [facility] Last Admin: 01/05/17 17:30 Dose: Not Given Pantoprazole Sodium (Protonix Ec Tab) 40 mg PO DAILY [facility] Last Admin: 01/05/17 10:52 Dose: 40 mg Polyethylene Glycol (Miralax) 17 gm PO Q8H PRN PRN Reason: Constipation Spironolactone (Aldactone) 25 mg PO DAILY [facility] Last Admin: 01/05/17 10:50 Dose: Not Given - Labs Labs: 01/05/17 07:38 01/05/17 07:38 PT 19.3 SECONDS (9.7-12.2) H 01/02/17 06:48 INR 1.7 01/02/17 06:48 APTT 32 SECONDS (21-34) 12/30/16 07:04 - Constitutional Appears: Confused, Chronically Ill - Head Exam Head Exam: ATRAUMATIC, NORMAL INSPECTION, NORMOCEPHALIC - Eye Exam Pupil Exam: PERRL - ENT Exam ENT Exam: Mucous Membranes Dry - Respiratory Exam Respiratory Exam: Clear to Ausculation Bilateral, NORMAL BREATHING PATTERN - Cardiovascular Exam Cardiovascular Exam: Tachycardia, REGULAR RHYTHM, +S1, +S2 - GI/Abdominal Exam GI & Abdominal Exam: Soft, Normal Bowel Sounds - Rectal Exam Rectal Exam: Deferred - Back Exam Back Exam: NORMAL INSPECTION - Neurological Exam Neurological Exam: Altered - Psychiatric Exam Psychiatric exam: Depressed - Skin Skin Exam: Dry, Intact, Warm Assessment and Plan (1) Altered mental status Status: Acute (2) Sepsis Status: Acute (3) UTI (urinary tract infection) Status: Acute (4) History of B-cell lymphoma Status: Chronic (5) Parkinson disease Status: Chronic (6) CHF (congestive heart failure) Status: Chronic (7) Congestive cardiomyopathy Status: Chronic (8) Pleural effusion Status: Acute (9) 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 Tygasil discontinued due to increasing liver enzymes. Urine obtained for repeat cultrure and if negative can be discharged to subacute facility.
[2017-01-06] MEDS: Pantoprazole 40 mg EC Tab PO SCH (09:22)
--- NOTE | 2017-01-06 09:50 | CP.PCM.PN ---
Subjective - Date & Time of Evaluation Date of Evaluation: 01/06/17 Time of Evaluation: 09:47 - Subjective Subjective: rising LFTs noted and Tygacil stopped No leakage from GT Objective - Vital Signs/Intake and Output Vital Signs (last 24 hours): Temp Pulse Resp BP Pulse Ox 98.1 F 110 H 23 98/68 L 97 01/06/17 08:00 01/06/17 08:00 01/06/17 08:00 01/06/17 08:00 01/06/17 08:00 - Medications Medications: Current Medications Acetaminophen (Tylenol 650mg/20.3ml Solution Ud) 650 mg PEG Q6 PRN PRN Reason: Pain, moderate (4-7) Last Admin: 01/03/17 13:33 Dose: 650 mg Carbidopa/Levodopa (Sinemet) 1 tab PO QID [facility] Last Admin: 01/06/17 09:23 Dose: 1 tab Entacapone (Comtan) 200 mg PO ACBD [facility] Last Admin: 01/06/17 07:47 Dose: 200 mg Metoprolol Tartrate (Lopressor) 12.5 mg PO BID [facility] Last Admin: 01/06/17 09:03 Dose: Not Given Pantoprazole Sodium (Protonix Ec Tab) 40 mg PO DAILY [facility] Last Admin: 01/06/17 09:22 Dose: 40 mg Polyethylene Glycol (Miralax) 17 gm PO Q8H PRN PRN Reason: Constipation Spironolactone (Aldactone) 25 mg PO DAILY [facility] Last Admin: 01/06/17 09:03 Dose: Not Given - Labs Labs: 01/05/17 07:38 01/05/17 07:38 PT 19.3 SECONDS (9.7-12.2) H 01/02/17 06:48 INR 1.7 01/02/17 06:48 APTT 32 SECONDS (21-34) 12/30/16 07:04 - Constitutional Appears: No Acute Distress - Head Exam Head Exam: ATRAUMATIC, NORMOCEPHALIC - Respiratory Exam Respiratory Exam: NORMAL BREATHING PATTERN - Cardiovascular Exam Cardiovascular Exam: REGULAR RHYTHM - GI/Abdominal Exam GI & Abdominal Exam: Soft, Normal Bowel Sounds. absent: Tenderness Additional comments: GT intact Assessment and Plan (1) Malnutrition Assessment & Plan: Continue tube feedings bolus to meet needs Continue tube care Status: Acute (2) Dysphagia Status: Acute (3) Parkinson disease Status: Chronic (4) Coagulopathy Status: Resolved (5) PEG tube malfunction Status: Ruled-out (6) Abnormal liver enzymes Assessment & Plan: Enzymes likely related to medication/Tygacil. r/o viral hepatitis, hepatocelluar /cholestatis from other meds Status: Acute
[2017-01-06] MEDS: Acetaminophen 650mg/20.3ml solution UD PEG PRN (17:00)
[2017-01-07 03:44] LABS: RBC URINE 21 /hpf (0-3); URINE BILIRUBIN NEGATIVE (NEGATIVE); URINE COLOR Amber (YELLOW); URINE GLUCOSE (UA) NORMAL (Normal); URINE KETONE TRACE mg/dL (NEGATIVE); URINE LEUKOCYTE ESTERASE NEG Leu/uL (Negative); URINE PROTEIN 1+ mg/dL (NEGATIVE); URINE UROBILINOGEN NORMAL mg/dL (0.2-1.0); WBC URINE 3 /hpf (0-5)
[2017-01-07 03:46] LABS: URINE BLOOD TRACE (NEGATIVE)
[2017-01-07 08:05] LABS: MONO # 0.7 K/uL (0.0-0.8)
[2017-01-07 08:13] LABS: BASO % 0.2 % (0.0-2.0); HEMATOCRIT 36.7 % (34.0-47.0); MEAN CELL VOLUME 97.1 fL (81.0-99.0); MEAN CORPUSCULAR HEMOGLOBIN 32.5 pg (27.0-31.0); MEAN CORPUSCULAR HGB CONC 33.4 g/dL (33.0-37.0); MEAN PLATELET VOLUME 11.7 fL (7.2-11.7); MONO % 6.9 % (0.0-10.0); NRBC % 0.2 % (0.0-2.0); PLATELET COUNT 110 K/uL (130-400); RED CELL DISTRIBUTION WIDTH 25.4 % (11.5-14.5)
[2017-01-07 08:14] LABS: WHITE BLOOD COUNT 10.7 K/uL (4.8-10.8)
[2017-01-07 08:16] LABS: CHLORIDE 105 mmol/L (98-107); SODIUM 138 mmol/L (132-148)
[2017-01-07 08:17] LABS: POTASSIUM 4.1 mmol/L (3.6-5.2)
[2017-01-07 08:19] LABS: ALB/GLOB RATIO 1.5 (1.0-2.1); ALKALINE PHOSPHATASE 277 U/L (38-126); AST/SGOT 117 U/L (14-36); BILIRUBIN,TOTAL 3.8 mg/dL (0.2-1.3); BLOOD UREA NITROGEN 45 mg/dL (7-17); CARBON DIOXIDE 24 mmol/L (22-30); GFR AFRICAN-AMERICAN > 60; GLUCOSE,RANDOM 100 mg/dL (65-105); TOTAL PROTEIN 4.9 g/dL (6.3-8.3)
[2017-01-07 08:20] LABS: ALT/SGPT 56 U/L (9-52); CALCIUM 8.2 mg/dl (8.6-10.4)
[2017-01-07 08:53] LABS: NEUTROPHIL 90 % (50-75); TOTAL CELLS COUNTED 100
[2017-01-07 09:41] LABS: HEPATITIS A TOTAL ANTIBODY POS (NEGATIVE)
[2017-01-07] MEDS: Pantoprazole 40 mg EC Tab PO SCH (09:56)
--- NOTE | 2017-01-07 11:37 | CP.PCM.PN ---
Subjective - Date & Time of Evaluation Date of Evaluation: 01/07/17 Time of Evaluation: 11:25 - Subjective Subjective: Patient seen and examined. Awake today and more oriented. Family wants o transfer this patient to a subacute in [place]. Patient's liver enzymes are increasing. Bilirubin is 3. Tygasil had been discontinued 2 days ago. Urine c/S is pending. Objective - Vital Signs/Intake and Output Vital Signs (last 24 hours): Temp Pulse Resp BP Pulse Ox 98.7 F 122 H 20 93/60 L 98 01/07/17 07:50 01/07/17 07:50 01/07/17 07:50 01/07/17 07:50 01/07/17 07:50 Intake and Output: 01/07/17 01/07/17 06:59 18:59 Intake Total 30 Balance 30 - Medications Medications: Current Medications Carbidopa/Levodopa (Sinemet) 1 tab PO QID [facility] Last Admin: 01/07/17 09:56 Dose: 1 tab Emollient Ointment (Vaseline Oint) 5 gm TOP TID [facility] Entacapone (Comtan) 200 mg PO ACBD [facility] Last Admin: 01/07/17 08:26 Dose: 200 mg Metoprolol Tartrate (Lopressor) 12.5 mg PO BID [facility] Last Admin: 01/07/17 09:57 Dose: Not Given Pantoprazole Sodium (Protonix Ec Tab) 40 mg PO DAILY [facility] Last Admin: 01/07/17 09:56 Dose: 40 mg Polyethylene Glycol (Miralax) 17 gm PO Q8H PRN PRN Reason: Constipation Spironolactone (Aldactone) 25 mg PO DAILY [facility] Last Admin: 01/07/17 09:57 Dose: Not Given - Labs Labs: 01/07/17 07:50 01/07/17 07:50 PT 19.3 SECONDS (9.7-12.2) H 01/02/17 06:48 INR 1.7 01/02/17 06:48 APTT 32 SECONDS (21-34) 12/30/16 07:04 - Constitutional Appears: No Acute Distress, Chronically Ill - Head Exam Head Exam: ATRAUMATIC, NORMOCEPHALIC - Eye Exam Eye Exam: Normal appearance Pupil Exam: PERRL - ENT Exam ENT Exam: Mucous Membranes Dry - Neck Exam Neck Exam: Full ROM - Respiratory Exam Respiratory Exam: Clear to Ausculation Bilateral, NORMAL BREATHING PATTERN - Cardiovascular Exam Cardiovascular Exam: +S1, +S2 - GI/Abdominal Exam GI & Abdominal Exam: Soft - Rectal Exam Rectal Exam: Deferred - Extremities Exam Extremities Exam: Full ROM, Normal Inspection - Back Exam Back Exam: Full ROM, NORMAL INSPECTION - Neurological Exam Neurological Exam: Altered - Skin Skin Exam: Dry, Intact, Normal Color, Warm Assessment and Plan (1) Altered mental status Status: Acute (2) Sepsis Status: Acute (3) UTI (urinary tract infection) Status: Acute (4) History of B-cell lymphoma Status: Chronic (5) Parkinson disease Status: Chronic (6) CHF (congestive heart failure) Status: Chronic (7) Congestive cardiomyopathy Status: Chronic (8) Pleural effusion Status: Acute (9) VRE infection (vancomycin resistant Enterococcus) Status: Acute (10) Infection due to ESBL-producing Escherichia coli Status: Acute (11) Liver enzyme elevation Status: Acute - Assessment and Plan (Free Text) Plan: Paln: Check liver enzymes. serially. Check urine C/S Continue tube feeding.
--- NOTE | 2017-01-07 13:59 | RAD ---
PROCEDURE: CHEST RADIOGRAPH, 1 VIEW HISTORY: follow up of pleural effusion COMPARISON: 01/03/2017 FINDINGS: LUNGS: Worsening now moderate to large right pleural effusion with prominent consolidative opacification in the right mid to lower lung zone. Small left pleural effusion with worsening left basilar consolidation. Moderate to severe venous congestion. Right chest wall port stable position. PLEURA: As above. CARDIOVASCULAR: Cardiomegaly. Calcification at the aortic knob. OSSEOUS STRUCTURES: Degenerative changes in the spine and shoulders. VISUALIZED UPPER ABDOMEN: Left peg tube in place. OTHER FINDINGS: None. IMPRESSION: Worsening now moderate to large right pleural effusion with prominent consolidative opacification in the right mid to lower lung zone. Small left pleural effusion with worsening left basilar consolidation. Moderate to severe venous congestion. Right chest wall port stable position.
[2017-01-07] MEDS: Petrolatum Oint Foilpak (5 gm) TOP SCH ×2 (14:02→21:32)
--- NOTE | 2017-01-08 07:17 | CP.PCM.PN ---
Subjective - Date & Time of Evaluation Date of Evaluation: 01/08/17 Time of Evaluation: 07:10 - Subjective Subjective: House Doctor Note House resident called by nursing for hypotension. BP 86/53, 81/51. Patient has had recent history of repeated hypotensive episodes. CXR examined by this script writer showing worsening pleural effusions. Spoke with Dr. Hawkins who recommended holding off of bolus at this time due to patient's CHF history. On recheck, BP 88/61 on rt arm, BP 89/[address] Ching asked to reach out to pulm/critical care Dr Lyles for his recommendations regarding placement. PE: CV: Tachycardia, S1/S2 Resp: Decreased breath sounds, rales in lower base on right Plan: No bolus at this time, pressure stable CCU/Pulm consult Dr Lyles (already on case) Objective - Vital Signs/Intake and Output Vital Signs (last 24 hours): Temp Pulse Resp BP Pulse Ox 98.2 F 117 H 22 98/65 L 97 01/07/17 23:17 01/07/17 23:17 01/07/17 23:17 01/07/17 23:17 01/07/17 23:17 Intake and Output: 01/08/17 01/08/17 06:59 18:59 Intake Total 730 Balance 730 - Medications Medications: Current Medications Carbidopa/Levodopa (Sinemet) 1 tab PO QID [facility] Last Admin: 01/07/17 21:32 Dose: 1 tab Emollient Ointment (Vaseline Oint) 5 gm TOP TID [facility] Last Admin: 01/07/17 21:32 Dose: 5 gm Entacapone (Comtan) 200 mg PO ACBD [facility] Last Admin: 01/07/17 17:15 Dose: 200 mg Metoprolol Tartrate (Lopressor) 12.5 mg PO BID [facility] Last Admin: 01/07/17 17:15 Dose: Not Given Pantoprazole Sodium (Protonix Ec Tab) 40 mg PO DAILY [facility] Last Admin: 01/07/17 09:56 Dose: 40 mg Polyethylene Glycol (Miralax) 17 gm PO Q8H PRN PRN Reason: Constipation Spironolactone (Aldactone) 25 mg PO DAILY [facility] Last Admin: 01/07/17 09:57 Dose: Not Given - Labs Labs: 01/07/17 07:50 01/07/17 07:50 PT 19.3 SECONDS (9.7-12.2) H 01/02/17 06:48 INR 1.7 01/02/17 06:48 APTT 32 SECONDS (21-34) 12/30/16 07:04
--- NOTE | 2017-01-08 10:12 | CP.PCM.PN ---
Subjective - Date & Time of Evaluation Date of Evaluation: 01/08/17 Time of Evaluation: 10:10 - Subjective Subjective: NOted rise in LFTs Viral markers all negative for Hep A,B,C. Tolerating feedings Objective - Vital Signs/Intake and Output Vital Signs (last 24 hours): Temp Pulse Resp BP Pulse Ox 97.9 F 123 H 20 102/71 98 01/08/17 08:00 01/08/17 08:00 01/08/17 08:00 01/08/17 08:00 01/08/17 08:00 Intake and Output: 01/08/17 01/08/17 06:59 18:59 Intake Total 830 Balance 830 - Medications Medications: Current Medications Carbidopa/Levodopa (Sinemet) 1 tab PO QID [facility] Last Admin: 01/07/17 21:32 Dose: 1 tab Emollient Ointment (Vaseline Oint) 5 gm TOP TID [facility] Last Admin: 01/07/17 21:32 Dose: 5 gm Entacapone (Comtan) 200 mg PO ACBD [facility] Last Admin: 01/07/17 17:15 Dose: 200 mg Metoprolol Tartrate (Lopressor) 12.5 mg PO BID [facility] Last Admin: 01/07/17 17:15 Dose: Not Given Pantoprazole Sodium (Protonix Ec Tab) 40 mg PO DAILY [facility] Last Admin: 01/07/17 09:56 Dose: 40 mg Polyethylene Glycol (Miralax) 17 gm PO Q8H PRN PRN Reason: Constipation Spironolactone (Aldactone) 25 mg PO DAILY [facility] Last Admin: 01/07/17 09:57 Dose: Not Given - Labs Labs: 01/07/17 07:50 01/07/17 07:50 PT 19.3 SECONDS (9.7-12.2) H 01/02/17 06:48 INR 1.7 01/02/17 06:48 APTT 32 SECONDS (21-34) 12/30/16 07:04 - Constitutional Appears: No Acute Distress - Respiratory Exam Respiratory Exam: NORMAL BREATHING PATTERN - Cardiovascular Exam Cardiovascular Exam: REGULAR RHYTHM, +S1 - GI/Abdominal Exam GI & Abdominal Exam: Soft, Normal Bowel Sounds. absent: Tenderness Additional comments: GT intact - Extremities Exam Extremities Exam: Normal Inspection Assessment and Plan (1) Malnutrition Assessment & Plan: Tolerating feedings well. Status: Acute (2) Dysphagia Status: Acute (3) Parkinson disease Status: Chronic (4) Coagulopathy Status: Resolved (5) PEG tube malfunction Status: Resolved (6) Abnormal liver enzymes Assessment & Plan: Enzymes still rising in spite of stopping Tygacil. Viral markers are negative. Most likely to be drug induced Check abdominal/hepatic Ultrasound Status: Acute
--- NOTE | 2017-01-08 10:55 | CP.PCM.PN ---
Subjective - Date & Time of Evaluation Date of Evaluation: 01/08/17 Time of Evaluation: 10:50 - Subjective Subjective: Patient is awake , but still confused. I was called this Am by the resident for tachycardia and a BP of 80 sustolic. Repeat chest X-ray yesterday revealed a large pleural effusion on the right and worsening consolidation on the left. Pleural tap to be done today. Urine culture is showing gram negative rods and gram positive cocci. Awaiting identification and sensitivity. Objective - Vital Signs/Intake and Output Vital Signs (last 24 hours): Temp Pulse Resp BP Pulse Ox 97.9 F 123 H 20 102/71 98 01/08/17 08:00 01/08/17 08:00 01/08/17 08:00 01/08/17 08:00 01/08/17 08:00 Intake and Output: 01/08/17 01/08/17 06:59 18:59 Intake Total 830 Balance 830 - Medications Medications: Current Medications Carbidopa/Levodopa (Sinemet) 1 tab PO QID [facility] Last Admin: 01/07/17 21:32 Dose: 1 tab Emollient Ointment (Vaseline Oint) 5 gm TOP TID [facility] Last Admin: 01/07/17 21:32 Dose: 5 gm Entacapone (Comtan) 200 mg PO ACBD [facility] Last Admin: 01/07/17 17:15 Dose: 200 mg Metoprolol Tartrate (Lopressor) 12.5 mg PO BID [facility] Last Admin: 01/07/17 17:15 Dose: Not Given Pantoprazole Sodium (Protonix Ec Tab) 40 mg PO DAILY [facility] Last Admin: 01/07/17 09:56 Dose: 40 mg Polyethylene Glycol (Miralax) 17 gm PO Q8H PRN PRN Reason: Constipation Spironolactone (Aldactone) 25 mg PO DAILY [facility] Last Admin: 01/07/17 09:57 Dose: Not Given - Labs Labs: 01/07/17 07:50 01/07/17 07:50 PT 19.3 SECONDS (9.7-12.2) H 01/02/17 06:48 INR 1.7 01/02/17 06:48 APTT 32 SECONDS (21-34) 12/30/16 07:04 - Constitutional Appears: No Acute Distress, Chronically Ill - Head Exam Head Exam: ATRAUMATIC, NORMAL INSPECTION, NORMOCEPHALIC - Eye Exam Eye Exam: EOMI Pupil Exam: PERRL - ENT Exam ENT Exam: Mucous Membranes Dry - Neck Exam Neck Exam: Full ROM - Respiratory Exam Respiratory Exam: Decreased Breath Sounds, NORMAL BREATHING PATTERN - Cardiovascular Exam Cardiovascular Exam: Tachycardia, REGULAR RHYTHM, +S1, +S2 - GI/Abdominal Exam GI & Abdominal Exam: Soft, Normal Bowel Sounds - Rectal Exam Rectal Exam: NORMAL INSPECTION - Extremities Exam Extremities Exam: Normal Inspection - Back Exam Back Exam: Full ROM, NORMAL INSPECTION - Neurological Exam Neurological Exam: Altered, Awake - Psychiatric Exam Psychiatric exam: Depressed - Skin Skin Exam: Dry, Intact, Warm Assessment and Plan (1) Altered mental status Status: Acute (2) Sepsis Status: Acute (3) UTI (urinary tract infection) Status: Acute (4) History of B-cell lymphoma Status: Chronic (5) Parkinson disease Status: Chronic (6) CHF (congestive heart failure) Status: Chronic (7) Congestive cardiomyopathy Status: Chronic (8) Pleural effusion Status: Acute (9) 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 Brendon was with held today for probable cause of her increasing liver enzymes. Tylesly was with held . Awaiting indentification and sensitivity of urine culture. Prognosis of patient guarded. Will discuss with the family
[2017-01-08] MEDS: Pantoprazole 40 mg EC Tab PO SCH (11:42)
[2017-01-08] MEDS: Petrolatum Oint Foilpak (5 gm) TOP SCH ×2 (11:42→18:15)
--- NOTE | 2017-01-08 15:37 | US ---
HISTORY: Abnormal LFTs COMPARISON: CT abdomen and pelvis with contrast performed 12/27/16 TECHNIQUE: Sonographic evaluation of the abdomen. FINDINGS: Examination markedly limited by patient condition, habitus, and positioning. LIVER: Measures 17.1 cm in sagittal dimension. Echogenic liver may be seen in setting of hepatic parenchymal disease or fatty infiltration. No focal hepatic mass identified. The main portal vein appears patent with normal directional flow. No intrahepatic bile duct dilatation. GALLBLADDER: No gallstones. Gallbladder wall thickening/edema measuring up to 5 mm. Negative sonographic Gallagher's sign as assessed by the hr intern. COMMON BILE DUCT: Measures 5 mm. PANCREAS: Not well visualized. RIGHT KIDNEY: Limited visualization. Lower pole not visualized. Measures 10.6 x 4.2 x 4.6 cm. No obstructing calculus or hydronephrosis identified. LEFT KIDNEY: Measures 9.9 x 4.5 x 4.8 cm. No obstructing calculus or hydronephrosis identified. SPLEEN: Measures approximately 5.6 cm. AORTA: Limited views appear unremarkable. IVC: Limited views appear unremarkable. OTHER FINDINGS: Small ascites. Incidental note is made of right-sided pleural effusion. IMPRESSION: Markedly limited study as above. Echogenic liver may be seen in setting of hepatic parenchymal disease or fatty infiltration. Gallbladder wall thickening/edema. No evidence of gallstones. Negative sonographic Gallagher's sign as assessed by the hr intern. Small ascites. Right-sided pleural effusion.
--- NOTE | 2017-01-08 17:53 | CP.PCM.PN ---
Subjective - Date & Time of Evaluation Date of Evaluation: 01/08/17 Time of Evaluation: 12:00 - Subjective Subjective: Patient seen and examined. Lying with no respiratory distress There is re accumulation of pleural fluid On antibiotics for VRE infection Rapid response for hypotension Objective - Vital Signs/Intake and Output Vital Signs (last 24 hours): Temp Pulse Resp BP Pulse Ox 97.3 F L 112 H 26 H 96/59 L 99 01/08/17 15:05 01/08/17 15:05 01/08/17 15:05 01/08/17 15:05 01/08/17 15:05 Intake and Output: 01/08/17 01/08/17 06:59 18:59 Intake Total 830 Balance 830 - Medications Medications: Current Medications Carbidopa/Levodopa (Sinemet) 1 tab PO QID [facility] Last Admin: 01/08/17 14:41 Dose: 1 tab Emollient Ointment (Vaseline Oint) 5 gm TOP TID [facility] Last Admin: 01/08/17 11:42 Dose: 5 gm Entacapone (Comtan) 200 mg PO ACBD [facility] Last Admin: 01/07/17 17:15 Dose: 200 mg Metoprolol Tartrate (Lopressor) 12.5 mg PO BID [facility] Last Admin: 01/08/17 17:26 Dose: Not Given Pantoprazole Sodium (Protonix Ec Tab) 40 mg PO DAILY [facility] Last Admin: 01/08/17 11:42 Dose: 40 mg Polyethylene Glycol (Miralax) 17 gm PO Q8H PRN PRN Reason: Constipation Spironolactone (Aldactone) 25 mg PO DAILY [facility] Last Admin: 01/08/17 11:40 Dose: Not Given - Labs Labs: 01/07/17 07:50 01/07/17 07:50 PT 19.3 SECONDS (9.7-12.2) H 01/02/17 06:48 INR 1.7 01/02/17 06:48 APTT 32 SECONDS (21-34) 12/30/16 07:04 - Head Exam Head Exam: ATRAUMATIC, NORMOCEPHALIC - ENT Exam ENT Exam: Mucous Membranes Moist - Neck Exam Neck Exam: Normal Inspection - Respiratory Exam Respiratory Exam: Decreased Breath Sounds - GI/Abdominal Exam GI & Abdominal Exam: Soft, Normal Bowel Sounds Assessment and Plan (1) Pleural effusion Assessment & Plan: Patient has reaccumulation of pleural fluid For thoracentesis by IR tomorrow Continue present treatment Continue PEG feeding Status: Acute (2) Sepsis Status: Acute (3) Parkinson disease Status: Chronic (4) Congestive cardiomyopathy Status: Chronic (5) History of B-cell lymphoma Status: Chronic
[2017-01-09 09:32] LABS: BILIRUBIN,TOTAL 4.1 mg/dL (0.2-1.3); TOTAL PROTEIN 6.2 g/dL (6.3-8.3)
[2017-01-09 09:35] LABS: BILIRUBIN,DIRECT 2.7 mg/dL (0.0-0.4)
--- NOTE | 2017-01-09 10:11 | CP.PCM.PN ---
Subjective - Date & Time of Evaluation Date of Evaluation: 01/09/17 Time of Evaluation: 10:09 - Subjective Subjective: LFTs remain elevated Urinary infection noted as well Events reviewed Objective - Vital Signs/Intake and Output Vital Signs (last 24 hours): Temp Pulse Resp BP Pulse Ox 97.7 F 121 H 18 90/54 L 100 01/09/17 07:40 01/09/17 07:40 01/09/17 07:40 01/09/17 07:40 01/09/17 07:40 Intake and Output: 01/09/17 01/09/17 06:59 18:59 Intake Total 240 Balance 240 - Medications Medications: Current Medications Carbidopa/Levodopa (Sinemet) 1 tab PO QID [facility] Last Admin: 01/08/17 21:16 Dose: 1 tab Emollient Ointment (Vaseline Oint) 5 gm TOP TID [facility] [place] Last Admin: 01/08/17 18:15 Dose: 5 gm Metoprolol Tartrate (Lopressor) 12.5 mg PO BID [facility] [place] Last Admin: 01/08/17 17:26 Dose: Not Given Pantoprazole Sodium (Protonix Ec Tab) 40 mg PO DAILY [facility] [place] Last Admin: 01/08/17 11:42 Dose: 40 mg Polyethylene Glycol (Miralax) 17 gm PO Q8H PRN PRN Reason: Constipation Spironolactone (Aldactone) 25 mg PO DAILY [facility] [place] Last Admin: 01/08/17 11:40 Dose: Not Given - Labs Labs: 01/07/17 07:50 01/07/17 07:50 PT 19.3 SECONDS (9.7-12.2) H 01/02/17 06:48 INR 1.7 01/02/17 06:48 APTT 32 SECONDS (21-34) 12/30/16 07:04 - Constitutional Appears: Chronically Ill - Respiratory Exam Respiratory Exam: Decreased Breath Sounds - Cardiovascular Exam Cardiovascular Exam: REGULAR RHYTHM - GI/Abdominal Exam GI & Abdominal Exam: Soft, Normal Bowel Sounds. absent: Tenderness Additional comments: GT site intact - Extremities Exam Extremities Exam: Normal Inspection Assessment and Plan (1) Malnutrition Status: Chronic (2) Dysphagia Status: Acute (3) Parkinson disease Status: Chronic (4) Coagulopathy Status: Resolved (5) PEG tube malfunction Status: Resolved (6) Abnormal liver enzymes Assessment & Plan: Enzyme elevation likely to be drug induced +/- due to sepsis (urinary source) Continue to monitor and observe. Possible offending meds have been d/c'd. Status: Acute
[2017-01-09] MEDS: Pantoprazole 40 mg EC Tab PO SCH (11:08)
[2017-01-09] MEDS: Petrolatum Oint Foilpak (5 gm) TOP SCH ×3 (11:09→17:23)
--- NOTE | 2017-01-09 11:31 | CP.PCM.PN ---
Subjective - Date & Time of Evaluation Date of Evaluation: 01/09/17 Time of Evaluation: 11:25 - Subjective Subjective: Patient awake and confused. No respiratory ifficulties. Urine C/S positive for P. Mirabilis and VRE. sensitive only to Zosyn. Objective - Vital Signs/Intake and Output Vital Signs (last 24 hours): Temp Pulse Resp BP Pulse Ox 97.7 F 121 H 18 90/54 L 100 01/09/17 07:40 01/09/17 07:40 01/09/17 07:40 01/09/17 07:40 01/09/17 07:40 Intake and Output: 01/09/17 01/09/17 06:59 18:59 Intake Total 240 Balance 240 - Medications Medications: Current Medications Carbidopa/Levodopa (Sinemet) 1 tab PO QID [facility] Last Admin: 01/08/17 21:16 Dose: 1 tab Emollient Ointment (Vaseline Oint) 5 gm TOP TID [facility] Last Admin: 01/09/17 11:09 Dose: 5 gm Metoprolol Tartrate (Lopressor) 12.5 mg PO BID [facility] Last Admin: 01/08/17 17:26 Dose: Not Given Pantoprazole Sodium (Protonix Ec Tab) 40 mg PO DAILY [facility] Last Admin: 01/09/17 11:08 Dose: 40 mg Polyethylene Glycol (Miralax) 17 gm PO Q8H PRN PRN Reason: Constipation Spironolactone (Aldactone) 25 mg PO DAILY [facility] Last Admin: 01/08/17 11:40 Dose: Not Given - Labs Labs: 01/07/17 07:50 01/07/17 07:50 PT 19.3 SECONDS (9.7-12.2) H 01/02/17 06:48 INR 1.7 01/02/17 06:48 APTT 32 SECONDS (21-34) 12/30/16 07:04 - Constitutional Appears: No Acute Distress, Confused, Chronically Ill - Head Exam Head Exam: ATRAUMATIC, NORMAL INSPECTION, NORMOCEPHALIC - Eye Exam Eye Exam: Normal appearance Pupil Exam: PERRL - ENT Exam ENT Exam: Mucous Membranes Dry - Neck Exam Neck Exam: Full ROM - Respiratory Exam Respiratory Exam: Decreased Breath Sounds, NORMAL BREATHING PATTERN - Cardiovascular Exam Cardiovascular Exam: Tachycardia, REGULAR RHYTHM, +S1, +S2 - GI/Abdominal Exam GI & Abdominal Exam: Soft - Rectal Exam Rectal Exam: Deferred - Extremities Exam Extremities Exam: Full ROM, Normal Inspection - Neurological Exam Neurological Exam: Altered, Awake - Psychiatric Exam Psychiatric exam: Depressed - Skin Skin Exam: Dry, Intact Assessment and Plan (1) Altered mental status Status: Acute (2) Sepsis Status: Acute (3) UTI (urinary tract infection) Status: Acute (4) History of B-cell lymphoma Status: Chronic (5) Parkinson disease Status: Chronic (6) CHF (congestive heart failure) Status: Chronic (7) Congestive cardiomyopathy Status: Chronic (8) Pleural effusion Status: Acute (9) 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 Lynn will be called for the IV antibiotics. For pleural tap today.
--- NOTE | 2017-01-09 12:42 | PCM.SURG1 ---
Surgeon's Initial Post Op Note - Surgeon's Notes Surgeon: Rigoberto Ely MD Outfitter Cabin: None Type of Anesthesia: Local Pre-Operative Diagnosis: SOB Operative Findings: moderate right pleural effusion Post-Operative Diagnosis: same Operation Performed: US Guided RIGHT Thoracentesis Specimen/Specimens Removed: 550 cc straw colored fluid removed. 60 cc sample submitted. Estimated Blood Loss: EBL {In ML}: 0 Post-Op Condition: Good Date of Surgery/Procedure: 01/09/17 Time of Surgery/Procedure: 12:00
--- NOTE | 2017-01-09 12:57 | US ---
PROCEDURE: ULTRASOUND-GUIDED THORACENTESIS CLINICAL HISTORY: 66-year-old female with recurrent symptomatic right pleural effusion is referred to Interventional Radiology for ultrasound-guided thoracentesis. COMPARISON: Chest radiograph dated 01/07/2017. PROCEDURE: 1. Ultrasound-guided right thoracentesis. PRE-PROCEDURE FINDINGS: 1. Moderate volume pleural effusion. POST-PROCEDURE FINDINGS: 1. No evidence of post-procedural complication. INTERVENTIONAL RADIOLOGIST: Rigoberto Ely M.D. (the attending was present for the entire procedure.) ANESTHESIA: None. MEDICATION: Lidocaine 1% for local subcutaneous analgesia. COMPLICATIONS: None. PROCEDURE DESCRIPTION AND FINDINGS: The risks, benefits, alternatives and possible complications of the procedure were fully discussed; all questions were answered and informed consent was obtained. The patient was brought into the interventional suite and a pre-procedure 'time-out' was performed. The patient was placed in the left lateral decubitus position. Preliminary ultrasound images of the right hemithorax demonstrate a moderate simple appearing pleural effusion. The right hemithorax was prepped and draped in the usual sterile fashion. Maximum sterile barrier precautions were maintained throughout the entire procedure. Following subcutaneous infiltration of lidocaine 1% for local analgesia, under ultrasound guidance, a 5 Tunisian centesis catheter was advanced into the right pleural space with real-time visualization of needle entry. The ultrasound images were permanently recorded and submitted to the PACS. The inner stylet was removed with prompt return of straw-colored fluid. The catheter was attached to gentle vacuum suction. A total of 550 mL of straw-colored fluid was aspirated. A sample was submitted to the laboratory for analysis. The drainage catheter was then removed. A sterile adhesive bandage was placed over the puncture site. The patient tolerated the procedure well without immediate post-procedure complications and was transferred back to the floor in stable condition. IMPRESSION: SUCCESSFUL ULTRASOUND-GUIDED RIGHT DIAGNOSTIC AND THERAPEUTIC THORACENTESIS.
[2017-01-09] MEDS ORDERED: Piperacill/Tazo 3.375gm in Dex 3.375 GM/50 ML BAG IVPB SCH (14:00)
[2017-01-09] MEDS ORDERED: Midazolam 2 MG/2 ML VIAL ONE (14:06)
[2017-01-09 14:26] LABS: BODY FLUID TYPE PLEURAL/THORACENTESI
[2017-01-09 15:01] LABS: BF GROSS APPEARANCE SL CLOUDY (CLEAR)
[2017-01-09] MEDS ORDERED: Aztreonam 1 GM in Sodium Chloride 0.9% 100 ML IVPB SCH (16:00)
[2017-01-09] MEDS: Aztreonam 1 GM in Dextrose 5% In Water 100 ML IVPB SCH (16:38)
--- NOTE | 2017-01-09 17:06 | CP.PCM.PN ---
Subjective - Date & Time of Evaluation Date of Evaluation: 01/09/17 Time of Evaluation: 13:00 - Subjective Subjective: Patient seen and examined. Status post thoracentesis and 550 mL of straw-colored fluid removed awake, responsive and denies shortness of breath Tolerating PEG feeding Afebrile Objective - Vital Signs/Intake and Output Vital Signs (last 24 hours): Temp Pulse Resp BP Pulse Ox 97.5 F L 124 H 20 90/69 L 97 01/09/17 15:00 01/09/17 15:00 01/09/17 15:00 01/09/17 15:00 01/09/17 15:00 Intake and Output: 01/09/17 01/09/17 06:59 18:59 Intake Total 240 500 Balance 240 500 - Medications Medications: Current Medications Carbidopa/Levodopa (Sinemet) [address] [facility] Last Admin: 01/09/17 13:54 Dose: 1 tab Emollient Ointment (Vaseline Oint) [address] [facility] Last Admin: 01/09/17 13:55 Dose: 5 gm Tigecycline 50 mg/ Sodium (Chloride) 100 mls @ 100 mls/hr IVPB Q12H [facility] Aztreonam 1 gm/ Dextrose 100 mls @ 200 mls/hr IVPB Q8H [facility] Last Admin: 01/09/17 16:38 Dose: 200 mls/hr Metoprolol Tartrate (Lopressor) 12.[address] [facility] Last Admin: 01/09/17 11:29 Dose: Not Given Pantoprazole Sodium (Protonix Ec Tab) [address] [facility] Last Admin: 01/09/17 11:08 Dose: 40 mg Polyethylene Glycol (Miralax) 17 gm PO Q8H PRN PRN Reason: Constipation Spironolactone (Aldactone) [address] [facility] Last Admin: 01/09/17 11:29 Dose: Not Given - Labs Labs: 01/07/17 07:50 01/07/17 07:50 PT 19.3 SECONDS (9.7-12.2) H 01/02/17 06:48 INR 1.7 01/02/17 06:48 APTT 32 SECONDS (21-34) 12/30/16 07:04 - Head Exam Head Exam: ATRAUMATIC, NORMOCEPHALIC - ENT Exam ENT Exam: Mucous Membranes Moist - Neck Exam Neck Exam: Normal Inspection - Respiratory Exam Respiratory Exam: Decreased Breath Sounds - GI/Abdominal Exam GI & Abdominal Exam: Soft, Normal Bowel Sounds - Extremities Exam Extremities Exam: Normal Inspection Assessment and Plan (1) Pleural effusion Assessment & Plan: Status post thoracentesis Fluid analysis Continue PEG feeding Continue antibiotics per infectious disease Status: Acute (2) Sepsis Status: Acute (3) Parkinson disease Status: Chronic (4) Congestive cardiomyopathy Status: Chronic (5) History of B-cell lymphoma Status: Chronic
[2017-01-10] MEDS: Aztreonam 1 GM in Dextrose 5% In Water 100 ML IVPB SCH ×2 (00:24→09:07)
[2017-01-10 07:43] LABS: BASO % 0.3 % (0.0-2.0); EOS % 0.1 % (0.0-4.0); HEMATOCRIT 38.4 % (34.0-47.0); LYMPH # 1.2 K/uL (1.0-4.3); LYMPH % 22.3 % (20.0-40.0); MEAN CORPUSCULAR HEMOGLOBIN 32.1 pg (27.0-31.0); MEAN CORPUSCULAR HGB CONC 32.3 g/dL (33.0-37.0); MEAN PLATELET VOLUME 11.7 fL (7.2-11.7); MONO # 0.5 K/uL (0.0-0.8); MONO % 9.4 % (0.0-10.0); NRBC % 0.8 % (0.0-2.0); RED CELL DISTRIBUTION WIDTH 26.7 % (11.5-14.5); WHITE BLOOD COUNT 5.5 K/uL (4.8-10.8)
[2017-01-10 07:51] LABS: MEAN CELL VOLUME 99.4 fL (81.0-99.0)
[2017-01-10 07:59] LABS: ALB/GLOB RATIO 1.4 (1.0-2.1); ALKALINE PHOSPHATASE 296 U/L (38-126); ALT/SGPT 32 U/L (9-52); AST/SGOT 57 U/L (14-36); BILIRUBIN,TOTAL 4.4 mg/dL (0.2-1.3); BLOOD UREA NITROGEN 56 mg/dL (7-17); CALCIUM 8.2 mg/dl (8.6-10.4); CARBON DIOXIDE 24 mmol/L (22-30); CHLORIDE 105 mmol/L (98-107); GFR AFRICAN-AMERICAN > 60; GLUCOSE,RANDOM 79 mg/dL (65-105); POTASSIUM 3.9 mmol/L (3.6-5.2); SODIUM 139 mmol/L (132-148); TOTAL PROTEIN 4.8 g/dL (6.3-8.3)
[2017-01-10] MEDS: Petrolatum Oint Foilpak (5 gm) TOP SCH ×3 (10:23→17:11)
[2017-01-10] MEDS: Pantoprazole 40 mg EC Tab PO SCH (10:24)
--- NOTE | 2017-01-10 10:57 | CP.PCM.PN ---
Subjective - Date & Time of Evaluation Date of Evaluation: 01/10/17 Time of Evaluation: 10:45 - Subjective Subjective: Patient is awake but confused. Had thoracentesis done yesterday and 550 cc of fluid taken out.Liver enzymes are slightly lower. Bilirubin are slightly higher. Tolerating the tube feeding very well. Objective - Vital Signs/Intake and Output Vital Signs (last 24 hours): Temp Pulse Resp BP Pulse Ox 97.3 F L 103 H 20 100/64 96 01/10/17 07:05 01/10/17 07:05 01/10/17 07:05 01/10/17 07:05 01/10/17 07:05 - Medications Medications: Current Medications Carbidopa/Levodopa (Sinemet) 1 tab PO QID [facility] Last Admin: 01/10/17 10:25 Dose: 1 tab Emollient Ointment (Vaseline Oint) 5 gm TOP TID [facility] Last Admin: 01/10/17 10:23 Dose: 5 gm Tigecycline 50 mg/ Sodium (Chloride) 100 mls @ 100 mls/hr IVPB Q12H [facility] Last Admin: 01/10/17 04:38 Dose: 100 mls/hr Aztreonam 1 gm/ Sodium (Chloride) 100 mls @ 200 mls/hr IVPB Q8H [facility] Metoprolol Tartrate (Lopressor) 12.5 mg PO BID [facility] Last Admin: 01/09/17 17:15 Dose: Not Given Pantoprazole Sodium (Protonix Ec Tab) 40 mg PO DAILY [facility] Last Admin: 01/10/17 10:24 Dose: 40 mg Polyethylene Glycol (Miralax) 17 gm PO Q8H PRN PRN Reason: Constipation Spironolactone (Aldactone) 25 mg PO DAILY [facility] Last Admin: 01/09/17 11:29 Dose: Not Given - Labs Labs: 01/10/17 07:35 01/10/17 07:35 PT 19.3 SECONDS (9.7-12.2) H 01/02/17 06:48 INR 1.7 01/02/17 06:48 APTT 32 SECONDS (21-34) 12/30/16 07:04 - Constitutional Appears: No Acute Distress, Chronically Ill - Head Exam Head Exam: ATRAUMATIC, NORMAL INSPECTION, NORMOCEPHALIC - Eye Exam Eye Exam: EOMI Pupil Exam: PERRL - ENT Exam ENT Exam: Mucous Membranes Dry - Neck Exam Neck Exam: Full ROM - Respiratory Exam Respiratory Exam: NORMAL BREATHING PATTERN - Cardiovascular Exam Cardiovascular Exam: Tachycardia, REGULAR RHYTHM, +S1, +S2 - GI/Abdominal Exam GI & Abdominal Exam: Soft - Rectal Exam Rectal Exam: Deferred - Extremities Exam Extremities Exam: Full ROM - Back Exam Back Exam: NORMAL INSPECTION - Neurological Exam Neurological Exam: Altered - Skin Skin Exam: Dry, Intact, Warm Assessment and Plan (1) Altered mental status Status: Acute (2) Sepsis Status: Acute (3) UTI (urinary tract infection) Status: Acute (4) History of B-cell lymphoma Status: Chronic (5) Parkinson disease Status: Chronic (6) CHF (congestive heart failure) Status: Chronic (7) Congestive cardiomyopathy Status: Chronic (8) Pleural effusion Status: Acute (9) VRE infection (vancomycin resistant Enterococcus) Status: Acute (10) Infection due to ESBL-producing Escherichia coli Status: Acute (11) Liver enzyme elevation Status: Acute - Assessment and Plan (Free Text) Plan: Plan: Continue Zyvox, and Azactam. Continue tube feeding. Continue Sinemet. Discontinue Comtan.
--- NOTE | 2017-01-10 11:15 | CP.PCM.PN ---
Subjective - Date & Time of Evaluation Date of Evaluation: 01/10/17 Time of Evaluation: 11:12 - Subjective Subjective: Thoracentese performed. Alk Phos, AST, ALT have all begun trending down. T Bili still rising slightly. Tolerating tube feedings with no leakage Objective - Vital Signs/Intake and Output Vital Signs (last 24 hours): Temp Pulse Resp BP Pulse Ox 97.3 F L 103 H 20 100/64 96 01/10/17 07:05 01/10/17 07:05 01/10/17 07:05 01/10/17 07:05 01/10/17 07:05 - Medications Medications: Current Medications Emollient Ointment (Vaseline Oint) 5 gm TOP TID [facility] Last Admin: 01/10/17 10:23 Dose: 5 gm Aztreonam 1 gm/ Sodium (Chloride) 100 mls @ 200 mls/hr IVPB Q8H [facility] Metoprolol Tartrate (Lopressor) 12.5 mg PO BID [facility] Last Admin: 01/10/17 10:25 Dose: Not Given Pantoprazole Sodium (Protonix Ec Tab) 40 mg PO DAILY [facility] Last Admin: 01/10/17 10:24 Dose: 40 mg Polyethylene Glycol (Miralax) 17 gm PO Q8H PRN PRN Reason: Constipation Spironolactone (Aldactone) 25 mg PO DAILY [facility] Last Admin: 01/10/17 10:25 Dose: Not Given - Labs Labs: 01/10/17 07:35 01/10/17 07:35 PT 19.3 SECONDS (9.7-12.2) H 01/02/17 06:48 INR 1.7 01/02/17 06:48 APTT 32 SECONDS (21-34) 12/30/16 07:04 - Constitutional Appears: No Acute Distress, Confused - Head Exam Head Exam: ATRAUMATIC, NORMOCEPHALIC - Respiratory Exam Respiratory Exam: Decreased Breath Sounds - Cardiovascular Exam Cardiovascular Exam: REGULAR RHYTHM - GI/Abdominal Exam GI & Abdominal Exam: Soft, Normal Bowel Sounds. absent: Tenderness Additional comments: GT intact and site without leakage or induration - Extremities Exam Extremities Exam: Normal Inspection Assessment and Plan (1) Malnutrition Assessment & Plan: Continue tube feedings as tolerated to meet needs. Po intake as tolerated as well. Status: Chronic (2) Dysphagia Status: Chronic (3) Parkinson disease Status: Chronic (4) Coagulopathy Status: Resolved (5) PEG tube malfunction Status: Resolved (6) Abnormal liver enzymes Assessment & Plan: Enzymes trending down with discontinuaiton of Comtan and Tygercil. Bilirubin improvement may lag behind transaminases and AlkPhos. Status: Acute (7) Drug-induced hepatitis Assessment & Plan: Likely due to Comtan +/- Tygercil. Meds have been discontinued. Monitor LFTs for continued improvement. Stable from GI point of view at this point in time. Status: Acute
[2017-01-10] MEDS: Linezolid 600 mg in D5W 300 ml 600 MG/300 ML BAG IVPB SCH (13:06)
--- NOTE | 2017-01-10 14:00 | CP.PCM.PN ---
Subjective - Date & Time of Evaluation Date of Evaluation: 01/10/17 Time of Evaluation: 14:00 - Subjective Subjective: afebrile, Awake but confused, Still tachycardic, S/P Thoracentese performed 01/09/17 PLEURAL FLUID LYMPHOCYTIC EFFUSION -MOST PROBABLE SECONDARY TO CHF. PLEURAL FLUID CULTURES -VE GROWTH. Alk Phos, AST, ALT have all begun trending down. T Bili still rising slightly. Tolerating BOLUS tube feedings with no leakage. REPEAT URINE CULTURE- VRE/PROTEUS MIRABILIS. ON IV ZYVOX , AND ON IV AZACTAM- NOTED. CASE DISCUSSED WITH PMD DR MCKEON. DR Rani MADRID (ID ) F/U APPRECIATED. Objective - Vital Signs/Intake and Output Vital Signs (last 24 hours): Temp Pulse Resp BP Pulse Ox 97.3 F L 103 H 20 100/64 96 01/10/17 07:05 01/10/17 07:05 01/10/17 07:05 01/10/17 07:05 01/10/17 07:05 - Medications Medications: Current Medications Emollient Ointment (Vaseline Oint) 5 gm TOP TID [facility] Last Admin: 01/10/17 13:07 Dose: 5 gm Aztreonam 1 gm/ Sodium (Chloride) 100 mls @ 200 mls/hr IVPB Q8H [facility] Linezolid (Zyvox 600mg/300ml D5w) 600 mg in 300 mls @ 200 mls/hr IVPB Q12H [facility] Last Admin: 01/10/17 13:06 Dose: 200 mls/hr Metoprolol Tartrate (Lopressor) 12.5 mg PO BID [facility] Last Admin: 01/10/17 10:25 Dose: Not Given Pantoprazole Sodium (Protonix Ec Tab) 40 mg PO DAILY [facility] Last Admin: 01/10/17 10:24 Dose: 40 mg Polyethylene Glycol (Miralax) 17 gm PO Q8H PRN PRN Reason: Constipation Spironolactone (Aldactone) 25 mg PO DAILY [facility] Last Admin: 01/10/17 10:25 Dose: Not Given - Labs Labs: 01/10/17 07:35 01/10/17 07:35 PT 19.3 SECONDS (9.7-12.2) H 01/02/17 06:48 INR 1.7 01/02/17 06:48 APTT 32 SECONDS (21-34) 12/30/16 07:04 - Constitutional Appears: No Acute Distress, Chronically Ill - Head Exam Head Exam: NORMAL INSPECTION, NORMOCEPHALIC - Eye Exam Eye Exam: EOMI, PERRL, Scleral icterus - ENT Exam ENT Exam: Normal Oropharynx - Neck Exam Neck Exam: Normal Inspection. absent: Meningismus - Respiratory Exam Respiratory Exam: Rales (BASILAR RALES.) - Cardiovascular Exam Cardiovascular Exam: Tachycardia, REGULAR RHYTHM, +S1, +S2 - GI/Abdominal Exam GI & Abdominal Exam: Soft (peg IN PLACE.), Normal Bowel Sounds - Extremities Exam Extremities Exam: absent: Calf Tenderness, Pedal Edema - Neurological Exam Neurological Exam: Altered, Awake - Psychiatric Exam Psychiatric exam: Flat Affect - Skin Skin Exam: Normal Color, Warm Assessment and Plan (1) Altered mental status Status: Acute (2) Sepsis Status: Acute (3) UTI (urinary tract infection) Status: Acute (4) CHF (congestive heart failure) Status: Chronic (5) History of B-cell lymphoma Status: Chronic (6) Parkinson disease Status: Chronic - Assessment and Plan (Free Text) Assessment: SEPSIS -UROSEPSIS RECURRENT +VE VRE/pROTEUS MIRABILIS. S/P THORACENTESIS 01/09/17-chf. jAUNDICE/TRANSAMINITIS -DRUG INDUCED. FAILURE TO THRIVE/ANOREXIA S/P PEG 01/01/17 LEUKOPENIA ? IMMUNE VS DRUGS ? SINEMET, ? ABX S/P RESPIRATORY FAILURE / PNEUMONIA CHF WITH RIGHT-SIDED LARGE EFFUSION S/P GRAM-NEGATIVE SEPSIS +VE ESBL +VE E. COLI . HISTORY OF B CELL- LYMPHOMA ( IN REMISSION ) PARKINSONISM. Plan : CONTINUE iv ZYVOX 60 MG EVERY 12 HOURLY. 01/10/17 CONTINUE iv AZACTAM 1 G EVERY 8 HOURLY.01/10/17 F/U CBC WITH DIFFERENTIAL PT. ON ZYVOX CAUSES BONE MARROW DEPRESSION. F/U LFTS / BMP . CASE DISCUSSED WITH PMD. FAMILY AT BEDSIDE . AVOID TYLENOL IF FEASIBLE. CONTACT PRECAUTIONS. PER PMD AND CONSULTANTS.
[2017-01-10] MEDS: Aztreonam 1 GM in Sodium Chloride 0.9% 100 ML IVPB SCH (17:10)
[2017-01-11] MEDS: Linezolid 600 mg in D5W 300 ml 600 MG/300 ML BAG IVPB SCH ×3 (00:10→22:38)
[2017-01-11] MEDS: Aztreonam 1 GM in Sodium Chloride 0.9% 100 ML IVPB SCH ×2 (01:15→09:03)
[2017-01-11] MEDS: Petrolatum Oint Foilpak (5 gm) TOP SCH ×3 (10:17→18:00)
[2017-01-11] MEDS: Pantoprazole 40 mg EC Tab PO SCH (10:17)
--- NOTE | 2017-01-11 11:14 | CP.PCM.PN ---
Subjective - Date & Time of Evaluation Date of Evaluation: 01/11/17 Time of Evaluation: 11:10 - Subjective Subjective: Patient still confused. Comfortable post pleural tap. Antibiotics choice quite difficult for the reason that her liver enzymes had been rising with Tygasil although it had been trending down, but Bilirubin is elevated still. Zyvox is the next best antibiotic. Objective - Vital Signs/Intake and Output Vital Signs (last 24 hours): Temp Pulse Resp BP Pulse Ox 98.4 F 110 H 21 102/73 97 01/11/17 08:00 01/11/17 08:00 01/11/17 08:00 01/11/17 08:00 01/11/17 08:00 Intake and Output: 01/11/17 01/11/17 06:59 18:59 Intake Total 1100 Balance 1100 - Medications Medications: Current Medications Emollient Ointment (Vaseline Oint) 5 gm TOP TID [facility] Last Admin: 01/11/17 10:17 Dose: 5 gm Aztreonam 1 gm/ Sodium (Chloride) 100 mls @ 200 mls/hr IVPB Q8H [facility] Last Admin: 01/11/17 09:03 Dose: 200 mls/hr Linezolid (Zyvox 600mg/300ml D5w) 600 mg in 300 mls @ 200 mls/hr IVPB Q12H [facility] Last Admin: 01/11/17 00:10 Dose: 200 mls/hr Metoprolol Tartrate (Lopressor) 12.5 mg PO BID [facility] Last Admin: 01/11/17 10:14 Dose: Not Given Pantoprazole Sodium (Protonix Ec Tab) 40 mg PO DAILY [facility] Last Admin: 01/11/17 10:17 Dose: 40 mg Polyethylene Glycol (Miralax) 17 gm PO Q8H PRN PRN Reason: Constipation Spironolactone (Aldactone) 25 mg PO DAILY [facility] Last Admin: 01/11/17 10:15 Dose: Not Given - Labs Labs: 01/10/17 07:35 01/10/17 07:35 PT 19.3 SECONDS (9.7-12.2) H 01/02/17 06:48 INR 1.7 01/02/17 06:48 APTT 32 SECONDS (21-34) 12/30/16 07:04 - Constitutional Appears: Confused, Chronically Ill - Head Exam Head Exam: ATRAUMATIC, NORMAL INSPECTION, NORMOCEPHALIC - Eye Exam Pupil Exam: PERRL - ENT Exam ENT Exam: Mucous Membranes Dry - Neck Exam Neck Exam: Normal Inspection - Respiratory Exam Respiratory Exam: Decreased Breath Sounds, NORMAL BREATHING PATTERN - Cardiovascular Exam Cardiovascular Exam: Tachycardia, REGULAR RHYTHM, +S1 - GI/Abdominal Exam GI & Abdominal Exam: Soft - Rectal Exam Rectal Exam: Deferred - Extremities Exam Extremities Exam: Normal Inspection - Back Exam Back Exam: NORMAL INSPECTION - Neurological Exam Neurological Exam: Altered, Awake - Skin Skin Exam: Dry, Intact, Normal Color, Warm Assessment and Plan (1) Altered mental status Status: Acute (2) Sepsis Status: Acute (3) UTI (urinary tract infection) Status: Acute (4) History of B-cell lymphoma Status: Chronic (5) Parkinson disease Status: Chronic (6) CHF (congestive heart failure) Status: Chronic (7) Congestive cardiomyopathy Status: Chronic (8) Pleural effusion Status: Acute (9) VRE infection (vancomycin resistant Enterococcus) Status: Acute (10) Infection due to ESBL-producing Escherichia coli Status: Acute (11) Liver enzyme elevation Status: Acute - Assessment and Plan (Free Text) Plan: Status --Acute. Prognosis guarded. Plan: Continue IV Azactam and Zyvox.
--- NOTE | 2017-01-11 14:29 | CP.PCM.PN ---
Subjective - Date & Time of Evaluation Date of Evaluation: 01/11/17 Time of Evaluation: 14:29 - Subjective Subjective: afebrile, awake, weak. G-tube feedings on hold as per GI noted Patient eating very poorly. lfts -fluctuating. WBC 4.3 h/h stable Platelets 95 k-decreasing. Niece at her bedside. Objective - Vital Signs/Intake and Output Vital Signs (last 24 hours): Temp Pulse Resp BP Pulse Ox 98.4 F 110 H 21 102/73 97 01/11/17 08:00 01/11/17 08:00 01/11/17 08:00 01/11/17 08:00 01/11/17 08:00 Intake and Output: 01/11/17 01/11/17 06:59 18:59 Intake Total 1100 Balance 1100 - Medications Medications: Current Medications Emollient Ointment (Vaseline Oint) 5 gm TOP TID [facility] Last Admin: 01/11/17 13:39 Dose: 5 gm Aztreonam 1 gm/ Sodium (Chloride) 100 mls @ 200 mls/hr IVPB Q8H [facility] Last Admin: 01/11/17 09:03 Dose: 200 mls/hr Linezolid (Zyvox 600mg/300ml D5w) 600 mg in 300 mls @ 200 mls/hr IVPB Q12H [facility] Last Admin: 01/11/17 12:17 Dose: 200 mls/hr Metoprolol Tartrate (Lopressor) 12.5 mg PO BID [facility] Last Admin: 01/11/17 10:14 Dose: Not Given Pantoprazole Sodium (Protonix Ec Tab) 40 mg PO DAILY [facility] Last Admin: 01/11/17 10:17 Dose: 40 mg Polyethylene Glycol (Miralax) 17 gm PO Q8H PRN PRN Reason: Constipation Spironolactone (Aldactone) 25 mg PO DAILY [facility] Last Admin: 01/11/17 10:15 Dose: Not Given - Labs Labs: 01/10/17 07:35 01/10/17 07:35 PT 19.3 SECONDS (9.7-12.2) H 01/02/17 06:48 INR 1.7 01/02/17 06:48 APTT 32 SECONDS (21-34) 12/30/16 07:04 - Constitutional Appears: No Acute Distress, Chronically Ill - Head Exam Head Exam: NORMAL INSPECTION - Eye Exam Eye Exam: EOMI, PERRL, Scleral icterus - ENT Exam ENT Exam: Normal Oropharynx - Neck Exam Neck Exam: Normal Inspection. absent: Meningismus - Respiratory Exam Respiratory Exam: Decreased Breath Sounds - Cardiovascular Exam Cardiovascular Exam: Tachycardia, +S1, +S2 - GI/Abdominal Exam GI & Abdominal Exam: Soft (peg in place.), Normal Bowel Sounds - Extremities Exam Extremities Exam: absent: Calf Tenderness, Pedal Edema - Neurological Exam Neurological Exam: Altered, Awake - Psychiatric Exam Psychiatric exam: Flat Affect - Skin Skin Exam: Normal Color, Warm Assessment and Plan (1) Altered mental status Status: Acute (2) Sepsis Status: Acute (3) UTI (urinary tract infection) Status: Acute (4) CHF (congestive heart failure) Status: Chronic (5) History of B-cell lymphoma Status: Chronic (6) Parkinson disease Status: Chronic - Assessment and Plan (Free Text) Assessment: SEPSIS -UROSEPSIS RECURRENT +VE VRE/pROTEUS MIRABILIS. S/P THORACENTESIS 01/09/17-chf. jAUNDICE/TRANSAMINITIS -DRUG INDUCED. FAILURE TO THRIVE/ANOREXIA S/P PEG 01/01/17 LEUKOPENIA ? IMMUNE VS DRUGS ? SINEMET, ? ABX S/P RESPIRATORY FAILURE / PNEUMONIA CHF WITH RIGHT-SIDED LARGE EFFUSION S/P GRAM-NEGATIVE SEPSIS +VE ESBL +VE E. COLI . HISTORY OF B CELL- LYMPHOMA ( IN REMISSION ) PARKINSONISM. Plan : CONTINUE iv ZYVOX 600 MG EVERY 12 HOURLY. 01/10/17 DECREASE iv AZACTAM 1 G EVERY 12 HOURLY.01/10/17. REPEAT U/A AND URINE CULTURES STRAIGHT CATHETER TODAY CLEAN-CATCH. F/U CBC WITH DIFFERENTIAL PT. ON ZYVOX CAUSES BONE MARROW DEPRESSION. F/U LFTS / BMP . CASE DISCUSSED WITH STAFF/ AND NEICE.
[2017-01-11 14:37] LABS: BASO % 0.2 % (0.0-2.0); HEMATOCRIT 37.8 % (34.0-47.0); LYMPH # 0.9 K/uL (1.0-4.3); MEAN CELL VOLUME 98.8 fL (81.0-99.0); MEAN CORPUSCULAR HEMOGLOBIN 32.5 pg (27.0-31.0); MEAN CORPUSCULAR HGB CONC 32.9 g/dL (33.0-37.0); MEAN PLATELET VOLUME 11.6 fL (7.2-11.7); MONO # 0.4 K/uL (0.0-0.8); MONO % 8.5 % (0.0-10.0); NRBC % 0.8 % (0.0-2.0); RED CELL DISTRIBUTION WIDTH 26.6 % (11.5-14.5); WHITE BLOOD COUNT 4.3 K/uL (4.8-10.8)
[2017-01-11 15:28] LABS: ALB/GLOB RATIO 1.4 (1.0-2.1); ALKALINE PHOSPHATASE 279 U/L (38-126); ALT/SGPT 61 U/L (9-52); AST/SGOT 49 U/L (14-36); BILIRUBIN,TOTAL 3.6 mg/dL (0.2-1.3); BLOOD UREA NITROGEN 54 mg/dL (7-17); CALCIUM 8.1 mg/dl (8.6-10.4); CARBON DIOXIDE 25 mmol/L (22-30); CHLORIDE 104 mmol/L (98-107); GFR AFRICAN-AMERICAN > 60; GLUCOSE,RANDOM 82 mg/dL (65-105); POTASSIUM 3.6 mmol/L (3.6-5.2); SODIUM 139 mmol/L (132-148); TOTAL PROTEIN 4.7 g/dL (6.3-8.3)
--- NOTE | 2017-01-11 15:52 | CP.PCM.PN ---
Subjective - Date & Time of Evaluation Date of Evaluation: 01/11/17 Time of Evaluation: 15:49 - Subjective Subjective: Covering Dr Anguiano CC: GTube leakage Feeds on hold. LFTs fluctuating Pt can not provide history Objective - Vital Signs/Intake and Output Vital Signs (last 24 hours): Temp Pulse Resp BP Pulse Ox 98.4 F 110 H 21 102/73 97 01/11/17 08:00 01/11/17 08:00 01/11/17 08:00 01/11/17 08:00 01/11/17 08:00 Intake and Output: 01/11/17 01/11/17 06:59 18:59 Intake Total 1100 Balance 1100 - Medications Medications: Current Medications Emollient Ointment (Vaseline Oint) 5 gm TOP TID [facility] Last Admin: 01/11/17 13:39 Dose: 5 gm Linezolid (Zyvox 600mg/300ml D5w) 600 mg in 300 mls @ 200 mls/hr IVPB Q12H [facility] Last Admin: 01/11/17 12:17 Dose: 200 mls/hr Aztreonam 1 gm/ Sodium (Chloride) 50 mls @ 100 mls/hr IVPB Q8H [facility] Metoprolol Tartrate (Lopressor) 12.5 mg PO BID [facility] Last Admin: 01/11/17 10:14 Dose: Not Given Pantoprazole Sodium (Protonix Ec Tab) 40 mg PO DAILY [facility] Last Admin: 01/11/17 10:17 Dose: 40 mg Polyethylene Glycol (Miralax) 17 gm PO Q8H PRN PRN Reason: Constipation Spironolactone (Aldactone) 25 mg PO DAILY [facility] Last Admin: 01/11/17 10:15 Dose: Not Given - Labs Labs: 01/11/17 14:32 01/11/17 14:32 PT 19.3 SECONDS (9.7-12.2) H 01/02/17 06:48 INR 1.7 01/02/17 06:48 APTT 32 SECONDS (21-34) 12/30/16 07:04 - Constitutional Appears: Chronically Ill - Head Exam Head Exam: NORMOCEPHALIC - Respiratory Exam Respiratory Exam: NORMAL BREATHING PATTERN - Cardiovascular Exam Cardiovascular Exam: REGULAR RHYTHM - GI/Abdominal Exam GI & Abdominal Exam: Soft. absent: Tenderness (PEG in place, dry site without leakage. Gauze is saturated with bilious fluid) Assessment and Plan (1) Abnormal liver enzymes Assessment & Plan: Generally trending down. Drug induced Monitor LFTs Status: Acute (2) Dysphagia Assessment & Plan: PEG done Status: Chronic (3) PEG tube malfunction Assessment & Plan: Leakage Will monitor May restart feeds at 30 ml/hr and monitor for leakage Status: Resolved
--- NOTE | 2017-01-11 17:03 | RAD ---
PROCEDURE: CHEST RADIOGRAPH, 1 VIEW HISTORY: Post pleural tap COMPARISON: Chest radiograph 01/07/2017. FINDINGS: LUNGS: Right-sided left port catheter unchanged in position. Marked reduction in the inferior right pulmonary infiltrate or atelectasis with left basilar airspace disease unchanged. PLEURA: Trace of pleural effusion not excluded. None is seen the right. No pneumothorax bilaterally once again. CARDIOVASCULAR: Cardiomegaly is unchanged. No pulmonary vascular derangement. OSSEOUS STRUCTURES: No significant abnormalities. VISUALIZED UPPER ABDOMEN: Normal. OTHER FINDINGS: None. IMPRESSION: Marked improvement in right basilar infiltrate with trace residual remaining. Left basilar atelectasis or infiltrate is unchanged. Trace left pleural effusion not excluded.
--- NOTE | 2017-01-12 08:02 | CP.PCM.PN ---
Subjective - Date & Time of Evaluation Date of Evaluation: 01/12/17 Time of Evaluation: 07:50 - Subjective Subjective: Confused. Patient not eating. Tube feeding on hold because of a leak at the tube site. Platelet count is 95,000. Liver enzymes are on a downward trend. Objective - Vital Signs/Intake and Output Vital Signs (last 24 hours): Temp Pulse Resp BP Pulse Ox 97.8 F 113 H 18 98/59 L 94 L 01/11/17 23:30 01/12/17 04:00 01/11/17 23:30 01/11/17 23:30 01/11/17 23:30 Intake and Output: 01/12/17 01/12/17 06:59 18:59 Intake Total 750 Balance 750 - Medications Medications: Current Medications Emollient Ointment (Vaseline Oint) 5 gm TOP TID [facility] Last Admin: 01/11/17 18:00 Dose: 5 gm Linezolid (Zyvox 600mg/300ml D5w) 600 mg in 300 mls @ 200 mls/hr IVPB Q12H [facility] Last Admin: 01/11/17 22:38 Dose: 200 mls/hr Aztreonam 1 gm/ Dextrose 50 mls @ 100 mls/hr IVPB Q12H [facility] Last Admin: 01/12/17 06:43 Dose: 100 mls/hr Metoprolol Tartrate (Lopressor) 12.5 mg PO BID [facility] Last Admin: 01/11/17 19:00 Dose: Not Given Pantoprazole Sodium (Protonix Ec Tab) 40 mg PO DAILY [facility] Last Admin: 01/11/17 10:17 Dose: 40 mg Polyethylene Glycol (Miralax) 17 gm PO Q8H PRN PRN Reason: Constipation Spironolactone (Aldactone) 25 mg PO DAILY [facility] Last Admin: 01/11/17 10:15 Dose: Not Given - Labs Labs: 01/11/17 14:32 01/11/17 14:32 PT 19.3 SECONDS (9.7-12.2) H 01/02/17 06:48 INR 1.7 01/02/17 06:48 APTT 32 SECONDS (21-34) 12/30/16 07:04 - Constitutional Appears: No Acute Distress, Chronically Ill - Head Exam Head Exam: ATRAUMATIC, NORMAL INSPECTION - Eye Exam Pupil Exam: PERRL - Respiratory Exam Respiratory Exam: Clear to Ausculation Bilateral - Cardiovascular Exam Cardiovascular Exam: Tachycardia, REGULAR RHYTHM, +S1, +S2 - GI/Abdominal Exam GI & Abdominal Exam: Normal Bowel Sounds Additional comments: presence of clear fluid around the tube. - Rectal Exam Rectal Exam: Deferred - Extremities Exam Extremities Exam: Normal Inspection - Back Exam Back Exam: NORMAL INSPECTION - Neurological Exam Neurological Exam: Altered - Skin Skin Exam: Dry, Intact, Warm Assessment and Plan (1) Altered mental status Status: Acute (2) Sepsis Status: Acute (3) UTI (urinary tract infection) Status: Acute (4) History of B-cell lymphoma Status: Chronic (5) Parkinson disease Status: Chronic (6) CHF (congestive heart failure) Status: Chronic (7) Congestive cardiomyopathy Status: Chronic (8) Pleural effusion Status: Acute (9) VRE infection (vancomycin resistant Enterococcus) Status: Acute (10) Infection due to ESBL-producing Escherichia coli Status: Acute (11) Liver enzyme elevation Status: Acute - Assessment and Plan (Free Text) Plan: Plan: Feeding on hold. Continue IV Azactam, and ZYvox. Will start on IV at 30 cc/hourly.
[2017-01-12] MEDS ORDERED: Dextrose 5%/0.45% NS 1,000 ML IV SCH (08:15)
[2017-01-12 08:53] LABS: RBC URINE < 1 /hpf (0-3); URINE BACTERIA RARE (<OCC); URINE BILIRUBIN NEGATIVE (NEGATIVE); URINE BLOOD NEGATIVE (NEGATIVE); URINE COLOR Yellow (YELLOW); URINE GLUCOSE (UA) NORMAL (Normal); URINE KETONE NEGATIVE (NEGATIVE); URINE LEUKOCYTE ESTERASE NEG Leu/uL (Negative); URINE PROTEIN NEGATIVE (NEGATIVE); URINE UROBILINOGEN NORMAL mg/dL (0.2-1.0); WBC URINE 2 /hpf (0-5)
[2017-01-12 09:47] LABS: BASO % 0.1 % (0.0-2.0); EOS % 0.3 % (0.0-4.0); HEMATOCRIT 36.4 % (34.0-47.0); LYMPH # 0.9 K/uL (1.0-4.3); LYMPH % 22.8 % (20.0-40.0); MEAN CELL VOLUME 97.9 fL (81.0-99.0); MEAN CORPUSCULAR HEMOGLOBIN 32.6 pg (27.0-31.0); MEAN CORPUSCULAR HGB CONC 33.3 g/dL (33.0-37.0); MONO # 0.3 K/uL (0.0-0.8); MONO % 6.8 % (0.0-10.0); NRBC % 0.8 % (0.0-2.0); WHITE BLOOD COUNT 3.9 K/uL (4.8-10.8)
[2017-01-12] MEDS: Pantoprazole 40 mg EC Tab PO SCH (09:58)
[2017-01-12] MEDS: Petrolatum Oint Foilpak (5 gm) TOP SCH ×3 (09:58→17:59)
--- NOTE | 2017-01-12 11:15 | CP.PCM.PN ---
Subjective - Date & Time of Evaluation Date of Evaluation: 01/12/17 Time of Evaluation: 11:12 - Subjective Subjective: Covering Dr Anguiano CC: Gastrostomy leakage Discussed with TRAN Argueta- GT site and gauze are presently dry, but there was leakage noted this morning, despite feeds being witheld. Patient is unreliable historian. Daughter present. Objective - Vital Signs/Intake and Output Vital Signs (last 24 hours): Temp Pulse Resp BP Pulse Ox 97.0 F L 83 20 93/60 L 96 01/12/17 08:03 01/12/17 09:46 01/12/17 09:46 01/12/17 09:46 01/12/17 09:46 Intake and Output: 01/12/17 01/12/17 06:59 18:59 Intake Total 750 Balance 750 - Medications Medications: Current Medications Emollient Ointment (Vaseline Oint) 5 gm TOP TID [facility] Last Admin: 01/12/17 09:58 Dose: 5 gm Linezolid (Zyvox 600mg/300ml D5w) 600 mg in 300 mls @ 200 mls/hr IVPB Q12H [facility] Last Admin: 01/11/17 22:38 Dose: 200 mls/hr Aztreonam 1 gm/ Dextrose 50 mls @ 100 mls/hr IVPB Q12H [facility] Last Admin: 01/12/17 06:43 Dose: 100 mls/hr Dextrose/Sodium Chloride (Dextrose 5%/0.45% Ns 1000 Ml) 1,000 mls @ 30 mls/hr IV .Q24H [facility] Last Admin: 01/12/17 09:00 Dose: 30 mls/hr Metoprolol Tartrate (Lopressor) 12.5 mg PO BID [facility] Last Admin: 01/12/17 09:46 Dose: Not Given Pantoprazole Sodium (Protonix Ec Tab) 40 mg PO DAILY [facility] Last Admin: 01/12/17 09:58 Dose: 40 mg Polyethylene Glycol (Miralax) 17 gm PO Q8H PRN PRN Reason: Constipation Spironolactone (Aldactone) 25 mg PO DAILY [facility] Last Admin: 01/12/17 09:46 Dose: Not Given - Labs Labs: 01/12/17 09:39 01/11/17 14:32 PT 19.3 SECONDS (9.7-12.2) H 01/02/17 06:48 INR 1.7 01/02/17 06:48 APTT 32 SECONDS (21-34) 12/30/16 07:04 - Constitutional Appears: Chronically Ill - Respiratory Exam Respiratory Exam: NORMAL BREATHING PATTERN - Cardiovascular Exam Cardiovascular Exam: REGULAR RHYTHM - GI/Abdominal Exam GI & Abdominal Exam: Soft. absent: Tenderness (GT site clean, dry and intact. Bolster tightened.) Assessment and Plan (1) Abnormal liver enzymes Assessment & Plan: Improving Monitor periodically Status: Acute (2) Dysphagia Assessment & Plan: PEG done Status: Chronic (3) PEG tube malfunction Assessment & Plan: Leakage around tube per RN. ? gastric contents vs. ascites? Rec; Sonogram to look for ascites. Restart feeds at 30 ml/hr and monitor the site. Discussed with RN. Status: Resolved
[2017-01-12] MEDS: Linezolid 600 mg in D5W 300 ml 600 MG/300 ML BAG IVPB SCH (12:50)
--- NOTE | 2017-01-12 13:02 | US ---
Abdominal ultrasound History: Ascites. Comparison: 01/08/2017 Technique: Real-time sonography was performed through the abdomen. Findings: Liver: 15.7 centimeters in length. Increased echogenicity of the hepatic parenchymal cortex suggestive for fatty infiltration versus hepatic parenchymal disease. Clinical correlation. Gallbladder: Thickened and edematous gallbladder wall measuring up to 5 millimeters. No gross calculi or sludge. Negative sonographic Gallagher's sign. Limited visualization of the pancreas. Visualized portions appear grossly preserved. Common bile duct measures 2.5 millimeters, within normal limits. Spleen measures 6.9 centimeters in length, diminutive. Visualized aorta and IVC are preserved. Right kidney: 9.9 x 3.9 x 4.3 centimeters. No calculi or hydronephrosis. Left Kidney: 10.4 x 4.4 x 4.7 centimeters. No calculi or hydronephrosis. Ascites noted within the upper abdomen. Right pleural effusion noted. Impression: Abdominal ascites. Right pleural effusion. Thickened and edematous gallbladder wall without evidence of gross calculi or sludge. Negative sonographic Gallagher's sign. Increased echogenicity of the hepatic parenchymal cortex suggestive for fatty infiltration versus hepatic parenchymal disease. Clinical correlation. Limited visualization of the pancreas. Diminutive spleen.
--- NOTE | 2017-01-12 13:13 | CP.PCM.PN ---
Subjective - Date & Time of Evaluation Date of Evaluation: 01/12/17 Time of Evaluation: 13:12 - Subjective Subjective: afebrile, awake, weak. G-tube feedings on hold as per GI noted PER STAFF DRESSING PEG SITE NOTED TO BE LEAKING SEEN BY GI . US ABDOMEN ORDERED R/O LEAKING ASCITES-P Patient eating very poorly. CXR 01/11/17. NOTED. MARKED IMPROVEMENT RIGHT BASILAR INFILTRATE WITH INCREASED RESIDUAL LEFT BASILAR ATELECTASIS/OR INFILTRATE. ?lEFT PLEURAL EFFUSION LABS REVIEWED. 01/12/17 wbc 3.9 PLATELETS 92 h&h 12.1/36.4 LFTS TOTAL BILI 3.6, TRANSAMINASES IMPROVING. cREATININE 0.8/bun 54. Objective - Vital Signs/Intake and Output Vital Signs (last 24 hours): Temp Pulse Resp BP Pulse Ox 97.0 F L 83 20 93/60 L 96 01/12/17 08:03 01/12/17 09:46 01/12/17 09:46 01/12/17 09:46 01/12/17 09:46 Intake and Output: 01/12/17 01/12/17 06:59 18:59 Intake Total 750 Balance 750 - Medications Medications: Current Medications Emollient Ointment (Vaseline Oint) 5 gm TOP TID [facility] Last Admin: 01/12/17 09:58 Dose: 5 gm Linezolid (Zyvox 600mg/300ml D5w) 600 mg in 300 mls @ 200 mls/hr IVPB Q12H [facility] Last Admin: 01/12/17 12:50 Dose: 200 mls/hr Aztreonam 1 gm/ Dextrose 50 mls @ 100 mls/hr IVPB Q12H [facility] Last Admin: 01/12/17 06:43 Dose: 100 mls/hr Dextrose/Sodium Chloride (Dextrose 5%/0.45% Ns 1000 Ml) 1,000 mls @ 30 mls/hr IV .Q24H [facility] Last Admin: 01/12/17 09:00 Dose: 30 mls/hr Metoprolol Tartrate (Lopressor) 12.5 mg PO BID [facility] Last Admin: 01/12/17 09:46 Dose: Not Given Pantoprazole Sodium (Protonix Ec Tab) 40 mg PO DAILY [facility] Last Admin: 01/12/17 09:58 Dose: 40 mg Polyethylene Glycol (Miralax) 17 gm PO Q8H PRN PRN Reason: Constipation Spironolactone (Aldactone) 25 mg PO DAILY [facility] Last Admin: 01/12/17 09:46 Dose: Not Given - Labs Labs: 01/12/17 09:39 01/11/17 14:32 PT 19.3 SECONDS (9.7-12.2) H 01/02/17 06:48 INR 1.7 01/02/17 06:48 APTT 32 SECONDS (21-34) 12/30/16 07:04 - Constitutional Appears: No Acute Distress, Cachectic, Chronically Ill - Head Exam Head Exam: NORMAL INSPECTION - Eye Exam Eye Exam: PERRL - ENT Exam ENT Exam: Normal Oropharynx - Neck Exam Neck Exam: Normal Inspection - Respiratory Exam Respiratory Exam: Rales (FEW BASILAR RALES.) - Cardiovascular Exam Cardiovascular Exam: REGULAR RHYTHM, +S1, +S2 - GI/Abdominal Exam GI & Abdominal Exam: Soft, Normal Bowel Sounds (PEG IN PLACE) - Extremities Exam Extremities Exam: absent: Calf Tenderness, Pedal Edema - Neurological Exam Neurological Exam: Altered, Awake - Psychiatric Exam Psychiatric exam: Flat Affect - Skin Skin Exam: Normal Color, Warm Assessment and Plan (1) Altered mental status Status: Acute (2) Sepsis Status: Acute (3) UTI (urinary tract infection) Status: Acute (4) CHF (congestive heart failure) Status: Chronic (5) History of B-cell lymphoma Status: Chronic (6) Parkinson disease Status: Chronic - Assessment and Plan (Free Text) Assessment: SEPSIS -UROSEPSIS RECURRENT +VE VRE/pROTEUS MIRABILIS. S/P THORACENTESIS 01/09/17-chf. jAUNDICE/TRANSAMINITIS -DRUG INDUCED FAILURE TO THRIVE/ANOREXIA S/P PEG 01/01/17 LEUKOPENIA ? IMMUNE VS DRUGS ? SINEMET, ? ABX S/P RESPIRATORY FAILURE / PNEUMONIA CHF WITH RIGHT-SIDED LARGE EFFUSION S/P GRAM-NEGATIVE SEPSIS +VE ESBL +VE E. COLI . HISTORY OF B CELL- LYMPHOMA ( IN REMISSION ) PARKINSONISM. Plan : CONTINUE iv ZYVOX 600 MG EVERY 12 HOURLY. 01/10/17 DECREASE iv AZACTAM 1 G EVERY 12 HOURLY.01/10/17. REPEAT U/A AND URINE CULTURES STRAIGHT CATHETER TODAY CLEAN-CATCH.-P F/U ABDOMINAL US ORDERED BY GI. PEG CARE PER GI. F/U CBC / BMP/LFTS ON SATURDAY. CASE DISCUSSED WITH STAFF.
[2017-01-13] MEDS: Linezolid 600 mg in D5W 300 ml 600 MG/300 ML BAG IVPB SCH ×3 (00:27→22:37)
[2017-01-13] MEDS: Petrolatum Oint Foilpak (5 gm) TOP SCH ×3 (09:43→18:28)
[2017-01-13] MEDS: Pantoprazole 40 mg EC Tab PO SCH (10:08)
--- NOTE | 2017-01-13 11:29 | CP.PCM.PN ---
Subjective - Date & Time of Evaluation Date of Evaluation: 01/13/17 Time of Evaluation: 11:26 - Subjective Subjective: Covering Dr Anguiano CC: follow up GTube leak No reported leakage since feeds restarted yesterday Sonogram shows ascites Feedings well tolerated DNR/DNI Objective - Vital Signs/Intake and Output Vital Signs (last 24 hours): Temp Pulse Resp BP Pulse Ox 98.5 F 104 H 20 95/68 L 99 01/13/17 07:59 01/13/17 08:31 01/13/17 07:59 01/13/17 07:59 01/13/17 07:59 Intake and Output: 01/13/17 01/13/17 06:59 18:59 Intake Total 290 Balance 290 - Medications Medications: Current Medications Emollient Ointment (Vaseline Oint) 5 gm TOP TID [facility] Last Admin: 01/13/17 09:43 Dose: 5 gm Linezolid (Zyvox 600mg/300ml D5w) 600 mg in 300 mls @ 200 mls/hr IVPB Q12H [facility] Last Admin: 01/13/17 00:27 Dose: 200 mls/hr Aztreonam 1 gm/ Dextrose 50 mls @ 100 mls/hr IVPB Q12H [facility] Last Admin: 01/13/17 05:14 Dose: 100 mls/hr Metoprolol Tartrate (Lopressor) 12.5 mg PO BID [facility] Last Admin: 01/13/17 09:38 Dose: Not Given Pantoprazole Sodium (Protonix Ec Tab) 40 mg PO DAILY [facility] Last Admin: 01/13/17 10:08 Dose: 40 mg Polyethylene Glycol (Miralax) 17 gm PO Q8H PRN PRN Reason: Constipation Spironolactone (Aldactone) 25 mg PO DAILY [facility] Last Admin: 01/13/17 09:39 Dose: Not Given - Labs Labs: 01/12/17 09:39 01/11/17 14:32 PT 19.3 SECONDS (9.7-12.2) H 01/02/17 06:48 INR 1.7 01/02/17 06:48 APTT 32 SECONDS (21-34) 12/30/16 07:04 - Constitutional Appears: No Acute Distress, Chronically Ill - Head Exam Head Exam: NORMOCEPHALIC - Cardiovascular Exam Cardiovascular Exam: REGULAR RHYTHM - GI/Abdominal Exam GI & Abdominal Exam: Soft. absent: Tenderness (GT clean dry and intact. Feeds infusing without a problem) Assessment and Plan (1) Abnormal liver enzymes Assessment & Plan: Likely drug induced Will repeat and monitor Status: Acute (2) Dysphagia Assessment & Plan: S/P PEG Status: Chronic (3) PEG tube malfunction Assessment & Plan: Leakage appears to have resolved Will monitor May increase feeding rate Status: Resolved
--- NOTE | 2017-01-13 14:18 | CP.PCM.PN ---
Subjective - Date & Time of Evaluation Date of Evaluation: 01/13/17 Time of Evaluation: 02:10 - Subjective Subjective: Patient is very confused Moaning. Very uncomfortable today. Liver enzymes are going down. Platelet count is 92,000. Objective - Vital Signs/Intake and Output Vital Signs (last 24 hours): Temp Pulse Resp BP Pulse Ox 98.5 F 104 H 20 95/68 L 99 01/13/17 07:59 01/13/17 08:31 01/13/17 07:59 01/13/17 07:59 01/13/17 07:59 Intake and Output: 01/13/17 01/13/17 06:59 18:59 Intake Total 290 Balance 290 - Medications Medications: Current Medications Emollient Ointment (Vaseline Oint) 5 gm TOP TID [facility] Last Admin: 01/13/17 13:57 Dose: 5 gm Linezolid (Zyvox 600mg/300ml D5w) 600 mg in 300 mls @ 200 mls/hr IVPB Q12H [facility] Last Admin: 01/13/17 12:08 Dose: 200 mls/hr Aztreonam 1 gm/ Dextrose 50 mls @ 100 mls/hr IVPB Q12H [facility] Last Admin: 01/13/17 05:14 Dose: 100 mls/hr Metoprolol Tartrate (Lopressor) 12.5 mg PO BID [facility] Last Admin: 01/13/17 09:38 Dose: Not Given Pantoprazole Sodium (Protonix Ec Tab) 40 mg PO DAILY [facility] Last Admin: 01/13/17 10:08 Dose: 40 mg Polyethylene Glycol (Miralax) 17 gm PO Q8H PRN PRN Reason: Constipation Spironolactone (Aldactone) 25 mg PO DAILY [facility] Last Admin: 01/13/17 09:39 Dose: Not Given - Labs Labs: 01/12/17 09:39 01/11/17 14:32 PT 19.3 SECONDS (9.7-12.2) H 01/02/17 06:48 INR 1.7 01/02/17 06:48 APTT 32 SECONDS (21-34) 12/30/16 07:04 - Constitutional Appears: Confused, Chronically Ill - Head Exam Head Exam: ATRAUMATIC, NORMAL INSPECTION - Eye Exam Eye Exam: Normal appearance - ENT Exam ENT Exam: Mucous Membranes Dry - Neck Exam Neck Exam: Normal Inspection - Cardiovascular Exam Cardiovascular Exam: Tachycardia, +S1, +S2 - GI/Abdominal Exam GI & Abdominal Exam: Soft, Normal Bowel Sounds - Rectal Exam Rectal Exam: Deferred - Extremities Exam Extremities Exam: Full ROM - Back Exam Back Exam: NORMAL INSPECTION - Neurological Exam Neurological Exam: Altered - Skin Skin Exam: Intact Assessment and Plan (1) Altered mental status Status: Acute (2) Sepsis Status: Acute (3) UTI (urinary tract infection) Status: Acute (4) History of B-cell lymphoma Status: Chronic (5) Parkinson disease Status: Chronic (6) CHF (congestive heart failure) Status: Chronic (7) Congestive cardiomyopathy Status: Chronic (8) Pleural effusion Status: Acute (9) VRE infection (vancomycin resistant Enterococcus) Status: Acute (10) Infection due to ESBL-producing Escherichia coli Status: Acute (11) Liver enzyme elevation Status: Acute - Assessment and Plan (Free Text) Plan: Plan: Patient now on DNR and DNI. I had a conference with the daughter yesterday and I have explained to her the gravity of her mother's medical condition being she has a a very low EF resulting in her heart not nafisa efficiently to oxygenate her vital organs. She understood this and accepted the fact that her mother will not be able to recover from this, so she consennted to give the order of DNR and DNI. We will continue to feed the patient through the PEG and continue to give the antibiotics and supportive care.
--- NOTE | 2017-01-13 17:17 | CP.PCM.PN ---
Subjective - Date & Time of Evaluation Date of Evaluation: 01/13/17 Time of Evaluation: 17:17 - Subjective Subjective: afebrile, awake, weak. MILDLY DYSPNEIC CONFUSED AT TIMES RESTARTED ON FEEDINGS AND TOLERATING IT. US ABDOMEN +VE ASCITES REPEAT U/A 01/12/17 -VE Objective - Vital Signs/Intake and Output Vital Signs (last 24 hours): Temp Pulse Resp BP Pulse Ox 97.5 F L 120 H 20 102/72 96 01/13/17 15:41 01/13/17 15:41 01/13/17 15:41 01/13/17 15:41 01/13/17 15:41 Intake and Output: 01/13/17 01/13/17 06:59 18:59 Intake Total 290 300 Balance 290 300 - Medications Medications: Current Medications Emollient Ointment (Vaseline Oint) 5 gm TOP TID [facility] Last Admin: 01/13/17 13:57 Dose: 5 gm Linezolid (Zyvox 600mg/300ml D5w) 600 mg in 300 mls @ 200 mls/hr IVPB Q12H [facility] Last Admin: 01/13/17 12:08 Dose: 200 mls/hr Aztreonam 1 gm/ Dextrose 50 mls @ 100 mls/hr IVPB Q12H [facility] Last Admin: 01/13/17 05:14 Dose: 100 mls/hr Metoprolol Tartrate (Lopressor) 12.5 mg PO BID [facility] Last Admin: 01/13/17 09:38 Dose: Not Given Pantoprazole Sodium (Protonix Ec Tab) 40 mg PO DAILY [facility] Last Admin: 01/13/17 10:08 Dose: 40 mg Polyethylene Glycol (Miralax) 17 gm PO [facility] Spironolactone (Aldactone) 25 mg PO DAILY [facility] Last Admin: 01/13/17 09:39 Dose: Not Given - Labs Labs: 01/12/17 09:39 01/11/17 14:32 PT 19.3 SECONDS (9.7-12.2) H 01/02/17 06:48 INR 1.7 01/02/17 06:48 APTT 32 SECONDS (21-34) 12/30/16 07:04 - Constitutional Appears: Cachectic, Chronically Ill - Head Exam Head Exam: NORMAL INSPECTION - Eye Exam Eye Exam: EOMI, PERRL - ENT Exam ENT Exam: Normal Oropharynx - Neck Exam Neck Exam: Normal Inspection - Respiratory Exam Respiratory Exam: Decreased Breath Sounds - Cardiovascular Exam Cardiovascular Exam: Tachycardia, REGULAR RHYTHM, +S1, +S2 - GI/Abdominal Exam GI & Abdominal Exam: Soft, Normal Bowel Sounds (PEG IN PLACE.) - Extremities Exam Extremities Exam: absent: Calf Tenderness, Tenderness - Neurological Exam Neurological Exam: Altered - Psychiatric Exam Psychiatric exam: Flat Affect - Skin Skin Exam: Normal Color, Warm Assessment and Plan (1) Altered mental status Status: Acute (2) Sepsis Status: Acute (3) UTI (urinary tract infection) Status: Acute (4) CHF (congestive heart failure) Status: Chronic (5) History of B-cell lymphoma Status: Chronic (6) Parkinson disease Status: Chronic - Assessment and Plan (Free Text) Assessment: SEPSIS -UROSEPSIS RECURRENT +VE VRE/pROTEUS MIRABILIS. S/P THORACENTESIS 01/09/17-chf. jAUNDICE/TRANSAMINITIS -DRUG INDUCED FAILURE TO THRIVE/ANOREXIA S/P PEG 01/01/17 LEUKOPENIA ? IMMUNE VS DRUGS ? SINEMET, ? ABX S/P RESPIRATORY FAILURE / PNEUMONIA CHF WITH RIGHT-SIDED LARGE EFFUSION S/P GRAM-NEGATIVE SEPSIS +VE ESBL +VE E. COLI . HISTORY OF B CELL- LYMPHOMA ( IN REMISSION ) PARKINSONISM. Plan : CONTINUE iv ZYVOX 600 MG EVERY 12 HOURLY. 01/10/17 DECREASE iv AZACTAM 1 G EVERY 12 HOURLY.01/10/17. REPEAT U/A AND URINE CULTURES STRAIGHT CATHETER TODAY CLEAN-CATCH.-P PEG CARE PER GI. F/U CBC / BMP/LFTS ON SATURDAY.
--- NOTE | 2017-01-13 17:39 | CP.PCM.PN ---
Subjective - Date & Time of Evaluation Date of Evaluation: 01/13/17 Time of Evaluation: 14:10 - Subjective Subjective: Patient seen and examined. Lying comfortably Lethargic Dyspnea on minimal exertion Tolerating feeding Objective - Vital Signs/Intake and Output Vital Signs (last 24 hours): Temp Pulse Resp BP Pulse Ox 97.5 F L 120 H 20 102/72 96 01/13/17 15:41 01/13/17 15:41 01/13/17 15:41 01/13/17 15:41 01/13/17 15:41 Intake and Output: 01/13/17 01/13/17 06:59 18:59 Intake Total 290 300 Balance 290 300 - Medications Medications: Current Medications Emollient Ointment (Vaseline Oint) 5 gm TOP TID [facility] Last Admin: 01/13/17 13:57 Dose: 5 gm Linezolid (Zyvox 600mg/300ml D5w) 600 mg in 300 mls @ 200 mls/hr IVPB Q12H [facility] Last Admin: 01/13/17 12:08 Dose: 200 mls/hr Aztreonam 1 gm/ Dextrose 50 mls @ 100 mls/hr IVPB Q12H [facility] Last Admin: 01/13/17 05:14 Dose: 100 mls/hr Metoprolol Tartrate (Lopressor) 12.5 mg PO BID [facility] Last Admin: 01/13/17 09:38 Dose: Not Given Pantoprazole Sodium (Protonix Ec Tab) 40 mg PO DAILY [facility] Last Admin: 01/13/17 10:08 Dose: 40 mg Polyethylene Glycol (Miralax) 17 gm PO [facility] Spironolactone (Aldactone) 25 mg PO DAILY [facility] Last Admin: 01/13/17 09:39 Dose: Not Given - Labs Labs: 01/12/17 09:39 01/11/17 14:32 PT 19.3 SECONDS (9.7-12.2) H 01/02/17 06:48 INR 1.7 01/02/17 06:48 APTT 32 SECONDS (21-34) 12/30/16 07:04 - Head Exam Head Exam: ATRAUMATIC, NORMOCEPHALIC - ENT Exam ENT Exam: Mucous Membranes Moist - Neck Exam Neck Exam: Normal Inspection - Respiratory Exam Respiratory Exam: Decreased Breath Sounds - Cardiovascular Exam Cardiovascular Exam: REGULAR RHYTHM - GI/Abdominal Exam GI & Abdominal Exam: Soft, Normal Bowel Sounds - Extremities Exam Extremities Exam: Normal Inspection - Neurological Exam Neurological Exam: Altered Assessment and Plan (1) Pleural effusion Assessment & Plan: Status post thoracentesis Follow-up chest x-ray Consider pigtail catheter if there is recurrence of effusion Status: Acute (2) Sepsis Status: Acute (3) Parkinson disease Status: Chronic (4) Congestive cardiomyopathy Status: Chronic (5) History of B-cell lymphoma Status: Chronic
[2017-01-13] MEDS: POLYETHYLENE GLYCOL 3350 17 GM/Dose PACKET PO SCH (21:57)
[2017-01-14 07:14] LABS: BASO % 0.2 % (0.0-2.0); EOS % 0.5 % (0.0-4.0); HEMATOCRIT 37.1 % (34.0-47.0); LYMPH # 0.7 K/uL (1.0-4.3); LYMPH % 22.9 % (20.0-40.0); MEAN CORPUSCULAR HEMOGLOBIN 32.7 pg (27.0-31.0); MEAN CORPUSCULAR HGB CONC 32.5 g/dL (33.0-37.0); MONO # 0.2 K/uL (0.0-0.8); MONO % 6.2 % (0.0-10.0); NRBC % 0.6 % (0.0-2.0); RED CELL DISTRIBUTION WIDTH 27.2 % (11.5-14.5); WHITE BLOOD COUNT 3.2 K/uL (4.8-10.8)
[2017-01-14 07:33] LABS: MEAN CELL VOLUME 100.8 fL (81.0-99.0)
--- NOTE | 2017-01-14 09:13 | CP.PCM.PN ---
Subjective - Date & Time of Evaluation Date of Evaluation: 01/14/17 Time of Evaluation: 09:10 - Subjective Subjective: No leakage from GT, Ascites noted on Sonogram LFT's continue to improve since likely offending medications were d/c'd. Objective - Vital Signs/Intake and Output Vital Signs (last 24 hours): Temp Pulse Resp BP Pulse Ox 97.5 F L 111 H 18 96/64 L 100 01/14/17 07:51 01/14/17 07:51 01/14/17 07:51 01/14/17 07:51 01/14/17 07:51 Intake and Output: 01/14/17 01/14/17 06:59 18:59 Intake Total 600 330 Balance 600 330 - Medications Medications: Current Medications Emollient Ointment (Vaseline Oint) 5 gm TOP TID [facility] Last Admin: 01/13/17 18:28 Dose: 5 gm Linezolid (Zyvox 600mg/300ml D5w) 600 mg in 300 mls @ 200 mls/hr IVPB Q12H [facility] Last Admin: 01/13/17 22:37 Dose: 200 mls/hr Aztreonam 1 gm/ Dextrose 50 mls @ 100 mls/hr IVPB Q12H [facility] Last Admin: 01/14/17 06:12 Dose: 100 mls/hr Metoprolol Tartrate (Lopressor) 12.5 mg PO BID [facility] Last Admin: 01/13/17 17:00 Dose: Not Given Pantoprazole Sodium (Protonix Ec Tab) 40 mg PO DAILY [facility] Last Admin: 01/13/17 10:08 Dose: 40 mg Polyethylene Glycol (Miralax) 17 gm PO HS [facility] Last Admin: 01/13/17 21:57 Dose: 17 gm Spironolactone (Aldactone) 25 mg PO DAILY [facility] Last Admin: 01/13/17 09:39 Dose: Not Given - Labs Labs: 01/14/17 06:43 01/11/17 14:32 PT 19.3 SECONDS (9.7-12.2) H 01/02/17 06:48 INR 1.7 01/02/17 06:48 APTT 32 SECONDS (21-34) 12/30/16 07:04 - Constitutional Appears: Chronically Ill - Eye Exam Eye Exam: EOMI, PERRL - Respiratory Exam Respiratory Exam: Decreased Breath Sounds - Cardiovascular Exam Cardiovascular Exam: REGULAR RHYTHM - GI/Abdominal Exam GI & Abdominal Exam: Soft, Normal Bowel Sounds. absent: Tenderness Additional comments: GT intact. - Extremities Exam Extremities Exam: Normal Inspection Assessment and Plan (1) Malnutrition Status: Chronic (2) Dysphagia Status: Chronic (3) Parkinson disease Status: Chronic (4) Coagulopathy Status: Resolved (5) PEG tube malfunction Assessment & Plan: Advance tube feedings as tolerated. Leakage appears to have stopped. DNR/DNI noted. Status: Resolved (6) Abnormal liver enzymes Assessment & Plan: Improving off medications that likely caused elevation. Status: Acute (7) Drug-induced hepatitis Assessment & Plan: Drug induced hepatitis appears to be improving based upon serial LFT's since meds were discontinued. No need for daily monitoring at present. Would continue to discontinue the same meds. Status: Acute
[2017-01-14] MEDS: Pantoprazole 40 mg EC Tab PO SCH (10:42)
[2017-01-14] MEDS: Petrolatum Oint Foilpak (5 gm) TOP SCH ×3 (10:55→18:10)
--- NOTE | 2017-01-14 11:54 | CP.PCM.PN ---
Subjective - Date & Time of Evaluation Date of Evaluation: 01/14/17 Time of Evaluation: 11:50 - Subjective Subjective: Patient is very lethargic today. Confused, afebrile. Tolerating the tube feeding and IV Zyvox with Azactam. patient now a DNR and DNI. Objective - Vital Signs/Intake and Output Vital Signs (last 24 hours): Temp Pulse Resp BP Pulse Ox 97.5 F L 109 H 18 96/64 L 100 01/14/17 07:51 01/14/17 08:00 01/14/17 07:51 01/14/17 07:51 01/14/17 07:51 Intake and Output: 01/14/17 01/14/17 06:59 18:59 Intake Total 600 330 Balance 600 330 - Medications Medications: Current Medications Emollient Ointment (Vaseline Oint) 5 gm TOP TID [facility] Last Admin: 01/14/17 10:55 Dose: 5 gm Linezolid (Zyvox 600mg/300ml D5w) 600 mg in 300 mls @ 200 mls/hr IVPB Q12H [facility] Last Admin: 01/13/17 22:37 Dose: 200 mls/hr Aztreonam 1 gm/ Sodium (Chloride) 50 mls @ 100 mls/hr IVPB Q12H [facility] Metoprolol Tartrate (Lopressor) 12.5 mg PO BID [facility] Last Admin: 01/14/17 10:57 Dose: Not Given Pantoprazole Sodium (Protonix Ec Tab) 40 mg PO DAILY [facility] Last Admin: 01/14/17 10:42 Dose: 40 mg Polyethylene Glycol (Miralax) 17 gm PO HS [facility] Last Admin: 01/13/17 21:57 Dose: 17 gm Spironolactone (Aldactone) 25 mg PO DAILY [facility] Last Admin: 01/14/17 10:57 Dose: Not Given - Labs Labs: 01/14/17 06:43 01/11/17 14:32 PT 19.3 SECONDS (9.7-12.2) H 01/02/17 06:48 INR 1.7 01/02/17 06:48 APTT 32 SECONDS (21-34) 12/30/16 07:04 - Constitutional Appears: No Acute Distress, Chronically Ill - ENT Exam ENT Exam: Mucous Membranes Dry - Respiratory Exam Respiratory Exam: Decreased Breath Sounds - Cardiovascular Exam Cardiovascular Exam: Tachycardia, REGULAR RHYTHM, +S1, +S2 - Rectal Exam Rectal Exam: Deferred - Neurological Exam Neurological Exam: Altered Additional comments: Lethargic and confused. - Skin Skin Exam: Dry, Intact, Warm Assessment and Plan (1) Altered mental status Status: Acute (2) Sepsis Status: Acute (3) UTI (urinary tract infection) Status: Acute (4) History of B-cell lymphoma Status: Chronic (5) Parkinson disease Status: Chronic (6) CHF (congestive heart failure) Status: Chronic (7) Congestive cardiomyopathy Status: Chronic (8) Pleural effusion Status: Acute (9) VRE infection (vancomycin resistant Enterococcus) Status: Acute (10) Infection due to ESBL-producing Escherichia coli Status: Acute (11) Liver enzyme elevation Status: Acute - Assessment and Plan (Free Text) Plan: Prognosis---Poor. Plan: Continue tube feeding. Continue IV Zyvox and Azactam.
--- NOTE | 2017-01-14 12:10 | CP.PCM.PN ---
Subjective - Date & Time of Evaluation Date of Evaluation: 01/14/17 Time of Evaluation: 12:10 - Subjective Subjective: afebrile, awake, weak. MILDLY DYSPNEIC on 2L. O2 VIA NASAL CANNULA CONFUSED AT TIMES ON FEEDINGS AND TOLERATING IT. NO FURTHER LEAK NOTED. REPEAT URINE CULTURE 01/12/17 -VE GROWTH. LABS REVIEWED. WBC 3.2 H/H STABLE. PLT 95K. Objective - Vital Signs/Intake and Output Vital Signs (last 24 hours): Temp Pulse Resp BP Pulse Ox 97.5 F L 109 H 18 96/64 L 100 01/14/17 07:51 01/14/17 08:00 01/14/17 07:51 01/14/17 07:51 01/14/17 07:51 Intake and Output: 01/14/17 01/14/17 06:59 18:59 Intake Total 600 330 Balance 600 330 - Medications Medications: Current Medications Emollient Ointment (Vaseline Oint) 5 gm TOP TID [facility] Last Admin: 01/14/17 10:55 Dose: 5 gm Linezolid (Zyvox 600mg/300ml D5w) 600 mg in 300 mls @ 200 mls/hr IVPB Q12H [facility] Last Admin: 01/13/17 22:37 Dose: 200 mls/hr Aztreonam 1 gm/ Sodium (Chloride) 50 mls @ 100 mls/hr IVPB Q12H [facility] Metoprolol Tartrate (Lopressor) 12.5 mg PO BID [facility] Last Admin: 01/14/17 10:57 Dose: Not Given Pantoprazole Sodium (Protonix Ec Tab) 40 mg PO DAILY [facility] Last Admin: 01/14/17 10:42 Dose: 40 mg Polyethylene Glycol (Miralax) 17 gm PO HS [facility] Last Admin: 01/13/17 21:57 Dose: 17 gm Spironolactone (Aldactone) 25 mg PO DAILY [facility] Last Admin: 01/14/17 10:57 Dose: Not Given - Labs Labs: 01/14/17 06:43 01/11/17 14:32 PT 19.3 SECONDS (9.7-12.2) H 01/02/17 06:48 INR 1.7 01/02/17 06:48 APTT 32 SECONDS (21-34) 12/30/16 07:04 - Constitutional Appears: No Acute Distress, Confused, Cachectic, Chronically Ill - Head Exam Head Exam: NORMAL INSPECTION - Eye Exam Eye Exam: EOMI, PERRL, Scleral icterus - ENT Exam ENT Exam: Normal Oropharynx - Neck Exam Neck Exam: Normal Inspection - Respiratory Exam Respiratory Exam: Decreased Breath Sounds (BASES), Rales - Cardiovascular Exam Cardiovascular Exam: Tachycardia, REGULAR RHYTHM, +S1, +S2 - GI/Abdominal Exam GI & Abdominal Exam: Soft, Normal Bowel Sounds. absent: Tenderness - Extremities Exam Extremities Exam: absent: Calf Tenderness, Pedal Edema - Neurological Exam Neurological Exam: Altered, Awake - Psychiatric Exam Psychiatric exam: Flat Affect - Skin Skin Exam: Normal Color, Warm Assessment and Plan (1) Altered mental status Status: Acute (2) Sepsis Status: Acute (3) UTI (urinary tract infection) Status: Acute (4) CHF (congestive heart failure) Status: Chronic (5) History of B-cell lymphoma Status: Chronic (6) Parkinson disease Status: Chronic - Assessment and Plan (Free Text) Assessment: SEPSIS -UROSEPSIS RECURRENT +VE VRE/pROTEUS MIRABILIS. S/P THORACENTESIS 01/09/17-chf. jAUNDICE/TRANSAMINITIS -DRUG INDUCED FAILURE TO THRIVE/ANOREXIA S/P PEG 01/01/17 LEUKOPENIA ? IMMUNE VS DRUGS ? ABX. S/P RESPIRATORY FAILURE / PNEUMONIA CHF WITH RIGHT-SIDED LARGE EFFUSION S/P GRAM-NEGATIVE SEPSIS +VE ESBL +VE E. COLI . HISTORY OF B CELL- LYMPHOMA ( IN REMISSION ) PARKINSONISM. Plan : CONTINUE iv ZYVOX 600 MG EVERY 12 HOURLY. 01/10/17 X 1 DAY MORE DECREASE iv AZACTAM 1 G EVERY 12 HOURLY.01/10/17. PATIENT TOLERATING HER FEEDINGS. MONITOR CBC PATIENT ON iv ZYVOX. PT NOW DNR/DNI PER FAMILY. PEG CARE PER GI.
[2017-01-14] MEDS: Linezolid 600 mg in D5W 300 ml 600 MG/300 ML BAG IVPB SCH ×2 (12:11→22:56)
--- NOTE | 2017-01-14 13:17 | RAD ---
PROCEDURE: CHEST RADIOGRAPH, 1 VIEW HISTORY: pleural effusion COMPARISON: 01/11/2017 FINDINGS: LUNGS: There is a hazy infiltrate in the right lower lobe which may represent layering of a pleural effusion. The left lung is clear PLEURA: No pneumothorax or pleural fluid seen. CARDIOVASCULAR: Normal. OSSEOUS STRUCTURES: No significant abnormalities. VISUALIZED UPPER ABDOMEN: Normal. OTHER FINDINGS: None. IMPRESSION: Hazy infiltrate right lower lobe which could represent layering of a pleural effusion. This has increased since the prior study
[2017-01-14] MEDS: POLYETHYLENE GLYCOL 3350 17 GM/Dose PACKET PO SCH (22:57)
[2017-01-15 08:21] LABS: ALB/GLOB RATIO 1.3 (1.0-2.1); ALKALINE PHOSPHATASE 195 U/L (38-126); ALT/SGPT 57 U/L (9-52); AST/SGOT 34 U/L (14-36); BILIRUBIN,TOTAL 3.7 mg/dL (0.2-1.3); BLOOD UREA NITROGEN 27 mg/dL (7-17); CALCIUM 7.5 mg/dl (8.6-10.4); CARBON DIOXIDE 24 mmol/L (22-30); CHLORIDE 105 mmol/L (98-107); GFR AFRICAN-AMERICAN > 60; GLUCOSE,RANDOM 82 mg/dL (65-105); POTASSIUM 2.9 mmol/L (3.6-5.2); SODIUM 137 mmol/L (132-148); TOTAL PROTEIN 4.1 g/dL (6.3-8.3)
[2017-01-15] MEDS: Petrolatum Oint Foilpak (5 gm) TOP SCH ×3 (09:29→18:46)
[2017-01-15] MEDS: Pantoprazole 40 mg EC Tab PO SCH (09:29)
--- NOTE | 2017-01-15 10:23 | CP.PCM.PN ---
Subjective - Date & Time of Evaluation Date of Evaluation: 01/15/17 Time of Evaluation: 10:21 - Subjective Subjective: No new c/o Objective - Vital Signs/Intake and Output Vital Signs (last 24 hours): Temp Pulse Resp BP Pulse Ox 97.8 F 109 H 20 99/67 L 100 01/15/17 08:35 01/15/17 08:35 01/15/17 08:35 01/15/17 08:35 01/15/17 08:35 Intake and Output: 01/15/17 01/15/17 06:59 18:59 Intake Total 400 Balance 400 - Medications Medications: Current Medications Emollient Ointment (Vaseline Oint) 5 gm TOP TID [facility] Last Admin: 01/15/17 09:29 Dose: 5 gm Linezolid (Zyvox 600mg/300ml D5w) 600 mg in 300 mls @ 200 mls/hr IVPB Q12H [facility] Last Admin: 01/14/17 22:56 Dose: 200 mls/hr Aztreonam 1 gm/ Sodium (Chloride) 50 mls @ 100 mls/hr IVPB Q12H [facility] Last Admin: 01/15/17 05:50 Dose: 100 mls/hr Potassium Chloride (Potassium Chloride 20 Meq/100 Ml) 20 meq in 100 mls @ 50 mls/hr IVPB Q2 [facility] Stop: 01/15/17 15:59 Last Admin: 01/15/17 09:29 Dose: 50 mls/hr Metoprolol Tartrate (Lopressor) 12.5 mg PO BID [facility] Last Admin: 01/14/17 17:52 Dose: Not Given Pantoprazole Sodium (Protonix Ec Tab) 40 mg PO DAILY [facility] Last Admin: 01/15/17 09:29 Dose: 40 mg Polyethylene Glycol (Miralax) 17 gm PO HS [facility] Last Admin: 01/14/17 22:57 Dose: 17 gm Spironolactone (Aldactone) 25 mg PO DAILY [facility] Last Admin: 01/14/17 10:57 Dose: Not Given - Labs Labs: 01/14/17 06:43 01/15/17 07:21 PT 19.3 SECONDS (9.7-12.2) H 01/02/17 06:48 INR 1.7 01/02/17 06:48 APTT 32 SECONDS (21-34) 12/30/16 07:04 - Constitutional Appears: Chronically Ill - Head Exam Head Exam: ATRAUMATIC, NORMOCEPHALIC - Respiratory Exam Respiratory Exam: Decreased Breath Sounds - Cardiovascular Exam Cardiovascular Exam: REGULAR RHYTHM - GI/Abdominal Exam GI & Abdominal Exam: Soft, Normal Bowel Sounds. absent: Tenderness Additional comments: GT intact and site clean - Extremities Exam Extremities Exam: Normal Inspection Assessment and Plan (1) Malnutrition Status: Chronic (2) Dysphagia Status: Chronic (3) Parkinson disease Status: Chronic (4) Coagulopathy Status: Resolved (5) PEG tube malfunction Status: Resolved (6) Abnormal liver enzymes Assessment & Plan: Continue to monitor. Likely offending meds have been D/C'd DNR/DNI Status: Acute (7) Drug-induced hepatitis Assessment & Plan: as above Status: Acute
--- NOTE | 2017-01-15 10:55 | CP.PCM.PN ---
Subjective - Date & Time of Evaluation Date of Evaluation: 01/15/17 Time of Evaluation: 11:50 - Subjective Subjective: Patient is very lethargic today. Repeat chest X-ray yesterday increase in the left lower lobe infiltrate. Patient not in acute respiratory distress. Liver enzymes are down. Objective - Vital Signs/Intake and Output Vital Signs (last 24 hours): Temp Pulse Resp BP Pulse Ox 97.8 F 109 H 20 99/67 L 100 01/15/17 08:35 01/15/17 08:35 01/15/17 08:35 01/15/17 08:35 01/15/17 08:35 Intake and Output: 01/15/17 01/15/17 06:59 18:59 Intake Total 400 Balance 400 - Medications Medications: Current Medications Emollient Ointment (Vaseline Oint) 5 gm TOP TID [facility] Last Admin: 01/15/17 09:29 Dose: 5 gm Linezolid (Zyvox 600mg/300ml D5w) 600 mg in 300 mls @ 200 mls/hr IVPB Q12H [facility] Last Admin: 01/14/17 22:56 Dose: 200 mls/hr Aztreonam 1 gm/ Sodium (Chloride) 50 mls @ 100 mls/hr IVPB Q12H [facility] Last Admin: 01/15/17 05:50 Dose: 100 mls/hr Potassium Chloride (Potassium Chloride 20 Meq/100 Ml) 20 meq in 100 mls @ 50 mls/hr IVPB Q2 [facility] Stop: 01/15/17 15:59 Last Admin: 01/15/17 09:29 Dose: 50 mls/hr Metoprolol Tartrate (Lopressor) 12.5 mg PO BID [facility] Last Admin: 01/15/17 10:31 Dose: Not Given Pantoprazole Sodium (Protonix Ec Tab) 40 mg PO DAILY [facility] Last Admin: 01/15/17 09:29 Dose: 40 mg Polyethylene Glycol (Miralax) 17 gm PO HS [facility] Last Admin: 01/14/17 22:57 Dose: 17 gm Spironolactone (Aldactone) 25 mg PO DAILY [facility] Last Admin: 01/15/17 10:31 Dose: Not Given - Labs Labs: 01/14/17 06:43 01/15/17 07:21 PT 19.3 SECONDS (9.7-12.2) H 01/02/17 06:48 INR 1.7 01/02/17 06:48 APTT 32 SECONDS (21-34) 12/30/16 07:04 - Constitutional Appears: Chronically Ill - ENT Exam ENT Exam: Mucous Membranes Dry - Neck Exam Neck Exam: Normal Inspection - Respiratory Exam Respiratory Exam: Decreased Breath Sounds, NORMAL BREATHING PATTERN - Cardiovascular Exam Cardiovascular Exam: Tachycardia, +S1, +S2 - GI/Abdominal Exam GI & Abdominal Exam: Normal Bowel Sounds - Rectal Exam Rectal Exam: Deferred - Neurological Exam Neurological Exam: Altered Additional comments: lethargic - Skin Skin Exam: Dry, Intact, Warm Assessment and Plan (1) Altered mental status Status: Acute (2) Sepsis Status: Acute (3) UTI (urinary tract infection) Status: Acute (4) History of B-cell lymphoma Status: Chronic (5) Parkinson disease Status: Chronic (6) CHF (congestive heart failure) Status: Chronic (7) Congestive cardiomyopathy Status: Chronic (8) Pleural effusion Status: Acute (9) VRE infection (vancomycin resistant Enterococcus) Status: Acute (10) Infection due to ESBL-producing Escherichia coli Status: Acute (11) Liver enzyme elevation Status: Acute - Assessment and Plan (Free Text) Plan: Prognosis : Poor Plan: Continue IV Zyvox and Azactam Continue PEG feeding.
[2017-01-15] MEDS: Linezolid 600 mg in D5W 300 ml 600 MG/300 ML BAG IVPB SCH ×2 (11:01→22:42)
--- NOTE | 2017-01-15 13:59 | CP.PCM.PN ---
Subjective - Date & Time of Evaluation Date of Evaluation: 01/15/17 Time of Evaluation: 13:59 - Subjective Subjective: awake, Lethargic, confused. As per niece appetite very poor. Labs reviewed. LFTS IMPROVING. K 2.9LOW. CXR 01/14/17. HAZY INFILTRATE RIGHT LOWER LUNG ?LAYERING PLEURAL EFFUSION. LEFT LUNG CLEAR. Objective - Vital Signs/Intake and Output Vital Signs (last 24 hours): Temp Pulse Resp BP Pulse Ox 97.8 F 109 H 20 99/67 L 100 01/15/17 08:35 01/15/17 08:35 01/15/17 08:35 01/15/17 08:35 01/15/17 08:35 Intake and Output: 01/15/17 01/15/17 06:59 18:59 Intake Total 400 Balance 400 - Medications Medications: Current Medications Emollient Ointment (Vaseline Oint) 5 gm TOP TID [facility] Last Admin: 01/15/17 09:29 Dose: 5 gm Linezolid (Zyvox 600mg/300ml D5w) 600 mg in 300 mls @ 200 mls/hr IVPB Q12H [facility] Last Admin: 01/15/17 11:01 Dose: 200 mls/hr Aztreonam 1 gm/ Sodium (Chloride) 50 mls @ 100 mls/hr IVPB Q12H [facility] Last Admin: 01/15/17 05:50 Dose: 100 mls/hr Potassium Chloride (Potassium Chloride 20 Meq/100 Ml) 20 meq in 100 mls @ 50 mls/hr IVPB Q2 [facility] Stop: 01/15/17 15:59 Last Admin: 01/15/17 12:31 Dose: 50 mls/hr Metoprolol Tartrate (Lopressor) 12.5 mg PO BID [facility] Last Admin: 01/15/17 10:31 Dose: Not Given Pantoprazole Sodium (Protonix Ec Tab) 40 mg PO DAILY [facility] Last Admin: 01/15/17 09:29 Dose: 40 mg Polyethylene Glycol (Miralax) 17 gm PO HS [facility] Last Admin: 01/14/17 22:57 Dose: 17 gm Spironolactone (Aldactone) 25 mg PO DAILY [facility] Last Admin: 01/15/17 10:31 Dose: Not Given - Labs Labs: 01/14/17 06:43 01/15/17 07:21 PT 19.3 SECONDS (9.7-12.2) H 01/02/17 06:48 INR 1.7 01/02/17 06:48 APTT 32 SECONDS (21-34) 12/30/16 07:04 - Constitutional Appears: Confused, Cachectic, Chronically Ill - Eye Exam Eye Exam: EOMI, PERRL, Scleral icterus - ENT Exam ENT Exam: Normal Oropharynx - Neck Exam Neck Exam: Normal Inspection. absent: Meningismus - Respiratory Exam Respiratory Exam: Decreased Breath Sounds (RIGHT BASE.), NORMAL BREATHING PATTERN - Cardiovascular Exam Cardiovascular Exam: Tachycardia, +S1, +S2 - GI/Abdominal Exam GI & Abdominal Exam: Soft, Normal Bowel Sounds (PEG IN PLACE. nO LEAKING.) - Extremities Exam Extremities Exam: absent: Calf Tenderness, Pedal Edema - Neurological Exam Neurological Exam: Altered, Awake - Psychiatric Exam Psychiatric exam: Flat Affect - Skin Skin Exam: Normal Color, Warm Assessment and Plan (1) Altered mental status Status: Acute (2) Sepsis Status: Acute (3) UTI (urinary tract infection) Status: Acute (4) CHF (congestive heart failure) Status: Chronic (5) History of B-cell lymphoma Status: Chronic (6) Parkinson disease Status: Chronic - Assessment and Plan (Free Text) Assessment: SEPSIS -UROSEPSIS RECURRENT +VE VRE/pROTEUS MIRABILIS. S/P THORACENTESIS 01/09/17-chf. jAUNDICE/TRANSAMINITIS -DRUG INDUCED FAILURE TO THRIVE/ANOREXIA S/P PEG 01/01/17 LEUKOPENIA ? IMMUNE VS DRUGS ? ABX. S/P RESPIRATORY FAILURE / PNEUMONIA CHF WITH RIGHT-SIDED LARGE EFFUSION S/P GRAM-NEGATIVE SEPSIS +VE ESBL +VE E. COLI . HISTORY OF B CELL- LYMPHOMA ( IN REMISSION ) PARKINSONISM. Plan K-SUPPLEMENT PER ATTENDING ON iv ZYVOX 600 MG EVERY 12 HOURLY. 01/10/17- ON iv AZACTAM 1 G EVERY 12 HOURLY.01/10/17. PATIENT TOLERATING HER FEEDINGS. MONITOR CBC PATIENT ON iv ZYVOX. PT NOW DNR/DNI PER FAMILY. PEG CARE PER GI. PROGNOSIS GRAVE AND GUARDED. NIECE REPORTS HER DAUGHTER IS ON THE WAY.
[2017-01-15] MEDS: POLYETHYLENE GLYCOL 3350 17 GM/Dose PACKET PO SCH (21:39)
[2017-01-16 08:36] LABS: MEAN CELL VOLUME 100.4 fL (81.0-99.0); MEAN CORPUSCULAR HEMOGLOBIN 32.5 pg (27.0-31.0); MEAN CORPUSCULAR HGB CONC 32.4 g/dL (33.0-37.0); MEAN PLATELET VOLUME 11.8 fL (7.2-11.7); RED CELL DISTRIBUTION WIDTH 28.1 % (11.5-14.5); WHITE BLOOD COUNT 3.6 K/uL (4.8-10.8)
[2017-01-16 09:17] LABS: BLOOD UREA NITROGEN 34 mg/dL (7-17); CALCIUM 7.9 mg/dl (8.6-10.4); CARBON DIOXIDE 22 mmol/L (22-30); CHLORIDE 103 mmol/L (98-107); GFR AFRICAN-AMERICAN > 60; GLUCOSE,RANDOM 122 mg/dL (65-105); POTASSIUM 3.6 mmol/L (3.6-5.2); SODIUM 136 mmol/L (132-148)
--- NOTE | 2017-01-16 09:41 | CP.PCM.PN ---
Subjective - Date & Time of Evaluation Date of Evaluation: 01/16/17 Time of Evaluation: 09:39 - Subjective Subjective: No new c/o, no respiratory distress, lethargic Objective - Vital Signs/Intake and Output Vital Signs (last 24 hours): Temp Pulse Resp BP Pulse Ox 97.3 F L 112 H 18 97/65 L 100 01/16/17 07:57 01/16/17 07:57 01/16/17 07:57 01/16/17 07:57 01/16/17 07:57 Intake and Output: 01/16/17 01/16/17 06:59 18:59 Intake Total 780 Balance 780 - Medications Medications: Current Medications Emollient Ointment (Vaseline Oint) 5 gm TOP TID [facility] Last Admin: 01/15/17 18:46 Dose: 5 gm Linezolid (Zyvox 600mg/300ml D5w) 600 mg in 300 mls @ 200 mls/hr IVPB Q12H [facility] Last Admin: 01/15/17 22:42 Dose: 200 mls/hr Aztreonam 1 gm/ Sodium (Chloride) 50 mls @ 100 mls/hr IVPB Q12H [facility] Last Admin: 01/16/17 06:07 Dose: 100 mls/hr Metoprolol Tartrate (Lopressor) 12.5 mg PO BID [facility] Last Admin: 01/15/17 18:38 Dose: Not Given Pantoprazole Sodium (Protonix Ec Tab) 40 mg PO DAILY [facility] Last Admin: 01/15/17 09:29 Dose: 40 mg Polyethylene Glycol (Miralax) 17 gm PO HS [facility] Last Admin: 01/15/17 21:39 Dose: 17 gm Spironolactone (Aldactone) 25 mg PO DAILY [facility] Last Admin: 01/15/17 10:31 Dose: Not Given - Labs Labs: 01/16/17 06:56 01/16/17 06:56 PT 19.3 SECONDS (9.7-12.2) H 01/02/17 06:48 INR 1.7 01/02/17 06:48 APTT 32 SECONDS (21-34) 12/30/16 07:04 - Constitutional Appears: Cachectic, Chronically Ill - Respiratory Exam Respiratory Exam: Decreased Breath Sounds - Cardiovascular Exam Cardiovascular Exam: REGULAR RHYTHM - GI/Abdominal Exam GI & Abdominal Exam: Soft, Normal Bowel Sounds. absent: Guarding, Tenderness, Mass, Rebound Additional comments: GT intact and infusing well. - Extremities Exam Extremities Exam: Normal Inspection Assessment and Plan (1) Malnutrition Assessment & Plan: Cpontinue GT feedings to meet needs. Don't over distend stomach to decrease aspiration and leakage risk. Status: Chronic (2) Dysphagia Status: Chronic (3) Parkinson disease Status: Chronic (4) Coagulopathy Status: Resolved (5) PEG tube malfunction Status: Resolved (6) Abnormal liver enzymes Status: Acute (7) Drug-induced hepatitis Assessment & Plan: LFTs had been improving. Monitor as needed. Continue to withhold offending meds DNR/DNI. Will follow as needed. Status: Acute
[2017-01-16] MEDS: Petrolatum Oint Foilpak (5 gm) TOP SCH ×3 (10:00→18:57)
--- NOTE | 2017-01-16 11:22 | CP.PCM.PN ---
Subjective - Date & Time of Evaluation Date of Evaluation: 01/16/17 Time of Evaluation: 11:15 - Subjective Subjective: Patient is awake today. Not as lethargic as yesterday. Still confused and very weak. On DNR and DNI. Platelet ct. was better yesterday. Tolerating the tube feeding . Afebrile. BP in the low 100 .Unable to give Lasix, Spironolactone or Metoprolol because of the hypotension. As discussed with Dr. Lyles the possibility that the pleural effusion will recur a pigtail has to be inserted. Objective - Vital Signs/Intake and Output Vital Signs (last 24 hours): Temp Pulse Resp BP Pulse Ox 97.3 F L 112 H 18 97/65 L 100 01/16/17 07:57 01/16/17 07:57 01/16/17 07:57 01/16/17 07:57 01/16/17 07:57 Intake and Output: 01/16/17 01/16/17 06:59 18:59 Intake Total 780 Balance 780 - Medications Medications: Current Medications Emollient Ointment (Vaseline Oint) 5 gm TOP TID [facility] Last Admin: 01/15/17 18:46 Dose: 5 gm Linezolid (Zyvox 600mg/300ml D5w) 600 mg in 300 mls @ 200 mls/hr IVPB Q12H [facility] Last Admin: 01/15/17 22:42 Dose: 200 mls/hr Aztreonam 1 gm/ Sodium (Chloride) 50 mls @ 100 mls/hr IVPB Q12H [facility] Last Admin: 01/16/17 06:07 Dose: 100 mls/hr Metoprolol Tartrate (Lopressor) 12.5 mg PO BID [facility] Last Admin: 01/15/17 18:38 Dose: Not Given Pantoprazole Sodium (Protonix Susp) 40 mg GT DAILY [facility] Polyethylene Glycol (Miralax) 17 gm PO HS [facility] Last Admin: 01/15/17 21:39 Dose: 17 gm Spironolactone (Aldactone) 25 mg PO DAILY [facility] Last Admin: 01/15/17 10:31 Dose: Not Given - Labs Labs: 01/16/17 06:56 01/16/17 06:56 PT 19.3 SECONDS (9.7-12.2) H 01/02/17 06:48 INR 1.7 01/02/17 06:48 APTT 32 SECONDS (21-34) 12/30/16 07:04 - Constitutional Appears: Confused, Chronically Ill - ENT Exam ENT Exam: Mucous Membranes Dry - Respiratory Exam Respiratory Exam: Decreased Breath Sounds, NORMAL BREATHING PATTERN - Cardiovascular Exam Cardiovascular Exam: Tachycardia, REGULAR RHYTHM, +S1, +S2 - GI/Abdominal Exam GI & Abdominal Exam: Soft - Rectal Exam Rectal Exam: Deferred - Neurological Exam Neurological Exam: Altered, Awake - Skin Skin Exam: Dry, Intact, Warm Assessment and Plan (1) Altered mental status Status: Acute (2) Sepsis Status: Acute (3) UTI (urinary tract infection) Status: Acute (4) History of B-cell lymphoma Status: Chronic (5) Parkinson disease Status: Chronic (6) CHF (congestive heart failure) Status: Chronic (7) Congestive cardiomyopathy Status: Chronic (8) Pleural effusion Status: Acute (9) VRE infection (vancomycin resistant Enterococcus) Status: Acute (10) Infection due to ESBL-producing Escherichia coli Status: Acute (11) Liver enzyme elevation Status: Acute - Assessment and Plan (Free Text) Assessment: Assessment: Prognosis poor. Status Acute. Diagnosis: Urosepsis + VRE and EBSL in the urine Congestive cardiomyopathy Non ischemic Pleural Effusion recurrent. Ascites secondary to CHF. Pneumonia. Diffuse large cell lymphoma in remission. Parkinson' disease. Drug induced hepatitis. Plan: Plan: Continue tube feeding. Supportive care. IV antibiotics as per Dr. Lynn.
[2017-01-16] MEDS: Pantoprazole 40 mg Susp UD GT SCH (11:31)
[2017-01-16] MEDS: Linezolid 600 mg in D5W 300 ml 600 MG/300 ML BAG IVPB SCH ×2 (12:00→22:38)
[2017-01-16 13:11] LABS: BASO % 0.4 % (0.0-2.0); EOS % 0.5 % (0.0-4.0); HEMATOCRIT 36.3 % (34.0-47.0); LYMPH # 0.8 K/uL (1.0-4.3); LYMPH % 20.3 % (20.0-40.0); MEAN CELL VOLUME 100.3 fL (81.0-99.0); MEAN CORPUSCULAR HEMOGLOBIN 32.8 pg (27.0-31.0); MEAN CORPUSCULAR HGB CONC 32.6 g/dL (33.0-37.0); MEAN PLATELET VOLUME 11.1 fL (7.2-11.7); MONO # 0.2 K/uL (0.0-0.8); MONO % 5.1 % (0.0-10.0); NRBC % 1.2 % (0.0-2.0); RED CELL DISTRIBUTION WIDTH 27.6 % (11.5-14.5); WHITE BLOOD COUNT 3.8 K/uL (4.8-10.8)
--- NOTE | 2017-01-16 13:28 | CP.PCM.PN ---
Subjective - Date & Time of Evaluation Date of Evaluation: 01/16/17 Time of Evaluation: 13:27 - Subjective Subjective: awake, BP 98/58 Lethargic, MORE AWAKE TODAY. DYSPNEIC . TOLERATING FEEDINGS PT NOW DNR/DNI. LABS REVIEWED Objective - Vital Signs/Intake and Output Vital Signs (last 24 hours): Temp Pulse Resp BP Pulse Ox 98.6 F 95 H 18 98/58 L 100 01/16/17 10:50 01/16/17 10:50 01/16/17 07:57 01/16/17 10:50 01/16/17 07:57 Intake and Output: 01/16/17 01/16/17 06:59 18:59 Intake Total 780 Balance 780 - Medications Medications: Current Medications Emollient Ointment (Vaseline Oint) 5 gm TOP TID [facility] Last Admin: 01/15/17 18:46 Dose: 5 gm Linezolid (Zyvox 600mg/300ml D5w) 600 mg in 300 mls @ 200 mls/hr IVPB Q12H [facility] Last Admin: 01/16/17 12:00 Dose: 200 mls/hr Aztreonam 1 gm/ Sodium (Chloride) 50 mls @ 100 mls/hr IVPB Q12H [facility] Last Admin: 01/16/17 06:07 Dose: 100 mls/hr Metoprolol Tartrate (Lopressor) 12.5 mg PO BID [facility] Last Admin: 01/16/17 10:59 Dose: Not Given Pantoprazole Sodium (Protonix Susp) 40 mg GT DAILY [facility] Last Admin: 01/16/17 11:31 Dose: 40 mg Polyethylene Glycol (Miralax) 17 gm PO HS [facility] Last Admin: 01/15/17 21:39 Dose: 17 gm Spironolactone (Aldactone) 25 mg PO DAILY [facility] Last Admin: 01/16/17 10:59 Dose: Not Given - Labs Labs: 01/16/17 12:54 01/16/17 06:56 PT 19.3 SECONDS (9.7-12.2) H 01/02/17 06:48 INR 1.7 01/02/17 06:48 APTT 32 SECONDS (21-34) 12/30/16 07:04 - Constitutional Appears: Cachectic, Chronically Ill - Head Exam Head Exam: NORMAL INSPECTION - Eye Exam Eye Exam: EOMI, PERRL, Scleral icterus - ENT Exam ENT Exam: Normal Oropharynx - Neck Exam Neck Exam: Normal Inspection - Respiratory Exam Respiratory Exam: Decreased Breath Sounds (RT SIDE.), Rales - Cardiovascular Exam Cardiovascular Exam: Tachycardia, REGULAR RHYTHM, +S1, +S2 - GI/Abdominal Exam GI & Abdominal Exam: Soft, Normal Bowel Sounds (PEG IN PLACE . ) - Extremities Exam Extremities Exam: absent: Calf Tenderness, Pedal Edema - Neurological Exam Neurological Exam: Awake, CN II-XII Intact - Psychiatric Exam Psychiatric exam: Flat Affect - Skin Skin Exam: Normal Color, Warm Assessment and Plan (1) Altered mental status Status: Acute (2) Sepsis Status: Acute (3) UTI (urinary tract infection) Status: Acute (4) CHF (congestive heart failure) Status: Chronic (5) History of B-cell lymphoma Status: Chronic (6) Parkinson disease Status: Chronic - Assessment and Plan (Free Text) Assessment: SEPSIS -UROSEPSIS RECURRENT +VE VRE/pROTEUS MIRABILIS. S/P THORACENTESIS 01/09/17-chf. jAUNDICE/TRANSAMINITIS -DRUG INDUCED FAILURE TO THRIVE/ANOREXIA S/P PEG 01/01/17 LEUKOPENIA ? IMMUNE VS DRUGS ? ABX. S/P RESPIRATORY FAILURE / PNEUMONIA CHF WITH RIGHT-SIDED LARGE EFFUSION S/P GRAM-NEGATIVE SEPSIS +VE ESBL +VE E. COLI . HISTORY OF B CELL- LYMPHOMA ( IN REMISSION ) PARKINSONISM. Plan K-SUPPLEMENT PER ATTENDING ON iv ZYVOX 600 MG EVERY 12 HOURLY. 01/10/17- ON iv AZACTAM 1 G EVERY 12 HOURLY.01/10/17. PATIENT TOLERATING HER FEEDINGS. MONITOR CBC PATIENT ON iv ZYVOX. PT NOW DNR/DNI PER FAMILY. PROGNOSIS GRAVE.
[2017-01-16 13:31] LABS: ALKALINE PHOSPHATASE 212 U/L (38-126); ALT/SGPT 63 U/L (9-52); AST/SGOT 46 U/L (14-36); BILIRUBIN,TOTAL 2.5 mg/dL (0.2-1.3); BLOOD UREA NITROGEN 34 mg/dL (7-17); CALCIUM 8.1 mg/dl (8.6-10.4); CARBON DIOXIDE 25 mmol/L (22-30); CHLORIDE 105 mmol/L (98-107); GFR AFRICAN-AMERICAN > 60; GLUCOSE,RANDOM 125 mg/dL (65-105); POTASSIUM 3.8 mmol/L (3.6-5.2); SODIUM 139 mmol/L (132-148); TOTAL PROTEIN 5.2 g/dL (6.3-8.3)
[2017-01-16] MEDS: POLYETHYLENE GLYCOL 3350 17 GM/Dose PACKET PO SCH (22:38)
--- NOTE | 2017-01-17 06:51 | CP.PCM.PN ---
Subjective - Date & Time of Evaluation Date of Evaluation: 01/17/17 Time of Evaluation: 06:45 - Subjective Subjective: Patient is dyspneic this AM. Confused. Denied for inpatient hospice. On IV Zyvox and Azactam. Platelet count 92,000. Liver eynzymes are down. Objective - Vital Signs/Intake and Output Vital Signs (last 24 hours): Temp Pulse Resp BP Pulse Ox 98 F 126 H 20 96/62 L 100 01/16/17 23:15 01/16/17 23:20 01/16/17 23:15 01/16/17 23:15 01/16/17 23:15 Intake and Output: 01/16/17 01/17/17 18:59 06:59 Intake Total 820 420 Balance 820 420 - Medications Medications: Current Medications Emollient Ointment (Vaseline Oint) 5 gm TOP TID [facility] Last Admin: 01/16/17 18:57 Dose: 5 gm Linezolid (Zyvox 600mg/300ml D5w) 600 mg in 300 mls @ 200 mls/hr IVPB Q12H [facility] Last Admin: 01/16/17 22:38 Dose: 200 mls/hr Aztreonam 1 gm/ Sodium (Chloride) 50 mls @ 100 mls/hr IVPB Q12H [facility] Last Admin: 01/17/17 05:26 Dose: 100 mls/hr Metoprolol Tartrate (Lopressor) 12.5 mg PO BID [facility] Last Admin: 01/16/17 18:55 Dose: Not Given Pantoprazole Sodium (Protonix Susp) 40 mg GT DAILY [facility] Last Admin: 01/16/17 11:31 Dose: 40 mg Polyethylene Glycol (Miralax) 17 gm PO HS [facility] Last Admin: 01/16/17 22:38 Dose: 17 gm Spironolactone (Aldactone) 25 mg PO DAILY [facility] Last Admin: 01/16/17 10:59 Dose: Not Given - Labs Labs: 01/16/17 12:54 01/16/17 12:54 PT 19.3 SECONDS (9.7-12.2) H 01/02/17 06:48 INR 1.7 01/02/17 06:48 APTT 32 SECONDS (21-34) 12/30/16 07:04 - Constitutional Appears: Confused, Cachectic, Chronically Ill - Eye Exam Eye Exam: Normal appearance - ENT Exam ENT Exam: Mucous Membranes Dry - Neck Exam Neck Exam: Full ROM - Respiratory Exam Respiratory Exam: Decreased Breath Sounds - Cardiovascular Exam Cardiovascular Exam: Tachycardia, REGULAR RHYTHM, +S1, +S2 - GI/Abdominal Exam GI & Abdominal Exam: Soft - Rectal Exam Rectal Exam: Deferred - Neurological Exam Neurological Exam: Altered, Awake - Skin Skin Exam: Dry, Intact, Normal Color, Warm Assessment and Plan (1) Altered mental status Status: Acute (2) Sepsis Status: Acute (3) UTI (urinary tract infection) Status: Acute (4) History of B-cell lymphoma Status: Chronic (5) Parkinson disease Status: Chronic (6) CHF (congestive heart failure) Status: Chronic (7) Congestive cardiomyopathy Status: Chronic (8) Pleural effusion Status: Acute (9) VRE infection (vancomycin resistant Enterococcus) Status: Acute (10) Infection due to ESBL-producing Escherichia coli Status: Acute (11) Liver enzyme elevation Status: Acute - Assessment and Plan (Free Text) Assessment: Assessment: Prognosis-poor. Status Acute Diagnosis: Urosepsis VRE-EBSL urinary infection Large Cell Lymphoma in Remission. Parkinsonism Non Ischemic cardiomyopathy. Congestive heart failure. Pleural effusion. Drug induced hepatitis. On tube feeding. Plan: Plan: Continue tube feeding. Continue IV Zyvox and Azactam
--- NOTE | 2017-01-17 10:37 | RAD ---
PROCEDURE: CHEST RADIOGRAPH, 1 VIEW HISTORY: Dyspnea COMPARISON: Comparison is made to 01/14/2017 FINDINGS: LUNGS: Re- demonstration of hazy opacity at the right lower lung appears slightly larger compared to the previous exam. PLEURA: Right pleural effusion is also noted at these larger compared to the previous exam. CARDIOVASCULAR: The cardiac silhouette is enlarged. There is right-sided Infusaport. OSSEOUS STRUCTURES: No significant abnormalities. VISUALIZED UPPER ABDOMEN: Normal. OTHER FINDINGS: None. IMPRESSION: Interval worsening of hazy opacity/ infiltrate at the right lower lung and increase in the right pleural effusion since the previous study. The possibility of acute infectious process cannot be excluded. If indicated further assessment by CT may be obtained.
[2017-01-17] MEDS: Pantoprazole 40 mg Susp UD GT SCH (11:19)
[2017-01-17] MEDS: Petrolatum Oint Foilpak (5 gm) TOP SCH ×3 (11:19→18:12)
[2017-01-17] MEDS: Linezolid 600 mg in D5W 300 ml 600 MG/300 ML BAG IVPB SCH ×2 (11:19→22:49)
--- NOTE | 2017-01-17 11:47 | CP.PCM.PN ---
Subjective - Date & Time of Evaluation Date of Evaluation: 01/17/17 Time of Evaluation: 11:45 - Subjective Subjective: Somewhat SOB today. No new c/o Objective - Vital Signs/Intake and Output Vital Signs (last 24 hours): Temp Pulse Resp BP Pulse Ox 98.1 F 120 H 20 99/72 L 98 01/17/17 08:00 01/17/17 08:00 01/17/17 08:00 01/17/17 08:00 01/17/17 08:00 Intake and Output: 01/17/17 01/17/17 06:59 18:59 Intake Total 420 Balance 420 - Medications Medications: Current Medications Emollient Ointment (Vaseline Oint) 5 gm TOP TID [facility] Last Admin: 01/17/17 11:19 Dose: 5 gm Linezolid (Zyvox 600mg/300ml D5w) 600 mg in 300 mls @ 200 mls/hr IVPB Q12H [facility] Last Admin: 01/17/17 11:19 Dose: 200 mls/hr Aztreonam 1 gm/ Sodium (Chloride) 50 mls @ 100 mls/hr IVPB Q12H [facility] Last Admin: 01/17/17 05:26 Dose: 100 mls/hr Metoprolol Tartrate (Lopressor) 12.5 mg PO BID [facility] Last Admin: 01/17/17 11:16 Dose: Not Given Pantoprazole Sodium (Protonix Susp) 40 mg GT DAILY [facility] Last Admin: 01/17/17 11:19 Dose: 40 mg Polyethylene Glycol (Miralax) 17 gm PO HS [facility] Last Admin: 01/16/17 22:38 Dose: 17 gm Spironolactone (Aldactone) 25 mg PO DAILY [facility] Last Admin: 01/17/17 11:16 Dose: Not Given - Labs Labs: 01/16/17 12:54 01/16/17 12:54 PT 19.3 SECONDS (9.7-12.2) H 01/02/17 06:48 INR 1.7 01/02/17 06:48 APTT 32 SECONDS (21-34) 12/30/16 07:04 - Constitutional Appears: Cachectic, Other (mildly dyspneic) - Respiratory Exam Respiratory Exam: Accessory Muscle Use, Decreased Breath Sounds - Cardiovascular Exam Cardiovascular Exam: REGULAR RHYTHM - GI/Abdominal Exam GI & Abdominal Exam: Soft, Normal Bowel Sounds. absent: Tenderness Additional comments: GT intact - Extremities Exam Extremities Exam: Normal Inspection Assessment and Plan (1) Malnutrition Status: Chronic (2) Dysphagia Status: Chronic (3) Parkinson disease Status: Chronic (4) Coagulopathy Status: Resolved (5) PEG tube malfunction Status: Resolved (6) Abnormal liver enzymes Status: Acute (7) Drug-induced hepatitis Assessment & Plan: LFT's improving and stable DNR/DNI. ?hospice? Status: Acute
--- NOTE | 2017-01-17 12:25 | CP.PCM.PN ---
Subjective - Date & Time of Evaluation Date of Evaluation: 01/17/17 Time of Evaluation: 12:24 - Subjective Subjective: AFEBRILE, MILDLY SOB ON O2 BY NASAL CANNULA. TOLERATING FEEDINGS. NO NEW LABS FOR TODAY. Objective - Vital Signs/Intake and Output Vital Signs (last 24 hours): Temp Pulse Resp BP Pulse Ox 98.1 F 120 H 20 99/72 L 98 01/17/17 08:00 01/17/17 08:00 01/17/17 08:00 01/17/17 08:00 01/17/17 08:00 Intake and Output: 01/17/17 01/17/17 06:59 18:59 Intake Total 420 Balance 420 - Medications Medications: Current Medications Emollient Ointment (Vaseline Oint) 5 gm TOP TID [facility] Last Admin: 01/17/17 11:19 Dose: 5 gm Linezolid (Zyvox 600mg/300ml D5w) 600 mg in 300 mls @ 200 mls/hr IVPB Q12H [facility] Last Admin: 01/17/17 11:19 Dose: 200 mls/hr Aztreonam 1 gm/ Sodium (Chloride) 50 mls @ 100 mls/hr IVPB Q12H [facility] Last Admin: 01/17/17 05:26 Dose: 100 mls/hr Metoprolol Tartrate (Lopressor) 12.5 mg PO BID [facility] Last Admin: 01/17/17 11:16 Dose: Not Given Pantoprazole Sodium (Protonix Susp) 40 mg GT DAILY [facility] Last Admin: 01/17/17 11:19 Dose: 40 mg Polyethylene Glycol (Miralax) 17 gm PO HS [facility] Last Admin: 01/16/17 22:38 Dose: 17 gm Spironolactone (Aldactone) 25 mg PO DAILY [facility] Last Admin: 01/17/17 11:16 Dose: Not Given - Labs Labs: 01/16/17 12:54 01/16/17 12:54 PT 19.3 SECONDS (9.7-12.2) H 01/02/17 06:48 INR 1.7 01/02/17 06:48 APTT 32 SECONDS (21-34) 12/30/16 07:04 - Constitutional Appears: No Acute Distress, Cachectic, Chronically Ill - Head Exam Head Exam: NORMAL INSPECTION - Eye Exam Eye Exam: EOMI, PERRL, Scleral icterus - ENT Exam ENT Exam: Normal Oropharynx - Neck Exam Neck Exam: Normal Inspection - Respiratory Exam Respiratory Exam: Decreased Breath Sounds (RT. BASE.) - Cardiovascular Exam Cardiovascular Exam: Tachycardia, REGULAR RHYTHM, +S1, +S2 - GI/Abdominal Exam GI & Abdominal Exam: Soft, Normal Bowel Sounds. absent: Tenderness - Extremities Exam Extremities Exam: absent: Calf Tenderness, Pedal Edema - Neurological Exam Neurological Exam: Awake, CN II-XII Intact - Psychiatric Exam Psychiatric exam: Flat Affect - Skin Skin Exam: Normal Color, Warm Assessment and Plan (1) Altered mental status Status: Acute (2) Sepsis Status: Acute (3) UTI (urinary tract infection) Status: Acute (4) CHF (congestive heart failure) Status: Chronic (5) History of B-cell lymphoma Status: Chronic (6) Parkinson disease Status: Chronic - Assessment and Plan (Free Text) Assessment: FAILURE TO THRIVE/ANOREXIA S/P PEG 01/01/17 LEUKOPENIA ? IMMUNE VS DRUGS ? ABX. S/P RESPIRATORY FAILURE / PNEUMONIA CHF WITH RIGHT-SIDED LARGE EFFUSION S/P GRAM-NEGATIVE SEPSIS +VE ESBL +VE E. COLI . HISTORY OF B CELL- LYMPHOMA ( IN REMISSION ) PARKINSONISM. Plan K-SUPPLEMENT PER ATTENDING ON iv ZYVOX 600 MG EVERY 12 HOURLY. 01/10/17- ON iv AZACTAM 1 G EVERY 12 HOURLY.01/10/17. PATIENT TOLERATING HER FEEDINGS. MONITOR CBC PATIENT ON iv ZYVOX. PT NOW DNR/DNI PER FAMILY. PROGNOSIS GAURDED.
[2017-01-17] MEDS: POLYETHYLENE GLYCOL 3350 17 GM/Dose PACKET PO SCH (22:24)
[2017-01-18 08:16] LABS: BASO % 0.2 % (0.0-2.0); EOS % 0.3 % (0.0-4.0); HEMATOCRIT 33.1 % (34.0-47.0); LYMPH # 0.8 K/uL (1.0-4.3); LYMPH % 20.2 % (20.0-40.0); MEAN CELL VOLUME 100.3 fL (81.0-99.0); MEAN CORPUSCULAR HEMOGLOBIN 33.1 pg (27.0-31.0); MEAN PLATELET VOLUME 11.9 fL (7.2-11.7); MONO # 0.2 K/uL (0.0-0.8); MONO % 4.2 % (0.0-10.0); NRBC % 0.6 % (0.0-2.0); RED CELL DISTRIBUTION WIDTH 26.3 % (11.5-14.5)
[2017-01-18 08:41] LABS: ALB/GLOB RATIO 1.3 (1.0-2.1); ALKALINE PHOSPHATASE 171 U/L (38-126); ALT/SGPT 51 U/L (9-52); AST/SGOT 28 U/L (14-36); BILIRUBIN,TOTAL 4.3 mg/dL (0.2-1.3); BLOOD UREA NITROGEN 32 mg/dL (7-17); CARBON DIOXIDE 25 mmol/L (22-30); CHLORIDE 105 mmol/L (98-107); GFR AFRICAN-AMERICAN > 60; GLUCOSE,RANDOM 78 mg/dL (65-105); POTASSIUM 3.5 mmol/L (3.6-5.2); SODIUM 136 mmol/L (132-148); TOTAL PROTEIN 4.5 g/dL (6.3-8.3)
[2017-01-18 09:01] LABS: INR 1.8
--- NOTE | 2017-01-18 09:35 | CP.PCM.PN ---
Subjective - Date & Time of Evaluation Date of Evaluation: 01/18/17 Time of Evaluation: 09:30 - Subjective Subjective: Called due to oozing of purulent drainage around GT last night. Feedings put on hold. Patient already on antibiotics per ID for sepsis. Objective - Vital Signs/Intake and Output Vital Signs (last 24 hours): Temp Pulse Resp BP Pulse Ox 97.6 F 117 H 20 116/75 100 01/18/17 07:25 01/18/17 07:25 01/18/17 07:25 01/18/17 07:25 01/18/17 07:25 - Medications Medications: Current Medications Bacitracin (Bacitracin) 1 gm TOP BID [facility] Emollient Ointment (Vaseline Oint) 5 gm TOP TID [facility] Last Admin: 01/17/17 18:12 Dose: 5 gm Linezolid (Zyvox 600mg/300ml D5w) 600 mg in 300 mls @ 200 mls/hr IVPB Q12H [facility] Last Admin: 01/17/17 22:49 Dose: 200 mls/hr Aztreonam 1 gm/ Sodium (Chloride) 50 mls @ 100 mls/hr IVPB Q12H [facility] Last Admin: 01/18/17 05:08 Dose: 100 mls/hr Metoprolol Tartrate (Lopressor) 12.5 mg PO BID [facility] Last Admin: 01/17/17 17:59 Dose: Not Given Pantoprazole Sodium (Protonix Susp) 40 mg GT DAILY [facility] Last Admin: 01/17/17 11:19 Dose: 40 mg Polyethylene Glycol (Miralax) 17 gm PO HS [facility] Last Admin: 01/17/17 22:24 Dose: Not Given Spironolactone (Aldactone) 25 mg PO DAILY [facility] Last Admin: 01/17/17 11:16 Dose: Not Given - Labs Labs: 01/18/17 07:59 01/18/17 07:59 PT 20.4 SECONDS (9.7-12.2) H 01/18/17 08:50 INR 1.8 01/18/17 08:50 APTT 31 SECONDS (21-34) 01/18/17 08:50 - Constitutional Appears: Cachectic, Chronically Ill - Respiratory Exam Respiratory Exam: Decreased Breath Sounds - Cardiovascular Exam Cardiovascular Exam: REGULAR RHYTHM - GI/Abdominal Exam GI & Abdominal Exam: Soft, Normal Bowel Sounds. absent: Tenderness Additional comments: erythema and yellowish drainage on dressing from GT site under bumper device. - Extremities Exam Extremities Exam: Normal Inspection Assessment and Plan (1) Malnutrition Status: Chronic (2) Dysphagia Status: Chronic (3) Parkinson disease Status: Chronic (4) Coagulopathy Status: Resolved (5) PEG tube malfunction Status: Resolved (6) Abnormal liver enzymes Assessment & Plan: stable Status: Acute (7) Drug-induced hepatitis Assessment & Plan: Monitor LFTs as needed. Clinically stable enzymes since meds stopped. Status: Acute (8) Infection of PEG site Assessment & Plan: Hold tube feedings and local wound care needed. If site does not improve will need removal (+/- replacement) of PEG site. Unclear of family wishes given DNR/DNI status Status: Acute
[2017-01-18] MEDS ORDERED: Phytonadione 10 mg/ml Inj (Adult) IV ONE (10:44)
[2017-01-18] MEDS: Petrolatum Oint Foilpak (5 gm) TOP SCH ×3 (10:57→17:51)
[2017-01-18] MEDS: Pantoprazole 40 mg Susp UD GT SCH (10:58)
[2017-01-18] MEDS: Bacitracin Ointment 30 GM TUBE TOP SCH ×2 (10:58→17:51)
[2017-01-18] MEDS: Linezolid 600 mg in D5W 300 ml 600 MG/300 ML BAG IVPB SCH ×2 (10:58→22:59)
[2017-01-18] MEDS ORDERED: Phytonadione 10 MG in Sodium Chloride 0.9% 50 ML IVPB ONE (12:30)
--- NOTE | 2017-01-18 13:24 | CP.PCM.PN ---
Subjective - Date & Time of Evaluation Date of Evaluation: 01/18/17 Time of Evaluation: 10:00 - Subjective Subjective: The patient seen and examined Shortness of breath For thoracentesis when INR is corrected Vitamin K BiPAP Continue present treatment/antibiotics Objective - Vital Signs/Intake and Output Vital Signs (last 24 hours): Temp Pulse Resp BP Pulse Ox 97.4 F L 81 22 92/59 L 96 01/18/17 11:03 01/18/17 11:03 01/18/17 11:03 01/18/17 11:03 01/18/17 11:03 - Medications Medications: Current Medications Bacitracin (Bacitracin) 1 gm TOP BID [facility] Last Admin: 01/18/17 10:58 Dose: 1 applic Emollient Ointment (Vaseline Oint) 5 gm TOP TID [facility] Last Admin: 01/18/17 10:57 Dose: 5 gm Linezolid (Zyvox 600mg/300ml D5w) 600 mg in 300 mls @ 200 mls/hr IVPB Q12H [facility] Last Admin: 01/18/17 10:58 Dose: 200 mls/hr Aztreonam 1 gm/ Sodium (Chloride) 50 mls @ 100 mls/hr IVPB Q12H [facility] Last Admin: 01/18/17 05:08 Dose: 100 mls/hr Metoprolol Tartrate (Lopressor) 12.5 mg PO BID [facility] Last Admin: 01/18/17 11:02 Dose: Not Given Pantoprazole Sodium (Protonix Susp) 40 mg GT DAILY [facility] Last Admin: 01/18/17 10:58 Dose: 40 mg Polyethylene Glycol (Miralax) 17 gm PO HS [facility] Last Admin: 01/17/17 22:24 Dose: Not Given Spironolactone (Aldactone) 25 mg PO DAILY [facility] Last Admin: 01/18/17 11:02 Dose: Not Given - Labs Labs: 01/18/17 07:59 01/18/17 07:59 PT 20.4 SECONDS (9.7-12.2) H 01/18/17 08:50 INR 1.8 01/18/17 08:50 APTT 31 SECONDS (21-34) 01/18/17 08:50 Assessment and Plan (1) Pleural effusion Status: Acute (2) Sepsis Status: Acute (3) Parkinson disease Status: Chronic (4) Congestive cardiomyopathy Status: Chronic (5) History of B-cell lymphoma Status: Chronic
--- NOTE | 2017-01-18 19:14 | CP.PCM.PN ---
Subjective - Date & Time of Evaluation Date of Evaluation: 01/18/17 Time of Evaluation: 19:14 - Subjective Subjective: T.MAX - 97.8.SCLERA ICTERIC BP IN LOWS 77 SYSTOLIC. TODAY MORE SHORT OF BREATH ON VENTIMASK. THORACENTESIS NOT DONE BY IR BECAUSE OF ELEVATED INR. GT FEEDINGS ON HOLD SEC. TO YELLOWISH DISCHARGE AT THE EXIT SITE. LABS REVIEWED. wbc 4.0 cREATININE 0.6/bun 32 LFTS TOTAL BILI 4.3 INCREASING, TRANSAMINASES NORMAL DAUGHTER AT THE BEDSIDE. PATIENT'S CONDITION CRITICAL AND GRAVE. l Objective - Vital Signs/Intake and Output Vital Signs (last 24 hours): Temp Pulse Resp BP Pulse Ox 97.5 F L 116 H 20 77/48 L 96 01/18/17 16:41 01/18/17 17:52 01/18/17 17:52 01/18/17 17:52 01/18/17 16:41 Intake and Output: 01/18/17 01/19/17 18:59 06:59 Intake Total 400 100 Balance 400 100 - Medications Medications: Current Medications Bacitracin (Bacitracin) 1 gm TOP BID [facility] Last Admin: 01/18/17 17:51 Dose: 1 applic Emollient Ointment (Vaseline Oint) 5 gm TOP TID [facility] Last Admin: 01/18/17 17:51 Dose: 5 gm Linezolid (Zyvox 600mg/300ml D5w) 600 mg in 300 mls @ 200 mls/hr IVPB Q12H [facility] Last Admin: 01/18/17 10:58 Dose: 200 mls/hr Aztreonam 1 gm/ Sodium (Chloride) 50 mls @ 100 mls/hr IVPB Q12H [facility] Last Admin: 01/18/17 17:39 Dose: 100 mls/hr Metoprolol Tartrate (Lopressor) 12.5 mg PO BID [facility] Last Admin: 01/18/17 17:51 Dose: Not Given Pantoprazole Sodium (Protonix Susp) 40 mg GT DAILY [facility] Last Admin: 01/18/17 10:58 Dose: 40 mg Polyethylene Glycol (Miralax) 17 gm PO HS [facility] Last Admin: 01/17/17 22:24 Dose: Not Given Spironolactone (Aldactone) 25 mg PO DAILY [facility] Last Admin: 01/18/17 11:02 Dose: Not Given - Labs Labs: 01/18/17 07:59 01/18/17 07:59 PT 20.4 SECONDS (9.7-12.2) H 01/18/17 08:50 INR 1.8 01/18/17 08:50 APTT 31 SECONDS (21-34) 01/18/17 08:50 - Constitutional Appears: In Acute Distress, Cachectic, Chronically Ill - Eye Exam Eye Exam: PERRL, Scleral icterus - ENT Exam ENT Exam: Mucous Membranes Dry - Neck Exam Neck Exam: Normal Inspection. absent: Meningismus - Respiratory Exam Respiratory Exam: Decreased Breath Sounds (CHARLES. RT BASE.) - Cardiovascular Exam Cardiovascular Exam: Tachycardia, +S1, +S2 - GI/Abdominal Exam GI & Abdominal Exam: Soft, Normal Bowel Sounds. absent: Tenderness (GT WITH YELLOWISH DRAINAGE EXIT SITE. GT FEEDINGS ON HOLD.) - Extremities Exam Extremities Exam: Pedal Edema. absent: Calf Tenderness - Neurological Exam Neurological Exam: Altered - Psychiatric Exam Psychiatric exam: Flat Affect - Skin Skin Exam: Normal Color, Warm Assessment and Plan (1) Altered mental status Status: Acute (2) Sepsis Status: Acute (3) UTI (urinary tract infection) Status: Acute (4) CHF (congestive heart failure) Status: Chronic (5) History of B-cell lymphoma Status: Chronic (6) Parkinson disease Status: Chronic - Assessment and Plan (Free Text) Assessment: RESPIRATORY FAILURE / PNEUMONIA CHF WITH RIGHT-SIDED LARGE EFFUSION FAILURE TO THRIVE/ANOREXIA S/P PEG 01/01/17 LEUKOPENIA ? IMMUNE VS DRUGS ? ABX. THROMBOCYTOPENIA /SEPSIS VS DRUGS VS COAGULOPATHY. S/P GRAM-NEGATIVE SEPSIS +VE ESBL +VE E. COLI . HISTORY OF B CELL- LYMPHOMA ( IN REMISSION ) PARKINSONISM. ? EXIT SITE GT INFECTION Plan WOUND CULTURE GT -SITE. 01/17/17 SENT BY GI -P ON iv ZYVOX 600 MG EVERY 12 HOURLY. 01/10/17- ON iv AZACTAM 1 G EVERY 12 HOURLY.01/10/17. FDP/FIBRINOGEN FEEDINGS ON HOLD PER GI. MONITOR CBC PATIENT ON iv ZYVOX. PT DNR/DNI PER FAMILY. K-GIVEN TO CORRECT INR FOR THORACENTESIS. fOLLOW-UP CULTURES TO ADJUST ANTIBIOTICS. PROGNOSIS GAURDED.
--- NOTE | 2017-01-18 20:02 | CP.PCM.PN ---
Subjective - Date & Time of Evaluation Date of Evaluation: 01/18/17 Time of Evaluation: 08:05 - Subjective Subjective: Patient is lethargic as of this time. SOB is more apparent today. Thoracentesisi can raegan be done because Dr. Tang not want to do it for tjhe INR is 1.8. Vitamin K was given at `0 mgm. by IV push. Will repeat the INR in AM. BIlirubin is more elevated today. although the AST and ALT were not.BP havd been 77 syatolic the whole day today. Tube feding is on hold because of a yellowish discharge At the feeding tube site. Will discuss with family the need for replacement if they are amenable to bedacuse of a DNR situation. Objective - Vital Signs/Intake and Output Vital Signs (last 24 hours): Temp Pulse Resp BP Pulse Ox 97.5 F L 97 H 20 77/48 L 96 01/18/17 16:41 01/18/17 19:53 01/18/17 17:52 01/18/17 17:52 01/18/17 16:41 Intake and Output: 01/18/17 01/19/17 18:59 06:59 Intake Total 400 100 Balance 400 100 - Medications Medications: Current Medications Bacitracin (Bacitracin) 1 gm TOP BID [facility] Last Admin: 01/18/17 17:51 Dose: 1 applic Emollient Ointment (Vaseline Oint) 5 gm TOP TID [facility] Last Admin: 01/18/17 17:51 Dose: 5 gm Linezolid (Zyvox 600mg/300ml D5w) 600 mg in 300 mls @ 200 mls/hr IVPB Q12H [facility] Last Admin: 01/18/17 10:58 Dose: 200 mls/hr Aztreonam 1 gm/ Sodium (Chloride) 50 mls @ 100 mls/hr IVPB Q12H [facility] Last Admin: 01/18/17 17:39 Dose: 100 mls/hr Metoprolol Tartrate (Lopressor) 12.5 mg PO BID [facility] Last Admin: 01/18/17 17:51 Dose: Not Given Pantoprazole Sodium (Protonix Susp) 40 mg GT DAILY [facility] Last Admin: 01/18/17 10:58 Dose: 40 mg Polyethylene Glycol (Miralax) 17 gm PO HS [facility] Last Admin: 01/17/17 22:24 Dose: Not Given Spironolactone (Aldactone) 25 mg PO DAILY [facility] Last Admin: 01/18/17 11:02 Dose: Not Given - Labs Labs: 01/18/17 07:59 01/18/17 07:59 PT 20.4 SECONDS (9.7-12.2) H 01/18/17 08:50 INR 1.8 01/18/17 08:50 APTT 31 SECONDS (21-34) 01/18/17 08:50 - Constitutional Appears: Confused, Chronically Ill - Head Exam Head Exam: ATRAUMATIC, NORMAL INSPECTION, NORMOCEPHALIC - Eye Exam Pupil Exam: PERRL - Respiratory Exam Respiratory Exam: Decreased Breath Sounds, Respiratory Distress - Cardiovascular Exam Cardiovascular Exam: Tachycardia, REGULAR RHYTHM, +S1, +S2 - GI/Abdominal Exam GI & Abdominal Exam: Soft, Normal Bowel Sounds - Rectal Exam Rectal Exam: Deferred - Neurological Exam Neurological Exam: Altered, Awake - Skin Skin Exam: Dry, Intact, Warm Assessment and Plan (1) Altered mental status Status: Acute (2) Sepsis Status: Acute (3) UTI (urinary tract infection) Status: Acute (4) History of B-cell lymphoma Status: Chronic (5) Parkinson disease Status: Chronic (6) CHF (congestive heart failure) Status: Chronic (7) Congestive cardiomyopathy Status: Chronic (8) Pleural effusion Status: Acute (9) VRE infection (vancomycin resistant Enterococcus) Status: Acute (10) Infection due to ESBL-producing Escherichia coli Status: Acute (11) Liver enzyme elevation Status: Acute - Assessment and Plan (Free Text) Assessment: Assessment: Prognosis very poor. Status-Acute Diagnosis: Urosepsis. Vre--Sble+ in the urine. Non-ischemic cardiomyopathy CHF. Parkinsons disease. Drug induced hepatitis and fatty liver with congestive component sec to CHF. Pleural effusion recurrent Pneumonia Plan: Plan: Continue IV antibiotics. Pleural tap and will discuss with Dr. Rafal ozuna possibility of inserting a pigtail to avoid further pleural tap. On Bi PAP. Supportive care.
[2017-01-18] MEDS: POLYETHYLENE GLYCOL 3350 17 GM/Dose PACKET PO SCH (21:39)
[2017-01-19 09:08] LABS: BASO % 0.2 % (0.0-2.0); BILIRUBIN,TOTAL 4.3 mg/dL (0.2-1.3); EOS % 0.2 % (0.0-4.0); LYMPH # 0.7 K/uL (1.0-4.3); LYMPH % 14.1 % (20.0-40.0); MEAN CELL VOLUME 101.8 fL (81.0-99.0); MEAN CORPUSCULAR HEMOGLOBIN 32.3 pg (27.0-31.0); MEAN CORPUSCULAR HGB CONC 31.8 g/dL (33.0-37.0); MEAN PLATELET VOLUME 12.3 fL (7.2-11.7); MONO # 0.1 K/uL (0.0-0.8); MONO % 2.9 % (0.0-10.0); NRBC % 0.4 % (0.0-2.0); RED CELL DISTRIBUTION WIDTH 26.5 % (11.5-14.5); TOTAL PROTEIN 4.4 g/dL (6.3-8.3); WHITE BLOOD COUNT 4.9 K/uL (4.8-10.8)
[2017-01-19 09:09] LABS: ALB/GLOB RATIO 1.3 (1.0-2.1); BILIRUBIN,DIRECT 2.8 mg/dL (0.0-0.4)
[2017-01-19 09:23] LABS: FIBRINOGEN 229 mg/dL (200-400); INR 1.6
[2017-01-19 09:34] LABS: FDP INTERPRETATION POSITIVE (NEGATIVE); FDP QUANTITY >40 ug/mL (<10)
[2017-01-19] MEDS: Petrolatum Oint Foilpak (5 gm) TOP SCH ×3 (10:11→17:31)
[2017-01-19] MEDS: Pantoprazole 40 mg Susp UD GT SCH (10:11)
[2017-01-19] MEDS: Bacitracin Ointment 30 GM TUBE TOP SCH ×2 (10:11→17:31)
--- NOTE | 2017-01-19 11:01 | CP.PCM.PN ---
Subjective - Date & Time of Evaluation Date of Evaluation: 01/19/17 Time of Evaluation: 10:58 - Subjective Subjective: No new c/o. Remains lethargic. Objective - Vital Signs/Intake and Output Vital Signs (last 24 hours): Temp Pulse Resp BP Pulse Ox 97.4 F L 106 H 18 92/63 L 100 01/19/17 07:56 01/19/17 08:45 01/19/17 07:56 01/19/17 07:56 01/19/17 07:56 Intake and Output: 01/19/17 01/19/17 06:59 18:59 Intake Total 580 Balance 580 - Medications Medications: Current Medications Bacitracin (Bacitracin) 1 gm TOP BID [facility] Last Admin: 01/19/17 10:11 Dose: 1 applic Emollient Ointment (Vaseline Oint) 5 gm TOP TID [facility] Last Admin: 01/19/17 10:11 Dose: 5 gm Linezolid (Zyvox 600mg/300ml D5w) 600 mg in 300 mls @ 200 mls/hr IVPB Q12H [facility] Last Admin: 01/18/17 22:59 Dose: 200 mls/hr Aztreonam 1 gm/ Sodium (Chloride) 50 mls @ 100 mls/hr IVPB Q12H [facility] Last Admin: 01/19/17 05:28 Dose: 100 mls/hr Dextrose/Sodium Chloride (Dextrose 5%-0.45% Ns 500 Ml) 500 mls @ 30 mls/hr IV .[id number] ONE Stop: 01/19/17 12:52 Last Admin: 01/18/17 20:28 Dose: 30 mls/hr Metoprolol Tartrate (Lopressor) 12.5 mg PO BID [facility] Last Admin: 01/19/17 10:12 Dose: Not Given Pantoprazole Sodium (Protonix Susp) 40 mg GT DAILY [facility] Last Admin: 01/19/17 10:11 Dose: 40 mg Polyethylene Glycol (Miralax) 17 gm PO HS [facility] Last Admin: 01/18/17 21:39 Dose: 17 gm Spironolactone (Aldactone) 25 mg PO DAILY [facility] Last Admin: 01/19/17 10:12 Dose: Not Given - Labs Labs: 01/19/17 08:34 01/18/17 07:59 PT 17.7 SECONDS (9.7-12.2) H 01/19/17 08:34 INR 1.6 01/19/17 08:34 APTT 31 SECONDS (21-34) 01/18/17 08:50 - Constitutional Appears: No Acute Distress, Chronically Ill - Head Exam Head Exam: ATRAUMATIC, NORMOCEPHALIC - Respiratory Exam Respiratory Exam: Decreased Breath Sounds - Cardiovascular Exam Cardiovascular Exam: REGULAR RHYTHM - GI/Abdominal Exam GI & Abdominal Exam: Soft, Normal Bowel Sounds. absent: Tenderness Additional comments: GT dressing intact with minimal drainage on dressing. Assessment and Plan (1) Malnutrition Status: Chronic (2) Dysphagia Status: Chronic (3) Parkinson disease Status: Chronic (4) Coagulopathy Status: Resolved (5) PEG tube malfunction Status: Resolved (6) Abnormal liver enzymes Assessment & Plan: Elevation may be due to sepsis. Improvement noted with meds were stopped. Observe. DNR/DNI Status: Acute (7) Drug-induced hepatitis Assessment & Plan: as above Status: Acute (8) Infection of PEG site Assessment & Plan: Continue to hold tube feedings Antibiotics as per ID Continue local wound care and Bacitracin or Bactroban. Check wound culture. No current plan for tube removal or replacement. Status: Acute
[2017-01-19] MEDS: Linezolid 600 mg in D5W 300 ml 600 MG/300 ML BAG IVPB SCH (12:22)
--- NOTE | 2017-01-19 12:22 | CP.PCM.PN ---
Subjective - Date & Time of Evaluation Date of Evaluation: 01/19/17 Time of Evaluation: 12:25 - Subjective Subjective: Letharigic. Will open her eyes but is non verbal. On BiPap woih FIO2 of 50 %. Platelet count is down to 64,000 most probably secondary to Zyvox. The feeding tube has a yellowish discharge with a preliminary report of heavy growth of gram negative rods. Tube feeding had been held for the day now.On IV fluids at 30 cc/hourly. Pro time /Inr is down to 1.6 with 10 mgm. of Vitamin K given yesterday. Will give 10 mgm again today .Family is thinking about replacing th feeding tube. Daughter told me that she will let me know if they will consent to it. Once the Pro.time INR is acceptable will tap the patient. Dr. Sridhar Lynn notified aboiut the platelet count and the new culture results. Objective - Vital Signs/Intake and Output Vital Signs (last 24 hours): Temp Pulse Resp BP Pulse Ox 97.4 F L 106 H 18 92/63 L 100 01/19/17 07:56 01/19/17 08:45 01/19/17 07:56 01/19/17 07:56 01/19/17 07:56 Intake and Output: 01/19/17 01/19/17 06:59 18:59 Intake Total 580 Balance 580 - Medications Medications: Current Medications Bacitracin (Bacitracin) 1 gm TOP BID [facility] Last Admin: 01/19/17 10:11 Dose: 1 applic Emollient Ointment (Vaseline Oint) 5 gm TOP TID [facility] Last Admin: 01/19/17 10:11 Dose: 5 gm Linezolid (Zyvox 600mg/300ml D5w) 600 mg in 300 mls @ 200 mls/hr IVPB Q12H [facility] Last Admin: 01/18/17 22:59 Dose: 200 mls/hr Aztreonam 1 gm/ Sodium (Chloride) 50 mls @ 100 mls/hr IVPB Q12H [facility] Last Admin: 01/19/17 05:28 Dose: 100 mls/hr Dextrose/Sodium Chloride (Dextrose 5%-0.45% Ns 500 Ml) 500 mls @ 30 mls/hr IV .[id number] ONE Stop: 01/19/17 12:52 Last Admin: 01/18/17 20:28 Dose: 30 mls/hr Phytonadione 10 mg/ Sodium (Chloride) 51 mls @ 102 mls/hr IVPB ONCE ONE Stop: 01/19/17 12:59 Metoprolol Tartrate (Lopressor) 12.5 mg PO BID [facility] Last Admin: 01/19/17 10:12 Dose: Not Given Pantoprazole Sodium (Protonix Susp) 40 mg GT DAILY [facility] Last Admin: 01/19/17 10:11 Dose: 40 mg Polyethylene Glycol (Miralax) 17 gm PO HS [facility] Last Admin: 01/18/17 21:39 Dose: 17 gm Spironolactone (Aldactone) 25 mg PO DAILY [facility] Last Admin: 01/19/17 10:12 Dose: Not Given - Labs Labs: 01/19/17 08:34 01/18/17 07:59 PT 17.7 SECONDS (9.7-12.2) H 01/19/17 08:34 INR 1.6 01/19/17 08:34 APTT 31 SECONDS (21-34) 01/18/17 08:50 - Constitutional Appears: Confused, Chronically Ill - Head Exam Head Exam: ATRAUMATIC, NORMAL INSPECTION, NORMOCEPHALIC - Eye Exam Pupil Exam: PERRL - ENT Exam ENT Exam: Mucous Membranes Dry - Respiratory Exam Respiratory Exam: Decreased Breath Sounds - Cardiovascular Exam Cardiovascular Exam: Tachycardia, +S1, +S2 - GI/Abdominal Exam GI & Abdominal Exam: Normal Bowel Sounds - Rectal Exam Rectal Exam: Deferred - Extremities Exam Extremities Exam: Normal Inspection - Neurological Exam Neurological Exam: Altered - Skin Skin Exam: Dry, Intact, Warm Assessment and Plan (1) Altered mental status Status: Acute (2) Sepsis Status: Acute (3) UTI (urinary tract infection) Status: Acute (4) History of B-cell lymphoma Status: Chronic (5) Parkinson disease Status: Chronic (6) CHF (congestive heart failure) Status: Chronic (7) Congestive cardiomyopathy Status: Chronic (8) Pleural effusion Status: Acute (9) VRE infection (vancomycin resistant Enterococcus) Status: Acute (10) Infection due to ESBL-producing Escherichia coli Status: Acute (11) Liver enzyme elevation Status: Acute - Assessment and Plan (Free Text) Assessment: Prognosis - grave. Status- acute. Diagnosis. Urosepsis VRE-SBLE infection of the urine. Gram negative inf of the feeding tube site. Non ischemic cardiomyopathy Congestive heart failre Drug induced hepatitis. Drug induced thrombocytopenia. Diffuse large cell lymphoma in remission. Hypotension Parkinsons disease. Failure to thrive. Plan: Plan: D/C IV Zyvox as per Dr. Sridhar Lynn Hold tube feeding as of now. Iv fluids. Continue BI Pap at 50% FIO2. Supportive care.
[2017-01-19] MEDS ORDERED: Phytonadione 10 MG in Sodium Chloride 0.9% 50 ML IVPB ONE (12:30)
--- NOTE | 2017-01-19 14:27 | CP.PCM.PN ---
Subjective - Date & Time of Evaluation Date of Evaluation: 01/19/17 Time of Evaluation: 14:27 - Subjective Subjective: HYPOTHERMIC, BP IN LOW-DOSE 88-94 SYSTOLIC/68. REMAINS LETHARGIC. ON VENTIMASK. LABS REVIEWED WOUND CULTURE PEG EXIT SITE- GNR. INCREASING THROMBOCYTOPENIA NOTED. PLT.64K. FDP+VE FIBRIN -DEGRADATION PRODUCTS>40 Objective - Vital Signs/Intake and Output Vital Signs (last 24 hours): Temp Pulse Resp BP Pulse Ox 97.4 F L 113 H 18 92/63 L 100 01/19/17 07:56 01/19/17 12:00 01/19/17 07:56 01/19/17 07:56 01/19/17 07:56 Intake and Output: 01/19/17 01/19/17 06:59 18:59 Intake Total 580 Balance 580 - Medications Medications: Current Medications Bacitracin (Bacitracin) 1 gm TOP BID [facility] Last Admin: 01/19/17 10:11 Dose: 1 applic Emollient Ointment (Vaseline Oint) 5 gm TOP TID [facility] Last Admin: 01/19/17 13:11 Dose: 5 gm Aztreonam 1 gm/ Sodium (Chloride) 50 mls @ 100 mls/hr IVPB Q12H [facility] Last Admin: 01/19/17 05:28 Dose: 100 mls/hr Metoprolol Tartrate (Lopressor) 12.5 mg PO BID [facility] Last Admin: 01/19/17 10:12 Dose: Not Given Pantoprazole Sodium (Protonix Susp) 40 mg GT DAILY [facility] Last Admin: 01/19/17 10:11 Dose: 40 mg Polyethylene Glycol (Miralax) 17 gm PO HS [facility] Last Admin: 01/18/17 21:39 Dose: 17 gm Spironolactone (Aldactone) 25 mg PO DAILY [facility] Last Admin: 01/19/17 10:12 Dose: Not Given - Labs Labs: 01/19/17 08:34 01/18/17 07:59 PT 17.7 SECONDS (9.7-12.2) H 01/19/17 08:34 INR 1.6 01/19/17 08:34 APTT 31 SECONDS (21-34) 01/18/17 08:50 - Constitutional Appears: No Acute Distress, Cachectic, Chronically Ill - Head Exam Head Exam: NORMAL INSPECTION - Eye Exam Eye Exam: PERRL, Scleral icterus - ENT Exam ENT Exam: Mucous Membranes Dry - Neck Exam Neck Exam: Normal Inspection - Respiratory Exam Respiratory Exam: Decreased Breath Sounds - Cardiovascular Exam Cardiovascular Exam: Tachycardia, REGULAR RHYTHM, +S1, +S2 - GI/Abdominal Exam GI & Abdominal Exam: Soft, Normal Bowel Sounds (PEG SITE +DRAINAGE EXIT SITE.) - Extremities Exam Extremities Exam: absent: Calf Tenderness, Pedal Edema - Neurological Exam Neurological Exam: Altered - Psychiatric Exam Psychiatric exam: Flat Affect - Skin Skin Exam: Warm Assessment and Plan (1) Altered mental status Status: Acute (2) Sepsis Status: Acute (3) UTI (urinary tract infection) Status: Acute (4) CHF (congestive heart failure) Status: Chronic (5) History of B-cell lymphoma Status: Chronic (6) Parkinson disease Status: Chronic - Assessment and Plan (Free Text) Assessment: RESPIRATORY FAILURE / PNEUMONIA CHF WITH RIGHT-SIDED LARGE EFFUSION FAILURE TO THRIVE/ANOREXIA S/P PEG 01/01/17 LEUKOPENIA ? IMMUNE VS DRUGS ? ABX. THROMBOCYTOPENIA /SEPSIS VS DRUGS VS COAGULOPATHY. S/P GRAM-NEGATIVE SEPSIS +VE ESBL +VE E. COLI . HISTORY OF B CELL- LYMPHOMA ( IN REMISSION ) PARKINSONISM. EXIT SITE GT INFECTION+VE GNR Plan WOUND CULTURE GT -SITE. 01/17/17 SENT BY GI -P DC iv ZYVOX 600 MG EVERY 12 HOURLY. 01/10/17- 01/19 IN VIEW OF INCREASING THROMBOCYTOPENA/ AND +VE GNR PEG EXIT SITE. CONTINUE ON iv AZACTAM 1 G EVERY 12 HOURLY.01/10/17 FEEDINGS ON HOLD PER GI. MONITOR PLATELETS PT DNR/DNI PER FAMILY.
[2017-01-19] MEDS: Dextrose 5%/0.45% NS 1,000 ML IV SCH (15:59)
[2017-01-19] MEDS: POLYETHYLENE GLYCOL 3350 17 GM/Dose PACKET PO SCH (21:20)
[2017-01-20 08:13] LABS: INR 1.5
[2017-01-20 08:17] LABS: BASO % 0.2 % (0.0-2.0); EOS % 0.5 % (0.0-4.0); HEMATOCRIT 32.2 % (34.0-47.0); LYMPH # 0.6 K/uL (1.0-4.3); LYMPH % 20.1 % (20.0-40.0); MEAN CELL VOLUME 100.2 fL (81.0-99.0); MEAN CORPUSCULAR HEMOGLOBIN 33.6 pg (27.0-31.0); MEAN CORPUSCULAR HGB CONC 33.5 g/dL (33.0-37.0); MEAN PLATELET VOLUME 12.4 fL (7.2-11.7); MONO # 0.1 K/uL (0.0-0.8); MONO % 3.8 % (0.0-10.0); NRBC % 0.1 % (0.0-2.0); RED CELL DISTRIBUTION WIDTH 26.4 % (11.5-14.5)
[2017-01-20 08:43] LABS: ALKALINE PHOSPHATASE 136 U/L (38-126); ALT/SGPT 44 U/L (9-52); AST/SGOT 33 U/L (14-36); BILIRUBIN,TOTAL 3.4 mg/dL (0.2-1.3); BLOOD UREA NITROGEN 33 mg/dL (7-17); CALCIUM 8.3 mg/dl (8.6-10.4); CARBON DIOXIDE 24 mmol/L (22-30); CHLORIDE 106 mmol/L (98-107); GFR AFRICAN-AMERICAN > 60; GLUCOSE,RANDOM 73 mg/dL (65-105); POTASSIUM 3.5 mmol/L (3.6-5.2); SODIUM 136 mmol/L (132-148); TOTAL PROTEIN 4.4 g/dL (6.3-8.3)
[2017-01-20 08:45] LABS: ALB/GLOB RATIO 1.2 (1.0-2.1)
[2017-01-20] MEDS: Pantoprazole 40 mg Susp UD GT SCH (09:32)
[2017-01-20] MEDS: Bacitracin Ointment 30 GM TUBE TOP SCH ×2 (09:33→18:07)
[2017-01-20] MEDS: Petrolatum Oint Foilpak (5 gm) TOP SCH ×3 (09:34→18:15)
--- NOTE | 2017-01-20 12:02 | CP.PCM.PN ---
Subjective - Date & Time of Evaluation Date of Evaluation: 01/20/17 Time of Evaluation: 11:59 - Subjective Subjective: PEG site cultures + for GNR. Antibiotics adjusted per ID No new c/o. Lethargic. Objective - Vital Signs/Intake and Output Vital Signs (last 24 hours): Temp Pulse Resp BP Pulse Ox 97.3 F L 106 H 18 95/65 L 100 01/20/17 08:36 01/20/17 08:59 01/20/17 08:36 01/20/17 08:36 01/20/17 08:36 Intake and Output: 01/20/17 01/20/17 06:59 18:59 Intake Total 890 Balance 890 - Medications Medications: Current Medications Bacitracin (Bacitracin) 1 gm TOP BID [facility] Last Admin: 01/20/17 09:33 Dose: 1 applic Emollient Ointment (Vaseline Oint) 5 gm TOP TID [facility] Last Admin: 01/20/17 09:34 Dose: 5 gm Aztreonam 1 gm/ Sodium (Chloride) 50 mls @ 100 mls/hr IVPB Q12H [facility] Last Admin: 01/20/17 05:43 Dose: 100 mls/hr Dextrose/Sodium Chloride (Dextrose 5%/0.45% Ns 1000 Ml) 1,000 mls @ 45 mls/hr IV .[id number] [facility] Last Admin: 01/19/17 15:59 Dose: 45 mls/hr Metoprolol Tartrate (Lopressor) 12.5 mg PO BID [facility] Last Admin: 01/20/17 09:06 Dose: Not Given Pantoprazole Sodium (Protonix Susp) 40 mg GT DAILY [facility] Last Admin: 01/20/17 09:32 Dose: 40 mg Polyethylene Glycol (Miralax) 17 gm PO HS [facility] Last Admin: 01/19/17 21:20 Dose: 17 gm Spironolactone (Aldactone) 25 mg PO DAILY [facility] Last Admin: 01/20/17 09:06 Dose: Not Given - Labs Labs: 01/20/17 07:54 01/20/17 07:54 PT 17.3 SECONDS (9.7-12.2) H 01/20/17 07:54 INR 1.5 01/20/17 07:54 APTT 31 SECONDS (21-34) 01/18/17 08:50 - Constitutional Appears: Cachectic, Chronically Ill - Respiratory Exam Respiratory Exam: Decreased Breath Sounds - Cardiovascular Exam Cardiovascular Exam: REGULAR RHYTHM - GI/Abdominal Exam GI & Abdominal Exam: Soft, Normal Bowel Sounds. absent: Tenderness Additional comments: GT site intact with dressing dry. - Extremities Exam Extremities Exam: Normal Inspection Assessment and Plan (1) Malnutrition Status: Chronic (2) Dysphagia Status: Chronic (3) Parkinson disease Status: Chronic (4) Coagulopathy Status: Resolved (5) PEG tube malfunction Status: Resolved (6) Abnormal liver enzymes Status: Acute (7) Drug-induced hepatitis Assessment & Plan: LFT's stable thus far. Elevation may also be due to sepsis. Status: Acute (8) Infection of PEG site Assessment & Plan: +GNR species noted from PEG site culture Antibiotics per ID Family does NOT want PEG to be replaced when this was discussed with them at bedside yesterday. Would continue local wound care and consider resuming GT feedings this week if site appears clean. Status: Acute
[2017-01-20] MEDS: Dextrose 5%/0.45% NS 1,000 ML IV SCH (13:04)
--- NOTE | 2017-01-20 18:33 | CP.PCM.PN ---
Subjective - Date & Time of Evaluation Date of Evaluation: 01/20/17 Time of Evaluation: 06:30 - Subjective Subjective: Lethargic. Patient barely opens her eyes. BP still in the low 90's. Feeding on ho;d. On IV fluids at 45 cc/hourly. Peg site culture + for Gram negative rods. Identification and sensitivity pending Objective - Vital Signs/Intake and Output Vital Signs (last 24 hours): Temp Pulse Resp BP Pulse Ox 97.4 F L 106 H 20 97/61 L 96 01/20/17 16:33 01/20/17 16:33 01/20/17 16:33 01/20/17 16:33 01/20/17 16:33 Intake and Output: 01/20/17 01/20/17 06:59 18:59 Intake Total 890 Balance 890 - Medications Medications: Current Medications Bacitracin (Bacitracin) 1 gm TOP BID [facility] Last Admin: 01/20/17 18:07 Dose: 1 applic Emollient Ointment (Vaseline Oint) 5 gm TOP TID [facility] Last Admin: 01/20/17 18:15 Dose: Not Given Aztreonam 1 gm/ Sodium (Chloride) 50 mls @ 100 mls/hr IVPB Q12H [facility] Last Admin: 01/20/17 18:06 Dose: 100 mls/hr Dextrose/Sodium Chloride (Dextrose 5%/0.45% Ns 1000 Ml) 1,000 mls @ 45 mls/hr IV .[id number] [facility] Last Admin: 01/20/17 13:04 Dose: Not Given Metoprolol Tartrate (Lopressor) 12.5 mg PO BID [facility] Last Admin: 01/20/17 18:08 Dose: 12.5 mg Pantoprazole Sodium (Protonix Susp) 40 mg GT DAILY [facility] Last Admin: 01/20/17 09:32 Dose: 40 mg Polyethylene Glycol (Miralax) 17 gm PO HS [facility] Last Admin: 01/19/17 21:20 Dose: 17 gm Spironolactone (Aldactone) 25 mg PO DAILY [facility] Last Admin: 01/20/17 09:06 Dose: Not Given - Labs Labs: 01/20/17 07:54 01/20/17 07:54 PT 17.3 SECONDS (9.7-12.2) H 01/20/17 07:54 INR 1.5 01/20/17 07:54 APTT 31 SECONDS (21-34) 01/18/17 08:50 - Constitutional Appears: Confused, Cachectic, Chronically Ill - Head Exam Head Exam: ATRAUMATIC, NORMAL INSPECTION, NORMOCEPHALIC - ENT Exam ENT Exam: Mucous Membranes Dry - Respiratory Exam Respiratory Exam: Decreased Breath Sounds - Cardiovascular Exam Cardiovascular Exam: Tachycardia, REGULAR RHYTHM, +S1, +S2 - GI/Abdominal Exam GI & Abdominal Exam: Soft Additional comments: Peg site with slight yellowish discharge. - Rectal Exam Rectal Exam: Deferred Assessment and Plan (1) Altered mental status Status: Acute (2) Sepsis Status: Acute (3) UTI (urinary tract infection) Status: Acute (4) History of B-cell lymphoma Status: Chronic (5) Parkinson disease Status: Chronic (6) CHF (congestive heart failure) Status: Chronic (7) Congestive cardiomyopathy Status: Chronic (8) Pleural effusion Status: Acute (9) VRE infection (vancomycin resistant Enterococcus) Status: Acute (10) Infection due to ESBL-producing Escherichia coli Status: Acute (11) Liver enzyme elevation Status: Acute - Assessment and Plan (Free Text) Assessment: Prognosis-Nil. STATUS--Acute Assessment: Urosepsis Non ischemic cardiomyopathy. Congestive heart failure. On tube feeding. Gram negative + at Peg site. Parkinsons Disease. Pleural effusion. Plan: Plan: Hold tube feeding. IV antibiotics as per Dr. Lynn, For pleural tap in AM.
--- NOTE | 2017-01-20 19:28 | CP.PCM.PN ---
Subjective - Date & Time of Evaluation Date of Evaluation: 01/20/17 Time of Evaluation: 17:40 - Subjective Subjective: the patient seen and examined Remains on BiPAP and short of breath Open eyes to stimuli For thoracentesis/pigtail catheter insertion because of recurrent pleural effusion Objective - Vital Signs/Intake and Output Vital Signs (last 24 hours): Temp Pulse Resp BP Pulse Ox 97.4 F L 108 H 20 97/61 L 96 01/20/17 16:33 01/20/17 19:15 01/20/17 16:33 01/20/17 16:33 01/20/17 16:33 - Medications Medications: Current Medications Bacitracin (Bacitracin) 1 gm TOP BID [facility] Last Admin: 01/20/17 18:07 Dose: 1 applic Emollient Ointment (Vaseline Oint) 5 gm TOP TID [facility] Last Admin: 01/20/17 18:15 Dose: Not Given Dextrose/Sodium Chloride (Dextrose 5%/0.45% Ns 1000 Ml) 1,000 mls @ 45 mls/hr IV .[id number] [facility] Last Admin: 01/20/17 13:04 Dose: Not Given Potassium Chloride (Potassium Chloride 20 Meq/100 Ml) 20 meq in 100 mls @ 50 mls/hr IVPB ONCE ONE Stop: 01/20/17 20:39 Last Admin: 01/20/17 19:20 Dose: 50 mls/hr Colistimethate Sodium 150 mg/ (Sodium Chloride) 100 mls @ 200 mls/hr IV Q12H [facility] Metoprolol Tartrate (Lopressor) 12.5 mg PO BID [facility] Last Admin: 01/20/17 18:08 Dose: 12.5 mg Pantoprazole Sodium (Protonix Susp) 40 mg GT DAILY [facility] Last Admin: 01/20/17 09:32 Dose: 40 mg Polyethylene Glycol (Miralax) 17 gm PO HS [facility] Last Admin: 01/19/17 21:20 Dose: 17 gm Spironolactone (Aldactone) 25 mg PO DAILY [facility] Last Admin: 01/20/17 09:06 Dose: Not Given - Labs Labs: 01/20/17 07:54 01/20/17 07:54 PT 17.3 SECONDS (9.7-12.2) H 01/20/17 07:54 INR 1.5 01/20/17 07:54 APTT 31 SECONDS (21-34) 01/18/17 08:50 Assessment and Plan (1) Pleural effusion Status: Acute (2) Sepsis Status: Acute (3) Parkinson disease Status: Chronic (4) Congestive cardiomyopathy Status: Chronic (5) History of B-cell lymphoma Status: Chronic
--- NOTE | 2017-01-20 19:37 | CP.PCM.PN ---
Subjective - Date & Time of Evaluation Date of Evaluation: 01/20/17 Time of Evaluation: 19:37 - Subjective Subjective: PEG SITE CULTURES +VE ENTEROBACTER CLOACAE SP (MDR)/ YEAST. ANTIBIOTICS ADJUSTED. STARTED ON IV COLISTIN /IV AVYCAZ 01/20/17. LAB TO CHECK FOR MICS TO ABOVE. LABS REVIEWED, WBC 3.0 PLT 68 K. LFTS N-TRANSAMINASES, T. BILI 3.4 , AP 136 IMPROVING Objective - Vital Signs/Intake and Output Vital Signs (last 24 hours): Temp Pulse Resp BP Pulse Ox 97.4 F L 108 H 20 97/61 L 96 01/20/17 16:33 01/20/17 19:15 01/20/17 16:33 01/20/17 16:33 01/20/17 16:33 - Medications Medications: Current Medications Bacitracin (Bacitracin) 1 gm TOP BID [facility] Last Admin: 01/20/17 18:07 Dose: 1 applic Emollient Ointment (Vaseline Oint) 5 gm TOP TID [facility] Last Admin: 01/20/17 18:15 Dose: Not Given Dextrose/Sodium Chloride (Dextrose 5%/0.45% Ns 1000 Ml) 1,000 mls @ 45 mls/hr IV .[id number] [facility] Last Admin: 01/20/17 13:04 Dose: Not Given Potassium Chloride (Potassium Chloride 20 Meq/100 Ml) 20 meq in 100 mls @ 50 mls/hr IVPB ONCE ONE Stop: 01/20/17 20:39 Last Admin: 01/20/17 19:20 Dose: 50 mls/hr Colistimethate Sodium 150 mg/ (Sodium Chloride) 100 mls @ 200 mls/hr IV Q12H [facility] Metoprolol Tartrate (Lopressor) 12.5 mg PO BID [facility] Last Admin: 01/20/17 18:08 Dose: 12.5 mg Pantoprazole Sodium (Protonix Susp) 40 mg GT DAILY [facility] Last Admin: 01/20/17 09:32 Dose: 40 mg Polyethylene Glycol (Miralax) 17 gm PO HS [facility] Last Admin: 01/19/17 21:20 Dose: 17 gm Spironolactone (Aldactone) 25 mg PO DAILY [facility] Last Admin: 01/20/17 09:06 Dose: Not Given - Labs Labs: 01/20/17 07:54 01/20/17 07:54 PT 17.3 SECONDS (9.7-12.2) H 01/20/17 07:54 INR 1.5 01/20/17 07:54 APTT 31 SECONDS (21-34) 01/18/17 08:50 - Constitutional Appears: No Acute Distress, Cachectic, Chronically Ill - Head Exam Head Exam: NORMAL INSPECTION - Eye Exam Eye Exam: EOMI, PERRL, Scleral icterus - ENT Exam ENT Exam: Normal Oropharynx - Neck Exam Neck Exam: Normal Inspection - Respiratory Exam Respiratory Exam: Decreased Breath Sounds - GI/Abdominal Exam GI & Abdominal Exam: Soft, Normal Bowel Sounds (PEG SITE DRAINAGE+VE ON DRESSING.) - Extremities Exam Extremities Exam: Pedal Edema. absent: Calf Tenderness - Neurological Exam Neurological Exam: Altered - Psychiatric Exam Psychiatric exam: Flat Affect - Skin Skin Exam: Normal Color, Warm Assessment and Plan (1) Altered mental status Status: Acute (2) Sepsis Status: Acute (3) UTI (urinary tract infection) Status: Acute (4) CHF (congestive heart failure) Status: Chronic (5) History of B-cell lymphoma Status: Chronic (6) Parkinson disease Status: Chronic - Assessment and Plan (Free Text) Assessment: RESPIRATORY FAILURE / PNEUMONIA CHF WITH RIGHT-SIDED LARGE EFFUSION FAILURE TO THRIVE/ANOREXIA S/P PEG 01/01/17 LEUKOPENIA ? IMMUNE VS DRUGS ? ABX. THROMBOCYTOPENIA /SEPSIS VS DRUGS VS COAGULOPATHY. S/P GRAM-NEGATIVE SEPSIS +VE ESBL +VE E. COLI . HISTORY OF B CELL- LYMPHOMA ( IN REMISSION ) PARKINSONISM. EXIT SITE GT INFECTION+VE ENTEROBACTER-CLOACAE Plan WOUND CULTURE GT -SITE. 01/17/17 SENT BY GI -NOTED DC IV AZACTAM 1 G EVERY 12 HOURLY.01/10/17- 01/20/17. BLOOD CULTURE X 2 SETS STAT. START IV COLISTIN 150MG IVPB Q 12HRLY .INFUSER OVER 90 MIN . ADD IV AVYCAZ 1.25MG IVPB Q 8HRLY FOR SYNERGY.AND MDR ENTEROBACTER AEROGENES. LOTRISONE LOCALLY TO EXT SITE BID FEEDINGS ON HOLD PER GI. FOR REPLACEMENT GT PER GI ONCE PT INR STABLE MONITOR PLATELETS
[2017-01-20] MEDS: POLYETHYLENE GLYCOL 3350 17 GM/Dose PACKET PO SCH (22:00)
[2017-01-21] MEDS: Dextrose 5%/0.45% NS 1,000 ML IV SCH ×2 (05:14→12:09)
[2017-01-21 08:36] LABS: BLOOD UREA NITROGEN 33 mg/dL (7-17); CALCIUM 8.2 mg/dl (8.6-10.4); CARBON DIOXIDE 21 mmol/L (22-30); CHLORIDE 108 mmol/L (98-107); GFR AFRICAN-AMERICAN > 60; GLUCOSE,RANDOM 72 mg/dL (65-105); POTASSIUM 3.8 mmol/L (3.6-5.2); SODIUM 140 mmol/L (132-148)
--- NOTE | 2017-01-21 09:47 | CP.PCM.PN ---
Subjective - Date & Time of Evaluation Date of Evaluation: 01/21/17 Time of Evaluation: 09:44 - Subjective Subjective: No clinical change. For thoracentesis today. PEG feedings on hold for infection. Objective - Vital Signs/Intake and Output Vital Signs (last 24 hours): Temp Pulse Resp BP Pulse Ox 97.5 F L 120 H 20 90/57 L 100 01/21/17 08:30 01/21/17 09:06 01/21/17 09:06 01/21/17 09:06 01/21/17 08:30 - Medications Medications: Current Medications Bacitracin (Bacitracin) 1 gm TOP BID [facility] Last Admin: 01/20/17 18:07 Dose: 1 applic Clotrimazole (Lotrimin 1%) 0.5 gm TOP BID [facility] Emollient Ointment (Vaseline Oint) 5 gm TOP TID [facility] Last Admin: 01/20/17 18:15 Dose: Not Given Dextrose/Sodium Chloride (Dextrose 5%/0.45% Ns 1000 Ml) 1,000 mls @ 45 mls/hr IV .[id number] [facility] Last Admin: 01/21/17 05:14 Dose: 45 mls/hr Colistimethate Sodium 150 mg/ (Sodium Chloride) 100 mls @ 200 mls/hr IV Q12H [facility] Last Admin: 01/21/17 09:02 Dose: 200 mls/hr Ceftazidime/Avibactam 1.25 gm/ (Sodium Chloride) 100 mls @ 50 mls/hr IV Q8H [facility] Last Admin: 01/21/17 04:00 Dose: 50 mls/hr Metoprolol Tartrate (Lopressor) 12.5 mg PO BID [facility] Last Admin: 01/20/17 18:08 Dose: 12.5 mg Pantoprazole Sodium (Protonix Susp) 40 mg GT DAILY [facility] Last Admin: 01/20/17 09:32 Dose: 40 mg Polyethylene Glycol (Miralax) 17 gm PO HS [facility] Last Admin: 01/20/17 22:00 Dose: Not Given Spironolactone (Aldactone) 25 mg PO DAILY [facility] Last Admin: 01/20/17 09:06 Dose: Not Given - Labs Labs: 01/20/17 07:54 01/21/17 07:11 PT 17.3 SECONDS (9.7-12.2) H 01/20/17 07:54 INR 1.5 01/20/17 07:54 APTT 31 SECONDS (21-34) 01/18/17 08:50 - Constitutional Appears: No Acute Distress, Chronically Ill - Respiratory Exam Respiratory Exam: Decreased Breath Sounds, NORMAL BREATHING PATTERN - Cardiovascular Exam Cardiovascular Exam: REGULAR RHYTHM - GI/Abdominal Exam GI & Abdominal Exam: Soft, Hypoactive Bowel Sounds. absent: Distended, Tenderness, Mass, Rebound Additional comments: GT site still with some drainage and dressing wet. - Extremities Exam Extremities Exam: Normal Inspection Assessment and Plan (1) Malnutrition Status: Chronic (2) Dysphagia Status: Chronic (3) Parkinson disease Status: Chronic (4) Coagulopathy Status: Resolved (5) PEG tube malfunction Status: Resolved (6) Abnormal liver enzymes Status: Acute (7) Drug-induced hepatitis Assessment & Plan: Monitor LFTs. Status: Acute (8) Infection of PEG site Assessment & Plan: Will continue to hold feedings and IV antibiotics per ID In view of poor prognosis would like to defer invasive procedure to remove PEG unless there is significant clinical improvement and new GT site is warranted. Family still undecided about tube status. Supportive care. Status: Acute
[2017-01-21] MEDS: Petrolatum Oint Foilpak (5 gm) TOP SCH ×3 (10:44→18:01)
[2017-01-21] MEDS: Clotrimazole 1% Cream(30 gm) TOP SCH ×2 (10:45→18:01)
[2017-01-21] MEDS: Bacitracin Ointment 30 GM TUBE TOP SCH ×2 (10:47→18:01)
--- NOTE | 2017-01-21 11:20 | PCM.SURG1 ---
Surgeon's Initial Post Op Note - Surgeon's Notes Surgeon: Monroe Tang MD Cheese Grader: NONE Type of Anesthesia: Local Pre-Operative Diagnosis: Pleural effusion Operative Findings: US showed moderate right pleural effusion Post-Operative Diagnosis: Pleural effusion Operation Performed: US guided right thoracentesis. Specimen/Specimens Removed: 650 cc of straw colored fluid Estimated Blood Loss: EBL {In ML}: 0 Drains Used: No Drains Post-Op Condition: Fair Date of Surgery/Procedure: 01/21/17 Time of Surgery/Procedure: 11:15
--- NOTE | 2017-01-21 11:55 | CP.PCM.PN ---
Subjective - Date & Time of Evaluation Date of Evaluation: 01/21/17 Time of Evaluation: 11:30 - Subjective Subjective: Patient seen and examined Remains on BiPAP and in respiratory distress Lethargic Afebrile Being treated for sepsis Status post thoracentesis prognosis poor Case discussed with family Objective - Vital Signs/Intake and Output Vital Signs (last 24 hours): Temp Pulse Resp BP Pulse Ox 97.5 F L 120 H 20 90/57 L 100 01/21/17 08:30 01/21/17 09:06 01/21/17 09:06 01/21/17 09:06 01/21/17 08:30 - Medications Medications: Current Medications Bacitracin (Bacitracin) 1 gm TOP BID [facility]S [facility] Last Admin: 01/21/17 10:47 Dose: 1 applic Clotrimazole (Lotrimin 1%) 0.5 gm TOP BID [facility] 234 [facility]S [facility] Last Admin: 01/21/17 10:45 Dose: 1 applic Emollient Ointment (Vaseline Oint) 5 gm TOP TID [facility] Last Admin: 01/21/17 10:44 Dose: 5 gm Dextrose/Sodium Chloride (Dextrose 5%/0.45% Ns 1000 Ml) 1,000 mls @ 45 mls/hr IV .[id number] [facility] 234 [facility]S [facility] Last Admin: 01/21/17 05:14 Dose: 45 mls/hr Colistimethate Sodium 150 mg/ (Sodium Chloride) 100 mls @ 200 mls/hr IV Q12H [facility] 234 [facility]S [facility] Last Admin: 01/21/17 09:02 Dose: 200 mls/hr Ceftazidime/Avibactam 1.25 gm/ (Sodium Chloride) 100 mls @ 50 mls/hr IV Q8H [facility] 234 [facility]S [facility] Last Admin: 01/21/17 04:00 Dose: 50 mls/hr Metoprolol Tartrate (Lopressor) 12.5 mg PO BID [facility] Last Admin: 01/21/17 10:43 Dose: Not Given Pantoprazole Sodium (Protonix Susp) 40 mg GT DAILY [facility] 234 [facility]S [facility] Last Admin: 01/20/17 09:32 Dose: 40 mg Polyethylene Glycol (Miralax) 17 gm PO HS [facility] 234 [facility]S [facility] Last Admin: 01/20/17 22:00 Dose: Not Given Spironolactone (Aldactone) 25 mg PO DAILY [facility] 234 [facility]S [facility] Last Admin: 01/21/17 10:43 Dose: Not Given - Labs Labs: 01/20/17 07:54 01/21/17 07:11 PT 17.3 SECONDS (9.7-12.2) H 01/20/17 07:54 INR 1.5 01/20/17 07:54 APTT 31 SECONDS (21-34) 01/18/17 08:50 Assessment and Plan (1) Pleural effusion Status: Acute (2) Sepsis Status: Acute (3) Parkinson disease Status: Chronic (4) Congestive cardiomyopathy Status: Chronic (5) History of B-cell lymphoma Status: Chronic
[2017-01-21] MEDS: Pantoprazole 40 mg Susp UD GT SCH (12:14)
[2017-01-21 12:24] LABS: BODY FLUID TYPE PLEURAL/THORACENTESI
[2017-01-21 13:13] LABS: BF GROSS APPEARANCE SL CLOUDY (CLEAR); BODY FLUID TOTAL COUNT 100 (0-0)
--- NOTE | 2017-01-21 14:02 | CP.PCM.PN ---
Subjective - Date & Time of Evaluation Date of Evaluation: 01/21/17 Time of Evaluation: 14:02 - Subjective Subjective: afebrile, lethargic and drowsy. very weak.Less dyspneic s/p thoracentesis-650 cc fluid DRAINED. RN NOTIFIED LATE IN THE EVENING OF POSITIVE BLOOD CULTURE BLOOD CULTURE 1:2 SETS +VE GNR IN AEROBIC BOTTLE ONLY. PEG EXIT SITE CULTURE +VE ENTEROBACTER CLOACAE- S 2 COLISTIN /YEAST. PATIENT STARTED ON IV COLISTIN 150 MG EVERY 12 HOURLY. 01/20/17. PATIENT ALSO ON IV AVYCAZ 1.25 G iv PIGGYBACK EVERY 8 HOURLY. 01/20/17. LABS 01/21/17 creatinine 0.7/BUN 33. 01/20/17 LFTS N-TRANSAMINASES, T. BILI 3.4 , AP 136 IMPROVING Objective - Vital Signs/Intake and Output Vital Signs (last 24 hours): Temp Pulse Resp BP Pulse Ox 97.5 F L 120 H 20 90/57 L 100 01/21/17 08:30 01/21/17 09:06 01/21/17 09:06 01/21/17 09:06 01/21/17 08:30 - Medications Medications: Current Medications Bacitracin (Bacitracin) 1 gm TOP BID [facility] Last Admin: 01/21/17 10:47 Dose: 1 applic Clotrimazole (Lotrimin 1%) 0.5 gm TOP BID [facility] Last Admin: 01/21/17 10:45 Dose: 1 applic Emollient Ointment (Vaseline Oint) 5 gm TOP TID [facility] Last Admin: 01/21/17 13:18 Dose: 5 gm Dextrose/Sodium Chloride (Dextrose 5%/0.45% Ns 1000 Ml) 1,000 mls @ 45 mls/hr IV .[id number] [facility] Last Admin: 01/21/17 12:09 Dose: Not Given Colistimethate Sodium 150 mg/ (Sodium Chloride) 100 mls @ 200 mls/hr IV Q12H [facility] Last Admin: 01/21/17 09:02 Dose: 200 mls/hr Ceftazidime/Avibactam 1.25 gm/ (Sodium Chloride) 100 mls @ 50 mls/hr IV Q8H [facility] Last Admin: 01/21/17 12:13 Dose: 50 mls/hr Metoprolol Tartrate (Lopressor) 12.5 mg PO BID [facility] Last Admin: 01/21/17 10:43 Dose: Not Given Pantoprazole Sodium (Protonix Susp) 40 mg GT DAILY [facility] Last Admin: 01/21/17 12:14 Dose: 40 mg Polyethylene Glycol (Miralax) 17 gm PO HS [facility] Last Admin: 01/20/17 22:00 Dose: Not Given Spironolactone (Aldactone) 25 mg PO DAILY [facility] Last Admin: 01/21/17 10:43 Dose: Not Given - Labs Labs: 01/20/17 07:54 01/21/17 07:11 PT 17.3 SECONDS (9.7-12.2) H 01/20/17 07:54 INR 1.5 01/20/17 07:54 APTT 31 SECONDS (21-34) 01/18/17 08:50 - Constitutional Appears: Confused, Cachectic, Chronically Ill - Head Exam Head Exam: NORMAL INSPECTION - Eye Exam Eye Exam: EOMI, PERRL, Scleral icterus - ENT Exam ENT Exam: Normal Oropharynx - Neck Exam Neck Exam: Normal Inspection - Respiratory Exam Respiratory Exam: Decreased Breath Sounds (BASES.) - Cardiovascular Exam Cardiovascular Exam: Tachycardia, +S1, +S2 - GI/Abdominal Exam GI & Abdominal Exam: Soft, Normal Bowel Sounds. absent: Tenderness - Extremities Exam Extremities Exam: Pedal Edema. absent: Calf Tenderness - Neurological Exam Neurological Exam: Altered - Psychiatric Exam Psychiatric exam: Flat Affect - Skin Skin Exam: Warm Assessment and Plan (1) Altered mental status Status: Acute (2) Sepsis Status: Acute (3) UTI (urinary tract infection) Status: Acute (4) CHF (congestive heart failure) Status: Chronic (5) History of B-cell lymphoma Status: Chronic (6) Parkinson disease Status: Chronic - Assessment and Plan (Free Text) Assessment: GRAM-NEGATIVE SEPSIS- SOURCE /CRBSI ?JAYME CATH VS INTRABDOMINAL SOURCE RESPIRATORY FAILURE / PNEUMONIA CHF WITH RIGHT-SIDED LARGE EFFUSION S/P THORACENTESIS 01/21/17 FAILURE TO THRIVE/ANOREXIA S/P PEG 01/01/17 LEUKOPENIA ? IMMUNE VS DRUGS ? ABX. THROMBOCYTOPENIA /SEPSIS VS DRUGS VS COAGULOPATHY. S/P GRAM-NEGATIVE SEPSIS +VE ESBL +VE E. COLI . HISTORY OF B CELL- LYMPHOMA ( IN REMISSION ) PARKINSONISM. EXIT SITE GT INFECTION+VE ENTEROBACTER-CLOACAE/YEAST Plan BLOOD CULTURE- +VE GNR ? SOURCE CATHETER RELATED SEPSIS/PORT-A-CATH VS INTRA- ABDOMINAL(ASCITES ) ON IV COLISTIN 150MG IVPB Q 12HRLY .INFUSER OVER 90 MIN .01/20/17 ON IV AVYCAZ 1.25MG IVPB Q 8HRLY FOR SYNERGY.AND MDR ENTEROBACTER AEROGENES. LAB MICRO-TO CHECK FOR SENSITIVITY OF ENTEROBACTER CLOACA /GNR IN BLOOD WITH AVYCAZ/COLISTIN. SPOKTE TO RN RIBBON BLOCKMAKER MS MONROYLAYA SANCHEZONE LOCALLY TO EXT SITE BID FEEDINGS ON HOLD PER GI. REPEAT BLOOD CULTURES FROM pORT-a-cATH 2 SETS STAT. PROGNOSIS GUARDED.
--- NOTE | 2017-01-21 15:15 | CP.PCM.PN ---
Subjective - Date & Time of Evaluation Date of Evaluation: 01/21/17 Time of Evaluation: 03:10 - Subjective Subjective: Post thoracentesis where 650 cc of fluid was taken out. Patient tolerated the procedure very well. Still confused Tube feeding on hold due to the infection at the PEG site which showed E. Cloacae and yeast resistant to all anotibiotics except Tygasil. Patient was given Ceftazidine and colisthetate sosdium priya IV freddie 12 hours. Family now consenting to have the PEG replaced. Objective - Vital Signs/Intake and Output Vital Signs (last 24 hours): Temp Pulse Resp BP Pulse Ox 97.5 F L 120 H 20 90/57 L 100 01/21/17 08:30 01/21/17 09:06 01/21/17 09:06 01/21/17 09:06 01/21/17 08:30 - Medications Medications: Current Medications Bacitracin (Bacitracin) 1 gm TOP BID [facility] Last Admin: 01/21/17 10:47 Dose: 1 applic Clotrimazole (Lotrimin 1%) 0.5 gm TOP BID [facility] Last Admin: 01/21/17 10:45 Dose: 1 applic Emollient Ointment (Vaseline Oint) 5 gm TOP TID [facility] Last Admin: 01/21/17 13:18 Dose: 5 gm Dextrose/Sodium Chloride (Dextrose 5%/0.45% Ns 1000 Ml) 1,000 mls @ 45 mls/hr IV .[id number] [facility] Last Admin: 01/21/17 12:09 Dose: Not Given Colistimethate Sodium 150 mg/ (Sodium Chloride) 100 mls @ 200 mls/hr IV Q12H [facility] Last Admin: 01/21/17 09:02 Dose: 200 mls/hr Ceftazidime/Avibactam 1.25 gm/ (Sodium Chloride) 100 mls @ 50 mls/hr IV Q8H [facility] Last Admin: 01/21/17 12:13 Dose: 50 mls/hr Metoprolol Tartrate (Lopressor) 12.5 mg PO BID [facility] Last Admin: 01/21/17 10:43 Dose: Not Given Pantoprazole Sodium (Protonix Susp) 40 mg GT DAILY [facility] Last Admin: 01/21/17 12:14 Dose: 40 mg Polyethylene Glycol (Miralax) 17 gm PO HS [facility] Last Admin: 01/20/17 22:00 Dose: Not Given Spironolactone (Aldactone) 25 mg PO DAILY [facility] Last Admin: 01/21/17 10:43 Dose: Not Given - Labs Labs: 01/20/17 07:54 01/21/17 07:11 PT 17.3 SECONDS (9.7-12.2) H 01/20/17 07:54 INR 1.5 01/20/17 07:54 APTT 31 SECONDS (21-34) 01/18/17 08:50 - Constitutional Appears: Confused, Chronically Ill - Head Exam Head Exam: ATRAUMATIC, NORMAL INSPECTION, NORMOCEPHALIC - ENT Exam ENT Exam: Mucous Membranes Dry - Respiratory Exam Respiratory Exam: Clear to Ausculation Bilateral Additional comments: On BI Pap with 100 % oxygen. - Cardiovascular Exam Cardiovascular Exam: Tachycardia, REGULAR RHYTHM, +S1, +S2 - GI/Abdominal Exam GI & Abdominal Exam: Soft - Rectal Exam Rectal Exam: Deferred - Skin Skin Exam: Dry, Intact, Warm Assessment and Plan (1) Altered mental status Status: Acute (2) Sepsis Status: Acute (3) UTI (urinary tract infection) Status: Acute (4) History of B-cell lymphoma Status: Chronic (5) Parkinson disease Status: Chronic (6) CHF (congestive heart failure) Status: Chronic (7) Congestive cardiomyopathy Status: Chronic (8) Pleural effusion Status: Acute (9) VRE infection (vancomycin resistant Enterococcus) Status: Acute (10) Infection due to ESBL-producing Escherichia coli Status: Acute (11) Liver enzyme elevation Status: Acute - Assessment and Plan (Free Text) Plan: Plan: Continue IV antibiotics as per Dr. Sridhar Lynn. Continue IV Fluids. Continue Bi Pap. Awaiting patient to talk with DR. Anguiano to sign consent for the PEG replacement Prognosis NIL. STATUS: Acute.
[2017-01-21] MEDS: POLYETHYLENE GLYCOL 3350 17 GM/Dose PACKET PO SCH (21:15)
[2017-01-22 07:28] LABS: BASO % 0.2 % (0.0-2.0); EOS % 0.6 % (0.0-4.0); LYMPH # 0.5 K/uL (1.0-4.3); MONO # 0.1 K/uL (0.0-0.8)
[2017-01-22 07:39] LABS: HEMATOCRIT 30.6 % (34.0-47.0); LYMPH % 16.7 % (20.0-40.0); MEAN CELL VOLUME 100.8 fL (81.0-99.0); MEAN CORPUSCULAR HEMOGLOBIN 33.3 pg (27.0-31.0); MEAN PLATELET VOLUME 11.7 fL (7.2-11.7); MONO % 3.1 % (0.0-10.0); NRBC % 0.2 % (0.0-2.0); RED CELL DISTRIBUTION WIDTH 25.9 % (11.5-14.5); WHITE BLOOD COUNT 2.7 K/uL (4.8-10.8)
[2017-01-22 07:44] LABS: ALKALINE PHOSPHATASE 120 U/L (38-126); ALT/SGPT 51 U/L (9-52); AST/SGOT 31 U/L (14-36); BILIRUBIN,TOTAL 3.3 mg/dL (0.2-1.3); BLOOD UREA NITROGEN 39 mg/dL (7-17); CALCIUM 8.4 mg/dl (8.6-10.4); CARBON DIOXIDE 23 mmol/L (22-30); CHLORIDE 108 mmol/L (98-107); GFR AFRICAN-AMERICAN > 60; GLUCOSE,RANDOM 59 mg/dL (65-105); POTASSIUM 3.7 mmol/L (3.6-5.2); SODIUM 139 mmol/L (132-148); TOTAL PROTEIN 4.3 g/dL (6.3-8.3)
[2017-01-22 07:47] LABS: ALB/GLOB RATIO 1.3 (1.0-2.1); BILIRUBIN,DIRECT 2.6 mg/dL (0.0-0.4)
[2017-01-22] MEDS: Petrolatum Oint Foilpak (5 gm) TOP SCH ×2 (10:09→13:55)
[2017-01-22] MEDS: Clotrimazole 1% Cream(30 gm) TOP SCH ×2 (10:09→17:45)
[2017-01-22] MEDS: Pantoprazole 40 mg Susp UD GT SCH (10:09)
[2017-01-22] MEDS: Bacitracin Ointment 30 GM TUBE TOP SCH ×2 (10:10→17:45)
[2017-01-22] MEDS: Dextrose 5%/0.45% NS 1,000 ML IV SCH ×2 (11:14→22:17)
--- NOTE | 2017-01-22 11:23 | CP.PCM.PN ---
Subjective - Date & Time of Evaluation Date of Evaluation: 01/22/17 Time of Evaluation: 11:20 - Subjective Subjective: Family signed consent for PEG removal and replacement but she clearly is too unstable respiratorily as well as low platelets that would preclude the insertion of a new tube. After discusion with family at bedside we both favor continued observation. Would prefer not just removing current PEG as this would then require a second procedure to insert a new one (second anesthsia event). Will defer at this time unless ID feels tube must be removed. Her breathing appears weak and labored even with CPAP. Objective - Vital Signs/Intake and Output Vital Signs (last 24 hours): Temp Pulse Resp BP Pulse Ox 97.4 F L 98 H 22 82/56 L 95 01/22/17 07:00 01/22/17 10:17 01/22/17 07:00 01/22/17 10:17 01/22/17 07:00 Intake and Output: 01/22/17 01/22/17 06:59 18:59 Intake Total 360 Balance 360 - Medications Medications: Current Medications Bacitracin (Bacitracin) 1 gm TOP BID [facility] Last Admin: 01/22/17 10:10 Dose: 1 applic Clotrimazole (Lotrimin 1%) 0.5 gm TOP BID [facility] Last Admin: 01/22/17 10:09 Dose: 1 applic Emollient Ointment (Vaseline Oint) 5 gm TOP TID [facility] Last Admin: 01/22/17 10:09 Dose: 5 gm Dextrose/Sodium Chloride (Dextrose 5%/0.45% Ns 1000 Ml) 1,000 mls @ 45 mls/hr IV .[id number] [facility] Last Admin: 01/22/17 11:14 Dose: Not Given Colistimethate Sodium 150 mg/ (Sodium Chloride) 100 mls @ 200 mls/hr IV Q12H [facility] Last Admin: 01/22/17 08:09 Dose: 200 mls/hr Ceftazidime/Avibactam 1.25 gm/ (Sodium Chloride) 100 mls @ 50 mls/hr IV Q8H [facility] Last Admin: 01/22/17 05:41 Dose: 50 mls/hr Metoprolol Tartrate (Lopressor) 12.5 mg PO BID [facility] Last Admin: 01/22/17 10:14 Dose: Not Given Pantoprazole Sodium (Protonix Susp) 40 mg GT DAILY [facility] Last Admin: 01/22/17 10:09 Dose: 40 mg Polyethylene Glycol (Miralax) 17 gm PO HS [facility] Last Admin: 01/21/17 21:15 Dose: Not Given Spironolactone (Aldactone) 25 mg PO DAILY [facility] Last Admin: 01/22/17 10:15 Dose: Not Given - Labs Labs: 01/22/17 07:18 01/22/17 07:18 PT 17.3 SECONDS (9.7-12.2) H 01/20/17 07:54 INR 1.5 01/20/17 07:54 APTT 31 SECONDS (21-34) 01/18/17 08:50 - Constitutional Appears: Cachectic, Chronically Ill - Respiratory Exam Respiratory Exam: Decreased Breath Sounds - Cardiovascular Exam Cardiovascular Exam: REGULAR RHYTHM - GI/Abdominal Exam GI & Abdominal Exam: Soft, Normal Bowel Sounds. absent: Tenderness Additional comments: GT dressing and tube intact. Assessment and Plan (1) Malnutrition Status: Chronic (2) Dysphagia Status: Chronic (3) Parkinson disease Status: Chronic (4) Coagulopathy Status: Resolved (5) PEG tube malfunction Status: Resolved (6) Abnormal liver enzymes Status: Acute (7) Drug-induced hepatitis Status: Acute (8) Infection of PEG site Assessment & Plan: Maintain antibiotics per ID Will defer any removal and/or replacement of tube due to the factors discussed earlier in this note. ID follow up Prognosis poor, DNR/DNI. Consents obtained "as needed". Status: Acute
--- NOTE | 2017-01-22 11:34 | CP.PCM.PN ---
Subjective - Date & Time of Evaluation Date of Evaluation: 01/22/17 Time of Evaluation: 11:25 - Subjective Subjective: Afebrile. Patient is in a moribund stage. BP is 82 systolic. Platelet count is 44,00. Blood culture is positve for gram nagative r rods. I discussed with DR. Anguiano regarding the PRG replacement and we both agreed that with a platelet count of 44,000 it would not be feasible at this time, and also she is not stable with regards to her respiratory state. Will lt Dr. Lynn know about the blood culture results . Objective - Vital Signs/Intake and Output Vital Signs (last 24 hours): Temp Pulse Resp BP Pulse Ox 97.4 F L 98 H 22 82/56 L 95 01/22/17 07:00 01/22/17 10:17 01/22/17 07:00 01/22/17 10:17 01/22/17 07:00 Intake and Output: 01/22/17 01/22/17 06:59 18:59 Intake Total 360 Balance 360 - Medications Medications: Current Medications Bacitracin (Bacitracin) 1 gm TOP BID [facility] Last Admin: 01/22/17 10:10 Dose: 1 applic Clotrimazole (Lotrimin 1%) 0.5 gm TOP BID [facility] Last Admin: 01/22/17 10:09 Dose: 1 applic Emollient Ointment (Vaseline Oint) 5 gm TOP TID [facility] Last Admin: 01/22/17 10:09 Dose: 5 gm Dextrose/Sodium Chloride (Dextrose 5%/0.45% Ns 1000 Ml) 1,000 mls @ 45 mls/hr IV .[id number] [facility] Last Admin: 01/22/17 11:14 Dose: Not Given Colistimethate Sodium 150 mg/ (Sodium Chloride) 100 mls @ 200 mls/hr IV Q12H [facility] Last Admin: 01/22/17 08:09 Dose: 200 mls/hr Ceftazidime/Avibactam 1.25 gm/ (Sodium Chloride) 100 mls @ 50 mls/hr IV Q8H [facility] Last Admin: 01/22/17 05:41 Dose: 50 mls/hr Metoprolol Tartrate (Lopressor) 12.5 mg PO BID [facility] Last Admin: 01/22/17 10:14 Dose: Not Given Pantoprazole Sodium (Protonix Susp) 40 mg GT DAILY [facility] Last Admin: 01/22/17 10:09 Dose: 40 mg Polyethylene Glycol (Miralax) 17 gm PO HS [facility] Last Admin: 01/21/17 21:15 Dose: Not Given Spironolactone (Aldactone) 25 mg PO DAILY [facility] Last Admin: 01/22/17 10:15 Dose: Not Given - Labs Labs: 01/22/17 07:18 01/22/17 07:18 PT 17.3 SECONDS (9.7-12.2) H 01/20/17 07:54 INR 1.5 01/20/17 07:54 APTT 31 SECONDS (21-34) 01/18/17 08:50 - Constitutional Appears: Confused - ENT Exam ENT Exam: Mucous Membranes Dry - Respiratory Exam Respiratory Exam: Decreased Breath Sounds - Cardiovascular Exam Cardiovascular Exam: REGULAR RHYTHM, +S1, +S2 - GI/Abdominal Exam GI & Abdominal Exam: Soft Additional comments: Minimal discharge at the PEG site. - Rectal Exam Rectal Exam: Deferred - Back Exam Back Exam: NORMAL INSPECTION - Neurological Exam Neurological Exam: Altered - Skin Skin Exam: Dry, Intact, Warm Assessment and Plan (1) Altered mental status Status: Acute (2) Sepsis Status: Acute (3) UTI (urinary tract infection) Status: Acute (4) History of B-cell lymphoma Status: Chronic (5) Parkinson disease Status: Chronic (6) CHF (congestive heart failure) Status: Chronic (7) Congestive cardiomyopathy Status: Chronic (8) Pleural effusion Status: Acute (9) VRE infection (vancomycin resistant Enterococcus) Status: Acute (10) Infection due to ESBL-producing Escherichia coli Status: Acute (11) Liver enzyme elevation Status: Acute - Assessment and Plan (Free Text) Assessment: Assessment: Prognosis---NIL. [place]--Acute Diagnosis: Urosepsis. VRE-SBLE positive Urine. MDR E. Cloacae, and yeast at PEG site. + Gram negative rods at the PEG site. Thrombocytopenia. Non Ischemic Cardiomyopathy. Congestive heart failure. Parkinsons disease. Diffuse Large cell lymphoma in remission. Plan: Plan: Hold tube feeding. Continue IV fluids Continue Antibiotics as per Dr. Lynn.
--- NOTE | 2017-01-22 13:12 | US ---
PROCEDURE: Date of procedure: 01/21/2017 Procedure: 1. Ultrasound-guided Right thoracentesis, CPT 44433 Medications: 6cc 1% Lidocaine HISTORY: Right pleural effusion, shortness of breath TECHNIQUE: Following informed consent ,the Patients' right chest was marked. Procedure time-out was called, and the patient was placed in the lateral position and limited ultrasound showed a moderate right effusion. The patient's right back was prepped and draped in the usual sterile fashion. After the skin was anesthetized with lidocaine, a drainage catheter was advanced under ultrasound guidance into the pleural space. Ultrasound-guided thoracentesis was performed. A total of 700 cubic centimeters of straw-colored fluid removed without complication. A Xeroform dressing was applied. IMPRESSION: Ultrasound guided Right thoracentesis. There were no immediate complications.
[2017-01-22] MEDS: POLYETHYLENE GLYCOL 3350 17 GM/Dose PACKET PO SCH (21:19)
--- NOTE | 2017-01-22 23:05 | CP.PCM.PN ---
Subjective - Date & Time of Evaluation Date of Evaluation: 01/22/17 Time of Evaluation: 23:05 - Subjective Subjective: AFEBRILE,BP LOW SYSTOLIC 82 ON BIPAP. BLOOD CULTURE1: 2 SETS +VE GNR (FROM JAYME CATH ) PEG SITE +VE ENTEROBACTER CLOACAE s-COLISTIN /AVYCAZ. GI NOTED. PT SEPTIC --SOURCE CATHETHER RELATED BSI BLOOD CULTURE DRAWN FROM JAYME-CATH IS +VE PLATELET COUNT LOW. PT WILL NEED CATHETER TO BE REMOVED SOURCE OF BACTEREMIA(CARBAPENASE RESISTANT ).NIKO. CONTINUE IV COLISTIN 150MG IV Q 12 HRLY. INCREASE IV AVYCAZ TO 2.5GM IVPB Q 8HRLY FOR NOW. CASE DISCUSSED WITH PHARMACIST JESSICA. DISCUSSED WITH DAUGHTER. HOLD OFF PEG INSERTION PER GI AND PMD. WILL DISCUSS WITH DR BANDA. Objective - Vital Signs/Intake and Output Vital Signs (last 24 hours): Temp Pulse Resp BP Pulse Ox 97.5 F L 86 15 83/51 L 100 01/22/17 16:00 01/22/17 22:19 01/22/17 16:00 01/22/17 16:00 01/22/17 20:11 Intake and Output: 01/22/17 01/23/17 18:59 06:59 Intake Total 510 400 Balance 510 400 - Medications Medications: Current Medications Bacitracin (Bacitracin) 1 gm TOP BID [facility] Last Admin: 01/22/17 17:45 Dose: 1 applic Clotrimazole (Lotrimin 1%) 0.5 gm TOP BID [facility] Last Admin: 01/22/17 17:45 Dose: 1 applic Colistimethate Sodium 150 mg/ (Sodium Chloride) 100 mls @ 200 mls/hr IV Q12H [facility] Last Admin: 01/22/17 19:16 Dose: 200 mls/hr Ceftazidime/Avibactam 1.25 gm/ (Sodium Chloride) 100 mls @ 50 mls/hr IV Q8H [facility] Last Admin: 01/22/17 20:00 Dose: 50 mls/hr Dextrose/Sodium Chloride (Dextrose 5%/0.45% Ns 1000 Ml) 1,000 mls @ 45 mls/hr IV .[id number] [facility] Last Admin: 01/22/17 22:17 Dose: 45 mls/hr Metoprolol Tartrate (Lopressor) 12.5 mg PO BID [facility] Last Admin: 01/22/17 17:16 Dose: Not Given Pantoprazole Sodium (Protonix Susp) 40 mg GT DAILY [facility] Last Admin: 01/22/17 10:09 Dose: 40 mg Polyethylene Glycol (Miralax) 17 gm PO HS [facility] Last Admin: 01/22/17 21:19 Dose: Not Given Spironolactone (Aldactone) 25 mg PO DAILY [facility] Last Admin: 01/22/17 10:15 Dose: Not Given - Labs Labs: 01/22/17 07:18 01/22/17 07:18 PT 17.3 SECONDS (9.7-12.2) H 01/20/17 07:54 INR 1.5 01/20/17 07:54 APTT 31 SECONDS (21-34) 01/18/17 08:50 - Constitutional Appears: Confused, Cachectic, Chronically Ill - Head Exam Head Exam: NORMAL INSPECTION - Eye Exam Eye Exam: PERRL, Scleral icterus - ENT Exam ENT Exam: Normal Oropharynx - Respiratory Exam Respiratory Exam: Decreased Breath Sounds, Prolonged Expiratory Phase - Cardiovascular Exam Cardiovascular Exam: Tachycardia, REGULAR RHYTHM, +S1, +S2 - GI/Abdominal Exam GI & Abdominal Exam: Soft, Normal Bowel Sounds (+VE ACITES +VE PEG .) - Extremities Exam Extremities Exam: absent: Calf Tenderness, Pedal Edema - Neurological Exam Neurological Exam: Altered - Psychiatric Exam Psychiatric exam: Flat Affect - Skin Skin Exam: Warm Assessment and Plan (1) Altered mental status Status: Acute (2) Sepsis Status: Acute (3) UTI (urinary tract infection) Status: Acute (4) CHF (congestive heart failure) Status: Chronic (5) History of B-cell lymphoma Status: Chronic (6) Parkinson disease Status: Chronic - Assessment and Plan (Free Text) Assessment: GRAM-NEGATIVE SEPSIS- SOURCE /CRBSI ?JAYME CATH RESPIRATORY FAILURE / PNEUMONIA CHF WITH RIGHT-SIDED LARGE EFFUSION S/P THORACENTESIS 01/21/17 PANCYTOPENIA S/P GRAM-NEGATIVE SEPSIS +VE ESBL +VE E. COLI . HISTORY OF B CELL- LYMPHOMA ( IN REMISSION ) PARKINSONISM. EXIT SITE GT INFECTION+VE ENTEROBACTER-CLOACAE/YEAST Plan BLOOD CULTURE- +VE GNR ? SOURCE CATHETER RELATED SEPSIS/PORT-A-CATH . CONSIDER REMOVAL OF JAYME -CATHETHER NIKO. ON IV COLISTIN 150MG IVPB Q 12HRLY .INFUSER OVER 90 MIN .01/20/17 INCREASE IV AVYCAZ 2.5 GMS IVPB Q 8HRLY FOR SYNERGY.AND MDR ENTEROBACTER AEROGENES.01/21/17 WATCH RENAL FUNCTION. LOTRISONE LOCALLY TO EXT SITE BID FEEDINGS ON HOLD PER GI. REPEAT BLOOD CULTURES FROM pORT-a-cATH 2 SETS STAT.-P 01/21/17 PROGNOSIS GUARDED . DISCUSSED WITH DAUGHTER AT BEDSIDE.
[2017-01-23 07:46] LABS: BASO % 0.4 % (0.0-2.0); HEMATOCRIT 29.8 % (34.0-47.0); LYMPH # 0.4 K/uL (1.0-4.3); LYMPH % 15.8 % (20.0-40.0); MEAN CELL VOLUME 100.9 fL (81.0-99.0); MEAN CORPUSCULAR HEMOGLOBIN 32.8 pg (27.0-31.0); MEAN CORPUSCULAR HGB CONC 32.6 g/dL (33.0-37.0); MEAN PLATELET VOLUME 11.9 fL (7.2-11.7); MONO # 0.1 K/uL (0.0-0.8); MONO % 4.8 % (0.0-10.0); RED CELL DISTRIBUTION WIDTH 25.4 % (11.5-14.5); WHITE BLOOD COUNT 2.7 K/uL (4.8-10.8)
[2017-01-23 08:16] LABS: ALB/GLOB RATIO 1.2 (1.0-2.1); BILIRUBIN,TOTAL 3.1 mg/dL (0.2-1.3); CALCIUM 8.3 mg/dl (8.6-10.4); POTASSIUM 3.4 mmol/L (3.6-5.2); TOTAL PROTEIN 4.2 g/dL (6.3-8.3)
[2017-01-23] MEDS: Bacitracin Ointment 30 GM TUBE TOP SCH ×2 (10:15→17:35)
[2017-01-23] MEDS: Clotrimazole 1% Cream(30 gm) TOP SCH ×2 (10:18→17:35)
[2017-01-23] MEDS: Pantoprazole 40 mg Susp UD GT SCH (10:20)
--- NOTE | 2017-01-23 11:16 | CP.PCM.PN ---
Subjective - Date & Time of Evaluation Date of Evaluation: 01/23/17 Time of Evaluation: 11:10 - Subjective Subjective: Patient is moribund. Awake and moaning. Not in acute distress. Platelet count is now 33,000. K is 3.4. The aunt is discussing with me the need for just making her comfortable.She says when her dughter will come back from [place] that they will just stop eveything and make her comfortable. Objective - Vital Signs/Intake and Output Vital Signs (last 24 hours): Temp Pulse Resp BP Pulse Ox 98.2 F 77 23 81/61 L 91 L 01/23/17 09:09 01/23/17 09:09 01/23/17 09:09 01/23/17 09:09 01/23/17 09:09 Intake and Output: 01/23/17 01/23/17 06:59 18:59 Intake Total 400 140 Output Total 1 Balance 400 139 - Medications Medications: Current Medications Bacitracin (Bacitracin) 1 gm TOP BID [facility] Last Admin: 01/23/17 10:15 Dose: 1 applic Clotrimazole (Lotrimin 1%) 0.5 gm TOP BID [facility] Last Admin: 01/23/17 10:18 Dose: 1 applic Colistimethate Sodium 150 mg/ (Sodium Chloride) 100 mls @ 200 mls/hr IV Q12H [facility] Last Admin: 01/23/17 08:24 Dose: 200 mls/hr Dextrose/Sodium Chloride (Dextrose 5%/0.45% Ns 1000 Ml) 1,000 mls @ 45 mls/hr IV .[id number] [facility] Last Admin: 01/22/17 22:17 Dose: 45 mls/hr Ceftazidime/Avibactam 2.5 gm/ (Sodium Chloride) 100 mls @ 50 mls/hr IV Q8H [facility] Stop: 01/23/17 18:59 Last Admin: 01/23/17 10:15 Dose: 50 mls/hr Metoprolol Tartrate (Lopressor) 12.5 mg PO BID [facility] Last Admin: 01/23/17 10:18 Dose: 12.5 mg Pantoprazole Sodium (Protonix Susp) 40 mg GT DAILY [facility] Last Admin: 01/23/17 10:20 Dose: 40 mg Polyethylene Glycol (Miralax) 17 gm PO HS [facility] Last Admin: 01/22/17 21:19 Dose: Not Given Spironolactone (Aldactone) 25 mg PO DAILY [facility] Last Admin: 01/22/17 10:15 Dose: Not Given - Labs Labs: 01/23/17 07:25 01/23/17 07:25 PT 17.3 SECONDS (9.7-12.2) H 01/20/17 07:54 INR 1.5 01/20/17 07:54 APTT 31 SECONDS (21-34) 01/18/17 08:50 - Constitutional Appears: No Acute Distress, Chronically Ill - ENT Exam ENT Exam: Mucous Membranes Dry - Respiratory Exam Respiratory Exam: Decreased Breath Sounds - Cardiovascular Exam Cardiovascular Exam: Tachycardia, REGULAR RHYTHM, +S1, +S2 - GI/Abdominal Exam GI & Abdominal Exam: Soft - Rectal Exam Rectal Exam: Deferred - Neurological Exam Neurological Exam: Altered Assessment and Plan (1) Altered mental status Status: Acute (2) Sepsis Status: Acute (3) UTI (urinary tract infection) Status: Acute (4) History of B-cell lymphoma Status: Chronic (5) Parkinson disease Status: Chronic (6) CHF (congestive heart failure) Status: Chronic (7) Congestive cardiomyopathy Status: Chronic (8) Pleural effusion Status: Acute (9) VRE infection (vancomycin resistant Enterococcus) Status: Acute (10) Infection due to ESBL-producing Escherichia coli Status: Acute (11) Liver enzyme elevation Status: Acute - Assessment and Plan (Free Text) Assessment: Assessment: Status-Acute Prognosis--Nil Diagnosis: Bacteremia Urosepsis. VRE-SBLE posive in Urine. Non ischemic cardiomyopathy. CHF Pleural Effusion. Thrombocytopenia.Leaking PEG Inefected PEGsite.
--- NOTE | 2017-01-23 12:31 | CP.PCM.PN ---
Subjective - Date & Time of Evaluation Date of Evaluation: 01/23/17 Time of Evaluation: 12:28 - Subjective Subjective: Events noted and case discussed with Dr Hawkins yesterday. More lethargic today. Pleural fluid studies show elevated WBCs as well. Appears family is pointing in direction of comfort care only and withdrawal of aggressive therapies. Objective - Vital Signs/Intake and Output Vital Signs (last 24 hours): Temp Pulse Resp BP Pulse Ox 98.2 F 77 23 81/61 L 91 L 01/23/17 09:09 01/23/17 09:09 01/23/17 09:09 01/23/17 09:09 01/23/17 09:09 Intake and Output: 01/23/17 01/23/17 06:59 18:59 Intake Total 400 140 Output Total 1 Balance 400 139 - Medications Medications: Current Medications Bacitracin (Bacitracin) 1 gm TOP BID [facility] Last Admin: 01/23/17 10:15 Dose: 1 applic Clotrimazole (Lotrimin 1%) 0.5 gm TOP BID [facility] Last Admin: 01/23/17 10:18 Dose: 1 applic Colistimethate Sodium 150 mg/ (Sodium Chloride) 100 mls @ 200 mls/hr IV Q12H [facility] Last Admin: 01/23/17 08:24 Dose: 200 mls/hr Dextrose/Sodium Chloride (Dextrose 5%/0.45% Ns 1000 Ml) 1,000 mls @ 45 mls/hr IV .[id number] [facility] Last Admin: 01/22/17 22:17 Dose: 45 mls/hr Ceftazidime/Avibactam 2.5 gm/ (Sodium Chloride) 100 mls @ 50 mls/hr IV Q8H [facility] Stop: 01/23/17 18:59 Last Admin: 01/23/17 10:15 Dose: 50 mls/hr Potassium Chloride (Potassium Chloride 20 Meq/100 Ml) 20 meq in 100 mls @ 50 mls/hr IVPB ONCE ONE Stop: 01/23/17 13:59 Last Admin: 01/23/17 11:48 Dose: 50 mls/hr Metoprolol Tartrate (Lopressor) 12.5 mg PO BID [facility] Last Admin: 01/23/17 10:18 Dose: 12.5 mg Pantoprazole Sodium (Protonix Susp) 40 mg GT DAILY [facility] Last Admin: 01/23/17 10:20 Dose: 40 mg Polyethylene Glycol (Miralax) 17 gm PO HS [facility] Last Admin: 01/22/17 21:19 Dose: Not Given Spironolactone (Aldactone) 25 mg PO DAILY [facility] Last Admin: 01/23/17 11:47 Dose: 25 mg - Labs Labs: 01/23/17 07:25 01/23/17 07:25 PT 17.3 SECONDS (9.7-12.2) H 01/20/17 07:54 INR 1.5 01/20/17 07:54 APTT 31 SECONDS (21-34) 01/18/17 08:50 - Constitutional Appears: Cachectic, Chronically Ill - Respiratory Exam Respiratory Exam: Decreased Breath Sounds - Cardiovascular Exam Cardiovascular Exam: REGULAR RHYTHM - GI/Abdominal Exam GI & Abdominal Exam: Soft, Hypoactive Bowel Sounds. absent: Tenderness Additional comments: GT intact with some yellowish discharge noted around fistula. - Extremities Exam Extremities Exam: absent: Pedal Edema Assessment and Plan (1) Malnutrition Status: Chronic (2) Dysphagia Status: Chronic (3) Parkinson disease Status: Chronic (4) Coagulopathy Assessment & Plan: Worsening platelet count to 33,000 likely due to sepsis Status: Resolved (5) PEG tube malfunction Status: Resolved (6) Abnormal liver enzymes Assessment & Plan: Enzymes and Biliribin much improved and continue to resolve off offending meds. Status: Acute (7) Drug-induced hepatitis Assessment & Plan: continues to resolve off meds. Status: Acute (8) Infection of PEG site Assessment & Plan: Peg infection treated per ID but organisms multidrug resistent. Palliative/comfort care per family requests. Too unstable for replacement of PEG tube at this time due to bleeding risks and respiratory compromise for sedation. DNR/DNI Prognosis-grave Status: Acute
--- NOTE | 2017-01-23 13:39 | CP.PCM.PN ---
Subjective - Date & Time of Evaluation Date of Evaluation: 01/23/17 Time of Evaluation: 13:39 - Subjective Subjective: AFEBRILE, POORLY RESPONSIVE,OBTUNDED ON VENTIMASK. BLOOD CULTURE 01/20/17 1;2 SETS +VE SPHINGOMONAS-PAUCIMOBLIS S -MULTIPLE ANTIBIOTICS INCLUDING COLISTIN, CEFTRIAXONE, IMIPENEM. REPEAT BLOOD CULTURES NEGATIVE FOR 24 HOURS. PLATELET COUNT DECREASING CASE DISCUSSED WITH PMD. FAMILY CONSIDERING LESS AGGRESSIVE MEASURES AND MORE COMFORT CARE. WILL CONTINUE iv ANTIBIOTICS AND OBSERVE . HOLD OFF pORT-a-cATH FOR NOW PATIENT HAS THROMBOCYTOPENIA AND RISK OF BLEEDING. Objective - Vital Signs/Intake and Output Vital Signs (last 24 hours): Temp Pulse Resp BP Pulse Ox 98.2 F 77 23 81/61 L 91 L 01/23/17 09:09 01/23/17 09:09 01/23/17 09:09 01/23/17 09:09 01/23/17 09:09 Intake and Output: 01/23/17 01/23/17 06:59 18:59 Intake Total 400 140 Output Total 1 Balance 400 139 - Medications Medications: Current Medications Bacitracin (Bacitracin) 1 gm TOP BID [facility] Last Admin: 01/23/17 10:15 Dose: 1 applic Clotrimazole (Lotrimin 1%) 0.5 gm TOP BID [facility] Last Admin: 01/23/17 10:18 Dose: 1 applic Colistimethate Sodium 150 mg/ (Sodium Chloride) 100 mls @ 200 mls/hr IV Q12H [facility] Last Admin: 01/23/17 08:24 Dose: 200 mls/hr Dextrose/Sodium Chloride (Dextrose 5%/0.45% Ns 1000 Ml) 1,000 mls @ 45 mls/hr IV .[id number] [facility] Last Admin: 01/22/17 22:17 Dose: 45 mls/hr Ceftazidime/Avibactam 2.5 gm/ (Sodium Chloride) 100 mls @ 50 mls/hr IV Q8H [facility] Stop: 01/23/17 18:59 Last Admin: 01/23/17 10:15 Dose: 50 mls/hr Potassium Chloride (Potassium Chloride 20 Meq/100 Ml) 20 meq in 100 mls @ 50 mls/hr IVPB ONCE ONE Stop: 01/23/17 13:59 Last Admin: 01/23/17 11:48 Dose: 50 mls/hr Metoprolol Tartrate (Lopressor) 12.5 mg PO BID [facility] Last Admin: 01/23/17 10:18 Dose: 12.5 mg Pantoprazole Sodium (Protonix Susp) 40 mg GT DAILY [facility] Last Admin: 01/23/17 10:20 Dose: 40 mg Polyethylene Glycol (Miralax) 17 gm PO HS [facility] Last Admin: 01/22/17 21:19 Dose: Not Given Spironolactone (Aldactone) 25 mg PO DAILY [facility] Last Admin: 01/23/17 11:47 Dose: 25 mg - Labs Labs: 01/23/17 07:25 01/23/17 07:25 PT 17.3 SECONDS (9.7-12.2) H 01/20/17 07:54 INR 1.5 01/20/17 07:54 APTT 31 SECONDS (21-34) 01/18/17 08:50 - Constitutional Appears: No Acute Distress, Cachectic, Chronically Ill - Head Exam Head Exam: NORMAL INSPECTION - Eye Exam Eye Exam: PERRL - ENT Exam ENT Exam: Mucous Membranes Dry - Neck Exam Neck Exam: Normal Inspection - Respiratory Exam Respiratory Exam: Decreased Breath Sounds - Cardiovascular Exam Cardiovascular Exam: REGULAR RHYTHM, +S1, +S2 - GI/Abdominal Exam GI & Abdominal Exam: Soft, Hypoactive Bowel Sounds - Extremities Exam Extremities Exam: Pedal Edema. absent: Calf Tenderness - Neurological Exam Neurological Exam: Altered - Skin Skin Exam: Warm Assessment and Plan (1) Altered mental status Status: Acute (2) Sepsis Status: Acute (3) UTI (urinary tract infection) Status: Acute (4) CHF (congestive heart failure) Status: Chronic (5) History of B-cell lymphoma Status: Chronic (6) Parkinson disease Status: Chronic - Assessment and Plan (Free Text) Assessment: GRAM-NEGATIVE SEPSIS- SOURCE /CRBSI ?JAYME CATH RESPIRATORY FAILURE / PNEUMONIA CHF WITH RIGHT-SIDED LARGE EFFUSION S/P THORACENTESIS 01/21/17 PANCYTOPENIA S/P GRAM-NEGATIVE SEPSIS +VE ESBL +VE E. COLI . HISTORY OF B CELL- LYMPHOMA ( IN REMISSION ) PARKINSONISM. EXIT SITE GT INFECTION+VE ENTEROBACTER-CLOACAE/YEAST Plan BLOOD CULTURE- +VE GNR ? SOURCE CATHETER RELATED SEPSIS/PORT-A-CATH . REPEAT BLOOD CULTURES -2 OUT OF 2 SETS. HoLD OF pORT-a-cATH REMOVAL IN VIEW OF THROMBOCYTOPENIA AND REPEAT CULTURES BEING NEGATIVE . WILL GIVE A TRIAL OF iv ANTIBIOTICS ON IV COLISTIN 150MG IVPB Q 12HRLY .INFUSER OVER 90 MIN .01/20/17 DECREASE IV AVYCAZ 1.25 GMS IVPB Q 8HRLY FOR SYNERGY.01/21/17 WATCH RENAL FUNCTION. LOTRISONE LOCALLY TO EXT SITE BID DISCUSSED WITH PMD , PATIENT'S FAMILY CONSIDERING COMFORT CARE. WILL DISCUSS WITH DAUGHTER.
[2017-01-23] MEDS: Dextrose 5%/0.45% NS 1,000 ML IV SCH (20:19)
[2017-01-23] MEDS: POLYETHYLENE GLYCOL 3350 17 GM/Dose PACKET PO SCH (21:04)
[2017-01-24 06:43] LABS: BASO % 0.3 % (0.0-2.0); EOS % 0.9 % (0.0-4.0); HEMATOCRIT 29.9 % (34.0-47.0); LYMPH # 0.4 K/uL (1.0-4.3); LYMPH % 10.4 % (20.0-40.0); MEAN CELL VOLUME 100.3 fL (81.0-99.0); MEAN CORPUSCULAR HGB CONC 32.9 g/dL (33.0-37.0); MEAN PLATELET VOLUME 12.2 fL (7.2-11.7); MONO # 0.2 K/uL (0.0-0.8); MONO % 5.9 % (0.0-10.0); NRBC % 0.3 % (0.0-2.0)
[2017-01-24 07:04] LABS: CALCIUM 8.4 mg/dl (8.6-10.4); POTASSIUM 3.5 mmol/L (3.6-5.2); TOTAL PROTEIN 4.6 g/dL (6.3-8.3)
[2017-01-24 07:07] LABS: ALB/GLOB RATIO 0.8 (1.0-2.1)
[2017-01-24] MEDS: Pantoprazole 40 mg Susp UD GT SCH (10:25)
[2017-01-24] MEDS: Clotrimazole 1% Cream(30 gm) TOP SCH ×2 (10:30→17:16)
[2017-01-24] MEDS: Bacitracin Ointment 30 GM TUBE TOP SCH ×2 (10:30→17:16)
--- NOTE | 2017-01-24 11:01 | CP.PCM.PN ---
Subjective - Date & Time of Evaluation Date of Evaluation: 01/24/17 Time of Evaluation: 10:55 - Subjective Subjective: Lethargic more so today. Patient in grave situation. Platelet count today is 39.000. BUN nd Crea are rising. On IV antibiotics for the positive blood cultures. Objective - Vital Signs/Intake and Output Vital Signs (last 24 hours): Temp Pulse Resp BP Pulse Ox 97.8 F 98 H 23 117/53 L 100 01/24/17 08:00 01/24/17 10:31 01/24/17 08:00 01/24/17 10:31 01/24/17 10:31 Intake and Output: 01/24/17 01/24/17 06:59 18:59 Intake Total 780 Balance 780 - Medications Medications: Current Medications Bacitracin (Bacitracin) 1 gm TOP BID [facility] Last Admin: 01/24/17 10:30 Dose: 1 applic Clotrimazole (Lotrimin 1%) 0.5 gm TOP BID [facility] Last Admin: 01/24/17 10:30 Dose: 1 applic Colistimethate Sodium 150 mg/ (Sodium Chloride) 100 mls @ 200 mls/hr IV Q12H [facility] Last Admin: 01/24/17 08:24 Dose: 200 mls/hr Dextrose/Sodium Chloride (Dextrose 5%/0.45% Ns 1000 Ml) 1,000 mls @ 45 mls/hr IV .[id number] [facility] Last Admin: 01/23/17 20:19 Dose: 45 mls/hr Ceftazidime/Avibactam 1.25 gm/ (Sodium Chloride) 100 mls @ 50 mls/hr IV Q8H [facility] Last Admin: 01/24/17 06:19 Dose: 50 mls/hr Potassium Chloride (Potassium Chloride 20 Meq/100 Ml) 20 meq in 100 mls @ 50 mls/hr IVPB ONCE ONE Stop: 01/24/17 13:59 Metoprolol Tartrate (Lopressor) 12.5 mg PO BID [facility] Last Admin: 01/24/17 10:31 Dose: Not Given Pantoprazole Sodium (Protonix Susp) 40 mg GT DAILY [facility] Last Admin: 01/24/17 10:25 Dose: 40 mg Polyethylene Glycol (Miralax) 17 gm PO HS [facility] Last Admin: 01/23/17 21:04 Dose: Not Given Spironolactone (Aldactone) 25 mg PO DAILY [facility] Last Admin: 01/24/17 10:30 Dose: Not Given - Labs Labs: 01/24/17 06:38 01/24/17 06:38 PT 17.3 SECONDS (9.7-12.2) H 01/20/17 07:54 INR 1.5 01/20/17 07:54 APTT 31 SECONDS (21-34) 01/18/17 08:50 - Constitutional Appears: No Acute Distress, Confused, Chronically Ill - ENT Exam ENT Exam: Mucous Membranes Dry - Respiratory Exam Respiratory Exam: Decreased Breath Sounds - Cardiovascular Exam Cardiovascular Exam: REGULAR RHYTHM, +S1, +S2 - GI/Abdominal Exam GI & Abdominal Exam: Soft - Neurological Exam Neurological Exam: Altered, Awake - Skin Skin Exam: Dry, Warm Assessment and Plan (1) Altered mental status Status: Acute (2) Sepsis Status: Acute (3) UTI (urinary tract infection) Status: Acute (4) History of B-cell lymphoma Status: Chronic (5) Parkinson disease Status: Chronic (6) CHF (congestive heart failure) Status: Chronic (7) Congestive cardiomyopathy Status: Chronic (8) Pleural effusion Status: Acute (9) VRE infection (vancomycin resistant Enterococcus) Status: Acute (10) Infection due to ESBL-producing Escherichia coli Status: Acute (11) Liver enzyme elevation Status: Acute - Assessment and Plan (Free Text) Assessment: Prognosis--Nil. Status -acute. Diagnosis: Bacteremia -positive blood cultures.multidrug resisitant. Congestive heart failure. Thrombocytopenia, anemia. Parkinsons Large cell lymphoma in remission.
--- NOTE | 2017-01-24 11:11 | CP.PCM.PN ---
Subjective - Date & Time of Evaluation Date of Evaluation: 01/24/17 Time of Evaluation: 11:09 - Subjective Subjective: No change in status. Appears to be less responsive Objective - Vital Signs/Intake and Output Vital Signs (last 24 hours): Temp Pulse Resp BP Pulse Ox 97.8 F 98 H 23 117/53 L 100 01/24/17 08:00 01/24/17 10:31 01/24/17 08:00 01/24/17 10:31 01/24/17 10:31 Intake and Output: 01/24/17 01/24/17 06:59 18:59 Intake Total 780 Balance 780 - Medications Medications: Current Medications Bacitracin (Bacitracin) 1 gm TOP BID [facility] Last Admin: 01/24/17 10:30 Dose: 1 applic Clotrimazole (Lotrimin 1%) 0.5 gm TOP BID [facility] Last Admin: 01/24/17 10:30 Dose: 1 applic Colistimethate Sodium 150 mg/ (Sodium Chloride) 100 mls @ 200 mls/hr IV Q12H [facility] Last Admin: 01/24/17 08:24 Dose: 200 mls/hr Dextrose/Sodium Chloride (Dextrose 5%/0.45% Ns 1000 Ml) 1,000 mls @ 45 mls/hr IV .[id number] [facility] Last Admin: 01/23/17 20:19 Dose: 45 mls/hr Ceftazidime/Avibactam 1.25 gm/ (Sodium Chloride) 100 mls @ 50 mls/hr IV Q8H [facility] Last Admin: 01/24/17 06:19 Dose: 50 mls/hr Potassium Chloride (Potassium Chloride 20 Meq/100 Ml) 20 meq in 100 mls @ 50 mls/hr IVPB ONCE ONE Stop: 01/24/17 13:59 Metoprolol Tartrate (Lopressor) 12.5 mg PO BID [facility] Last Admin: 01/24/17 10:31 Dose: Not Given Pantoprazole Sodium (Protonix Susp) 40 mg GT DAILY [facility] Last Admin: 01/24/17 10:25 Dose: 40 mg Polyethylene Glycol (Miralax) 17 gm PO HS [facility] Last Admin: 01/23/17 21:04 Dose: Not Given Spironolactone (Aldactone) 25 mg PO DAILY [facility] Last Admin: 01/24/17 10:30 Dose: Not Given - Labs Labs: 01/24/17 06:38 01/24/17 06:38 PT 17.3 SECONDS (9.7-12.2) H 01/20/17 07:54 INR 1.5 01/20/17 07:54 APTT 31 SECONDS (21-34) 01/18/17 08:50 - Constitutional Appears: Cachectic, Chronically Ill - Respiratory Exam Respiratory Exam: Decreased Breath Sounds - Cardiovascular Exam Cardiovascular Exam: REGULAR RHYTHM - GI/Abdominal Exam GI & Abdominal Exam: Soft, Normal Bowel Sounds. absent: Tenderness Additional comments: GT unchanged with some drainage from site that is yellow/white. - Extremities Exam Extremities Exam: Normal Inspection Assessment and Plan (1) Malnutrition Status: Chronic (2) Dysphagia Status: Chronic (3) Parkinson disease Status: Chronic (4) Coagulopathy Status: Resolved (5) PEG tube malfunction Status: Resolved (6) Abnormal liver enzymes Status: Acute (7) Drug-induced hepatitis Assessment & Plan: Clinically stable Status: Acute (8) Infection of PEG site Assessment & Plan: Continue supportive care Patient appears to be in grave condition Recall as needed, will sign off at this time. Thank you. Status: Acute
--- NOTE | 2017-01-24 13:28 | RAD ---
PROCEDURE: CHEST RADIOGRAPH, 1 VIEW HISTORY: follow pleural tap COMPARISON: 01/17/2017 FINDINGS: LUNGS: No definite infiltrate. Opacity at right lung base may reflect dependent pleural fluid. PLEURA: Small right pleural effusion. No pneumothorax. No left pleural effusion appreciated. CARDIOVASCULAR: Evaluation limited by steep oblique positioning of the patient. No gross cardiomegaly. Right central venous infusion port. OSSEOUS STRUCTURES: No significant abnormalities. VISUALIZED UPPER ABDOMEN: Normal. OTHER FINDINGS: None. IMPRESSION: Small right pleural effusion. No pneumothorax. Limited examination. Opacity at right lung base may reflect dependent pleural fluid.
--- NOTE | 2017-01-24 16:33 | CP.PCM.PN ---
Subjective - Date & Time of Evaluation Date of Evaluation: 01/24/17 Time of Evaluation: 16:33 - Subjective Subjective: AFEBRILE, STUPOROUS, OFF BIPAP. GT unchanged with some drainage from site that is yellow/white LABS REVIEWED. PLEURAL FLUID -VE FUNGAL ELEMENTS. REPEAT BLOOD CULTURES 01/21/17 2:2 SETS -VE GROWTH. INCREASING THROMBOCYTOPENIA NOTED ?SEPSIS VS COLISTIN DC IV COLISTIN. CONTINUE IV AVYCAZ 1.25 GRAMS EVERY 8 HOURLY FOR NOW. CASE DISCUSSED WITH ATTENDING. Objective - Vital Signs/Intake and Output Vital Signs (last 24 hours): Temp Pulse Resp BP Pulse Ox 97.8 F 118 H 20 90/58 L 96 01/24/17 15:19 01/24/17 16:27 01/24/17 15:19 01/24/17 15:19 01/24/17 15:19 Intake and Output: 01/24/17 01/24/17 06:59 18:59 Intake Total 780 460 Balance 780 460 - Medications Medications: Current Medications Bacitracin (Bacitracin) 1 gm TOP BID [facility] Last Admin: 01/24/17 10:30 Dose: 1 applic Clotrimazole (Lotrimin 1%) 0.5 gm TOP BID [facility] Last Admin: 01/24/17 10:30 Dose: 1 applic Colistimethate Sodium 150 mg/ (Sodium Chloride) 100 mls @ 200 mls/hr IV Q12H [facility] Last Admin: 01/24/17 08:24 Dose: 200 mls/hr Dextrose/Sodium Chloride (Dextrose 5%/0.45% Ns 1000 Ml) 1,000 mls @ 45 mls/hr IV .[id number] [facility] Last Admin: 01/23/17 20:19 Dose: 45 mls/hr Ceftazidime/Avibactam 1.25 gm/ (Sodium Chloride) 100 mls @ 50 mls/hr IV Q8H [facility] Last Admin: 01/24/17 14:15 Dose: 50 mls/hr Metoprolol Tartrate (Lopressor) 12.5 mg PO BID [facility] Last Admin: 01/24/17 10:31 Dose: Not Given Pantoprazole Sodium (Protonix Susp) 40 mg GT DAILY [facility] Last Admin: 01/24/17 10:25 Dose: 40 mg Polyethylene Glycol (Miralax) 17 gm PO HS [facility] Last Admin: 01/23/17 21:04 Dose: Not Given Spironolactone (Aldactone) 25 mg PO DAILY [facility] Last Admin: 01/24/17 10:30 Dose: Not Given - Labs Labs: 01/24/17 06:38 01/24/17 06:38 PT 17.3 SECONDS (9.7-12.2) H 01/20/17 07:54 INR 1.5 01/20/17 07:54 APTT 31 SECONDS (21-34) 01/18/17 08:50 - Constitutional Appears: Cachectic, Chronically Ill - Eye Exam Eye Exam: PERRL - ENT Exam ENT Exam: Mucous Membranes Dry - Respiratory Exam Respiratory Exam: Decreased Breath Sounds (BASES) - Cardiovascular Exam Cardiovascular Exam: REGULAR RHYTHM, +S1, +S2 - GI/Abdominal Exam GI & Abdominal Exam: Soft, Hypoactive Bowel Sounds (PEG IN PLACE.GT unchanged with some drainage from site that is yellow/white) - Extremities Exam Extremities Exam: Pedal Edema. absent: Calf Tenderness - Neurological Exam Neurological Exam: Altered - Skin Skin Exam: Warm Assessment and Plan (1) Altered mental status Status: Acute (2) Sepsis Status: Acute (3) UTI (urinary tract infection) Status: Acute (4) CHF (congestive heart failure) Status: Chronic (5) History of B-cell lymphoma Status: Chronic (6) Parkinson disease Status: Chronic - Assessment and Plan (Free Text) Plan: GRAM-NEGATIVE SEPSIS- SOURCE /CRBSI ?JAYME CATH RESPIRATORY FAILURE / PNEUMONIA CHF WITH RIGHT-SIDED LARGE EFFUSION S/P THORACENTESIS 01/21/17 PANCYTOPENIA S/P GRAM-NEGATIVE SEPSIS +VE ESBL +VE E. COLI . HISTORY OF B CELL- LYMPHOMA ( IN REMISSION ) PARKINSONISM. EXIT SITE GT INFECTION+VE ENTEROBACTER-CLOACAE/YEAST Plan BLOOD CULTURE- +VE GNR ? SOURCE CATHETER RELATED SEPSIS/PORT-A-CATH . REPEAT BLOOD CULTURES -2 OUT OF 2 SETS -VE X48HRS HoLD OF pORT-a-cATH REMOVAL IN VIEW OF THROMBOCYTOPENIA AND REPEAT CULTURES BEING NEGATIVE . WILL GIVE A TRIAL OF iv ANTIBIOTICS DC IV COLISTIN 150MG IVPB Q 12HRLY .INFUSER OVER 90 MIN .01/20/17 ON IV AVYCAZ 1.25 GMS IVPB Q 8HRLY FOR SYNERGY.01/21/17 WATCH RENAL FUNCTION. LOTRISONE LOCALLY TO EXT SITE BID PROGNOSIS GUARDED.
--- NOTE | 2017-01-24 17:31 | CP.PCM.PN ---
Subjective - Date & Time of Evaluation Date of Evaluation: 01/24/17 Time of Evaluation: 10:00 - Subjective Subjective: the patient seen and examined Patient is off BiPAP Confused In mild respiratory distress Status post thoracentesis Objective - Vital Signs/Intake and Output Vital Signs (last 24 hours): Temp Pulse Resp BP Pulse Ox 97.8 F 118 H 20 90/60 L 96 01/24/17 15:19 01/24/17 16:27 01/24/17 15:19 01/24/17 15:19 01/24/17 15:19 Intake and Output: 01/24/17 01/24/17 06:59 18:59 Intake Total 780 460 Balance 780 460 - Medications Medications: Current Medications Bacitracin (Bacitracin) 1 gm TOP BID [facility] Last Admin: 01/24/17 17:16 Dose: 1 applic Clotrimazole (Lotrimin 1%) 0.5 gm TOP BID [facility] Last Admin: 01/24/17 17:16 Dose: 1 applic Colistimethate Sodium 150 mg/ (Sodium Chloride) 100 mls @ 200 mls/hr IV Q12H [facility] Last Admin: 01/24/17 08:24 Dose: 200 mls/hr Dextrose/Sodium Chloride (Dextrose 5%/0.45% Ns 1000 Ml) 1,000 mls @ 45 mls/hr IV .[id number] [facility] Last Admin: 01/23/17 20:19 Dose: 45 mls/hr Ceftazidime/Avibactam 1.25 gm/ (Sodium Chloride) 100 mls @ 50 mls/hr IV Q8H [facility] Last Admin: 01/24/17 14:15 Dose: 50 mls/hr Metoprolol Tartrate (Lopressor) 12.5 mg PO BID [facility] Last Admin: 01/24/17 17:16 Dose: Not Given Pantoprazole Sodium (Protonix Susp) 40 mg GT DAILY [facility] Last Admin: 01/24/17 10:25 Dose: 40 mg Polyethylene Glycol (Miralax) 17 gm PO HS [facility] Last Admin: 01/23/17 21:04 Dose: Not Given Spironolactone (Aldactone) 25 mg PO DAILY [facility] Last Admin: 01/24/17 10:30 Dose: Not Given - Labs Labs: 01/24/17 06:38 01/24/17 06:38 PT 17.3 SECONDS (9.7-12.2) H 01/20/17 07:54 INR 1.5 01/20/17 07:54 APTT 31 SECONDS (21-34) 01/18/17 08:50 - Head Exam Head Exam: ATRAUMATIC, NORMOCEPHALIC - ENT Exam ENT Exam: Mucous Membranes Moist - Neck Exam Neck Exam: Normal Inspection - Respiratory Exam Respiratory Exam: Decreased Breath Sounds - Cardiovascular Exam Cardiovascular Exam: REGULAR RHYTHM - GI/Abdominal Exam GI & Abdominal Exam: Soft, Normal Bowel Sounds Assessment and Plan (1) Pleural effusion Assessment & Plan: status post thoracentesis with the reaccumulation of fluid prognosis poor BiPAP as needed Status: Acute (2) Sepsis Status: Acute (3) Parkinson disease Status: Chronic (4) Congestive cardiomyopathy Status: Chronic (5) History of B-cell lymphoma Status: Chronic
[2017-01-24] MEDS: Dextrose 5%/0.45% NS 1,000 ML IV SCH ×2 (19:24→22:27)
[2017-01-24] MEDS: POLYETHYLENE GLYCOL 3350 17 GM/Dose PACKET PO SCH (21:25)
[2017-01-25 07:53] LABS: ALB/GLOB RATIO 1.1 (1.0-2.1); BILIRUBIN,TOTAL 3.2 mg/dL (0.2-1.3); CALCIUM 8.4 mg/dl (8.6-10.4); POTASSIUM 3.3 mmol/L (3.6-5.2); TOTAL PROTEIN 3.9 g/dL (6.3-8.3)
[2017-01-25 07:56] LABS: BASO % 0.4 % (0.0-2.0); EOS # 0.1 K/uL (0.0-0.7); EOS % 1.1 % (0.0-4.0); HEMATOCRIT 28.6 % (34.0-47.0); LYMPH # 0.6 K/uL (1.0-4.3); LYMPH % 10.8 % (20.0-40.0); MEAN CELL VOLUME 100.5 fL (81.0-99.0); MEAN CORPUSCULAR HEMOGLOBIN 32.7 pg (27.0-31.0); MEAN CORPUSCULAR HGB CONC 32.5 g/dL (33.0-37.0); MEAN PLATELET VOLUME 10.7 fL (7.2-11.7); MONO # 0.5 K/uL (0.0-0.8); MONO % 10.1 % (0.0-10.0); NRBC % 0.1 % (0.0-2.0); RED CELL DISTRIBUTION WIDTH 26.2 % (11.5-14.5); WHITE BLOOD COUNT 5.3 K/uL (4.8-10.8)
[2017-01-25] MEDS: Pantoprazole 40 mg Susp UD GT SCH (09:30)
[2017-01-25] MEDS: Clotrimazole 1% Cream(30 gm) TOP SCH ×2 (09:30→17:44)
[2017-01-25] MEDS: Bacitracin Ointment 30 GM TUBE TOP SCH ×2 (09:30→17:44)
--- NOTE | 2017-01-25 11:23 | CP.PCM.PN ---
Subjective - Date & Time of Evaluation Date of Evaluation: 01/25/17 Time of Evaluation: 11:20 - Subjective Subjective: patient is very lethargic today. Afebrile. Platelet cpount is 16,000. BUN and crea are more elevated today. Objective - Vital Signs/Intake and Output Vital Signs (last 24 hours): Temp Pulse Resp BP Pulse Ox 97.6 F 79 20 116/76 93 L 01/25/17 07:09 01/25/17 07:09 01/25/17 07:09 01/25/17 07:09 01/25/17 07:09 Intake and Output: 01/25/17 01/25/17 06:59 18:59 Intake Total 387 Balance 387 - Medications Medications: Current Medications Bacitracin (Bacitracin) 1 gm TOP BID [facility] Last Admin: 01/25/17 09:30 Dose: 1 applic Clotrimazole (Lotrimin 1%) 0.5 gm TOP BID [facility] Last Admin: 01/25/17 09:30 Dose: 1 applic Dextrose/Sodium Chloride (Dextrose 5%/0.45% Ns 1000 Ml) 1,000 mls @ 45 mls/hr IV .[id number] [facility] Last Admin: 01/24/17 22:27 Dose: 45 mls/hr Ceftazidime/Avibactam 1.25 gm/ (Sodium Chloride) 100 mls @ 50 mls/hr IV Q8H [facility] Last Admin: 01/25/17 06:37 Dose: 50 mls/hr Potassium Chloride (Potassium Chloride 20 Meq/100 Ml) 20 meq in 100 mls @ 50 mls/hr IVPB ONCE ONE Stop: 01/25/17 13:15 Metoprolol Tartrate (Lopressor) 12.5 mg PO BID [facility] Last Admin: 01/25/17 09:30 Dose: 12.5 mg Pantoprazole Sodium (Protonix Susp) 40 mg GT DAILY [facility] Last Admin: 01/25/17 09:30 Dose: 40 mg Polyethylene Glycol (Miralax) 17 gm PO HS [facility] Last Admin: 01/24/17 21:25 Dose: Not Given Spironolactone (Aldactone) 25 mg PO DAILY [facility] Last Admin: 01/25/17 09:30 Dose: 25 mg - Labs Labs: 01/25/17 07:31 01/25/17 07:31 PT 17.3 SECONDS (9.7-12.2) H 01/20/17 07:54 INR 1.5 01/20/17 07:54 APTT 31 SECONDS (21-34) 01/18/17 08:50 - Constitutional Appears: No Acute Distress, Chronically Ill - ENT Exam ENT Exam: Mucous Membranes Dry - Respiratory Exam Respiratory Exam: Decreased Breath Sounds - Rectal Exam Rectal Exam: NORMAL INSPECTION - Neurological Exam Neurological Exam: Altered Assessment and Plan (1) Altered mental status Status: Acute (2) Sepsis Status: Acute (3) UTI (urinary tract infection) Status: Acute (4) History of B-cell lymphoma Status: Chronic (5) Parkinson disease Status: Chronic (6) CHF (congestive heart failure) Status: Chronic (7) Congestive cardiomyopathy Status: Chronic (8) Pleural effusion Status: Acute (9) VRE infection (vancomycin resistant Enterococcus) Status: Acute (10) Infection due to ESBL-producing Escherichia coli Status: Acute (11) Liver enzyme elevation Status: Acute - Assessment and Plan (Free Text) Assessment: Prognosis--NIL Status- Acute Assessment: Thrombocytopenia most probably secondary to antibiotics. MDR bacteremia. CHF Lymphoma in remission. Plan: According to Aunt nancy she wants to just give comfort care. No more heroic measures and her daughte will be here tomorrow and make a final decision to stop everything.
[2017-01-25] MEDS: Dextrose 5%/0.45% NS 1,000 ML IV SCH (16:55)
[2017-01-25] MEDS: POLYETHYLENE GLYCOL 3350 17 GM/Dose PACKET PO SCH (21:22)
--- NOTE | 2017-01-25 23:18 | CP.PCM.PN ---
Subjective - Date & Time of Evaluation Date of Evaluation: 01/25/17 Time of Evaluation: 23:18 - Subjective Subjective: AFEBRILE, STUPOROUS, OFF BIPAP. GT unchanged with some drainage from site that is yellow/white LABS REVIEWED. PLEURAL FLUID -VE FUNGAL ELEMENTS. REPEAT BLOOD CULTURES 01/21/17 2:2 SETS -VE GROWTH. INCREASING THROMBOCYTOPENIA NOTED ?SEPSIS VS COLISTIN OFF IV COLISTIN. DISCUSSED WITH PHARMACY. AVYCAZ DOES NOT CAUSE THROMBOCYTOPENIA, BUT DOSE HAS TO BE ADJUSTED DUE TO RISING bun AND CREATININE. WILL DECREASE IV AVYCAZ .94GM GRAMS IVPB EVERY 12 HOURLY FOR NOW.01/25/17. CASE DISCUSSED WITH ATTENDING. THROMBOCYTOPENIA APPEARS TO BE IMMUNE RELATED VS SEPSIS Objective - Vital Signs/Intake and Output Vital Signs (last 24 hours): Temp Pulse Resp BP Pulse Ox 97.9 F 125 H 23 82/53 L 97 01/25/17 16:00 01/25/17 20:28 01/25/17 16:00 01/25/17 16:00 01/25/17 16:00 Intake and Output: 01/25/17 01/26/17 18:59 06:59 Intake Total 530 Balance 530 - Medications Medications: Current Medications Bacitracin (Bacitracin) 1 gm TOP BID [facility] Last Admin: 01/25/17 17:44 Dose: 1 applic Clotrimazole (Lotrimin 1%) 0.5 gm TOP BID [facility] Last Admin: 01/25/17 17:44 Dose: 1 applic Ceftazidime/Avibactam 0.94 gm/ (Sodium Chloride) 100 mls @ 50 mls/hr IV Q12H [facility] Last Admin: 01/25/17 18:34 Dose: 50 mls/hr Dextrose/Sodium Chloride (Dextrose 5%/0.45% Ns 1000 Ml) 1,000 mls @ 45 mls/hr IV .[id number] [facility] Metoprolol Tartrate (Lopressor) 12.5 mg PO BID [facility] Last Admin: 01/25/17 17:44 Dose: Not Given Pantoprazole Sodium (Protonix Susp) 40 mg GT DAILY [facility] Last Admin: 01/25/17 09:30 Dose: 40 mg Polyethylene Glycol (Miralax) 17 gm PO HS [facility] Last Admin: 01/25/17 21:22 Dose: Not Given Spironolactone (Aldactone) 25 mg PO DAILY [facility] Last Admin: 01/25/17 09:30 Dose: 25 mg - Labs Labs: 01/25/17 07:31 01/25/17 07:31 PT 17.3 SECONDS (9.7-12.2) H 01/20/17 07:54 INR 1.5 01/20/17 07:54 APTT 31 SECONDS (21-34) 01/18/17 08:50 - Constitutional Appears: Cachectic, Chronically Ill - Eye Exam Eye Exam: PERRL - ENT Exam ENT Exam: Mucous Membranes Dry - Respiratory Exam Respiratory Exam: Decreased Breath Sounds - Cardiovascular Exam Cardiovascular Exam: Tachycardia, +S1, +S2 - GI/Abdominal Exam GI & Abdominal Exam: Soft, Hypoactive Bowel Sounds (GT TUBE MINIMAL DRAINAGE NOTED.) - Extremities Exam Extremities Exam: absent: Calf Tenderness, Pedal Edema - Neurological Exam Neurological Exam: Altered - Psychiatric Exam Psychiatric exam: Flat Affect - Skin Skin Exam: Warm Assessment and Plan (1) Altered mental status Status: Acute (2) Sepsis Status: Acute (3) UTI (urinary tract infection) Status: Acute (4) CHF (congestive heart failure) Status: Chronic (5) History of B-cell lymphoma Status: Chronic (6) Parkinson disease Status: Chronic - Assessment and Plan (Free Text) Assessment: GRAM-NEGATIVE SEPSIS- SOURCE /CRBSI ?JAYME CATH RESPIRATORY FAILURE / PNEUMONIA CHF WITH RIGHT-SIDED LARGE EFFUSION S/P THORACENTESIS 01/21/17 THROMBOCYTOPENIA ?IMMUNE VS SEPSIS VS DIC S/P GRAM-NEGATIVE SEPSIS +VE ESBL +VE E. COLI . HISTORY OF B CELL- LYMPHOMA ( IN REMISSION ) PARKINSONISM. EXIT SITE GT INFECTION+VE ENTEROBACTER-CLOACAE/YEAST Plan BLOOD CULTURE- +VE GNR ? SOURCE CATHETER RELATED SEPSIS/PORT-A-CATH . REPEAT BLOOD CULTURES -2 OUT OF 2 SETS -VE X48HRS HoLD OF pORT-a-cATH REMOVAL IN VIEW OF THROMBOCYTOPENIA AND REPEAT CULTURES BEING NEGATIVE . WILL GIVE A TRIAL OF iv ANTIBIOTICS DECREASE IV AVYCAZ 0.9 GMS IVPB Q 12 HRLY FOR SYNERGY.01/21/17 WATCH RENAL FUNCTION. LOTRISONE LOCALLY TO EXT SITE BID PROGNOSIS GUARDED.FAMILY AWARE.
[2017-01-26] MEDS: Dextrose 5%/0.45% NS 1,000 ML IV SCH (01:21)
--- NOTE | 2017-01-26 07:48 | CP.PCM.PN ---
Subjective - Date & Time of Evaluation Date of Evaluation: 01/26/17 Time of Evaluation: 07:45 - Subjective Subjective: Afebrile. Patient very lethargic today. Awake but non verbal. Colistin had been discontinued due to the drecreasing platelet count and BUN and CREa are increasing. Objective - Vital Signs/Intake and Output Vital Signs (last 24 hours): Temp Pulse Resp BP Pulse Ox 97.8 F 121 H 23 113/76 97 01/26/17 00:00 01/26/17 04:02 01/26/17 00:00 01/26/17 00:00 01/26/17 00:00 Intake and Output: 01/26/17 01/26/17 06:59 18:59 Intake Total 945 Balance 945 - Medications Medications: Current Medications Bacitracin (Bacitracin) 1 gm TOP BID [facility] Last Admin: 01/25/17 17:44 Dose: 1 applic Clotrimazole (Lotrimin 1%) 0.5 gm TOP BID [facility] Last Admin: 01/25/17 17:44 Dose: 1 applic Ceftazidime/Avibactam 0.94 gm/ (Sodium Chloride) 100 mls @ 50 mls/hr IV Q12H [facility] Last Admin: 01/26/17 05:39 Dose: 50 mls/hr Dextrose/Sodium Chloride (Dextrose 5%/0.45% Ns 1000 Ml) 1,000 mls @ 45 mls/hr IV .[id number] [facility] Last Admin: 01/26/17 01:21 Dose: 45 mls/hr Metoprolol Tartrate (Lopressor) 12.5 mg PO BID [facility] Last Admin: 01/25/17 17:44 Dose: Not Given Pantoprazole Sodium (Protonix Susp) 40 mg GT DAILY [facility] Last Admin: 01/25/17 09:30 Dose: 40 mg Polyethylene Glycol (Miralax) 17 gm PO HS [facility] Last Admin: 01/25/17 21:22 Dose: Not Given Spironolactone (Aldactone) 25 mg PO DAILY [facility] Last Admin: 01/25/17 09:30 Dose: 25 mg - Labs Labs: 01/25/17 07:31 01/25/17 07:31 PT 17.3 SECONDS (9.7-12.2) H 01/20/17 07:54 INR 1.5 01/20/17 07:54 APTT 31 SECONDS (21-34) 01/18/17 08:50 - Head Exam Head Exam: ATRAUMATIC, NORMAL INSPECTION, NORMOCEPHALIC - Respiratory Exam Respiratory Exam: Decreased Breath Sounds - Cardiovascular Exam Cardiovascular Exam: REGULAR RHYTHM, +S1, +S2 - GI/Abdominal Exam GI & Abdominal Exam: Soft - Rectal Exam Rectal Exam: Deferred - Neurological Exam Neurological Exam: Altered - Skin Skin Exam: Warm Assessment and Plan (1) Altered mental status Status: Acute (2) Sepsis Status: Acute (3) UTI (urinary tract infection) Status: Acute (4) History of B-cell lymphoma Status: Chronic (5) Parkinson disease Status: Chronic (6) CHF (congestive heart failure) Status: Chronic (7) Congestive cardiomyopathy Status: Chronic (8) Pleural effusion Status: Acute (9) VRE infection (vancomycin resistant Enterococcus) Status: Acute (10) Infection due to ESBL-producing Escherichia coli Status: Acute (11) Liver enzyme elevation Status: Acute - Assessment and Plan (Free Text) Assessment: Prognosis: Nil. Status- acute. Assessment: Bacteremia witrh MDR gram negative rods. Thrombocytopenia. CHF Lymphoma in remission Plan: Plan: Continue IV antibiotics as per DR. Lynn Supportive care.
[2017-01-26 08:03] LABS: EOS # 0.1 K/uL (0.0-0.7); LYMPH # 0.5 K/uL (1.0-4.3); MONO # 0.4 K/uL (0.0-0.8)
[2017-01-26 08:09] LABS: BASO % 0.3 % (0.0-2.0); EOS % 1.6 % (0.0-4.0); HEMATOCRIT 27.7 % (34.0-47.0); MEAN CELL VOLUME 99.7 fL (81.0-99.0); MEAN CORPUSCULAR HEMOGLOBIN 32.7 pg (27.0-31.0); MEAN CORPUSCULAR HGB CONC 32.8 g/dL (33.0-37.0); MEAN PLATELET VOLUME 11.2 fL (7.2-11.7); MONO % 8.2 % (0.0-10.0); WHITE BLOOD COUNT 4.6 K/uL (4.8-10.8)
[2017-01-26 08:23] LABS: ALB/GLOB RATIO 1.1 (1.0-2.1); CALCIUM 8.5 mg/dl (8.6-10.4); TOTAL PROTEIN 3.9 g/dL (6.3-8.3)
[2017-01-26] MEDS: Clotrimazole 1% Cream(30 gm) TOP SCH ×2 (09:44→17:47)
[2017-01-26] MEDS: Bacitracin Ointment 30 GM TUBE TOP SCH ×2 (09:45→17:47)
[2017-01-26] MEDS: Pantoprazole 40 mg Susp UD GT SCH (09:49)
--- NOTE | 2017-01-26 15:03 | CP.PCM.PN ---
Subjective - Date & Time of Evaluation Date of Evaluation: 01/26/17 Time of Evaluation: 15:02 - Subjective Subjective: AFEBRILE, WEAKER POORLY RESPONSIVE . LABS REVEWED WBC 4.6, H/H 9.1 PLATELETS 13 K ?FUNGAL SUPERINFECTION ADD IV DIFLUCAN 100MG IVPB Q 36HRLY. WILL ALSO REPEAT GT TUBE CULTURES DISCUSSED W RN [employer]. Objective - Vital Signs/Intake and Output Vital Signs (last 24 hours): Temp Pulse Resp BP Pulse Ox 97.3 F L 117 H 18 98/62 L 100 01/26/17 07:44 01/26/17 07:44 01/26/17 07:44 01/26/17 07:44 01/26/17 07:44 Intake and Output: 01/26/17 01/26/17 06:59 18:59 Intake Total 945 Balance 945 - Medications Medications: Current Medications Bacitracin (Bacitracin) 1 gm TOP BID [facility] Last Admin: 01/26/17 09:45 Dose: 1 applic Clotrimazole (Lotrimin 1%) 0.5 gm TOP BID [facility] Last Admin: 01/26/17 09:44 Dose: 1 applic Ceftazidime/Avibactam 0.94 gm/ (Sodium Chloride) 100 mls @ 50 mls/hr IV Q12H [facility] Last Admin: 01/26/17 05:39 Dose: 50 mls/hr Dextrose/Sodium Chloride (Dextrose 5%/0.45% Ns 1000 Ml) 1,000 mls @ 45 mls/hr IV .[id number] [facility] Last Admin: 01/26/17 01:21 Dose: 45 mls/hr Potassium Chloride (Potassium Chloride 20 Meq/100 Ml) 20 meq in 100 mls @ 50 mls/hr IVPB ONCE ONE Stop: 01/27/17 13:59 Fluconazole 100 mg/ (Miscellaneous) 50 mls @ 100 mls/hr IVPB Q36H [facility] Metoprolol Tartrate (Lopressor) 12.5 mg PO BID [facility] Last Admin: 01/26/17 09:47 Dose: Not Given Pantoprazole Sodium (Protonix Susp) 40 mg GT DAILY [facility] Last Admin: 01/26/17 09:49 Dose: 40 mg Polyethylene Glycol (Miralax) 17 gm PO HS [facility] Last Admin: 01/25/17 21:22 Dose: Not Given Spironolactone (Aldactone) 25 mg PO DAILY [facility] Last Admin: 01/26/17 09:47 Dose: Not Given - Labs Labs: 01/26/17 07:50 01/26/17 07:50 PT 17.3 SECONDS (9.7-12.2) H 01/20/17 07:54 INR 1.5 01/20/17 07:54 APTT 31 SECONDS (21-34) 01/18/17 08:50 - Constitutional Appears: Cachectic, Chronically Ill - Head Exam Head Exam: NORMAL INSPECTION - Eye Exam Eye Exam: PERRL - ENT Exam ENT Exam: Mucous Membranes Dry - Neck Exam Neck Exam: Normal Inspection - Respiratory Exam Respiratory Exam: Decreased Breath Sounds - Cardiovascular Exam Cardiovascular Exam: Tachycardia, +S1, +S2 - GI/Abdominal Exam GI & Abdominal Exam: Soft, Hypoactive Bowel Sounds (GT +VE DRAINAGE PER RN.) - Extremities Exam Extremities Exam: Pedal Edema. absent: Calf Tenderness - Neurological Exam Neurological Exam: Altered - Psychiatric Exam Psychiatric exam: Flat Affect - Skin Skin Exam: Normal Color, Warm Assessment and Plan (1) Altered mental status Status: Acute (2) Sepsis Status: Acute (3) UTI (urinary tract infection) Status: Acute (4) CHF (congestive heart failure) Status: Chronic (5) History of B-cell lymphoma Status: Chronic (6) Parkinson disease Status: Chronic - Assessment and Plan (Free Text) Assessment: GRAM-NEGATIVE SEPSIS- SOURCE NOT CLEAR(REPEAT CULTURES JAYME CATH -VE ) RESPIRATORY FAILURE / PNEUMONIA CHF WITH RIGHT-SIDED LARGE EFFUSION S/P THORACENTESIS 01/21/17 THROMBOCYTOPENIA ?IMMUNE VS SEPSIS VS DIC S/P GRAM-NEGATIVE SEPSIS +VE ESBL +VE E. COLI EXIT SITE GT INFECTION+VE ENTEROBACTER-CLOACAE/YEAST HISTORY OF B CELL- LYMPHOMA ( IN REMISSION ) PARKINSONISM. Plan ON IV DIFLUCAN 100MG IVPG IV Q 36HRLY. 01/26/17. WILL GIVE A TRIAL OF iv ANTIBIOTICS. DECREASE IV AVYCAZ 0.9 GMS IVPB Q 12 HRLY FOR SYNERGY.01/21/17 WATCH RENAL FUNCTION. F/U ELETROLYTES/LFTS. PROGNOSIS POOR.
[2017-01-26] MEDS: Fluconazole IV 200mg/100 ml NS 100 MG in Premixed IV 1 EA IVPB SCH (17:46)
[2017-01-26] MEDS: POLYETHYLENE GLYCOL 3350 17 GM/Dose PACKET PO SCH (21:00)
[2017-01-27 07:42] LABS: BASO % 0.5 % (0.0-2.0); EOS # 0.1 K/uL (0.0-0.7); EOS % 1.4 % (0.0-4.0); HEMATOCRIT 29.3 % (34.0-47.0); LYMPH # 0.8 K/uL (1.0-4.3); LYMPH % 18.6 % (20.0-40.0); MEAN CELL VOLUME 98.3 fL (81.0-99.0); MEAN CORPUSCULAR HEMOGLOBIN 32.5 pg (27.0-31.0); MEAN CORPUSCULAR HGB CONC 33.1 g/dL (33.0-37.0); MEAN PLATELET VOLUME 11.1 fL (7.2-11.7); MONO # 0.3 K/uL (0.0-0.8); MONO % 8.1 % (0.0-10.0); NRBC % 0.1 % (0.0-2.0); RED CELL DISTRIBUTION WIDTH 26.2 % (11.5-14.5); WHITE BLOOD COUNT 4.2 K/uL (4.8-10.8)
[2017-01-27 08:37] LABS: ALB/GLOB RATIO 0.8 (1.0-2.1); BILIRUBIN,TOTAL 2.6 mg/dL (0.2-1.3); CALCIUM 8.5 mg/dl (8.6-10.4); POTASSIUM 2.5 mmol/L (3.6-5.2); TOTAL PROTEIN 4.3 g/dL (6.3-8.3)
[2017-01-27] MEDS: Pantoprazole 40 mg Susp UD GT SCH (10:00)
[2017-01-27] MEDS: Clotrimazole 1% Cream(30 gm) TOP SCH ×2 (10:20→18:16)
[2017-01-27] MEDS: Bacitracin Ointment 30 GM TUBE TOP SCH ×2 (10:20→18:16)
--- NOTE | 2017-01-27 10:57 | CP.PCM.PN ---
Subjective - Date & Time of Evaluation Date of Evaluation: 01/27/17 Time of Evaluation: 10:50 - Subjective Subjective: Patient will just open her eyes now. Very lethargic. Patient is slowly dying. Platelet count is 13,000. K is 2. BUN and CeA Are both elevated. . Patient will go into multi organ failure. Karly at bedside instructed me not to do any more heroic measures. I will give K by infusion. She is on 1 IV antibiotcs.. Objective - Vital Signs/Intake and Output Vital Signs (last 24 hours): Temp Pulse Resp BP Pulse Ox 97.9 F 119 H 20 118/71 100 01/27/17 09:17 01/27/17 09:17 01/27/17 09:17 01/27/17 09:17 01/27/17 09:17 - Medications Medications: Current Medications Bacitracin (Bacitracin) 1 gm TOP BID [facility] Last Admin: 01/27/17 10:20 Dose: 1 applic Clotrimazole (Lotrimin 1%) 0.5 gm TOP BID [facility] Last Admin: 01/27/17 10:20 Dose: 1 applic Ceftazidime/Avibactam 0.94 gm/ (Sodium Chloride) 100 mls @ 50 mls/hr IV Q12H [facility] Last Admin: 01/27/17 06:18 Dose: 50 mls/hr Dextrose/Sodium Chloride (Dextrose 5%/0.45% Ns 1000 Ml) 1,000 mls @ 45 mls/hr IV .[id number] [facility] Last Admin: 01/26/17 01:21 Dose: 45 mls/hr Potassium Chloride (Potassium Chloride 20 Meq/100 Ml) 20 meq in 100 mls @ 50 mls/hr IVPB ONCE ONE Stop: 01/27/17 13:59 Fluconazole 100 mg/ (Miscellaneous) 50 mls @ 100 mls/hr IVPB Q36H [facility] Last Admin: 01/26/17 17:46 Dose: 100 mls/hr Potassium Chloride (Potassium Chloride 20 Meq/100 Ml) 20 meq in 100 mls @ 50 mls/hr IVPB ONCE ONE Stop: 01/27/17 12:35 Potassium Chloride (Potassium Chloride 10 Meq/100 Ml) 10 meq in 100 mls @ 100 mls/hr IVPB ONCE ONE Stop: 01/27/17 11:39 Metoprolol Tartrate (Lopressor) 12.5 mg PO BID [facility] Last Admin: 01/27/17 10:20 Dose: 12.5 mg Pantoprazole Sodium (Protonix Susp) 40 mg GT DAILY [facility] Last Admin: 01/26/17 09:49 Dose: 40 mg Polyethylene Glycol (Miralax) 17 gm PO HS [facility] Last Admin: 01/26/17 21:00 Dose: Not Given Spironolactone (Aldactone) 25 mg PO DAILY [facility] Last Admin: 01/27/17 10:20 Dose: 25 mg - Labs Labs: 01/27/17 07:22 01/27/17 07:22 PT 17.3 SECONDS (9.7-12.2) H 01/20/17 07:54 INR 1.5 01/20/17 07:54 APTT 31 SECONDS (21-34) 01/18/17 08:50 - Constitutional Appears: Chronically Ill - ENT Exam ENT Exam: Mucous Membranes Dry - Cardiovascular Exam Cardiovascular Exam: Tachycardia, +S1, +S2 - GI/Abdominal Exam GI & Abdominal Exam: Soft - Rectal Exam Rectal Exam: Deferred - Neurological Exam Neurological Exam: Alert - Skin Skin Exam: Dry, Intact, Warm Assessment and Plan (1) Altered mental status Status: Acute (2) Sepsis Status: Acute (3) UTI (urinary tract infection) Status: Acute (4) History of B-cell lymphoma Status: Chronic (5) Parkinson disease Status: Chronic (6) CHF (congestive heart failure) Status: Chronic (7) Congestive cardiomyopathy Status: Chronic (8) Pleural effusion Status: Acute (9) VRE infection (vancomycin resistant Enterococcus) Status: Acute (10) Infection due to ESBL-producing Escherichia coli Status: Acute (11) Liver enzyme elevation Status: Acute - Assessment and Plan (Free Text) Assessment: Progression: Prognosis--NIL. Status-Acute Plan: Continue IV fluids and antibiotics Will make the patoient comfortable as per intructions of the daughter.
[2017-01-28] MEDS: Fluconazole IV 200mg/100 ml NS 100 MG in Premixed IV 1 EA IVPB SCH (03:43)
[2017-01-28 07:59] LABS: BASO % 0.9 % (0.0-2.0); EOS # 0.1 K/uL (0.0-0.7); EOS % 1.2 % (0.0-4.0); HEMATOCRIT 30.2 % (34.0-47.0); LYMPH # 1.5 K/uL (1.0-4.3); LYMPH % 32.9 % (20.0-40.0); MEAN CELL VOLUME 97.9 fL (81.0-99.0); MEAN CORPUSCULAR HEMOGLOBIN 32.8 pg (27.0-31.0); MEAN CORPUSCULAR HGB CONC 33.5 g/dL (33.0-37.0); MEAN PLATELET VOLUME 11.5 fL (7.2-11.7); MONO # 0.3 K/uL (0.0-0.8); MONO % 6.6 % (0.0-10.0); NRBC % 0.1 % (0.0-2.0); WHITE BLOOD COUNT 4.6 K/uL (4.8-10.8)
[2017-01-28 08:33] LABS: ALB/GLOB RATIO 1.1 (1.0-2.1); BILIRUBIN,TOTAL 2.3 mg/dL (0.2-1.3); CALCIUM 8.6 mg/dl (8.6-10.4); POTASSIUM 2.6 mmol/L (3.6-5.2); TOTAL PROTEIN 3.7 g/dL (6.3-8.3)
[2017-01-28] MEDS: Pantoprazole 40 mg Susp UD GT SCH (10:23)
[2017-01-28] MEDS: Clotrimazole 1% Cream(30 gm) TOP SCH ×2 (10:30→17:21)
[2017-01-28] MEDS: Bacitracin Ointment 30 GM TUBE TOP SCH ×2 (10:45→17:20)
[2017-01-28] MEDS: Dextrose 5%/0.45% NS 1,000 ML IV SCH ×4 (11:11→21:33)
--- NOTE | 2017-01-28 14:10 | CP.PCM.PN ---
Subjective - Date & Time of Evaluation Date of Evaluation: 01/28/17 Time of Evaluation: 02:05 - Subjective Subjective: Afebrile. Moribund condition. Patient will open her eyes. Movement is nil. Prognosis bvery grave. Family does not want me to do any heroic measures. Objective - Vital Signs/Intake and Output Vital Signs (last 24 hours): Temp Pulse Resp BP Pulse Ox 98.5 F 112 H 20 105/70 99 01/27/17 23:00 01/27/17 23:46 01/27/17 23:00 01/27/17 23:00 01/27/17 23:00 - Medications Medications: Current Medications Bacitracin (Bacitracin) 1 gm TOP BID [facility] Last Admin: 01/28/17 10:45 Dose: 1 applic Clotrimazole (Lotrimin 1%) 0.5 gm TOP BID [facility] Last Admin: 01/28/17 10:30 Dose: 1 applic Ceftazidime/Avibactam 0.94 gm/ (Sodium Chloride) 100 mls @ 50 mls/hr IV Q12H [facility] Last Admin: 01/28/17 05:42 Dose: 50 mls/hr Dextrose/Sodium Chloride (Dextrose 5%/0.45% Ns 1000 Ml) 1,000 mls @ 45 mls/hr IV .[id number] [facility] Last Admin: 01/28/17 11:11 Dose: 45 mls/hr Fluconazole 100 mg/ (Miscellaneous) 50 mls @ 100 mls/hr IVPB Q36H [facility] Last Admin: 01/28/17 03:43 Dose: 100 mls/hr Metoprolol Tartrate (Lopressor) 12.5 mg PO BID [facility] Last Admin: 01/28/17 10:19 Dose: Not Given Pantoprazole Sodium (Protonix Susp) 40 mg GT DAILY [facility] Last Admin: 01/28/17 10:23 Dose: Not Given Spironolactone (Aldactone) 25 mg PO DAILY [facility] Last Admin: 01/28/17 10:17 Dose: Not Given - Labs Labs: 01/28/17 07:35 01/28/17 07:35 PT 17.3 SECONDS (9.7-12.2) H 01/20/17 07:54 INR 1.5 01/20/17 07:54 APTT 31 SECONDS (21-34) 01/18/17 08:50 - Constitutional Appears: Chronically Ill - Head Exam Head Exam: ATRAUMATIC, NORMAL INSPECTION, NORMOCEPHALIC - ENT Exam ENT Exam: Mucous Membranes Dry - Respiratory Exam Respiratory Exam: Decreased Breath Sounds - Cardiovascular Exam Cardiovascular Exam: Tachycardia, REGULAR RHYTHM, +S1, +S2 - GI/Abdominal Exam GI & Abdominal Exam: Soft - Rectal Exam Rectal Exam: Deferred - Back Exam Back Exam: NORMAL INSPECTION - Neurological Exam Neurological Exam: Altered - Skin Skin Exam: Dry, Pallor Assessment and Plan (1) Altered mental status Status: Acute (2) Sepsis Status: Acute (3) UTI (urinary tract infection) Status: Acute (4) History of B-cell lymphoma Status: Chronic (5) Parkinson disease Status: Chronic (6) CHF (congestive heart failure) Status: Chronic (7) Congestive cardiomyopathy Status: Chronic (8) Pleural effusion Status: Acute (9) VRE infection (vancomycin resistant Enterococcus) Status: Acute (10) Infection due to ESBL-producing Escherichia coli Status: Acute (11) Liver enzyme elevation Status: Acute - Assessment and Plan (Free Text) Assessment: Assessment: Prognosis NIL Diagnosis: 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 Thrombocytopenia secondary to Colistin. Diffuse large vcell lymphoma in remission. Non Ischemic cardiomyopathy. CHF. Hypokalemia.
[2017-01-28] MEDS ORDERED: Potassium Ch 20mEq in D5-1/2NS 1,000 ML IV SCH (14:15)
--- NOTE | 2017-01-28 19:20 | CP.PCM.PN ---
Subjective - Date & Time of Evaluation Date of Evaluation: 01/28/17 Time of Evaluation: 19:20 - Subjective Subjective: AFEBRILE, WEAKER POORLY RESPONSIVE . PATIENT NOT ON ANY FEEDINGS OR TPN LABS REVEWED LFTS TRANSAMINASES NORMAL, ALKALINE PHOSPHATASE 99 NORMAL T.BILI 2.3 STABLE WBC 4.6, H/H 10.1 PLATELETS 17 K ?FUNGAL SUPERINFECTION ON IV DIFLUCAN 100MG IVPB Q 36HRLY. ON IV AVYCAZ 0.94GM IV Q 12HRLY. REPEAT GT TUBE CULTURES - P CASE DISCUSSED WITH DR BANDA. CONSIDER ENTERAL FEEDINGS VIA NGT . WILL DISCUSS WITH GI IN AM. Objective - Vital Signs/Intake and Output Vital Signs (last 24 hours): Temp Pulse Resp BP Pulse Ox 98.2 F 131 H 20 99/50 L 98 01/28/17 15:53 01/28/17 15:53 01/28/17 15:53 01/28/17 15:53 01/28/17 15:53 - Medications Medications: Current Medications Bacitracin (Bacitracin) 1 gm TOP BID [facility] Last Admin: 01/28/17 17:20 Dose: 1 applic Clotrimazole (Lotrimin 1%) 0.5 gm TOP BID [facility] Last Admin: 01/28/17 17:21 Dose: 1 applic Ceftazidime/Avibactam 0.94 gm/ (Sodium Chloride) 100 mls @ 50 mls/hr IV Q12H [facility] Last Admin: 01/28/17 17:34 Dose: 50 mls/hr Dextrose/Sodium Chloride (Dextrose 5%/0.45% Ns 1000 Ml) 1,000 mls @ 45 mls/hr IV .[id number] [facility] Last Admin: 01/28/17 17:17 Dose: Not Given Fluconazole 100 mg/ (Miscellaneous) 50 mls @ 100 mls/hr IVPB Q36H [facility] Last Admin: 01/28/17 03:43 Dose: 100 mls/hr Dextrose/Sodium Chloride (Dextrose 5%/0.45% Ns 1000 Ml) 1,000 mls @ 45 mls/hr IV .[id number] [facility] Last Admin: 01/28/17 14:32 Dose: 45 mls/hr Metoprolol Tartrate (Lopressor) 12.5 mg PO BID [facility] Last Admin: 01/28/17 17:17 Dose: Not Given Pantoprazole Sodium (Protonix Susp) 40 mg GT DAILY [facility] Last Admin: 01/28/17 10:23 Dose: Not Given Spironolactone (Aldactone) 25 mg PO DAILY [facility] Last Admin: 01/28/17 10:17 Dose: Not Given - Labs Labs: 01/28/17 07:35 01/28/17 07:35 PT 17.3 SECONDS (9.7-12.2) H 01/20/17 07:54 INR 1.5 01/20/17 07:54 APTT 31 SECONDS (21-34) 01/18/17 08:50 - Constitutional Appears: No Acute Distress, Cachectic, Chronically Ill - Head Exam Head Exam: NORMAL INSPECTION - Eye Exam Eye Exam: PERRL, Scleral icterus - ENT Exam ENT Exam: Mucous Membranes Dry - Neck Exam Neck Exam: Normal Inspection - Respiratory Exam Respiratory Exam: Decreased Breath Sounds - Cardiovascular Exam Cardiovascular Exam: Tachycardia, +S1, +S2 - GI/Abdominal Exam GI & Abdominal Exam: Soft, Normal Bowel Sounds Additional comments: PEG IN PLACE. DECREASE DRAINAGE. - Extremities Exam Extremities Exam: Pedal Edema. absent: Calf Tenderness - Neurological Exam Neurological Exam: Altered - Psychiatric Exam Psychiatric exam: Flat Affect - Skin Skin Exam: Warm Assessment and Plan (1) Altered mental status Status: Acute (2) Sepsis Status: Acute (3) UTI (urinary tract infection) Status: Acute (4) CHF (congestive heart failure) Status: Chronic (5) History of B-cell lymphoma Status: Chronic (6) Parkinson disease Status: Chronic - Assessment and Plan (Free Text) Assessment: GRAM-NEGATIVE SEPSIS- SOURCE NOT CLEAR(REPEAT CULTURES JAYME CATH -VE ) RESPIRATORY FAILURE / PNEUMONIA CHF WITH RIGHT-SIDED LARGE EFFUSION S/P THORACENTESIS 01/21/17 THROMBOCYTOPENIA ?IMMUNE VS SEPSIS VS DIC S/P GRAM-NEGATIVE SEPSIS +VE ESBL +VE E. COLI EXIT SITE GT INFECTION+VE ENTEROBACTER-CLOACAE/YEAST HISTORY OF B CELL- LYMPHOMA ( IN REMISSION ) PARKINSONISM. Plan ON IV DIFLUCAN 100MG IVPG IV Q 36HRLY. 01/26/17. ON IV AVYCAZ 0.9 GMS IVPB Q 12 HRLY FOR SYNERGY.01/21/17 WATCH RENAL FUNCTION. ? NGT FEEDINGS PT BUN INCREASING/ OR CAN GIVE BOLUS FEEDING VIA GT IF GI AGREES.
[2017-01-29 07:56] LABS: BASO % 0.6 % (0.0-2.0); EOS % 0.7 % (0.0-4.0); HEMATOCRIT 28.1 % (34.0-47.0); LYMPH # 0.8 K/uL (1.0-4.3); LYMPH % 23.3 % (20.0-40.0); MEAN CELL VOLUME 97.8 fL (81.0-99.0); MEAN CORPUSCULAR HEMOGLOBIN 31.7 pg (27.0-31.0); MEAN CORPUSCULAR HGB CONC 32.4 g/dL (33.0-37.0); MEAN PLATELET VOLUME 12.7 fL (7.2-11.7); MONO # 0.3 K/uL (0.0-0.8); MONO % 8.2 % (0.0-10.0); NRBC % 0.3 % (0.0-2.0); RED CELL DISTRIBUTION WIDTH 26.5 % (11.5-14.5); WHITE BLOOD COUNT 3.3 K/uL (4.8-10.8)
[2017-01-29 08:33] LABS: CALCIUM 8.3 mg/dl (8.6-10.4)
[2017-01-29 08:42] LABS: POTASSIUM 2.4 mmol/L (3.6-5.2)
[2017-01-29] MEDS ORDERED: Potassium Chloride 20 mEq/15 ml LIQ UD PEG ONE (10:00)
[2017-01-29] MEDS ORDERED: Potassium Chloride 20 mEq ER Tab PO SCH (10:00)
[2017-01-29] MEDS: Clotrimazole 1% Cream(30 gm) TOP SCH ×2 (10:39→17:41)
[2017-01-29] MEDS: Bacitracin Ointment 30 GM TUBE TOP SCH ×2 (10:39→17:41)
[2017-01-29] MEDS: Pantoprazole 40 mg Susp UD GT SCH (10:40)
--- NOTE | 2017-01-29 11:15 | CP.PCM.PN ---
Subjective - Date & Time of Evaluation Date of Evaluation: 01/29/17 Time of Evaluation: 11:10 - Subjective Subjective: Patient is awke today andmoaning. Non verbal. K is 2.4 and platelet count is 33,000. Aunt of patient does not want Iv hyperalimantation for the pariuent anymore nor does she want an NG tube to be inserted. She is amenable to start PEG feeding for now and if there is evedence of lerakage she wants me to stop it. and leave the patient alone for now. Objective - Vital Signs/Intake and Output Vital Signs (last 24 hours): Temp Pulse Resp BP Pulse Ox 98.2 F 123 H 22 95/62 L 100 01/29/17 07:00 01/29/17 07:00 01/29/17 07:00 01/29/17 07:00 01/29/17 07:00 Intake and Output: 01/29/17 01/29/17 06:59 18:59 Intake Total 360 Balance 360 - Medications Medications: Current Medications Bacitracin (Bacitracin) 1 gm TOP BID [facility] Last Admin: 01/29/17 10:39 Dose: 1 applic Clotrimazole (Lotrimin 1%) 0.5 gm TOP BID [facility] Last Admin: 01/29/17 10:39 Dose: 1 applic Ceftazidime/Avibactam 0.94 gm/ (Sodium Chloride) 100 mls @ 50 mls/hr IV Q12H [facility] Last Admin: 01/29/17 06:24 Dose: 50 mls/hr Fluconazole 100 mg/ (Miscellaneous) 50 mls @ 100 mls/hr IVPB Q36H [facility] Last Admin: 01/28/17 03:43 Dose: 100 mls/hr Dextrose/Sodium Chloride (Dextrose 5%/0.45% Ns 1000 Ml) 1,000 mls @ 45 mls/hr IV .[id number] [facility] Last Admin: 01/28/17 21:33 Dose: 45 mls/hr Potassium Chloride (Potassium Chloride 20 Meq/100 Ml) 20 meq in 100 mls @ 50 mls/hr IVPB ONCE ONE Stop: 01/29/17 11:59 Last Admin: 01/29/17 10:40 Dose: 50 mls/hr Metoprolol Tartrate (Lopressor) 12.5 mg PO BID [facility] Last Admin: 01/29/17 10:38 Dose: Not Given Pantoprazole Sodium (Protonix Susp) 40 mg GT DAILY [facility] Last Admin: 01/29/17 10:40 Dose: 40 mg Spironolactone (Aldactone) 25 mg PO DAILY [facility] Last Admin: 01/29/17 10:34 Dose: Not Given - Labs Labs: 01/29/17 07:32 01/29/17 07:32 PT 17.3 SECONDS (9.7-12.2) H 01/20/17 07:54 INR 1.5 01/20/17 07:54 APTT 31 SECONDS (21-34) 01/18/17 08:50 - Constitutional Appears: Chronically Ill - ENT Exam ENT Exam: Mucous Membranes Dry - Respiratory Exam Respiratory Exam: Decreased Breath Sounds, NORMAL BREATHING PATTERN - Cardiovascular Exam Cardiovascular Exam: Tachycardia, REGULAR RHYTHM, +S1, +S2 - Rectal Exam Rectal Exam: Deferred - Neurological Exam Neurological Exam: Altered, Awake - Skin Skin Exam: Dry, Intact, Warm Assessment and Plan (1) Altered mental status Status: Acute (2) Sepsis Status: Acute (3) UTI (urinary tract infection) Status: Acute (4) History of B-cell lymphoma Status: Chronic (5) Parkinson disease Status: Chronic (6) CHF (congestive heart failure) Status: Chronic (7) Congestive cardiomyopathy Status: Chronic (8) Pleural effusion Status: Acute (9) VRE infection (vancomycin resistant Enterococcus) Status: Acute (10) Infection due to ESBL-producing Escherichia coli Status: Acute (11) Liver enzyme elevation Status: Acute - Assessment and Plan (Free Text) Assessment: Assessment: MDR infection at PEG site. Cardiomyopathy. CHF. Anemia nad thrombocytopenia. Hypokalemia. Leaking PEG. prognosis-NIL. Plan: PLAN: Will start PEG feeding today. Will continue IV antibiotics as per CONG Lynn. K by IV and via PEG.
--- NOTE | 2017-01-29 12:10 | CP.PCM.PN ---
Subjective - Date & Time of Evaluation Date of Evaluation: 01/29/17 Time of Evaluation: 12:10 - Subjective Subjective: afebrile Opening eyes as per family/RN. STARTED ON GT FEEDINGS. lABS REVIEWED. wOUND CULTURES g-TUBE- +VE HONG PARAPSOLOSIS ( usually sensitive to fluconazole. ) Continue IV antibiotics/and IV antifungals. Objective - Vital Signs/Intake and Output Vital Signs (last 24 hours): Temp Pulse Resp BP Pulse Ox 98.2 F 123 H 22 95/62 L 100 01/29/17 07:00 01/29/17 07:00 01/29/17 07:00 01/29/17 07:00 01/29/17 07:00 Intake and Output: 01/29/17 01/29/17 06:59 18:59 Intake Total 360 Balance 360 - Medications Medications: Current Medications Bacitracin (Bacitracin) 1 gm TOP BID [facility] Last Admin: 01/29/17 10:39 Dose: 1 applic Clotrimazole (Lotrimin 1%) 0.5 gm TOP BID [facility] Last Admin: 01/29/17 10:39 Dose: 1 applic Ceftazidime/Avibactam 0.94 gm/ (Sodium Chloride) 100 mls @ 50 mls/hr IV Q12H [facility] Last Admin: 01/29/17 06:24 Dose: 50 mls/hr Fluconazole 100 mg/ (Miscellaneous) 50 mls @ 100 mls/hr IVPB Q36H [facility] Last Admin: 01/28/17 03:43 Dose: 100 mls/hr Dextrose/Sodium Chloride (Dextrose 5%/0.45% Ns 1000 Ml) 1,000 mls @ 45 mls/hr IV .[id number] [facility] Last Admin: 01/28/17 21:33 Dose: 45 mls/hr Metoprolol Tartrate (Lopressor) 12.5 mg PO BID [facility] Last Admin: 01/29/17 10:38 Dose: Not Given Pantoprazole Sodium (Protonix Susp) 40 mg GT DAILY [facility] Last Admin: 01/29/17 10:40 Dose: 40 mg Spironolactone (Aldactone) 25 mg PO DAILY [facility] Last Admin: 01/29/17 10:34 Dose: Not Given - Labs Labs: 01/29/17 07:32 01/29/17 07:32 PT 17.3 SECONDS (9.7-12.2) H 01/20/17 07:54 INR 1.5 01/20/17 07:54 APTT 31 SECONDS (21-34) 01/18/17 08:50 - Constitutional Appears: No Acute Distress, Cachectic, Chronically Ill - Head Exam Head Exam: NORMAL INSPECTION - Eye Exam Eye Exam: EOMI, PERRL, Scleral icterus - ENT Exam ENT Exam: Normal Oropharynx - Neck Exam Neck Exam: Normal Inspection - Respiratory Exam Respiratory Exam: Rhonchi (basilar bilaterally.) - Cardiovascular Exam Cardiovascular Exam: Tachycardia, REGULAR RHYTHM, +S1, +S2 - GI/Abdominal Exam GI & Abdominal Exam: Soft, Hypoactive Bowel Sounds (GT in place.) - Extremities Exam Extremities Exam: Pedal Edema. absent: Calf Tenderness - Neurological Exam Neurological Exam: Awake - Psychiatric Exam Psychiatric exam: Flat Affect - Skin Skin Exam: Warm Assessment and Plan (1) Altered mental status Status: Acute (2) Sepsis Status: Acute (3) UTI (urinary tract infection) Status: Acute (4) CHF (congestive heart failure) Status: Chronic (5) History of B-cell lymphoma Status: Chronic (6) Parkinson disease Status: Chronic - Assessment and Plan (Free Text) Assessment: GRAM-NEGATIVE SEPSIS- SOURCE NOT CLEAR(REPEAT CULTURES JAYME CATH -VE ) RESPIRATORY FAILURE / PNEUMONIA CHF WITH RIGHT-SIDED LARGE EFFUSION S/P THORACENTESIS 01/21/17 THROMBOCYTOPENIA ?IMMUNE VS SEPSIS VS DIC S/P GRAM-NEGATIVE SEPSIS +VE ESBL +VE E. COLI EXIT SITE GT INFECTION+VE ENTEROBACTER-CLOACAE/YEAST HISTORY OF B CELL- LYMPHOMA ( IN REMISSION ) PARKINSONISM. Plan ON IV DIFLUCAN 100MG IVPG IV Q 36HRLY. 01/26/17. ON IV AVYCAZ 0.9 GMS IVPB Q 12 HRLY FOR SYNERGY.01/21/17 WATCH RENAL FUNCTION. CONTINUE G-TUBE FEEDINGS PER PMD.
[2017-01-29] MEDS: Dextrose 5%/0.45% NS 1,000 ML IV SCH ×2 (12:45→22:22)
[2017-01-29] MEDS: Fluconazole IV 200mg/100 ml NS 100 MG in Premixed IV 1 EA IVPB SCH (16:12)
[2017-01-30 08:17] LABS: CALCIUM 8.1 mg/dl (8.6-10.4); POTASSIUM 2.8 mmol/L (3.6-5.2)
[2017-01-30 08:26] LABS: BASO % 0.2 % (0.0-2.0); EOS % 0.1 % (0.0-4.0); HEMATOCRIT 31.4 % (34.0-47.0); LYMPH # 1.3 K/uL (1.0-4.3); LYMPH % 14.4 % (20.0-40.0); MEAN CELL VOLUME 97.9 fL (81.0-99.0); MEAN CORPUSCULAR HEMOGLOBIN 32.6 pg (27.0-31.0); MEAN CORPUSCULAR HGB CONC 33.3 g/dL (33.0-37.0); MEAN PLATELET VOLUME 12.7 fL (7.2-11.7); MONO # 0.4 K/uL (0.0-0.8); NRBC % 0.5 % (0.0-2.0); RED CELL DISTRIBUTION WIDTH 27.6 % (11.5-14.5)
[2017-01-30 08:32] LABS: WHITE BLOOD COUNT 9.2 K/uL (4.8-10.8)
[2017-01-30] MEDS: Pantoprazole 40 mg Susp UD GT SCH (09:42)
[2017-01-30] MEDS: Bacitracin Ointment 30 GM TUBE TOP SCH ×2 (09:43→19:00)
[2017-01-30] MEDS: Clotrimazole 1% Cream(30 gm) TOP SCH ×2 (09:44→19:14)
[2017-01-30] MEDS ORDERED: Potassium Chloride 20 mEq/15 ml LIQ UD PO SCH (10:00)
--- NOTE | 2017-01-30 11:13 | CP.PCM.PN ---
Subjective - Date & Time of Evaluation Date of Evaluation: 01/30/17 Time of Evaluation: 11:05 - Subjective Subjective: Very lethargic today. Patient with slight labored breathinh. Vomited this AM. Vomitus was the PEG feeding and the PEG site was the feeding material. Will stop the feeding all together today and continue the IV fluids with K . Platelet is increasing with cessation of the Colistin.Family do not want an NG tube inserted so with Hyperalimentation so will just give the present IV fluids at 45 cc /hourly. Objective - Vital Signs/Intake and Output Vital Signs (last 24 hours): Temp Pulse Resp BP Pulse Ox 97.9 F 113 H 20 87/57 L 100 01/30/17 07:00 01/30/17 07:00 01/30/17 07:00 01/30/17 07:00 01/30/17 07:00 Intake and Output: 01/30/17 01/30/17 06:59 18:59 Intake Total 620 Balance 620 - Medications Medications: Current Medications Bacitracin (Bacitracin) 1 gm TOP BID [facility] Last Admin: 01/30/17 09:43 Dose: 1 applic Clotrimazole (Lotrimin 1%) 0.5 gm TOP BID [facility] Last Admin: 01/30/17 09:44 Dose: 1 applic Ceftazidime/Avibactam 0.94 gm/ (Sodium Chloride) 100 mls @ 50 mls/hr IV Q12H [facility] Last Admin: 01/30/17 06:29 Dose: 50 mls/hr Fluconazole 100 mg/ (Miscellaneous) 50 mls @ 100 mls/hr IVPB Q36H [facility] Last Admin: 01/29/17 16:12 Dose: 100 mls/hr Dextrose/Sodium Chloride (Dextrose 5%/0.45% Ns 1000 Ml) 1,000 mls @ 45 mls/hr IV .[id number] [facility] Last Admin: 01/29/17 22:22 Dose: 45 mls/hr Potassium Chloride (Potassium Chloride 20 Meq/100 Ml) 20 meq in 100 mls @ 50 mls/hr IVPB ONCE ONE Stop: 01/30/17 12:06 Last Admin: 01/30/17 11:06 Dose: 50 mls/hr Metoprolol Tartrate (Lopressor) 12.5 mg PO BID [facility] Last Admin: 01/30/17 09:42 Dose: Not Given Pantoprazole Sodium (Protonix Susp) 40 mg GT DAILY [facility] Last Admin: 01/30/17 09:42 Dose: 40 mg Potassium Chloride (Potassium Chloride Oral Soln) 40 meq PO DAILY [facility] Last Admin: 01/30/17 09:42 Dose: 40 meq Spironolactone (Aldactone) 25 mg PO DAILY [facility] Last Admin: 01/30/17 09:42 Dose: 25 mg - Labs Labs: 01/30/17 08:12 01/30/17 07:27 PT 17.3 SECONDS (9.7-12.2) H 01/20/17 07:54 INR 1.5 01/20/17 07:54 APTT 31 SECONDS (21-34) 01/18/17 08:50 - Constitutional Appears: In Acute Distress, Chronically Ill - ENT Exam ENT Exam: Mucous Membranes Dry - Respiratory Exam Respiratory Exam: Decreased Breath Sounds, Respiratory Distress - Cardiovascular Exam Cardiovascular Exam: Tachycardia, REGULAR RHYTHM, +S1, +S2 - GI/Abdominal Exam GI & Abdominal Exam: Soft - Rectal Exam Rectal Exam: NORMAL INSPECTION - Back Exam Back Exam: NORMAL INSPECTION - Neurological Exam Neurological Exam: Altered Additional comments: Lethargic - Skin Skin Exam: Dry, Intact, Warm Assessment and Plan (1) Altered mental status Status: Acute (2) Sepsis Status: Acute (3) UTI (urinary tract infection) Status: Acute (4) History of B-cell lymphoma Status: Chronic (5) Parkinson disease Status: Chronic (6) CHF (congestive heart failure) Status: Chronic (7) Congestive cardiomyopathy Status: Chronic (8) Pleural effusion Status: Acute (9) VRE infection (vancomycin resistant Enterococcus) Status: Acute (10) Infection due to ESBL-producing Escherichia coli Status: Acute (11) Liver enzyme elevation Status: Acute - Assessment and Plan (Free Text) Assessment: Assessment: MDR infection os th PEG site Fungus inf of the PEG site. Parkinsons Cardiomyopathy. CHF. Pleural effusion Thrombocytopenia resolving. Prognosis-----NIL. Status-----Acute.
--- NOTE | 2017-01-30 11:52 | RAD ---
PROCEDURE: CHEST RADIOGRAPH, 1 VIEW HISTORY: Dyspnea COMPARISON: Portable chest 01/24/2017. FINDINGS: Right-sided matter port unchanged in position. LUNGS: Diminishing airspace disease right base with none definite at the left. PLEURA: Limited left pleural effusion is in question with none appreciated the right. CARDIOVASCULAR: Cardiomegaly is stable. Diminishing pulmonary venous congestion noted. OSSEOUS STRUCTURES: No significant abnormalities. VISUALIZED UPPER ABDOMEN: Normal. OTHER FINDINGS: None. IMPRESSION: Diminishing pulmonary venous congestion. Diminishing right basilar airspace disease. Trace of pleural effusion again evident. No right pleural effusion.
--- NOTE | 2017-01-30 11:52 | CP.PCM.PN ---
Subjective - Date & Time of Evaluation Date of Evaluation: 01/30/17 Time of Evaluation: 11:52 - Subjective Subjective: afebrile, LETHARGIC OPENS EYES. EVENTS NOTED. Objective - Vital Signs/Intake and Output Vital Signs (last 24 hours): Temp Pulse Resp BP Pulse Ox 97.9 F 113 H 20 87/57 L 100 01/30/17 07:00 01/30/17 07:00 01/30/17 07:00 01/30/17 07:00 01/30/17 07:00 Intake and Output: 01/30/17 01/30/17 06:59 18:59 Intake Total 620 Balance 620 - Medications Medications: Current Medications Bacitracin (Bacitracin) 1 gm TOP BID [facility] Last Admin: 01/30/17 09:43 Dose: 1 applic Clotrimazole (Lotrimin 1%) 0.5 gm TOP BID [facility] Last Admin: 01/30/17 09:44 Dose: 1 applic Ceftazidime/Avibactam 0.94 gm/ (Sodium Chloride) 100 mls @ 50 mls/hr IV Q12H [facility] Last Admin: 01/30/17 06:29 Dose: 50 mls/hr Fluconazole 100 mg/ (Miscellaneous) 50 mls @ 100 mls/hr IVPB Q36H [facility] Last Admin: 01/29/17 16:12 Dose: 100 mls/hr Potassium Chloride (Potassium Chloride 20 Meq/100 Ml) 20 meq in 100 mls @ 50 mls/hr IVPB ONCE ONE Stop: 01/30/17 12:06 Last Admin: 01/30/17 11:06 Dose: 50 mls/hr Potassium Chloride/Dextrose/Sod Cl (Potassium Chl 40 Meq In D5-1/2ns) 1,000 mls @ 45 mls/hr IV .[id number] [facility] Metoprolol Tartrate (Lopressor) 12.5 mg PO BID [facility] Last Admin: 01/30/17 09:42 Dose: Not Given Pantoprazole Sodium (Protonix Susp) 40 mg GT DAILY [facility] Last Admin: 01/30/17 09:42 Dose: 40 mg Potassium Chloride (Potassium Chloride Oral Soln) 40 meq PO DAILY [facility] Last Admin: 01/30/17 09:42 Dose: 40 meq Spironolactone (Aldactone) 25 mg PO DAILY [facility] Last Admin: 01/30/17 09:42 Dose: 25 mg - Labs Labs: 01/30/17 08:12 01/30/17 07:27 PT 17.3 SECONDS (9.7-12.2) H 01/20/17 07:54 INR 1.5 01/20/17 07:54 APTT 31 SECONDS (21-34) 01/18/17 08:50 - Constitutional Appears: No Acute Distress, Confused, Cachectic, Chronically Ill - Head Exam Head Exam: NORMAL INSPECTION - Eye Exam Eye Exam: EOMI, PERRL, Scleral icterus - ENT Exam ENT Exam: Mucous Membranes Dry - Neck Exam Neck Exam: Normal Inspection - Respiratory Exam Respiratory Exam: Decreased Breath Sounds - Cardiovascular Exam Cardiovascular Exam: Tachycardia, REGULAR RHYTHM, +S1, +S2 - GI/Abdominal Exam GI & Abdominal Exam: Soft (GT WORKING.), Normal Bowel Sounds - Extremities Exam Extremities Exam: Pedal Edema. absent: Calf Tenderness - Neurological Exam Neurological Exam: Awake - Psychiatric Exam Psychiatric exam: Flat Affect - Skin Skin Exam: Warm Assessment and Plan (1) Altered mental status Status: Acute (2) Sepsis Status: Acute (3) UTI (urinary tract infection) Status: Acute (4) CHF (congestive heart failure) Status: Chronic (5) History of B-cell lymphoma Status: Chronic (6) Parkinson disease Status: Chronic - Assessment and Plan (Free Text) Assessment: GRAM-NEGATIVE SEPSIS- SOURCE NOT CLEAR(REPEAT CULTURES JAYME CATH -VE ) RESPIRATORY FAILURE / PNEUMONIA CHF WITH RIGHT-SIDED LARGE EFFUSION S/P THORACENTESIS 01/21/17 THROMBOCYTOPENIA ?IMMUNE VS SEPSIS VS DIC S/P GRAM-NEGATIVE SEPSIS +VE ESBL +VE E. COLI EXIT SITE GT INFECTION+VE ENTEROBACTER-CLOACAE/YEAST HISTORY OF B CELL- LYMPHOMA ( IN REMISSION ) PARKINSONISM. Plan ON IV DIFLUCAN 100MG IVPG IV Q 36HRLY. 01/26/17. ON IV AVYCAZ 0.9 GMS IVPB Q 12 HRLY FOR SYNERGY.01/21/17 WATCH RENAL FUNCTION. CONTINUE G-TUBE FEEDINGS PER PMD.
[2017-01-30] MEDS ORDERED: Potassium Chl 40 mEq in D5-1/2 1,000 ML IV SCH (12:00)
[2017-01-31] MEDS: Fluconazole IV 200mg/100 ml NS 100 MG in Premixed IV 1 EA IVPB SCH (04:29)
[2017-01-31 08:17] VITALS: BP 185/58; O2SAT 95
[2017-01-31 08:17] LABS: BILIRUBIN,TOTAL 3.3 mg/dL (0.2-1.3); CALCIUM 8.5 mg/dl (8.6-10.4); POTASSIUM 4.7 mmol/L (3.6-5.2); TOTAL PROTEIN 3.6 g/dL (6.3-8.3)
[2017-01-31] MEDS ORDERED: Dextrose 5%/0.45% NS 1,000 ML IV SCH (10:45)
--- NOTE | 2017-01-31 10:49 | CP.PCM.PN ---
Subjective - Date & Time of Evaluation Date of Evaluation: 01/31/17 Time of Evaluation: 10:45 - Subjective Subjective: Patient's condition is grav. Will open eyes but non verbal. Could not tolerate tube feeding yesterday. Chest x-ray showed no aspiration. Labored breathinh today. Tachycardic. Objective - Vital Signs/Intake and Output Vital Signs (last 24 hours): Temp Pulse Resp BP Pulse Ox 97.9 F 142 H 21 185/58 H 95 01/31/17 08:16 01/31/17 08:16 01/31/17 08:16 01/31/17 08:16 01/31/17 08:16 - Medications Medications: Current Medications Bacitracin (Bacitracin) 1 gm TOP BID [facility] Last Admin: 01/30/17 19:00 Dose: 1 applic Clotrimazole (Lotrimin 1%) 0.5 gm TOP BID [facility] Last Admin: 01/30/17 19:14 Dose: 1 applic Ceftazidime/Avibactam 0.94 gm/ (Sodium Chloride) 100 mls @ 50 mls/hr IV Q12H [facility] Last Admin: 01/31/17 05:33 Dose: 50 mls/hr Fluconazole 100 mg/ (Miscellaneous) 50 mls @ 100 mls/hr IVPB Q36H [facility] Last Admin: 01/31/17 04:29 Dose: 100 mls/hr Dextrose/Sodium Chloride (Dextrose 5%/0.45% Ns 1000 Ml) 1,000 mls @ 45 mls/hr IV .[id number] [facility] Metoprolol Tartrate (Lopressor) 12.5 mg PO BID [facility] Last Admin: 01/30/17 17:54 Dose: Not Given Pantoprazole Sodium (Protonix Susp) 40 mg GT DAILY [facility] Last Admin: 01/30/17 09:42 Dose: 40 mg Spironolactone (Aldactone) 25 mg PO DAILY [facility] Last Admin: 01/30/17 09:42 Dose: 25 mg - Labs Labs: 01/30/17 08:12 01/31/17 07:07 PT 17.3 SECONDS (9.7-12.2) H 01/20/17 07:54 INR 1.5 01/20/17 07:54 APTT 31 SECONDS (21-34) 01/18/17 08:50 - Constitutional Appears: In Acute Distress, Chronically Ill - ENT Exam ENT Exam: Mucous Membranes Dry - Respiratory Exam Respiratory Exam: Accessory Muscle Use, Decreased Breath Sounds - Cardiovascular Exam Cardiovascular Exam: Tachycardia, REGULAR RHYTHM, +S1, +S2 - GI/Abdominal Exam GI & Abdominal Exam: Soft - Neurological Exam Neurological Exam: Altered - Skin Skin Exam: Dry, Intact, Warm Assessment and Plan (1) Altered mental status Status: Acute (2) Sepsis Status: Acute (3) UTI (urinary tract infection) Status: Acute (4) History of B-cell lymphoma Status: Chronic (5) Parkinson disease Status: Chronic (6) CHF (congestive heart failure) Status: Chronic (7) Congestive cardiomyopathy Status: Chronic (8) Pleural effusion Status: Acute (9) VRE infection (vancomycin resistant Enterococcus) Status: Acute (10) Infection due to ESBL-producing Escherichia coli Status: Acute (11) Liver enzyme elevation Status: Acute - Assessment and Plan (Free Text) Assessment: Assessment: Non Ischemic cardiomyopathy CHF Infected PEG Site with MDR., and yeast Parkinson disease. Diffuse large cell lymphoma in remission. Renal insufficiency. Anemia, thrombocytopenia. Plan: Plan: Continue IV antibiotics Continue IV fluids Prognosis--Poor Status--Acute.
[2017-01-31] MEDS: Pantoprazole 40 mg Susp UD GT SCH (11:59)
--- NOTE | 2017-01-31 23:23 | CP.PCM.PN ---
Subjective - Date & Time of Evaluation Date of Evaluation: 01/31/17 Time of Evaluation: 23:23 - Subjective Subjective: EVENTS NOTED. PATIENT DID NOT TOLERATE TUBE FEEDINGS PATIENT'S CONDITION DETERIORATING. FAMILY WISHES NOTED. CONTINUE SUPPORTIVE COMFORT CARE. WILL SIGN OFF. Objective - Vital Signs/Intake and Output Vital Signs (last 24 hours): Temp Pulse Resp BP Pulse Ox 97.9 F 142 H 21 185/58 H 95 01/31/17 08:16 01/31/17 08:16 01/31/17 08:16 01/31/17 08:16 01/31/17 08:16 - Medications Medications: Current Medications Pantoprazole Sodium (Protonix Susp) 40 mg GT DAILY [facility] Last Admin: 01/31/17 11:59 Dose: Not Given Spironolactone (Aldactone) 25 mg PO DAILY [facility] Last Admin: 01/31/17 11:59 Dose: Not Given - Labs Labs: 01/30/17 08:12 01/31/17 07:07 PT 17.3 SECONDS (9.7-12.2) H 01/20/17 07:54 INR 1.5 01/20/17 07:54 APTT 31 SECONDS (21-34) 01/18/17 08:50 - Constitutional Appears: Confused, Cachectic, Chronically Ill - Eye Exam Eye Exam: Scleral icterus Pupil Exam: PERRL - ENT Exam ENT Exam: Mucous Membranes Dry - Respiratory Exam Respiratory Exam: Decreased Breath Sounds - Cardiovascular Exam Cardiovascular Exam: Tachycardia, +S1, +S2 - GI/Abdominal Exam GI & Abdominal Exam: Soft, Hypoactive Bowel Sounds (GT IN PLACE, DRESSING INTACT.) - Extremities Exam Extremities Exam: Pedal Edema - Neurological Exam Neurological Exam: Altered, Awake - Skin Skin Exam: Pallor Assessment and Plan (1) Altered mental status Assessment & Plan: PROGNOSIS GRAVE. Status: Acute (2) Sepsis Assessment & Plan: OFF ABX . Status: Acute (3) UTI (urinary tract infection) Status: Acute (4) CHF (congestive heart failure) Status: Chronic (5) History of B-cell lymphoma Status: Chronic (6) Parkinson disease Status: Chronic
[2017-02-01 00:44] VITALS: TEMP 98
[2017-02-01 07:55] VITALS: PULSE 146; RESP 16
--- NOTE | 2017-02-01 10:34 | CP.PCM.PN ---
Subjective - Date & Time of Evaluation Date of Evaluation: 02/01/17 Time of Evaluation: 10:30 - Subjective Subjective: Patient is semi conscious. Pulse rate is 148/min. Opens her eyes but non verbal. Afebrile. Resp rate is 40. Prognosis very grave. Objective - Vital Signs/Intake and Output Vital Signs (last 24 hours): Temp Pulse Resp BP Pulse Ox 98 F 146 H 16 185/58 H 95 02/01/17 07:54 02/01/17 07:54 02/01/17 07:54 01/31/17 08:16 02/01/17 07:54 - Medications Medications: Current Medications Pantoprazole Sodium (Protonix Susp) 40 mg GT DAILY [facility] Last Admin: 01/31/17 11:59 Dose: Not Given Spironolactone (Aldactone) 25 mg PO DAILY [facility] Last Admin: 01/31/17 11:59 Dose: Not Given - Labs Labs: 01/30/17 08:12 01/31/17 07:07 PT 17.3 SECONDS (9.7-12.2) H 01/20/17 07:54 INR 1.5 01/20/17 07:54 APTT 31 SECONDS (21-34) 01/18/17 08:50 - ENT Exam ENT Exam: Mucous Membranes Dry - Respiratory Exam Respiratory Exam: Accessory Muscle Use, Decreased Breath Sounds, Respiratory Distress - Cardiovascular Exam Cardiovascular Exam: Tachycardia, +S1, +S2 - GI/Abdominal Exam GI & Abdominal Exam: Soft - Rectal Exam Rectal Exam: Deferred - Neurological Exam Additional comments: Patient is semi conscious. - Skin Skin Exam: Dry, Intact, Warm Assessment and Plan (1) Altered mental status Status: Acute (2) Sepsis Status: Acute (3) UTI (urinary tract infection) Status: Acute (4) History of B-cell lymphoma Status: Chronic (5) Parkinson disease Status: Chronic (6) CHF (congestive heart failure) Status: Chronic (7) Congestive cardiomyopathy Status: Chronic (8) Pleural effusion Status: Acute (9) VRE infection (vancomycin resistant Enterococcus) Status: Acute (10) Infection due to ESBL-producing Escherichia coli Status: Acute (11) Liver enzyme elevation Status: Acute - Assessment and Plan (Free Text) Assessment: Assessment: Patient's condition is very grave. Diagnosis: SEpsis. Cardiomyopathy. CHF. Diffuse large cell lymphoma in remission. Parkinsons Disease. Thrombocytopenia. Hypokalemia. Plan: Plan: As per family's wishes all IV fluids and antibiotics had been discontinued since . Prognosis-0
--- NOTE | 2017-02-01 12:57 | CP.PCM.PRO ---
Pronouncement of Note - Clinical Findings Physical Exam: No Response Verbal/Painful Stimuli, Absent Heart & Breath Sounds , Absence of Vital Signs - Pronouncement Time Time of Pronouncement of : 12:50 - Notifications Pronouncement Notifications: Family Notified, Atending Notified Database Modeler Notified: Yes - Autopsy Autopsy Requested: No [place] [id number]
== END 2017-02-01 12:50 | DRG 871 ==
LOC: C.ER 12:21 → C.9E 15:15 → C.6T 17:00 → C.9I 12-19 15:26 → C.3T 12-22 10:53 → C.5S 01-08 05:30
PROVIDERS: ADMIT Legal Medicine; ATTEND Legal Medicine
PROC: 5A09457 Assistance with Respiratory Ventilation, 24-96 Consecutive Hours, Continuous Positive Airway Pressure (ICD-10-PCS; 2016-12-19)
PROC: 0W993ZZ Drainage of Right Pleural Cavity, Percutaneous Approach (ICD-10-PCS; principal; 2016-12-20)
PROC: 0W993ZZ Drainage of Right Pleural Cavity, Percutaneous Approach (ICD-10-PCS; 2016-12-26)
PROC: 0DJ08ZZ Inspection of Upper Intestinal Tract, Via Natural or Artificial Opening Endoscopic (ICD-10-PCS; 2017-01-01)
PROC: 0DH63UZ Insertion of Feeding Device into Stomach, Percutaneous Approach (ICD-10-PCS; 2017-01-01)
PROC: 3E0G76Z Introduction of Nutritional Substance into Upper GI, Via Natural or Artificial Opening (ICD-10-PCS; 2017-01-01)
PROC: 0W993ZX Drainage of Right Pleural Cavity, Percutaneous Approach, Diagnostic (ICD-10-PCS; 2017-01-09)
PROC: 0W993ZZ Drainage of Right Pleural Cavity, Percutaneous Approach (ICD-10-PCS; 2017-01-09)
PROC: 0W993ZZ Drainage of Right Pleural Cavity, Percutaneous Approach (ICD-10-PCS; 2017-01-21)
DX: A41.51 Sepsis due to Escherichia coli [E. coli] (principal); J96.90 Respiratory failure, unspecified, unspecified whether with hypoxia or hypercapnia; G92 Toxic encephalopathy; E46 Unspecified protein-calorie malnutrition; J90 Pleural effusion, not elsewhere classified; J18.9 Pneumonia, unspecified organism; D68.9 Coagulation defect, unspecified; I27.29 Other secondary pulmonary hypertension; C83.30 Diffuse large B-cell lymphoma, unspecified site; I42.0 Dilated cardiomyopathy; N39.0 Urinary tract infection, site not specified; J98.11 Atelectasis; K94.23 Gastrostomy malfunction; R18.8 Other ascites; I50.813 Acute on chronic right heart failure; D69.59 Other secondary thrombocytopenia; G20 Parkinson's disease; R65.20 Severe sepsis without septic shock; E86.0 Dehydration; Z16.21 Resistance to vancomycin; B95.2 Enterococcus as the cause of diseases classified elsewhere; D64.9 Anemia, unspecified; T36.8X5A Adverse effect of other systemic antibiotics, initial encounter; E03.9 Hypothyroidism, unspecified; E87.6 Hypokalemia; T42.8X5A Adverse effect of antiparkinsonism drugs and other central muscle-tone depressants, initial encounter; I11.0 Hypertensive heart disease with heart failure; K75.9 Inflammatory liver disease, unspecified; K76.0 Fatty (change of) liver, not elsewhere classified; N28.9 Disorder of kidney and ureter, unspecified; R13.10 Dysphagia, unspecified; R62.7 Adult failure to thrive; Z16.12 Extended spectrum beta lactamase (ESBL) resistance; Z16.24 Resistance to multiple antibiotics; Z51.5 Encounter for palliative care; Z66 Do not resuscitate